=== PATIENT | male | born 1940 | race Caucasian/White ===

== ENCOUNTER → 2016-11-16 | Outpatient (CLI) | payer MEDICARE, OTHER ==
[~2016-11-16] MED LIST: AML5T PO; AMLO10TA2 PO; CEPH500C GT; CLCX200C; HYDR-3730 PO; HYDR1TAB PO; HYDR50TA3; KCL20TCR PO; LEVO500T80 PO; LISI20TA PO; POLY17PO6 PO; POTA10TA6 PO
--- NOTE | 2016-11-16 09:13 | Diagnostic Imaging Report ---
INDICATION: Hypertension. COMPARISON: None. DISCUSSION: Sonographic evaluation of the bilateral kidneys, aorta, and renal arteries was performed. Images were assessed for grayscale appearance, color and spectral Doppler blood flow. The kidneys appear normal in echotexture and size bilaterally without evidence of hydronephrosis or renal mass. No shadowing stone identified. The right kidney measures 10.9 cm. The left kidney measures 10.5 cm. The resistive indices are normal within the bilateral kidneys measuring 0.72 respectively. The proximal most left renal artery is obscured by bowel. Otherwise are normal flow velocities and waveforms present within the bilateral renal arteries with no sonographic evidence for renal artery stenosis at this time. IMPRESSION: 1. Normal sonographic appearance of the bilateral kidneys. 2. No sonographic evidence for renal artery stenosis at this time. Dictated by: Dictated on workstation # [id number]
== END ==
LOC: RAD 07:22
PROVIDERS: ATTEND Internal Medicine Cardiovascular Disease
DX: I10 Essential (primary) hypertension (principal); G89.29 Other chronic pain; Z87.891 Personal history of nicotine dependence
CPT/HCPCS: 93975

== ENCOUNTER → 2016-11-24 | Outpatient (CLI) | payer MEDICARE, OTHER ==
--- NOTE | 2016-11-25 07:46 | ECHOCARDIOGRAPHY REPORT ---
DATE OF SERVICE: 11/24/2016 REFERRING PHYSICIAN: Dr. Ramsey MEASUREMENT: LVID end diastolic 4.1, IVS thickness 1.3, LVPW thickness 1.3, left atrial diameter 3.3, ejection fraction 60%. FINDINGS: 1. Technical quality is good. 2. The left ventricle is normal in size with mild left ventricular hypertrophy noted diffusely. Systolic function appeared to be normal, estimated ejection fraction 60%, diastolic dysfunction is suggested by Doppler. 3. The left atrium is normal in size. No clot or thrombus were seen within the left atrium. 4. The right atrium and right ventricle are normal in size. No clot or thrombus were seen within the right side. 5. Mitral valve is normal in morphology with mild mitral regurgitation noted by color Doppler flow. No mitral valve prolapse. No mitral valve stenosis. 6. Aortic valve is calcified. There is no significant aortic valve stenosis or regurgitation was seen. 7. Tricuspid valve is normal in morphology with mild tricuspid regurgitation noted by color Doppler flow. Doppler across the tricuspid valve estimated pulmonary artery pressure of 15+ right atrial pressure. 8. Pulmonic valve is functioning normally. 9. No pericardial effusion. CONCLUSION: 1. Normal left ventricular size and systolic function, estimated ejection fraction 60%, mild left ventricular hypertrophy, diastolic dysfunction is suggested by Doppler. 2. Mild mitral and tricuspid regurgitation. 3. Estimated pulmonary artery pressure of 25 mmHg. Job ID: [id number] DocumentID: [id number] Dictated Date: 11/24/2016 15:04:12 Coating Machine Helper Date: 11/24/2016 18:54:23 Dictated By: TIERRA MARIN MD
== END ==
LOC: CARD 07:33
PROVIDERS: ATTEND Internal Medicine Cardiovascular Disease
DX: I10 Essential (primary) hypertension (principal); G89.29 Other chronic pain; Z87.891 Personal history of nicotine dependence
CPT/HCPCS: 93306

== ENCOUNTER → 2017-04-27 | Outpatient (CLI) | payer MEDICARE, OTHER ==
[~2017-04-27] VITALS: Ht 175.3 cm; Wt 86.2 kg
[~2017-04-27] MED LIST changes: +CATHETER FLUSH 10 ML SYR IV PRN; +REGADENOSON 0.4 MG/5 ML SYR (LEXISCAN) IV ONE
[2017-04-27 09:05] VITALS: BP 180/79
--- NOTE | 2017-04-28 11:14 | STRESS TEST ---
DATE OF SERVICE: 04/27/2017 LEXISCAN MYOVIEW STRESS TEST REPORT REFERRING PHYSICIAN: Dr. Ramesy. Baseline heart rate is 47. Baseline blood pressure is 180/79. Baseline EKG is sinus rhythm with no ischemic changes. In summary, the patient was injected with 10.45 mCi of technetium-99 Myoview and the resting images were obtained. Then, the patient received 0.4 mg of Lexiscan followed by 30.4 mCi of technetium-99 Myoview. Throughout the test, there were no EKG changes. The resting and stress images were reviewed and compared in the short axis, horizontal long axis, and vertical long axis views. Review of the images showed diaphragmatic attenuation. There is decreased uptake at the true apex, anteroapical and inferoapical segment of the left ventricle with mild reversibility. SSS is 5, SDS 4, TID value 1.06. On the gated images, the left ventricle appeared to be normal size with normal contractility. Calculated ejection fraction is 56%. CONCLUSION: 1. The patient tolerated the Lexiscan well. 2. Mild ischemia involving the true apex anteroapical and inferoapical segment. 3. Normal left ventricular size with normal contractility, calculated ejection fraction 56%. Job ID: [id number] DocumentID: [id number] Dictated Date: 04/27/2017 14:41:44 Grizzly Worker Date: 04/27/2017 19:13:48 Dictated By: TIERRA MARIN MD
== END ==
LOC: CARD 06:53
PROVIDERS: ATTEND Internal Medicine Cardiovascular Disease
DX: I10 Essential (primary) hypertension (principal); D47.2 Monoclonal gammopathy; R60.9 Edema, unspecified; G89.29 Other chronic pain; Z87.891 Personal history of nicotine dependence
CPT/HCPCS: 78452; 93017

== ENCOUNTER 2017-05-04 11:21 | Day surgery (SDC) | payer MEDICARE, OTHER ==
[~2017-05-04] VITALS: Ht 175.3 cm; Wt 86.2 kg
[2017-05-04] VITALS (11 sets, daily range): BP systolic 143–175; BP diastolic 67–102
[~2017-05-04 11:21] MED LIST changes: -CATHETER FLUSH 10 ML SYR IV PRN; -REGADENOSON 0.4 MG/5 ML SYR (LEXISCAN) IV ONE
[2017-05-04] MEDS ORDERED: HEParin 1000 UNIT/ML (10ML VIAL) FOR BOLUS ONE (11:28)
[2017-05-04] MEDS ORDERED: NS IV 1000 ML 3,000 ML ONE (11:28)
[2017-05-04 11:55] LABS: ALBUMIN 4.1 GM/DL (3.2-4.5); BILIRUBIN,DIRECT 0.3 MG/DL (0.0-0.3); BILIRUBIN,INDIRECT 0.5 MG/DL; BILIRUBIN,TOTAL 0.8 MG/DL (0.1-1.0); TOTAL PROTEIN 7.1 GM/DL (6.4-8.2)
[2017-05-04 12:05] LABS: MEAN PLATELET VOLUME 9.7 FL (7.4-10.4); RED BLOOD COUNT 4.79 10^6/uL (4.35-5.85); RED CELL DISTRIBUTION WIDTH 13.6 % (10.0-14.5); WHITE BLOOD COUNT 7.1 10^3/uL (4.3-11.0)
[2017-05-04] MEDS ORDERED: NS IV 1000 ML 1,000 ML IV SCH ×2 (12:15→14:21)
[2017-05-04 12:22] LABS: INR 0.9 (0.8-1.4); PROTHROMBIN TIME PATIENT 12.6 SEC (12.2-14.7)
--- NOTE | 2017-05-04 12:23 | Diagnostic Imaging Report ---
EXAMINATION: Portable upright radiograph of the chest. INDICATION: Abnormal stress test. FINDINGS: The lungs are clear. The heart size is at the upper limits of normal. No effusion or pneumothorax. The mediastinum and silvestre appear unremarkable. IMPRESSION: The cardiac size is at the upper limits of normal. Dictated by: Dictated on workstation # [id number]
[2017-05-04 12:32] LABS: ALANINE AMINOTRANSFERASE 17 U/L (0-55); ALBUMIN 4.2 GM/DL (3.2-4.5); ANION GAP 9 MMOL/L (5-14); ASPARTATE AMINO TRANSFERASE 20 U/L (5-34); BILIRUBIN,TOTAL 0.9 MG/DL (0.1-1.0); BLOOD UREA NITROGEN 12 MG/DL (7-18); BUN/CREATININE RATIO 16; CALCIUM 9.4 MG/DL (8.5-10.1); CARBON DIOXIDE 26 MMOL/L (21-32); CHLORIDE 104 MMOL/L (98-107); CHOLESTEROL 188 MG/DL (< 200); CREATININE SERUM 0.77 MG/DL (0.60-1.30); DIRECT LDL 125 MG/DL (1-129); GFR ESTIMATED > 60; GLUCOSE 114 MG/DL (70-105); POTASSIUM 3.6 MMOL/L (3.6-5.0); SODIUM 139 MMOL/L (135-145); TOTAL PROTEIN 7.2 GM/DL (6.4-8.2); TRIGLYCERIDES 94 MG/DL (<150); VLDL CHOLESTEROL 19 MG/DL (5-40)
[2017-05-04] MEDS ORDERED: FURO20TA4 PO (12:52)
[2017-05-04] MEDS ORDERED: LISI-552 PO (12:52)
[2017-05-04] MEDS ORDERED: NFNEB10T PO (12:52)
[2017-05-04] MEDS ORDERED: DOCU-143 PO (12:57)
[2017-05-04] MEDS ORDERED: CELE200C PO (12:57)
[2017-05-04] MEDS ORDERED: CETI10TA20 PO (12:57)
[2017-05-04] MEDS ORDERED: AMLO10TA2 PO (12:57)
[2017-05-04] MEDS ORDERED: CLON0.1T PO (12:57)
[2017-05-04] MEDS ORDERED: FURO40TA4 PO (12:57)
[2017-05-04] MEDS ORDERED: fentaNYL INJECTION 100 MCG/2 ML AMP ONE (13:24)
[2017-05-04] MEDS ORDERED: MIDAZOLAM 5 MG/5 ML (VERSED) VIAL ONE (13:24)
--- NOTE | 2017-05-04 14:21 | Cardiac Procedure Note-CS/ASA ---
Pre-Procedure Note Pre-Op Procedure Note H&P Reviewed The H&P was reviewed, patient examined and no changes noted. Date H&P Reviewed: May 04, 2017 Time H&P Reviewed: 13:00 Conscious Sedation Pre-Proced Time Reviewed: 13:00 ASA Class: 3 Airway Mallampati Classification: ([place] dee-ni' appropriate class) I. II. III, IV Lungs Heart ASA score ASA 1: a normal healthy patient ASA 2: a patient with a mild systemic disease (mid diabetes, controlled hypertension, obesity x ASA 3: a patient with a severe systemic disease that limits activity (angina , COPD, prior Myocardial infarction) ASA 4: a patient with an incapacitating disease that is a constant threat to life (CHF, renal failure) ASA 5: a moribund patient not expected to survive 24 hrs. (ruptured aneurysm) ASA 6: a declared brain patient whose organs are being harvested. For emergent operations, add the letter E after the classification Grade 3 Sedation Plan: Analgesia, Amnesia, Plan communicated to team members, Discussed options with patient/fam, Discussed risks with patient/fam Note The patient is an appropriate candidate to undergo the planned procedure, sedation, and anesthesia. The patient immediately re-assessed prior to indication. TIERRA MARIN MD May 04, 2017 14:21
--- NOTE | 2017-05-04 14:23 | Discharge Inst-Post CATH ---
Discharge Inst-CATH Post Cardiac Cath D/C Inst Follow Up/Plan Appointment with Dr Blas's office in 2-4 weeks CARDIAC CATH DISCHARGE INSTRUCTIONS *Hold Metformin for 48 hours post heart cath. ACTIVITY * Go Home directly and rest. * Limit activity of the leg (or wrist if it was used) for 7 days including aerobics, swimming, jogging, bicycling, etc. * Restrict stair-climbing for 7 days if possible, if not, climb up with your non -cath leg, then bring together on the same step. * Avoid lifting, pushing, pulling or excessive movement of the affected extremity for 7 days. * Customary sexual activity may be resumed after 2 days-use caution not to use a position that strains or causes pain to the affected extremity. * No driving for 24 hours. * NO SMOKING. * Avoid straining for bowel movements for 7 days. * Gentle walking on level ground is allowed. * Returning to work will depend on the type of procedure and the results. Your doctor will discuss this with you. CALL YOUR DOCTOR FOR ANY OF THE FOLLOWING: *If bleeding from the puncture site occurs- Apply gentle pressure to site with clean cloth and call your doctor or EMS. * If a knot or lump forms under the skin, increases in size, or causes pain. * If bruising appears to be worsening or moving further down your leg instead of disappearing. * Temperature above 101 F. CARE OF YOUR GROIN INCISION; * Bruising or purple discoloration of the skin near the puncture site is common. * You may shower only, no bathtub bathing for 5 days. Be careful to avoid slipping as your leg may feel stiff. * If a closure device was used on your femoral artery, please see the attached guide regarding care of the device and your leg. * REMOVE the dressing from your groin the next day after your procedure in the shower. CARE OF YOUR WRIST INCISION; * Bruising or purple discoloration of the skin near the puncture site is common. * You may shower. * DO NOT submerge wrist. * Remove dressing in 24 hours. TIERRA BLAS MD May 04, 2017 14:23
--- NOTE | 2017-05-04 14:26 | Cardiac Cath Report ---
Cardiac Cath Report Physician (s)/Brand Coordinator (s) Physician TIERRA MARIN MD Pre-Procedure Diagnosis Pre-Procedure Diagnosis: coronary artery disease Post-Procedure Note Procedure Start Date: May 04, 2017 Procedure Start Time: 14:23 Name of Procedure: heart catheterization Findings/Procedure Note PROCEDURE NOTE: After explaining the procedure to the patient, all pros and cons were explained, all questions were answered. The patient signed the consent and then she was placed on the cardiac catheterization laboratory. The patient was placed on the cardiac catheterization laboratory. Groin was prepped SL fashion local anesthesia was used. Sheath placed in the artery. Judie right and left catheter were used to access the coronary system. Pigtail was used to access the left ventricular cavity. Left ventriculogram At the end of the procedure the sheath was removed. Closure device was used FINDINGS: Hemodynamics LV 136/7 end-diastolic pressure of 7 Aorta 136/55 mean of 84 ANATOMY: Left Main his aneurysmal with no significant obstructive disease Left Anterior Descending is bifurcating proximally into a large diagonal artery and proper LAD. Both the same size with slow flow no significant obstructive disease Left Circumflex nondominant artery with slow flow obstructive disease Right Coronory Artery is a large dominant artery with diffuse ectasia and slow flow no significant obstructive disease LV Gram was not done, LVEDP is normal CONCLUSION: 1. 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 Large dominant right coronary artery with diffuse ectasia, slow flow nonobstructive disease 3. Normal left ventricular end-diastolic pressure DISCUSSION AND RECOMMENDATION: medical therapy is recommended no intervention is warranted Anesthesia Type: Conscious Sedation Estimated blood loss (mL): 10 ml Contrast Amount: 55 ml Total Radiation Dose: 599 mGy Post-Procedure Diagnosis Post-operative diagnosis: coronary artery disease Hypertension Hyperlipidemia TIERRA MARIN MD May 04, 2017 14:25
[2017-05-04] MEDS ORDERED: PATIENT MAY USE OWN MEDS, ALL PO SCH (14:30)
== END 2017-05-04 19:28 | disposition home or self-care (01) ==
LOC: CATH 11:21 → ICU 14:54 → CATH 19:28
PROVIDERS: ATTEND Internal Medicine Cardiovascular Disease
DX: I25.10 Atherosclerotic heart disease of native coronary artery without angina pectoris (principal); I10 Essential (primary) hypertension; E78.5 Hyperlipidemia, unspecified; I49.5 Sick sinus syndrome; I65.23 Occlusion and stenosis of bilateral carotid arteries; R60.0 Localized edema; M19.91 Primary osteoarthritis, unspecified site; Z79.899 Other long term (current) drug therapy
CPT/HCPCS: 36415; 71010; 80053; 80061; 80076; 82248; 85027; 85610; 85730; 87081; 93005; 93458

== ENCOUNTER → 2017-09-30 | Outpatient (CLI) | payer MEDICARE, OTHER ==
[~2017-09-30] MED LIST changes: +BARIUM SUSPENSION 2.1% (VANILLA SILQ) 450 ML PO ONE; +CELE200C PO; +CETI10TA20 PO; +CLON0.1T PO; +DOCU-143 PO; +FURO20TA4 PO; +FURO40TA4 PO; +IOHEXOL 350 MG/ML 100 ML (OMNIPAQUE 350) VIAL IV ONE; +LISI-552 PO; +NFNEB10T PO; +NS 250 ML (IVPB) BAG IV ONE
--- NOTE | 2017-09-30 09:32 | Diagnostic Imaging Report ---
PROCEDURE: CT chest with contrast, CT abdomen and pelvis with and without contrast. TECHNIQUE: Pre and post intravenous contrast axial imaging of the abdomen and pelvis and post contrast axial imaging of the chest were performed. INDICATION: History of melanoma COMPARISON: Abdomen and pelvis CT dated 10/17/2015. Chest CT dated 01/11/2008 FINDINGS: Chest CT: There are a few tiny nodules seen in the lungs which are unchanged from 2008 and are likely granuloma. No new or suspicious pulmonary nodules are seen. There is no consolidation. There is no pneumothorax or pleural fluid. There is minimal atelectasis or scarring at the left lung base. There is a new 5 mm low-density nodule in the left thyroid lobe. There are a few prominent mediastinal lymph nodes, however, they are unchanged from 2008 and likely benign. No suspicious adenopathy is seen. There are degenerative changes in the spine. Abdomen/pelvis CT: A cyst near the caudate lobe of the liver is unchanged. No new focal hepatic mass is seen. The portal vein enhances normally. The gallbladder appears unremarkable. There is no biliary dilatation. The pancreas, spleen and adrenal glands appear unremarkable. The kidneys appear unremarkable. No urinary tract calcifications or obstructive change is seen. The bladder appears unremarkable. The prostate is surgically absent. There is no evidence of appendicitis or focal inflammatory process. There is diverticulosis without evidence of diverticulitis. There is atherosclerosis and ectasia of the abdominal aorta. There is no free fluid, free air or adenopathy. There are postoperative and degenerative changes in the spine. IMPRESSION: 1. In the chest, there is no convincing evidence of metastatic disease. Tiny nodules and prominent mediastinal lymph nodes are unchanged from 2008 and likely related to granulomatous disease. 2. There is a new tiny low-density nodule in the left thyroid lobe likely benign but indeterminate. 3. In the abdomen and pelvis, no convincing evidence of metastatic disease 4. Stable findings include left hepatic cysts and diverticulosis without evidence of diverticulitis as well as atherosclerosis and ectasia of the abdominal aorta. Dictated by: Dictated on workstation # [id number]
== END ==
LOC: RAD 07:46
PROVIDERS: ATTEND Internal Medicine Hematology & Oncology
DX: K76.89 Other specified diseases of liver (principal); K57.90 Diverticulosis of intestine, part unspecified, without perforation or abscess without bleeding; I70.0 Atherosclerosis of aorta; I77.811 Abdominal aortic ectasia; Z85.820 Personal history of malignant melanoma of skin; Z90.79 Acquired absence of other genital organ(s); Z87.891 Personal history of nicotine dependence
CPT/HCPCS: 71260; 74178

== ENCOUNTER 2017-10-05 05:33 | Outpatient (CLI) | payer MEDICARE, OTHER ==
[~2017-10-05] VITALS: Ht 175.3 cm; Wt 86.2 kg
[~2017-10-05 05:33] MED LIST changes: -BARIUM SUSPENSION 2.1% (VANILLA SILQ) 450 ML PO ONE; -IOHEXOL 350 MG/ML 100 ML (OMNIPAQUE 350) VIAL IV ONE; -NS 250 ML (IVPB) BAG IV ONE
[2017-10-05] MEDS ORDERED: ASPI-586 PO (12:26)
[2017-10-05] MEDS ORDERED: FURO20TA4 PO (12:26)
[2017-10-05] MEDS ORDERED: FISH1CAP15 PO (12:26)
== END 2017-10-05 12:49 ==
LOC: PREOP 05:33
PROVIDERS: ATTEND Surgery
DX: Z01.818 Encounter for other preprocedural examination (principal); C43.62 Malignant melanoma of left upper limb, including shoulder

== ENCOUNTER → 2017-10-06 | Outpatient (CLI) | payer MEDICARE, OTHER ==
[~2017-10-06] MED LIST changes: +ACHD5005 PO; +ASPI-586 PO; +FISH1CAP15 PO
--- NOTE | 2017-10-06 10:27 | Diagnostic Imaging Report ---
PROCEDURE: US Thyroid. TECHNIQUE: Multiple Real-time grayscale images were obtained of the thyroid in various projections. INDICATION: Thyroid nodule seen on CT. FINDINGS: The right lobe of the thyroid measures 4.6 x 1.5 x 1.6 cm. The left lobe of the thyroid measures 3.5 x 1.5 x 1.4 cm. There is a slightly complex cyst in the left lobe measuring 0.7 x 0.6 x 0.7 cm. No other discrete solid or cystic mass is appreciated. IMPRESSION: Slightly complex cyst in the left lobe of the thyroid measuring up to 0.7 cm; otherwise, unremarkable thyroid ultrasound. Dictated by: Dictated on workstation # [id number]
== END ==
LOC: RAD 07:47
PROVIDERS: ATTEND Surgery
DX: E04.1 Nontoxic single thyroid nodule (principal)
CPT/HCPCS: 76536

== ENCOUNTER 2017-10-07 07:18 | Day surgery (SDC) | payer MEDICARE, OTHER ==
[~2017-10-07] VITALS: Ht 175.3 cm; Wt 86.2 kg
[~2017-10-07 07:18] MED LIST changes: -ACHD5005 PO
[2017-10-07] MEDS ORDERED: LACTATED RINGERS 1,000 ML IV PRN (07:27)
[2017-10-07] MEDS ORDERED: ceFAZolin 2 GM IV Premixed 50 ML IV ONE (07:30)
[2017-10-07 07:52] VITALS: BP 176/92
[2017-10-07] MEDS ORDERED: DEXAMETHASONE 10 MG/ML (DECADRON) 1 ML VIAL ONE (09:54)
[2017-10-07] MEDS ORDERED: LIDOCAINE PF 2% 5 ML (XYLOCAINE) VIAL ONE (09:54)
[2017-10-07] MEDS ORDERED: SEVOFLURANE (ULTANE) 15 ML INHAL SOLN ONE ×2 (09:54→13:30)
[2017-10-07] MEDS ORDERED: proPOfol 200 MG/20 ML (DIPRIVAN) VIAL IV ONE (09:54)
[2017-10-07] MEDS ORDERED: ONDANSETRON 4 MG/2 ML (SDV) Z0FRAN ONE (09:54)
[2017-10-07] MEDS ORDERED: fentaNYL INJECTION 100 MCG/2 ML AMP ONE (09:55)
[2017-10-07] MEDS ORDERED: BUP/EPI 0.5% 1:200,000 (SENSORCAINE) 30 ML VIAL ONE (10:11)
--- NOTE | 2017-10-07 10:19 | Progress Note-Pre Operative ---
Pre-Operative Progress Note H&P Reviewed The H&P was reviewed, patient examined and no changes noted. Date Seen by Provider: Oct 03, 2017 Time Seen by Provider: 16:25 Date H&P Reviewed: Oct 07, 2017 Time H&P Reviewed: 10:19 Pre-Operative Diagnosis: Melanoma of left forearm KIKI ROWE MD Oct 07, 2017 10:19 am
[2017-10-07] MEDS ORDERED: EPINEPHrine INJECTION 1 MG/ML AMP ONE (10:31)
[2017-10-07] MEDS ORDERED: INDIGO CARMINE 8 MG/ML 5 ML AMP ONE (10:59)
--- NOTE | 2017-10-07 11:03 | Diagnostic Imaging Report ---
Procedure: Lymphoscintigraphy. Indication: Melanoma of the left lung. Findings: This study was performed following administration of 1.1 mCi of 99 and technetium sulfur colloid in 4 divided doses about the biopsy site in the left forearm. There was uptake of the radiotracer by 2 lymph nodes in the left axilla. The skin over the lymph nodes was marked. Impression: There has been a successful lymphoscintigraphy procedure. Dictated by: Dictated on workstation # [id number]
[2017-10-07] MEDS ORDERED: ATROPINE INJ 0.4 MG/ML SDV ONE (11:24)
[2017-10-07] MEDS ORDERED: fentaNYL INJECTION 100 MCG/2 ML AMP IVP PRN (13:45)
[2017-10-07] MEDS ORDERED: ONDANSETRON 4 MG/2 ML (SDV) Z0FRAN IVP PRN (13:45)
--- NOTE | 2017-10-07 13:55 | Anesthesia-General Post-Op ---
General Patient Condition Mental Status/LOC: Same as Preop Cardiovascular: Satisfactory Nausea/Vomiting: Absent Respiratory: Satisfactory Pain: Controlled Complications: Absent Post Op Complications Complications None Follow Up Care/Instructions Patient Instructions None needed. Anesthesia/Patient Condition Patient Condition Patient is doing well, no complaints, stable vital signs, no apparent adverse anesthesia problems. No complications reported per nursing. CONNIE POWERS CRNA Oct 07, 2017 13:55
--- NOTE | 2017-10-07 14:00 | Operative Report ---
Operative Report Date of Procedure/Surgery Oct 07, 2017 Surgeon (s) KIKI ROWE MD Auto Repair Technician (s): n/a Post-Operative Diagnosis Malignant melanoma left forearm Large, darkly pigmented lymph nodes- left axilla Procedure Performed Wide excision of melanoma from the left forearm(6 x 6 cm) Split thickness skin grafting( 36 cm) Level II axillary dissection Description of Procedure Anesthesia Type: General Estimated blood loss (mL): Minimal Specimen(s) collected/removed level II axillary contents sent in 2 separate containers Melanoma from the left forearm with skin markings Description of the Procedure Indication for the procedure: Excision biopsy of a pigmented lesion, that developed ulceration, performed by his primary physician, Dr. Ramsey, was confirmed to be a deep melanoma, at least 5.1 mm in depth. Metastatic evaluation performed by his oncologist was negative. However, as would be described in the operative report, enlarged and darkly pigmented lymph nodes were found in the ipsilateral axilla. He was offered wide excision of the melanoma with split-thickness skin grafting , combined with sentinel lymph node biopsy. The possibility of requiring conventional axillary dissection was discussed. Informed consent was obtained after reviewing the operative details and complications of hematoma, cardiorespiratory dysfunction and failure of the graft. description of the procedure: Following his admission to the outpatient surgery area, he underwent lymphoscintigraphy using technetium labeled sulfur colloid. Activity was noticed in the ipsilateral axilla. He was then brought to the operating room and general anesthesia induced. Left thigh, left upper extremity and the left axilla were prepared and draped in the usual sterile manner. Ancef was administered intravenously as prophylaxis against wound infection. 5 mL of indigo carmine was injected intradermally into the area around the site of excision biopsy and the skin gently massaged for at least minutes. [place] lymph node biopsy/level II axillary dissection: Left axilla was prepared and draped in the usual sterile manner. Pre-emptive analgesia was established using 0.5 percent Marcaine with epinephrine. A 4 cm incision was made inferior to the axillary hairline, entering the axillary contents. Exploration with the [place] counter did not reveal any significant activity. Further dissection displayed multiple, darkly pigmented lymph nodes just inferior to the axillary vein. A large lymph node at least 4 cm in diameter, was excised separately and sent for histologic examination. Lymphatics were controlled using ligaclips. Further exploration revealed another cluster of enlarged and darkly pigmented nodes close to the chest wall. These were excised en bloc, being sent as a separate specimen. Technically, both specimens should be considered to constitute level II axillary contents. Lymphatics were controlled using ligaclips and hemostasis optimized using the Harmonic scalpel. A 15 [place] Pieter-Pérez drain was left in the axilla, being secured using 2-0 silk sutures. The area was irrigated with saline and the incision closed using 2-0 Vicryl for the subcutaneous tissue and 4-0 Vicryl for skin, in a subcuticular fashion. Wide excision of melanoma left forearm with split thickness skin grafting: A split thickness skin graft was obtained from the left thigh using the dermatome and meshed in a standard fashion. The primary lesion over the left forearm was excised 3 cm margin all around the scar resulting from the excision biopsy. The specimen was oriented with silk sutures and sent for histological examination. Hemostasis was optimized using ligaclips and minimal use of cautery. The skin graft was then placed over the site of excision and secured with kia. A nonadherent dressing was then applied. He tolerated the procedures well, was extubated in the operating room and taken to the recovery room in a stable condition. Findings of the Procedure See op report Allergies and Home Medications Allergies Coded Allergies: No Known Drug Allergies (Unverified , 10/05/17) Home Medications Amlodipine Besylate 10 Mg Tablet, 10 MG PO 1700, (Reported) Aspirin 81 Mg Tablet.dr, 81 MG PO DAILY, (Reported) Celecoxib 200 Mg Capsule, 200 MG PO DAILY, (Reported) Clonidine HCl 0.1 Mg Tablet, 0.1 MG PO BID, (Reported) Docusate Sodium 100 Mg Capsule, 200 MG PO DAILY, (Reported) TAKES 2 (100MG) CAPSULES Fish Oil/Dha/Epa 1 Each Capsule, 2 EACH PO BID, (Reported) Furosemide 20 Mg Tablet, 20 MG PO DAILY, (Reported) Lisinopril 20 Mg Tablet, 20 MG PO DAILY, (Reported) Nebivolol HCl 10 Mg Tab, 10 MG PO DAILY, (Reported) Polyethylene Glycol 3350 17 Gm Powd.pack, 17 GM PO DAILY, (Reported) Patient Home Medication List Home Medication List Reviewed: Yes KIKI ROWE MD Oct 07, 2017 2:00 pm
[2017-10-07] MEDS ORDERED: ACHD5005 PO (14:02)
--- NOTE | 2017-10-07 14:03 | Discharge Inst-Simple/Standard ---
Discharge Inst-Standard Discharge Medications New, Converted or Re-Newed RX: RX on Chart Patient Instructions/Follow Up Plan of Care/Instructions/FU: Left upper extremity to be left untouched until next Tuesday. Left hand to be kept elevated on pillows as much as possible. May reinforce the left thigh with ABD pads as required. Please educate on caring for CONSTANCE drain and have him document output on a daily basis.Follow-up with my nurse on Tuesday for dressing change Activity as Tolerated: Yes Discharge Diet: No Restrictions KIKI ROWE MD Oct 07, 2017 2:03 pm
[2017-10-07] MEDS: morphine INJ 10 MG/ML 1ML (SYR OR VIAL) IVP PRN ×2 (14:05→14:09)
[2017-10-07 14:35] VITALS: BP 136/84
[2017-10-07 15:05] VITALS: BP 136/76
[2017-10-07 15:37] VITALS: BP 136/76
== END 2017-10-07 15:37 | disposition home or self-care (01) ==
LOC: SDC 07:18
PROVIDERS: ATTEND Surgery
DX: C43.62 Malignant melanoma of left upper limb, including shoulder (principal); C77.3 Secondary and unspecified malignant neoplasm of axilla and upper limb lymph nodes; I10 Essential (primary) hypertension; Z79.82 Long term (current) use of aspirin; Z79.899 Other long term (current) drug therapy; Z87.891 Personal history of nicotine dependence
CPT/HCPCS: 78195; 87081

== ENCOUNTER → 2017-10-18 | Outpatient (CLI) | payer MEDICARE, OTHER ==
[~2017-10-18] MED LIST changes: +ACHD5005 PO
--- NOTE | 2017-10-18 13:06 | Diagnostic Imaging Report ---
INDICATION: Malignant melanoma of the left forearm. TECHNIQUE: The serum glucose level at the time of injection was 126 g/dL. The patient was administered 13.3 mCi of F18 FDG intravenously and whole body PET imaging was performed. In addition, a noncontrast CT was performed for attenuation correction and anatomic correlation. COMPARISON: No prior PET/CT studies are available for comparison. FINDINGS: There is symmetric uptake of activity within the brain. No abnormal hypermetabolism within the neck is identified. There are at least 3 hypermetabolic lymph nodes identified in the left axilla. The most inferior lymph node is just anterior to surgical clips in the left axilla with an SUV max of approximately 7. Just cephalad to this, there is a hypermetabolic lymph node located immediately posterior to a set of clips with an SUV max of approximately 6. Slightly more cephalad, there is a slightly hypermetabolic lymph node medial to surgical clips at the level of the clavicular heads with an SUV max of approximately 3. A very low level metabolic node is seen just lateral to this with an SUV max of approximately 2.6. In addition, there appears to be a hypermetabolic lymph node in the left supraclavicular location with an SUV max of approximately 4. No hypermetabolic mediastinal or hilar lymph nodes are seen. The pulmonary parenchyma is unremarkable. Imaging through the abdomen demonstrates physiologic activity within the liver and spleen as well as the genitourinary and GI tracts. There is an area of hypermetabolism noted in the inferior aspect of the right lobe of the liver medially. This is posterior to the gallbladder and demonstrates an SUV max of 5.2; however, no corresponding abnormality is identified at this location on CT. No abnormality on the recent postcontrast CT from 09/30/2017 is identified. There is also a slightly more focal region of uptake involving the right lobe of the liver near the cecum with an SUV max of 5.6. No definite corresponding abnormality is identified on CT and this is indeterminate. Normal bladder activity is seen. No hypermetabolic nodes in the abdomen or pelvis are identified. Imaging through the lower extremities does demonstrate a focus of hypermetabolism immediately posterior to the left knee at the intercondylar notch in the midline. This demonstrates SUV max of 3.5. IMPRESSION: 1. Findings are suggestive of a metastatic lymph node in the left supraclavicular and left axillary region. 2. No thoracic lymphadenopathy or pulmonary metastatic disease is seen. 3. Indeterminate area of hypermetabolism in the right lobe of the liver with no CT correlate. Consideration could be given to performance of an MRI of the abdomen for further characterization. 4. Focal area of hypermetabolism in the region of the cecum with no CT correlate. A colonic lesion cannot be entirely excluded and correlation with colonoscopy would be recommended. 5. Indeterminate focus of hypermetabolism posterior left knee, as described. MRI of the left knee with without intravenous contrast would be useful for further evaluation. Dictated by: Dictated on workstation # [id number]
== END ==
LOC: RAD 08:25
PROVIDERS: ATTEND Surgery
DX: C43.62 Malignant melanoma of left upper limb, including shoulder (principal)

== ENCOUNTER → 2017-10-28 | Outpatient (CLI) | payer MEDICARE, OTHER ==
[~2017-10-28] MED LIST changes: +GADOBUTROL 10 MMOL/10 ML (GADAVIST) VIAL IV ONE
--- NOTE | 2017-10-28 10:22 | Diagnostic Imaging Report ---
PROCEDURE: MR imaging abdomen with and without contrast. TECHNIQUE: Multiplanar, multisequence MR imaging of the abdomen was performed with and without contrast. INDICATION: Abnormal PET scan demonstrating an area of questionable hypermetabolism in the right lobe of the liver, medially just posterior to the gallbladder. The study is performed for further evaluation. FINDINGS: Correlation is made with PET CT from 10/18/2017. There is a small cyst in the right lobe of the liver adjacent to the IVC, measuring 14 mm. No enhancing liver lesion is seen. Specifically, no abnormality in the right lobe medially posterior to the gallbladder is identified to account for the PET CT abnormality. Gallbladder is unremarkable. The pancreas and spleen are unremarkable. No adrenal mass is seen. Kidneys are unremarkable. There is no ascites. There is spinal instrumentation within the lumbar spine. IMPRESSION: No evidence of solid hepatic mass at the area of concern noted on the PET scan. This most likely represented artifact. Patient does have a 14 mm simple cyst more superiorly in the right lobe of the liver. Remainder of the study is unremarkable. Dictated by: Dictated on workstation # [id number]
== END ==
LOC: RAD 07:15
PROVIDERS: ATTEND Internal Medicine Hematology & Oncology
DX: K76.89 Other specified diseases of liver (principal)
CPT/HCPCS: 74183

== ENCOUNTER → 2017-10-29 | Outpatient (CLI) | payer MEDICARE, OTHER ==
--- NOTE | 2017-10-31 14:05 | Diagnostic Imaging Report ---
TECHNIQUE: Multiplanar, multisequence pre and post contrast-enhanced MRI of the left lower extremity was accomplished. INDICATION: History of melanoma. Abnormal findings on recent PET scan within the knee. EXAMINATION: MRI of the left lower extremity with and without contrast, 10/29/2017. Correlation made to a PET/CT from 10/18/17. FINDINGS: Within the posterior aspect of the knee in the intercondylar notch, there is a focus of hypermetabolic activity on PET scan. Within this corresponding region on today's MRI, no measurable enhancing lesions are appreciated. The postcontrast images demonstrate no evidence for acute abnormalities. The extensor mechanism appears intact. The ACL and PCL are intact but contain degenerative signal. The MCL and the lateral collateral ligamentous complex appear unremarkable. There is diffuse irregularity and high signal throughout the posterior horn and anterior horn of the lateral meniscus which involve the lateral meniscal body as well. This is consistent with a diffuse degenerative-type tear. The lateral meniscus is overall somewhat prominent in appearance perhaps due to a discoid meniscus. The medial meniscus posteriorly demonstrates diffuse multidirectional irregularity and high signal consistent with a degenerative type of tear which extends into the body and portions of the anterior horn. A small amount of fluid within the joint space is noted. A tiny Bishop's cyst is also seen. The cartilage in the patellofemoral joint space is fairly well maintained with only mild fissuring overlying the lateral patellar facet. Cartilage in the medial joint compartment demonstrates diffuse irregularity. Marked loss overlying the tibial plateau is noted. Within the lateral joint compartment, there is overall moderate thinning of the cartilage. Along the posterior border of the lateral femoral condyle seen on image 18 of on the STIR sagittal sequence, there is a focal area of edema which extends into the subchondral bone with irregularity of the overlying cartilage. This is in the general location of the abnormality questioned on PET scan. However, the abnormality on PET scan may even correspond to the adjacent ACL. Correlate clinically for a recent injury to the ACL which may be causing hypermetabolic activity. There are small cystic changes along the anterior aspect of the knee along the posterior border of Hoffa's fat pad. These are nonspecific but could represent parameniscal cysts. IMPRESSION: 1. No definite mass seen at the site of concern on PET scan. Within the region, an irregular appearing ACL is noted, correlate clinically for a possible ACL injury. In the adjacent posterolateral femoral condyle, there is a focal cortical defect and subchondral edema which extends into the subchondral bone. This could also be the source of abnormal hypermetabolic activity and has the appearance of degenerative disease on this examination; however, dedicated CT imaging of the knee may better characterize this process. 2. Medial and lateral meniscal tears. Other incidental findings as discussed above. Dictated by: Dictated on workstation # [id number]
== END ==
LOC: RAD 07:31
PROVIDERS: ATTEND Internal Medicine Hematology & Oncology
DX: S83.282A Other tear of lateral meniscus, current injury, left knee, initial encounter (principal); S83.242A Other tear of medial meniscus, current injury, left knee, initial encounter; Z85.820 Personal history of malignant melanoma of skin
CPT/HCPCS: 73723

== ENCOUNTER → 2017-10-31 | Outpatient (CLI) | payer MEDICARE, OTHER ==
--- NOTE | 2017-10-31 08:51 | Diagnostic Imaging Report ---
PROCEDURE: MR imaging of the brain with and without contrast. TECHNIQUE: Multiplanar, multisequence MR imaging of the brain was performed with and without contrast. INDICATION: History of skin cancer and recent abnormal PET/CT study. COMPARISON: No prior MRI of the brain is available for comparison. FINDINGS: No diffusion restriction is identified to suggest acute ischemia. Normal expected flow-voids within the carotid siphons are seen. Ventricles and sulci are prominent consistent with the patient's age. Mild periventricular and subcortical white matter signal abnormalities are noted, likely on the basis of chronic microvascular ischemia and no sulcal effacement or mass effect is seen. No acute intra-axial or extra-axial hemorrhage is detected. Corpus callosum is unremarkable. The sella and parasellar structures are unremarkable. No abnormal enhancement is identified following contrast administration. IMPRESSION: Chronic and senescent changes. No acute intracranial process is seen. No findings to suggest intracranial metastatic disease are identified. Dictated by: Dictated on workstation # [id number]
== END ==
LOC: RAD 07:42
PROVIDERS: ATTEND Internal Medicine Hematology & Oncology
DX: Z85.820 Personal history of malignant melanoma of skin (principal)
CPT/HCPCS: 70553

== ENCOUNTER 2017-11-02 10:49 | Outpatient (RCR) | payer MEDICARE, OTHER ==
[2017-09-28 09:26] LABS: BASOPHILS % (AUTO) 0 % (0-10); EOSINOPHILS # (AUTO) 0.2 10^3/uL (0.0-0.3); EOSINOPHILS % (AUTO) 3 % (0-10); HEMATOCRIT 42 % (40-54); LYMPHOCYTES # (AUTO) 1.5 X 10^3 (1.0-4.0); LYMPHOCYTES % (AUTO) 27 % (12-44); MEAN CORPUSCULAR HEMOGLOBIN 29 PG (25-34); MEAN CORPUSCULAR HGB CONC 34 G/DL (32-36); MEAN CORPUSCULAR VOLUME 87 FL (80-99); MEAN PLATELET VOLUME 9.8 FL (7.4-10.4); MONOCYTES # (AUTO) 0.4 X 10^3 (0.0-1.0); MONOCYTES % (AUTO) 7 % (0-12); NEUTROPHILS # (AUTO) 3.4 X 10^3 (1.8-7.8); NEUTROPHILS % (AUTO) 62 % (42-75); PLATELET COUNT 260 10^3/uL (130-400); RED BLOOD COUNT 4.79 10^6/uL (4.35-5.85); RED CELL DISTRIBUTION WIDTH 13.6 % (10.0-14.5); WHITE BLOOD COUNT 5.5 10^3/uL (4.3-11.0)
[2017-09-28 09:41] LABS: ALANINE AMINOTRANSFERASE 26 U/L (0-55); ALBUMIN 4.2 GM/DL (3.2-4.5); ALKALINE PHOSPHATASE 76 U/L (40-136); BILIRUBIN,TOTAL 0.9 MG/DL (0.1-1.0); BUN/CREATININE RATIO 19; CALCIUM 9.4 MG/DL (8.5-10.1); CARBON DIOXIDE 32 MMOL/L (21-32); CHLORIDE 102 MMOL/L (98-107); CREATININE SERUM 0.78 MG/DL (0.60-1.30); GFR ESTIMATED > 60; GLUCOSE 126 MG/DL (70-105); POTASSIUM 3.4 MMOL/L (3.6-5.0); SODIUM 140 MMOL/L (135-145); TOTAL PROTEIN 7.3 GM/DL (6.4-8.2)
[2017-10-19 10:14] LABS: BASOPHILS % (AUTO) 1 % (0-10); EOSINOPHILS # (AUTO) 0.3 10^3/uL (0.0-0.3); EOSINOPHILS % (AUTO) 5 % (0-10); HEMATOCRIT 39 % (40-54); HEMOGLOBIN 13.1 G/DL (13.3-17.7); LYMPHOCYTES # (AUTO) 1.5 X 10^3 (1.0-4.0); LYMPHOCYTES % (AUTO) 26 % (12-44); MEAN CORPUSCULAR HEMOGLOBIN 29 PG (25-34); MEAN CORPUSCULAR HGB CONC 34 G/DL (32-36); MEAN CORPUSCULAR VOLUME 86 FL (80-99); MEAN PLATELET VOLUME 10.2 FL (7.4-10.4); MONOCYTES # (AUTO) 0.4 X 10^3 (0.0-1.0); MONOCYTES % (AUTO) 7 % (0-12); NEUTROPHILS # (AUTO) 3.6 X 10^3 (1.8-7.8); NEUTROPHILS % (AUTO) 62 % (42-75); PLATELET COUNT 255 10^3/uL (130-400); RED BLOOD COUNT 4.52 10^6/uL (4.35-5.85); RED CELL DISTRIBUTION WIDTH 13.9 % (10.0-14.5); WHITE BLOOD COUNT 5.8 10^3/uL (4.3-11.0)
[2017-10-19 10:34] LABS: ALANINE AMINOTRANSFERASE 16 U/L (0-55); ALBUMIN 4.1 GM/DL (3.2-4.5); ALKALINE PHOSPHATASE 72 U/L (40-136); BILIRUBIN,TOTAL 0.6 MG/DL (0.1-1.0); BUN/CREATININE RATIO 25; CALCIUM 9.4 MG/DL (8.5-10.1); CARBON DIOXIDE 27 MMOL/L (21-32); CHLORIDE 106 MMOL/L (98-107); CREATININE SERUM 0.83 MG/DL (0.60-1.30); GFR ESTIMATED > 60; GLUCOSE 132 MG/DL (70-105); POTASSIUM 3.7 MMOL/L (3.6-5.0); SODIUM 140 MMOL/L (135-145); TOTAL PROTEIN 7.1 GM/DL (6.4-8.2)
[~2017-11-02 10:49] MED LIST changes: -GADOBUTROL 10 MMOL/10 ML (GADAVIST) VIAL IV ONE
== END 2017-11-03 16:50 | disposition home or self-care (01) ==
LOC: ONC 10:49
PROVIDERS: ATTEND Internal Medicine Hematology & Oncology
DX: C43.62 Malignant melanoma of left upper limb, including shoulder (principal); D47.2 Monoclonal gammopathy; I25.10 Atherosclerotic heart disease of native coronary artery without angina pectoris; I10 Essential (primary) hypertension; I49.5 Sick sinus syndrome; M19.91 Primary osteoarthritis, unspecified site; Z79.899 Other long term (current) drug therapy; Z79.82 Long term (current) use of aspirin; Z87.891 Personal history of nicotine dependence
CPT/HCPCS: 36415; 80053; 83883; 84153; 84155; 84165; 85025; 99213; 99214

== ENCOUNTER 2017-11-09 05:39 | Outpatient (CLI) | payer MEDICARE, OTHER ==
[~2017-11-09] VITALS: Ht 175.3 cm; Wt 86.2 kg
[2017-11-11] MEDS ORDERED: ACHD5005 PO (10:05)
== END 2017-11-09 10:52 ==
LOC: PREOP 05:39
PROVIDERS: ATTEND Surgery
DX: Z01.818 Encounter for other preprocedural examination (principal)

== ENCOUNTER → 2017-11-09 | Outpatient (CLI) | payer MEDICARE, OTHER ==
[2017-11-09 09:11] LABS: ALANINE AMINOTRANSFERASE 17 U/L (0-55); ALBUMIN 4.1 GM/DL (3.2-4.5); ALKALINE PHOSPHATASE 76 U/L (40-136); BILIRUBIN,TOTAL 0.7 MG/DL (0.1-1.0); BUN/CREATININE RATIO 20; CALCIUM 9.2 MG/DL (8.5-10.1); CARBON DIOXIDE 28 MMOL/L (21-32); CHLORIDE 106 MMOL/L (98-107); CHOLESTEROL 177 MG/DL (< 200); CREATININE SERUM 0.74 MG/DL (0.60-1.30); GFR ESTIMATED > 60; GLUCOSE 118 MG/DL (70-105); HDL CHOLESTEROL 48 MG/DL (40-60); POTASSIUM 3.7 MMOL/L (3.6-5.0); SODIUM 141 MMOL/L (135-145); TOTAL PROTEIN 6.8 GM/DL (6.4-8.2); TRIGLYCERIDES 80 MG/DL (<150); VLDL CHOLESTEROL 16 MG/DL (5-40)
== END ==
LOC: LAB 08:06
PROVIDERS: ATTEND Physician Assistant
DX: E78.2 Mixed hyperlipidemia (principal); I10 Essential (primary) hypertension
CPT/HCPCS: 36415; 80053; 80061

== ENCOUNTER 2017-11-11 06:43 | Day surgery (SDC) | payer MEDICARE, OTHER ==
[~2017-11-11] VITALS: Ht 175.3 cm; Wt 86.2 kg
[2017-11-11] MEDS ORDERED: ceFAZolin 2 GM IV Premixed 50 ML IV ONE (07:00)
--- NOTE | 2017-11-11 07:00 | Progress Note-Pre Operative ---
Pre-Operative Progress Note H&P Reviewed The H&P was reviewed, patient examined and no changes noted. 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
[2017-11-11] MEDS: LACTATED RINGERS 1,000 ML IV PRN ×2 (07:15→08:26)
[2017-11-11] MEDS ORDERED: BUP/EPI 0.5% 1:200,000 (SENSORCAINE) 30 ML VIAL ONE ×2 (07:19→08:25)
[2017-11-11] MEDS ORDERED: HEParin (CENTRAL IV FLUSH) 500 UNIT/5 ML SYR ONE (07:19)
[2017-11-11] MEDS ORDERED: 0.9% SODIUM CHLORIDE PF INJ 20 ML VIAL ONE (07:19)
[2017-11-11] MEDS ORDERED: ceFAZolin 2 GM IV Premixed 50 ML ONE (07:26)
[2017-11-11] MEDS ORDERED: SEVOFLURANE (ULTANE) 15 ML INHAL SOLN ONE ×7 (07:32→10:05)
[2017-11-11] MEDS ORDERED: MIDAZOLAM 2 MG/2 ML (VERSED) VIAL ONE (07:32)
[2017-11-11] MEDS ORDERED: DEXAMETHASONE 10 MG/ML (DECADRON) 1 ML VIAL ONE (07:32)
[2017-11-11] MEDS ORDERED: LIDOCAINE PF 2% 5 ML (XYLOCAINE) VIAL ONE (07:32)
[2017-11-11] MEDS ORDERED: fentaNYL INJECTION 100 MCG/2 ML AMP ONE (07:32)
[2017-11-11] MEDS ORDERED: proPOfol 200 MG/20 ML (DIPRIVAN) VIAL IV ONE (07:32)
[2017-11-11] MEDS ORDERED: ONDANSETRON 4 MG/2 ML (SDV) Z0FRAN ONE (07:32)
[2017-11-11 08:04] VITALS: BP 165/83
[2017-11-11] MEDS ORDERED: GLYCOPYRROLATE 0.2 MG/ML (ROBINUL) 2 ML VIAL ONE (08:08)
--- NOTE | 2017-11-11 09:54 | Diagnostic Imaging Report ---
Fluoroscopy. Indication: Port placement Fluoroscopic assistance was provided for Dr. Rees during his port placement procedure. 30.4 seconds of fluoroscopy time was utilized. 2 spot films of the thorax were obtained. There is a port in place on the right where the tip of the catheter overlies the distal superior vena cava. Impression: Fluoroscopic assistance was provided for Dr. Rees. Dictated by: Dictated on workstation # [id number]
[2017-11-11] MEDS ORDERED: ACHD5005 PO (10:05)
--- NOTE | 2017-11-11 10:06 | Discharge Inst-Simple/Standard ---
Discharge Inst-Standard Discharge Medications New, Converted or Re-Newed RX: RX on Chart Patient Instructions/Follow Up Plan of Care/Instructions/FU: Please educate on J.P care. F/U next Activity as Tolerated: Yes Discharge Diet: No Restrictions KIKI ROWE MD November 11, 2017 10:06 am
[2017-11-11] MEDS ORDERED: morphine INJ 10 MG/ML 1ML (SYR OR VIAL) IVP PRN (10:30)
[2017-11-11] MEDS ORDERED: ONDANSETRON 4 MG/2 ML (SDV) Z0FRAN IVP PRN (10:30)
[2017-11-11] MEDS ORDERED: morphine INJ 4 MG/ML 1 ML (VIAL/SYRINGE) ONE (10:36)
[2017-11-11 11:20] VITALS: BP 150/76
[2017-11-11 11:50] VITALS: BP 156/79
--- NOTE | 2017-11-11 12:43 | Anesthesia-General Post-Op ---
General Patient Condition Mental Status/LOC: Same as Preop Cardiovascular: Satisfactory Nausea/Vomiting: Absent Respiratory: Satisfactory Pain: Controlled Complications: Absent Post Op Complications Complications None Follow Up Care/Instructions Patient Instructions None needed. Anesthesia/Patient Condition Patient Condition Currently the patient is in SDC and the patient is doing well at this time. In recovery, immediately after arrival, patient complained of chest pain on [address] Webber was notified and an EKG was obtained. After the EKG, when the patient was more awake, the patient states his pain was more in the left axilla instead of his chest. Denies SOB, chest pain currently, or other symptoms. VSS. No complications reported per nursing. STAN SANTOS CRNA November 11, 2017 12:43
[2017-11-11 12:50] VITALS: BP 149/76
[2017-11-11 13:15] VITALS: BP 149/76
--- NOTE | 2017-11-11 14:59 | Operative Report ---
Operative Report Date of Procedure/Surgery November 11, 2017 Surgeon (s) KIKI ROWE MD Regulatory Scientist (s): Freda Meadows (Med Student) Post-Operative Diagnosis Same Procedure Performed Fclnxh-i-Hxml placement Left axillary clearance Description of Procedure Anesthesia Type: General Estimated blood loss (mL): Minimal Specimen(s) collected/removed Level II left axillary contents Description of the Procedure Indication for the procedure: This gentleman underwent excision of a large melanoma involving his left upper extremity with skin grafting, combined with sentinel lymph node biopsy. Metastatic disease was found in the lymph nodes and subsequent PET scan is negative for other systemic disease. Therefore, after an adequate discussion with his oncologist, it is felt reasonable to complete axillary lymph node dissection on the ipsilateral side. To facilitate systemic therapy, placing an Uxgypr-s-Izez was also offered. Informed consent was obtained after reviewing the operative details and complications of bacteremia, malfunction of the catheter requiring replacement and wound infection. Description of the procedure: He was placed supine on the operating table and general anesthesia induced using a laryngeal mask airway. A gram of Ancef was administered intravenously as prophylaxis against wound infection. Sequential compression devices were placed around his legs, to minimize the risk of venous thrombosis. 1. Rgtmej-f-Ufyk placement: His neck and upper chest were prepared and draped in the usual sterile manner. Right internal jugular vein was localized using a 12 MHz ultrasound probe and a floppy guidewire introduced into the heart, and the fluoroscopy. A subcutaneous pocket was created over the infraclavicular fossa and the Daren catheter brought into the neck, in a retrograde fashion. It was then advanced into the heart, and the fluoroscopy, using the peel away sheath. The catheter was then pulled back to the superior vena cava under fluoroscopy and connected to the Gezeyi-d-Jpuc, and had been primed with heparinized saline. I was able to aspirate and flush the system without any difficulty. The port was then secured to the pectoralis tissue using 2-0 Prolene sutures. The incision was then closed using 3-0 Vicryl for the subcutaneous tissue and 4- 0 Vicryl for skin, in a subcuticular fashion. Pre-emptive analgesia was established using 0.5 percent Marcaine with epinephrine. 2. Left axillary lymph node clearance/dissection: A secondary incision was made along the previous scar and the axilla entered safely. Pectoralis muscle was retracted leading to the display of the axillary vein. By following its tributaries, the nerve to the latissimus dorsi muscle and the long thoracic nerve were identified and carefully protected. Axillary contents just deep to the axillary vein, constituting a level I dissection where removed and sent en bloc for histological examination. The apical lymph node was identified with a silk suture. Hemostasis was optimized using minimal use of cautery, ligated Harmonic Scalpel. The area was Irrigated with saline and a 15 Occitan Pieter-Pérez drain left in the cavity to promote postoperative drainage. It was secured using a silk suture. Incision was then closed using 3-0 Vicryl for the subcutaneous tissue and 4-0 Vicryl for skin, in a subcuticular fashion. Pre-emptive analgesia was established in a similar fashion. Findings of the Procedure See op report Allergies and Home Medications Allergies Coded Allergies: No Known Drug Allergies (Unverified , 11/09/17) Home Medications Amlodipine Besylate 10 Mg Tablet, 10 MG PO 1700, (Reported) Celecoxib 200 Mg Capsule, 200 MG PO DAILY, (Reported) Clonidine HCl 0.1 Mg Tablet, 0.1 MG PO BID, (Reported) Docusate Sodium 100 Mg Capsule, 200 MG PO DAILY, (Reported) TAKES 2 (100MG) CAPSULES Furosemide 20 Mg Tablet, 20 MG PO DAILY, (Reported) Hydrocodone Bit/Acetaminophen 1 Tab Tab, 1-2 TAB PO 4-6HR PRN for PAIN Prescribed by: KIKI ROWE on 11/11/17 1005 Lisinopril 20 Mg Tablet, 20 MG PO DAILY, (Reported) Nebivolol HCl 10 Mg Tab, 10 MG PO DAILY, (Reported) Polyethylene Glycol 3350 17 Gm Powd.pack, 17 GM PO DAILY, (Reported) Patient Home Medication List Home Medication List Reviewed: Yes KIKI ROWE MD November 11, 2017 2:59 pm
== END 2017-11-11 13:15 | disposition home or self-care (01) ==
LOC: CARD 06:43
PROVIDERS: ATTEND Surgery
DX: C43.62 Malignant melanoma of left upper limb, including shoulder (principal); C77.3 Secondary and unspecified malignant neoplasm of axilla and upper limb lymph nodes; I25.10 Atherosclerotic heart disease of native coronary artery without angina pectoris; I10 Essential (primary) hypertension; Z79.899 Other long term (current) drug therapy; Z79.82 Long term (current) use of aspirin; Z87.891 Personal history of nicotine dependence
CPT/HCPCS: 87081; 88307; 93005

== ENCOUNTER 2018-02-02 15:05 | Outpatient (RCR) | payer MEDICARE, OTHER ==
[2017-11-07 13:05] LABS: BASOPHILS % (AUTO) 0 % (0-10); EOSINOPHILS # (AUTO) 0.3 10^3/uL (0.0-0.3); EOSINOPHILS % (AUTO) 4 % (0-10); HEMATOCRIT 38 % (40-54); HEMOGLOBIN 12.9 G/DL (13.3-17.7); LYMPHOCYTES # (AUTO) 1.7 X 10^3 (1.0-4.0); LYMPHOCYTES % (AUTO) 25 % (12-44); MEAN CORPUSCULAR HEMOGLOBIN 30 PG (25-34); MEAN CORPUSCULAR HGB CONC 34 G/DL (32-36); MEAN CORPUSCULAR VOLUME 87 FL (80-99); MONOCYTES # (AUTO) 0.4 X 10^3 (0.0-1.0); MONOCYTES % (AUTO) 6 % (0-12); NEUTROPHILS # (AUTO) 4.4 X 10^3 (1.8-7.8); NEUTROPHILS % (AUTO) 65 % (42-75); PLATELET COUNT 242 10^3/uL (130-400); RED BLOOD COUNT 4.36 10^6/uL (4.35-5.85); RED CELL DISTRIBUTION WIDTH 13.4 % (10.0-14.5); WHITE BLOOD COUNT 6.9 10^3/uL (4.3-11.0)
[2017-11-07 13:29] LABS: ALANINE AMINOTRANSFERASE 15 U/L (0-55); ALBUMIN 4.1 GM/DL (3.2-4.5); ALKALINE PHOSPHATASE 77 U/L (40-136); BILIRUBIN,TOTAL 0.5 MG/DL (0.1-1.0); BUN/CREATININE RATIO 18; CALCIUM 9.1 MG/DL (8.5-10.1); CARBON DIOXIDE 27 MMOL/L (21-32); CHLORIDE 103 MMOL/L (98-107); CREATININE SERUM 0.76 MG/DL (0.60-1.30); GFR ESTIMATED > 60; GLUCOSE 116 MG/DL (70-105); MAGNESIUM 2.1 MG/DL (1.8-2.4); POTASSIUM 3.7 MMOL/L (3.6-5.0); SODIUM 138 MMOL/L (135-145); TOTAL PROTEIN 7.1 GM/DL (6.4-8.2)
[2017-11-23 14:42] LABS: BASOPHILS % (AUTO) 1 % (0-10); EOSINOPHILS # (AUTO) 0.3 10^3/uL (0.0-0.3); EOSINOPHILS % (AUTO) 5 % (0-10); HEMATOCRIT 36 % (40-54); HEMOGLOBIN 11.9 G/DL (13.3-17.7); LYMPHOCYTES # (AUTO) 1.6 X 10^3 (1.0-4.0); LYMPHOCYTES % (AUTO) 30 % (12-44); MEAN CORPUSCULAR HEMOGLOBIN 29 PG (25-34); MEAN CORPUSCULAR HGB CONC 33 G/DL (32-36); MEAN CORPUSCULAR VOLUME 86 FL (80-99); MEAN PLATELET VOLUME 9.3 FL (7.4-10.4); MONOCYTES # (AUTO) 0.3 X 10^3 (0.0-1.0); MONOCYTES % (AUTO) 6 % (0-12); NEUTROPHILS # (AUTO) 3.1 X 10^3 (1.8-7.8); NEUTROPHILS % (AUTO) 59 % (42-75); PLATELET COUNT 248 10^3/uL (130-400); RED BLOOD COUNT 4.12 10^6/uL (4.35-5.85); RED CELL DISTRIBUTION WIDTH 14.1 % (10.0-14.5); WHITE BLOOD COUNT 5.3 10^3/uL (4.3-11.0)
[2017-11-23 15:02] LABS: ALANINE AMINOTRANSFERASE 16 U/L (0-55); ALBUMIN 3.8 GM/DL (3.2-4.5); ALKALINE PHOSPHATASE 66 U/L (40-136); BILIRUBIN,TOTAL 0.5 MG/DL (0.1-1.0); BUN/CREATININE RATIO 21; CALCIUM 8.9 MG/DL (8.5-10.1); CARBON DIOXIDE 26 MMOL/L (21-32); CHLORIDE 106 MMOL/L (98-107); CREATININE SERUM 0.71 MG/DL (0.60-1.30); GFR ESTIMATED > 60; GLUCOSE 113 MG/DL (70-105); POTASSIUM 3.7 MMOL/L (3.6-5.0); SODIUM 140 MMOL/L (135-145); TOTAL PROTEIN 6.5 GM/DL (6.4-8.2)
[2017-12-08 14:44] LABS: BASOPHILS % (AUTO) 0 % (0-10); EOSINOPHILS # (AUTO) 0.1 10^3/uL (0.0-0.3); EOSINOPHILS % (AUTO) 2 % (0-10); HEMATOCRIT 38 % (40-54); HEMOGLOBIN 12.9 G/DL (13.3-17.7); LYMPHOCYTES # (AUTO) 1.3 X 10^3 (1.0-4.0); LYMPHOCYTES % (AUTO) 23 % (12-44); MEAN CORPUSCULAR HEMOGLOBIN 29 PG (25-34); MEAN CORPUSCULAR HGB CONC 34 G/DL (32-36); MEAN CORPUSCULAR VOLUME 85 FL (80-99); MEAN PLATELET VOLUME 9.9 FL (7.4-10.4); MONOCYTES # (AUTO) 0.4 X 10^3 (0.0-1.0); MONOCYTES % (AUTO) 7 % (0-12); NEUTROPHILS # (AUTO) 3.8 X 10^3 (1.8-7.8); NEUTROPHILS % (AUTO) 68 % (42-75); PLATELET COUNT 245 10^3/uL (130-400); RED BLOOD COUNT 4.41 10^6/uL (4.35-5.85); WHITE BLOOD COUNT 5.6 10^3/uL (4.3-11.0)
[2017-12-08 15:01] LABS: ALANINE AMINOTRANSFERASE 23 U/L (0-55); ALBUMIN 4.1 GM/DL (3.2-4.5); ALKALINE PHOSPHATASE 70 U/L (40-136); BILIRUBIN,TOTAL 0.6 MG/DL (0.1-1.0); BUN/CREATININE RATIO 19; CALCIUM 9.2 MG/DL (8.5-10.1); CARBON DIOXIDE 23 MMOL/L (21-32); CHLORIDE 106 MMOL/L (98-107); CREATININE SERUM 0.73 MG/DL (0.60-1.30); GFR ESTIMATED > 60; GLUCOSE 112 MG/DL (70-105); POTASSIUM 3.3 MMOL/L (3.6-5.0); SODIUM 140 MMOL/L (135-145); TOTAL PROTEIN 7.1 GM/DL (6.4-8.2)
[2017-12-22 13:28] LABS: BASOPHILS % (AUTO) 0 % (0-10); EOSINOPHILS # (AUTO) 0.2 10^3/uL (0.0-0.3); EOSINOPHILS % (AUTO) 4 % (0-10); HEMATOCRIT 35 % (40-54); HEMOGLOBIN 11.9 G/DL (13.3-17.7); LYMPHOCYTES # (AUTO) 1.6 X 10^3 (1.0-4.0); LYMPHOCYTES % (AUTO) 30 % (12-44); MEAN CORPUSCULAR HEMOGLOBIN 29 PG (25-34); MEAN CORPUSCULAR HGB CONC 34 G/DL (32-36); MEAN CORPUSCULAR VOLUME 87 FL (80-99); MEAN PLATELET VOLUME 9.8 FL (7.4-10.4); MONOCYTES # (AUTO) 0.4 X 10^3 (0.0-1.0); MONOCYTES % (AUTO) 8 % (0-12); NEUTROPHILS % (AUTO) 57 % (42-75); PLATELET COUNT 226 10^3/uL (130-400); RED BLOOD COUNT 4.09 10^6/uL (4.35-5.85); WHITE BLOOD COUNT 5.2 10^3/uL (4.3-11.0)
[2017-12-22 13:44] LABS: ALANINE AMINOTRANSFERASE 18 U/L (0-55); ALKALINE PHOSPHATASE 71 U/L (40-136); BILIRUBIN,TOTAL 0.4 MG/DL (0.1-1.0); BUN/CREATININE RATIO 19; CALCIUM 9.1 MG/DL (8.5-10.1); CARBON DIOXIDE 25 MMOL/L (21-32); CHLORIDE 106 MMOL/L (98-107); CREATININE SERUM 0.98 MG/DL (0.60-1.30); GFR ESTIMATED > 60; GLUCOSE 115 MG/DL (70-105); SODIUM 137 MMOL/L (135-145); TOTAL PROTEIN 6.8 GM/DL (6.4-8.2)
[2018-01-05 12:09] LABS: BASOPHILS % (AUTO) 0 % (0-10); EOSINOPHILS % (AUTO) 0 % (0-10); HEMATOCRIT 38 % (40-54); HEMOGLOBIN 12.6 G/DL (13.3-17.7); LYMPHOCYTES # (AUTO) 1.4 X 10^3 (1.0-4.0); LYMPHOCYTES % (AUTO) 25 % (12-44); MEAN CORPUSCULAR HEMOGLOBIN 29 PG (25-34); MEAN CORPUSCULAR HGB CONC 34 G/DL (32-36); MEAN CORPUSCULAR VOLUME 87 FL (80-99); MEAN PLATELET VOLUME 9.6 FL (7.4-10.4); MONOCYTES # (AUTO) 0.4 X 10^3 (0.0-1.0); MONOCYTES % (AUTO) 6 % (0-12); NEUTROPHILS # (AUTO) 3.9 X 10^3 (1.8-7.8); NEUTROPHILS % (AUTO) 68 % (42-75); PLATELET COUNT 265 10^3/uL (130-400); RED BLOOD COUNT 4.32 10^6/uL (4.35-5.85); RED CELL DISTRIBUTION WIDTH 14.1 % (10.0-14.5); WHITE BLOOD COUNT 5.8 10^3/uL (4.3-11.0)
[2018-01-05 12:25] LABS: BUN/CREATININE RATIO 23; CALCIUM 9.5 MG/DL (8.5-10.1); CARBON DIOXIDE 27 MMOL/L (21-32); CHLORIDE 106 MMOL/L (98-107); CREATININE SERUM 0.79 MG/DL (0.60-1.30); GFR ESTIMATED > 60; GLUCOSE 127 MG/DL (70-105); POTASSIUM 3.1 MMOL/L (3.6-5.0); SODIUM 141 MMOL/L (135-145)
[2018-01-19 14:08] LABS: BASOPHILS % (AUTO) 0 % (0-10); EOSINOPHILS % (AUTO) 1 % (0-10); HEMATOCRIT 38 % (40-54); HEMOGLOBIN 12.8 G/DL (13.3-17.7); LYMPHOCYTES # (AUTO) 1.4 X 10^3 (1.0-4.0); LYMPHOCYTES % (AUTO) 30 % (12-44); MEAN CORPUSCULAR HEMOGLOBIN 29 PG (25-34); MEAN CORPUSCULAR HGB CONC 34 G/DL (32-36); MEAN CORPUSCULAR VOLUME 87 FL (80-99); MEAN PLATELET VOLUME 9.8 FL (7.4-10.4); MONOCYTES # (AUTO) 0.3 X 10^3 (0.0-1.0); MONOCYTES % (AUTO) 7 % (0-12); NEUTROPHILS # (AUTO) 2.9 X 10^3 (1.8-7.8); NEUTROPHILS % (AUTO) 62 % (42-75); PLATELET COUNT 213 10^3/uL (130-400); RED BLOOD COUNT 4.37 10^6/uL (4.35-5.85); WHITE BLOOD COUNT 4.7 10^3/uL (4.3-11.0)
[2018-01-19 14:22] LABS: ALANINE AMINOTRANSFERASE 22 U/L (0-55); ALBUMIN 4.1 GM/DL (3.2-4.5); ALKALINE PHOSPHATASE 82 U/L (40-136); BILIRUBIN,TOTAL 0.6 MG/DL (0.1-1.0); BUN/CREATININE RATIO 23; CALCIUM 9.2 MG/DL (8.5-10.1); CARBON DIOXIDE 28 MMOL/L (21-32); CHLORIDE 105 MMOL/L (98-107); CREATININE SERUM 0.77 MG/DL (0.60-1.30); GFR ESTIMATED > 60; GLUCOSE 141 MG/DL (70-105); POTASSIUM 3.4 MMOL/L (3.6-5.0); SODIUM 140 MMOL/L (135-145); TOTAL PROTEIN 7.1 GM/DL (6.4-8.2)
[~2018-02-02] VITALS: Ht 175.3 cm; Wt 85.3 kg
[~2018-02-02 15:05] MED LIST changes: +NIVOLUMAB 200 MG, NIVOLUMAB 40 MG in NS (IVPB) CANCER CENTER 50 ML IV SCH; +NS IV 500 ML (CANCER CENTER) 500 ML IV SCH
[2018-02-02 15:19] LABS: BASOPHILS # (AUTO) 0.1 10^3/uL (0.0-0.1); BASOPHILS % (AUTO) 1 % (0-10); EOSINOPHILS # (AUTO) 0.4 10^3/uL (0.0-0.3); EOSINOPHILS % (AUTO) 7 % (0-10); HEMATOCRIT 38 % (40-54); HEMOGLOBIN 12.7 G/DL (13.3-17.7); LYMPHOCYTES % (AUTO) 34 % (12-44); MEAN CORPUSCULAR HEMOGLOBIN 29 PG (25-34); MEAN CORPUSCULAR HGB CONC 33 G/DL (32-36); MEAN CORPUSCULAR VOLUME 87 FL (80-99); MEAN PLATELET VOLUME 9.5 FL (7.4-10.4); MONOCYTES # (AUTO) 0.4 X 10^3 (0.0-1.0); MONOCYTES % (AUTO) 7 % (0-12); NEUTROPHILS # (AUTO) 2.9 X 10^3 (1.8-7.8); NEUTROPHILS % (AUTO) 51 % (42-75); PLATELET COUNT 237 10^3/uL (130-400); RED BLOOD COUNT 4.39 10^6/uL (4.35-5.85); RED CELL DISTRIBUTION WIDTH 14.2 % (10.0-14.5); WHITE BLOOD COUNT 5.7 10^3/uL (4.3-11.0)
[2018-02-02 15:44] LABS: BUN/CREATININE RATIO 23; CALCIUM 9.6 MG/DL (8.5-10.1); CARBON DIOXIDE 28 MMOL/L (21-32); CHLORIDE 103 MMOL/L (98-107); GFR ESTIMATED > 60; GLUCOSE 96 MG/DL (70-105); POTASSIUM 3.8 MMOL/L (3.6-5.0); SODIUM 140 MMOL/L (135-145)
== END 2018-02-05 | disposition home or self-care (01) ==
LOC: ONC 15:05
PROVIDERS: ATTEND Internal Medicine Hematology & Oncology
DX: Z51.11 Encounter for antineoplastic chemotherapy (principal); C43.62 Malignant melanoma of left upper limb, including shoulder; D47.2 Monoclonal gammopathy; I25.10 Atherosclerotic heart disease of native coronary artery without angina pectoris; I10 Essential (primary) hypertension; I49.5 Sick sinus syndrome; M19.91 Primary osteoarthritis, unspecified site; Z79.899 Other long term (current) drug therapy; Z79.82 Long term (current) use of aspirin; Z87.891 Personal history of nicotine dependence
CPT/HCPCS: 36415; 36591; 80048; 80053; 83735; 84443; 85025; 96413; 99213

== ENCOUNTER 2018-03-16 12:40 | Outpatient (RCR) | payer MEDICARE, OTHER ==
[2018-02-16 13:12] LABS: BASOPHILS % (AUTO) 1 % (0-10); EOSINOPHILS # (AUTO) 0.3 10^3/uL (0.0-0.3); EOSINOPHILS % (AUTO) 6 % (0-10); HEMATOCRIT 38 % (40-54); LYMPHOCYTES # (AUTO) 1.5 X 10^3 (1.0-4.0); LYMPHOCYTES % (AUTO) 28 % (12-44); MEAN CORPUSCULAR HEMOGLOBIN 29 PG (25-34); MEAN CORPUSCULAR HGB CONC 34 G/DL (32-36); MEAN CORPUSCULAR VOLUME 86 FL (80-99); MEAN PLATELET VOLUME 9.7 FL (7.4-10.4); MONOCYTES # (AUTO) 0.3 X 10^3 (0.0-1.0); MONOCYTES % (AUTO) 5 % (0-12); NEUTROPHILS # (AUTO) 3.2 X 10^3 (1.8-7.8); NEUTROPHILS % (AUTO) 61 % (42-75); PLATELET COUNT 220 10^3/uL (130-400); RED BLOOD COUNT 4.43 10^6/uL (4.35-5.85); RED CELL DISTRIBUTION WIDTH 13.6 % (10.0-14.5); WHITE BLOOD COUNT 5.4 10^3/uL (4.3-11.0)
[2018-02-16 13:44] LABS: ALANINE AMINOTRANSFERASE 25 U/L (0-55); ALBUMIN 4.2 GM/DL (3.2-4.5); ALKALINE PHOSPHATASE 66 U/L (40-136); BILIRUBIN,TOTAL 0.9 MG/DL (0.1-1.0); BUN/CREATININE RATIO 25; CALCIUM 9.4 MG/DL (8.5-10.1); CARBON DIOXIDE 28 MMOL/L (21-32); CHLORIDE 103 MMOL/L (98-107); CREATININE SERUM 0.77 MG/DL (0.60-1.30); GFR ESTIMATED > 60; GLUCOSE 120 MG/DL (70-105); POTASSIUM 3.4 MMOL/L (3.6-5.0); SODIUM 138 MMOL/L (135-145); TOTAL PROTEIN 7.1 GM/DL (6.4-8.2)
[2018-03-02 10:03] LABS: BASOPHILS % (AUTO) 0 % (0-10); EOSINOPHILS # (AUTO) 0.1 10^3/uL (0.0-0.3); EOSINOPHILS % (AUTO) 1 % (0-10); HEMATOCRIT 35 % (40-54); LYMPHOCYTES # (AUTO) 0.9 X 10^3 (1.0-4.0); LYMPHOCYTES % (AUTO) 9 % (12-44); MEAN CORPUSCULAR HEMOGLOBIN 30 PG (25-34); MEAN CORPUSCULAR HGB CONC 35 G/DL (32-36); MEAN CORPUSCULAR VOLUME 86 FL (80-99); MEAN PLATELET VOLUME 9.6 FL (7.4-10.4); MONOCYTES # (AUTO) 0.6 X 10^3 (0.0-1.0); MONOCYTES % (AUTO) 5 % (0-12); NEUTROPHILS # (AUTO) 8.5 X 10^3 (1.8-7.8); NEUTROPHILS % (AUTO) 84 % (42-75); PLATELET COUNT 178 10^3/uL (130-400); RED BLOOD COUNT 4.03 10^6/uL (4.35-5.85); RED CELL DISTRIBUTION WIDTH 13.7 % (10.0-14.5); WHITE BLOOD COUNT 10.1 10^3/uL (4.3-11.0)
[2018-03-02 10:22] LABS: BUN/CREATININE RATIO 23; CALCIUM 9.2 MG/DL (8.5-10.1); CARBON DIOXIDE 23 MMOL/L (21-32); CHLORIDE 104 MMOL/L (98-107); CREATININE SERUM 1.11 MG/DL (0.60-1.30); GFR ESTIMATED > 60; GLUCOSE 88 MG/DL (70-105); POTASSIUM 3.4 MMOL/L (3.6-5.0); SODIUM 136 MMOL/L (135-145)
[~2018-03-16] VITALS: Ht 175.3 cm; Wt 83.9 kg
[~2018-03-16 12:40] MED LIST changes: -AMLO10TA2 PO; +AMLO10TA6 PO
[2018-03-16 13:07] LABS: BASOPHILS % (AUTO) 0 % (0-10); EOSINOPHILS % (AUTO) 0 % (0-10); HEMATOCRIT 34 % (40-54); HEMOGLOBIN 11.3 G/DL (13.3-17.7); LYMPHOCYTES % (AUTO) 28 % (12-44); MEAN CORPUSCULAR HEMOGLOBIN 28 PG (25-34); MEAN CORPUSCULAR HGB CONC 33 G/DL (32-36); MEAN CORPUSCULAR VOLUME 86 FL (80-99); MEAN PLATELET VOLUME 9.3 FL (7.4-10.4); MONOCYTES # (AUTO) 0.4 X 10^3 (0.0-1.0); MONOCYTES % (AUTO) 12 % (0-12); NEUTROPHILS % (AUTO) 60 % (42-75); PLATELET COUNT 265 10^3/uL (130-400); RED BLOOD COUNT 3.97 10^6/uL (4.35-5.85); RED CELL DISTRIBUTION WIDTH 13.7 % (10.0-14.5); WHITE BLOOD COUNT 3.4 10^3/uL (4.3-11.0)
[2018-03-16 13:34] LABS: ALANINE AMINOTRANSFERASE 22 U/L (0-55); ALBUMIN 3.8 GM/DL (3.2-4.5); ALKALINE PHOSPHATASE 58 U/L (40-136); BILIRUBIN,TOTAL 0.7 MG/DL (0.1-1.0); BUN/CREATININE RATIO 19; CALCIUM 8.9 MG/DL (8.5-10.1); CARBON DIOXIDE 23 MMOL/L (21-32); CHLORIDE 103 MMOL/L (98-107); CREATININE SERUM 1.02 MG/DL (0.60-1.30); GFR ESTIMATED > 60; GLUCOSE 115 MG/DL (70-105); POTASSIUM 3.9 MMOL/L (3.6-5.0); SODIUM 135 MMOL/L (135-145); TOTAL PROTEIN 6.6 GM/DL (6.4-8.2)
[2018-03-16] MEDS ORDERED: NS IV 1000 ML (CANCER CTR) 1,000 ML ONE (13:34)
[2018-03-20] MEDS ORDERED: ONDA8TAB13 PO (10:38)
[2018-03-20] MEDS ORDERED: CETI-214 PO (10:38)
[2018-03-20] MEDS ORDERED: OMG1KC PO (10:38)
[2018-03-20] MEDS ORDERED: FURO40TA4 PO (10:38)
[2018-03-20] MEDS ORDERED: CELE-63 PO (10:39)
[2018-03-20] MEDS ORDERED: ASPI-983 PO (10:40)
[2018-03-20] MEDS ORDERED: FISH1CAP15 PO (10:49)
[2018-03-23] MEDS ORDERED: PRED5TAB PO (09:31)
[2018-04-04] MEDS ORDERED: NEBI5TAB8 PO (15:29)
[2018-04-04] MEDS ORDERED: FAMO20TA5 PO (15:29)
== END 2018-04-06 09:56 | disposition home or self-care (01) ==
LOC: ONC 12:40
PROVIDERS: ATTEND Internal Medicine Hematology & Oncology
DX: Z51.11 Encounter for antineoplastic chemotherapy (principal); C43.62 Malignant melanoma of left upper limb, including shoulder; D47.2 Monoclonal gammopathy; I25.10 Atherosclerotic heart disease of native coronary artery without angina pectoris; I10 Essential (primary) hypertension; I49.5 Sick sinus syndrome; M19.91 Primary osteoarthritis, unspecified site; Z79.899 Other long term (current) drug therapy; Z79.82 Long term (current) use of aspirin; Z87.891 Personal history of nicotine dependence
CPT/HCPCS: 36591; 80048; 80053; 84443; 85025; 96360; 96413

== ENCOUNTER 2018-03-18 19:14 | Inpatient (IN) | payer MEDICARE, OTHER ==
[~2018-03-18] VITALS: Ht 175.3 cm; Wt 85.3 kg
[~2018-03-18 19:14] MED LIST changes: -NIVOLUMAB 200 MG, NIVOLUMAB 40 MG in NS (IVPB) CANCER CENTER 50 ML IV SCH; -NS IV 500 ML (CANCER CENTER) 500 ML IV SCH
--- NOTE | 2018-03-18 21:09 | ED General ---
General Chief Complaint: Fever-Adult/Adol Stated Complaint: SHAKY,CONFUSED,LOW GRADE FEVER,B/P LOW Nursing Triage Note: NOT FEELING WELL SINCE TUESDAY. FELT BETTER TUESDAY, NOT FEELING WELL AGAIN TODAY. Nursing Sepsis Screen: No Definite Risk Source of Information: Patient, Family (Son and cfbwbkhv-ib-vfh) Exam Limitations: No Limitations History of Present Illness Date Seen by Provider: Mar 18, 2018 Time Seen by Provider: 20:57 Initial Comments Patient presents to ER by private conveyance with his son and fmrwfuwh-so-fqv chief complaint for the past couple days she's felt low is been treated since February 28 with Bactrim for kidney infection by his primary care doctor. He's had a fever today and felt chills yesterday. Fever MAXIMUM TEMPERATURE is 103 per family. He had Celebrex but no Tylenol or Motrin or aspirin. He is not having any nausea or abdominal pain and chest pain cough or shortness of breath. He has had some runny nose ears feeling full of fluid but no discharge. He's had a sore throat and sometimes some discomfort when he urinates. She had no one-sided weakness, facial symmetry or difficulty swallowing. No heart history. He says he been taking all his medications as prescribed. He does use Lasix for dependent edema. He does not note that he's had worsening edema lately. Denies orthopnea. Allergies and Home Medications Allergies Coded Allergies: No Known Drug Allergies (Unverified , 11/09/17) Home Medications Amlodipine Besylate 10 Mg Tablet, 10 MG PO 1700, (Reported) Celecoxib 200 Mg Capsule, 200 MG PO DAILY, (Reported) Clonidine HCl 0.1 Mg Tablet, 0.1 MG PO BID, (Reported) Docusate Sodium 100 Mg Capsule, 200 MG PO DAILY, (Reported) TAKES 2 (100MG) CAPSULES Furosemide 20 Mg Tablet, 20 MG PO DAILY, (Reported) Lisinopril 20 Mg Tablet, 20 MG PO DAILY, (Reported) Nebivolol HCl 10 Mg Tab, 10 MG PO DAILY, (Reported) Polyethylene Glycol 3350 17 Gm Powd.pack, 17 GM PO DAILY, (Reported) Patient Home Medication List Home Medication List Reviewed: Yes Review of Systems Review of Systems Constitutional: No chills EENTM: nose congestion, throat pain; No hearing loss, No ear pain, No eye pain , No hoarseness Respiratory: No cough, No phlegm, No short of breath, No wheezing Cardiovascular: No chest pain, No edema Gastrointestinal: No abdominal pain, No diarrhea, No dysphagia, No nausea Genitourinary: dysuria; No frequency, No hematuria, No hesitancy Musculoskeletal: No joint swelling, No muscle pain Skin: No dryness, No pruritus, No rash Past Ylcbpch-Bfryvn-Thgsxm Hx Patient Social History Alcohol Use: Denies Use Recreational Drug Use: No Smoking Status: Former Smoker Type Used: Cigarettes Former Smoker, Quit: May 04, 1977 Recent Foreign Travel: No Contact w/Someone Who Travel: No Recent Infectious Disease Expo: No Recent Hopitalizations: No Physical Abuse: No Sexual Abuse: No Immunizations Up To Date Tetanus Booster (TDap): Unknown Date of Pneumonia Vaccine: Apr 19, 2016 Date of Influenza Vaccine: Apr 20, 2017 Seasonal Allergies Seasonal Allergies: Yes Past Medical History Surgeries: Yes (inguinal hernia, LAMINECTOMY, rotor cuff, SKIN LESION OFF ELBOW) Prostatectomy Respiratory: No Cardiac: Yes Hypertension Neurological: No Reproductive Disorders: No Sexually Transmitted Disease: No HIV/AIDS: No Prostate Problems Gastrointestinal: Yes Chronic Constipation Musculoskeletal: Yes Degenerate Disk Disease, Arthritis Endocrine: No Cataract Loss of Vision: Denies Hearing Impairment: Denies Cancer: Yes Bladder, Prostate Did You Recieve Any Treatments: Yes What Type of Treatment Did You: Radiation, Surgical Intervention Psychosocial: No Integumentary: No Blood Disorders: No Adverse Reaction/Blood Tranf: No (N/A) Family Medical History No Pertinent Family Hx Physical Exam-Suspected Sepsis Physical Exam Vital Signs Vital Signs - First Documented 03/18/18 19:21 Temp 103.2 Pulse 68 Resp 16 B/P (MAP) 122/50 (74) Pulse Ox 95 Capillary Refill : Less Than 3 Seconds Blood Pressure Mean: 74 Height, Weight, BMI Height: 5'9.00" Weight: 188lbs. 0.0oz. 85.533032vp; 28.1 BMI Method:Stated General Appearance: No Apparent Distress, WD/WN Eyes: Bilateral Eye Normal Inspection, Bilateral Eye PERRL, Bilateral Eye EOMI HEENT: PERRL/EOMI, TMs Normal, Normal ENT Inspection, Pharynx Normal; No Moist Mucous Membranes (Dry) Neck: Full Range of Motion, Normal Inspection, Non Tender, Supple Respiratory: Chest Non Tender, Lungs Clear, Normal Breath Sounds, No Accessory Muscle Use, No Respiratory Distress Cardiovascular: Regular Rate, Rhythm, No JVD, Normal Peripheral Pulses, Other ( 1+ bilateral lower ankle edema) Gastrointestinal: Normal Bowel Sounds, Soft, Tenderness (Mild tenderness in the suprapubic region.) Extremity: Normal Capillary Refill, Non Tender, No Calf Tenderness, Pedal Edema (1+ bilateral ankle) Neurologic/Psychiatric: Alert, Oriented x3 Skin: normal color, warm/dry Focused Exam Lactate Level 03/18/18 21:20: Lactic Acid Level 1.67 Lactic Acid Level Laboratory Tests Test 03/18/18 21:20 Lactic Acid Level 1.67 MMOL/L (0.50-2.00) Progress/Results/Core Measures Suspected Sepsis Recent Fever Within 48 Hours: Yes Infection Criteria Present: Suspected New Infection New/Unexplained Altered Menta: No Sepsis Screen: No Definite Risk SIRS Temperature:103.2 Pulse: 68 Respiratory Rate: 16 Laboratory Tests 03/18/18 21:20: White Blood Count 5.5 Blood Pressure 122 /50 Mean: 74 03/18/18 21:20: Lactic Acid Level 1.67 Laboratory Tests 03/18/18 21:20: Creatinine 1.30, INR Comment 1.1, Platelet Count 272, Total Bilirubin 0.6 Results/Orders Lab Results Laboratory Tests Test 03/18/18 21:20 03/18/18 23:10 Range/Units White Blood Count 5.5 4.3-11.0 10^3/uL Red Blood Count 4.16 L 4.35-5.85 10^6/uL Hemoglobin 12.0 L 13.3-17.7 G/DL Hematocrit 35 L 40-54 % Mean Corpuscular Volume 85 80-99 FL Mean Corpuscular Hemoglobin 29 25-34 PG Mean Corpuscular Hemoglobin Concent 34 32-36 G/DL Red Cell Distribution Width 13.5 10.0-14.5 % Platelet Count 272 130-400 10^3/uL Mean Platelet Volume 9.4 7.4-10.4 FL Neutrophils (%) (Auto) 87 H 42-75 % Lymphocytes (%) (Auto) 9 L 12-44 % Monocytes (%) (Auto) 4 0-12 % Eosinophils (%) (Auto) 0 0-10 % Basophils (%) (Auto) 0 0-10 % Neutrophils # (Auto) 4.8 1.8-7.8 X 10^3 Lymphocytes # (Auto) 0.5 L 1.0-4.0 X 10^3 Monocytes # (Auto) 0.2 0.0-1.0 X 10^3 Eosinophils # (Auto) 0.0 0.0-0.3 10^3/uL Basophils # (Auto) 0.0 0.0-0.1 10^3/uL Prothrombin Time 14.3 12.2-14.7 SEC INR Comment 1.1 0.8-1.4 Activated Partial Thromboplast Time 27 24-35 SEC Sodium Level 135 135-145 MMOL/L Potassium Level 3.9 3.6-5.0 MMOL/L Chloride Level 100 98-107 MMOL/L Carbon Dioxide Level 23 21-32 MMOL/L Anion Gap 12 5-14 MMOL/L Blood Urea Nitrogen 21 H 7-18 MG/DL Creatinine 1.30 0.60-1.30 MG/DL Estimat Glomerular Filtration Rate 54 BUN/Creatinine Ratio 16 Glucose Level 175 H 70-105 MG/DL Lactic Acid Level 1.67 0.50-2.00 MMOL/L Calcium Level 9.2 8.5-10.1 MG/DL Corrected Calcium 9.0 8.5-10.1 MG/DL Total Bilirubin 0.6 0.1-1.0 MG/DL Aspartate Amino Transf (AST/SGOT) 24 5-34 U/L Alanine Aminotransferase (ALT/SGPT) 24 0-55 U/L Alkaline Phosphatase 68 40-136 U/L Total Protein 7.5 6.4-8.2 GM/DL Albumin 4.2 3.2-4.5 GM/DL Group A Streptococcus Screen NEGATIVE NEGATIVE Urine Color YELLOW Urine Clarity CLEAR Urine pH 5 5-9 Urine Specific [place] 1.020 1.016-1.022 Urine Protein 1+ H NEGATIVE Urine Glucose (UA) NEGATIVE NEGATIVE Urine Ketones NEGATIVE NEGATIVE Urine Nitrite NEGATIVE NEGATIVE Urine Bilirubin NEGATIVE NEGATIVE Urine Urobilinogen NORMAL NORMAL MG/DL Urine Leukocyte Esterase 1+ H NEGATIVE Urine RBC (Auto) 4+ H NEGATIVE Urine RBC 50-100 H /HPF Urine WBC 2-5 /HPF Urine Squamous Epithelial Cells 0-2 /HPF Urine Crystals NONE /LPF Urine Bacteria MODERATE H /HPF Urine Casts PRESENT /LPF Urine Hyaline Casts 2-5 H /LPF Urine Mucus NEGATIVE /LPF Urine Culture Indicated NO My Orders Orders - BLANCA,HARISH J Cbc With Automated Diff (03/18/18 21:01) Comprehensive Metabolic Panel (03/18/18 21:) Blood Culture (03/18/18 21:) Sputum Culture (03/18/18 21:) Urinalysis (03/18/18 21:) Urine Culture (03/18/18 21:) Protime With Inr (03/18/18 21:) Partial Thromboplastin Time (03/18/18 21:) Chest 1 View, Ap/Pa Only (03/18/18 21:) Acetaminophen Tablet (Tylenol Tablet) (03/18/18 21:15) Saline Lock/Iv-Start (03/18/18 21:) Saline Lock/Iv-Start (03/18/18 21:) Vital Signs Adult Sepsis Patie Q15M (03/18/18 21:) O2 (03/18/18 21:) Remove Rings In Anticipation O (03/18/18 21:) Lactic Acid Analyzer (03/18/18 21:) Ns Iv 1000 Ml (Sodium Chloride 0.9%) (03/18/18 21:01) Ceftriaxone For Iv Use (Rocephin For I (03/18/18 21:15) Rapid Strep A Screen (03/18/18 21:) Medications Given in ED Current Medications Medications Dose Ordered Sig/Cliff Route Start Time Stop Time Status Last Admin Dose Admin Acetaminophen 1,000 mg ONCE PRN PO 03/18/18 21:15 03/18/18 21:15 DC 03/18/18 21:11 1,000 MG Ceftriaxone Sodium 1000 mg/ Sodium Chloride 60 ml @ 100 mls/hr ONCE ONCE IV 03/18/18 21:15 03/18/18 21:50 DC 03/18/18 21:32 100 MLS/HR Vital Signs/I&O 03/18/18 03/18/18 19:21 21:11 Temp 103.2 99.6 Pulse 68 Resp 16 B/P (MAP) 122/50 (74) Pulse Ox 95 Capillary Refill : Less Than 3 Seconds Blood Pressure Mean: 74 Progress Note : Time: 21:08 Progress Note Septic workup and a 20 mL/kg bolus of 1700 cc would be achieved with 2 L. His blood pressure is borderline around 100 systolic 210 systolic with one reading that was 89 but I think that that was erroneous as it was not immediately repeatable. His mentation is slow but not sure he is at baseline however he is independent of cares at home. Diagnostic Imaging Diagonstic Imaging: Xray Plain Films/CT/US/NM/MRI: chest (1v) Comments NAME: [facility] REC#: [id number] PHYSICIAN: HARISH RIOS MD CC: SURYA ZAMARRIPA; HARISH RIOS Page 1 of 1 RADIOLOGY REPORT VIA [place], [place] CC: SURYA ZAMARRIPA; HARISH RIOS Page 1 of 1 RADIOLOGY REPORT NAME: [facility] REC#: [id number] PT STATUS: REG ER : 1940 PHYSICIAN: HARISH RIOS MD ADMIT DATE: 03/18/18/ER Signed Date of Exam: 03/18/18 CHEST 1 VIEW, AP/PA ONLY INDICATION: Fevers and chills. EXAMINATION: Single view of the chest was obtained. FINDINGS: There is perihilar infiltrate on the right. Given the history, suspicious for pneumonia. The left lung is clear. There is no effusion or pneumothorax. IMPRESSION: Mild right medial lung perihilar pulmonary opacity and given the history is suspicious for a focus of pneumonia. No other potential acute finding, otherwise negative. Dictated by: Dictated on workstation # [id number] Dict: [id number]/18/[id number] Trans: 03/18/182213 Interpreted by: SURYA ZAMARRIPA Electronically signed by: SURYA ZAMARRIPA 03/18/182213 Reviewed: Reviewed by Me Departure Communication (Admissions) Time/Spoke to Admitting Phy: 23:59 Discussed the case lab imaging findings with Dr. Medeiros and she says she would follow-up with the patient in the morning. Impression Primary Impression: Pneumonia Qualified Codes: J18.1 - Lobar pneumonia, unspecified organism Additional Impression: Hematuria Qualified Codes: R31.9 - Hematuria, unspecified Disposition: ADMITTED INPATIENT Condition: Stable Admissions Decision to Admit Reason: Admit from ER (General) Decision to Admit/Date: Mar 19, 2018 Time/Decision to Admit Time: 00:01 Departure-Patient Inst. Referrals: RADHA BERNAL MD (PCP/Family) Primary Care Physician Copy Copies To 1: RADHA BERNAL MD, TITUS J Mar 18, 2018 21:09
[2018-03-18] MEDS: NS IV 1000 ML 1,000 ML IV SCH ×2 (21:11→22:20)
[2018-03-18] MEDS ORDERED: cefTRIAXone FOR IV USE 1,000 MG in NS (IVPB) 50 ML IV ONE (21:15)
[2018-03-18] MEDS ORDERED: ACETAMINOPHEN 500 MG TAB (TYLENOL) PO PRN (21:15)
--- NOTE | 2018-03-18 21:36 | Diagnostic Imaging Report ---
INDICATION: Fevers and chills. EXAMINATION: Single view of the chest was obtained. FINDINGS: There is perihilar infiltrate on the right. Given the history, suspicious for pneumonia. The left lung is clear. There is no effusion or pneumothorax. IMPRESSION: Mild right medial lung perihilar pulmonary opacity and given the history is suspicious for a focus of pneumonia. No other potential acute finding, otherwise negative. Dictated by: Dictated on workstation # [id number]
[2018-03-18 21:38] LABS: BASOPHILS % (AUTO) 0 % (0-10); EOSINOPHILS % (AUTO) 0 % (0-10); HEMATOCRIT 35 % (40-54); LYMPHOCYTES # (AUTO) 0.5 X 10^3 (1.0-4.0); LYMPHOCYTES % (AUTO) 9 % (12-44); MEAN CORPUSCULAR HEMOGLOBIN 29 PG (25-34); MEAN CORPUSCULAR HGB CONC 34 G/DL (32-36); MEAN CORPUSCULAR VOLUME 85 FL (80-99); MEAN PLATELET VOLUME 9.4 FL (7.4-10.4); MONOCYTES # (AUTO) 0.2 X 10^3 (0.0-1.0); MONOCYTES % (AUTO) 4 % (0-12); NEUTROPHILS # (AUTO) 4.8 X 10^3 (1.8-7.8); NEUTROPHILS % (AUTO) 87 % (42-75); PLATELET COUNT 272 10^3/uL (130-400); RED BLOOD COUNT 4.16 10^6/uL (4.35-5.85); RED CELL DISTRIBUTION WIDTH 13.5 % (10.0-14.5); WHITE BLOOD COUNT 5.5 10^3/uL (4.3-11.0)
[2018-03-18 21:50] LABS: INR 1.1 (0.8-1.4); PROTHROMBIN TIME PATIENT 14.3 SEC (12.2-14.7)
[2018-03-18 21:58] LABS: ALBUMIN 4.2 GM/DL (3.2-4.5); BILIRUBIN,TOTAL 0.6 MG/DL (0.1-1.0); CALCIUM 9.2 MG/DL (8.5-10.1); CREATININE SERUM 1.3 MG/DL (0.60-1.30); TOTAL PROTEIN 7.5 GM/DL (6.4-8.2)
[2018-03-18 22:10] LABS: POTASSIUM 3.9 MMOL/L (3.6-5.0)
[2018-03-18 23:31] LABS: BILIRUBIN,URINE NEGATIVE (NEGATIVE); CLARITY,URINE CLEAR; COLOR,URINE YELLOW; GLUCOSE, URINE (UA) NEGATIVE (NEGATIVE); KETONES,URINE NEGATIVE (NEGATIVE); LEUKOCYTE ESTERASE ,URINE 1+ (NEGATIVE); NITRITE,URINE NEGATIVE (NEGATIVE); PH,URINE 5 (5-9); PROTEIN,URINE 1+ (NEGATIVE); UROBILINOGEN,URINE NORMAL (NORMAL)
[2018-03-18 23:43] LABS: BACTERIA,URINE MODERATE /HPF; RBC,URINE 50-100 /HPF; SQUAMOUS EPITHELIAL CELL,UR 0-2 /HPF
[2018-03-19] VITALS (7 sets, daily range): BP systolic 100–157; BP diastolic 49–68
--- OUTSIDE RECORDS SUMMARY | 2018-03-19 00:20 | XMS REPORT | Continuity of Care Document ---
Author Author [facility] Organization [facility] Address Unknown Phone Unavailable Allergies Active Description Code Type Severity Reaction Onset Reported/Identified Relationship to Patient Clinical Status Yes NKANo Known Allergies NKA Miscellaneous Allergy Mild N/A 03/12/2006 Yes No Known Drug Allergies [id number] Drug Allergy Unknown N/A 11/09/2017 Medications There is no data. 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, I 06/02/1649 AURE JONES MD, Ot 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 GAMMOPATHY 06/02/1649 AURE JONES MD Ot I10 ESSENTIAL (PRIMARY) HYPERTENSION 06/02/1649 AURE JONES MD Ot I25.10 ATHSCL HEART DISEASE OF [place] CORONARY 06/02/1649 AURE JONES MD Ot I49.5 SICK SINUS SYNDROME 06/02/1649 AURE JONES MD Ot M19.91 PRIMARY OSTEOARTHRITIS, UNSPECIFIED SITE 06/02/1649 AURE JONES MD Ot Z79.82 SENIOR LIVING (CURRENT) USE OF ASPIRIN 06/02/1649 AURE JONES MD Ot Z79.899 OTHER SENIOR LIVING (CURRENT) DRUG THERAPY 06/02/1649 AURE JONES MD Ot Z87.891 PERSONAL HISTORY OF NICOTINE DEPENDENCE 12/16/2009 Ot 276.8 12/16/2009 Ot 879.2 12/16/2009 Ot 883.0 12/16/2009 Ot E000.8 12/16/2009 Ot E030 12/16/2009 Ot E849.0 12/16/2009 Ot E919.3 12/16/2009 Ot V06.1 08/26/2010 Ot 564.00 UNSPEC CONSTIPATION 08/26/2010 Ot 787.99 OTHER GI SYSTEM SYMPTOMS 07/07/2011 Ot 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 10/18/2011 Ot 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 10/18/2011 Ot 401.9 HYPERTENSION NOS 10/18/2011 Ot 716.90 ARTHROPATHY NOS-UNSPEC 10/18/2011 Ot 722.90 DISC DIS NEC /NOS-UNSPEC 10/18/2011 Ot V58.69 OTH MED,LT, CURRENT USE 01/17/2012 Ot 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 01/17/2012 Ot 401.9 HYPERTENSION NOS 01/17/2012 Ot 716.90 ARTHROPATHY NOS-UNSPEC 01/17/2012 Ot 722.90 DISC DIS NEC /NOS-UNSPEC 01/17/2012 Ot V58.69 OTH MED,LT, CURRENT USE 04/18/2012 Ot 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 04/18/2012 Ot 401.9 HYPERTENSION NOS 04/18/2012 Ot 716.90 ARTHROPATHY NOS-UNSPEC 04/18/2012 Ot 722.90 DISC DIS NEC /NOS-UNSPEC 04/18/2012 Ot V58.69 OTH MED,LT, CURRENT USE 07/13/2012 Ot 401.9 HYPERTENSION NOS 07/13/2012 Ot 780.2 SYNCOPE AND COLLAPSE 07/13/2012 Ot V58.69 OTH MED,LT, CURRENT USE 04/10/2013 JOSUE JIMENEZ, KATELYNN Christopher Ot 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 04/10/2013 KATELYNN SALAS MD Ot 401.9 HYPERTENSION NOS 04/10/2013 KATELYNN SALAS MD Ot 716.90 ARTHROPATHY NOS-UNSPEC 04/10/2013 KATELYNN SALAS MD Ot 722.90 DISC DIS NEC/NOS-UNSPEC 04/10/2013 KATELYNN SALAS MD Ot V58.69 OTH MED,LT,CURRENT USE 09/30/2013 KATELYNN SALAS MD Ot 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 09/30/2013 KATELYNN SALAS MD Ot 401.9 HYPERTENSION NOS 09/30/2013 KATELYNN SALAS MD Ot 716.90 ARTHROPATHY NOS-UNSPEC 09/30/2013 KATELYNN SALAS MD Ot 722.90 DISC DIS NEC/NOS-UNSPEC 09/30/2013 KATELYNN SALAS MD Ot V58.69 OTH MED,LT,CURRENT USE 03/24/2014 KATELYNN SALAS MD Ot 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 03/24/2014 KATELYNN SALAS MD Ot 401.9 HYPERTENSION NOS 03/24/2014 KATELYNN SALAS MD Ot 716.90 ARTHROPATHY NOS-UNSPEC 03/24/2014 JOSUE JIMENEZ, KATELYNN Christopher Ot 722.90 DISC DIS NEC/NOS-UNSPEC 03/24/2014 JOSUE JIMENEZ, KATELYNN Christopher Ot V58.69 OT MED,LT,CURRENT USE 07/24/2014 JOSUE JIMENEZ, KATELYNN Christopher Ot 273.1 07/24/2014 JOSUE JIMENEZ, KATELYNN Christopher Ot 401.9 07/24/2014 JOSUE JIMENEZ, KATELYNN Christopher Ot 716.90 07/24/2014 JOSUE JIMENEZ, KATELYNN Christopher Ot 722.90 07/24/2014 JOSUE JIMENEZ, KATELYNN Christopher Ot V58.69 07/24/2014 JOSUE JIMENEZ, KATELYNN Christopher Ot 273.1 07/24/2014 JOSUE JIMENEZ, KATELYNN Christopher Ot 401.9 07/24/2014 JOSUE JIMENEZ, KATELYNN Christopher Ot 716.90 07/24/2014 JOSUE JIMENEZ, KATELYNN Christopher Ot 722.90 07/24/2014 JOSUE JIMENEZ, KATELYNN Christopher Ot V58.69 07/24/2014 JOSUE JIMENEZ, KATELYNN Christopher Ot 273.1 07/24/2014 JOSUE JIMENEZ, KATELYNN Christopher Ot 401.9 07/24/2014 JOSUE JIMENEZ, KATELYNN Christopher Ot 716.90 07/24/2014 JOSUE JIMENEZ, KATELYNN Christopher Ot 722.90 07/24/2014 JOSUE JIMENEZ, KATELYNN Christopher Ot V58.69 07/26/2014 JOSUE JIMENEZ, KATELYNN Christopher Ot 273.1 07/26/2014 JOSUE JIMENEZ, KATELYNN Christopher Ot 401.9 07/26/2014 JOSUE JIMENEZ, KATELYNN Christopher Ot 716.90 07/26/2014 JOSUE JIMENEZ, KATELYNN Christopher Ot 722.90 07/26/2014 JOSUE JIMENEZ, KATELYNN Christopher Ot V58.69 08/28/2014 JOSUE JIMENEZ, KATELYNN Christopher Ot 273.1 08/28/2014 JOSUE JIMENEZ, KATELYNN Christopher Ot 401.9 08/28/2014 JOSUE JIMENEZ, KATELYNN Christopher Ot 716.90 08/28/2014 JOSUE JIMENEZ, KATELYNN Christopher Ot 722.90 08/28/2014 JOSUE JIMENEZ, KATELYNN Christopher Ot V58.69 10/02/2014 JOSUE JIMENEZ, KATELYNN Christopher Ot 273.1 10/02/2014 JOSUE JIMENEZ, KATELYNN Christopher Ot 401.9 10/02/2014 JOSUE JIMENEZ, KATELYNN Christopher Ot 716.90 10/02/2014 JOSUE JIMENEZ, KATELYNN Christopher Ot 722.90 10/02/2014 JOSUE JIMENEZ, KATELYNN Christopher Ot V58.69 10/22/2014 JOSUE JIMENEZ, KATELYNN Christopher Ot 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 10/22/2014 JOSUE JIMENEZ, KATELYNN Christopher Ot 401.9 HYPERTENSION NOS 10/22/2014 JOSUE JIMENEZ, KATELYNN Christopher Ot 716.90 ARTHROPATHY NOS-UNSPEC 10/22/2014 JOSUE JIMENEZ, KATELYNN Christopher Ot 722.90 DISC DIS NEC/NOS-UNSPEC 10/22/2014 JOSUE JIMENEZ, KATELYNN Christopher Ot V58.69 OTH MED,LT,CURRENT USE 04/09/2015 Ot 721.2 04/09/2015 Ot 721.3 04/09/2015 Ot 401.1 04/09/2015 Ot 356.9 04/09/2015 Ot 401.9 04/09/2015 Ot 716.90 04/09/2015 Ot 721.2 04/09/2015 Ot 724.01 04/09/2015 Ot 790.99 04/09/2015 Ot V58.69 04/09/2015 Ot 268.9 04/09/2015 Ot 255.10 04/09/2015 Ot 721.3 04/09/2015 Ot V45.4 04/09/2015 Ot V58.78 04/09/2015 JOSUE JIMENEZ, KATELYNN Christopher Ot 273.1 04/09/2015 JOSUE JIMENEZ, KATELYNN Christopher Ot 401.9 04/09/2015 JOSUE JIMENEZ, KATELYNN Ashwin Ot 716.90 04/09/2015 JOSUE JIMENEZ, KATELYNN Christopher Ot 722.90 04/09/2015 JOSUE JIMENEZ, KATELYNN Christopher Ot V58.69 05/23/2015 JOSUE JIMENEZ, KATELYNN Ashwin Ot 273.1 05/23/2015 JOSUE JIMENEZ, KATELYNN Christopher Ot 401.9 05/23/2015 OJSUE JIMENEZ, KATELYNN Christopher Ot 716.90 05/23/2015 JOSUE JIMENEZ, KATELYNN Christopher Ot 722.90 05/23/2015 JOSUE JIMENEZ, KATELYNN Christopher Ot V58.69 06/11/2015 JOSUE JIMENEZ, KATELYNN Christopher Ot D47.2 06/11/2015 JOSUE JIMENEZ, KATELYNN Christopher Ot I10 06/11/2015 JOSUE JIMENEZ, KATELYNN Christopher Ot M12.9 06/11/2015 JOSUE JIMENEZ, KATELYNN Christopher Ot M51.9 06/11/2015 JOSUE JIMENEZ, KATELYNN Christopher Ot Z79.899 06/19/2015 JOSUE JIMENEZ, KATELYNN Christopher Ot D47.2 06/19/2015 JOSUE JIMENEZ, KATELYNN Christopher Ot I10 06/19/2015 JOSUE JIMENEZ, KATEYLNN Christopher Ot M12.9 06/19/2015 JOSUE JIMENEZ, KATELYNN Christopher Ot M51.9 06/19/2015 JOSUE JIMENEZ, KATELYNN hCristopher Ot Z79.899 07/08/2015 JOSUE JIMENEZ, KATELYNN Christopher Ot 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 GAMMOPATHY 07/08/2015 JOSUE JIMENEZ, KATELYNN Christopher Ot I10 ESSENTIAL (PRIMARY) HYPERTENSION 07/08/2015 JOSUE JIMENEZ, KATELYNN Christopher Ot M12.9 ARTHROPATHY, UNSPECIFIED 07/08/2015 JOSUE JIMENEZ, KATELYNN Christopher Ot M51.9 UNSP THORACIC, THORACOLUM AND LUMBOSACR 07/08/2015 JOSUE JIMENEZ, KATELYNN Christopher Ot 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 09/24/2015 JOSUE JIMENEZ, KATELYNN Christopher Ot D47.2 09/24/2015 JOSUE JIMENEZ, KATELYNN Christopher Ot I10 09/24/2015 JOSUE JIMENEZ, KATELYNN Christopher Ot M12.9 09/24/2015 JOSUE JIMENEZ, KATELYNN Christopher Ot M51.9 09/24/2015 JOSUE JIMENEZ, KATELYNN Christopher Ot Z79.899 09/25/2015 JOSUE JIMENEZ, KATELYNN Christopher Ot D47.2 09/25/2015 JOSUE JIMENEZ, KATELYNN Christopher Ot I10 09/25/2015 JOSUE JIMENEZ, KATELYNN Christopher Ot M12.9 09/25/2015 JOSUE JIMENEZ, KATELYNN Christopher Ot M51.9 09/25/2015 JOSUE JIMENEZ, KATELYNN Christopher Ot Z79.899 10/16/2015 Ot 721.2 10/16/2015 Ot 721.3 10/16/2015 Ot 401.1 10/16/2015 Ot 356.9 10/16/2015 Ot 401.9 10/16/2015 Ot 716.90 10/16/2015 Ot 721.2 10/16/2015 Ot 724.01 10/16/2015 Ot 790.99 10/16/2015 Ot V58.69 10/16/2015 Ot 268.9 10/16/2015 Ot 255.10 10/16/2015 Ot 721.3 10/16/2015 Ot V45.4 10/16/2015 Ot V58.78 10/16/2015 JOSUE JIMENEZ, KATELYNN Christopher Ot D47.2 10/16/2015 JOSUE JIMENEZ, KATELYNN Christopher Ot I10 10/16/2015 JOSUE JIMENEZ, KATELYNN Christopher Ot M12.9 10/16/2015 JOSUE JIMENEZ, KATELYNN Christopher Ot M51.9 10/16/2015 JOSUE JIMENEZ, KATELYNN Christopher Ot Z79.899 10/16/2015 JYOTHI NEWELL MD, Ot K40.90 UNIL INGUINAL HERNIA, W/O OBST OR GANGR, 10/17/2015 JYOTHI NEWELL MD, Ot K40.90 UNIL INGUINAL HERNIA, W/O OBST OR GANGR, 10/21/2015 JYOTHI NEWELL MD, Ot E87.6 HYPOKALEMIA 10/21/2015 JYOTHI NEWELL MD Ot G89.18 OTHER ACUTE POSTPROCEDURAL PAIN 10/21/2015 JYOTHI NEWELL MD Ot I10 ESSENTIAL (PRIMARY) HYPERTENSION 10/21/2015 JYOTHI NEWELL MD, Ot J18.9 PNEUMONIA, UNSPECIFIED ORGANISM 10/21/2015 JYOTHI NEWELL MD, Ot J95.89 OTH POSTPROC COMPLICATIONS AND DISORDERS 10/21/2015 JYOTHI NEWELL MD, Ot J98.11 ATELECTASIS 10/21/2015 JYOTHI NEWELL MD, Ot K56.69 OTHER INTESTINAL OBSTRUCTION 10/21/2015 JYOTHI NEWELL MD, Ot 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 10/21/2015 JYOTHI NEWELL MD, Ot N48.89 OTHER SPECIFIED DISORDERS OF PENIS 10/21/2015 JYOTHI NEWELL MD Ot N50.8 OTHER SPECIFIED DISORDERS OF MALE GENITA 10/21/2015 JYOTHI NEWELL MD Ot Z87.891 PERSONAL HISTORY OF NICOTINE DEPENDENCE 10/21/2015 JYOTHI NEWELL MD, Ot 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 ORGAN( 10/21/2015 Ot 721.2 THORACIC SPONDYLOSIS 10/21/2015 Ot 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 10/21/2015 Ot 401.1 BENIGN HYPERTENSION 10/21/2015 Ot 356.9 IDIO PERIPH NEURPTHY NOS 10/21/2015 Ot 401.9 HYPERTENSION NOS 10/21/2015 Ot 716.90 ARTHROPATHY NOS-UNSPEC 10/21/2015 Ot 721.2 THORACIC SPONDYLOSIS 10/21/2015 Ot 724.01 SPINAL STENOSIS-THORACIC 10/21/2015 Ot 790.99 BLOOD EXAM - OT NONSPECIFIC FINDINGS 10/21/2015 Ot V58.69 OTH MED,LT, CURRENT USE 10/21/2015 Ot 268.9 VITAMIN D DEFICIENCY NOS 10/21/2015 Ot 255.10 HYPERALDOSTERONISM, UNSPECIFIED 10/21/2015 Ot 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 10/21/2015 Ot V45.4 ARTHRODESIS STATUS 10/21/2015 Ot V58.78 AFTERCARE POST SURGERY MUSCULOSKELETAL S 10/21/2015 JOSUE JIMENEZ, KATELYNN Ashwin Ot 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 GAMMOPATHY 10/21/2015 KATELYNN SALAS MD Ot I10 ESSENTIAL (PRIMARY) HYPERTENSION 10/21/2015 KATELYNN SALAS MD Ot M12.9 ARTHROPATHY, UNSPECIFIED 10/21/2015 JOSUE JIMENEZ KATELYNN Ashwin Ot M51.9 UNSP THORACIC, THORACOLUM AND LUMBOSACR 10/21/2015 JOSUE JIMENEZ KATELYNN Ashwin Ot 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 10/22/2015 DANNA LAWS MD Ot E87.6 HYPOKALEMIA 10/22/2015 DANNA LAWS MD Ot I10 ESSENTIAL (PRIMARY) HYPERTENSION 10/22/2015 DANNA LAWS MD Ot J18.9 PNEUMONIA, UNSPECIFIED ORGANISM 10/22/2015 DANNA LAWS MD Ot 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 RADICULOPA 10/22/2015 DANNA LAWS MD Ot R33.9 RETENTION OF URINE, UNSPECIFIED 10/22/2015 DANNA LAWS MD Ot Z48.89 ENCOUNTER FOR OTHER SPECIFIED SURGICAL A 10/22/2015 DANNA LAWS MD Ot Z87.891 PERSONAL HISTORY OF NICOTINE DEPENDENCE 10/22/2015 DANNA LAWS MD Ot E87.6 HYPOKALEMIA 10/22/2015 DANNA LAWS MD Ot I10 ESSENTIAL (PRIMARY) HYPERTENSION 10/22/2015 DANNA LAWS MD Ot J18.9 PNEUMONIA, UNSPECIFIED ORGANISM 10/22/2015 DANNA LAWS MD Ot 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 RADICULOPA 10/22/2015 DANNA LAWS MD Ot R33.9 RETENTION OF URINE, UNSPECIFIED 10/22/2015 DANNA LAWS MD Ot Z48.89 ENCOUNTER FOR OTHER SPECIFIED SURGICAL A 10/22/2015 DANNA LAWS MD Ot Z87.891 PERSONAL HISTORY OF NICOTINE DEPENDENCE 10/23/2015 DANNA LAWS MD Ot E87.6 HYPOKALEMIA 10/23/2015 DANNA LAWS MD Ot I10 ESSENTIAL (PRIMARY) HYPERTENSION 10/23/2015 DANNA LAWS MD Ot J18.9 PNEUMONIA, UNSPECIFIED ORGANISM 10/23/2015 DANNA LAWS MD Ot 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 RADICULOPA 10/23/2015 DANNA LAWS MD Ot R33.9 RETENTION OF URINE, UNSPECIFIED 10/23/2015 DANNA LAWS MD Ot Z48.89 ENCOUNTER FOR OTHER SPECIFIED SURGICAL A 10/23/2015 DANNA LAWS MD Ot Z87.891 PERSONAL HISTORY OF NICOTINE DEPENDENCE 10/24/2015 KATELYNN SALAS MD Ot 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 GAMMOPATHY 10/24/2015 KATELYNN SALAS MD Ot I10 ESSENTIAL (PRIMARY) HYPERTENSION 10/24/2015 KATELYNN SALAS MD Ot M12.9 ARTHROPATHY, UNSPECIFIED 10/24/2015 KATELYNN SALAS MD Ot M51.9 UNSP THORACIC, THORACOLUM AND LUMBOSACR 10/24/2015 KATELYNN SALAS MD Ot Z79.899 OTHER SENIOR LIVING (CURRENT) DRUG THERAPY 10/25/2015 DANNA LAWS MD Ot E87.6 HYPOKALEMIA 10/25/2015 DANNA LAWS MD Ot I10 ESSENTIAL (PRIMARY) HYPERTENSION 10/25/2015 DANNA LAWS MD Ot J18.9 PNEUMONIA, UNSPECIFIED ORGANISM 10/25/2015 DANNA LAWS MD Ot 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 RADICULOPA 10/25/2015 DANNA LAWS MD Ot R33.9 RETENTION OF URINE, UNSPECIFIED 10/25/2015 DANNA LAWS MD Ot Z48.89 ENCOUNTER FOR OTHER SPECIFIED SURGICAL A 10/25/2015 DANNA LAWS MD Ot Z87.891 PERSONAL HISTORY OF NICOTINE DEPENDENCE 10/26/2015 DANNA LAWS MD Ot E87.6 HYPOKALEMIA 10/26/2015 DANNA LAWS MD Ot I10 ESSENTIAL (PRIMARY) HYPERTENSION 10/26/2015 DANNA LAWS MD Ot J18.9 PNEUMONIA, UNSPECIFIED ORGANISM 10/26/2015 DANNA LAWS MD Ot 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 RADICULOPA 10/26/2015 DANNA LAWS MD Ot R33.9 RETENTION OF URINE, UNSPECIFIED 10/26/2015 DANNA LAWS MD Ot Z48.89 ENCOUNTER FOR OTHER SPECIFIED SURGICAL A 10/26/2015 DANNA LAWS MD Ot Z87.891 PERSONAL HISTORY OF NICOTINE DEPENDENCE 10/26/2015 DANNA LAWS MD Ot E87.6 HYPOKALEMIA 10/26/2015 DANNA LAWS MD Ot I10 ESSENTIAL (PRIMARY) HYPERTENSION 10/26/2015 DANNA LAWS MD Ot J18.9 PNEUMONIA, UNSPECIFIED ORGANISM 10/26/2015 DANNA LAWS MD Ot 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 RADICULOPA 10/26/2015 DANNA LAWS MD Ot R33.9 RETENTION OF URINE, UNSPECIFIED 10/26/2015 DANNA LAWS MD Ot Z48.89 ENCOUNTER FOR OTHER SPECIFIED SURGICAL A 10/26/2015 DANNA LAWS MD Ot Z87.891 PERSONAL HISTORY OF NICOTINE DEPENDENCE 10/27/2015 DANNA LAWS MD Ot E87.6 HYPOKALEMIA 10/27/2015 DANNA LAWS MD E Ot I10 ESSENTIAL (PRIMARY) HYPERTENSION 10/27/2015 DANNA LAWS MD E Ot J18.9 PNEUMONIA, UNSPECIFIED ORGANISM 10/27/2015 DANNA LAWS MD Ot 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 RADICULOPA 10/27/2015 DANNA LAWS MD Ot R33.9 RETENTION OF URINE, UNSPECIFIED 10/27/2015 DANNA LAWS MD E Ot Z48.89 ENCOUNTER FOR OTHER SPECIFIED SURGICAL A 10/27/2015 DANNA LAWS MD Ot Z87.891 PERSONAL HISTORY OF NICOTINE DEPENDENCE 10/28/2015 DANNA LAWS MD Ot E87.6 HYPOKALEMIA 10/28/2015 DANNA LAWS MD E Ot I10 ESSENTIAL (PRIMARY) HYPERTENSION 10/28/2015 DANNA LAWS MD E Ot J18.9 PNEUMONIA, UNSPECIFIED ORGANISM 10/28/2015 DANNA LAWS MD E Ot 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 RADICULOPA 10/28/2015 DANNA LAWS MD E Ot R33.9 RETENTION OF URINE, UNSPECIFIED 10/28/2015 DANNA LAWS MD Ot Z48.89 ENCOUNTER FOR OTHER SPECIFIED SURGICAL A 10/28/2015 DANNA LAWS MD Ot Z87.891 PERSONAL HISTORY OF NICOTINE DEPENDENCE 10/28/2015 DANNA LAWS MD Ot E87.6 HYPOKALEMIA 10/28/2015 DANNA LAWS MD, Ot I10 ESSENTIAL (PRIMARY) HYPERTENSION 10/28/2015 DANNA LAWS MD Ot J18.9 PNEUMONIA, UNSPECIFIED ORGANISM 10/28/2015 DANNA LAWS MD Ot 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 RADICULOPA 10/28/2015 DANNA LAWS MD Ot N39.498 OTHER SPECIFIED URINARY INCONTINENCE 10/28/2015 DANNA LAWS MD Ot N50.8 OTHER SPECIFIED DISORDERS OF MALE GENITA 10/28/2015 DANNA LAWS MD Ot R33.9 RETENTION OF URINE, UNSPECIFIED 10/28/2015 DANNA LAWS MD Ot R60.0 LOCALIZED EDEMA 10/28/2015 DANNA LAWS MD Ot Z48.89 ENCOUNTER FOR OTHER SPECIFIED SURGICAL A 10/28/2015 DANNA LAWS MD, Ot Z87.891 PERSONAL HISTORY OF NICOTINE DEPENDENCE 11/05/2015 KATELYNN SALAS MD, Ot 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 GAMMOPATHY 11/05/2015 KATELYNN SALAS MD, Ot I10 ESSENTIAL (PRIMARY) HYPERTENSION 11/05/2015 KATELYNN SALAS MD Ot M12.9 ARTHROPATHY, UNSPECIFIED 11/05/2015 KATELYNN SAALS MD Ot M51.9 UNSP THORACIC, THORACOLUM AND LUMBOSACR 11/05/2015 KATELYNN SALAS MD Ot Z79.899 OTHER SENIOR LIVING (CURRENT) DRUG THERAPY 12/10/2015 FRANCISCO LUNA MD Ot N39.0 URINARY TRACT INFECTION, SITE NOT SPECIF 12/23/2015 KATELYNN SALAS MD, Ot 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 GAMMOPATHY 12/23/2015 KATELYNN SALAS MD, Ot I10 ESSENTIAL (PRIMARY) HYPERTENSION 12/23/2015 KATELYNN SALAS MD, Ot M12.9 ARTHROPATHY, UNSPECIFIED 12/23/2015 KATELYNN SALAS MD Ot M51.9 UNSP THORACIC, THORACOLUM AND LUMBOSACR 12/23/2015 KATELYNN SALAS MD Ot 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 03/24/2016 AURE JONES MD, Ot 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 GAMMOPATHY 03/24/2016 AURE JONES MD, Ot I10 ESSENTIAL (PRIMARY) HYPERTENSION 03/24/2016 AURE JONES MD Ot M12.9 ARTHROPATHY, UNSPECIFIED 03/24/2016 AURE JONES MD Ot M51.9 UNSP THORACIC, THORACOLUM AND LUMBOSACR 03/24/2016 AURE JONES MD, Ot 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 06/10/2016 Ot 356.9 IDIO PERIPH NEURPTHY NOS 06/10/2016 Ot 401.9 HYPERTENSION NOS 06/10/2016 Ot 716.90 ARTHROPATHY NOS-UNSPEC 06/10/2016 Ot 721.2 THORACIC SPONDYLOSIS 06/10/2016 Ot 724.01 SPINAL STENOSIS-THORACIC 06/10/2016 Ot 790.99 BLOOD EXAM - OT NONSPECIFIC FINDINGS 06/10/2016 Ot V58.69 OTH MED,LT, CURRENT USE 06/10/2016 Ot 268.9 VITAMIN D DEFICIENCY NOS 06/10/2016 Ot 255.10 HYPERALDOSTERONISM, UNSPECIFIED 06/10/2016 Ot 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 06/10/2016 Ot V45.4 ARTHRODESIS STATUS 06/10/2016 Ot V58.78 AFTERCARE POST SURGERY MUSCULOSKELETAL S 06/10/2016 JEREMY JIMENEZ, FRANCISCO Christopher Ot N39.0 URINARY TRACT INFECTION, SITE NOT SPECIF 06/10/2016 AURE JONES MD Ot 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 GAMMOPATHY 06/10/2016 AURE JONES MD Ot I10 ESSENTIAL (PRIMARY) HYPERTENSION 06/10/2016 AURE JONES MD, Ot M12.9 ARTHROPATHY, UNSPECIFIED 06/10/2016 AURE JONES MD Ot M51.9 UNSP THORACIC, THORACOLUM AND LUMBOSACR 06/10/2016 AURE JONES MD, Ot Z79.899 OTHER SENIOR LIVING (CURRENT) DRUG THERAPY 06/10/2016 TERRY HENRY MD Ot I10 ESSENTIAL (PRIMARY) HYPERTENSION 06/10/2016 TERRY HENRY MD Ot J06.9 ACUTE UPPER RESPIRATORY INFECTION, UNSPE 06/10/2016 TERRY HENRY MD Ot R07.89 OTHER CHEST PAIN 06/10/2016 TERRY HENRY MD Ot 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 06/11/2016 TERRY HENRY MD Ot I10 ESSENTIAL (PRIMARY) HYPERTENSION 06/11/2016 TERRY HENRY MD, Ot J06.9 ACUTE UPPER RESPIRATORY INFECTION, UNSPE 06/11/2016 TERRY HENRY MD Ot R07.89 OTHER CHEST PAIN 06/11/2016 TERRY HENRY MD Ot Z79.899 OTHER SENIOR LIVING (CURRENT) DRUG THERAPY 11/11/2016 TIERRA MARIN MD Ot I10 ESSENTIAL (PRIMARY) HYPERTENSION 11/15/2016 TIERRA MARIN MD, Ot I10 ESSENTIAL (PRIMARY) HYPERTENSION 11/16/2016 TIERRA MARIN MD, Ot I10 ESSENTIAL (PRIMARY) HYPERTENSION 11/16/2016 TIERRA MARIN MD, Ot I10 ESSENTIAL (PRIMARY) HYPERTENSION 11/16/2016 TIERRA MARIN MD, Ot I10 ESSENTIAL (PRIMARY) HYPERTENSION 11/16/2016 TIERRA MARIN MD, Ot I10 ESSENTIAL (PRIMARY) HYPERTENSION 11/22/2016 Ot 268.9 VITAMIN D DEFICIENCY NOS 11/22/2016 Ot 255.10 HYPERALDOSTERONISM, UNSPECIFIED 11/22/2016 Ot 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 11/22/2016 Ot V45.4 ARTHRODESIS STATUS 11/22/2016 Ot V58.78 AFTERCARE POST SURGERY MUSCULOSKELETAL S 11/22/2016 JEREMY JIMENEZ, FRANCISCO Christopher Ot N39.0 URINARY TRACT INFECTION, SITE NOT SPECIF 11/22/2016 AURE JONES MD Ot 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 GAMMOPATHY 11/22/2016 AURE JONES MD, Ot I10 ESSENTIAL (PRIMARY) HYPERTENSION 11/22/2016 AURE JONES MD Ot M12.9 ARTHROPATHY, UNSPECIFIED 11/22/2016 AURE JONES MD Ot M51.9 UNSP THORACIC, THORACOLUM AND LUMBOSACR 11/22/2016 AURE JONES MD Ot 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 11/22/2016 TIERRA MARIN MD Ot G89.29 OTHER CHRONIC PAIN 11/22/2016 TIERRA MARIN MD, Ot I10 ESSENTIAL (PRIMARY) HYPERTENSION 11/22/2016 TIERRA MARIN MD Ot Z87.891 PERSONAL HISTORY OF NICOTINE DEPENDENCE 12/03/2016 TIERRA MARIN MD Ot G89.29 OTHER CHRONIC PAIN 12/03/2016 TIERRA MARIN MD, Ot I10 ESSENTIAL (PRIMARY) HYPERTENSION 12/03/2016 TIERRA MARIN MD Ot Z87.891 PERSONAL HISTORY OF NICOTINE DEPENDENCE 12/03/2016 TIERRA MARIN MD Ot G89.29 OTHER CHRONIC PAIN 12/03/2016 TIERRA MARIN MD Ot I10 ESSENTIAL (PRIMARY) HYPERTENSION 12/03/2016 TIERRA MARIN MD Ot Z87.891 PERSONAL HISTORY OF NICOTINE DEPENDENCE 12/13/2016 TIERRA MARIN MD Ot G89.29 OTHER CHRONIC PAIN 12/13/2016 TIERRA MARIN MD Ot I10 ESSENTIAL (PRIMARY) HYPERTENSION 12/13/2016 TIERRA MARIN MD Ot Z87.891 PERSONAL HISTORY OF NICOTINE DEPENDENCE 12/15/2016 TIERRA MARIN MD Ot G89.29 OTHER CHRONIC PAIN 12/15/2016 TIERRA MARIN MD Ot I10 ESSENTIAL (PRIMARY) HYPERTENSION 12/15/2016 TIERRA MARIN MD Ot Z87.891 PERSONAL HISTORY OF NICOTINE DEPENDENCE 12/15/2016 TIERRA MARIN MD Ot G89.29 OTHER CHRONIC PAIN 12/15/2016 TIERRA MARIN MD Ot I10 ESSENTIAL (PRIMARY) HYPERTENSION 12/15/2016 TIERRA MARIN MD Ot Z87.891 PERSONAL HISTORY OF NICOTINE DEPENDENCE 12/22/2016 TIERRA MARIN MD Ot G89.29 OTHER CHRONIC PAIN 12/22/2016 TIERRA MARIN MD Ot I10 ESSENTIAL (PRIMARY) HYPERTENSION 12/22/2016 TIERRA MARIN MD Ot Z87.891 PERSONAL HISTORY OF NICOTINE DEPENDENCE 04/26/2017 Ot 255.10 HYPERALDOSTERONISM, UNSPECIFIED 04/26/2017 Ot 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 04/26/2017 Ot V45.4 ARTHRODESIS STATUS 04/26/2017 Ot V58.78 AFTERCARE POST SURGERY MUSCULOSKELETAL S 04/26/2017 FRANCISCO LUNA MD Ot N39.0 URINARY TRACT INFECTION, SITE NOT SPECIF 04/26/2017 AURE JONES MD Ot 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 GAMMOPATHY 04/26/2017 AURE JONES MD Ot I10 ESSENTIAL (PRIMARY) HYPERTENSION 04/26/2017 AURE JONES MD Ot M12.9 ARTHROPATHY, UNSPECIFIED 04/26/2017 AURE JONES MD Ot M51.9 UNSP THORACIC, THORACOLUM AND LUMBOSACR 04/26/2017 AURE JONES MD Ot Z79.899 OTHER SENIOR LIVING (CURRENT) DRUG THERAPY 04/26/2017 TIERRA MARIN MD Ot G89.29 OTHER CHRONIC PAIN 04/26/2017 TIERRA MARIN MD Ot I10 ESSENTIAL (PRIMARY) HYPERTENSION 04/26/2017 TIERRA MARIN MD Ot Z87.891 PERSONAL HISTORY OF NICOTINE DEPENDENCE 04/26/2017 TIERRA MARIN MD Ot G89.29 OTHER CHRONIC PAIN 04/26/2017 TIERRA MARIN MD Ot I10 ESSENTIAL (PRIMARY) HYPERTENSION 04/26/2017 TIERRA MARIN MD Ot Z87.891 PERSONAL HISTORY OF NICOTINE DEPENDENCE 05/02/2017 Ot 268.9 VITAMIN D DEFICIENCY NOS 05/04/2017 TIERRA MARIN MD Ot E78.5 HYPERLIPIDEMIA, UNSPECIFIED 05/04/2017 TIERRA MARIN MD Ot I10 ESSENTIAL (PRIMARY) HYPERTENSION 05/04/2017 TIERRA MARIN MD Ot I25.10 ATHSCL HEART DISEASE OF [place] CORONARY 05/04/2017 TIERRA MARIN MD Ot I49.5 SICK SINUS SYNDROME 05/04/2017 TIERRA MARIN MD Ot 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[place] 05/04/2017 TIERRA MARIN MD Ot M19.91 PRIMARY OSTEOARTHRITIS, UNSPECIFIED SITE 05/04/2017 TIERRA MARIN MD Ot R60.0 LOCALIZED EDEMA 05/04/2017 TIERRA MARIN MD Ot 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 05/18/2017 TIERRA MARIN MD Ot 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 GAMMOPATHY 05/18/2017 TIERRA MARIN MD Ot G89.29 OTHER CHRONIC PAIN 05/18/2017 TIERRA MARIN MD Ot I10 ESSENTIAL (PRIMARY) HYPERTENSION 05/18/2017 TIERRA MARIN MD Ot R60.9 EDEMA, UNSPECIFIED 05/18/2017 TIERRA MARIN MD Ot Z87.891 PERSONAL HISTORY OF NICOTINE DEPENDENCE 05/25/2017 TIERRA MARIN MD Ot 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 GAMMOPATHY 05/25/2017 TIERRA MARIN MD Ot G89.29 OTHER CHRONIC PAIN 05/25/2017 TIERRA MARIN MD Ot I10 ESSENTIAL (PRIMARY) HYPERTENSION 05/25/2017 TANIA JIMENEZ, TIERRA Pina Ot R60.9 EDEMA, UNSPECIFIED 05/25/2017 TANIA JIMENEZ, TIERRA Pina Ot Z87.891 PERSONAL HISTORY OF NICOTINE DEPENDENCE 09/22/2017 AURE JONES MD Ot 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 GAMMOPATHY 09/22/2017 AURE JONES MD Ot I10 ESSENTIAL (PRIMARY) HYPERTENSION 09/22/2017 AURE JONES MD Ot M12.9 ARTHROPATHY, UNSPECIFIED 09/22/2017 AURE JONES MD Ot M51.9 UNSP THORACIC, THORACOLUM AND LUMBOSACR 09/22/2017 AURE JONES MD Ot 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 09/28/2017 AURE JONES MD Ot 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, I 09/28/2017 AURE JONES MD Ot 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 GAMMOPATHY 09/28/2017 AURE JONES MD Ot I10 ESSENTIAL (PRIMARY) HYPERTENSION 09/28/2017 AURE JONES MD Ot I25.10 ATHSCL HEART DISEASE OF [place] CORONARY 09/28/2017 AURE JONES MD Ot I49.5 SICK SINUS SYNDROME 09/28/2017 AURE JONES MD Ot M19.91 PRIMARY OSTEOARTHRITIS, UNSPECIFIED SITE 09/28/2017 AURE JONES MD Ot Z79.82 SENIOR LIVING (CURRENT) USE OF ASPIRIN 09/28/2017 AURE JONES MD Ot Z79.899 OTHER SENIOR LIVING (CURRENT) DRUG THERAPY 09/28/2017 AURE JONES MD Ot Z87.891 PERSONAL HISTORY OF NICOTINE DEPENDENCE 09/30/2017 JEREMY JIMENEZ, FRANCISCO Christopher Ot N39.0 URINARY TRACT INFECTION, SITE NOT SPECIF 09/30/2017 AURE JONES MD Ot 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, I 09/30/2017 AURE JONES MD Ot 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 GAMMOPATHY 09/30/2017 AURE JONES MD Ot I10 ESSENTIAL (PRIMARY) HYPERTENSION 09/30/2017 AURE JONES MD Ot I25.10 ATHSCL HEART DISEASE OF [place] CORONARY 09/30/2017 AURE JONES MD Ot I49.5 SICK SINUS SYNDROME 09/30/2017 AURE JONES MD Ot M19.91 PRIMARY OSTEOARTHRITIS, UNSPECIFIED SITE 09/30/2017 AURE JONES MD Ot 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 09/30/2017 AURE JONES MD Ot 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 09/30/2017 AURE JONES MD Ot Z87.891 PERSONAL HISTORY OF NICOTINE DEPENDENCE 09/30/2017 TIERRA MARIN MD Ot G89.29 OTHER CHRONIC PAIN 09/30/2017 TIERRA MARIN MD Ot I10 ESSENTIAL (PRIMARY) HYPERTENSION 09/30/2017 TIERRA MARIN MD Ot Z87.891 PERSONAL HISTORY OF NICOTINE DEPENDENCE 09/30/2017 TIERRA MARIN MD Ot G89.29 OTHER CHRONIC PAIN 09/30/2017 TIERRA MARIN MD J Ot I10 ESSENTIAL (PRIMARY) HYPERTENSION 09/30/2017 TIERRA MARIN MD Ot Z87.891 PERSONAL HISTORY OF NICOTINE DEPENDENCE 09/30/2017 TIERRA MARIN MD Ot 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 GAMMOPATHY 09/30/2017 TIERRA MARIN MD Ot G89.29 OTHER CHRONIC PAIN 09/30/2017 TIERRA MARIN MD Ot I10 ESSENTIAL (PRIMARY) HYPERTENSION 09/30/2017 TIERRA MARIN MD Ot R60.9 EDEMA, UNSPECIFIED 09/30/2017 TIERRA MARIN MD Ot Z87.891 PERSONAL HISTORY OF NICOTINE DEPENDENCE 10/05/2017 KIKI ROWE MD Ot 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, I 10/05/2017 KIKI ROWE MD Ot Z01.818 ENCOUNTER FOR OTHER PREPROCEDURAL EXAMIN 10/07/2017 KIKI ROWE MD Ot E04.1 NONTOXIC SINGLE THYROID NODULE 10/07/2017 KIKI ROWE MD Ot E04.1 NONTOXIC SINGLE THYROID NODULE 10/07/2017 KIKI ROWE MD Ot 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, I 10/07/2017 KIKI ROWE MD Ot Z01.818 ENCOUNTER FOR OTHER PREPROCEDURAL EXAMIN 10/07/2017 IKKI ROWE MD Ot 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, I 10/07/2017 KIKI ROWE MD Ot 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 10/07/2017 KIKI ROWE MD Ot I10 ESSENTIAL (PRIMARY) HYPERTENSION 10/07/2017 KIKI ROWE MD Ot Z79.82 SENIOR LIVING (CURRENT) USE OF ASPIRIN 10/07/2017 KIKI ROWE MD Ot 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 10/07/2017 KIKI ROWE MD Ot Z87.891 PERSONAL HISTORY OF NICOTINE DEPENDENCE 10/11/2017 KIKI ROWE MD Ot 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, I 10/11/2017 KIKI ROWE MD Ot 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 10/11/2017 KIKI ORWE MD Ot I10 ESSENTIAL (PRIMARY) HYPERTENSION 10/11/2017 KIKI ROWE MD Ot Z79.82 SENIOR LIVING (CURRENT) USE OF ASPIRIN 10/11/2017 KIKI ROWE MD Ot 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 10/11/2017 KIKI ROWE MD Ot Z87.891 PERSONAL HISTORY OF NICOTINE DEPENDENCE 10/11/2017 KIKI ROWE MD Ot 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, I 10/11/2017 KIKI ROWE MD Ot 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 10/11/2017 KIKI ROWE MD Ot I10 ESSENTIAL (PRIMARY) HYPERTENSION 10/11/2017 KIKI ROWE MD Ot 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 10/11/2017 KIKI ROWE MD Ot Z79.899 OTHER SENIOR LIVING (CURRENT) DRUG THERAPY 10/11/2017 KIKI ROWE MD Ot Z87.891 PERSONAL HISTORY OF NICOTINE DEPENDENCE 10/12/2017 KIKI ROWE MD Ot 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, I 10/12/2017 KIKI ROWE MD Ot 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 10/12/2017 KIKI ROWE MD Ot I10 ESSENTIAL (PRIMARY) HYPERTENSION 10/12/2017 KIKI ROWE MD Ot Z79.82 SENIOR LIVING (CURRENT) USE OF ASPIRIN 10/12/2017 KIKI ROWE MD Ot 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 10/12/2017 JAE JIMENEZ, KIKI An Ot Z87.891 PERSONAL HISTORY OF NICOTINE DEPENDENCE 10/12/2017 JEREMY JIMENEZ, FRANCISCO Christopher Ot N39.0 URINARY TRACT INFECTION, SITE NOT SPECIF 10/12/2017 AURE JONES MD Ot 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, I 10/12/2017 AURE JONES MD Ot 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 GAMMOPATHY 10/12/2017 AURE JONES MD Ot I10 ESSENTIAL (PRIMARY) HYPERTENSION 10/12/2017 AURE JONES MD Ot I25.10 ATHSCL HEART DISEASE OF [place] CORONARY 10/12/2017 AURE JONES MD Ot I49.5 SICK SINUS SYNDROME 10/12/2017 AURE JONES MD Ot M19.91 PRIMARY OSTEOARTHRITIS, UNSPECIFIED SITE 10/12/2017 AURE JONES MD Ot 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 10/12/2017 AURE JONES MD Ot 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 10/12/2017 AURE JONES MD, Ot Z87.891 PERSONAL HISTORY OF NICOTINE DEPENDENCE 10/12/2017 TIERRA MARIN MD Ot G89.29 OTHER CHRONIC PAIN 10/12/2017 TIERRA MARIN MD Ot I10 ESSENTIAL (PRIMARY) HYPERTENSION 10/12/2017 TIERRA MARIN MD Ot Z87.891 PERSONAL HISTORY OF NICOTINE DEPENDENCE 10/12/2017 TIERRA MARIN MD Ot G89.29 OTHER CHRONIC PAIN 10/12/2017 TIERRA MARIN MD Ot I10 ESSENTIAL (PRIMARY) HYPERTENSION 10/12/2017 TIERRA MARIN MD Ot Z87.891 PERSONAL HISTORY OF NICOTINE DEPENDENCE 10/12/2017 TIERRA MARIN MD Ot 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 GAMMOPATHY 10/12/2017 TIERRA MARIN MD Ot G89.29 OTHER CHRONIC PAIN 10/12/2017 TIERRA MARIN MD Ot I10 ESSENTIAL (PRIMARY) HYPERTENSION 10/12/2017 TIERRA MARIN MD Ot R60.9 EDEMA, UNSPECIFIED 10/12/2017 TIERRA MARIN MD Ot Z87.891 PERSONAL HISTORY OF NICOTINE DEPENDENCE 10/12/2017 AURE JONES MD Ot I70.0 ATHEROSCLEROSIS OF [place] 10/12/2017 AURE JONES MD Ot I77.811 ABDOMINAL [place] ECTASIA 10/12/2017 AURE JONES MD, Ot K57.90 DVRTCLOS OF INTEST, PART UNSP, W/O PERF 10/12/2017 AURE JONES MD Ot K76.89 OTHER SPECIFIED DISEASES OF LIVER 10/12/2017 AURE JONES MD, Ot Z85.820 PERSONAL HISTORY OF MALIGNANT MELANOMA O 10/12/2017 AURE JONES MD, Ot Z87.891 PERSONAL HISTORY OF NICOTINE DEPENDENCE 10/12/2017 AURE JONES MD, Ot 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 ORGAN( 10/12/2017 JAE JIMENEZ, KIKI An Ot E04.1 NONTOXIC SINGLE THYROID NODULE 10/13/2017 KIKI ROWE MD Ot 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, I 10/13/2017 KIKI ROWE MD Ot 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 10/13/2017 KIKI ROWE MD Ot I10 ESSENTIAL (PRIMARY) HYPERTENSION 10/13/2017 KIKI ROWE MD Ot 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 10/13/2017 KIKI ROWE MD Ot 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 10/13/2017 KIKI ROWE MD Ot Z87.891 PERSONAL HISTORY OF NICOTINE DEPENDENCE 10/16/2017 KIKI ROWE MD Ot 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, I 10/16/2017 KIKI ROWE MD Ot 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 10/16/2017 KIKI ROWE MD Ot I10 ESSENTIAL (PRIMARY) HYPERTENSION 10/16/2017 KIKI ROWE MD Ot Z79.82 SENIOR LIVING (CURRENT) USE OF ASPIRIN 10/16/2017 KIKI ROWE MD Ot Z79.899 OTHER SENIOR LIVING (CURRENT) DRUG THERAPY 10/16/2017 KIKI ROWE MD Ot Z87.891 PERSONAL HISTORY OF NICOTINE DEPENDENCE 10/19/2017 KIKI ROWE MD Ot 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, I 10/19/2017 KIKI ROWE MD Ot 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 ORGAN( 10/24/2017 KIKI ROWE MD, Ot 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, I 10/24/2017 KIKI ROWE MD, Ot I25.10 ATHSCL HEART DISEASE OF [place] CORONARY 10/24/2017 KIIK ROWE MD, Ot K57.30 DVRTCLOS OF LG INT W/O PERFORATION OR AB 10/24/2017 KIKI ROWE MD Ot 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 10/24/2017 KIKI ROWE MD Ot 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 10/24/2017 KIKI ROWE MD Ot Z87.891 PERSONAL HISTORY OF NICOTINE DEPENDENCE 10/25/2017 KIKI ROWE MD Ot Z01.818 ENCOUNTER FOR OTHER PREPROCEDURAL EXAMIN 10/25/2017 KIKI ROWE MD Ot Z12.11 ENCOUNTER FOR SCREENING FOR MALIGNANT NE 10/25/2017 KIKI ROWE MD Ot Z85.820 PERSONAL HISTORY OF MALIGNANT MELANOMA O 10/26/2017 KIKI ROWE MD, Ot 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, I 10/26/2017 KIKI ROWE MD Ot I25.10 ATHSCL HEART DISEASE OF [place] CORONARY 10/26/2017 KIKI ROWE MD Ot K57.30 DVRTCLOS OF LG INT W/O PERFORATION OR AB 10/26/2017 KIKI ROWE MD Ot 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 10/26/2017 KIKI ROWE MD Ot Z79.899 OTHER SENIOR LIVING (CURRENT) DRUG THERAPY 10/26/2017 KIKI ROWE MD Ot Z87.891 PERSONAL HISTORY OF NICOTINE DEPENDENCE 10/26/2017 KIKI ROWE MD Ot 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, I 10/26/2017 KIKI ROWE MD Ot I25.10 ATHSCL HEART DISEASE OF [place] CORONARY 10/26/2017 KIKI ROWE MD Ot K57.30 DVRTCLOS OF LG INT W/O PERFORATION OR AB 10/26/2017 KIKI ROWE MD, Ot 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 10/26/2017 KIKI ROWE MD Ot Z79.899 OTHER SENIOR LIVING (CURRENT) DRUG THERAPY 10/26/2017 KIKI ROWE MD Ot Z87.891 PERSONAL HISTORY OF NICOTINE DEPENDENCE 10/26/2017 AURE JONES MD, Ot 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, I 10/26/2017 AURE JONES MD Ot 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 GAMMOPATHY 10/26/2017 AURE JONES MD Ot I10 ESSENTIAL (PRIMARY) HYPERTENSION 10/26/2017 AURE JONES MD Ot I25.10 ATHSCL HEART DISEASE OF [place] CORONARY 10/26/2017 AURE JONES MD Ot I49.5 SICK SINUS SYNDROME 10/26/2017 AURE JONES MD Ot M19.91 PRIMARY OSTEOARTHRITIS, UNSPECIFIED SITE 10/26/2017 AURE JONES MD Ot Z79.82 SENIOR LIVING (CURRENT) USE OF ASPIRIN 10/26/2017 AURE JONES MD Ot 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 10/26/2017 AURE JONES MD Ot Z87.891 PERSONAL HISTORY OF NICOTINE DEPENDENCE 10/27/2017 KIKI ROWE MD Ot E04.1 NONTOXIC SINGLE THYROID NODULE 10/30/2017 KIKI ROWE MD, Ot 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, I 10/30/2017 KIKI ROWE MD Ot I25.10 ATHSCL HEART DISEASE OF [place] CORONARY 10/30/2017 KIKI ROWE MD Ot K57.30 DVRTCLOS OF LG INT W/O PERFORATION OR AB 10/30/2017 KIKI ROWE MD Ot 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 10/30/2017 KIKI ROWE MD, Ot Z79.899 OTHER SENIOR LIVING (CURRENT) DRUG THERAPY 10/30/2017 KIKI ROWE MD, Ot Z87.891 PERSONAL HISTORY OF NICOTINE DEPENDENCE 10/31/2017 AURE JONES MD Ot K76.89 OTHER SPECIFIED DISEASES OF LIVER 10/31/2017 AURE JONES MD Ot K76.89 OTHER SPECIFIED DISEASES OF LIVER 11/01/2017 AURE JONES MD Ot M23.8X2 OTHER INTERNAL DERANGEMENTS OF LEFT KNEE 11/01/2017 AURE JONES MD Ot S83.242A OTH TEAR OF MEDIAL MENISCUS, CURRENT INJ 11/01/2017 AURE JONES MD Ot S83.282A OTH TEAR OF LAT MENSC, CURRENT INJURY, L 11/01/2017 AURE JONES MD Ot Z85.820 PERSONAL HISTORY OF MALIGNANT MELANOMA O 11/01/2017 AURE JONES MD Ot M23.8X2 OTHER INTERNAL DERANGEMENTS OF LEFT KNEE 11/01/2017 AURE JONES MD Ot S83.242A OTH TEAR OF MEDIAL MENISCUS, CURRENT INJ 11/01/2017 AURE JONES MD Ot S83.282A OTH TEAR OF LAT MENSC, CURRENT INJURY, L 11/01/2017 AURE JONES MD Ot Z85.820 PERSONAL HISTORY OF MALIGNANT MELANOMA O 11/01/2017 AURE JONES MD Ot Z85.820 PERSONAL HISTORY OF MALIGNANT MELANOMA O 11/02/2017 KIKI ROWE MD Ot E04.1 NONTOXIC SINGLE THYROID NODULE 11/02/2017 AURE JONES MD Ot M23.8X2 OTHER INTERNAL DERANGEMENTS OF LEFT KNEE 11/02/2017 AURE JONES MD Ot S83.242A OTH TEAR OF MEDIAL MENISCUS, CURRENT INJ 11/02/2017 AURE JONES MD Ot S83.282A OTH TEAR OF LAT MENSC, CURRENT INJURY, L 11/02/2017 AURE JONES MD Ot Z85.820 PERSONAL HISTORY OF MALIGNANT MELANOMA O 11/03/2017 AURE JONES MD Ot 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, I 11/03/2017 AURE JONES MD Ot 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 GAMMOPATHY 11/03/2017 AURE JONES MD Ot I10 ESSENTIAL (PRIMARY) HYPERTENSION 11/03/2017 AURE JONES MD Ot I25.10 ATHSCL HEART DISEASE OF [place] CORONARY 11/03/2017 AURE JONES MD Ot I49.5 SICK SINUS SYNDROME 11/03/2017 AURE JONES MD Ot M19.91 PRIMARY OSTEOARTHRITIS, UNSPECIFIED SITE 11/03/2017 AURE JONES MD Ot 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 11/03/2017 AURE JONES MD Ot 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 11/03/2017 AURE JONES MD Ot Z87.891 PERSONAL HISTORY OF NICOTINE DEPENDENCE 11/03/2017 AURE JONES MD Ot 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, I 11/03/2017 AURE JONES MD Ot 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 GAMMOPATHY 11/03/2017 AURE JONES MD Ot I10 ESSENTIAL (PRIMARY) HYPERTENSION 11/03/2017 AURE JONES MD Ot I25.10 ATHSCL HEART DISEASE OF [place] CORONARY 11/03/2017 AURE JONES MD Ot I49.5 SICK SINUS SYNDROME 11/03/2017 AURE JONES MD Ot M19.91 PRIMARY OSTEOARTHRITIS, UNSPECIFIED SITE 11/03/2017 AURE JONES MD Ot Z79.82 SENIOR LIVING (CURRENT) USE OF ASPIRIN 11/03/2017 AURE JONES MD Ot 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 11/03/2017 AURE JONES MD Ot Z87.891 PERSONAL HISTORY OF NICOTINE DEPENDENCE 11/04/2017 AURE JONES MD Ot 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, I 11/04/2017 AURE JONES MD Ot 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 GAMMOPATHY 11/04/2017 AURE JONES MD Ot I10 ESSENTIAL (PRIMARY) HYPERTENSION 11/04/2017 AURE JONES MD Ot I25.10 ATHSCL HEART DISEASE OF [place] CORONARY 11/04/2017 AURE JONES MD Ot I49.5 SICK SINUS SYNDROME 11/04/2017 AURE JONES MD Ot M19.91 PRIMARY OSTEOARTHRITIS, UNSPECIFIED SITE 11/04/2017 AURE JONES MD Ot 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 11/04/2017 AURE JONSE MD Ot Z79.899 OTHER SENIOR LIVING (CURRENT) DRUG THERAPY 11/04/2017 AURE JONES MD Ot Z87.891 PERSONAL HISTORY OF NICOTINE DEPENDENCE 11/06/2017 AURE JONES MD Ot Z85.820 PERSONAL HISTORY OF MALIGNANT MELANOMA O 11/08/2017 AURE JONES MD, Ot 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, I 11/08/2017 AURE JONES MD Ot 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 GAMMOPATHY 11/08/2017 AURE JONES MD Ot I10 ESSENTIAL (PRIMARY) HYPERTENSION 11/08/2017 AURE JONES MD Ot I25.10 ATHSCL HEART DISEASE OF [place] CORONARY 11/08/2017 AURE JONES MD Ot I49.5 SICK SINUS SYNDROME 11/08/2017 AURE JONES MD Ot M19.91 PRIMARY OSTEOARTHRITIS, UNSPECIFIED SITE 11/08/2017 AURE JONES MD Ot Z79.82 SENIOR LIVING (CURRENT) USE OF ASPIRIN 11/08/2017 AURE JONES MD, Ot 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 11/08/2017 AURE JONES MD, Ot Z87.891 PERSONAL HISTORY OF NICOTINE DEPENDENCE 11/08/2017 KIKI ROWE MD, Ot 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, I 11/09/2017 SKYLA RUTH Ot E78.2 MIXED HYPERLIPIDEMIA 11/10/2017 KIKI ROWE MD, Ot Z01.818 ENCOUNTER FOR OTHER PREPROCEDURAL EXAMIN 11/10/2017 SKYLA RUTH Ot E78.2 MIXED HYPERLIPIDEMIA 11/10/2017 SKYLA RUTH Ot I10 ESSENTIAL (PRIMARY) HYPERTENSION 11/11/2017 KIKI ROWE MD, Ot 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, I 11/11/2017 KIKI ROWE MD Ot 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 11/11/2017 KIKI ROWE MD, Ot I10 ESSENTIAL (PRIMARY) HYPERTENSION 11/11/2017 KIKI ROWE MD Ot I25.10 ATHSCL HEART DISEASE OF [place] CORONARY 11/11/2017 KIKI ROWE MD Ot Z79.82 SENIOR LIVING (CURRENT) USE OF ASPIRIN 11/11/2017 KIKI ROWE MD, Ot Z79.899 OTHER SENIOR LIVING (CURRENT) DRUG THERAPY 11/11/2017 KIKI ROWE MD Ot Z87.891 PERSONAL HISTORY OF NICOTINE DEPENDENCE 11/15/2017 KIKI ROWE MD, Ot 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, I 11/15/2017 KIKI ROWE MD, Ot 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 11/15/2017 KIKI ROWE MD Ot I10 ESSENTIAL (PRIMARY) HYPERTENSION 11/15/2017 KIKI ROWE MD, Ot I25.10 ATHSCL HEART DISEASE OF [place] CORONARY 11/15/2017 KIKI ROWE MD Ot 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 11/15/2017 KIKI ROWE MD, Ot Z79.899 OTHER SENIOR LIVING (CURRENT) DRUG THERAPY 11/15/2017 KIKI ROWE MD, Ot Z87.891 PERSONAL HISTORY OF NICOTINE DEPENDENCE 11/17/2017 AURE JONES MD Ot S83.242A OTH TEAR OF MEDIAL MENISCUS, CURRENT INJ 11/17/2017 AURE JONES MD Ot S83.282A OTH TEAR OF LAT MENSC, CURRENT INJURY, L 11/17/2017 AURE JONES MD Ot Z85.820 PERSONAL HISTORY OF MALIGNANT MELANOMA O 11/17/2017 KIKI ROWE MD, Ot 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, I 11/17/2017 AURE JONES MD Ot K76.89 OTHER SPECIFIED DISEASES OF LIVER 11/17/2017 AURE JONES MD Ot S83.242A OTH TEAR OF MEDIAL MENISCUS, CURRENT INJ 11/17/2017 AURE JONES MD Ot S83.282A OTH TEAR OF LAT MENSC, CURRENT INJURY, L 11/17/2017 AURE JONES MD Ot Z85.820 PERSONAL HISTORY OF MALIGNANT MELANOMA O 11/22/2017 KIKI ROWE MD, Ot 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, I 11/22/2017 KIKI ROWE MD, Ot 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 11/22/2017 KIKI ROWE MD Ot I10 ESSENTIAL (PRIMARY) HYPERTENSION 11/22/2017 KIKI ROWE MD Ot I25.10 ATHSCL HEART DISEASE OF [place] CORONARY 11/22/2017 KIKI ROWE MD Ot 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 11/22/2017 KIKI ROWE MD Ot 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 11/22/2017 KIKI ROWE MD Ot Z87.891 PERSONAL HISTORY OF NICOTINE DEPENDENCE 11/22/2017 AURE JONES MD Ot Z85.820 PERSONAL HISTORY OF MALIGNANT MELANOMA O 11/23/2017 AURE JONES MD Ot K76.89 OTHER SPECIFIED DISEASES OF LIVER 11/23/2017 AURE JONES MD Ot 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, I 11/23/2017 AURE JONES MD Ot 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 GAMMOPATHY 11/23/2017 AURE JONES MD Ot I10 ESSENTIAL (PRIMARY) HYPERTENSION 11/23/2017 AURE JONES MD Ot I25.10 ATHSCL HEART DISEASE OF [place] CORONARY 11/23/2017 AURE JONES MD Ot I49.5 SICK SINUS SYNDROME 11/23/2017 AURE JONES MD Ot M19.91 PRIMARY OSTEOARTHRITIS, UNSPECIFIED SITE 11/23/2017 AURE JOENS MD Ot Z79.82 SENIOR LIVING (CURRENT) USE OF ASPIRIN 11/23/2017 AURE JONES MD Ot 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 11/23/2017 AURE JONES MD Ot Z87.891 PERSONAL HISTORY OF NICOTINE DEPENDENCE 11/30/2017 SKYLA RUTH Ot E78.2 MIXED HYPERLIPIDEMIA 11/30/2017 SKYLA RUTH Ot I10 ESSENTIAL (PRIMARY) HYPERTENSION 12/01/2017 AURE JONES MD Ot Z85.820 PERSONAL HISTORY OF MALIGNANT MELANOMA O 12/01/2017 AURE JONES MD Ot S83.242A OTH TEAR OF MEDIAL MENISCUS, CURRENT INJ 12/01/2017 AURE JONES MD Ot S83.282A OTH TEAR OF LAT MENSC, CURRENT INJURY, L 12/01/2017 AURE JONES MD Ot Z85.820 PERSONAL HISTORY OF MALIGNANT MELANOMA O 12/12/2017 AURE JONES MD Ot 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, I 12/12/2017 AURE JONES MD Ot 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 GAMMOPATHY 12/12/2017 AURE JONES MD Ot I10 ESSENTIAL (PRIMARY) HYPERTENSION 12/12/2017 AURE JONES MD Ot I25.10 ATHSCL HEART DISEASE OF [place] CORONARY 12/12/2017 AURE JONES MD Ot I49.5 SICK SINUS SYNDROME 12/12/2017 AURE JONES MD, Ot M19.91 PRIMARY OSTEOARTHRITIS, UNSPECIFIED SITE 12/12/2017 AURE JONES MD Ot Z79.82 SENIOR LIVING (CURRENT) USE OF ASPIRIN 12/12/2017 AURE JONES MD Ot 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 12/12/2017 AURE JONES MD Ot Z87.891 PERSONAL HISTORY OF NICOTINE DEPENDENCE 12/21/2017 JAE JIMENEZ, KIKI An Ot 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, I 12/21/2017 KIKI ROWE MD Ot 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 12/21/2017 KIKI ROWE MD Ot I10 ESSENTIAL (PRIMARY) HYPERTENSION 12/21/2017 KIKI ROWE MD Ot I25.10 ATHSCL HEART DISEASE OF [place] CORONARY 12/21/2017 KIKI ROWE MD Ot 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 12/21/2017 KIKI ROWE MD Ot Z79.899 OTHER SENIOR LIVING (CURRENT) DRUG THERAPY 12/21/2017 KIKI ROWE MD Ot Z87.891 PERSONAL HISTORY OF NICOTINE DEPENDENCE 12/23/2017 AURE JONES MD, Ot 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, I 12/23/2017 AURE JONES MD Ot 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 GAMMOPATHY 12/23/2017 AURE JONES MD Ot I10 ESSENTIAL (PRIMARY) HYPERTENSION 12/23/2017 AURE JONES MD Ot I25.10 ATHSCL HEART DISEASE OF [place] CORONARY 12/23/2017 AURE JONES MD Ot I49.5 SICK SINUS SYNDROME 12/23/2017 AURE JONES MD, Ot M19.91 PRIMARY OSTEOARTHRITIS, UNSPECIFIED SITE 12/23/2017 AURE JONES MD Ot 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 12/23/2017 ARUE JONES MD Ot 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 12/23/2017 AURE JONES MD Ot Z87.891 PERSONAL HISTORY OF NICOTINE DEPENDENCE 01/05/2018 AURE JONES MD Ot 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, I 01/05/2018 AURE JONES MD Ot 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 GAMMOPATHY 01/05/2018 AURE JONES MD Ot I10 ESSENTIAL (PRIMARY) HYPERTENSION 01/05/2018 AURE JONES MD Ot I25.10 ATHSCL HEART DISEASE OF [place] CORONARY 01/05/2018 AURE JONES MD Ot I49.5 SICK SINUS SYNDROME 01/05/2018 AURE JONES MD Ot M19.91 PRIMARY OSTEOARTHRITIS, UNSPECIFIED SITE 01/05/2018 AURE JOENS MD Ot 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 01/05/2018 AURE JONES MD Ot 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 01/05/2018 AURE JONES MD Ot Z87.891 PERSONAL HISTORY OF NICOTINE DEPENDENCE 01/05/2018 AURE JONES MD Ot 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, I 01/05/2018 AURE JONES MD Ot 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 GAMMOPATHY 01/05/2018 AURE JONES MD Ot I10 ESSENTIAL (PRIMARY) HYPERTENSION 01/05/2018 AURE JONES MD Ot I25.10 ATHSCL HEART DISEASE OF [place] CORONARY 01/05/2018 AURE JONES MD Ot I49.5 SICK SINUS SYNDROME 01/05/2018 AURE JONES MD Ot M19.91 PRIMARY OSTEOARTHRITIS, UNSPECIFIED SITE 01/05/2018 AURE JONES MD Ot Z79.82 SENIOR LIVING (CURRENT) USE OF ASPIRIN 01/05/2018 AURE JONES MD Ot Z79.899 OTHER SENIOR LIVING (CURRENT) DRUG THERAPY 01/05/2018 AURE JONES MD Ot Z87.891 PERSONAL HISTORY OF NICOTINE DEPENDENCE 01/19/2018 AURE JONES MD Ot 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, I 01/19/2018 AURE JONES MD Ot 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 GAMMOPATHY 01/19/2018 AURE JONES MD Ot I10 ESSENTIAL (PRIMARY) HYPERTENSION 01/19/2018 AURE JONES MD Ot I25.10 ATHSCL HEART DISEASE OF [place] CORONARY 01/19/2018 AURE JONES MD Ot I49.5 SICK SINUS SYNDROME 01/19/2018 AURE JONES MD Ot M19.91 PRIMARY OSTEOARTHRITIS, UNSPECIFIED SITE 01/19/2018 AURE JONES MD Ot Z79.82 SENIOR LIVING (CURRENT) USE OF ASPIRIN 01/19/2018 AURE JONES MD Ot 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 01/19/2018 AURE JONES MD Ot Z87.891 PERSONAL HISTORY OF NICOTINE DEPENDENCE 02/17/2018 AURE JONES MD Ot 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, I 02/17/2018 AURE JONES MD Ot 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 GAMMOPATHY 02/17/2018 AURE JONES MD Ot I10 ESSENTIAL (PRIMARY) HYPERTENSION 02/17/2018 AURE JONES MD Ot I25.10 ATHSCL HEART DISEASE OF [place] CORONARY 02/17/2018 AURE JONES MD Ot I49.5 SICK SINUS SYNDROME 02/17/2018 AURE JONES MD Ot M19.91 PRIMARY OSTEOARTHRITIS, UNSPECIFIED SITE 02/17/2018 AURE JONES MD Ot 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 02/17/2018 AURE JONES MD Ot Z79.899 OTHER SENIOR LIVING (CURRENT) DRUG THERAPY 02/17/2018 AURE JONES MD Ot Z87.891 PERSONAL HISTORY OF NICOTINE DEPENDENCE 03/02/2018 AURE JONES MD Ot 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, I 03/02/2018 AURE JONES MD Ot 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 GAMMOPATHY 03/02/2018 AURE JONES MD Ot I10 ESSENTIAL (PRIMARY) HYPERTENSION 03/02/2018 AURE JONES MD Ot I25.10 ATHSCL HEART DISEASE OF [place] CORONARY 03/02/2018 AURE JONES MD Ot I49.5 SICK SINUS SYNDROME 03/02/2018 AURE JONES MD Ot M19.91 PRIMARY OSTEOARTHRITIS, UNSPECIFIED SITE 03/02/2018 AURE JONES MD Ot Z51.11 ENCOUNTER FOR ANTINEOPLASTIC CHEMOTHERAP 03/02/2018 AURE JONES MD Ot 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 Results Test Result Range Complete blood count (CBC) with automated white blood cell (WBC) differential - 06/10/16 06:07 Blood leukocytes automated count (number/volume) 6.4 10*3/uL 4.3-11.0 Blood erythrocytes automated count (number/volume) 4.53 10*6/uL 4.35-5.85 Venous blood hemoglobin measurement (mass/volume) 13.0 g/dL 13.3-17.7 Blood hematocrit (volume fraction) 39 % 40-54 Automated erythrocyte mean corpuscular volume 86 [foz_us] 80-99 Automated erythrocyte mean corpuscular hemoglobin (mass per erythrocyte) 29 pg 25-34 Automated erythrocyte mean corpuscular hemoglobin concentration measurement ( mass/volume) 34 g/dL 32-36 Automated erythrocyte distribution width ratio 14.8 % 10.0-14.5 Automated blood platelet count (count/volume) 243 10*3/uL 130-400 Automated blood platelet mean volume measurement 10.5 [foz_us] 7.4-10.4 Automated blood neutrophils/100 leukocytes 53 % 42-75 Automated blood lymphocytes/100 leukocytes 32 % 12-44 Blood monocytes/100 leukocytes 7 % 0-12 Automated blood eosinophils/100 leukocytes 7 % 0-10 Automated blood basophils/100 leukocytes 1 % 0-10 Blood neutrophils automated count (number/volume) 3.4 10*3 1.8-7.8 Blood lymphocytes automated count (number/volume) 2.1 10*3 1.0-4.0 Blood monocytes automated count (number/volume) 0.4 10*3 0.0-1.0 Automated eosinophil count 0.5 10*3/uL 0.0-0.3 Automated blood basophil count (count/volume) 0.0 10*3/uL 0.0-0.1 PT panel in platelet poor plasma by coagulation assay - 06/10/16 06:07 Prothrombin time (PT) in platelet poor plasma by coagulation assay 13.3 s 12.2-14.7 INR in platelet poor plasma or blood by coagulation assay 1.0 0.8-1.4 Activated partial thromboplastin time (aPTT) in platelet poor plasma bycoagulation assay - 06/10/16 06:07 Activated partial thromboplastin time (aPTT) in platelet poor plasma bycoagulation assay 28 s 24-35 Fibrin D-dimer FEU measurement in platelet poor plasma (mass/volume) - 12/08/ 16 06:07 Fibrin D-dimer FEU measurement in platelet poor plasma (mass/volume) 0.43 ug/mL 0.00-0.49 Comprehensive metabolic panel - 06/10/16 06:07 Serum or plasma sodium measurement (moles/volume) 141 mmol/L 135-145 Serum or plasma potassium measurement (moles/volume) 4.3 mmol/L 3.6-5.0 Serum or plasma chloride measurement (moles/volume) 109 mmol/L 98-107 Carbon dioxide 22 mmol/L 21-32 Serum or plasma anion gap determination (moles/volume) 10 mmol/L 5-14 Serum or plasma urea nitrogen measurement (mass/volume) 27 mg/dL 7-18 Serum or plasma creatinine measurement (mass/volume) 0.78 mg/dL 0.60-1.30 Serum or plasma urea nitrogen/creatinine mass ratio 35 NRG Serum or plasma creatinine measurement with calculation of estimated glomerular filtration rate > NRG Serum or plasma glucose measurement (mass/volume) 109 mg/dL 70-105 Serum or plasma calcium measurement (mass/volume) 9.4 mg/dL 8.5-10.1 Serum or plasma total bilirubin measurement (mass/volume) 0.6 mg/dL 0.1-1.0 Serum or plasma alkaline phosphatase measurement (enzymatic activity/volume) 67 U/L 40-136 Serum or plasma aspartate aminotransferase measurement (enzymatic activity/ volume) 17 U/L 5-34 Serum or plasma alanine aminotransferase measurement (enzymatic activity/volume ) 18 U/L 0-55 Serum or plasma protein measurement (mass/volume) 6.8 g/dL 6.4-8.2 Serum or plasma albumin measurement (mass/volume) 3.9 g/dL 3.2-4.5 Serum or plasma troponin i.cardiac measurement (mass/volume) - 06/10/16 06:07 Serum or plasma troponin i.cardiac measurement (mass/volume) < ng/ mL <0.30 Serum or plasma C reactive protein measurement (mass/volume) - 06/10/16 06:07 Serum or plasma C reactive protein measurement (mass/volume) 0.02 mg /dL 0.00-0.50 Influenza virus A and B antigen detection - 06/10/16 06:28 FLU RESULT NEGATIVE FOR INFLUENZA A AND B ANTIGENS BY IA NRG Complete urinalysis with reflex to culture - 06/10/16 07:07 Urine color determination YELLOW NRG Urine clarity determination CLEAR NRG Urine pH measurement by test strip 6.5 5-9 Specific gravity of urine by test strip 1.015 1.016- 1.022 Urine protein assay by test strip, semi-quantitative NEGATIVE NEGATIVE Urine glucose detection by automated test strip NEGATIVE NEGATIVE Erythrocytes detection in urine sediment by light microscopy NEGATIVE NEGATIVE Urine ketones detection by automated test strip NEGATIVE NEGATIVE Urine nitrite detection by test strip NEGATIVE NEGATIVE Urine total bilirubin detection by test strip NEGATIVE NEGATIVE Urine urobilinogen measurement by automated test strip (mass/volume) NORMAL NORMAL Urine leukocyte esterase detection by dipstick NEGATIVE NEGATIVE Automated urine sediment erythrocyte count by microscopy (number/high power field) NONE NRG Automated urine sediment leukocyte count by microscopy (number/high power field ) [HPF] NRG Bacteria detection in urine sediment by light microscopy TRACE NRG Squamous epithelial cells detection in urine sediment by light microscopy 2-5 NRG Crystals detection in urine sediment by light microscopy NONE NRG Casts detection in urine sediment by light microscopy NONE NRG Mucus detection in urine sediment by light microscopy NEGATIVE NRG Complete urinalysis with reflex to culture NO NRG Liver function panel (serum or plasma alk phos, alb, total and direct bili, total protein, ALT, AST) - 05/04/17 11:24 Serum or plasma total bilirubin measurement (mass/volume) 0.8 mg/dL 0.1-1.0 Serum or plasma alkaline phosphatase measurement (enzymatic activity/volume) 76 U/L 40-136 Serum or plasma aspartate aminotransferase measurement (enzymatic activity/ volume) 21 U/L 5-34 Serum or plasma alanine aminotransferase measurement (enzymatic activity/volume ) 16 U/L 0-55 Serum or plasma protein measurement (mass/volume) 7.1 g/dL 6.4-8.2 Serum or plasma albumin measurement (mass/volume) 4.1 g/dL 3.2-4.5 Bilirubin direct 0.3 mg/dL 0.0-0.3 Serum or plasma indirect bilirubin measurement (mass/volume) 0.5 mg/ dL [facility] Lipid 1996 panel - 05/04/17 11:24 Serum or plasma triglyceride measurement (mass/volume) 92 mg/dL <150 Serum or plasma cholesterol measurement (mass/volume) 186 mg/dL < 200 Serum or plasma cholesterol in HDL measurement (mass/volume) 51 mg/ dL 40-60 Cholesterol in LDL [mass/volume] in serum or plasma by direct assay 123 mg/dL 1-129 Serum or plasma cholesterol in VLDL measurement (mass/volume) 18 mg/ dL 5-40 Automated blood complete blood count (hemogram) panel - 05/04/17 12:00 Blood leukocytes automated count (number/volume) 7.1 10*3/uL 4.3-11.0 Blood erythrocytes automated count (number/volume) 4.79 10*6/uL 4.35-5.85 Venous blood hemoglobin measurement (mass/volume) 13.8 g/dL 13.3-17.7 Blood hematocrit (volume fraction) 41 % 40-54 Automated erythrocyte mean corpuscular volume 85 [foz_us] 80-99 Automated erythrocyte mean corpuscular hemoglobin (mass per erythrocyte) 29 pg 25-34 Automated erythrocyte mean corpuscular hemoglobin concentration measurement ( mass/volume) 34 g/dL 32-36 Automated erythrocyte distribution width ratio 13.6 % 10.0-14.5 Automated blood platelet count (count/volume) 269 10*3/uL 130-400 Automated blood platelet mean volume measurement 9.7 [foz_us] 7.4-10.4 PT panel in platelet poor plasma by coagulation assay - 05/04/17 12:00 Prothrombin time (PT) in platelet poor plasma by coagulation assay 12.6 s 12.2-14.7 INR in platelet poor plasma or blood by coagulation assay 0.9 0.8-1.4 Activated partial thromboplastin time (aPTT) in platelet poor plasma bycoagulation assay - 05/04/17 12:00 Activated partial thromboplastin time (aPTT) in platelet poor plasma bycoagulation assay 27 s 24-35 Comprehensive metabolic panel - 05/04/17 12:00 Serum or plasma sodium measurement (moles/volume) 139 mmol/L 135-145 Serum or plasma potassium measurement (moles/volume) 3.6 mmol/L 3.6-5.0 Serum or plasma chloride measurement (moles/volume) 104 mmol/L 98-107 Carbon dioxide 26 mmol/L 21-32 Serum or plasma anion gap determination (moles/volume) 9 mmol/L 5-14 Serum or plasma urea nitrogen measurement (mass/volume) 12 mg/dL 7-18 Serum or plasma creatinine measurement (mass/volume) 0.77 mg/dL 0.60-1.30 Serum or plasma urea nitrogen/creatinine mass ratio 16 NRG Serum or plasma creatinine measurement with calculation of estimated glomerular filtration rate > NRG Serum or plasma glucose measurement (mass/volume) 114 mg/dL 70-105 Serum or plasma calcium measurement (mass/volume) 9.4 mg/dL 8.5-10.1 Serum or plasma total bilirubin measurement (mass/volume) 0.9 mg/dL 0.1-1.0 Serum or plasma alkaline phosphatase measurement (enzymatic activity/volume) 76 U/L 40-136 Serum or plasma aspartate aminotransferase measurement (enzymatic activity/ volume) 20 U/L 5-34 Serum or plasma alanine aminotransferase measurement (enzymatic activity/volume ) 17 U/L 0-55 Serum or plasma protein measurement (mass/volume) 7.2 g/dL 6.4-8.2 Serum or plasma albumin measurement (mass/volume) 4.2 g/dL 3.2-4.5 Lipid 1996 panel - 05/04/17 12:00 Serum or plasma triglyceride measurement (mass/volume) 94 mg/dL <150 Serum or plasma cholesterol measurement (mass/volume) 188 mg/dL < 200 Serum or plasma cholesterol in HDL measurement (mass/volume) 55 mg/ dL 40-60 Cholesterol in LDL [mass/volume] in serum or plasma by direct assay 125 mg/dL 1-129 Serum or plasma cholesterol in VLDL measurement (mass/volume) 19 mg/ dL 5-40 Methicillin resistant Staphylococcus aureus (MRSA) screening culture - 12:00 Methicillin resistant Staphylococcus aureus (MRSA) screening culture NEG NR Methicillin resistant Staphylococcus aureus (MRSA) screening culture - 07:34 Methicillin resistant Staphylococcus aureus (MRSA) screening culture NEG NRG Methicillin resistant Staphylococcus aureus (MRSA) screening culture - 07:05 Methicillin resistant Staphylococcus aureus (MRSA) screening culture NEG NRG Complete blood count (CBC) with automated white blood cell (WBC) differential - 03/18/18 21:20 Blood leukocytes automated count (number/volume) 5.5 10*3/uL 4.3-11.0 Blood erythrocytes automated count (number/volume) 4.16 10*6/uL 4.35-5.85 Venous blood hemoglobin measurement (mass/volume) 12.0 g/dL 13.3-17.7 Blood hematocrit (volume fraction) 35 % 40-54 Automated erythrocyte mean corpuscular volume 85 [foz_us] 80-99 Automated erythrocyte mean corpuscular hemoglobin (mass per erythrocyte) 29 pg 25-34 Automated erythrocyte mean corpuscular hemoglobin concentration measurement ( mass/volume) 34 g/dL 32-36 Automated erythrocyte distribution width ratio 13.5 % 10.0-14.5 Automated blood platelet count (count/volume) 272 10*3/uL 130-400 Automated blood platelet mean volume measurement 9.4 [foz_us] 7.4-10.4 Automated blood neutrophils/100 leukocytes 87 % 42-75 Automated blood lymphocytes/100 leukocytes 9 % 12-44 Blood monocytes/100 leukocytes 4 % 0-12 Automated blood eosinophils/100 leukocytes 0 % 0-10 Automated blood basophils/100 leukocytes 0 % 0-10 Blood neutrophils automated count (number/volume) 4.8 10*3 1.8-7.8 Blood lymphocytes automated count (number/volume) 0.5 10*3 1.0-4.0 Blood monocytes automated count (number/volume) 0.2 10*3 0.0-1.0 Automated eosinophil count 0.0 10*3/uL 0.0-0.3 Automated blood basophil count (count/volume) 0.0 10*3/uL 0.0-0.1 Blood lactic acid measurement (moles/volume) - 03/18/18 21:20 Blood lactic acid measurement (moles/volume) 1.67 mmol/L 0.50-2.00 Streptococcus pyogenes antigen detection - 03/18/18 21:20 Streptococcus pyogenes antigen detection NEGATIVE NEGATIVE PT panel in platelet poor plasma by coagulation assay - 03/18/18 21:20 Prothrombin time (PT) in platelet poor plasma by coagulation assay 14.3 s 12.2-14.7 INR in platelet poor plasma or blood by coagulation assay 1.1 0.8-1.4 Activated partial thromboplastin time (aPTT) in platelet poor plasma bycoagulation assay - 03/18/18 21:20 Activated partial thromboplastin time (aPTT) in platelet poor plasma bycoagulation assay 27 s 24-35 Comprehensive metabolic panel - 03/18/18 21:20 Serum or plasma sodium measurement (moles/volume) 135 mmol/L 135-145 Serum or plasma potassium measurement (moles/volume) 3.9 mmol/L 3.6-5.0 Serum or plasma chloride measurement (moles/volume) 100 mmol/L 98-107 Carbon dioxide 23 mmol/L 21-32 Serum or plasma anion gap determination (moles/volume) 12 mmol/L 5-14 Serum or plasma urea nitrogen measurement (mass/volume) 21 mg/dL 7-18 Serum or plasma creatinine measurement (mass/volume) 1.30 mg/dL 0.60-1.30 Serum or plasma urea nitrogen/creatinine mass ratio 16 NRG Serum or plasma creatinine measurement with calculation of estimated glomerular filtration rate 54 NRG Serum or plasma glucose measurement (mass/volume) 175 mg/dL 70-105 Serum or plasma calcium measurement (mass/volume) 9.2 mg/dL 8.5-10.1 Serum or plasma total bilirubin measurement (mass/volume) 0.6 mg/dL 0.1-1.0 Serum or plasma alkaline phosphatase measurement (enzymatic activity/volume) 68 U/L 40-136 Serum or plasma aspartate aminotransferase measurement (enzymatic activity/ volume) 24 U/L 5-34 Serum or plasma alanine aminotransferase measurement (enzymatic activity/volume ) 24 U/L 0-55 Serum or plasma protein measurement (mass/volume) 7.5 g/dL 6.4-8.2 Serum or plasma albumin measurement (mass/volume) 4.2 g/dL 3.2-4.5 CALCIUM CORRECTED 9.0 mg/dL 8.5-10.1 Complete urinalysis with reflex to culture - 03/18/18 23:10 Urine color determination YELLOW NRG Urine clarity determination CLEAR NRG Urine pH measurement by test strip 5 5-9 Specific gravity of urine by test strip 1.020 1.016- 1.022 Urine protein assay by test strip, semi-quantitative 1+ NEGATIVE Urine glucose detection by automated test strip NEGATIVE NEGATIVE Erythrocytes detection in urine sediment by light microscopy 4+ NEGATIVE Urine ketones detection by automated test strip NEGATIVE NEGATIVE Urine nitrite detection by test strip NEGATIVE NEGATIVE Urine total bilirubin detection by test strip NEGATIVE NEGATIVE Urine urobilinogen measurement by automated test strip (mass/volume) NORMAL NORMAL Urine leukocyte esterase detection by dipstick 1+ NEGATIVE Automated urine sediment erythrocyte count by microscopy (number/high power field) [HPF] NRG Automated urine sediment leukocyte count by microscopy (number/high power field ) [HPF] NRG Bacteria detection in urine sediment by light microscopy MODERATE NRG Squamous epithelial cells detection in urine sediment by light microscopy 0-2 NRG Crystals detection in urine sediment by light microscopy NONE NRG Casts detection in urine sediment by light microscopy PRESENT NRG Mucus detection in urine sediment by light microscopy NEGATIVE NRG Complete urinalysis with reflex to culture NO NRG Hyaline casts detection in urine sediment by light microscopy 2-5 NRG Encounters ACCT No. Visit Date/Time Discharge Status Pt. Type Provider Facility Loc./Unit Complaint [id number] 01/19/2018 13:49:00 01/19/2018 23:59:59 CLS Outpatient AURE JONES MD [facility] ONC [id number] 11/11/2017 06:43:00 11/11/2017 13:15:00 DIS Outpatient KIKI ROWE MD [facility] CARD MELANOMA [id number] 11/09/2017 08:06:00 11/09/2017 23:59:59 CLS Outpatient SKYLA RUTH [facility] LAB I10 E78.2 [id number] 11/09/2017 05:39:00 11/09/2017 10:52:00 DIS Outpatient KIKI ROWE MD [facility] PREOP MELANOMA [id number] 11/02/2017 10:49:00 11/03/2017 16:50:00 DIS Outpatient AURE JONES MD [facility] ONC [id number] 10/31/2017 07:42:00 10/31/2017 23:59:59 CLS Outpatient AURE JONES MD [facility] RAD R93.2 ABN PET SCAN OF LIVER [id number] 10/29/2017 07:31:00 10/29/2017 23:59:59 CLS Outpatient AURE JONES MD [facility] RAD R93.2 ABN PET SCAN OF LIVER [id number] 10/28/2017 07:15:00 10/28/2017 23:59:59 CLS Outpatient AURE JONES MD [facility] RAD R93.2 ABN PET SCAN OF LIVER [id number] 10/24/2017 11:07:00 10/24/2017 16:57:00 DIS Outpatient KIKI ROWE MD [facility] ENDO PERSONAL HX MELANOMA /ABNORMAL PET SCAN/SCREENING [id number] 10/21/2017 09:45:00 10/21/2017 09:57:00 DIS Outpatient KIKI ROWE MD [facility] PREOP COLONOSCOPY [id number] 10/19/2017 11:50:00 10/19/2017 23:59:59 CLS Preadmit AURE JONES MD [facility] RAD R29.91 ABN LEG FINDING [id number] 10/18/2017 08:25:00 10/18/2017 23:59:59 CLS Outpatient KIKI ROWE MD [facility] RAD MELANOMA LT FOREARM METASTATIC LYMPH NODULES [id number] 10/07/2017 07:18:00 10/07/2017 15:37:00 DIS Outpatient KIKI ROWE MD [facility] SDC MELANOMA LEFT FOREARM [id number] 10/06/2017 07:47:00 10/06/2017 23:59:59 CLS Outpatient KIKI ROWE MD [facility] RAD NODED NODULE LT THYROID [id number] 10/05/2017 05:33:00 10/05/2017 12:49:00 DIS Outpatient KIKI ROWE MD [facility] PREOP MELANOMA LEFT FOREARM [id number] 09/30/2017 07:46:00 09/30/2017 23:59:59 CLS Outpatient AURE JONES MD [facility] RAD MELANOMA [id number] 05/04/2017 11:21:00 05/04/2017 19:28:00 DIS Outpatient TIERRA MARIN MD [facility] CATH ABN STRESS TEST, HTN [id number] 04/27/2017 06:53:00 04/27/2017 23:59:59 CLS Outpatient TIERRA MARIN MD [facility] CARD HYPERTENSIVE DISORDER I10 [id number] 11/24/2016 07:33:00 11/24/2016 23:59:59 CLS Outpatient TIERRA MARNI MD [facility] CARD I10 HYPERTENSIVE DISORDER [id number] 11/16/2016 07:22:00 11/16/2016 23:59:59 CLS Outpatient TIERRA MARIN MD [facility] RAD I10 HYPERTENSIVE DISORDER [id number] 06/10/2016 06:01:00 06/10/2016 08:55:00 DIS Emergency TERRY HENRY MD [facility] ER CP [id number] 10/01/2015 10:45:00 12/23/2015 00:01:00 DIS Outpatient KATELYNN SALAS MD [facility] ONC [id number] 11/10/2015 10:12:00 11/10/2015 23:59:59 CLS Outpatient FRANCISCO LUNA MD [facility] HH POSSIBLE UTI [id number] 10/21/2015 13:20:00 10/28/2015 12:38:00 DIS Inpatient DANNA LAWS MD [facility] IRF IRF [id number] 10/17/2015 22:34:00 10/21/2015 13:28:00 DIS Inpatient JYOTHI NEWELL MD [facility] 4TH RLL PNEUMONIA [id number] 10/16/2015 08:08:00 10/16/2015 14:30:00 DIS Outpatient JYOTHI NEWELL MD [facility] SDC RIGHT INGUINAL HERNIA [id number] 04/16/2015 10:38:00 07/08/2015 00:01:00 DIS Outpatient KATELYNN SALAS MD [facility] ONC [id number] 10/16/2014 10:44:00 10/22/2014 00:01:00 DIS Outpatient KATELYNN SALAS MD [facility] ONC [id number] 01/07/2014 12:54:00 03/24/2014 00:01:00 DIS Outpatient KATELYNN SALAS MD [facility] ONC [id number] 07/09/2013 13:25:00 09/30/2013 00:01:00 DIS Outpatient KATELYNN SALAS MD [facility] ONC [id number] 01/22/2013 13:57:00 04/10/2013 00:01:00 DIS Outpatient KATELYNN SLAAS MD [facility] ONC [id number] 02/13/2013 16:16:00 02/13/2013 23:59:59 CLS Outpatient [id number] 03/19/2018 00:10:00 ACT Inpatient ARON JIMENEZ, MARCI An [facility] 4TH PNEUMONIA,HEMATURIA [id number] 03/16/2018 12:40:00 ACT Outpatient AURE JONES MD [facility] ONC [id number] 07/13/2012 11:35:00 Document Registration [id number] 03/14/2012 09:09:00 Document Registration [id number] 01/19/2012 09:59:00 Document Registration [id number] 01/12/2012 09:51:00 Document Registration [id number] 07/20/2011 13:00:00 Document Registration [id number] 07/20/2011 10:39:00 Document Registration [id number] 04/20/2011 12:55:00 Document Registration [id number] 04/06/2011 14:07:00 Document Registration [id number] 12/08/2010 12:28:00 Document Registration [id number] 12/07/2010 12:41:00 Document Registration [id number] 08/26/2010 08:33:00 Document Registration [id number] 12/16/2009 17:38:00 Document Registration [id number] 04/09/2015 10:56:12 ACT Document Registration
[2018-03-19] MEDS ORDERED: KETOROLAC 30 MG/ML VIAL IVP ONE (01:00)
[2018-03-19] MEDS ORDERED: ONDANSETRON 4 MG/2 ML (SDV) Z0FRAN IV PRN (01:45)
[2018-03-19] MEDS ORDERED: AZITHROMYCIN 500 MG/NS 250 ML IVPB IV ONE ×2 (01:45)
[2018-03-19] MEDS: 1/2 NS W/KCL 20 MEQ/L 1,000 ML IV SCH ×3 (02:08→21:33)
[2018-03-19] MEDS ORDERED: RT-ALBUTEROL/IPRATROPIUM 3 ML (DUONEB) VIAL INH PRN (03:00)
[2018-03-19 05:32] LABS: BASOPHILS % (AUTO) 0 % (0-10); EOSINOPHILS % (AUTO) 0 % (0-10); HEMATOCRIT 34 % (40-54); HEMOGLOBIN 11.6 G/DL (13.3-17.7); LYMPHOCYTES # (AUTO) 0.3 X 10^3 (1.0-4.0); LYMPHOCYTES % (AUTO) 4 % (12-44); MEAN CORPUSCULAR HEMOGLOBIN 29 PG (25-34); MEAN CORPUSCULAR HGB CONC 34 G/DL (32-36); MEAN CORPUSCULAR VOLUME 85 FL (80-99); MEAN PLATELET VOLUME 9.7 FL (7.4-10.4); MONOCYTES # (AUTO) 0.2 X 10^3 (0.0-1.0); MONOCYTES % (AUTO) 3 % (0-12); NEUTROPHILS # (AUTO) 6.5 X 10^3 (1.8-7.8); NEUTROPHILS % (AUTO) 94 % (42-75); PLATELET COUNT 206 10^3/uL (130-400); RED BLOOD COUNT 3.95 10^6/uL (4.35-5.85); RED CELL DISTRIBUTION WIDTH 13.2 % (10.0-14.5)
[2018-03-19 05:52] LABS: CALCIUM 8.4 MG/DL (8.5-10.1); CREATININE SERUM 1.19 MG/DL (0.60-1.30); POTASSIUM 3.4 MMOL/L (3.6-5.0)
[2018-03-19 06:48] LABS: BAND NEUTROPHILS 3 %; LYMPHOCYTES % (MANUAL) 2 %; MONOCYTES % (MANUAL) 2 %; NEUTROPHILS % (MANUAL) 93 %
[2018-03-19] MEDS: RT-ALBUTEROL/IPRATROPIUM 3 ML (DUONEB) VIAL INH SCH ×5 (07:22→22:15)
[2018-03-19] MEDS: ACETAMINOPHEN 500 MG TAB (TYLENOL) PO PRN ×2 (08:10→15:59)
--- NOTE | 2018-03-19 10:22 | Diagnostic Imaging Report ---
Indication: Cough. Comparison: 03/18/2018. Findings: Right perihilar opacities have improved. No pleural effusion or pneumothorax. Normal heart size. Tortuous aorta. Stable right IJ Port-A-Cath. Impression: Improvement in right perihilar hazy opacities. Dictated by: Dictated on workstation # [id number]
--- NOTE | 2018-03-19 11:29 | History & Physical-Hospitalist ---
History of Present Illness HPI/Chief Complaint This is a 77-year-old white male known to me. He evidently has been having increased confusion not feeling well and difficulty voiding for the last week or so. He had seen Dr. Bernal and been started on sulfa but then there is the possibility that he is feeling better so he had discontinued. He is been found to have some blood in his urine but his mental status has continued to deteriorate overnight where he is difficult to arouse this morning. He remains febrile but without an elevated white count. He does have a history of malignant melanoma and has been undergoing immunotherapy by Dr. King. In addition he has a history of squamous cell carcinomas of the skin. I'm unable to arouse him except to stimuli but he won't answer questions and follows quickly to sleep. He has been a very active man and spends a lot of time outside so tickborne illnesses versus encephalitis from mosquito factors is also a possibility Source: family Exam Limitations: clinical condition Date Seen 03/19/18 Time Seen by Provider: 10:30 Attending Physician Love Medeiros MD PCP Radha Bernal MD Referring Physician Date of Admission Mar 19, 2018 at 00:10 Home Medications & Allergies Home Medications Reviewed patient Home Medication Reconciliation performed by pharmacy medication reconciliations chemical laboratory technician and/or nursing. Patients Allergies have been reviewed. Allergies Allergies Coded Allergies No Known Drug Allergies (Unverified11/09/17) Past [id number]-[id number]-[id number] Hx Past Med/Social Hx: Reviewed Nursing Past Med/Soc Hx Patient Social History Marrital Status: Employed/Student: retired Alcohol Use: Denies Use Recreational Drug Use: No Smoking Status: Former Smoker Former Smoker, Quit: May 04, 1977 Type Used: Cigarettes Physical Abuse Screen: No Sexual Abuse: No Recent Foreign Travel: No Contact w/other who traveled: No Recent Hopitalizations: No Recent Infectious Disease Expo: No Immunizations Up To Date Tetanus Booster (TDap): Unknown Date of Pneumonia Vaccine: Apr 19, 2016 Date of Influenza Vaccine: Apr 20, 2017 Seasonal Allergies Seasonal Allergies: Yes Past Medical History Surgeries: Prostatectomy Cardiac: Hypertension Reproductive: No Sexually Transmitted Disease: No HIV/AIDS: No Genitourinary: Prostate Problems Gastrointestinal: Chronic Constipation Musculoskeletal: Degenerate Disk Disease, Arthritis HEENT: Cataract Loss of Vision: Denies Hearing Impairment: Denies Cancer: Bladder, Prostate Did You Recieve Any Treatments: Yes What Type of Treatment Did You: Radiation, Surgical Intervention History of Blood Disorders: No Adverse Reaction to Blood Nguyen: No (N/A) Family History No Pertinent Family Hx Review of Systems ROS-Unable to Obtain: Patient unresponsive Constitutional: no symptoms reported Genitourinary: hematuria Physical Exam Physical Exam Vital Signs Vital Signs - First Documented 03/18/18 03/19/18 03/19/18 19:21 01:00 07:24 Temp 103.2 Pulse 68 Resp 16 B/P (MAP) 122/50 (74) Pulse Ox 95 O2 Delivery Room Air O2 Flow Rate 2.00 Capillary Refill : Less Than 3 Seconds Height, Weight, BMI Height: 5'9.00" Weight: 188lbs. 0.0oz. 85.707568vh; 27.8 BMI Method:Stated General Appearance: Chronically ill HEENT: Other (Dry oral mucosa) Neck: Limited Range of Motion Respiratory: Chest Non Tender, Lungs Clear, Normal Breath Sounds, No Accessory Muscle Use, No Respiratory Distress Cardiovascular: Regular Rate, Rhythm, No Gallop, Normal Peripheral Pulses Gastrointestinal: Normal Bowel Sounds, No Organomegaly, No Pulsatile Mass, Non Tender, Soft Extremity: Normal Range of Motion, Non Tender, No Calf Tenderness Neurologic/Psychiatric: Other (Hypersomnolent arousable only to noxious stimuli ) Skin: Warm/Dry, Erythema Results Results/Procedures Labs Laboratory Tests 03/18/18 21:20 03/19/18 05:20 Patient resulted labs reviewed. Imaging: Reviewed Imaging Report Assessment/Plan Admission Diagnosis Fever with a change in mental status and a history of malignant melanoma, white count is normal we'll obtain a CT head. In addition we'll add vancomycin to Rocephin and Zithromax. Chest x-ray showed possible infiltrate we'll check an ABG Mental status change possibly related to sepsis Recent history of malignant melanoma-on immunotherapy Hematuria History cancer the prostate remote Admission Status: Inpatient Order (span 2 midnights) Reason for Inpatient Admission: Patient with multiple comorbidities and critically ill. Clinical Quality Measures DVT/VTE Risk/Contraindication: Risk Factor Score Per Nursin RFS Level Per Nursing on Admit: 2=Moderate Copy Copies To 1: RADHA BERNAL MD, KATHLEEN M MD Mar 19, 2018 11:29
[2018-03-19] MEDS ORDERED: VANCOMYCIN INJECTION 1,750 MG in NS IV 500 ML 500 ML IV NR (11:30)
[2018-03-19] MEDS ORDERED: NS 250 ML (IVPB) BAG IV ONE (12:30)
[2018-03-19] MEDS ORDERED: CATHETER FLUSH 10 ML SYR IV PRN (12:30)
[2018-03-19] MEDS ORDERED: IOHEXOL 350 MG/ML 100 ML (OMNIPAQUE 350) VIAL IV ONE (12:30)
[2018-03-19] MEDS ORDERED: RECEIVED CONTRAST (Hold Metformin) IV SCH (12:45)
[2018-03-19] MEDS: KETOROLAC 15 MG/ML VIAL IV PRN ×2 (12:54→21:32)
[2018-03-19 13:02] LABS: ABG BASE EXCESS -3.6 MMOL/L (-2.5-2.5); ABG OXYGEN SATURATION 96 % (94-100); ABG PCO2 38 MMHG (35-45); ABG PH 7.36 (7.37-7.43); ABG PO2 87 MMHG (79-93); ABG TCO2 21.7 MMOL/L (21.0-31.0)
[2018-03-19 13:03] LABS: ALLENS TEST YES-POS; INSPIRED O2 2L; PATIENT TEMP 101.1; VENTILATOR NO
[2018-03-19] MEDS: cefTRIAXone 1 GM/NS 50 ML IVPB IV SCH ×2 (21:33)
[2018-03-20] VITALS: BP 118/57
[2018-03-20] MEDS: RT-ALBUTEROL/IPRATROPIUM 3 ML (DUONEB) VIAL INH SCH ×6 (02:40→23:01)
[2018-03-20] MEDS: ACETAMINOPHEN 500 MG TAB (TYLENOL) PO PRN ×2 (03:45→12:33)
[2018-03-20 04:10] VITALS: BP 127/63
[2018-03-20 06:43] LABS: BASOPHILS % (AUTO) 0 % (0-10); EOSINOPHILS % (AUTO) 0 % (0-10); HEMATOCRIT 29 % (40-54); HEMOGLOBIN 9.8 G/DL (13.3-17.7); LYMPHOCYTES # (AUTO) 0.5 X 10^3 (1.0-4.0); LYMPHOCYTES % (AUTO) 14 % (12-44); MEAN CORPUSCULAR HEMOGLOBIN 29 PG (25-34); MEAN CORPUSCULAR HGB CONC 34 G/DL (32-36); MEAN CORPUSCULAR VOLUME 85 FL (80-99); MEAN PLATELET VOLUME 9.9 FL (7.4-10.4); MONOCYTES # (AUTO) 0.2 X 10^3 (0.0-1.0); MONOCYTES % (AUTO) 5 % (0-12); NEUTROPHILS # (AUTO) 2.7 X 10^3 (1.8-7.8); NEUTROPHILS % (AUTO) 81 % (42-75); PLATELET COUNT 175 10^3/uL (130-400); RED BLOOD COUNT 3.38 10^6/uL (4.35-5.85); RED CELL DISTRIBUTION WIDTH 13.7 % (10.0-14.5); WHITE BLOOD COUNT 3.3 10^3/uL (4.3-11.0)
[2018-03-20 07:00] LABS: ALANINE AMINOTRANSFERASE 118 U/L (0-55); ALBUMIN 2.8 GM/DL (3.2-4.5); ALKALINE PHOSPHATASE 56 U/L (40-136); BILIRUBIN,TOTAL 0.4 MG/DL (0.1-1.0); BUN/CREATININE RATIO 21; CARBON DIOXIDE 20 MMOL/L (21-32); CHLORIDE 110 MMOL/L (98-107); CREATININE SERUM 0.91 MG/DL (0.60-1.30); GFR ESTIMATED > 60; GLUCOSE 103 MG/DL (70-105); POTASSIUM 3.5 MMOL/L (3.6-5.0); SODIUM 136 MMOL/L (135-145); TOTAL PROTEIN 4.9 GM/DL (6.4-8.2)
[2018-03-20 08:00] VITALS: BP 168/78
[2018-03-20] MEDS: 1/2 NS W/KCL 20 MEQ/L 1,000 ML IV SCH ×2 (08:07→17:59)
[2018-03-20] MEDS: AZITHROMYCIN 250 MG TAB (ZITHROMAX) PO SCH (08:08)
[2018-03-20] MEDS: KETOROLAC 15 MG/ML VIAL IV PRN (08:14)
[2018-03-20] MEDS ORDERED: FURO40TA4 PO (10:38)
[2018-03-20] MEDS ORDERED: CETI-214 PO (10:38)
[2018-03-20] MEDS ORDERED: OMG1KC PO (10:38)
[2018-03-20] MEDS ORDERED: ONDA8TAB13 PO (10:38)
[2018-03-20] MEDS ORDERED: CELE-63 PO (10:39)
[2018-03-20] MEDS ORDERED: ASPI-983 PO (10:40)
[2018-03-20] MEDS ORDERED: FISH1CAP15 PO (10:49)
[2018-03-20] MEDS ORDERED: VANCOMYCIN 1250 MG/NS 250 ML IVPB IV SCH ×2 (11:30)
[2018-03-20 12:00] VITALS: BP 138/65
--- NOTE | 2018-03-20 12:35 | Progress Note-Hospitalist ---
Subjective HPI/CC On Admission Date Seen by Provider: Mar 20, 2018 Time Seen by Provider: 12:30 This is a 77-year-old white male known to me. He evidently has been having increased confusion not feeling well and difficulty voiding for the last week or so. He had seen Dr. Ramsey and been started on sulfa but then there is the possibility that he is feeling better so he had discontinued. He is been found to have some blood in his urine but his mental status has continued to deteriorate overnight where he is difficult to arouse this morning. He remains febrile but without an elevated white count. He does have a history of malignant melanoma and has been undergoing immunotherapy by Dr. King. In addition he has a history of squamous cell carcinomas of the skin. I'm unable to arouse him except to stimuli but he won't answer questions and follows quickly to sleep. He has been a very active man and spends a lot of time outside so tickborne illnesses versus encephalitis from mosquito factors is also a possibility Subjective/Events-last exam Pt reports feeling much better today. Confusion improved. He is having some chills now though and would like a warm blanket. Focused Exam Lactate Level 03/18/18 21:20: Lactic Acid Level 1.67 Objective Exam Vital Signs Vital Signs Date Time Temp Pulse Resp B/P (MAP) Pulse Ox O2 Delivery O2 Flow Rate FiO2 03/21/18 10:44 98 Room Air 03/21/18 04:00 99.2 63 16 173/77 (109) 03/20/18 02:40 2.00 03/19/18 02:46 21 Capillary Refill : Less Than 3 Seconds General Appearance: No Apparent Distress, WD/WN Respiratory: Lungs Clear, No Respiratory Distress Cardiovascular: Regular Rate, Rhythm, No Murmur Gastrointestinal: Normal Bowel Sounds, Soft Neurologic/Psychiatric: Alert, Oriented x3 Results/Procedures Lab Laboratory Tests 03/21/18 06:27 Patient resulted labs reviewed. Imaging: Reviewed Imaging Report Assessment/Plan Assessment and Plan Assess & Plan/Chief Complaint Pneumonia Diagnosis/Problems Diagnosis/Problems (1) Pneumonia Status: Acute Assessment & Plan: Continue on current antibiotics Cultures show no growth Qualifiers: Pneumonia type: due to unspecified organism Laterality: right Lung location: middle lobe of lung Qualified Codes: J18.1 - Lobar pneumonia, unspecified organism (2) MELANOMA Assessment & Plan: Follows with Dr King Mildly leukopenic Will consult heme/onc Discussed with Dr Seymour (3) Hypertension Status: Acute Assessment & Plan: Somewhat labile Trend Qualifiers: Hypertension type: essential hypertension Qualified Codes: I10 - Essential (primary) hypertension (4) Leukopenia Status: Acute Assessment & Plan: Mild, trend Qualifiers: Leukopenia type: unspecified Qualified Codes: D72.819 - Decreased white blood cell count, unspecified Clinical Quality Measures DVT/VTE Risk/Contraindication: Risk Factor Score Per Nursin RFS Level Per Nursing on Admit: 2=Moderate MATEO ANDERSON MD Mar 20, 2018 12:35 pm
--- NOTE | 2018-03-20 13:05 | Diagnostic Imaging Report ---
PROCEDURE: CT head with and without contrast. TECHNIQUE: Multiple contiguous axial images were obtained through the brain before and after the administration of intravenous contrast. INDICATION: Altered mental status. COMPARISON: 01/11/2008. FINDINGS: No parenchymal hemorrhage, midline shift, or mass effect. Barrios-white matter differentiation is adequately preserved, without evidence of acute infarct. Unchanged scattered periventricular and subcortical white matter hypodensities are compatible with chronic microangiopathic ischemic change. Mild prominence of the ventricles and sulci is consistent with age-related cortical cerebral and cerebellar parenchymal volume loss. No enhancing lesion is demonstrated on postcontrast images. No calvarial lesion or fracture. The visualized orbits, globes, and paranasal sinuses are normal. The extracranial soft tissues are unremarkable. IMPRESSION: No acute intracranial pathology. Chronic changes consisting of age-related volume loss and nonspecific white matter changes most commonly related to microangiopathic small vessel ischemic change. No significant change from prior. Dictated by: Dictated on workstation # [id number]
--- NOTE | 2018-03-20 14:18 | Physical Therapy Evaluation ---
PT Evaluation-General Medical Diagnosis Admission Date Mar 19, 2018 at 00:10 Medical Diagnosis: pneumonia; hematuria Onset Date: Mar 19, 2018 Therapy Diagnosis Therapy Diagnosis: weakness; abn gait Height/Weight Height (Feet): 5 Height (Inches): 9.00 Weight (Pounds): 188 Weight (Ounces): 0.0 Precautions Precautions/Isolations: Fall Prevention, Standard Precautions Weight Bear Status Right Lower Extremity: Right Weight Bearing/Tolerated Left Lower Extremity: Left Weight Bearing/Tolerated Referral Physician: Kassidy Medical History Pertinent Medical History: Arthritis, Back Injury, HTN Additional Medical History skin CA Current History Admitted with increasing confusion and hematuria Reviewed History: Yes Social History Home: Single Level Current Living Status: Alone Prior/Core FIM Prior Level of Function Functional [place] Measure 0=Not Assessed/NA 4=Minimal Assistance 1=Total Assistance 5=Supervision or Setup 2=Maximal Assistance 6=Modified [place] 3=Moderate Assistance 7=Complete [place] Bed Mobility: 6 Transfers (B,C,W/C) (FIM): 6 Gait: 6 PT Evaluation-Current Subjective Pt reports he feels weak. Agreeable to get up with this therapist. Pain Numeric Pain Scale: 0-No Pain Location: No Pain Reported Objective Patient Orientation: Person, Confused (slight), Place Problem Solving: Fair Attachments: IV ROM/Strength ROM Lower Extremities WFL Strength Lower Extremities groslly 4-/5 throughout Integumentary/Posture Integumentary refer to nursing note.s Bowel Incontinence: No Bladder Incontinence: No Posture rounded shoulders and forward flexed at hips in standing. Neuromuscular (Tone, Coordination, Reflexes) functional Sensory Vision: Wears Glasses Hearing: Functional Hand Dominance: Right Sensation Right Lower Extremit: Intact Sensation Left Lower Extremity: Intact Transfers Functional [place] Measure 0=Not Assessed/NA 4=Minimal Assistance 1=Total Assistance 5=Supervision or Setup 2=Maximal Assistance 6=Modified [place] 3=Moderate Assistance 7=Complete [place] Pt able to stand up with min assist and heavy cues for sequencing, hand placement and task segmentation. Pt required cues for scooting forward in chair and then to push up from the chair. Gait Mode of Locomotion: Walk Anticipated Mode of Locomotion: Walk Gait (FIM): 2 Distance (FIM): 1=up to 49 ft Distance: 30 ft Gait Level of Assist: 4 (CGA with skilled cues for posture and step length) Gait Assistive Device: FWW Comments/Gait Description forward flexed at hips, short step length and limited foot clearance. Balance Sitting Static: Good Sitting Dynamic: Good Standing Static: Fair Standing Dynamic: Fair Treatment Pt ambulated with FWW with CGA and cues for safety and posture as well as gait pattern. Assessment/Needs Pt presents with gross functional weakness and impaired functional mobility. He will beneift from skilled PT intervention to work on mobiolity, strength and safety to allow him to return home as before. 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 Goals Mcc Goals PT Mcc Goals Time Frame: Mar 27, 2018 Transfers (B,C,W/C) (FIM): 6 Gait (FIM): 6 Gait distance (FIM): 3=150 ft Gait Assistive Device: FWW PT Plan Problem List Problem List: Activity Tolerance, Functional Strength, Safety, Balance, Gait, Transfer, Bed Mobility Treatment/Plan Treatment Plan: Continue Plan of Care Treatment Plan: Bed Mobility, Education, Functional Activity Abdulkadir, Functional Strength, Gait, Safety, Therapeutic Exercise, Transfers Treatment Duration: Mar 27, 2018 Frequency: 6 times per week Estimated Hrs Per Day: .25 hour per day Patient and/or Family Agrees t: Yes Safety Risks/Education Patient Education: Transfer Techniques, Safety Issues Teaching Recipient: Patient Teaching Methods: Demonstration, Discussion Response to Teaching: Reinforcement Needed Time/GCodes Time In: 1400 Time Out: 1420 Total Billed Treatment Time: 20 Total Billed Treatment visit EVM 20 KRUPA ACKERMAN PT Mar 20, 2018 14:18
--- NOTE | 2018-03-20 14:28 | Oncology Consultation ---
Visit Information Visit Information Date of Admission Mar 19, 2018 at 00:10 Attending Physician Love Medeiros MD Admitting Physician Damian Ramsey MD Chief Complaint fever, pneumonia and malignant melanoma, low WBC Interval History Mr. Burgess is a 77 year old white man with diagnosis of [id number] of the left arm, stage IIID, BRAF negative malignant melanoma under the care of Dr King. Dr King hold off his Opdivo treatment 2 weeks ago due to lethargic and low BP. Pt was brought to ER over the weekend because of increasing lethargy and difficulty to arouse. He was found to have pneumonia and hematuria at ER and admitted for IV antibiotics, Rocephin, Vanco and Zithromax. He spike fever 104 last night. Blood culture obtained. He is better now. He is more awake and able to communicate with me without any problem. His only complaint now is the right low abdominal aching sometimes. He thinks he pulled his muscle in that area and he also had hernia repair at that area in the past. He dose not think he needs to take any pain medication for this. PMH: 1. Invasive melanoma left forearm, [id number], stage IIID, BRAF negative. The three sites of hypermetabolism on PET scan, including liver, left knee and cecum , were negative for metastatic disease on MRI and colonoscopy. MRI brain was also negative for metastatic disease. Completion axillary dissection was positive for 7/12 lymph nodes. Started adjuvant immunotherapy with nivolumab on 11/23/17. Completed 8 cycles. Since patient is feeling poorly, we will defer cycle 9 to two weeks from now. 2. MGUS. SPEP on 10/19/17 shows decreased paraproteins, and free light chains continue to be negative. I consulted the patient on: 03/20/18 14:27 Time Seen by Provider: 14:45 Review of Systems Constitutional: weakness Respiratory: cough Cardiovascular: no symptoms reported Gastrointestinal: no symptoms reported Genitourinary: dysuria Psychiatric/Neurological: See HPI Health Status Allergies Coded Allergies: No Known Drug Allergies (Unverified , 11/09/17) Home Medications Amlodipine Besylate (Amlodipine Besylate) 10 Mg Tablet, 10 MG PO DAILY, ( Reported) Aspirin (Aspirin EC) 81 Mg Tablet., 81 MG PO DAILY, (Reported) Celecoxib (Celecoxib) 200 Mg Capsule, 200 MG PO DAILY, (Reported) Cetirizine HCl (Allergy Relief) 10 Mg Tablet, 10 MG PO DAILY, (Reported) Docusate Sodium (Colace) 100 Mg Capsule, 200 MG PO DAILY, (Reported) TAKES 2 (100MG) CAPSULES Fish Oil/Dha/Epa (Fish Oil 1,200 mg Fish Oil) 1 Each Capsule, 2,400 MG PO DAILY, (Reported) Furosemide (Furosemide) 40 Mg Tablet, 40 MG PO DAILY, (Reported) Lisinopril (Lisinopril) 20 Mg Tablet, 20 MG PO HS, (Reported) Nebivolol HCl (Bystolic) 10 Mg Tab, 10 MG PO DAILY, (Reported) Ondansetron (Ondansetron Odt) 8 Mg Tab.rapdis, 8 MG PO BID PRN for NAUSEA/ VOMITING-1ST LINE, (Reported) Polyethylene Glycol 3350 (Miralax) 17 Gm Powd.pack, 17 GM PO DAILY, (Reported) RNB-Vzopot-Uuzcyi Hx Patient Social History Marrital Status: Employed/Student: retired Alcohol Use: Denies Use Recreational Drug Use: No Smoking Status: Former Smoker Former smoker/When Quit: Oct 20, 1966 Type Used: Cigarettes Recent Foreign Travel: No Contact w/other who traveled: No Recent Infectious Disease Expo: No Recent Hopitalizations: No Physical Abuse Screen: No Sexual Abuse: No Immunizations Up To Date Tetanus Booster (TDap): Unknown Date of Pneumonia Vaccine: Apr 19, 2016 Date of Influenza Vaccine: Apr 20, 2017 Family Medical History Significant Family History: No Pertinent Family Hx Physical Exam Vital Signs Vital Signs - First Documented 03/18/18 03/19/18 03/19/18 19:21 01:00 07:24 Temp 103.2 Pulse 68 Resp 16 B/P (MAP) 122/50 (74) Pulse Ox 95 O2 Delivery Room Air O2 Flow Rate 2.00 Capillary Refill : Less Than 3 Seconds Height, Weight, BMI Height: 5'9.00" Weight: 188lbs. 0.0oz. 85.111364an; 27.8 BMI Method:Stated General Appearance: No Apparent Distress, WD/WN HEENT: PERRL/EOMI Neck: Non Tender, Supple Respiratory: Chest Non Tender, Lungs Clear, No Accessory Muscle Use, No Respiratory Distress Cardiovascular: Regular Rate, Rhythm, No Edema, No JVD Gastrointestinal: Non Tender, Soft, Distended Extremity: Non Tender, No Calf Tenderness, No Pedal Edema, Other (scars over left upper ext. ) Neurologic/Psychiatric: Alert, Oriented x3, Normal Mood/Affect Data Review Labs Laboratory Tests 03/21/18 06:27 Laboratory Tests 03/18/18 21:20: Red Blood Count 4.16L, Hemoglobin 12.0L, Hematocrit 35L, Neutrophils (%) (Auto) 87H, Lymphocytes (%) (Auto) 9L, Lymphocytes # (Auto) 0.5L, Blood Urea Nitrogen 21H, Glucose Level 175H 03/18/18 23:10: Urine Protein 1+H, Urine Leukocyte Esterase 1+H, Urine RBC (Auto) 4+H, Urine RBC 50-100H, Urine Bacteria MODERATEH, Urine Hyaline Casts 2-5H 03/19/18 00:10: 03/19/18 05:20: Red Blood Count 3.95L, Hemoglobin 11.6L, Hematocrit 34L, Neutrophils (%) (Auto) 94H, Lymphocytes (%) (Auto) 4L, Lymphocytes # (Auto) 0.3L, Blood Urea Nitrogen 21H, Glucose Level 119H, Potassium Level 3.4L, Carbon Dioxide Level 20L, Calcium Level 8.4L 03/19/18 12:50: Arterial Blood pH 7.36L, Arterial Blood HCO3 21L, Arterial Blood Base Excess - 3.6L 03/20/18 06:15: White Blood Count 3.3L, Red Blood Count 3.38L, Hemoglobin 9.8L, Hematocrit 29L, Neutrophils (%) (Auto) 81H, Lymphocytes # (Auto) 0.5L, Potassium Level 3.5L, Chloride Level 110H, Carbon Dioxide Level 20L, Blood Urea Nitrogen 19H, Calcium Level 8.0L, Aspartate Amino Transf (AST/SGOT) 155H, Alanine Aminotransferase ( ALT/SGPT) 118H, B-Type Natriuretic Peptide 174.4H, Total Protein 4.9L, Albumin 2.8L 03/21/18 06:27: White Blood Count 2.9L, Red Blood Count 3.32L, Hemoglobin 9.8L, Hematocrit 28L, Lymphocytes # (Auto) 0.6L, Chloride Level 110H, Calcium Level 8.3L, Aspartate Amino Transf (AST/SGOT) 134H, Alanine Aminotransferase (ALT/SGPT) 111H, Total Protein 5.6L, Albumin 3.0L, Glucose Level 108H 03/21/18 10:50: Vancomycin Level Trough 5.0L Impression & Plan Impression & Plan IMP: 1. Pneumonia per Xray from ER. on triple antibiotics, clinical improving 2. Mental status change, also improved 3. Leukopenia, WBC 3.5 however ANC still 2.3 in good range. 4. Fever 104 last night. Better today 5. h/o Invasive melanoma left forearm, [id number], stage IIID, BRAF negative. MRI brain was Negative for metastatic disease. Completion axillary dissection was positive for 7/12 lymph nodes. Started adjuvant immunotherapy with nivolumab on 11/23/17. Completed 8 cycles as of 02/16/18. Last dose 03/16/18 was hold off. 6. h/o MGUS. SPEP on 10/19/17 shows decreased paraproteins, and free light chains continue to be negative. Rec: 1. Agree with your current antibiotics and IVF 2. I would not add any neutrophil stimulating factor for now since his ANC is over 2 and clinical improving as of this afternoon. 3. Hold off Opdivo treatment. 4. CBC daily for next 2 days. Will f/u with you. AJ CUBA MD Mar 20, 2018 14:28
[2018-03-20] MEDS: POLYETHYLENE GLYCOL 17 GM (MIRALAX) PACK PO SCH ×2 (15:12→20:38)
[2018-03-20 15:40] VITALS: BP 133/64
[2018-03-20 19:47] VITALS: BP 157/70
[2018-03-20] MEDS: cefTRIAXone 1 GM/NS 50 ML IVPB IV SCH ×2 (20:38)
[2018-03-21] VITALS (7 sets, daily range): BP systolic 150–182; BP diastolic 64–100
[2018-03-21] MEDS: IBUPROFEN 600 MG (MOTRIN) TAB PO PRN (00:10)
[2018-03-21] MEDS: 1/2 NS W/KCL 20 MEQ/L 1,000 ML IV SCH ×2 (00:10→12:42)
[2018-03-21] MEDS: ACETAMINOPHEN 500 MG TAB (TYLENOL) PO PRN (02:13)
[2018-03-21] MEDS: RT-ALBUTEROL/IPRATROPIUM 3 ML (DUONEB) VIAL INH SCH ×5 (02:31→21:34)
[2018-03-21 06:42] LABS: BASOPHILS % (AUTO) 0 % (0-10); EOSINOPHILS % (AUTO) 0 % (0-10); HEMATOCRIT 28 % (40-54); HEMOGLOBIN 9.8 G/DL (13.3-17.7); LYMPHOCYTES # (AUTO) 0.6 X 10^3 (1.0-4.0); LYMPHOCYTES % (AUTO) 22 % (12-44); MEAN CORPUSCULAR HEMOGLOBIN 30 PG (25-34); MEAN CORPUSCULAR HGB CONC 35 G/DL (32-36); MEAN CORPUSCULAR VOLUME 84 FL (80-99); MEAN PLATELET VOLUME 10.1 FL (7.4-10.4); MONOCYTES # (AUTO) 0.2 X 10^3 (0.0-1.0); MONOCYTES % (AUTO) 5 % (0-12); NEUTROPHILS # (AUTO) 2.1 X 10^3 (1.8-7.8); NEUTROPHILS % (AUTO) 73 % (42-75); PLATELET COUNT 181 10^3/uL (130-400); RED BLOOD COUNT 3.32 10^6/uL (4.35-5.85); RED CELL DISTRIBUTION WIDTH 13.6 % (10.0-14.5); WHITE BLOOD COUNT 2.9 10^3/uL (4.3-11.0)
[2018-03-21 07:03] LABS: ALANINE AMINOTRANSFERASE 111 U/L (0-55); ALKALINE PHOSPHATASE 62 U/L (40-136); BILIRUBIN,TOTAL 0.5 MG/DL (0.1-1.0); BUN/CREATININE RATIO 16; CALCIUM 8.3 MG/DL (8.5-10.1); CARBON DIOXIDE 22 MMOL/L (21-32); CHLORIDE 110 MMOL/L (98-107); CREATININE SERUM 0.74 MG/DL (0.60-1.30); GFR ESTIMATED > 60; GLUCOSE 108 MG/DL (70-105); POTASSIUM 4.1 MMOL/L (3.6-5.0); SODIUM 138 MMOL/L (135-145); TOTAL PROTEIN 5.6 GM/DL (6.4-8.2)
--- NOTE | 2018-03-21 09:49 | Physical Therapy Daily Note ---
PT Daily Note-Current Subjective pt in bed pre tx, agrees to PT, no pain to report Appearance pt in bed post tx, w/ phone, call light, tray, all needs met Mental Status Patient Orientation: Normal For Age Attachments: IV Transfers Functional [place] Measure 0=Not Assessed/NA 4=Minimal Assistance 1=Total Assistance 5=Supervision or Setup 2=Maximal Assistance 6=Modified [place] 3=Moderate Assistance 7=Complete IndependenceIRFPAI Quality Coding Scale 6 Independent with activity with or without an assistive device 5 Patient requires set up or clean up by helper. Patient completes activity by themselves 4 Supervision or touching assist (CGA). [place] provide cues , steadying assist 3 The helper provides less than half the effort to complete the activity 2 The helper provides more than half the effort to complete the activity 1 Dependent. The helper does all the effort to complete an activity 7 Patient refused to complete or attempt activity 9 The patient did not perform the activity before the current illness or injury 88 Not attempted due to Medical conditions or safety concerns Transfers (B, C, W/C) (FIM): 3 Scootin Supine to/from Sit: 3 Sit to/from Stand: 4 supine<->sit modA, pt needs assistance getting both legs into/out of bed and sitting up, sit<->stand Josiah w/ cues to push from bed Weight Bearing Right Lower Extremity: Right Weight Bearing/Tolerated Left Lower Extremity: Left Weight Bearing/Tolerated Gait Training Gait (FIM): 1 Distance (FIM): 1=up to 49 ft Distance: 15' Gait Level of Assist: 4 Gait Persons Needed: 1 Gait Assistive Device: FWW pt ambulates w/ FWW and CGA, gait is very slow with steps only a few inches in length, but no LOB, pt states his R leg is hard to move Treatments bed mobility, transfers, ambulation Assessment Current Status: Fair Progress impaired transfers and mobility, patient was very fatigued after ambulation 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 Goals [facility] Goals PT [facility] Goals Time Frame: Mar 27, 2018 Transfers (B,C,W/C) (FIM): 6 Gait (FIM): 6 Gait distance (FIM): 3=150 ft Gait Assistive Device: FWW PT Plan Problem List Problem List: Activity Tolerance, Functional Strength, Safety, Balance, Gait, Transfer, Bed Mobility Treatment/Plan Treatment Plan: Continue Plan of Care Treatment Plan: Bed Mobility, Education, Functional Activity Abdulkadir, Functional Strength, Gait, Safety, Therapeutic Exercise, Transfers Treatment Duration: Mar 27, 2018 Frequency: 6 times per week Estimated Hrs Per Day: .25 hour per day Patient and/or Family Agrees t: Yes Safety Risks/Education Patient Education: Gait Training, Transfer Techniques, Reviewed Precautions, Correct Positioning, Safety Issues Teaching Recipient: Patient Teaching Methods: Demonstration, Discussion Response to Teaching: Reinforcement Needed Time/GCodes Time In: 914 Time Out: 929 Total Billed Treatment Time: 15 Total Billed Treatment 1 visit GT 15' GREGORIA TREVIÑO PT Mar 21, 2018 09:49
[2018-03-21] MEDS: amLODIPine 10 MG (NORVASC) TAB PO SCH (10:13)
[2018-03-21] MEDS: AZITHROMYCIN 250 MG TAB (ZITHROMAX) PO SCH (10:14)
[2018-03-21] MEDS: POLYETHYLENE GLYCOL 17 GM (MIRALAX) PACK PO SCH ×2 (10:19→20:45)
[2018-03-21] MEDS ORDERED: TROUGH ORDER-PHARMACY XX NR (10:30)
[2018-03-21] MEDS: VANCOMYCIN 1250 MG/NS 250 ML IVPB IV SCH ×4 (12:42→22:02)
--- NOTE | 2018-03-21 13:28 | Progress Note-Hospitalist ---
Subjective HPI/CC On Admission Date Seen by Provider: Mar 21, 2018 Time Seen by Provider: 09:45 This is a 77-year-old white male known to me. He evidently has been having increased confusion not feeling well and difficulty voiding for the last week or so. He had seen Dr. Ramsey and been started on sulfa but then there is the possibility that he is feeling better so he had discontinued. He is been found to have some blood in his urine but his mental status has continued to deteriorate overnight where he is difficult to arouse this morning. He remains febrile but without an elevated white count. He does have a history of malignant melanoma and has been undergoing immunotherapy by Dr. King. In addition he has a history of squamous cell carcinomas of the skin. I'm unable to arouse him except to stimuli but he won't answer questions and follows quickly to sleep. He has been a very active man and spends a lot of time outside so tickborne illnesses versus encephalitis from mosquito factors is also a possibility Subjective/Events-last exam Pt reports feeling better today but having some leg weakness on his right leg. Focused Exam Lactate Level 03/18/18 21:20: Lactic Acid Level 1.67 Objective Exam Vital Signs Vital Signs Date Time Temp Pulse Resp B/P (MAP) Pulse Ox O2 Delivery O2 Flow Rate FiO2 03/21/18 10:44 98 Room Air 03/21/18 04:00 99.2 63 16 173/77 (109) 03/20/18 02:40 2.00 03/19/18 02:46 21 Capillary Refill : Less Than 3 Seconds General Appearance: No Apparent Distress, WD/WN Respiratory: Lungs Clear, No Respiratory Distress Cardiovascular: Regular Rate, Rhythm, No Murmur Gastrointestinal: Normal Bowel Sounds, Non Tender, Soft Neurologic/Psychiatric: Alert, Oriented x3; No Sensory Deficit; Other (left upper leg weakness with flexion compared to right but dorsiflexion and plantar flexion intact, sensation intact) Results/Procedures Lab Laboratory Tests 03/21/18 06:27 Patient resulted labs reviewed. Imaging: Reviewed Imaging Report Assessment/Plan Assessment and Plan Assess & Plan/Chief Complaint Pneumonia Diagnosis/Problems Diagnosis/Problems (1) Pneumonia Status: Acute Assessment & Plan: Continue on current antibiotics Cultures show no growth Fever recurred last night Qualifiers: Pneumonia type: due to unspecified organism Laterality: right Lung location: middle lobe of lung Qualified Codes: J18.1 - Lobar pneumonia, unspecified organism (2) Right leg weakness Status: Acute Assessment & Plan: Reviewed previous images last MRI [address] Called Ortho 4 states they had no furhter imaging Attempted to call Dr Winkler who pt believed to be his surgeon but he has not seen patient since 2011 Will get MRI lumbar spine to evaluate (3) MELANOMA Assessment & Plan: Follows with Dr King Will consult heme/onc, appreciate recs (4) Hypertension Status: Acute Assessment & Plan: Trending upwards, will resume home BP meds Qualifiers: Hypertension type: essential hypertension Qualified Codes: I10 - Essential (primary) hypertension (5) Leukopenia Status: Acute Assessment & Plan: Remains leukopenic but not neutropenic Trended down somewhat today Qualifiers: Leukopenia type: unspecified Qualified Codes: D72.819 - Decreased white blood cell count, unspecified Clinical Quality Measures DVT/VTE Risk/Contraindication: Risk Factor Score Per Nursin RFS Level Per Nursing on Admit: 2=Moderate MATEO ANDERSON MD Mar 21, 2018 1:28 pm
--- NOTE | 2018-03-21 14:04 | Oncology Progress Note ---
Subjective Time Seen by a Provider: 14:00 Subjective/Events-last exam Pt was complaining right leg weakness this morning. 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 "Right lower abdomen aching is there". It has been for over a month. He has no diarrhea, no constipation. Data Review Labs Laboratory Tests 03/21/18 06:27 Laboratory Tests 03/18/18 21:20: Red Blood Count 4.16L, Hemoglobin 12.0L, Hematocrit 35L, Neutrophils (%) (Auto) 87H, Lymphocytes (%) (Auto) 9L, Lymphocytes # (Auto) 0.5L, Blood Urea Nitrogen 21H, Glucose Level 175H 03/18/18 23:10: Urine Protein 1+H, Urine Leukocyte Esterase 1+H, Urine RBC (Auto) 4+H, Urine RBC 50-100H, Urine Bacteria MODERATEH, Urine Hyaline Casts 2-5H 03/19/18 00:10: 03/19/18 05:20: Red Blood Count 3.95L, Hemoglobin 11.6L, Hematocrit 34L, Neutrophils (%) (Auto) 94H, Lymphocytes (%) (Auto) 4L, Lymphocytes # (Auto) 0.3L, Blood Urea Nitrogen 21H, Glucose Level 119H, Potassium Level 3.4L, Carbon Dioxide Level 20L, Calcium Level 8.4L 03/19/18 12:50: Arterial Blood pH 7.36L, Arterial Blood HCO3 21L, Arterial Blood Base Excess - 3.6L 03/20/18 06:15: White Blood Count 3.3L, Red Blood Count 3.38L, Hemoglobin 9.8L, Hematocrit 29L, Neutrophils (%) (Auto) 81H, Lymphocytes # (Auto) 0.5L, Potassium Level 3.5L, Chloride Level 110H, Carbon Dioxide Level 20L, Blood Urea Nitrogen 19H, Calcium Level 8.0L, Aspartate Amino Transf (AST/SGOT) 155H, Alanine Aminotransferase ( ALT/SGPT) 118H, B-Type Natriuretic Peptide 174.4H, Total Protein 4.9L, Albumin 2.8L 03/21/18 06:27: White Blood Count 2.9L, Red Blood Count 3.32L, Hemoglobin 9.8L, Hematocrit 28L, Lymphocytes # (Auto) 0.6L, Chloride Level 110H, Calcium Level 8.3L, Aspartate Amino Transf (AST/SGOT) 134H, Alanine Aminotransferase (ALT/SGPT) 111H, Total Protein 5.6L, Albumin 3.0L, Glucose Level 108H 03/21/18 10:50: Vancomycin Level Trough 5.0L Laboratory Tests 03/21/18 06:27 Physical Exam Vital Signs Vital Signs - First Documented 03/18/18 03/19/18 03/19/18 19:21 01:00 07:24 Temp 103.2 Pulse 68 Resp 16 B/P (MAP) 122/50 (74) Pulse Ox 95 O2 Delivery Room Air O2 Flow Rate 2.00 Capillary Refill : Less Than 3 Seconds Height, Weight, BMI Height: 5'9.00" Weight: 188lbs. 0.0oz. 85.447243xq; 27.8 BMI Method:Stated General Appearance: Obese, Other (having mild chills) HEENT: PERRL/EOMI Neck: Non Tender, Supple Respiratory: Lungs Clear, No Accessory Muscle Use, No Respiratory Distress Cardiovascular: Regular Rate, Rhythm, No Edema, No JVD Gastrointestinal: Non Tender, Soft, Distended Neurologic/Psychiatric: Alert, Oriented x3 Focused Exam Lactate Level 03/18/18 21:20: Lactic Acid Level 1.67 Impression & Plan Impression & Plan IMP: 1. Pneumonia per Xray from ER. on triple antibiotics, CXR showed improving. All the cultures are negative so far. 2. Mental status change, was improved. But complaining right leg weakness today. 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 3. Leukopenia and anemia. WBC lower from 3.5 to 2.9. However ANC still 2.1 in good range. ? related to infection vs autoimmune reaction 4. Fever 104 and still 103 today. Having chills. ?related to vasculitis in addition to pneumonia. 5. 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 MRI brain was Negative for metastatic disease. Completion axillary dissection was positive for 7/12 lymph nodes. Started adjuvant immunotherapy with nivolumab on 11/23/17. Completed 8 cycles as of 02/16/18. Last dose 03/16/18 was hold off. 6. h/o MGUS. SPEP on 10/19/17 shows decreased paraproteins, and free light chains continue to be negative. Rec: 1. Agree to continue the current antibiotics and IVF 2. I would not add any neutrophil stimulating factor for now since his ANC is over 2 and clinical improving as of this afternoon. 3. Hold off Opdivo treatment. 4. 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 4. CBC and CMP daily. Will f/u with you. Clinical Quality Measures DVT/VTE Risk/Contraindication: Risk Factor Score Per Nursin RFS Level Per Nursing on Admit: 2=Moderate AJ CUBA MD Mar 21, 2018 14:04
[2018-03-21] MEDS ORDERED: GADOBUTROL 10 MMOL/10 ML (GADAVIST) VIAL IV ONE (15:30)
[2018-03-21] MEDS: predniSONE 20 MG TAB PO SCH (16:07)
--- NOTE | 2018-03-21 17:32 | Diagnostic Imaging Report ---
PROCEDURE: MRI lumbar spine with and without contrast. TECHNIQUE: Multiplanar, multisequence MRI of the lumbar spine was performed with and without contrast. INDICATION: Right leg weakness. FINDINGS: There are artifacts generated by multilevel posterior fusion with bipedicular screws and vertical stabilization rods at the L2 through L5 levels with interbody fusion. The marrow itself shows no obvious marrow replacement or abnormal enhancement. There are no findings suggestive of lumbar involvement by metastatic disease. No paravertebral mass, hemorrhage, or fluid collection. There is no evidence for marrow edema. Conus appears unremarkable. There is lower thoracic and upper lumbar spondylosis with disc bulge, endplate sclerosis, and osteophytes with ligamentum thickening and facet arthrosis. The findings result in at least moderate canal stenoses at T11-T12, T12-L1, and L1-L2. At the levels of posterior fusion and laminectomy, no high-grade canal stenosis; however, at L4-L5, there is mild canal and mild degrees of biforaminal narrowing. At the L5-S1 level, disc bulge results in moderate biforaminal stenosis. IMPRESSION: 1. Lower thoracic and upper lumbar moderate canal stenoses owing to spondylosis and facet arthrosis. 2. Multilevel decompressive laminectomy with posterior and interbody fusions without fluid collection. 3. [id number] foraminal stenoses at L4-L5 and L5-S1. 4. No findings of metastatic disease. No abnormal enhancement and no marrow edema. Dictated by: Dictated on workstation # [id number]
[2018-03-21] MEDS: lisINopril 20 MG (PRINIVIL) TABLET PO SCH (19:31)
[2018-03-21] MEDS: cefTRIAXone 1 GM/NS 50 ML IVPB IV SCH ×2 (20:45)
[2018-03-22 00:35] VITALS: BP 157/75
[2018-03-22] MEDS: ACETAMINOPHEN 500 MG TAB (TYLENOL) PO PRN (01:30)
[2018-03-22] MEDS: RT-ALBUTEROL/IPRATROPIUM 3 ML (DUONEB) VIAL INH SCH ×4 (02:54→19:44)
[2018-03-22] MEDS: 1/2 NS W/KCL 20 MEQ/L 1,000 ML IV SCH (03:58)
[2018-03-22 04:10] VITALS: BP 149/77
[2018-03-22 05:46] LABS: BASOPHILS % (AUTO) 0 % (0-10); EOSINOPHILS % (AUTO) 0 % (0-10); HEMATOCRIT 29 % (40-54); LYMPHOCYTES # (AUTO) 0.5 X 10^3 (1.0-4.0); LYMPHOCYTES % (AUTO) 19 % (12-44); MEAN CORPUSCULAR HEMOGLOBIN 29 PG (25-34); MEAN CORPUSCULAR HGB CONC 34 G/DL (32-36); MEAN CORPUSCULAR VOLUME 83 FL (80-99); MEAN PLATELET VOLUME 9.7 FL (7.4-10.4); MONOCYTES # (AUTO) 0.2 X 10^3 (0.0-1.0); MONOCYTES % (AUTO) 7 % (0-12); NEUTROPHILS % (AUTO) 74 % (42-75); PLATELET COUNT 244 10^3/uL (130-400); RED CELL DISTRIBUTION WIDTH 13.7 % (10.0-14.5); WHITE BLOOD COUNT 2.7 10^3/uL (4.3-11.0)
[2018-03-22] MEDS: predniSONE 20 MG TAB PO SCH (06:02)
[2018-03-22 06:14] LABS: ALANINE AMINOTRANSFERASE 102 U/L (0-55); ALBUMIN 3.2 GM/DL (3.2-4.5); ALKALINE PHOSPHATASE 63 U/L (40-136); BILIRUBIN,TOTAL 0.4 MG/DL (0.1-1.0); BUN/CREATININE RATIO 12; CALCIUM 8.8 MG/DL (8.5-10.1); CARBON DIOXIDE 21 MMOL/L (21-32); CHLORIDE 106 MMOL/L (98-107); CREATININE SERUM 0.67 MG/DL (0.60-1.30); GFR ESTIMATED > 60; GLUCOSE 145 MG/DL (70-105); SODIUM 136 MMOL/L (135-145); TOTAL PROTEIN 6.1 GM/DL (6.4-8.2)
[2018-03-22 08:00] VITALS: BP 176/70
[2018-03-22] MEDS ORDERED: NON-FORMULARY MEDICATION 1 EA EA (Amlodipine Besylate 10 MG) PO SCH (09:00)
[2018-03-22] MEDS: POLYETHYLENE GLYCOL 17 GM (MIRALAX) PACK PO SCH ×2 (09:11→21:28)
[2018-03-22] MEDS: AZITHROMYCIN 250 MG TAB (ZITHROMAX) PO SCH (09:11)
[2018-03-22] MEDS: amLODIPine 10 MG (NORVASC) TAB PO SCH (09:11)
[2018-03-22] MEDS: IBUPROFEN 600 MG (MOTRIN) TAB PO PRN (09:22)
[2018-03-22] MEDS ORDERED: TROUGH ORDER-PHARMACY XX NR (10:00)
--- NOTE | 2018-03-22 10:40 | Progress Note-Hospitalist ---
Subjective HPI/CC On Admission Date Seen by Provider: Mar 22, 2018 Time Seen by Provider: 10:35 This is a 77-year-old white male known to me. He evidently has been having increased confusion not feeling well and difficulty voiding for the last week or so. He had seen Dr. Ramsey and been started on sulfa but then there is the possibility that he is feeling better so he had discontinued. He is been found to have some blood in his urine but his mental status has continued to deteriorate overnight where he is difficult to arouse this morning. He remains febrile but without an elevated white count. He does have a history of malignant melanoma and has been undergoing immunotherapy by Dr. King. In addition he has a history of squamous cell carcinomas of the skin. I'm unable to arouse him except to stimuli but he won't answer questions and follows quickly to sleep. He has been a very active man and spends a lot of time outside so tickborne illnesses versus encephalitis from mosquito factors is also a possibility Subjective/Events-last exam Pt is reports feeling better. Hip pain was worse this morning but improved with pain medication. Pt and family expressed concerns about returning home. Objective Exam Vital Signs Vital Signs Date Time Temp Pulse Resp B/P (MAP) Pulse Ox O2 Delivery O2 Flow Rate FiO2 03/22/18 07:39 96 21 03/22/18 07:09 Room Air 03/22/18 04:10 98.3 68 18 149/77 (101) 03/20/18 02:40 2.00 Capillary Refill : Less Than 3 Seconds General Appearance: No Apparent Distress, WD/WN Respiratory: Lungs Clear, No Respiratory Distress Cardiovascular: Regular Rate, Rhythm, No Murmur Gastrointestinal: Normal Bowel Sounds, Soft Results/Procedures Lab Laboratory Tests 03/22/18 05:35 Patient resulted labs reviewed. 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 by Dr Arriaza Started on Prednisone yesterday- continue (3) Right leg weakness Status: Acute Assessment & Plan: Reviewed previous images last MRI [address] Called Ortho 4 states they had no further imaging Attempted to call Dr Winkler who pt believed to be his surgeon but he has not seen patient since 2010 MRI shows canal stenoses and foraminal stenosis No metastatic disease or abscess (4) MELANOMA Assessment & Plan: Follows with Dr King Will consult heme/onc, appreciate recs (5) Hypertension Status: Acute Assessment & Plan: Trending upwards, will resume home BP meds Qualifiers: Hypertension type: essential hypertension Qualified Codes: I10 - Essential (primary) hypertension (6) Leukopenia Status: Acute Assessment & Plan: Remains leukopenic but not neutropenic Trended down somewhat today Qualifiers: Leukopenia type: unspecified Qualified Codes: D72.819 - Decreased white blood cell count, unspecified Clinical Quality Measures DVT/VTE Risk/Contraindication: Risk Factor Score Per Nursin RFS Level Per Nursing on Admit: 2=Moderate MATEO ANDERSON MD Mar 22, 2018 10:40 am
[2018-03-22] MEDS: VANCOMYCIN 1250 MG/NS 250 ML IVPB IV SCH ×2 (11:09)
--- NOTE | 2018-03-22 14:30 | Oncology Progress Note ---
Subjective Date Seen by a Provider: Mar 22, 2018 Time Seen by a Provider: 14:00 Subjective/Events-last exam Pt is feeling better. Up to the chair and walking. Fever down, Tmax 100.2 over last 24 hrs. All cultures remained negative so far. CXR improved. Data Review Labs Laboratory Tests 03/22/18 05:35 Laboratory Tests 03/20/18 06:15: White Blood Count 3.3L, Red Blood Count 3.38L, Hemoglobin 9.8L, Hematocrit 29L, Neutrophils (%) (Auto) 81H, Lymphocytes # (Auto) 0.5L, Potassium Level 3.5L, Chloride Level 110H, Carbon Dioxide Level 20L, Blood Urea Nitrogen 19H, Calcium Level 8.0L, Aspartate Amino Transf (AST/SGOT) 155H, Alanine Aminotransferase ( ALT/SGPT) 118H, B-Type Natriuretic Peptide 174.4H, Total Protein 4.9L, Albumin 2.8L 03/21/18 06:27: White Blood Count 2.9L, Red Blood Count 3.32L, Hemoglobin 9.8L, Hematocrit 28L, Lymphocytes # (Auto) 0.6L, Chloride Level 110H, Calcium Level 8.3L, Aspartate Amino Transf (AST/SGOT) 134H, Alanine Aminotransferase (ALT/SGPT) 111H, Total Protein 5.6L, Albumin 3.0L, Glucose Level 108H 03/21/18 10:50: Vancomycin Level Trough 5.0L 03/22/18 05:35: White Blood Count 2.7L, Red Blood Count 3.50L, Hemoglobin 10.0L, Hematocrit 29L , Lymphocytes # (Auto) 0.5L, Aspartate Amino Transf (AST/SGOT) 105H, Alanine Aminotransferase (ALT/SGPT) 102H, Total Protein 6.1L, Glucose Level 145H 03/22/18 09:55: Vancomycin Level Trough 9.7L Physical Exam Vital Signs Vital Signs - First Documented 03/18/18 03/19/18 03/19/18 19:21 01:00 07:24 Temp 103.2 Pulse 68 Resp 16 B/P (MAP) 122/50 (74) Pulse Ox 95 O2 Delivery Room Air O2 Flow Rate 2.00 Capillary Refill : Less Than 3 Seconds Height, Weight, BMI Height: 5'9.00" Weight: 188lbs. 0.0oz. 85.050016hz; 27.8 BMI Method:Stated General Appearance: No Apparent Distress HEENT: PERRL/EOMI Neck: Non Tender, Supple Respiratory: Normal Breath Sounds, No Accessory Muscle Use, No Respiratory Distress Cardiovascular: Regular Rate, Rhythm, No JVD Gastrointestinal: Non Tender, Soft Neurologic/Psychiatric: Alert, Oriented x3 Focused Exam Respiratory: Lungs Clear, Normal Breath Sounds, No Accessory Muscle Use, No Respiratory Distress Cardiovascular: Regular Rate, Rhythm, No JVD Impression & Plan Impression & Plan IMP: 1. Pneumonia per Xray from ER. on triple antibiotics, CXR showed improving. All the cultures are negative so far. 2. Mental status change, was improved. But complaining right leg weakness today. 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 3. Leukopenia and anemia. WBC lower to 2.7 . However ANC still 2.0 in good range. ? related to infection vs autoimmune reaction. Hb is better today at 10. Watch for now. 4. Fever 104 and still 103 today. Having chills. ?related to vasculitis in addition to pneumonia. Empirical Prednisone 50mg daily started 02/18/2018. 5. h/o Invasive melanoma left forearm, [id number], stage IIID, BRAF negative. MRI brain was Negative for metastatic disease. Completion axillary dissection was positive for 7/12 lymph nodes. Started adjuvant immunotherapy with nivolumab on 11/23/17. Completed 8 cycles as of 02/16/18. Last dose 03/16/18 was hold off due to poor performance and lethargy. 6. h/o MGUS. SPEP on 10/19/17 shows decreased paraproteins, and free light chains continue to be negative. Rec: 1. Stay on Prednisone 50mg daily for total of 5 days for possible automimmune vasculitis from the immunotherapy Opdivo (nivolumab), reduce to 25mg oral daily until seeing Dr King next week. Please call cancer center for f/u with Dr King in a week. 2. I would not add any neutrophil stimulating factor for now since his ANC is over 2 and clinical improving. 3. Hold off Opdivo treatment. 4. Dr Yi to decide the antibiotics course. 5. From hem/onc point of view, Pt can be discharged to rehab/nursing facility or home. Dr Yi to make the final call. Thank you very much for the consultation. Clinical Quality Measures DVT/VTE Risk/Contraindication: Risk Factor Score Per Nursin RFS Level Per Nursing on Admit: 2=Moderate AJ CUBA MD Mar 22, 2018 14:30
--- NOTE | 2018-03-22 14:38 | Physical Therapy Daily Note ---
PT Daily Note-Current Subjective Pt laying Supine in bed upon arrival. Pt agrees to PT for ambulation. Mental Status Patient Orientation: Person, Place, Situation Transfers Functional [place] Measure 0=Not Assessed/NA 4=Minimal Assistance 1=Total Assistance 5=Supervision or Setup 2=Maximal Assistance 6=Modified [place] 3=Moderate Assistance 7=Complete IndependenceIRFPAI Quality Coding Scale 6 Independent with activity with or without an assistive device 5 Patient requires set up or clean up by helper. Patient completes activity by themselves 4 Supervision or touching assist (CGA). [place] provide cues , steadying assist 3 The helper provides less than half the effort to complete the activity 2 The helper provides more than half the effort to complete the activity 1 Dependent. The helper does all the effort to complete an activity 7 Patient refused to complete or attempt activity 9 The patient did not perform the activity before the current illness or injury 88 Not attempted due to Medical conditions or safety concerns Scootin Rollin Supine to/from Sit: 2 Sit to/from Stand: 2 Pt feels that he is not capable to completing tasks as well as he is actually able to. Weight Bearing Right Lower Extremity: Right Weight Bearing/Tolerated Left Lower Extremity: Left Weight Bearing/Tolerated Gait Training Distance (FIM): 4=675-98 ft Distance: 50' Gait Level of Assist: 3 Gait Persons Needed: 1 Gait Assistive Device: FWW Pt needs VC and is not always realistic about expectations. Treatments Pt transfers from supine in bed to EOB to Standing using FWW at Mod A. Pt ambulates short distance in hallway then returns to room to rest in recliner. ICE CREAM DIPPER changes bedding while PRINTING EQUIPMENT MECHANIC APPRENTICE changes pt's gown since soaked with urine. Pt has all needs met at end of tx. Assessment Current Status: Fair Progress Pt fatigues quickly and is incontinent. PT Halfway Goals Halfway Goals PT Information Engineer Goals Time Frame: Mar 27, 2018 Transfers (B,C,W/C) (FIM): 6 Gait (FIM): 6 Gait distance (FIM): 3=150 ft Gait Assistive Device: FWW PT Plan Problem List Problem List: Activity Tolerance, Functional Strength, Safety, Balance, Gait, Transfer, Bed Mobility Treatment/Plan Treatment Plan: Continue Plan of Care Treatment Plan: Bed Mobility, Education, Functional Activity Abdulkadir, Functional Strength, Gait, Safety, Therapeutic Exercise, Transfers Treatment Duration: Mar 27, 2018 Frequency: 6 times per week Estimated Hrs Per Day: .25 hour per day Patient and/or Family Agrees t: Yes Safety Risks/Education Patient Education: Gait Training, Transfer Techniques, Correct Positioning, Safety Issues Teaching Recipient: Patient Teaching Methods: Discussion Response to Teaching: Verbalize Understanding Time/GCodes Time In: 1340 Time Out: 1400 Total Billed Treatment Time: 20 Total Billed Treatment 1, FA (20m) G Codes Necessary: RITA Barker PTA Mar 22, 2018 14:38
[2018-03-22 16:27] VITALS: BP 144/70
[2018-03-22] MEDS ORDERED: VANCOMYCIN INJECTION 1,000 MG in NS (IVPB) 250 ML IV SCH (19:00)
[2018-03-22 20:47] VITALS: BP 138/63
[2018-03-22] MEDS: cefTRIAXone 1 GM/NS 50 ML IVPB IV SCH ×2 (21:28)
[2018-03-22] MEDS: lisINopril 20 MG (PRINIVIL) TABLET PO SCH (21:28)
[2018-03-22 23:43] VITALS: BP 152/70
[2018-03-23 05:20] LABS: BASOPHILS % (AUTO) 1 % (0-10); EOSINOPHILS % (AUTO) 0 % (0-10); HEMATOCRIT 27 % (40-54); HEMOGLOBIN 9.4 G/DL (13.3-17.7); LYMPHOCYTES # (AUTO) 1.2 X 10^3 (1.0-4.0); LYMPHOCYTES % (AUTO) 30 % (12-44); MEAN CORPUSCULAR HEMOGLOBIN 30 PG (25-34); MEAN CORPUSCULAR HGB CONC 36 G/DL (32-36); MEAN CORPUSCULAR VOLUME 84 FL (80-99); MEAN PLATELET VOLUME 9.8 FL (7.4-10.4); MONOCYTES # (AUTO) 0.3 X 10^3 (0.0-1.0); MONOCYTES % (AUTO) 9 % (0-12); NEUTROPHILS # (AUTO) 2.4 X 10^3 (1.8-7.8); NEUTROPHILS % (AUTO) 61 % (42-75); PLATELET COUNT 256 10^3/uL (130-400); RED BLOOD COUNT 3.17 10^6/uL (4.35-5.85); RED CELL DISTRIBUTION WIDTH 13.6 % (10.0-14.5)
[2018-03-23] MEDS: IBUPROFEN 600 MG (MOTRIN) TAB PO PRN (05:24)
[2018-03-23 05:41] LABS: BUN/CREATININE RATIO 18; CARBON DIOXIDE 24 MMOL/L (21-32); CHLORIDE 106 MMOL/L (98-107); CREATININE SERUM 0.68 MG/DL (0.60-1.30); GFR ESTIMATED > 60; GLUCOSE 109 MG/DL (70-105); POTASSIUM 3.6 MMOL/L (3.6-5.0); SODIUM 138 MMOL/L (135-145)
[2018-03-23] MEDS: predniSONE 20 MG TAB PO SCH (06:20)
[2018-03-23] MEDS: amLODIPine 10 MG (NORVASC) TAB PO SCH (08:31)
[2018-03-23] MEDS: AZITHROMYCIN 250 MG TAB (ZITHROMAX) PO SCH (08:31)
[2018-03-23] MEDS: POLYETHYLENE GLYCOL 17 GM (MIRALAX) PACK PO SCH (08:31)
--- NOTE | 2018-03-23 08:51 | Discharge Summary-Hospitalist ---
Diagnosis/Chief Complaint Date of Admission Mar 19, 2018 at 00:10 Date of Discharge Admission Diagnosis Fever with a change in mental status and a history of malignant melanoma, white count is normal we'll obtain a CT head. In addition we'll add vancomycin to Rocephin and Zithromax. 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 by Dr Arriaza Started on Prednisone yesterday- continue (3) Right leg weakness Status: Acute Assessment & Plan: Reviewed previous images last MRI [address] Called Ortho 4 states they had no further imaging Attempted to call Dr Winkler who pt believed to be his surgeon but he has not seen patient since 2010 MRI shows canal stenoses and foraminal stenosis No metastatic disease or abscess (4) MELANOMA Assessment & Plan: Follows with Dr King Will consult heme/onc, appreciate recs (5) Hypertension Status: Acute Assessment & Plan: Trending upwards, will resume home BP meds (6) Leukopenia Status: Acute Assessment & Plan: Remains leukopenic but not neutropenic Trended down somewhat today Discharge Summary Procedures/Consulations Dr Seymour- Oncology Discharge Physical Exam Allergies: Coded Allergies: No Known Drug Allergies (Unverified , 11/09/17) Vitals & I&Os Vital Signs Date Time Temp Pulse Resp B/P (MAP) Pulse Ox O2 Delivery O2 Flow Rate FiO2 03/23/18 10:36 60 20 185/84 95 Room Air 2.00 03/23/18 10:32 97.8 03/22/18 07:39 21 General Appearance: No Apparent Distress, WD/WN Cardiovascular: Regular Rate, Rhythm, No Murmur Hospital Course Pt was admitted for fever and pneumonia but despite antibiotics reamined febrile and developed leukopenia. 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 He become more debilitated thorughout his stay and was evaluated by IRU and accepted for inpatient rehab admission. Labs (last 24 hrs) Microbiology 03/18/18 Blood Culture - Preliminary, Resulted No growth 03/20/18 MRSA Screen - Final, Complete MRSA not isolated 03/18/18 Urine Culture - Final, Complete NO GROWTH Patient resulted labs reviewed. Pending Labs Imaging: Reviewed Imaging Report Discussion & Recommendations Discharge Planning: >30 minutes discharge planning Discharge Home Medications: Active Scripts Active Reported Fish Oil 1,200 mg Fish Oil (Fish Oil/Dha/Epa) 1 Each Capsule 2,400 Mg PO DAILY Aspirin EC (Aspirin) 81 Mg Tablet.dr 81 Mg PO DAILY Celecoxib 200 Mg Capsule 200 Mg PO DAILY Allergy Relief (Cetirizine HCl) 10 Mg Tablet 10 Mg PO DAILY Furosemide 40 Mg Tablet 40 Mg PO DAILY Ondansetron Odt (Ondansetron) 8 Mg Tab.rapdis 8 Mg PO BID PRN Colace (Docusate Sodium) 100 Mg Capsule 200 Mg PO DAILY TAKES 2 (100MG) CAPSULES Amlodipine Besylate 10 Mg Tablet 10 Mg PO DAILY Bystolic (Nebivolol HCl) 10 Mg Tab 10 Mg PO DAILY Lisinopril 20 Mg Tablet 20 Mg PO HS Miralax (Polyethylene Glycol 3350) 17 Gm Powd.pack 17 Gm PO DAILY Instructions to patient/family Please see electronic discharge instructions given to patient. Clinical Quality Measures DVT/VTE Risk/Contraindication: Risk Factor Score Per Nursin RFS Level Per Nursing on Admit: 2=Moderate Problem Qualifiers (1) Pneumonia: Pneumonia type: due to unspecified organism Laterality: right Lung location : middle lobe of lung Qualified Codes: J18.1 - Lobar pneumonia, unspecified organism (2) Hypertension: Hypertension type: essential hypertension Qualified Codes: I10 - Essential ( primary) hypertension (3) Leukopenia: Leukopenia type: unspecified Qualified Codes: D72.819 - Decreased white blood cell count, unspecified MATEO ANDERSON MD Mar 23, 2018 08:51
[2018-03-23] MEDS ORDERED: PRED5TAB PO (09:31)
[2018-03-23] MEDS ORDERED: TROUGH ORDER-PHARMACY XX NR (10:00)
[2018-03-23 10:32] VITALS: BP 185/84
[2018-03-23 10:36] VITALS: BP 185/84
== END 2018-03-23 10:38 | DRG 871 ==
LOC: EDUNIT# 19:14 → ER 19:17 → 4TH 03-19 00:10
PROVIDERS: ADMIT Internal Medicine; ATTEND Internal Medicine
DX: A41.9 Sepsis, unspecified organism (principal); J18.9 Pneumonia, unspecified organism; R31.9 Hematuria, unspecified; C43.62 Malignant melanoma of left upper limb, including shoulder; C77.3 Secondary and unspecified malignant neoplasm of axilla and upper limb lymph nodes; D72.819 Decreased white blood cell count, unspecified; D64.9 Anemia, unspecified; R29.898 Other symptoms and signs involving the musculoskeletal system; L95.9 Vasculitis limited to the skin, unspecified; T45.1X5A Adverse effect of antineoplastic and immunosuppressive drugs, initial encounter; I10 Essential (primary) hypertension; M19.91 Primary osteoarthritis, unspecified site; J30.2 Other seasonal allergic rhinitis; K59.09 Other constipation; R60.9 Edema, unspecified; Z85.46 Personal history of malignant neoplasm of prostate; Z85.51 Personal history of malignant neoplasm of bladder; Z79.899 Other long term (current) drug therapy; Z85.828 Personal history of other malignant neoplasm of skin; Z87.891 Personal history of nicotine dependence; Z92.3 Personal history of irradiation; Z90.79 Acquired absence of other genital organ(s)
CPT/HCPCS: 36415; 36600; 70470; 71045; 71046; 72158; 80048; 80053; 80202; 81000; 82805; 83605; 83880; 85007; 85025; 85027; 85610; 85730; 86666; 86668; 86757; 87040; 87081; 87088; 87430; 94640; 94760; 96361; 96365; 96375

== ENCOUNTER 2018-03-23 10:15 | Inpatient (IN) | payer MEDICARE, OTHER ==
[~2018-03-23] VITALS: Ht 175.3 cm; Wt 80.9 kg
[2018-03-23 10:15] VITALS: BP 168/79
[~2018-03-23 10:15] MED LIST changes: +ASPI-983 PO; +CELE-63 PO; +CETI-214 PO; +OMG1KC PO; +ONDA8TAB13 PO; +PRED5TAB PO
--- NOTE | 2018-03-23 10:56 | Physical Therapy Evaluation ---
PT Evaluation-General Medical Diagnosis Admission Date Mar 23, 2018 at 10:15 Medical Diagnosis: pneumonia Onset Date: Mar 19, 2018 Therapy Diagnosis Therapy Diagnosis: impaired strength, balance, and mobility, and endurance Height/Weight Height (Feet): 5 Height (Inches): 9.00 Weight (Pounds): 188 Weight (Ounces): 0.0 Weight Bear Status Right Lower Extremity: Right Full Weight Bearing Left Lower Extremity: Left Full Weight Bearing Referral Physician: Simon Reason for Referral: Evaluation/Treatment Medical History Pertinent Medical History: Arthritis, Back Injury, HTN Additional Medical History skin CA Current History patient came to the hospital initially with confusion and hematuria Reviewed History: Yes Social History Home: Single Level Current Living Status: Alone Entry Into Home: Level Entry Prior/Core FIM Prior Level of Function Functional [place] Measure 0=Not Assessed/NA 4=Minimal Assistance 1=Total Assistance 5=Supervision or Setup 2=Maximal Assistance 6=Modified [place] 3=Moderate Assistance 7=Complete [place] Bed Mobility: 7 Transfers (B,C,W/C) (FIM): 7 Gait: 6 Pt used SPC for ambulation PT Evaluation-Current Subjective pt in chair pre tx, agrees to PT, no pain to report, but states he feels sore in his knees and hips Pt/Family Goals to be independent at home Objective Patient Orientation: Person, Place, Time ROM/Strength ROM Lower Extremities Unable to assess due to pain and unwillingness of patient to participate. Strenght Lower Extremities RLE (hip flexion 2/5, knee ext. 2/5, knee flexion 3/5, plantarflexion 4/5, dorsiflexion 3/5) LLE (hip flexion 2/5, knee ext. 3+/5, knee flexion 4/5, plantarflexion 4/5, dorsiflexion 4/5) Neuromuscular (Tone, Coordination, Reflexes) NT Sensory Vision: Wears Glasses Hearing: Functional Sensation Right Lower Extremit: Intact Sensation Left Lower Extremity: Intact Transfers Functional [place] Measure 0=Not Assessed/NA 4=Minimal Assistance 1=Total Assistance 5=Supervision or Setup 2=Maximal Assistance 6=Modified [place] 3=Moderate Assistance 7=Complete IndependenceIRFPAI Quality Coding Scale 6 Independent with activity with or without an assistive device 5 Patient requires set up or clean up by helper. Patient completes activity by themselves 4 Supervision or touching assist (CGA). [place] provide cues , steadying assist 3 The helper provides less than half the effort to complete the activity 2 The helper provides more than half the effort to complete the activity 1 Dependent. The helper does all the effort to complete an activity 7 Patient refused to complete or attempt activity 9 The patient did not perform the activity before the current illness or injury 88 Not attempted due to Medical conditions or safety concerns Transfers (B, C, W/C) (FIM): 3 Scootin Rollin Roll Left to Right (QC): 2 Supine to/from Sit: 3 Sit to/from Stand: 4 bed t/f WC(FIM only if WC use): 4 Sit to Lying (QC): 2 Lying to Sitting/Side of Bed(Q: 2 Sit to Stand (QC): 3 Chair/Qcn-ha-Vqoiy Xfer(QC): 4 Car Transfer (QC): 2 supine<->sit modA w/ assistance getting both legs into/out of bed and sitting up , sit<->stand Josiah, chair<->bed SBA, car transfer modA w/ assistance getting both legs into/out of car Gait Does the Patient Walk?: Yes Mode of Locomotion: Walk Anticipated Mode of Locomotion: Walk Gait (FIM): 2 Distance (FIM): 0=991-63 ft Walk 10 feet (QC): 4 Walk 50 ft with 2 Turns(QC): 4 Walk 150 ft (QC): 88 Walking 10ft/uneven surface-QC: 4 Distance: 80'x3 Gait Level of Assist: 4 Gait Persons Needed: 1 Gait Assistive Device: FWW Comments/Gait Description Pt ambulates w/ FWW and CGA, gait is slow w/ flexed posture, but no LOB Stairs Stairs (FIM): 0 #of Steps: 0 1 Step (curb) (QC): 88 4 Steps (QC): 88 12 Steps (QC): 88 If not tested on admit;explain NT due to safety, inadequate hip flexion strength to clear step Balance Sitting Static: Normal Sitting Dynamic: Normal Standing Static: Fair Standing Dynamic: Fair Picking up an Object (QC): 88 Treatment seated exercises - LAQs, AP x20 supine exercises - hip flexion, HS x10 Assessment/Needs Impaired mobility, balance, and strength. Pt ambulates only short distances w/o needing rest and gait is very slow. Pt very weak in both LEs, but more pronounced in RLE. Pt educated on protocol for inpatient rehab facility and states he is unsure about being able to handle 3 hours of therapy each day. Rehab Potential: Fair PT Short Term Goals Short Term Goals Time Frame: Mar 30, 2018 Transfers (B,C,W/C) (FIM): 4 Gait (FIM): 3 Distance (FIM): 3=150 ft Gait Distance Comment: 150' Gait Level of Assist: 4 Gait Assistive Device: FWW PT Scallop Dredger Goals Care Home Goals PT Care Home Goals Time Frame: Apr 06, 2018 Transfers (B,C,W/C) (FIM): 5 Sit to Lying (QC): 6 Lying-Sitting on Side/Bed(QC): 6 Sit to Stand (QC): 4 Rollin Roll Left to Right (QC): 6 Chair/Wrq-ts-Qtfac Xfer(QC): 4 Car Transfer (QC): 4 Does the Patient Walk: Yes Gait (FIM): 5 Distance: 250' Walk 10 feet (QC): 4 Walk 10ft-Uneven Surface(QC): 4 Walk 50ft with 2 Turns (QC): 4 Walk 150 ft (QC): 4 Gait Level of Assist: 5 Gait Assistive Device: FWW Stairs (FIM): 2 # of Steps: 4 1 Step (curb) (QC): 4 4 Steps (QC): 4 Stairs Level Of Assist: 4 PT Plan Problem List Problem List: Activity Tolerance, Functional Strength, Safety, Balance, Gait, Transfer, Bed Mobility, ROM Treatment/Plan Treatment Plan: Continue Plan of Care Treatment Plan: Bed Mobility, Concurrent Therapy, Education, Functional Activity Abdulkadir, Functional Strength, Group Therapy, Gait, Safety, Therapeutic Exercise, Transfers Treatment Duration: Apr 13, 2018 Frequency: At least 5 of 7 days/Wk (IRF) Estimated Hrs Per Day: 1.5 hours per day Patient and/or Family Agrees t: Yes Safety Risks/Education Patient Education: Gait Training, Transfer Techniques, Correct Positioning, Safety Issues Teaching Recipient: Patient Teaching Methods: Demonstration, Discussion Response to Teaching: Reinforcement Needed Discharge Recommendations Plan Pt will perform bed mobility, transfer training, balance training, gait training , functional strengthening/AROM, endurance training, and education to be independent at home. Therapy D/C Recommendations: Home w/ Family Support Time/GCodes Time In: 1000 Time Out: 1100 Total Billed Treatment Time: 60 Total Billed Treatment 1 visit EVM 30' EX 15' GT 15' GREGORIA TREVIÑO PT Mar 23, 2018 10:56
[2018-03-23] MEDS ORDERED: ACETAMINOPHEN 500 MG TAB (TYLENOL) PO PRN (13:30)
--- NOTE | 2018-03-23 13:31 | Occupational Therapy Eval ---
OT Evaluation-General/PLF Medical Diagnosis Admission Date Mar 23, 2018 at 10:15 Medical Diagnosis: pneumonia Onset Date: Mar 18, 2018 Therapy Diagnosis Therapy Diagnosis: decr self care, weakness, decr act rowena, decr funct mobility Height/Weight Height (Feet): 5 Height (Inches): 9.00 Weight (Pounds): 188 Weight (Ounces): 0.0 Precautions Precautions/Isolations: Standard Precautions Referral Physician: Simon Referral Reason: Evaluation/Treatment Medical History Pertinent Medical History: Arthritis, Back Injury, HTN Additional Medical History Prostatectomy. neck and back surgeries. Bilateral rotator cuff surgeries. Chronic constipation. DJD. Bladder and prostate cancer. Melanoma L forearm, with current immunotherapy. Current History Admitted through ED with being shaky, confused, not feeling well. Hematuria. LE weakness Reviewed History: Yes Social History Home: Single Level Current Living Status: Alone Entry Into Home: Level Entry ADL-Prior Level of Function ADL PLOF Comments Pt reported that he has been able to manage all of his basic self care needs until admission. He does laundry, cleaning, a little cooking and has several acres that he mows with riding mower. 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 "Arms" on toilet. Uses watch repairer, sock aid, long shoe horn, long handled sponge OT Current Status Subjective Pt seen in room, up in bed, agreeable to OT. Pain reported /10. Appearance Alert, cooperative. A little confused about how much help he needs ("It takes two to get me off the toilet" Mental Status/Objective Patient Orientation: Person, Confused, Place, Time Attachments: Other-See Comments (Port, covered by Opsite by nursing) Current Glasses/Contacts: Yes Hearing Aids: No Dentures/Partials: No Hand Dominance: Right Upper Extremity ROM Grossly WFL bilat (shoulders limited to approx 80-90 degrees flex/abd) Upper Extremity Strength Grossly 4/5 bilat ADL-Treatment ADL-Current Pt needed mod assist to get from supine to sit EOB (help to move legs) and min assist sit to stand, bed elevated, head of bed raised up. Walked with CGA, FWW to bathroom, cues for hand placement to sit on BSC over toilet, CGA. Managed clothing and hygiene with SBA, FWW. Pt undressed for shower using shoe horn, watch repairer. Pt washed and dried all parts except back with setup, supervision, shower bench, grab bars, hand held shower. Donned shirt with setup but needed help to lift and place feet into pants. Able to stand min assist and to pull pants up over hips, SBA, FWW. Walked with CGA, FWW to recliner. Pt completed shaving and combing hair while seated and put shoes on. All ADLs took longer than usual. Pt left up in recliner, all needs met. Functional [place] Measure 0=Not Assessed/NA 4=Minimal Assistance 1=Total Assistance 5=Supervision or Setup 2=Maximal Assistance 6=Modified [place] 3=Moderate Assistance 7=Complete IndependenceIRFPAI Quality Coding Scale 6 Independent with activity with or without an assistive device 5 Patient requires set up or clean up by helper. Patient completes activity by themselves 4 Supervision or touching assist (CGA). [place] provide cues , steadying assist 3 The helper provides less than half the effort to complete the activity 2 The helper provides more than half the effort to complete the activity 1 Dependent. The helper does all the effort to complete an activity 7 Patient refused to complete or attempt activity 9 The patient did not perform the activity before the current illness or injury 88 Not attempted due to Medical conditions or safety concerns Grooming (FIM): 5 (Setup to comb hair but mod I to shave with electric razor) Bathing (FIM): 5 (Setup, supervision. Washed and dried all parts, using shower bench, grab bars, hand held shower) Shower/Bathe Self (QC): 4 (supervision) Upper Body Dressing (FIM): 5 (setup) Upper Body Dressing (QC): 5 Lower Body Dressing (FIM): 3 (Help to draft roller picker and place both feet into pants legs. He was able to pull pants up to thighs. Min assist sit to stand, then SBA with FWW to pull pants up over hips. Got socks off with shoe horn and put shoes on and tied them with setup) Lower Body Dressing (QC): 3 (Help to place both feet into pants, min assist to stand) On/Off Footwear (QC): 5 (sock aid, shoe horn) Toileting (FIM): 4 (CGA for clothing management and cues for hand placement. Managed hygiene with setup. Needs a shield on toilet) Toileting Hygiene (QC): 4 Transfers (B, C, W/C) (FIM): 3 (Help getting both feet out of bed) Toilet/Commode Transfer (FIM): 4 (CGA with BSC over toilet, FWW, grab bar) Toilet Transfer (QC): 4 Shower Transfer (FIM): 4 (CGA getting in and out of shower stall, min assist getting off shower bench) Education OT Patient Education: Modified ADL techniques, Purpose of tx/functional activities, Rehab process, Safety issues, Transfer techniques, Use of adapted equipment Teaching Recipient: Patient Teaching Methods: Demonstration, Discussion Response to Teaching: Verbalize Understanding, Return Demonstration, Reinforcement Needed OT Short Term Goals Short Term Goals Time Frame: Mar 30, 2018 Lower Body Dressing(FIM): 4 Toilet/Commode Transfer(FIM): 5 Shower Transfer(FIM): 5 Additional Short Term Goals: 1-Demonstrate ADL Tasks, 2-Verbalize Understanding , 3-ImproveStrength/Abdulkadir 1=Demonstrate adherence to instructed precautions during ADL tasks. 2=Patient will verbalize/demonstrate understanding of assistive devices/ modifications for ADL. 3=Patient will improve strength/tolerance for activity to enable patient to perform ADL's. OT Management Advisor Goals Management Advisor Goals Time Frame: Apr 14, 2018 Eating (FIM): 7 Eating (QC): 6 Groomin Oral Hygiene (QC): 6 Bathing(FIM): 6 Shower/Bathe Self (QC): 6 Upper Body Dressing(FIM): 6 Upper Body Dressing (QC): 6 Lower Body Dressing(FIM): 6 Lower Body Dressing (QC): 6 On/Off Footwear (QC): 6 Toileting(FIM): 6 Toileting Hygiene (QC): 6 Toilet/Commode Transfer(FIM): 6 Toilet/Commode Transfer (QC): 6 Shower Transfer(FIM): 6 Additional Goals: 1-Demonstrate ADL Tasks, 2-Verbalize Understanding, 3- ImproveStrength/Abdulkadir 1=Demonstrate adherence to instructed precautions during ADL tasks. 2=Patient will verbalize/demonstrate understanding of assistive devices/ modifications for ADL. 3=Patient will improve strength/tolerance for activity to enable patient to perform ADL's. OT Education/Plan Problem List/Assessment Assessment: Decreased Activ Tolerance, Decreased UE Strength, Dependent Transfers, Impaired Bed Mobility, Impaired Self-Care Skills Pt would benefit from skilled OT to increase his independence in basic self care to allow him to safely return home Discharge Recommendations Plan/Recommendations: Continue POC Treatment Plan/Plan of Care Treatment,Training & Education: Yes Patient would benefit from OT for education, treatment and training to promote independence in ADL's, mobility, safety and/or upper extremity function for ADL' s. Plan of Care: ADL Retraining, Functional Mobility, Group Exercise/Act as Ind ( education, exercise, memory, activity tolerance, functional activities, socialization) Treatment Duration: Apr 14, 2018 Frequency: At least 5 of 7 days/Wk (IRF) Estimated Hrs Per Day: 1.5 hours per day Agreement: Yes Rehab Potential: Fair Time/GCodes Start Time: 11:00 Stop Time: 12:40 Total Time Billed (hr/min): 100 Billed Treatment Time visit, 15 minutes evaluation moderate intensity, 85 minutes ADL KWAN CASILLAS OT Mar 23, 2018 13:31
--- NOTE | 2018-03-23 13:57 | Physical Therapy Daily Note ---
PT Daily Note-Current Subjective pt in recliner pre tx, agrees to PT, no pain to report Appearance pt in recliner post tx, w/ phone, call light, tray, all needs met Mental Status Patient Orientation: Normal For Age Transfers Functional [place] Measure 0=Not Assessed/NA 4=Minimal Assistance 1=Total Assistance 5=Supervision or Setup 2=Maximal Assistance 6=Modified [place] 3=Moderate Assistance 7=Complete IndependenceIRFPAI Quality Coding Scale 6 Independent with activity with or without an assistive device 5 Patient requires set up or clean up by helper. Patient completes activity by themselves 4 Supervision or touching assist (CGA). [place] provide cues , steadying assist 3 The helper provides less than half the effort to complete the activity 2 The helper provides more than half the effort to complete the activity 1 Dependent. The helper does all the effort to complete an activity 7 Patient refused to complete or attempt activity 9 The patient did not perform the activity before the current illness or injury 88 Not attempted due to Medical conditions or safety concerns Transfers (B, C, W/C) (FIM): 4 Sit to/from Stand: 4 sit<->stand Josiah, pt does well pushing off chair, but needs assistance getting all the way up Weight Bearing Right Lower Extremity: Right Full Weight Bearing Left Lower Extremity: Left Full Weight Bearing Gait Training Does the Patient Walk?: Yes Gait (FIM): 2 Distance: 60'x2 Gait Level of Assist: 5 Gait Persons Needed: 1 Gait Assistive Device: FWW pt ambulates to/from gym w/ FWW and SBA, steady gait, pt begins slow w/ shuffled steps but gradually increases speed and stride length Exercises NuStep Minutes: 15 NuStep Workload: 2 Treatments gait training, endurance training Assessment Current Status: Fair Progress improved endurance and mobility PT Short Term Goals Short Term Goals Time Frame: Mar 30, 2018 Transfers (B,C,W/C) (FIM): 4 Gait (FIM): 3 Distance (FIM): 3=150 ft Gait Distance Comment: 150' Gait Level of Assist: 4 Gait Assistive Device: FWW PT Cash Room Clerk Goals [facility] Goals PT [facility] Goals Time Frame: Apr 06, 2018 Transfers (B,C,W/C) (FIM): 5 Sit to Lying (QC): 6 Lying-Sitting on Side/Bed(QC): 6 Sit to Stand (QC): 4 Rollin Roll Left to Right (QC): 6 Chair/Sdz-ln-Qgnsi Xfer(QC): 4 Car Transfer (QC): 4 Does the Patient Walk: Yes Gait (FIM): 5 Distance: 250' Walk 10 feet (QC): 4 Walk 10ft-Uneven Surface(QC): 4 Walk 50ft with 2 Turns (QC): 4 Walk 150 ft (QC): 4 Gait Level of Assist: 5 Gait Assistive Device: FWW Stairs (FIM): 2 # of Steps: 4 1 Step (curb) (QC): 4 4 Steps (QC): 4 Stairs Level Of Assist: 4 PT Plan Problem List Problem List: Activity Tolerance, Functional Strength, Safety, Balance, Gait, Transfer, Bed Mobility Treatment/Plan Treatment Plan: Continue Plan of Care Treatment Plan: Bed Mobility, Concurrent Therapy, Education, Functional Activity Abdulkadir, Functional Strength, Group Therapy, Gait, Safety, Therapeutic Exercise, Transfers Treatment Duration: Apr 13, 2018 Frequency: At least 5 of 7 days/Wk (IRF) Estimated Hrs Per Day: 1.5 hours per day Patient and/or Family Agrees t: Yes Safety Risks/Education Patient Education: Gait Training, Transfer Techniques, Correct Positioning, Safety Issues Teaching Recipient: Patient Teaching Methods: Demonstration, Discussion Response to Teaching: Reinforcement Needed Time/GCodes Time In: 1330 Time Out: 1400 Total Billed Treatment Time: 30 Total Billed Treatment 1 visit GT 15' EX 15' KRUPA ACKERMAN PT Mar 23, 2018 13:57
--- NOTE | 2018-03-23 14:20 | HISTORY AND PHYSICAL ---
DATE OF SERVICE: 03/23/2018 ADMISSION HISTORY AND PHYSICAL CHIEF COMPLAINT: Difficulty with walking. HISTORY OF PRESENT ILLNESS: The patient is a 77-year-old male with past medical history significant for lumbar spine and cervical spine surgery, who developed confusion, felt to be due to the pneumonia and was admitted to [facility] on 03/19/2018 for further evaluation and treatment. The patient had a course of antibiotics. The patient developed leukopenia. This was felt to be due to possible autoimmune vasculitis from Opdivo provided by cancer center. The patient was started on steroids for this. The patient had right leg weakness, felt to be due to this as well, but his spine surgeon for the lumbar spine had not seen him since 2010. MRI was done, showed canal stenosis, foraminal stenosis, no metastatic disease or abscess. Currently, he had been independent prior to all this and not using significant pain medication. He lives alone in a single level house in [place]. 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 Currently, he is mod assist for transfers and min assist for gait with a front wheel walker. He is on a steroid taper, is utilizing ibuprofen for pain control. Reports no to little pain while at rest, lying in bed, but increased with activity. He has had prior cervical spine surgery with Dr. Anna at [facility] and lumbar spine surgery with Dr. Winkler in 2010.He i setup for grooming and bathing as well as Upper body dressing He is Mod assist for lower body drssing. PAST MEDICAL HISTORY: DJD of the spine and hypertension. PAST SURGICAL HISTORY: As per above. History of cancer of the prostate, remote. ALLERGIES: No known medication allergies. FAMILY HISTORY: Noncontributory. SOCIAL HISTORY: He is a and lives alone, but has family nearby. PCP, Dr. Ramsey. REVIEW OF SYSTEMS: A 10-point review of systems is significant for back pain and right leg weakness. MEDICATIONS: 1. Prednisone 25 mg p.o. daily. 2. Amlodipine 10 mg p.o. daily. 3. ASA 81 mg p.o. daily. 4. Celebrex 200 mg p.o. daily. 5. Zyrtec 10 mg p.o. daily. 6. Colace 200 mg p.o. daily. 7. Fish oil 2400 mg p.o. daily. 8. Furosemide 40 mg p.o. daily. 9. Lisinopril 20 mg p.o. at bedtime. 10. Bystolic 10 mg p.o. daily. 11. Zofran 8 mg p.o. b.i.d. p.r.n. nausea and vomiting. 12. MiraLax 17 grams p.o. daily. PHYSICAL EXAMINATION: GENERAL: Significant for a pleasant obese male appearing his stated age, alert and oriented, lying in bed in no acute distress. VITAL SIGNS: He is afebrile, pulse is 65, respirations 18, blood pressure 168/79, O2 sat 97% on room air. HEENT: Vision, speech, hearing grossly intact. No oral lesion is noted. NECK: Supple without mass. HEART: Regular rhythm. CHEST: Clear. ABDOMEN: Soft, nontender. Bowel sounds present. EXTREMITIES: Trace edema of both ankles, no calf tenderness. MUSCULOSKELETAL: The patient has functional active range of motion in all 4 limbs. NEUROLOGIC: Cognition is grossly intact. Sensation is grossly intact to touch. Strength: Hip flexion bilaterally 2/5, knee extension right 2/5 and on the left 3+/5, knee flexion on the right 3/5, knee flexion on the left 4/5, plantar flexion 4/5 bilaterally, dorsiflexion 3/5 on the right and 4/5 on the left. The patient has 4/5 strength in both upper limbs. IMPRESSION: 1. 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 Currently, on steroids taper with bilateral lower limb weakness, right more than left. 2. Pneumonia, treated. 3. Melanoma. Follow up with Dr. King, medical oncology. 4. Hypertension, medications resumed. 5. Leukopenia, trend. 6. Degenerative joint disease of the spine, status post cervical spine surgery and lumbar spine surgery with MRI revealing lumbar canal stenosis and foraminal stenosis. PLAN: The patient will have a comprehensive program of inpatient rehabilitation with goal of maximizing level of functional independence prior to discharge home with home health care. The patient will have PT and OT 90 minutes per day each discipline, 5 days a week for 14 days with the above goals in mind. Please see post-admission physician evaluation, which is a saparate document for details of plan of care. Speech therapy to do cognitive assessment and treat as indicated. Rehabilitation nursing to assist with bowel, bladder, skin care, medication administration and pain management. Shipyard Painter Apprentice to assist with discharge planning and community reentry. Follow up with hospitalist service as well as medical oncology and ortho spine as per their schedule. SCDs for DVT prophylaxis. Follow up labs as per hospitalist service and medical oncology.Pain management. ESTIMATED LENGTH OF STAY: 14 days. PROGNOSIS: Rehab prognosis appears good for goal of discharging home with home health care, modified independent to supervision for ADLs, mobility skills. DIET: Heart healthy. CODE STATUS: Full code. Job ID: [id number] DocumentID: [id number] Dictated Date: 03/23/2018 13:52:55 Deckhand Maintenance Date: 03/23/2018 14:19:34 Dictated By: DANNA LAWS MD MTDD
[2018-03-23 15:25] VITALS: BP 151/75
[2018-03-23] MEDS: OMEGA 3 (FISH OIL) 1000 MG CAP PO SCH (16:44)
--- NOTE | 2018-03-23 19:12 | PM&R Post Admission Assessment ---
Post Admission Physician Asses Date seen by provider: Mar 23, 2018 Time seen by provider: 13:00 Admisison Dx: (1) Right leg weakness Status: Acute The preadmission screen agrees with the post admission assessment that the patient is a good candidate for inpatient rehabilitation. The patient will have a comprehensive program of inpatient rehabilitation with a goal of maximizing level of functional independence prior to discharge home with [facility]. The patient will have PT/OT ninety minutes per day, each discipline , five days a week for 14 days for gait, strengthening, conditioning, balance, ADLs, any patient/family/caregiver training as necessary. Speech therapy to do cognitive assessment and treat as indicated. Rehabilitation nursing to assist with bowel, bladder, skin, wound care, medication administration, pain management. Metal Building Assembler to assist with discharge planning, community reentry. SCD's for DVT prophylaxis. He appears to be well motivated to participate in three hours of therapy a day. He should be able to tolerate three hours of therapy a day from a medical standpoint. He should benefit from the three hours of therapy a day. He has a reasonable discharge plan, reasonable discharge rehabilitation goals and a supportive family. He has various comorbidities that need to be closely monitored with medications and treatments adjusted on a daily basis as needed. These include: Vascxulitis with RT Lower limb weakness>left as a consequence of treatment for [facility] HTN Pneumonia treated Chronic Back pain s/p Lumbar spine surgery and C spine surgery remote OA Barriers to discharge for this patient who had been independent prior to this are for him to be modified independent to supervision for ADLs and mobility skills prior to discharge home with [facility], so as to lessen the burden of the caregivers. Risks for this patient include: 1. Fall 2. Fracture 3. DVT 4. Pulmonary embolism 5. Poorly controlled vASCULITIS 6. Skin breakdown 7. Contractures 8. Poorly controlled pain 9. Urinary retention 10. UTI 11. Recurrent pneumonia 12. Aspiration 13. Poorly controlled HTN 14. sTEROID INDUCED hYPERGLYCEMIA Estimated Length of Stay: 14 days Prognosis: Rehab prognosis appears good for goal of discharge home with [facility] modified independent to supervision for ADLs and mobility skills. c CODE 16 eTIOLOGIC dx pNEUMONIA/vASCULITIS Date Identified: Mar 23, 2018 Time Identified: 15:00 Action Plan to Resolve CSMI: sTEROID TAPER FOR VASCULITIS pAIN MANAGEMENT General: Alert, Oriented X3, Cooperative, No Acute Distress HEENT: Atraumatic, PERRLA, EOMI, Mucous Memb Moist/[place] Neck: Supple, No JVD Lungs: Clear to Auscultation Heart: Regular Rate Abdomen: Normal Bowel Sounds, Soft, No Tenderness Extremities: Other (TRACE EDEMA) Neuro: Other (wEAKNESS bles rt^ LEFT) DANNA LAWS MD Mar 23, 2018 19:12
[2018-03-23] MEDS: POLYETHYLENE GLYCOL 17 GM (MIRALAX) PACK PO SCH (20:08)
[2018-03-23] MEDS: FAMOTIDINE 20 MG (PEPCID) TABLET PO SCH (20:08)
[2018-03-23] MEDS: lisINopril 20 MG (PRINIVIL) TABLET PO SCH (20:08)
[2018-03-24] MEDS: OMEGA 3 (FISH OIL) 1000 MG CAP PO SCH ×2 (06:27→17:22)
[2018-03-24] MEDS: predniSONE 10 MG TAB PO SCH (06:27)
[2018-03-24 06:40] VITALS: BP 167/80
[2018-03-24] MEDS ORDERED: FLU QUADRIvalent (5+ YOA) 2018-2019 (AFLURIA) 0.5 ML IM ONE (07:15)
[2018-03-24] MEDS: LORATADINE (CLARITIN) 10 MG TAB PO SCH (07:43)
[2018-03-24] MEDS: NEBIVOLOL 5 MG TAB (BYSTOLIC) PO SCH (07:43)
[2018-03-24] MEDS: CELECOXIB 100 MG (CeleBREX) CAP PO SCH (07:43)
[2018-03-24] MEDS: FAMOTIDINE 20 MG (PEPCID) TABLET PO SCH ×2 (07:43→20:21)
[2018-03-24] MEDS: amLODIPine 10 MG (NORVASC) TAB PO SCH (07:43)
[2018-03-24] MEDS: ASPIRIN E.C. 81 MG (ECOTRIN) TAB PO SCH (07:43)
--- NOTE | 2018-03-24 07:48 | PM & R (SOAP) Progress Note ---
Subjective This was a face to face visit with the patient. Date Seen by Provider: Mar 24, 2018 Time Seen by Provider: 07:25 Subjective/Events-last exam Patient was seen in his room this AM Patient adjusting well to unit Patient MIn assist for transfers Review of Systems Neurological: Weakness Objective Physician Exam Last Set of Vital Signs Vital Signs Date Time Temp Pulse Resp B/P (MAP) Pulse Ox O2 Delivery O2 Flow Rate FiO2 03/24/18 06:40 99.0 63 18 167/80 (109) 97 Room Air Capillary Refill : I&O Intake and Output 03/24/18 00:00 Intake Total 750 ml Balance 750 ml Intake Oral 750 ml # Voids 3 # Bowel Movements 1 Daily Weight Change Unsure General: Alert, Oriented X3, Cooperative, No Acute Distress HEENT: Atraumatic, PERRLA, EOMI, Mucous Memb Moist/[place] Neck: Supple, No JVD Lungs: Clear to Auscultation Heart: Regular Rate Abdomen: Normal Bowel Sounds, Soft, No Tenderness Extremities: Other (TRACE EDEMA) Neuro: Other (wEAKNESS bles rt^ LEFT) Assessment/Plan Assessment and Plan 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
--- NOTE | 2018-03-24 09:17 | Occupational Ther Daily Note ---
OT Current Status-Daily Note Subjective Pt alert, lying in bed. Pt states that he needs to get up and get going. No c/o pain. Mental Status/Objective Patient Orientation: Person, Confused, Place, Time, Situation Functional [place] Measure 0=Not Assessed/NA 4=Minimal Assistance 1=Total Assistance 5=Supervision or Setup 2=Maximal Assistance 6=Modified [place] 3=Moderate Assistance 7=Complete [place] Attachments: Other-See Comments (PICC) ADL-Treatment Functional [place] Measure 0=Not Assessed/NA 4=Minimal Assistance 1=Total Assistance 5=Supervision or Setup 2=Maximal Assistance 6=Modified [place] 3=Moderate Assistance 7=Complete IndependenceIRFPAI Quality Coding Scale 6 Independent with activity with or without an assistive device 5 Patient requires set up or clean up by helper. Patient completes activity by themselves 4 Supervision or touching assist (CGA). [place] provide cues , steadying assist 3 The helper provides less than half the effort to complete the activity 2 The helper provides more than half the effort to complete the activity 1 Dependent. The helper does all the effort to complete an activity 7 Patient refused to complete or attempt activity 9 The patient did not perform the activity before the current illness or injury 88 Not attempted due to Medical conditions or safety concerns Eating (FIM): 7 (Per nrsg. Pt is independent with eating.) Eating (QC): 6 Grooming (FIM): 5 (Pt completes in standing in front of sink, SBA with chair if needed. ) Oral Hygiene (QC): 4 Bathing (FIM): 5 (SBA, pt completes using shower bench, hand held shower, and grabbars for stability.) Bathing Location: L Arm, R Arm, L Upper Leg, R Upper Leg, L Lower Leg ( including foot), R Lower Leg (including foot), Chest, Abdomen, Buttocks, Perineal Area Shower/Bathe Self (QC): 4 Upper Body (FIM): 5 (Set up, pt completes in sitting position. ) Upper Body Dressing (QC): 5 Lower Body Dressing (FIM): 3 (Mod A with lifting legs to get into pants and shoes, CGA in standing to hike pants over hips using FWW for stability. ) Lower Body Dressing (QC): 3 On/Off Footwear (QC): 3 (Mod A with lifting feet to get into shoes, pt uses AE to complete.) Toileting (FIM): 5 (Pt completes in sitting position using BSC and grabbars for stability, SBA.) Toileting Hygiene (QC): 4 Transfers (B, C, W/C) (FIM): 3 (Mod A, EOB raised pt able to go from supine to EOB needing verbal cue to move legs over to edge. CGA on sit to stand using EOB and FWW for stability.) Toilet/Commode Transfer (FIM): 4 (CGA, pt uses grabbars, BSC and FWW for stability.) Toilet Transfer (QC): 4 Shower Transfer(FIM): 4 (CGA, pt uses shower bench, FWW, and grabbars for stability.) Pt takes increased time to complete ADLs. After therapy, PT took over session. OT Short Term Goals Short Term Goals Time Frame: Mar 30, 2018 Lower Body Dressing(FIM): 4 Toilet/Commode Transfer(FIM): 5 Shower Transfer(FIM): 5 Additional Short Term Goals: 1-Demonstrate ADL Tasks, 2-Verbalize Understanding , 3-ImproveStrength/Abdulkadir 1=Demonstrate adherence to instructed precautions during ADL tasks. 2=Patient will verbalize/demonstrate understanding of assistive devices/ modifications for ADL. 3=Patient will improve strength/tolerance for activity to enable patient to perform ADL's. OT Jail Goals Jail Goals Time Frame: Apr 14, 2018 Eating (FIM): 7 Eating (QC): 6 Groomin Oral Hygiene (QC): 6 Bathing(FIM): 6 Shower/Bathe Self (QC): 6 Upper Body Dressing(FIM): 6 Upper Body Dressing (QC): 6 Lower Body Dressing(FIM): 6 Lower Body Dressing (QC): 6 On/Off Footwear (QC): 6 Toileting(FIM): 6 Toileting Hygiene (QC): 6 Toilet/Commode Transfer(FIM): 6 Toilet/Commode Transfer (QC): 6 Shower Transfer(FIM): 6 Additional Goals: 1-Demonstrate ADL Tasks, 2-Verbalize Understanding, 3- ImproveStrength/Abdulkadir 1=Demonstrate adherence to instructed precautions during ADL tasks. 2=Patient will verbalize/demonstrate understanding of assistive devices/ modifications for ADL. 3=Patient will improve strength/tolerance for activity to enable patient to perform ADL's. OT Education/Plan Problem List/Assessment Pt would benefit from skilled OT to increase his independence in basic self care to allow him to safely return home Discharge Recommendations Plan/Recommendations: Continue POC Treatment Plan/Plan of Care Patient would benefit from OT for education, treatment and training to promote independence in ADL's, mobility, safety and/or upper extremity function for ADL' s. Plan of Care: ADL Retraining, Functional Mobility, Group Exercise/Act as Ind ( education, exercise, memory, activity tolerance, functional activities, socialization) Treatment Duration: Apr 14, 2018 Frequency: At least 5 of 7 days/Wk (IRF) Estimated Hrs Per Day: 1.5 hours per day Agreement: Yes Rehab Potential: Fair Time/GCodes Start Time: 08:00 Stop Time: 09:00 Total Time Billed (hr/min): 60 Billed Treatment Time 1 visit- ADL 4 (60 min) KRUPA WEI Mar 24, 2018 09:17
[2018-03-24] MEDS: POLYETHYLENE GLYCOL 17 GM (MIRALAX) PACK PO SCH ×2 (09:57→19:37)
--- NOTE | 2018-03-24 09:57 | Physical Therapy Daily Note ---
PT Daily Note-Current Subjective pt in chair pre tx, agrees to PT, no pain to report, but sore in his legs from yesterday Appearance pt in recliner post tx, w/ phone, call light, tray, all needs met Mental Status Patient Orientation: Person, Place, Time Transfers Functional [place] Measure 0=Not Assessed/NA 4=Minimal Assistance 1=Total Assistance 5=Supervision or Setup 2=Maximal Assistance 6=Modified [place] 3=Moderate Assistance 7=Complete IndependenceIRFPAI Quality Coding Scale 6 Independent with activity with or without an assistive device 5 Patient requires set up or clean up by helper. Patient completes activity by themselves 4 Supervision or touching assist (CGA). [place] provide cues , steadying assist 3 The helper provides less than half the effort to complete the activity 2 The helper provides more than half the effort to complete the activity 1 Dependent. The helper does all the effort to complete an activity 7 Patient refused to complete or attempt activity 9 The patient did not perform the activity before the current illness or injury 88 Not attempted due to Medical conditions or safety concerns Transfers (B, C, W/C) (FIM): 5 Sit to/from Stand: 5 sit<->stand SBA, pt pushes from chair and elevates slowly but is able to stand w /o LOB Weight Bearing Right Lower Extremity: Right Full Weight Bearing Left Lower Extremity: Left Full Weight Bearing Gait Training Does the Patient Walk?: Yes Gait (FIM): 5 Distance: 150'x3, 250', 60' Gait Level of Assist: 5 Gait Persons Needed: 1 Gait Assistive Device: FWW pt ambulates around rehab unit w/ FWW and SBA, pt needs cues to stand up straight and not lean so heavily on walker, gait is slow w/ shuffled steps but no LOB Exercises Standin way Ex=Flex, Abd, Ext Standing Reps: 30 Treatments gait training, functional strengthening Assessment Current Status: Fair Progress increased gait distance and shorter rest breaks needed during exercises PT Short Term Goals Short Term Goals Time Frame: Mar 30, 2018 Gait (FIM): 3 Distance (FIM): 3=150 ft Gait Distance Comment: 150' Gait Level of Assist: 4 Gait Assistive Device: FWW PT [facility] Goals Dural Mechanic Goals PT Dural Mechanic Goals Time Frame: Apr 06, 2018 Transfers (B,C,W/C) (FIM): 5 Sit to Lying (QC): 6 Lying-Sitting on Side/Bed(QC): 6 Sit to Stand (QC): 4 Rollin Roll Left to Right (QC): 6 Chair/Wan-du-Ucavh Xfer(QC): 4 Car Transfer (QC): 4 Does the Patient Walk: Yes Gait (FIM): 5 Distance: 250' Walk 10 feet (QC): 4 Walk 10ft-Uneven Surface(QC): 4 Walk 50ft with 2 Turns (QC): 4 Walk 150 ft (QC): 4 Gait Level of Assist: 5 Gait Assistive Device: FWW Stairs (FIM): 2 # of Steps: 4 1 Step (curb) (QC): 4 4 Steps (QC): 4 Stairs Level Of Assist: 4 PT Plan Problem List Problem List: Activity Tolerance, Functional Strength, Safety, Balance, Gait, Transfer, Bed Mobility Treatment/Plan Treatment Plan: Continue Plan of Care Treatment Plan: Bed Mobility, Concurrent Therapy, Education, Functional Activity Abdulkadir, Functional Strength, Group Therapy, Gait, Safety, Therapeutic Exercise, Transfers Treatment Duration: Apr 13, 2018 Frequency: At least 5 of 7 days/Wk (IRF) Estimated Hrs Per Day: 1.5 hours per day Patient and/or Family Agrees t: Yes Safety Risks/Education Patient Education: Gait Training, Transfer Techniques, Correct Positioning, Safety Issues Teaching Recipient: Patient Teaching Methods: Demonstration, Discussion Response to Teaching: Reinforcement Needed Time/GCodes Time In: 0900 Time Out: 1000 Total Billed Treatment Time: 60 Total Billed Treatment 1 visit GT 40' EX 20' GREGORIA TREVIÑO PT Mar 24, 2018 09:57
--- NOTE | 2018-03-24 11:40 | Occupational Ther Daily Note ---
OT Current Status-Daily Note Subjective Pt alert, sitting in recliner. No c/o pain. Pt agrees to therapy. Mental Status/Objective Patient Orientation: Person, Confused, Place, Time, Situation Functional [place] Measure 0=Not Assessed/NA 4=Minimal Assistance 1=Total Assistance 5=Supervision or Setup 2=Maximal Assistance 6=Modified [place] 3=Moderate Assistance 7=Complete [place] ADL-Treatment Functional [place] Measure 0=Not Assessed/NA 4=Minimal Assistance 1=Total Assistance 5=Supervision or Setup 2=Maximal Assistance 6=Modified [place] 3=Moderate Assistance 7=Complete IndependenceIRFPAI Quality Coding Scale 6 Independent with activity with or without an assistive device 5 Patient requires set up or clean up by helper. Patient completes activity by themselves 4 Supervision or touching assist (CGA). [place] provide cues , steadying assist 3 The helper provides less than half the effort to complete the activity 2 The helper provides more than half the effort to complete the activity 1 Dependent. The helper does all the effort to complete an activity 7 Patient refused to complete or attempt activity 9 The patient did not perform the activity before the current illness or injury 88 Not attempted due to Medical conditions or safety concerns Eating (FIM): 7 (Pt does not have dentures. Pt able to manipulate packaging and uses normal utensils. ) Eating (QC): 6 Pt demonstrates good fine motor skills and strength to complete daily tasks. Pt has own routine and has difficulty taking instruction when modifications of daily tasks are needed for safety. Pt takes increased time to complete eating tasks. After therapy, pt sitting in recliner with call light/ phone within reach. All needs met in room. OT Short Term Goals Short Term Goals Time Frame: Mar 30, 2018 Lower Body Dressing(FIM): 4 Toilet/Commode Transfer(FIM): 5 Shower Transfer(FIM): 5 Additional Short Term Goals: 1-Demonstrate ADL Tasks, 2-Verbalize Understanding , 3-ImproveStrength/Abdulkadir 1=Demonstrate adherence to instructed precautions during ADL tasks. 2=Patient will verbalize/demonstrate understanding of assistive devices/ modifications for ADL. 3=Patient will improve strength/tolerance for activity to enable patient to perform ADL's. OT Skilled Nursing Goals Fingerprint Clerk Goals Time Frame: Apr 14, 2018 Eating (FIM): 7 Eating (QC): 6 Groomin Oral Hygiene (QC): 6 Bathing(FIM): 6 Shower/Bathe Self (QC): 6 Upper Body Dressing(FIM): 6 Upper Body Dressing (QC): 6 Lower Body Dressing(FIM): 6 Lower Body Dressing (QC): 6 On/Off Footwear (QC): 6 Toileting(FIM): 6 Toileting Hygiene (QC): 6 Toilet/Commode Transfer(FIM): 6 Toilet/Commode Transfer (QC): 6 Shower Transfer(FIM): 6 Additional Goals: 1-Demonstrate ADL Tasks, 2-Verbalize Understanding, 3- ImproveStrength/Abdulkadir 1=Demonstrate adherence to instructed precautions during ADL tasks. 2=Patient will verbalize/demonstrate understanding of assistive devices/ modifications for ADL. 3=Patient will improve strength/tolerance for activity to enable patient to perform ADL's. OT Education/Plan Problem List/Assessment Pt would benefit from skilled OT to increase his independence in basic self care to allow him to safely return home Discharge Recommendations Plan/Recommendations: Continue POC Treatment Plan/Plan of Care Patient would benefit from OT for education, treatment and training to promote independence in ADL's, mobility, safety and/or upper extremity function for ADL' s. Plan of Care: ADL Retraining, Functional Mobility, Group Exercise/Act as Ind ( education, exercise, memory, activity tolerance, functional activities, socialization) Treatment Duration: Apr 14, 2018 Frequency: At least 5 of 7 days/Wk (IRF) Estimated Hrs Per Day: 1.5 hours per day Agreement: Yes Rehab Potential: Fair Time/GCodes Start Time: 11:30 Stop Time: 11:50 (20) Total Time Billed (hr/min): 20 Billed Treatment Time 1 visit- ADL 1 (20 min) KRUPA WEI Mar 24, 2018 11:40
--- NOTE | 2018-03-24 11:57 | Oncology Progress Note ---
Subjective Date Seen by a Provider: Mar 24, 2018 Time Seen by a Provider: 11:57 Subjective/Events-last exam Pt was transferred to rehab yesterday. Doing well so far. Goal is to go home sometimes next week. On Prednisone taper at 25mg daily. Physical Exam Vital Signs Vital Signs - First Documented 03/23/18 10:15 Temp 98.6 Pulse 65 Resp 18 B/P (MAP) 168/79 (108) Pulse Ox 97 O2 Delivery Room Air Capillary Refill : Height, Weight, BMI Height: 5'9.00" Weight: 176lbs. 0.0oz. 79.024109mc; 26.0 BMI Method:Stated General Appearance: No Apparent Distress HEENT: PERRL/EOMI Neck: Non Tender, Supple Respiratory: Lungs Clear, No Accessory Muscle Use, No Respiratory Distress Cardiovascular: No JVD Neurologic/Psychiatric: Alert, Oriented x3 Impression & Plan Impression & Plan IMP: 1. Pneumonia, recovering. 2. Mental status change, ? 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 Significantly improved since the Prednisone 50mg daily now on ski patrol director at 25mg daily. 3. Leukopenia and anemia. Will check CBC again next Tuesday. 4. Fever, ?related to vasculitis in addition to pneumonia. Resolved. 5. 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 MRI brain was Negative for metastatic disease. Completion axillary dissection was positive for 7/12 lymph nodes. Started adjuvant immunotherapy with nivolumab on 11/23/17. Completed 8 cycles as of 02/16/18. Last dose 03/16/18 was hold off due to poor performance and lethargy. 6. h/o MGUS. SPEP on 10/19/17 shows decreased paraproteins, and free light chains continue to be negative. Rec: 1. Stay on Prednisone 25mg daily for now. 2. Repeat CBC next Tuesday. 3. Hold off Opdivo treatment. 4. Dr. King will be on vacation next week. Dr Cuba will cover for him. If discharge before 03/31/18, see Dr Cuba at cancer center on 03/31/18Tuesday 10am. I gave pt the appointment card today. I will monitor his CBC next and decide the prednisone taper schedule. Clinical Quality Measures DVT/VTE Risk/Contraindication: Risk Factor Score Per Nursin RFS Level Per Nursing on Admit: 3=High AJ CUBA MD Mar 24, 2018 11:57
--- NOTE | 2018-03-24 14:08 | ST Cognitive Linguistic Eval ---
Speech Evaluation-General Medical Diagnosis pneumonia Onset Date: Mar 18, 2018 Therapy Diagnosis Therapy Diagnosis: Cognition Precautions Precautions/Isolations: Fall Prevention Referral Referring Physician: Reason for Referral: Evaluation/Treatment Medical History Pertinent Medical History: Arthritis, Back Injury, HTN Reviewed History: Yes Social History Current Living Status: Alone Speech PLF-Current Status Prior Level of Function Independent Subjective Pt up in chair. Alert and cooperative. Pain Numeric Pain Scale: 0-No Pain Language Eval: Auditory Comprehends Simple Yes/No Ques: Functional Follows 1-Step Commands: Functional Follows Complex Directions: Functional Follows General Conversations: Functional Language Eval: Verbal Language Completes Spontaneous Greeting: Functional Produces Auto, Serial Info: Functional Word Finding: Functional Requests Basic Needs: Functional States Basic Personal Info: Functional Expresses Complex Ideas: Functional Language Evaluation: Reading NT Objective Cognitive Domain Attention: WNL Memory: Moderate Problem Solving: Mild Objective Results [facility] Cognitive/Communication Screen was administered to assess cognitive- linguistic functioning. Results are as follows: Memory - 3 word recall was 3/3 for immediate; 0/3 for delay and 0/3 for remote delay. Problem Solving - Simple 4/4 correct; Abstract was 2/2 correct and Comparisons was 3/4 correct. Speech/language WNL Oral Motor/Speech Production WNL Impression Moderate memory deficits. Speech/language WNL Communication/Social Cognition Comprehension: 7 Expression: 7 Social Interaction: 7 Problem Solvin Memory: 3 Speech Patient Assess Expression of Ideas/Wants: Expression (4) Understanding Verbal Content: Understands (4) Brief Interview-Mental Status: Yes Repetition of Three Words: Three (3) Temporal Orientation: Year: Correct (3) Temporal Orientation: Month: Accurate within 5 days(2) Temporal Orientation: Day: Correct (1) Recall : Wear to say "Sock": No, could not recall (0) Recall : Color: No, could not recall (0) Recall : Bed: No, could not recall (0) Speech Short Term Goals Short Term Goals Short Term Goals Pt will complete various verbal/auditory memory activities with at least 75% and min assist. Time Frame-ST week Comprehension: 7 Expression: 7 Social Interaction: 5 Problem Solvin Memory: 4 Speech Credit Front Office Developer Goals Credit Front Office Developer Goals Pt will demonstrate functional memory skills for maximum independence in the home setting. Time Frame: 2 weeks Comprehension: 7 Expression: 7 Social Interaction: 7 Problem Solvin Memory: 5 Speech-Plan Patient/Family Goals Patient/Family Goals: to return home Treatment Plan Speech Therapy Treatment Plan: Modify Plan, See Comments (Skilled ST indicate to address memory deficits) Pt agreed to having ST to address memory deficits. Frequency: 5 times per week Estimated Hrs Per Day: .5 hour per day Rehab Potential: Fair Pt/Family Agrees to Plan: Yes Safety Risks/Education Teaching Recipient: Patient Teaching Methods: Discussion Response to Teaching: Verbalize Understanding Time Speech Therapy Time In: 10:15 Speech Therapy Time Out: 10:45 Total Billed Time: 30 Billed Treatment Time 1, SPSNDCOMP MATEO Goode Mar 24, 2018 14:08
--- NOTE | 2018-03-24 14:38 | Physical Therapy Daily Note ---
PT Daily Note-Current Subjective pt in recliner pre tx, agrees to PT, no pain to report, pt toileted prior to starting PT Appearance pt in recliner post, tx w/ phone, call light, tray, all needs met Mental Status Patient Orientation: Person, Place, Time Transfers Functional [place] Measure 0=Not Assessed/NA 4=Minimal Assistance 1=Total Assistance 5=Supervision or Setup 2=Maximal Assistance 6=Modified [place] 3=Moderate Assistance 7=Complete IndependenceIRFPAI Quality Coding Scale 6 Independent with activity with or without an assistive device 5 Patient requires set up or clean up by helper. Patient completes activity by themselves 4 Supervision or touching assist (CGA). [place] provide cues , steadying assist 3 The helper provides less than half the effort to complete the activity 2 The helper provides more than half the effort to complete the activity 1 Dependent. The helper does all the effort to complete an activity 7 Patient refused to complete or attempt activity 9 The patient did not perform the activity before the current illness or injury 88 Not attempted due to Medical conditions or safety concerns Transfers (B, C, W/C) (FIM): 5 Sit to/from Stand: 5 sit<->stand SBA Weight Bearing Right Lower Extremity: Right Full Weight Bearing Left Lower Extremity: Left Full Weight Bearing Gait Training Does the Patient Walk?: Yes Gait (FIM): 5 Distance: 150',60' Gait Level of Assist: 5 Gait Persons Needed: 1 Gait Assistive Device: FWW pt ambulates to/from gym w/ FWW ans SBA, gait is slow w/ shuffled steps, but no LOB Exercises NuStep Minutes: 15 NuStep Workload: 3 Treatments gait training, endurance training Assessment Current Status: Fair Progress improving endurance and mobility PT Short Term Goals Short Term Goals Time Frame: Mar 30, 2018 Gait (FIM): 3 Distance (FIM): 3=150 ft Gait Distance Comment: 150' Gait Level of Assist: 4 Gait Assistive Device: FWW PT Addiction Professional Goals Prison Goals PT Addiction Professional Goals Time Frame: Apr 06, 2018 Transfers (B,C,W/C) (FIM): 5 Sit to Lying (QC): 6 Lying-Sitting on Side/Bed(QC): 6 Sit to Stand (QC): 4 Rollin Roll Left to Right (QC): 6 Chair/Cxs-le-Lebcg Xfer(QC): 4 Car Transfer (QC): 4 Does the Patient Walk: Yes Gait (FIM): 5 Distance: 250' Walk 10 feet (QC): 4 Walk 10ft-Uneven Surface(QC): 4 Walk 50ft with 2 Turns (QC): 4 Walk 150 ft (QC): 4 Gait Level of Assist: 5 Gait Assistive Device: FWW Stairs (FIM): 2 # of Steps: 4 1 Step (curb) (QC): 4 4 Steps (QC): 4 Stairs Level Of Assist: 4 PT Plan Problem List Problem List: Activity Tolerance, Functional Strength, Safety, Balance, Gait, Transfer, Bed Mobility Treatment/Plan Treatment Plan: Continue Plan of Care Treatment Plan: Bed Mobility, Concurrent Therapy, Education, Functional Activity Abdulkadir, Functional Strength, Group Therapy, Gait, Safety, Therapeutic Exercise, Transfers Treatment Duration: Apr 13, 2018 Frequency: At least 5 of 7 days/Wk (IRF) Estimated Hrs Per Day: 1.5 hours per day Patient and/or Family Agrees t: Yes Safety Risks/Education Patient Education: Gait Training, Transfer Techniques, Correct Positioning, Safety Issues Teaching Recipient: Patient Teaching Methods: Demonstration, Discussion Response to Teaching: Reinforcement Needed Time/GCodes Time In: 1300 Time Out: 1330 Total Billed Treatment Time: 30 Total Billed Treatment 1 visit GT 15' EX15' GREGORIA TREVIÑO PT Mar 24, 2018 14:38
[2018-03-24 17:32] VITALS: BP 145/68
[2018-03-24] MEDS: lisINopril 20 MG (PRINIVIL) TABLET PO SCH (20:22)
[2018-03-25] MEDS: predniSONE 10 MG TAB PO SCH (06:31)
[2018-03-25] MEDS: OMEGA 3 (FISH OIL) 1000 MG CAP PO SCH ×2 (06:31→16:39)
[2018-03-25 06:35] VITALS: BP 166/77
[2018-03-25] MEDS: CELECOXIB 100 MG (CeleBREX) CAP PO SCH (08:16)
[2018-03-25] MEDS: amLODIPine 10 MG (NORVASC) TAB PO SCH (08:16)
[2018-03-25] MEDS: NEBIVOLOL 5 MG TAB (BYSTOLIC) PO SCH (08:16)
[2018-03-25] MEDS: FAMOTIDINE 20 MG (PEPCID) TABLET PO SCH ×2 (08:16→19:48)
[2018-03-25] MEDS: ASPIRIN E.C. 81 MG (ECOTRIN) TAB PO SCH (08:16)
[2018-03-25] MEDS: LORATADINE (CLARITIN) 10 MG TAB PO SCH (08:16)
[2018-03-25] MEDS: POLYETHYLENE GLYCOL 17 GM (MIRALAX) PACK PO SCH ×2 (08:19→19:35)
--- NOTE | 2018-03-25 09:50 | Physical Therapy Daily Note ---
PT Daily Note-Current Subjective Pt. c/o the bed is uncomfortable, the chair is too hard to come up from (he has 2 lift recline chairs at home) and the walker is too short. PT addressed all these c/o. ( see below) Pain Location: No Pain Reported Mental Status Patient Orientation: Normal For Age Transfers Functional [place] Measure 0=Not Assessed/NA 4=Minimal Assistance 1=Total Assistance 5=Supervision or Setup 2=Maximal Assistance 6=Modified [place] 3=Moderate Assistance 7=Complete IndependenceIRFPAI Quality Coding Scale 6 Independent with activity with or without an assistive device 5 Patient requires set up or clean up by helper. Patient completes activity by themselves 4 Supervision or touching assist (CGA). [place] provide cues , steadying assist 3 The helper provides less than half the effort to complete the activity 2 The helper provides more than half the effort to complete the activity 1 Dependent. The helper does all the effort to complete an activity 7 Patient refused to complete or attempt activity 9 The patient did not perform the activity before the current illness or injury 88 Not attempted due to Medical conditions or safety concerns Transfers (B, C, W/C) (FIM): 3 (needed min t mod assist from standard arm chair in gym and at tables, SBa with lift recline chair or pillows in standard chair) Scootin Sit to/from Stand: 3 standard recliner removed from room and lift recline chair put in room, pt. trained in its use and stated it was more accomodating as his leg strength has been diminished for quite some time secondary to nuerological/ spinal issues etc Weight Bearing Right Lower Extremity: Right Full Weight Bearing Left Lower Extremity: Left Full Weight Bearing Gait Training Does the Patient Walk?: Yes Gait (FIM): 5 Distance (FIM): 3=150 ft (200x2,150) Gait Level of Assist: 5 Gait Persons Needed: 1 Gait Assistive Device: FWW low, flexed at trunk, appears to compensate for quad weakness with trunk and hip flexion, head down at times, pt. requested taller FWW, then requested tennis balls on the walker, all done, pt. still not sure he prefers the taller FWW but kept it. Exercises Seated Therapy Exercises: Ankle pumps, Sit to stand, Long arc quads, Hip flexion, Hip abd/add Seated Reps: 20 NuStep Minutes: 10 NuStep Workload: 1 Treatments seated leg presses on nustep x 12 Assessment Current Status: Good Progress pt. loves to talk and tell his story many times, must be interrupted to keep him on task PT Short Term Goals Short Term Goals Time Frame: Mar 30, 2018 Gait (FIM): 3 Distance (FIM): 3=150 ft Gait Distance Comment: 150' Gait Level of Assist: 4 Gait Assistive Device: FWW PT Care Home Goals Care Home Goals PT Judge Goals Time Frame: Apr 06, 2018 Transfers (B,C,W/C) (FIM): 5 Sit to Lying (QC): 6 Lying-Sitting on Side/Bed(QC): 6 Sit to Stand (QC): 4 Rollin Roll Left to Right (QC): 6 Chair/Vyc-ea-Ddnpg Xfer(QC): 4 Car Transfer (QC): 4 Does the Patient Walk: Yes Gait (FIM): 5 Distance: 250' Walk 10 feet (QC): 4 Walk 10ft-Uneven Surface(QC): 4 Walk 50ft with 2 Turns (QC): 4 Walk 150 ft (QC): 4 Gait Level of Assist: 5 Gait Assistive Device: FWW Stairs (FIM): 2 # of Steps: 4 1 Step (curb) (QC): 4 4 Steps (QC): 4 Stairs Level Of Assist: 4 PT Plan Treatment/Plan Treatment Plan: Continue Plan of Care Treatment Plan: Bed Mobility, Concurrent Therapy, Education, Functional Activity Abdulkadir, Functional Strength, Group Therapy, Gait, Safety, Therapeutic Exercise, Transfers Treatment Duration: Apr 13, 2018 Frequency: At least 5 of 7 days/Wk (IRF) Estimated Hrs Per Day: 1.5 hours per day Patient and/or Family Agrees t: Yes Safety Risks/Education Patient Education: Gait Training, Transfer Techniques, Correct Positioning, Disease Process, Safety Issues Teaching Recipient: Patient Teaching Methods: Demonstration, Discussion Response to Teaching: Verbalize Understanding, Return Demonstration, Reinforcement Needed Time/GCodes Time In: 845 Time Out: 930 Total Billed Treatment Time: 45 Total Billed Treatment 1,GT15m,FA10m,EX20m G Codes Necessary: NEIL Do SOLE ROUNDER Mar 25, 2018 09:49
[2018-03-25 17:35] VITALS: BP 155/66
[2018-03-25] MEDS: lisINopril 20 MG (PRINIVIL) TABLET PO SCH (19:48)
[2018-03-26 06:09] VITALS: BP 115/66
[2018-03-26] MEDS: predniSONE 10 MG TAB PO SCH (06:09)
[2018-03-26] MEDS: OMEGA 3 (FISH OIL) 1000 MG CAP PO SCH ×2 (06:09→16:16)
[2018-03-26 08:11] VITALS: BP 165/69
[2018-03-26] MEDS: NEBIVOLOL 5 MG TAB (BYSTOLIC) PO SCH (08:13)
[2018-03-26] MEDS: FAMOTIDINE 20 MG (PEPCID) TABLET PO SCH ×2 (08:13→20:23)
[2018-03-26] MEDS: LORATADINE (CLARITIN) 10 MG TAB PO SCH (08:13)
[2018-03-26] MEDS: CELECOXIB 100 MG (CeleBREX) CAP PO SCH (08:13)
[2018-03-26] MEDS: ASPIRIN E.C. 81 MG (ECOTRIN) TAB PO SCH (08:13)
[2018-03-26] MEDS: POLYETHYLENE GLYCOL 17 GM (MIRALAX) PACK PO SCH ×2 (08:14→20:24)
[2018-03-26] MEDS: amLODIPine 10 MG (NORVASC) TAB PO SCH (08:14)
[2018-03-26 16:17] VITALS: BP 144/67
--- NOTE | 2018-03-26 18:40 | PM & R (SOAP) Progress Note ---
Subjective This was a face to face visit with the patient. Date Seen by Provider: Mar 26, 2018 Time Seen by Provider: 17:40 Subjective/Events-last exam Patient was seen in his room this evening Patient mod assist for transfers Date Identified: Mar 26, 2018 Time Identified: 18:00 Medication Intervention: Prednisone taper discussed case with medonc tuesday03-24-18 Objective Physician Exam Last Set of Vital Signs Vital Signs Date Time Temp Pulse Resp B/P (MAP) Pulse Ox O2 Delivery O2 Flow Rate FiO2 03/26/18 16:17 99.4 53 18 144/67 (92) 98 Room Air Capillary Refill : I&O Intake and Output 03/26/18 00:00 Intake Total 1420 ml Balance 1420 ml Intake Oral 1420 ml # Voids 6 # Bowel Movements 1 General: Alert, Oriented X3, Cooperative, No Acute Distress HEENT: Atraumatic, PERRLA, EOMI, Mucous Memb Moist/[place]: Supple, No JVD Lungs: Clear to Auscultation Heart: Regular Rate Abdomen: Normal Bowel Sounds, Soft, No Tenderness Extremities: Other (TRACE EDEMA) Neuro: Other (wEAKNESS bles rt^ LEFT) Assessment/Plan Assessment and Plan 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
[2018-03-26] MEDS: lisINopril 20 MG (PRINIVIL) TABLET PO SCH (20:23)
[2018-03-27 05:13] VITALS: BP 166/73
[2018-03-27] MEDS: OMEGA 3 (FISH OIL) 1000 MG CAP PO SCH ×2 (06:44→16:43)
[2018-03-27] MEDS: predniSONE 10 MG TAB PO SCH (06:44)
--- NOTE | 2018-03-27 08:00 | Occupational Ther Daily Note ---
OT Current Status-Daily Note Subjective Pt alert, lying in bed. Pt stated "he needed to get going and take a shower". No c/o pain. Mental Status/Objective Patient Orientation: Person, Confused, Place, Time, Situation Functional [place] Measure 0=Not Assessed/NA 4=Minimal Assistance 1=Total Assistance 5=Supervision or Setup 2=Maximal Assistance 6=Modified [place] 3=Moderate Assistance 7=Complete [place] ADL-Treatment Functional [place] Measure 0=Not Assessed/NA 4=Minimal Assistance 1=Total Assistance 5=Supervision or Setup 2=Maximal Assistance 6=Modified [place] 3=Moderate Assistance 7=Complete IndependenceIRFPAI Quality Coding Scale 6 Independent with activity with or without an assistive device 5 Patient requires set up or clean up by helper. Patient completes activity by themselves 4 Supervision or touching assist (CGA). [place] provide cues , steadying assist 3 The helper provides less than half the effort to complete the activity 2 The helper provides more than half the effort to complete the activity 1 Dependent. The helper does all the effort to complete an activity 7 Patient refused to complete or attempt activity 9 The patient did not perform the activity before the current illness or injury 88 Not attempted due to Medical conditions or safety concerns Eating (FIM): 7 (Pt able to manipulate packaging and uses normal utensils.) Eating (QC): 6 Grooming (FIM): 6 (In sitting position in front of sink, pt able to complete. ) Oral Hygiene (QC): 6 Bathing (FIM): 5 (SBA, Pt completes using shower bench and hand held shower. Pt would not take off socks during shower due to pt worrying about slipping in shower. Other modifications to prevent slipping was offered so that pt could wash feet effectively. Pt refused to attempt any recommendations.) Bathing Location: L Arm, R Arm, L Upper Leg, R Upper Leg, L Lower Leg ( including foot), R Lower Leg (including foot), Chest, Abdomen, Buttocks, Perineal Area Shower/Bathe Self (QC): 4 Upper Body (FIM): 5 (Set up. Pt completes in sitting position.) Upper Body Dressing (QC): 5 Lower Body Dressing (FIM): 3 (Mod A with lifting legs to get into pants and shoes, CGA in standing to hike pants over hips using FWW for stability.) Lower Body Dressing (QC): 3 On/Off Footwear (QC): 3 (Mod A with lifting feet to get into shoes, pt uses AE to complete.) Transfers (B, C, W/C) (FIM): 4 (Mod A, EOB raised pt able to go from supine to EOB needing verbal cue and assistance to move legs over to edge. CGA on sit to stand using EOB and FWW for stability) Shower Transfer(FIM): 4 (CGA, pt uses FWW, grabbars and shower bench for stability. ) Pt takes increased amount of time on ADLs. Pt has his own routine and does not do well with trying other techniques. After therapy, pt sitting in recliner finishing up breakfast with call light/phone within reach. All needs met in room. OT Short Term Goals Short Term Goals Time Frame: Mar 30, 2018 Lower Body Dressing(FIM): 4 Toilet/Commode Transfer(FIM): 5 Shower Transfer(FIM): 5 Comprehension(FIM): 7 Expression(FIM): 7 Social Interaction(FIM): 5 Problem Solving(FIM): 5 Memory(FIM): 4 Additional Short Term Goals: 1-Demonstrate ADL Tasks, 2-Verbalize Understanding , 3-ImproveStrength/Abdulkadir 1=Demonstrate adherence to instructed precautions during ADL tasks. 2=Patient will verbalize/demonstrate understanding of assistive devices/ modifications for ADL. 3=Patient will improve strength/tolerance for activity to enable patient to perform ADL's. OT Basket Braider Goals Basket Braider Goals Time Frame: Apr 14, 2018 Eating (FIM): 7 Eating (QC): 6 Groomin Oral Hygiene (QC): 6 Bathing(FIM): 6 Shower/Bathe Self (QC): 6 Upper Body Dressing(FIM): 6 Upper Body Dressing (QC): 6 Lower Body Dressing(FIM): 6 Lower Body Dressing (QC): 6 On/Off Footwear (QC): 6 Toileting(FIM): 6 Toileting Hygiene (QC): 6 Toilet/Commode Transfer(FIM): 6 Toilet/Commode Transfer (QC): 6 Shower Transfer(FIM): 6 Comprehension(FIM): 7 Expression (FIM): 7 Social Interaction(FIM): 7 Problem Solving(FIM): 5 Memory(FIM): 5 Additional Goals: 1-Demonstrate ADL Tasks, 2-Verbalize Understanding, 3- ImproveStrength/Abdulkadir 1=Demonstrate adherence to instructed precautions during ADL tasks. 2=Patient will verbalize/demonstrate understanding of assistive devices/ modifications for ADL. 3=Patient will improve strength/tolerance for activity to enable patient to perform ADL's. OT Education/Plan Problem List/Assessment Pt would benefit from skilled OT to increase his independence in basic self care to allow him to safely return home Discharge Recommendations Plan/Recommendations: Continue POC Treatment Plan/Plan of Care Patient would benefit from OT for education, treatment and training to promote independence in ADL's, mobility, safety and/or upper extremity function for ADL' s. Plan of Care: ADL Retraining, Functional Mobility, Group Exercise/Act as Ind ( education, exercise, memory, activity tolerance, functional activities, socialization) Treatment Duration: Apr 14, 2018 Frequency: At least 5 of 7 days/Wk (IRF) Estimated Hrs Per Day: 1.5 hours per day Agreement: Yes Rehab Potential: Fair Time/GCodes Start Time: 07:00 Stop Time: 08:15 Total Time Billed (hr/min): 75 Billed Treatment Time 1 visit- ADL 5 (75 min) KRUPA WEI Mar 27, 2018 08:00
[2018-03-27 08:45] VITALS: BP 128/55
[2018-03-27] MEDS: LORATADINE (CLARITIN) 10 MG TAB PO SCH (08:50)
[2018-03-27] MEDS: FAMOTIDINE 20 MG (PEPCID) TABLET PO SCH ×2 (08:50→20:39)
[2018-03-27] MEDS: CELECOXIB 100 MG (CeleBREX) CAP PO SCH (08:50)
[2018-03-27] MEDS: ASPIRIN E.C. 81 MG (ECOTRIN) TAB PO SCH (08:51)
[2018-03-27] MEDS: NEBIVOLOL 5 MG TAB (BYSTOLIC) PO SCH (08:51)
[2018-03-27] MEDS: amLODIPine 10 MG (NORVASC) TAB PO SCH (08:51)
[2018-03-27] MEDS: POLYETHYLENE GLYCOL 17 GM (MIRALAX) PACK PO SCH ×2 (08:58→20:39)
--- NOTE | 2018-03-27 10:58 | Physical Therapy Daily Note ---
PT Daily Note-Current Subjective pt in recliner pre tx, agrees to PT, no pain to report, pt toileted pre tx Appearance pt in recliner post tx, w/ phone, call light, tray, all needs met Mental Status Patient Orientation: Person, Confused, Place Transfers Functional [place] Measure 0=Not Assessed/NA 4=Minimal Assistance 1=Total Assistance 5=Supervision or Setup 2=Maximal Assistance 6=Modified [place] 3=Moderate Assistance 7=Complete IndependenceIRFPAI Quality Coding Scale 6 Independent with activity with or without an assistive device 5 Patient requires set up or clean up by helper. Patient completes activity by themselves 4 Supervision or touching assist (CGA). [place] provide cues , steadying assist 3 The helper provides less than half the effort to complete the activity 2 The helper provides more than half the effort to complete the activity 1 Dependent. The helper does all the effort to complete an activity 7 Patient refused to complete or attempt activity 9 The patient did not perform the activity before the current illness or injury 88 Not attempted due to Medical conditions or safety concerns Transfers (B, C, W/C) (FIM): 4 Supine to/from Sit: 3 Sit to/from Stand: 4 sit<->stand CGA, [place] w/ from lower surfaces, supine<->sit modA w/ assistance needed for both legs into/out of bed, and sitting up Weight Bearing Right Lower Extremity: Right Full Weight Bearing Left Lower Extremity: Left Full Weight Bearing Gait Training Does the Patient Walk?: Yes Gait (FIM): 5 Distance (FIM): 3=150 ft Distance: 200', 100' Gait Level of Assist: 5 Gait Persons Needed: 1 Gait Assistive Device: FWW pt ambulates to/from gym w/ SBA using FWW, gait is slow w/ shuffled steps, pt demonstrates flexed posture and needs cues for standing up straight Exercises Supine Ex: Knee to chest (AAROM), Short Arc Quads (RLE AAROM) Supine Reps: 30 NuStep Minutes: 15 NuStep Workload: 5 Treatments gait training, endurance training, functional strengthening Assessment Current Status: Fair Progress improved gait distance and activity tolerance PT Short Term Goals Short Term Goals Time Frame: Mar 30, 2018 Gait (FIM): 3 Distance (FIM): 3=150 ft Gait Distance Comment: 150' Gait Level of Assist: 4 Gait Assistive Device: FWW PT Usp Goals Sack Department Supervisor Goals PT Sack Department Supervisor Goals Time Frame: Apr 06, 2018 Transfers (B,C,W/C) (FIM): 5 Sit to Lying (QC): 6 Lying-Sitting on Side/Bed(QC): 6 Sit to Stand (QC): 4 Rollin Roll Left to Right (QC): 6 Chair/Sku-fo-Qsjpc Xfer(QC): 4 Car Transfer (QC): 4 Does the Patient Walk: Yes Gait (FIM): 5 Distance: 250' Walk 10 feet (QC): 4 Walk 10ft-Uneven Surface(QC): 4 Walk 50ft with 2 Turns (QC): 4 Walk 150 ft (QC): 4 Gait Level of Assist: 5 Gait Assistive Device: FWW Stairs (FIM): 2 # of Steps: 4 1 Step (curb) (QC): 4 4 Steps (QC): 4 Stairs Level Of Assist: 4 PT Plan Problem List Problem List: Activity Tolerance, Functional Strength, Safety, Balance, Gait, Transfer, Bed Mobility Treatment/Plan Treatment Plan: Continue Plan of Care Treatment Plan: Bed Mobility, Concurrent Therapy, Education, Functional Activity Abdulkadir, Functional Strength, Group Therapy, Gait, Safety, Therapeutic Exercise, Transfers Treatment Duration: Apr 13, 2018 Frequency: At least 5 of 7 days/Wk (IRF) Estimated Hrs Per Day: 1.5 hours per day Patient and/or Family Agrees t: Yes Safety Risks/Education Patient Education: Gait Training, Transfer Techniques, Correct Positioning, Safety Issues Teaching Recipient: Patient Teaching Methods: Demonstration, Discussion Response to Teaching: Reinforcement Needed Time/GCodes Time In: 0900 Time Out: 1000 Total Billed Treatment Time: 60 Total Billed Treatment 1 visit GT 15' EX 35' FA 10' GREGORIA TREVIÑO PT Mar 27, 2018 10:58
--- NOTE | 2018-03-27 13:12 | Speech Therapy Daily Note ---
Speech Daily Progress Note Subjective Date Seen by Provider: Mar 27, 2018 Time Seen by Provider: 10:00 Pt up in chair. Pain Numeric Pain Scale: 0-No Pain Objective Memory - Picture recall after 20 minutes. Pt verbalized out loud what he saw in the picture to facilitate recall. Pt was approximately 60% accurate/ Word List Retention - pt was read 4 word and then asked a question using one of the four words. The pt was 50% accurate. The pt does not put forth much effort on these activities. Assessment Assessment Current Status: Fair Progress Treatment Plan Continue Plan of Care Communication Comprehension: 7 Expression: 7 Social Cognition Social Interaction: 7 Problem Solvin Memory: 3 Speech Short Term Goals Short Term Goals Short Term Goals Pt will complete various verbal/auditory memory activities with at least 75% and min assist. Time Frame-ST week Comprehension: 7 Expression: 7 Social Interaction: 5 Problem Solvin Memory: 4 Speech Electrician [employer] Goals [employer]ian [employer] Goals Pt will demonstrate functional memory skills for maximum independence in the home setting. Time Frame: 2 weeks Comprehension: 7 Expression: 7 Social Interaction: 7 Problem Solvin Memory: 5 Speech-Plan Patient/Family Goals Patient/Family Goals: to return home Treatment Plan Speech Therapy Treatment Plan: Continue Plan of Care Pt appears to be not interested in ST. Frequency: 5 times per week Estimated Hrs Per Day: .5 hour per day Rehab Potential: Fair Pt/Family Agrees to Plan: Yes Safety Risks/Education Teaching Recipient: Patient Teaching Methods: Discussion Response to Teaching: Verbalize Understanding Time Speech Therapy Time In: 09:00 Speech Therapy Time Out: 09:30 Total Billed Time: 30 Billed Treatment Time 1, MATEO Sweeney Mar 27, 2018 13:11
--- NOTE | 2018-03-27 15:10 | Physical Therapy Daily Note ---
PT Daily Note-Current Subjective pt in recliner pre tx, agrees to PT, no pain to report Appearance pt in recliner post tx, w/ phone, call light, tray, all needs met Mental Status Patient Orientation: Normal For Age Transfers Functional [place] Measure 0=Not Assessed/NA 4=Minimal Assistance 1=Total Assistance 5=Supervision or Setup 2=Maximal Assistance 6=Modified [place] 3=Moderate Assistance 7=Complete IndependenceIRFPAI Quality Coding Scale 6 Independent with activity with or without an assistive device 5 Patient requires set up or clean up by helper. Patient completes activity by themselves 4 Supervision or touching assist (CGA). [place] provide cues , steadying assist 3 The helper provides less than half the effort to complete the activity 2 The helper provides more than half the effort to complete the activity 1 Dependent. The helper does all the effort to complete an activity 7 Patient refused to complete or attempt activity 9 The patient did not perform the activity before the current illness or injury 88 Not attempted due to Medical conditions or safety concerns Transfers (B, C, W/C) (FIM): 4 Sit to/from Stand: 4 Josiah sit->stand from recliner and park bench outside Weight Bearing Right Lower Extremity: Right Full Weight Bearing Left Lower Extremity: Left Full Weight Bearing Gait Training Does the Patient Walk?: Yes Gait (FIM): 5 Distance: 400'x2 Gait Level of Assist: 5 Gait Persons Needed: 1 Gait Assistive Device: FWW pt ambulates to/from courtyard outside of hospital w/ SBA using FWW. Gait is slow w/ shuffled steps to start, but gradually increases speed and stride length Treatments gait training Assessment Current Status: Fair Progress increased gait distance and endurance PT Short Term Goals Short Term Goals Time Frame: Mar 30, 2018 Gait (FIM): 3 Distance (FIM): 3=150 ft Gait Distance Comment: 150' Gait Level of Assist: 4 Gait Assistive Device: FWW PT Prison Goals Manager Client Support Goals PT Prison Goals Time Frame: Apr 06, 2018 Transfers (B,C,W/C) (FIM): 5 Sit to Lying (QC): 6 Lying-Sitting on Side/Bed(QC): 6 Sit to Stand (QC): 4 Rollin Roll Left to Right (QC): 6 Chair/Rvi-bd-Iebef Xfer(QC): 4 Car Transfer (QC): 4 Does the Patient Walk: Yes Gait (FIM): 5 Distance: 250' Walk 10 feet (QC): 4 Walk 10ft-Uneven Surface(QC): 4 Walk 50ft with 2 Turns (QC): 4 Walk 150 ft (QC): 4 Gait Level of Assist: 5 Gait Assistive Device: FWW Stairs (FIM): 2 # of Steps: 4 1 Step (curb) (QC): 4 4 Steps (QC): 4 Stairs Level Of Assist: 4 PT Plan Problem List Problem List: Activity Tolerance, Functional Strength, Safety, Balance, Gait, Transfer, Bed Mobility Treatment/Plan Treatment Plan: Continue Plan of Care Treatment Plan: Bed Mobility, Concurrent Therapy, Education, Functional Activity Abdulkadir, Functional Strength, Group Therapy, Gait, Safety, Therapeutic Exercise, Transfers Treatment Duration: Apr 13, 2018 Frequency: At least 5 of 7 days/Wk (IRF) Estimated Hrs Per Day: 1.5 hours per day Patient and/or Family Agrees t: Yes Safety Risks/Education Patient Education: Gait Training, Transfer Techniques, Correct Positioning, Safety Issues Teaching Recipient: Patient Teaching Methods: Demonstration, Discussion Response to Teaching: Reinforcement Needed Time/GCodes Time In: 1400 Time Out: 1430 Total Billed Treatment Time: 30 Total Billed Treatment 1 visit GT x 2 30' ANATOLIY LERNER PT Mar 27, 2018 15:10
[2018-03-27 15:54] LABS: BASOPHILS % (AUTO) 0 % (0-10); EOSINOPHILS % (AUTO) 0 % (0-10); HEMATOCRIT 30 % (40-54); HEMOGLOBIN 10.2 G/DL (13.3-17.7); LYMPHOCYTES # (AUTO) 0.9 X 10^3 (1.0-4.0); LYMPHOCYTES % (AUTO) 14 % (12-44); MEAN CORPUSCULAR HEMOGLOBIN 30 PG (25-34); MEAN CORPUSCULAR HGB CONC 34 G/DL (32-36); MEAN CORPUSCULAR VOLUME 86 FL (80-99); MEAN PLATELET VOLUME 9.6 FL (7.4-10.4); MONOCYTES # (AUTO) 0.4 X 10^3 (0.0-1.0); MONOCYTES % (AUTO) 6 % (0-12); NEUTROPHILS # (AUTO) 5.5 X 10^3 (1.8-7.8); NEUTROPHILS % (AUTO) 81 % (42-75); PLATELET COUNT 380 10^3/uL (130-400); RED BLOOD COUNT 3.46 10^6/uL (4.35-5.85); RED CELL DISTRIBUTION WIDTH 14.2 % (10.0-14.5); WHITE BLOOD COUNT 6.8 10^3/uL (4.3-11.0)
[2018-03-27 16:00] VITALS: BP 113/53
--- NOTE | 2018-03-27 16:05 | Oncology Progress Note ---
Subjective Date Seen by a Provider: Mar 27, 2018 Time Seen by a Provider: 16:02 Subjective/Events-last exam Follow up blood work results. Repeat CBC today. Data Review Labs Laboratory Tests 03/27/18 15:25 Laboratory Tests 03/27/18 15:25: Red Blood Count 3.46L, Hemoglobin 10.2L, Hematocrit 30L, Neutrophils (%) (Auto) 81H, Lymphocytes # (Auto) 0.9L Laboratory Tests 03/27/18 15:25 Physical Exam Vital Signs Vital Signs - First Documented 03/23/18 10:15 Temp 98.6 Pulse 65 Resp 18 B/P (MAP) 168/79 (108) Pulse Ox 97 O2 Delivery Room Air Capillary Refill : Height, Weight, BMI Height: 5'9.00" Weight: 179lbs. 1.6oz. 81.162624sz; 26.0 BMI Method:Stated General Appearance: No Apparent Distress Impression & Plan Impression & Plan IMP: 1. Pneumonia, recovering. 2. Mental status change, ? 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 Significantly improved since the Prednisone 50mg daily now on shaker screen operator at 25mg daily. 3. Leukopenia and anemia. Will check CBC again next Tuesday. 4. Fever, ?related to vasculitis in addition to pneumonia. Resolved. 5. 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 MRI brain was Negative for metastatic disease. Completion axillary dissection was positive for 7/12 lymph nodes. Started adjuvant immunotherapy with nivolumab on 11/23/17. Completed 8 cycles as of 02/16/18. Last dose 03/16/18 was hold off due to poor performance and lethargy. 6. h/o MGUS. SPEP on 10/19/17 shows decreased paraproteins, and free light chains continue to be negative. Rec: 1. Stay on Prednisone 25mg daily for 3 more days. Then taper more. 2. Repeat CBC next Tuesday. 3. Hold off Opdivo treatment. 4. Dr. King will be on vacation this week. Dr Cuba will cover for him. If discharge before 03/31/18, see Dr Cuba at cancer center on 03/31/18Tuesday 10am. I gave pt the appointment card today. Clinical Quality Measures DVT/VTE Risk/Contraindication: Risk Factor Score Per Nursin RFS Level Per Nursing on Admit: 3=High AJ CUBA MD Mar 27, 2018 16:05
[2018-03-27] MEDS: lisINopril 20 MG (PRINIVIL) TABLET PO SCH (20:39)
--- NOTE | 2018-03-27 21:07 | PM & R (SOAP) Progress Note ---
Subjective This was a face to face visit with the patient. Date Seen by Provider: Mar 27, 2018 Time Seen by Provider: 20:40 Subjective/Events-last exam Patient was seen in his room this evening Patient Mod assist for transfers Unable to active knee ext on rt against gravity.CBC noted Date Identified: Mar 27, 2018 Time Identified: 20:40 Medication Intervention: steroid taper Review of Systems Neurological: Weakness Objective Physician Exam Last Set of Vital Signs Vital Signs Date Time Temp Pulse Resp B/P (MAP) Pulse Ox O2 Delivery O2 Flow Rate FiO2 03/27/18 16:00 98.6 49 16 113/53 (73) 03/27/18 08:45 98 Room Air Capillary Refill : I&O Intake and Output 03/27/18 00:00 Intake Total 950 ml Balance 950 ml Intake Oral 950 ml # Voids 5 # Bowel Movements 1 General: Alert, Oriented X3, Cooperative, No Acute Distress HEENT: Atraumatic, PERRLA, EOMI, Mucous Memb Moist/[place] Neck: Supple, No JVD Lungs: Clear to Auscultation Heart: Regular Rate Abdomen: Normal Bowel Sounds, Soft, No Tenderness Extremities: Other (TRACE EDEMA) Neuro: Other (wEAKNESS bles rt^ LEFT) Results Lab Data Laboratory Tests 03/27/18 15:25: White Blood Count 6.8, Red Blood Count 3.46L, Hemoglobin 10.2L, Hematocrit 30L, Mean Corpuscular Volume 86, Mean Corpuscular Hemoglobin 30, Mean Corpuscular Hemoglobin Concent 34, Red Cell Distribution Width 14.2, Platelet Count 380, Mean Platelet Volume 9.6, Neutrophils (%) (Auto) 81H, Lymphocytes (%) (Auto) 14 , Monocytes (%) (Auto) 6, Eosinophils (%) (Auto) 0, Basophils (%) (Auto) 0, Neutrophils # (Auto) 5.5, Lymphocytes # (Auto) 0.9L, Monocytes # (Auto) 0.4, Eosinophils # (Auto) 0.0, Basophils # (Auto) 0.0 Assessment/Plan Assessment and Plan 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
--- NOTE | 2018-03-27 21:13 | Individualized Plan of Care ---
Individualized Plan of Care Rehab Nursing IPOC Order Admission Date Mar 23, 2018 at 10:15 Current Orders Orders Famotidine Tablet (Pepcid Tablet) (03/23/18 21:00) Admission Arrival Bed Request (03/23/18 10:15) Heart Healthy (03/23/18 Lunch) Patient Visit (03/23/18 ) Pt Eval Moderate Complexity (03/23/18 ) Gait Training, Ea 15 Min (03/23/18 ) Exercise Therap, Ea 15 Min (03/23/18 ) Admission Order(Inpt,Obs,Sdc) (03/23/18 13:27) Vital Signs: Routine (Order) 08,16,00 (03/23/18 13:27) Sequential Compression Device 08,20 (03/23/18 13:27) Fumigator And Sterilizer-Inpt Rehab Con (03/23/18 13:27) Rehab Nursing Orders-Ipoc (03/23/18 13:27) Turn And Reposition Q2HR (03/23/18 13:27) Intake & Output 06,14,22 (03/23/18 13:27) Weekly Weight (Lbs) WEEK (03/23/18 13:27) Code/Resuscitation (03/23/18 13:27) Code/Resuscitation (03/23/18 13:30) Acetaminophen Tablet (Tylenol Tablet) (03/23/18 13:30) Ibuprofen Tablet (Motrin Tablet) (03/23/18 13:30) Polyethylene Glycol Powder Pkt (Miralax (03/23/18 21:00) Amlodipine Tablet (Norvasc Tablet) (03/24/18 09:00) Lisinopril Tablet (Zestril Tablet) (03/23/18 21:00) Nebivolol Tablet (Bystolic Tablet) (03/24/18 09:00) Aspirin Enteric Coated Tablet (Ecotrin T (03/24/18 09:00) Loratadine Tablet (Claritin Tablet) (03/24/18 09:00) Celecoxib Capsule (Celebrex Capsule) (03/24/18 09:00) [place] 3 Capsule (Fish Oil Capsule) (03/23/18 17:00) Consult Physician (03/23/18 13:41) Physical Therapy Rehab Orders (03/23/18 13:58) Occupational Therapy Rehab Ord (03/23/18 13:58) Speech Therapy Rehab Orders (03/23/18 13:58) Prednisone Tablet (Deltasone Tablet) (03/24/18 07:00) Patient Visit (03/23/18 ) Gait Training, Ea 15 Min (03/23/18 ) Exercise Therap, Ea 15 Min (03/23/18 ) Ambulate 08,12,20 (03/23/18 23:01) Sequential Compression Device 08,20 (03/23/18 23:01) Dvt/Vte Risk - Notifiy Physici 08 (03/23/18 23:01) Automatic Tray (03/24/18 06:38) Influenza Quad (5+Yoa) 2018- (Afluria (03/24/18 07:15) Cbc With Automated Diff (03/27/18 07:58) Patient Visit (03/24/18 ) Gait Training, Ea 15 Min (03/24/18 ) Exercise Therap, Ea 15 Min (03/24/18 ) Patient Visit (03/24/18 ) Speech Sound Lang Comp (03/24/18 ) Patient Visit (03/24/18 ) Exercise Therap, Ea 15 Min (03/24/18 ) Gait Training, Ea 15 Min (03/24/18 ) Patient Visit (03/25/18 ) Gait Training, Ea 15 Min (03/25/18 ) Exercise Therap, Ea 15 Min (03/25/18 ) Functional Activities, Ea 15 (03/25/18 ) Patient Visit (03/27/18 ) Exercise Therap, Ea 15 Min (03/27/18 ) Functional Activities, Ea 15 (03/27/18 ) Gait Training, Ea 15 Min (03/27/18 ) Patient Visit (03/27/18 ) Treat. Speech/Lang/Voice (03/27/18 ) Patient Visit (03/27/18 ) Gait Training, Ea 15 Min (03/27/18 ) Rehab Nursing Orders: Ongoing Assess. of Cognitive Status, Ongoing Assess. of Function Status, Disease Management & Educaiton, DVT Prophylaxis, Fall Prevention, Fluid/Electrolyte/Nutrition Mgmt, Infection Prevention, Medication Management & Education, Management of Risks & Complications, Management of Skin Intergrity, Nutrition Management, Pain Management, Patient/Family Support PT IPOC Problem List: Activity Tolerance, Functional Strength, Safety, Balance, Gait, Transfer, Bed Mobility Treatment Plan: Continue Plan of Care Bed Mobility, Concurrent Therapy, Education, Functional Activity Abdulkadir, Functional Strength, Group Therapy, Gait, Safety, Therapeutic Exercise, Transfers Treatment Duration: Apr 13, 2018 Frequency: At least 5 of 7 days/Wk (IRF) Estimated Hrs Per Day: 1.5 hours per day OT IPOC Problems: Decreased Activ Tolerance, Decreased UE Strength, Dependent Transfers , Impaired Bed Mobility, Impaired Self-Care Skills OT Treatment, Training and Edu: Yes OT Problems Pt would benefit from skilled OT to increase his independence in basic self care to allow him to safely return home Plan of Care: ADL Retraining, Functional Mobility, Group Exercise/Act as Ind ( education, exercise, memory, activity tolerance, functional activities, socialization) Treatment Duration: Apr 14, 2018 Frequency: At least 5 of 7 days/Wk (IRF) Estimated Hrs Per Day: 1.[address] IPOC Speech Therapy Treatment Plan: Continue Plan of Care Treatment Duration: Mar 31, 2018 Frequency: 5 times per week Estimated Hrs Per Day: .5 hour per day Fumigator And Sterilizer/Case Mgmt Fumigator And Sterilizer/Case Managemen: Discharge Planning, Patient/Family Counseling Dietitian/Cash Application Clerk Dietitian/Cash Application Clerk to monitor nutritional status and make changes and/or recommendations as needed and work with speech pathology on dietary upgrades as the occur. Physician IPOC Medical Issues being managed closely and that require the 24 hour availability of a physician:Steroid taper Autoimmune vasculitis with Lower Limb Weakness RT > left HTN Anemia DJD spine IGC code 16 Etiologic DX Pneumonia Medical Issues: DVT Prophylaxis, Falls Precautions, Fluid/Electrolyte/ Nutrition Balance, Infection Protection, Pain Management, Other (List) (as per above) Brief Synthesis of Preadmission Screen, Post-Admission Evaluation, and Therapy Evaluations: 77 yo male who had been Independent who developed Pneumonia resulting in general debil Alos developed weakness in BLES fffffelt to be due to autoimmune response to med used for tratment of melanoma now on steroid taper Being followed by [facility] Medical Prognosis: Good Anticipated Length of Stay: 10-12-18 Modified Independent for adls and mobility skills Anticipated d/c Destination: Home with [facility] DANNA LAWS MD Mar 27, 2018 21:13
[2018-03-28] MEDS: OMEGA 3 (FISH OIL) 1000 MG CAP PO SCH ×2 (06:03→16:18)
[2018-03-28] MEDS: predniSONE 10 MG TAB PO SCH (06:03)
[2018-03-28 06:21] VITALS: BP 168/74
[2018-03-28] MEDS: ASPIRIN E.C. 81 MG (ECOTRIN) TAB PO SCH (07:29)
[2018-03-28] MEDS: CELECOXIB 100 MG (CeleBREX) CAP PO SCH (07:29)
[2018-03-28] MEDS: FAMOTIDINE 20 MG (PEPCID) TABLET PO SCH ×2 (07:29→20:00)
[2018-03-28] MEDS: amLODIPine 10 MG (NORVASC) TAB PO SCH (07:29)
[2018-03-28] MEDS: LORATADINE (CLARITIN) 10 MG TAB PO SCH (07:29)
[2018-03-28] MEDS: POLYETHYLENE GLYCOL 17 GM (MIRALAX) PACK PO SCH ×2 (07:30→20:00)
[2018-03-28 07:31] VITALS: BP 131/70
[2018-03-28] MEDS: NEBIVOLOL 5 MG TAB (BYSTOLIC) PO SCH (09:12)
--- NOTE | 2018-03-28 09:32 | Occupational Ther Daily Note ---
OT Current Status-Daily Note Subjective Pt alert, sitting in recliner. No c/o pain. Pt agrees to therapy. Mental Status/Objective Patient Orientation: Person, Confused, Place, Time, Situation Functional [place] Measure 0=Not Assessed/NA 4=Minimal Assistance 1=Total Assistance 5=Supervision or Setup 2=Maximal Assistance 6=Modified [place] 3=Moderate Assistance 7=Complete [place] ADL-Treatment Functional [place] Measure 0=Not Assessed/NA 4=Minimal Assistance 1=Total Assistance 5=Supervision or Setup 2=Maximal Assistance 6=Modified [place] 3=Moderate Assistance 7=Complete IndependenceIRFPAI Quality Coding Scale 6 Independent with activity with or without an assistive device 5 Patient requires set up or clean up by helper. Patient completes activity by themselves 4 Supervision or touching assist (CGA). [place] provide cues , steadying assist 3 The helper provides less than half the effort to complete the activity 2 The helper provides more than half the effort to complete the activity 1 Dependent. The helper does all the effort to complete an activity 7 Patient refused to complete or attempt activity 9 The patient did not perform the activity before the current illness or injury 88 Not attempted due to Medical conditions or safety concerns Grooming (FIM): 6 (Mod I, pt completes in sitting position in front of sink. ) Oral Hygiene (QC): 6 Bathing (FIM): 5 (Supervision, pt completes using shower bench, hand held shower, and grabbars for stability. Pt would not take off socks during shower due to pt worrying about slipping in shower. Other modifications to prevent slipping was offered so that pt could wash feet effectively. Pt refused to attempt any recommendations ) Bathing Location: L Arm, R Arm, L Upper Leg, R Upper Leg, L Lower Leg ( including foot), R Lower Leg (including foot), Chest, Abdomen, Buttocks, Perineal Area Shower/Bathe Self (QC): 4 Upper Body (FIM): 5 (Set up. Pt completes in sitting position. ) Upper Body Dressing (QC): 5 Lower Body Dressing (FIM): 5 (Set up. Pt completes in sitting, using FWW for stability while standing to hike pants over hips. Pt uses AE to don/doff socks and shoes, SBA. ) Lower Body Dressing (QC): 4 On/Off Footwear (QC): 4 Transfers (B, C, W/C) (FIM): 5 (SBA, pt able to complete using FWW for stability on sit to stand. ) Shower Transfer(FIM): 5 (SBA, pt able to complete using shower bench, grabbars and FWW for stability. ) Other Treatment Pt ambulated to therapy gym using FWW for stability with SBA. Pt completed arm bike 10 min/15 friend resistance needing no rest breaks increasing activity tolerance and UE strength needed for daily functional activity. Pt ambulated back to room using FWW with SBA. Pt takes increased amount of time to complete ADLs and has his own routine that he does not like to change. After therapy, pt sitting in recliner with call light/phone within reach. All needs met in room. OT Short Term Goals Short Term Goals Time Frame: Mar 30, 2018 Lower Body Dressing(FIM): 4 Toilet/Commode Transfer(FIM): 5 Shower Transfer(FIM): 5 Comprehension(FIM): 7 Expression(FIM): 7 Social Interaction(FIM): 5 Problem Solving(FIM): 5 Memory(FIM): 4 Additional Short Term Goals: 1-Demonstrate ADL Tasks, 2-Verbalize Understanding , 3-ImproveStrength/Abdulkadir 1=Demonstrate adherence to instructed precautions during ADL tasks. 2=Patient will verbalize/demonstrate understanding of assistive devices/ modifications for ADL. 3=Patient will improve strength/tolerance for activity to enable patient to perform ADL's. OT Bicycle Repairer Goals Bicycle Repairer Goals Time Frame: Apr 14, 2018 Eating (FIM): 7 Eating (QC): 6 Groomin Oral Hygiene (QC): 6 Bathing(FIM): 6 Shower/Bathe Self (QC): 6 Upper Body Dressing(FIM): 6 Upper Body Dressing (QC): 6 Lower Body Dressing(FIM): 6 Lower Body Dressing (QC): 6 On/Off Footwear (QC): 6 Toileting(FIM): 6 Toileting Hygiene (QC): 6 Toilet/Commode Transfer(FIM): 6 Toilet/Commode Transfer (QC): 6 Shower Transfer(FIM): 6 Comprehension(FIM): 7 Expression (FIM): 7 Social Interaction(FIM): 7 Problem Solving(FIM): 5 Memory(FIM): 5 Additional Goals: 1-Demonstrate ADL Tasks, 2-Verbalize Understanding, 3- ImproveStrength/Abdulkadir 1=Demonstrate adherence to instructed precautions during ADL tasks. 2=Patient will verbalize/demonstrate understanding of assistive devices/ modifications for ADL. 3=Patient will improve strength/tolerance for activity to enable patient to perform ADL's. OT Education/Plan Problem List/Assessment Pt would benefit from skilled OT to increase his independence in basic self care to allow him to safely return home Discharge Recommendations Plan/Recommendations: Continue POC Treatment Plan/Plan of Care Patient would benefit from OT for education, treatment and training to promote independence in ADL's, mobility, safety and/or upper extremity function for ADL' s. Plan of Care: ADL Retraining, Functional Mobility, Group Exercise/Act as Ind ( education, exercise, memory, activity tolerance, functional activities, socialization) Treatment Duration: Apr 14, 2018 Frequency: At least 5 of 7 days/Wk (IRF) Estimated Hrs Per Day: 1.5 hours per day Agreement: Yes Rehab Potential: Fair Time/GCodes Start Time: 08:00 Stop Time: 09:30 Total Time Billed (hr/min): 90 Billed Treatment Time 1 visit- ADL 5 (70 min) EX (20 min) KRUPA WEI Mar 28, 2018 09:32
--- NOTE | 2018-03-28 11:00 | Physical Therapy Daily Note ---
PT Daily Note-Current Subjective pt in recliner pre tx, agrees to PT, reports pain 4/10 in right lower back Appearance pt in recliner post tx w/ phone, call light, tray, all needs met Mental Status Patient Orientation: Normal For Age Transfers Functional [place] Measure 0=Not Assessed/NA 4=Minimal Assistance 1=Total Assistance 5=Supervision or Setup 2=Maximal Assistance 6=Modified [place] 3=Moderate Assistance 7=Complete IndependenceIRFPAI Quality Coding Scale 6 Independent with activity with or without an assistive device 5 Patient requires set up or clean up by helper. Patient completes activity by themselves 4 Supervision or touching assist (CGA). [place] provide cues , steadying assist 3 The helper provides less than half the effort to complete the activity 2 The helper provides more than half the effort to complete the activity 1 Dependent. The helper does all the effort to complete an activity 7 Patient refused to complete or attempt activity 9 The patient did not perform the activity before the current illness or injury 88 Not attempted due to Medical conditions or safety concerns Transfers (B, C, W/C) (FIM): 3 Supine to/from Sit: 3 Sit to/from Stand: 5 sit<->stand SBA, supine<->sit modA w/ getting legs into/out of bed and sitting up Weight Bearing Right Lower Extremity: Right Full Weight Bearing Left Lower Extremity: Left Full Weight Bearing Gait Training Does the Patient Walk?: Yes Gait (FIM): 5 Distance: 400',150' Gait Level of Assist: 5 Gait Persons Needed: 1 Gait Assistive Device: FWW pt ambulates to/from gym w/ SBA using FWW, gait is slow w/ short steps but gradually increases in speed and stride length Exercises Supine Ex: Knee to chest (AAROM), Short Arc Quads (AAROM RLE) Supine Reps: 20 Standing: Sit to Stand Standing Reps: 20 NuStep Minutes: 15 NuStep Workload: 4 Treatments gait training, endurance training, functional strengthening Assessment Current Status: Fair Progress improved gait distance and endurance, decreased assistance needed for SAQs and knee to chest on RLE PT Short Term Goals Short Term Goals Time Frame: Mar 30, 2018 Gait (FIM): 3 Distance (FIM): 3=150 ft Gait Distance Comment: 150' Gait Level of Assist: 4 Gait Assistive Device: FWW PT Molded Parts Inspector Goals Molded Parts Inspector Goals PT Jail Goals Time Frame: Apr 06, 2018 Transfers (B,C,W/C) (FIM): 5 Sit to Lying (QC): 6 Lying-Sitting on Side/Bed(QC): 6 Sit to Stand (QC): 4 Rollin Roll Left to Right (QC): 6 Chair/Tea-dd-Odwbo Xfer(QC): 4 Car Transfer (QC): 4 Does the Patient Walk: Yes Gait (FIM): 5 Distance: 250' Walk 10 feet (QC): 4 Walk 10ft-Uneven Surface(QC): 4 Walk 50ft with 2 Turns (QC): 4 Walk 150 ft (QC): 4 Gait Level of Assist: 5 Gait Assistive Device: FWW Stairs (FIM): 2 # of Steps: 4 1 Step (curb) (QC): 4 4 Steps (QC): 4 Stairs Level Of Assist: 4 PT Plan Problem List Problem List: Activity Tolerance, Functional Strength, Safety, Balance, Gait, Transfer, Bed Mobility Treatment/Plan Treatment Plan: Continue Plan of Care Treatment Plan: Bed Mobility, Concurrent Therapy, Education, Functional Activity Abdulkadir, Functional Strength, Group Therapy, Gait, Safety, Therapeutic Exercise, Transfers Treatment Duration: Apr 13, 2018 Frequency: At least 5 of 7 days/Wk (IRF) Estimated Hrs Per Day: 1.5 hours per day Patient and/or Family Agrees t: Yes Safety Risks/Education Patient Education: Gait Training, Transfer Techniques, Correct Positioning, Safety Issues Teaching Recipient: Patient Teaching Methods: Demonstration, Discussion Response to Teaching: Reinforcement Needed Time/GCodes Time In: 1000 Time Out: 1100 Total Billed Treatment Time: 60 Total Billed Treatment 1 visit GT 15' EX 45' GREGORIA TREVIÑO PT Mar 28, 2018 11:00
--- NOTE | 2018-03-28 12:09 | PM & R (SOAP) Progress Note ---
Subjective This was a face to face visit with the patient. Date Seen by Provider: Mar 28, 2018 Time Seen by Provider: 11:35 Subjective/Events-last exam Patient was seen in his room this AM Patient mod assist for transfers RN notes that Patient bradycardic Hospitalist unavailable current meds reviewed will ask cardiology to see See orders Date Identified: Mar 28, 2018 Time Identified: 11:40 Medication Intervention: Requisition Approver to reviewe and adjuste cardiac meds as needed re bradycardia Review of Systems Neurological: Weakness Objective Physician Exam Last Set of Vital Signs Vital Signs Date Time Temp Pulse Resp B/P (MAP) Pulse Ox O2 Delivery O2 Flow Rate FiO2 03/28/18 08:48 Room Air 03/28/18 07:31 51 131/70 (90) 95 03/28/18 06:21 99.4 18 Capillary Refill : I&O Intake and Output 03/28/18 00:00 Intake Total 1350 ml Balance 1350 ml Intake Oral 1350 ml # Voids 6 # Bowel Movements 1 General: Alert, Oriented X3, Cooperative, No Acute Distress HEENT: Atraumatic, PERRLA, EOMI, Mucous Memb Moist/[place] Neck: Supple, No JVD Lungs: Clear to Auscultation Heart: Regular Rate Abdomen: Normal Bowel Sounds, Soft, No Tenderness Extremities: Other (TRACE EDEMA) Neuro: Other (wEAKNESS bles rt^ LEFT) Results Lab Data Laboratory Tests 03/27/18 15:25: White Blood Count 6.8, Red Blood Count 3.46L, Hemoglobin 10.2L, Hematocrit 30L, Mean Corpuscular Volume 86, Mean Corpuscular Hemoglobin 30, Mean Corpuscular Hemoglobin Concent 34, Red Cell Distribution Width 14.2, Platelet Count 380, Mean Platelet Volume 9.6, Neutrophils (%) (Auto) 81H, Lymphocytes (%) (Auto) 14 , Monocytes (%) (Auto) 6, Eosinophils (%) (Auto) 0, Basophils (%) (Auto) 0, Neutrophils # (Auto) 5.5, Lymphocytes # (Auto) 0.9L, Monocytes # (Auto) 0.4, Eosinophils # (Auto) 0.0, Basophils # (Auto) 0.0 Assessment/Plan Assessment and Plan 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
--- NOTE | 2018-03-28 15:50 | Speech Therapy Daily Note ---
Speech Daily Progress Note Subjective Date Seen by Provider: Mar 28, 2018 Time Seen by Provider: 09:30 Pt up in chair. Pain Numeric Pain Scale: 0-No Pain Objective Memory - Picture recall after 20 minutes was 90% accurate with min assist. Had pt to verbalize out loud what he saw to help facilitate recall later. Which picture is missing from a choice of 3. Pt was 100% accurate with mod assist. Assessment Assessment Current Status: Fair Progress Treatment Plan Continue Plan of Care Communication Comprehension: 7 Expression: 7 Social Cognition Social Interaction: 7 Problem Solvin Memory: 3 Speech Short Term Goals Short Term Goals Short Term Goals Pt will complete various verbal/auditory memory activities with at least 75% and min assist. Time Frame-ST week Comprehension: 7 Expression: 7 Social Interaction: 5 Problem Solvin Memory: 4 Speech Senior Db2 Systems Programmer Goals Senior Db2 Systems Programmer Goals Pt will demonstrate functional memory skills for maximum independence in the home setting. Time Frame: 2 weeks Comprehension: 7 Expression: 7 Social Interaction: 7 Problem Solvin Memory: 5 Speech-Plan Patient/Family Goals Patient/Family Goals: to return home Treatment Plan Speech Therapy Treatment Plan: Continue Plan of Care Pt puts forth minimal effort in therapy and tends to "give up" easily when he can't respond immediately. Usually states, "I dunno". MOLD REPAIR TECHNICIAN encourages pt to think about first before stating I dunno but then responds again with same response. Treatment Duration: Mar 31, 2018 Frequency: 5 times per week Estimated Hrs Per Day: .5 hour per day Rehab Potential: Fair Pt/Family Agrees to Plan: Yes Safety Risks/Education Teaching Recipient: Patient Teaching Methods: Discussion Response to Teaching: Verbalize Understanding Time Speech Therapy Time In: 09:30 Speech Therapy Time Out: 10:00 Total Billed Time: 30 Billed Treatment Time 1, MATEO Sweeney Mar 28, 2018 15:50
[2018-03-28 17:09] VITALS: BP 133/54
--- NOTE | 2018-03-28 18:11 | Consultation-Cardiology ---
HPI-Cardiology Cardiology Consultation Date of Consultation 03/28/18 Date of Admission Time Seen by Provider: 15:00 Indication: Bradycardia, hypertension HPI 77-year-old gentleman with history of coronary artery disease, hypertension, spinal stenosis. Admitted for generalized weakness, has history of lumbar spine cervical surgery, had confusion felt that it was secondary to pneumonia, patient was treated and then he was noted to have leukopenia. 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 He was started on steroid. Patient had right leg weakness felt that it was due to his spine surgery that was done in 2010. MRI was done which showed spinal stenosis, foraminal stenosis no metastatic disease or abscess. Patient was receiving physical therapy. He was noted to be bradycardic and hypotensive, he denied any chest pain, no shortness of breath. No palpitation. Home Medications & Allergies Allergies: Coded Allergies: No Known Drug Allergies (Unverified , 11/09/17) Home Medication List Reviewed: Yes GYP-Xvplcu-Tndrdy Hx Patient Social History Alcohol Use: Denies Use Recreational Drug Use: No Former smoker/When Quit: Oct 20, 1966 Type Used: Cigarettes Recent Foreign Travel: No Recent Infectious Disease Expo: No Recent Hopitalizations: Yes ([facility]) Physical Abuse Screen: No Sexual Abuse: No Immunizations Up To Date Tetanus Booster (TDap): Unknown Date of Pneumonia Vaccine: Apr 19, 2016 Date of Influenza Vaccine: Mar 24, 2018 Past Medical History Past medical history as described below Family Medical History Significant Family History: No Pertinent Family Hx Family Medical Hx Noncontributory to his current condition Review of Systems Constitutional: see HPI, malaise, weakness EENTM: see HPI, no symptoms reported Respiratory: see HPI; No cough, No dyspnea on exertion, No hemoptysis, No orthopnea, No phlegm, No short of breath, No stridor, No wheezing, No other Cardiovascular: see HPI; No chest pain, No edema, No Hx of Intervention, No palpitations, No syncope, No vascular heart diseas, No other Gastrointestinal: no symptoms reported, see HPI Genitourinary: no symptoms reported, see HPI Musculoskeletal: see HPI, joint pain, muscle pain, muscle weakness Skin: see HPI Psychiatric/Neurological: No Symptoms Reported, See HPI Reviewed Test Results Reviewed Test Results Lab No labs Physical Exam Vital Signs Vital Signs - First Documented 03/23/18 10:15 Temp 98.6 Pulse 65 Resp 18 B/P (MAP) 168/79 (108) Pulse Ox 97 O2 Delivery Room Air Capillary Refill : Height, Weight, BMI Height: 5'9.00" Weight: 179lbs. 1.6oz. 81.557117ue; 26.0 BMI Method:Stated General Appearance: No Apparent Distress, WD/WN Eyes: Bilateral Eye Normal Inspection, Bilateral Eye PERRL, Bilateral Eye EOMI HEENT: PERRL/EOMI, TMs Normal, Normal ENT Inspection, Pharynx Normal Neck: Full Range of Motion, Normal Inspection, Non Tender, Supple, Carotid Bruit Respiratory: Chest Non Tender, Lungs Clear, Normal Breath Sounds, No Accessory Muscle Use, No Respiratory Distress Cardiovascular: No Edema, No Gallop, No JVD, No Murmur, Normal Peripheral Pulses, Bradycardia Gastrointestinal: Normal Bowel Sounds, No Organomegaly, No Pulsatile Mass, Non Tender, Soft Back: Normal Inspection, No CVA Tenderness, No Vertebral Tenderness Extremity: Normal Capillary Refill, Normal Inspection, Normal Range of Motion, Non Tender, No Calf Tenderness, No Pedal Edema Neurologic/Psychiatric: Alert, Oriented x3, No Motor/Sensory Deficits, Normal Mood/Affect Skin: Normal Color, Warm/Dry Lymphatic: No Adenopathy A/P-Cardiology Admission Diagnosis Spinal stenosis Generalized weakness Labile hypertension Coronary artery disease Sinus node dysfunction Assessment/Plan Generalized weakness and loss of energy. Receiving physical therapy, managed by Dr. Quintero Bradycardia secondary to medication, has history of underlying sinus node dysfunction that was worsening with medication, his baseline heart rate is between 40 and 50. Patient has been asymptomatic with this heart rate as an outpatient. 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 Medical therapy was recommended. Continue to monitor Resistant hypertension, receiving multiple medication, blood pressure is better controlled at this time. Continue to monitor Renal ultrasound was done in November 2016 showing normal bilateral kidneys with no significance disease in the renal arteries, continue to monitor Peripheral edema, continue to monitor at this time Melanoma stage III D, status post excision from the left arm and left axillary dissection, receiving chemotherapy, no radiation, followed by Dr. King Lipid profile was done in November 2017 showing total cholesterol 177, HDL 48, LDL 115, triglyceride 80, continue to monitor. Osteoarthritis, maintained on Celebrex which could be affecting negatively the blood pressure Extensive surgical history, in November 2015 underwent repair of bowel due to complication of hernia surgery and removal of infected mesh surgery. History of laminectomy, neck surgery for spinal stenosis, radical prostatectomy , carpal tunnel surgery. Mild bilateral carotid stenosis, ultrasound was done in December 2016, carotid bruit is worse on the left side at this time, I will reevaluate carotid ultrasound Clinical Quality Measures DVT/VTE Risk/Contraindication: Risk Factor Score Per Nursin RFS Level Per Nursing on Admit: 3=High TIERRA AMRIN MD Mar 28, 2018 18:11
[2018-03-28] MEDS: lisINopril 20 MG (PRINIVIL) TABLET PO SCH (20:00)
[2018-03-28] MEDS: IBUPROFEN 600 MG (MOTRIN) TAB PO PRN (22:27)
[2018-03-29 05:39] VITALS: BP 171/76
[2018-03-29] MEDS: OMEGA 3 (FISH OIL) 1000 MG CAP PO SCH ×2 (06:06→16:58)
[2018-03-29] MEDS: predniSONE 10 MG TAB PO SCH (06:07)
--- NOTE | 2018-03-29 07:33 | PM & R (SOAP) Progress Note ---
Subjective This was a face to face visit with the patient. Date Seen by Provider: Mar 29, 2018 Time Seen by Provider: 07:15 Subjective/Events-last exam Patient was seen in his room this AM Patient Mod assist for TransfersPulse 61 and SBP elevated Hospitalist to review meds Review of Systems Neurological: Weakness Objective Physician Exam Last Set of Vital Signs Vital Signs Date Time Temp Pulse Resp B/P (MAP) Pulse Ox O2 Delivery O2 Flow Rate FiO2 03/29/18 05:39 98.6 61 18 171/76 (107) 97 Room Air Capillary Refill : I&O Intake and Output 03/29/18 00:00 Intake Total 900 ml Balance 900 ml Intake Oral 900 ml # Voids 5 General: Alert, Oriented X3, Cooperative, No Acute Distress HEENT: Atraumatic, PERRLA, EOMI, Mucous Memb Moist/[place] Neck: Supple, No JVD Lungs: Clear to Auscultation Heart: Regular Rate Abdomen: Normal Bowel Sounds, Soft, No Tenderness Extremities: Other (TRACE EDEMA) Neuro: Other (wEAKNESS bles rt^ LEFT) Results Lab Data Laboratory Tests 03/27/18 15:25: White Blood Count 6.8, Red Blood Count 3.46L, Hemoglobin 10.2L, Hematocrit 30L, Mean Corpuscular Volume 86, Mean Corpuscular Hemoglobin 30, Mean Corpuscular Hemoglobin Concent 34, Red Cell Distribution Width 14.2, Platelet Count 380, Mean Platelet Volume 9.6, Neutrophils (%) (Auto) 81H, Lymphocytes (%) (Auto) 14 , Monocytes (%) (Auto) 6, Eosinophils (%) (Auto) 0, Basophils (%) (Auto) 0, Neutrophils # (Auto) 5.5, Lymphocytes # (Auto) 0.9L, Monocytes # (Auto) 0.4, Eosinophils # (Auto) 0.0, Basophils # (Auto) 0.0 Assessment/Plan Assessment and Plan 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
--- NOTE | 2018-03-29 08:13 | Occupational Ther Daily Note ---
OT Current Status-Daily Note Subjective Pt alert, lying in bed. No c/o pain. Pt agrees to therapy. Mental Status/Objective Patient Orientation: Person, Confused, Place, Time, Situation Functional [place] Measure 0=Not Assessed/NA 4=Minimal Assistance 1=Total Assistance 5=Supervision or Setup 2=Maximal Assistance 6=Modified [place] 3=Moderate Assistance 7=Complete [place] Attachments: IV ADL-Treatment Functional [place] Measure 0=Not Assessed/NA 4=Minimal Assistance 1=Total Assistance 5=Supervision or Setup 2=Maximal Assistance 6=Modified [place] 3=Moderate Assistance 7=Complete IndependenceIRFPAI Quality Coding Scale 6 Independent with activity with or without an assistive device 5 Patient requires set up or clean up by helper. Patient completes activity by themselves 4 Supervision or touching assist (CGA). [place] provide cues , steadying assist 3 The helper provides less than half the effort to complete the activity 2 The helper provides more than half the effort to complete the activity 1 Dependent. The helper does all the effort to complete an activity 7 Patient refused to complete or attempt activity 9 The patient did not perform the activity before the current illness or injury 88 Not attempted due to Medical conditions or safety concerns Eating (FIM): 7 (Pt able to manipulate packaging and uses normal utensils. ) Eating (QC): 6 Grooming (FIM): 6 (Mod I, pt completes in sitting in front of sink. ) Bathing (FIM): 5 (SBA, pt compeltes using shower bench, hand held shower, and grabbars. ) Bathing Location: L Arm, R Arm, L Upper Leg, R Upper Leg, L Lower Leg ( including foot), R Lower Leg (including foot), Chest, Abdomen, Buttocks, Perineal Area Shower/Bathe Self (QC): 4 Upper Body (FIM): 5 (Set up, pt completes in sitting position. ) Upper Body Dressing (QC): 5 Lower Body Dressing (FIM): 5 (Set up, pt completes in sitting position using AE to reach LE. In standing to hike pants over hips, pt uses FWW for stability. Pt able to don/doff socks using AE. Pt dons shoes using AE. ) Lower Body Dressing (QC): 4 On/Off Footwear (QC): 5 Toileting (FIM): 5 (SBA, pt urinated in standing position using grabbars and FWW for stability.) Toileting Hygiene (QC): 4 Transfers (B, C, W/C) (FIM): 4 (CGA, HOB raised pt able to go from supine to EOB with minimal assistance. Pt needed increased encouragement to get legs to EOB. Pt uses FWW for stability in sit to stand. ) Shower Transfer(FIM): 5 (SBA, pt uses grabbars, shower bench and FWW for stability. ) Pt takes increased time to complete ADLs. Pt insisted on standing when using the restroom (urinating), ERNESTINE/s student suggested to sit, pt refused stating that "he didn't want to." Pt has difficulty with not missing the toilet and often urinates on the floor. After therapy, pt sitting in recliner eating breakfast. Call light/phone within reach. All needs met in room. OT Short Term Goals Short Term Goals Time Frame: Mar 30, 2018 Lower Body Dressing(FIM): 4 Toilet/Commode Transfer(FIM): 5 Shower Transfer(FIM): 5 Comprehension(FIM): 7 Expression(FIM): 7 Social Interaction(FIM): 5 Problem Solving(FIM): 5 Memory(FIM): 4 Additional Short Term Goals: 1-Demonstrate ADL Tasks, 2-Verbalize Understanding , 3-ImproveStrength/[place] 1=Demonstrate adherence to instructed precautions during ADL tasks. 2=Patient will verbalize/demonstrate understanding of assistive devices/ modifications for ADL. 3=Patient will improve strength/tolerance for activity to enable patient to perform ADL's. OT Longterm Goals Longterm Goals Time Frame: Apr 14, 2018 Eating (FIM): 7 Eating (QC): 6 Groomin Oral Hygiene (QC): 6 Bathing(FIM): 6 Shower/Bathe Self (QC): 6 Upper Body Dressing(FIM): 6 Upper Body Dressing (QC): 6 Lower Body Dressing(FIM): 6 Lower Body Dressing (QC): 6 On/Off Footwear (QC): 6 Toileting(FIM): 6 Toileting Hygiene (QC): 6 Toilet/Commode Transfer(FIM): 6 Toilet/Commode Transfer (QC): 6 Shower Transfer(FIM): 6 Comprehension(FIM): 7 Expression (FIM): 7 Social Interaction(FIM): 7 Problem Solving(FIM): 5 Memory(FIM): 5 Additional Goals: 1-Demonstrate ADL Tasks, 2-Verbalize Understanding, 3- ImproveStrength/Abdulkadir 1=Demonstrate adherence to instructed precautions during ADL tasks. 2=Patient will verbalize/demonstrate understanding of assistive devices/ modifications for ADL. 3=Patient will improve strength/tolerance for activity to enable patient to perform ADL's. OT Education/Plan Problem List/Assessment Pt would benefit from skilled OT to increase his independence in basic self care to allow him to safely return home Discharge Recommendations Plan/Recommendations: Continue POC Treatment Plan/Plan of Care Patient would benefit from OT for education, treatment and training to promote independence in ADL's, mobility, safety and/or upper extremity function for ADL' s. Plan of Care: ADL Retraining, Functional Mobility, Group Exercise/Act as Ind ( education, exercise, memory, activity tolerance, functional activities, socialization) Treatment Duration: Apr 14, 2018 Frequency: At least 5 of 7 days/Wk (IRF) Estimated Hrs Per Day: 1.5 hours per day Agreement: Yes Rehab Potential: Fair Time/GCodes Start Time: 07:00 Stop Time: 08:15 Total Time Billed (hr/min): 75 Billed Treatment Time 1 visit- ADL 5 (75 min) KRUPA WEI Mar 29, 2018 08:13
[2018-03-29 08:20] VITALS: BP 107/66
[2018-03-29] MEDS: ASPIRIN E.C. 81 MG (ECOTRIN) TAB PO SCH (08:25)
[2018-03-29] MEDS: CELECOXIB 100 MG (CeleBREX) CAP PO SCH (08:25)
[2018-03-29] MEDS: LORATADINE (CLARITIN) 10 MG TAB PO SCH (08:25)
[2018-03-29] MEDS: amLODIPine 10 MG (NORVASC) TAB PO SCH (08:25)
[2018-03-29] MEDS: NEBIVOLOL 5 MG TAB (BYSTOLIC) PO SCH (08:26)
[2018-03-29] MEDS: FAMOTIDINE 20 MG (PEPCID) TABLET PO SCH ×2 (08:26→20:12)
[2018-03-29] MEDS: POLYETHYLENE GLYCOL 17 GM (MIRALAX) PACK PO SCH ×2 (08:27→20:13)
--- NOTE | 2018-03-29 09:24 | Cardiology Progress Note ---
Subjective Date Seen by Provider: Mar 29, 2018 Time Seen by Provider: 09:19 Subjective/Events-last exam Patient is sitting in a chair, comfortably, still having generalized weakness. No chest pain. No shortness of breath. Review of Systems General: No Chills, No Night Sweats; Fatigue, Malaise; No Appetite, No Other HEENT: No Head Aches, No Visual Changes, No Eye Pain, No Ear Pain, No Dysphasia , No Sinus Congestion, No Post Nasal Drip, No Sore Throat, No Other Pulmonary: Dyspnea; No Cough, No Pleuritic Chest Pain, No Other Cardiovascular: No: Palpitations, Orthopnea, Paroxysmal Noc. Dyspnea, Edema, Lt Headedness, Other Objective-Cardiology Exam Last Set of Vital Signs Vital Signs 03/29/18 03/29/18 05:39 09:00 Temp 98.6 Pulse 61 Resp 18 B/P (MAP) 171/76 (107) Pulse Ox 97 O2 Delivery Room Air Capillary Refill : I&O Intake and Output 03/29/18 00:00 Intake Total 900 ml Balance 900 ml Intake Oral 900 ml # Voids 5 General: Alert, Oriented X3, Cooperative, No Acute Distress HEENT: Atraumatic, PERRLA, EOMI, Mucous Memb Moist/[place] Neck: Supple, No JVD Lungs: Clear to Auscultation Heart: Normal S1, Normal S2, Other (Bradycardia) Abdomen: Normal Bowel Sounds, Soft, No Tenderness Extremities: No Clubbing, No Cyanosis, Other (TRACE EDEMA) Skin: No Rashes Neuro: Normal Speech, Other (wEAKNESS bles rt^ LEFT) Psych/Mental Status: Mental Status NL A/P-Cardiology Admission Diagnosis Spinal stenosis Generalized weakness Labile hypertension Coronary artery disease Sinus node dysfunction Assessment/Plan Generalized weakness and loss of energy. Receiving physical therapy, managed by Dr. 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 Followed by Dr. Lion Cruz, received antibiotic, management by primary care physician Bradycardia secondary to medication, has history of underlying sinus node dysfunction that was worsening with medication, his baseline heart rate is between 40 and 50. Patient has been asymptomatic with this heart rate as an outpatient. Continue to monitor at this time. 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 Medical therapy was recommended. Continue to monitor Resistant hypertension, receiving multiple medication, labile blood pressure, more difficult to control at this time secondary to steroids, still receiving prednisone at 25 mg daily at a tapering dose for his vasculitis. Continue on current medication monitor blood pressure Renal ultrasound was done in November 2016 showing normal bilateral kidneys with no significance disease in the renal arteries, continue to monitor Peripheral edema, continue to monitor at this time Melanoma stage III D, status post excision from the left arm and left axillary dissection, received immunotherapy, no radiation, followed by Dr. King Lipid profile was done in November 2017 showing total cholesterol 177, HDL 48, LDL 115, triglyceride 80, continue to monitor. Osteoarthritis, maintained on Celebrex which could be affecting negatively the blood pressure Extensive surgical history, in November 2015 underwent repair of bowel due to complication of hernia surgery and removal of infected mesh surgery. History of laminectomy, neck surgery for spinal stenosis, radical prostatectomy , carpal tunnel surgery. Mild bilateral carotid stenosis, ultrasound was done in December 2016, carotid bruit is worse on the left side at this time, I will reevaluate carotid ultrasound Clinical Quality Measures DVT/VTE Risk/Contraindication: Risk Factor Score Per Nursin RFS Level Per Nursing on Admit: 3=High TIERRA MARIN MD Mar 29, 2018 09:24
--- NOTE | 2018-03-29 11:00 | Physical Therapy Daily Note ---
PT Daily Note-Current Subjective pt in recliner pre tx, agrees to PT, no pain to report Appearance pt in recliner post tx w/ phone, call light, tray, all needs met Mental Status Patient Orientation: Person, Place, Situation Transfers Functional [place] Measure 0=Not Assessed/NA 4=Minimal Assistance 1=Total Assistance 5=Supervision or Setup 2=Maximal Assistance 6=Modified [place] 3=Moderate Assistance 7=Complete IndependenceIRFPAI Quality Coding Scale 6 Independent with activity with or without an assistive device 5 Patient requires set up or clean up by helper. Patient completes activity by themselves 4 Supervision or touching assist (CGA). [place] provide cues , steadying assist 3 The helper provides less than half the effort to complete the activity 2 The helper provides more than half the effort to complete the activity 1 Dependent. The helper does all the effort to complete an activity 7 Patient refused to complete or attempt activity 9 The patient did not perform the activity before the current illness or injury 88 Not attempted due to Medical conditions or safety concerns Transfers (B, C, W/C) (FIM): 3 Supine to/from Sit: 3 Sit to/from Stand: 5 sit<->stand SBA, supine<->sit mod A getting both legs into/out of bed and sitting up Weight Bearing Right Lower Extremity: Right Full Weight Bearing Left Lower Extremity: Left Full Weight Bearing Gait Training Does the Patient Walk?: Yes Gait (FIM): 5 Distance: 400', 80' Gait Level of Assist: 5 Gait Persons Needed: 1 Gait Assistive Device: FWW pt ambulates around rehab unit and to/from gym suing FWW w/ SBA, gait is slow w / shuffled steps but gradually increases in speed and stride length, no LOB Exercises Supine Ex: Bridging (20), Knee to chest (w/ tunisian ball x40) Standing: Mini squats (airex pad in chair x5), Step-ups (airex pad x20) // bar lunges x10 Treatments functional strengthening, gait training Assessment Current Status: Fair Progress improved gait distance and increased hip flexion strength to step up onto airex pad, pt demonstrates knee hyperextension on contralateral LE during step ups due to quad weakness PT Short Term Goals Short Term Goals Time Frame: Mar 30, 2018 Gait (FIM): 3 Distance (FIM): 3=150 ft Gait Distance Comment: 150' Gait Level of Assist: 4 Gait Assistive Device: FWW PT Opinion Polls Survey Worker Goals Opinion Polls Survey Worker Goals PT Opinion Polls Survey Worker Goals Time Frame: Apr 06, 2018 Transfers (B,C,W/C) (FIM): 5 Sit to Lying (QC): 6 Lying-Sitting on Side/Bed(QC): 6 Sit to Stand (QC): 4 Rollin Roll Left to Right (QC): 6 Chair/Fyo-lt-Qlhvs Xfer(QC): 4 Car Transfer (QC): 4 Does the Patient Walk: Yes Gait (FIM): 5 Distance: 250' Walk 10 feet (QC): 4 Walk 10ft-Uneven Surface(QC): 4 Walk 50ft with 2 Turns (QC): 4 Walk 150 ft (QC): 4 Gait Level of Assist: 5 Gait Assistive Device: FWW Stairs (FIM): 2 # of Steps: 4 1 Step (curb) (QC): 4 4 Steps (QC): 4 Stairs Level Of Assist: 4 PT Plan Problem List Problem List: Activity Tolerance, Functional Strength, Safety, Balance, Gait, Transfer, Bed Mobility, ROM Treatment/Plan Treatment Plan: Continue Plan of Care Treatment Plan: Bed Mobility, Concurrent Therapy, Education, Functional Activity Abdulkadir, Functional Strength, Group Therapy, Gait, Safety, Therapeutic Exercise, Transfers Treatment Duration: Apr 13, 2018 Frequency: At least 5 of 7 days/Wk (IRF) Estimated Hrs Per Day: 1.5 hours per day Patient and/or Family Agrees t: Yes Safety Risks/Education Patient Education: Gait Training, Transfer Techniques, Correct Positioning, Safety Issues Teaching Recipient: Patient Teaching Methods: Demonstration, Discussion Response to Teaching: Reinforcement Needed Time/GCodes Time In: 1000 Time Out: 1100 Total Billed Treatment Time: 60 Total Billed Treatment 1 visit GT 15' FA 15' EX 30' GREGORIA TREVIÑO PT Mar 29, 2018 11:00
--- NOTE | 2018-03-29 12:17 | Physical Therapy Daily Note ---
PT Daily Note-Current Subjective Pt. agrees to Rx, states he is still puzzled as to why this all happened. " Why was I out for 45 mins to and hour"? Pain Numeric Pain Scale: 0-No Pain Mental Status Patient Orientation: Normal For Age Transfers Functional [place] Measure 0=Not Assessed/NA 4=Minimal Assistance 1=Total Assistance 5=Supervision or Setup 2=Maximal Assistance 6=Modified [place] 3=Moderate Assistance 7=Complete IndependenceIRFPAI Quality Coding Scale 6 Independent with activity with or without an assistive device 5 Patient requires set up or clean up by helper. Patient completes activity by themselves 4 Supervision or touching assist (CGA). [place] provide cues , steadying assist 3 The helper provides less than half the effort to complete the activity 2 The helper provides more than half the effort to complete the activity 1 Dependent. The helper does all the effort to complete an activity 7 Patient refused to complete or attempt activity 9 The patient did not perform the activity before the current illness or injury 88 Not attempted due to Medical conditions or safety concerns sit to stand required much effort of pt without elevating lift recline chair, Weight Bearing Right Lower Extremity: Right Full Weight Bearing Left Lower Extremity: Left Full Weight Bearing Gait Training Gait Assistive Device: FWW 250x2 SBA, gait more stable than last observed by this [facility]ESS ASS[facility] Exercises Seated Therapy Exercises: Ankle pumps, Sit to stand, Long arc quads, Hip flexion Seated Reps: 12 NuStep Minutes: 15 NuStep Workload: 4 Treatments up in chair after Rx with chiang at hand, needs met Assessment Current Status: Good Progress PT Short Term Goals Short Term Goals Time Frame: Mar 30, 2018 Gait (FIM): 3 Distance (FIM): 3=150 ft Gait Distance Comment: 150' Gait Level of Assist: 4 Gait Assistive Device: FWW PT Alf Goals Alf Goals PT Language Pathologist Goals Time Frame: Apr 06, 2018 Transfers (B,C,W/C) (FIM): 5 Sit to Lying (QC): 6 Lying-Sitting on Side/Bed(QC): 6 Sit to Stand (QC): 4 Rollin Roll Left to Right (QC): 6 Chair/Vhf-ds-Ljeel Xfer(QC): 4 Car Transfer (QC): 4 Does the Patient Walk: Yes Gait (FIM): 5 Distance: 250' Walk 10 feet (QC): 4 Walk 10ft-Uneven Surface(QC): 4 Walk 50ft with 2 Turns (QC): 4 Walk 150 ft (QC): 4 Gait Level of Assist: 5 Gait Assistive Device: FWW Stairs (FIM): 2 # of Steps: 4 1 Step (curb) (QC): 4 4 Steps (QC): 4 Stairs Level Of Assist: 4 PT Plan Treatment/Plan Treatment Plan: Continue Plan of Care Treatment Plan: Bed Mobility, Concurrent Therapy, Education, Functional Activity Abdulkadir, Functional Strength, Group Therapy, Gait, Safety, Therapeutic Exercise, Transfers Treatment Duration: Apr 13, 2018 Frequency: At least 5 of 7 days/Wk (IRF) Estimated Hrs Per Day: 1.5 hours per day Patient and/or Family Agrees t: Yes Safety Risks/Education Patient Education: Gait Training, Transfer Techniques, Correct Positioning, Safety Issues Teaching Recipient: Patient Teaching Methods: Demonstration, Discussion Response to Teaching: Verbalize Understanding, Return Demonstration, Reinforcement Needed Time/GCodes Time In: 1135 Time Out: 1205 Total Billed Treatment Time: 30 Total Billed Treatment 1,GT15m,EX15m G Codes Necessary: NEIL Do ACCESS ASSOC Mar 29, 2018 12:17
--- NOTE | 2018-03-29 15:03 | Speech Therapy Daily Note ---
Speech Daily Progress Note Subjective Date Seen by Provider: Mar 29, 2018 Time Seen by Provider: 09:30 Pt up in chair. Pain Numeric Pain Scale: 0-No Pain Objective Memory - Picture recall after 20 minutes, using the strategy of verbalizing out loud what is in the picture. Pt was 100% accurate. Matching card game, pt did not keep selecting the same cards over and over. He was able to match 6 cards out of 16. Assessment Assessment Current Status: Fair Progress Treatment Plan Continue Plan of Care Communication Comprehension: 7 Expression: 7 Social Cognition Social Interaction: 7 Problem Solvin Memory: 3 Speech Short Term Goals Short Term Goals Short Term Goals Pt will complete various verbal/auditory memory activities with at least 75% and min assist. Time Frame-ST week Comprehension: 7 Expression: 7 Social Interaction: 5 Problem Solvin Memory: 4 Speech Product Support Specialist Goals Product Support Specialist Goals Pt will demonstrate functional memory skills for maximum independence in the home setting. Time Frame: 2 weeks Comprehension: 7 Expression: 7 Social Interaction: 7 Problem Solvin Memory: 5 Speech-Plan Patient/Family Goals Patient/Family Goals: to return home Treatment Plan Speech Therapy Treatment Plan: Continue Plan of Care pt cooperative but still doesn't put in much effort. Treatment Duration: Mar 31, 2018 Frequency: 5 times per week Estimated Hrs Per Day: .5 hour per day Rehab Potential: Fair Pt/Family Agrees to Plan: Yes Safety Risks/Education Teaching Recipient: Patient Teaching Methods: Discussion Response to Teaching: Verbalize Understanding Time Speech Therapy Time In: 09:30 Speech Therapy Time Out: 10:00 Total Billed Time: 30 Billed Treatment Time 1, MATEO BATISTA Mar 29, 2018 15:03
[2018-03-29 18:00] VITALS: BP 152/82
[2018-03-29] MEDS: lisINopril 20 MG (PRINIVIL) TABLET PO SCH (20:12)
[2018-03-29] MEDS: IBUPROFEN 600 MG (MOTRIN) TAB PO PRN (22:02)
[2018-03-30 05:05] VITALS: BP 177/80
[2018-03-30] MEDS: predniSONE 10 MG TAB PO SCH (06:09)
[2018-03-30] MEDS: OMEGA 3 (FISH OIL) 1000 MG CAP PO SCH ×2 (06:09→16:20)
[2018-03-30 08:00] VITALS: BP 161/74
[2018-03-30] MEDS: LORATADINE (CLARITIN) 10 MG TAB PO SCH (08:01)
[2018-03-30] MEDS: NEBIVOLOL 5 MG TAB (BYSTOLIC) PO SCH (08:01)
[2018-03-30] MEDS: CELECOXIB 100 MG (CeleBREX) CAP PO SCH (08:01)
[2018-03-30] MEDS: FAMOTIDINE 20 MG (PEPCID) TABLET PO SCH ×2 (08:02→21:09)
[2018-03-30] MEDS: amLODIPine 10 MG (NORVASC) TAB PO SCH (08:02)
[2018-03-30] MEDS: ASPIRIN E.C. 81 MG (ECOTRIN) TAB PO SCH (08:02)
[2018-03-30] MEDS: POLYETHYLENE GLYCOL 17 GM (MIRALAX) PACK PO SCH ×2 (08:02→21:10)
--- NOTE | 2018-03-30 08:15 | Oncology Progress Note ---
Subjective Date Seen by a Provider: Mar 30, 2018 Time Seen by a Provider: 08:30 Subjective/Events-last exam Doing well. Plan to discharge home next Tue. Prednisone at 25mg daily and will be tapered down further more. Data Review Labs Laboratory Tests 03/27/18 15:25: Red Blood Count 3.46L, Hemoglobin 10.2L, Hematocrit 30L, Neutrophils (%) (Auto) 81H, Lymphocytes # (Auto) 0.9L Physical Exam Vital Signs Vital Signs - First Documented 03/24/18 06:40 Temp 99.0 Pulse 63 Resp 18 B/P (MAP) 167/80 (109) Pulse Ox 97 O2 Delivery Room Air Capillary Refill : Height, Weight, BMI Height: 5'9.00" Weight: 179lbs. 1.6oz. 81.685167cp; 26.0 BMI Method:Stated General Appearance: No Apparent Distress Impression & Plan Impression & Plan IMP: 1. Pneumonia, recovering. 2. Mental status change, ? 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 Significantly improved since the Prednisone 50mg daily now on taper at 25mg daily. 3. Leukopenia and anemia. Will check CBC again next Tuesday. 4. Fever, ?related to vasculitis in addition to pneumonia. Resolved. 5. h/o Invasive melanoma left forearm, [id number], stage IIID, BRAF negative. MRI brain was Negative for metastatic disease. Completion axillary dissection was positive for 7/12 lymph nodes. Started adjuvant immunotherapy with nivolumab on 11/23/17. Completed 8 cycles as of 02/16/18. Last dose 03/16/18 was hold off due to poor performance and lethargy. 6. h/o MGUS. SPEP on 10/19/17 shows decreased paraproteins, and free light chains continue to be negative. Rec: 1. Reduce Prednisone 25mg daily to 10mg daily for 3 days, then off. 2. Repeat CBC next Tuesday. 3. Hold off Opdivo treatment. 4. Agree to discharge home next week. 5. See Dr Seymour next at cancer center at 10:15, Apr 03, 2018 to see if he is ready to go back on his treatment. Clinical Quality Measures DVT/VTE Risk/Contraindication: Risk Factor Score Per Nursin RFS Level Per Nursing on Admit: 3=High BEREKET,CAMERON-MOHINI MD Mar 30, 2018 08:15
--- NOTE | 2018-03-30 08:18 | Cardiology Progress Note ---
Subjective Date Seen by Provider: Mar 30, 2018 Time Seen by Provider: 08:10 Subjective/Events-last exam Patient is sitting up in chair, no new complaints. Denies any dizziness or lightheadedness. Objective-Cardiology Exam Last Set of Vital Signs Vital Signs 03/30/18 03/30/18 03/30/18 05:05 08:00 09:00 Temp 97.8 Pulse 53 Resp 18 B/P (MAP) 161/74 (103) Pulse Ox 96 O2 Delivery Room Air Capillary Refill : I&O Intake and Output 03/30/18 00:00 Intake Total 1100 ml Output Total 350 ml Balance 750 ml Intake Oral 1100 ml Output Urine Total 350 ml # Voids 3 # Bowel Movements 1 General: Alert, Oriented X3, Cooperative, No Acute Distress HEENT: Atraumatic, PERRLA, EOMI, Mucous Memb Moist/[place] Neck: Supple, No JVD Lungs: Clear to Auscultation Heart: Normal S1, Normal S2, Other (Bradycardia) Abdomen: Normal Bowel Sounds, Soft, No Tenderness Extremities: No Clubbing, No Cyanosis, Other (TRACE EDEMA) Skin: No Rashes Neuro: Normal Speech, Other (wEAKNESS bles rt^ LEFT) Psych/Mental Status: Mental Status NL A/P-Cardiology Admission Diagnosis Spinal stenosis Generalized weakness Labile hypertension Coronary artery disease Sinus node dysfunction Assessment/Plan Generalized weakness and loss of energy. Receiving physical therapy, managed by Dr. 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 Improving. Followed by Dr. Seymour Pneumonia, received antibiotic, management by primary care physician Bradycardia secondary to medication, has history of underlying sinus node dysfunction that was worsening with medication, his baseline heart rate is between 40 and 50. Patient has been asymptomatic with this heart rate as an outpatient. Continue to monitor at this time. 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 Medical therapy was recommended. Continue to monitor Resistant hypertension, receiving multiple medication, labile blood pressure, more difficult to control at this time secondary to steroids, still receiving prednisone at 25 mg daily at a tapering dose for his vasculitis. No changes to blood pressure medications recommended at this time, continue to monitor. Renal ultrasound was done in November 2016 showing normal bilateral kidneys with no significance disease in the renal arteries, continue to monitor Peripheral edema, continue to monitor at this time Melanoma stage III D, status post excision from the left arm and left axillary dissection, received immunotherapy, no radiation, followed by Dr. King Lipid profile was done in November 2017 showing total cholesterol 177, HDL 48, LDL 115, triglyceride 80, continue to monitor. Osteoarthritis, maintained on Celebrex which could be affecting negatively the blood pressure Extensive surgical history, in November 2015 underwent repair of bowel due to complication of hernia surgery and removal of infected mesh surgery. History of laminectomy, neck surgery for spinal stenosis, radical prostatectomy , carpal tunnel surgery. Mild bilateral carotid stenosis, ultrasound was done in December 2017, continue to monitor. Clinical Quality Measures DVT/VTE Risk/Contraindication: Risk Factor Score Per Nursin RFS Level Per Nursing on Admit: 3=High Supervisory-Addendum Brief Supervisory Addendum Participated in pt care: history, MDM, physical Personally performed: exam, history, MDM Care discussed with: NEETU Results interpretation: agree with documentation Notes: Patient was seen and evaluated with Skyla, reevaluated this evening. Feeling better, still having pedal edema. Blood pressure is better controlled. I will continue current medication and continue to monitor, monitor blood pressure and lipids SKYLA HOLLIS Mar 30, 2018 8:18 am TIERRA MARIN MD Mar 30, 2018 3:50 pm
--- NOTE | 2018-03-30 09:31 | Occupational Ther Daily Note ---
OT Current Status-Daily Note Subjective Pt alert, sitting in recliner. No c/o pain. Pt agrees to therapy. Mental Status/Objective Patient Orientation: Person, Confused, Place, Time, Situation Functional [place] Measure 0=Not Assessed/NA 4=Minimal Assistance 1=Total Assistance 5=Supervision or Setup 2=Maximal Assistance 6=Modified [place] 3=Moderate Assistance 7=Complete [place] Attachments: IV ADL-Treatment Functional [place] Measure 0=Not Assessed/NA 4=Minimal Assistance 1=Total Assistance 5=Supervision or Setup 2=Maximal Assistance 6=Modified [place] 3=Moderate Assistance 7=Complete IndependenceIRFPAI Quality Coding Scale 6 Independent with activity with or without an assistive device 5 Patient requires set up or clean up by helper. Patient completes activity by themselves 4 Supervision or touching assist (CGA). [place] provide cues , steadying assist 3 The helper provides less than half the effort to complete the activity 2 The helper provides more than half the effort to complete the activity 1 Dependent. The helper does all the effort to complete an activity 7 Patient refused to complete or attempt activity 9 The patient did not perform the activity before the current illness or injury 88 Not attempted due to Medical conditions or safety concerns Grooming (FIM): 6 (Mod I, pt completes in sitting position in front of sink. ) Oral Hygiene (QC): 6 Bathing (FIM): 6 (Mod I, pt completes using hand held shower, tub bench, and grabbars for stability.) Bathing Location: L Arm, R Arm, L Upper Leg, R Upper Leg, L Lower Leg ( including foot), R Lower Leg (including foot), Chest, Abdomen, Buttocks, Perineal Area Shower/Bathe Self (QC): 6 Upper Body (FIM): 5 (Set up. Pt completes in sitting position. ) Upper Body Dressing (QC): 5 Lower Body Dressing (FIM): 5 (Set up, pt completes insitting position using AE to reach LE. Pt uses FWW while standing to hike pants over hips. Pt able to don/ doff socks and shoes using AE. ) Lower Body Dressing (QC): 4 On/Off Footwear (QC): 5 Toileting (FIM): 5 (Supervision, pt completes cleansing in sitting using grabbars and FWW for stability. Pt uses FWW for stability while standing to hike pants over hips. ) Toileting Hygiene (QC): 4 Transfers (B, C, W/C) (FIM): 5 (Supervision, pt uses FWW for stability.) Toilet/Commode Transfer (FIM): 5 (Supervision, pt completes using grabbars and FWW for stability. ) Toilet Transfer (QC): 4 Tub Transfer(FIM): 5 (Supervision. Pt completes using tub bench, FWW and grabbars for stability. Pt used gait belt to wrap around leg to lift leg over the side of tub. ) Pt takes increased amount of time to complete ADLs. Pt has his own routine and does not like to change it. After therapy, pt sitting in recliner with call light/phone within reach. All needs met in room. OT Short Term Goals Short Term Goals Time Frame: Mar 30, 2018 Lower Body Dressing(FIM): 4 Toilet/Commode Transfer(FIM): 5 Shower Transfer(FIM): 5 Comprehension(FIM): 7 Expression(FIM): 7 Social Interaction(FIM): 5 Problem Solving(FIM): 5 Memory(FIM): 4 Additional Short Term Goals: 1-Demonstrate ADL Tasks, 2-Verbalize Understanding , 3-ImproveStrength/Abdulkadir 1=Demonstrate adherence to instructed precautions during ADL tasks. 2=Patient will verbalize/demonstrate understanding of assistive devices/ modifications for ADL. 3=Patient will improve strength/tolerance for activity to enable patient to perform ADL's. OT Refractory Repairer Goals Longterm Goals Time Frame: Apr 14, 2018 Eating (FIM): 7 Eating (QC): 6 Groomin Oral Hygiene (QC): 6 Bathing(FIM): 6 Shower/Bathe Self (QC): 6 Upper Body Dressing(FIM): 6 Upper Body Dressing (QC): 6 Lower Body Dressing(FIM): 6 Lower Body Dressing (QC): 6 On/Off Footwear (QC): 6 Toileting(FIM): 6 Toileting Hygiene (QC): 6 Toilet/Commode Transfer(FIM): 6 Toilet/Commode Transfer (QC): 6 Shower Transfer(FIM): 6 Comprehension(FIM): 7 Expression (FIM): 7 Social Interaction(FIM): 7 Problem Solving(FIM): 5 Memory(FIM): 5 Additional Goals: 1-Demonstrate ADL Tasks, 2-Verbalize Understanding, 3- ImproveStrength/Abdulkadir 1=Demonstrate adherence to instructed precautions during ADL tasks. 2=Patient will verbalize/demonstrate understanding of assistive devices/ modifications for ADL. 3=Patient will improve strength/tolerance for activity to enable patient to perform ADL's. OT Education/Plan Problem List/Assessment Pt would benefit from skilled OT to increase his independence in basic self care to allow him to safely return home Discharge Recommendations Plan/Recommendations: Continue POC Treatment Plan/Plan of Care Patient would benefit from OT for education, treatment and training to promote independence in ADL's, mobility, safety and/or upper extremity function for ADL' s. Plan of Care: ADL Retraining, Functional Mobility, Group Exercise/Act as Ind ( education, exercise, memory, activity tolerance, functional activities, socialization) Treatment Duration: Apr 14, 2018 Frequency: At least 5 of 7 days/Wk (IRF) Estimated Hrs Per Day: 1.5 hours per day Agreement: Yes Rehab Potential: Fair Time/GCodes Start Time: 08:00 Stop Time: 09:30 Total Time Billed (hr/min): 90 Billed Treatment Time 1 visit- ADL 6 (90 min) KRUPA WEI Mar 30, 2018 09:31
--- NOTE | 2018-03-30 10:54 | Physical Therapy Daily Note ---
PT Daily Note-Current Subjective Patient in recliner pre tx, agrees to PT, no complaints of pain at rest. Appearance Patient in recliner post tx with nurse call, phone, tray, all needs met. Mental Status Patient Orientation: Person, Place, Situation Transfers Functional [place] Measure 0=Not Assessed/NA 4=Minimal Assistance 1=Total Assistance 5=Supervision or Setup 2=Maximal Assistance 6=Modified [place] 3=Moderate Assistance 7=Complete IndependenceIRFPAI Quality Coding Scale 6 Independent with activity with or without an assistive device 5 Patient requires set up or clean up by helper. Patient completes activity by themselves 4 Supervision or touching assist (CGA). [place] provide cues , steadying assist 3 The helper provides less than half the effort to complete the activity 2 The helper provides more than half the effort to complete the activity 1 Dependent. The helper does all the effort to complete an activity 7 Patient refused to complete or attempt activity 9 The patient did not perform the activity before the current illness or injury 88 Not attempted due to Medical conditions or safety concerns Transfers (B, C, W/C) (FIM): 5 Sit to/from Stand: 5 Bed to/from Chair: 5 Appropriate use of hands and safety. Weight Bearing Right Lower Extremity: Right Full Weight Bearing Left Lower Extremity: Left Full Weight Bearing Gait Training Gait (FIM): 5 Distance: 250'x2 Gait Level of Assist: 5 Gait Persons Needed: 1 Gait Assistive Device: FWW Patient ambulates slowly but steady. Exercises Standing: Hamstring curls, Heel/toe raises, 3 way Ex=Flex, Abd, Ext, Marching, Mini squats Standing Reps: 15 LAQ alternating for 5 min, patient is not able to fully extend his knees especially on the right side. Treatments transfers, ambulation, functional strengthening Assessment Current Status: Fair Progress Patient fatigues quickly, needs frequent rest breaks, very weak quads PT Short Term Goals Short Term Goals Time Frame: Mar 30, 2018 Gait (FIM): 3 Distance (FIM): 3=150 ft Gait Distance Comment: 150' Gait Level of Assist: 4 Gait Assistive Device: FWW PT Shelter Goals Travel Rn Goals PT Shelter Goals Time Frame: Apr 06, 2018 Transfers (B,C,W/C) (FIM): 5 Sit to Lying (QC): 6 Lying-Sitting on Side/Bed(QC): 6 Sit to Stand (QC): 4 Rollin Roll Left to Right (QC): 6 Chair/Mpd-dm-Qzbno Xfer(QC): 4 Car Transfer (QC): 4 Does the Patient Walk: Yes Gait (FIM): 5 Distance: 250' Walk 10 feet (QC): 4 Walk 10ft-Uneven Surface(QC): 4 Walk 50ft with 2 Turns (QC): 4 Walk 150 ft (QC): 4 Gait Level of Assist: 5 Gait Assistive Device: FWW Stairs (FIM): 2 # of Steps: 4 1 Step (curb) (QC): 4 4 Steps (QC): 4 Stairs Level Of Assist: 4 PT Plan Problem List Problem List: Activity Tolerance, Functional Strength, Safety, Balance, Gait, Transfer, Bed Mobility Treatment/Plan Treatment Plan: Continue Plan of Care Treatment Plan: Bed Mobility, Concurrent Therapy, Education, Functional Activity Abdulkadir, Functional Strength, Group Therapy, Gait, Safety, Therapeutic Exercise, Transfers Treatment Duration: Apr 13, 2018 Frequency: At least 5 of 7 days/Wk (IRF) Estimated Hrs Per Day: 1.5 hours per day Patient and/or Family Agrees t: Yes Safety Risks/Education Patient Education: Gait Training, Transfer Techniques, Correct Positioning, Safety Issues Teaching Recipient: Patient Teaching Methods: Demonstration, Discussion Response to Teaching: Reinforcement Needed Time/GCodes Time In: 0900 Time Out: 1000 Total Billed Treatment Time: 60 Total Billed Treatment 1 visit GT 20' EX 40' GREGORIA TREVIÑO PT Mar 30, 2018 10:54
--- NOTE | 2018-03-30 13:28 | Physical Therapy Daily Note ---
PT Daily Note-Current Subjective pt in recliner pre tx, agrees to PT, no pain to report, Appearance pt in recliner post tx, w/ phone, call light, tray, all needs met Mental Status Patient Orientation: Person, Place, Situation Transfers Functional [place] Measure 0=Not Assessed/NA 4=Minimal Assistance 1=Total Assistance 5=Supervision or Setup 2=Maximal Assistance 6=Modified [place] 3=Moderate Assistance 7=Complete IndependenceIRFPAI Quality Coding Scale 6 Independent with activity with or without an assistive device 5 Patient requires set up or clean up by helper. Patient completes activity by themselves 4 Supervision or touching assist (CGA). [place] provide cues , steadying assist 3 The helper provides less than half the effort to complete the activity 2 The helper provides more than half the effort to complete the activity 1 Dependent. The helper does all the effort to complete an activity 7 Patient refused to complete or attempt activity 9 The patient did not perform the activity before the current illness or injury 88 Not attempted due to Medical conditions or safety concerns Transfers (B, C, W/C) (FIM): 5 Sit to/from Stand: 5 sit<->stand SBA Weight Bearing Right Lower Extremity: Right Full Weight Bearing Left Lower Extremity: Left Full Weight Bearing Gait Training Does the Patient Walk?: Yes Gait (FIM): 5 Distance: 450' Gait Level of Assist: 5 Gait Persons Needed: 1 Gait Assistive Device: FWW pt ambulates 450' around rehab unit and through obstacles including 10' over uneven surface, 1 step x2, and around cones on the floor Treatments gait training Assessment Current Status: Fair Progress improved gait distance and ability to climb steps PT Short Term Goals Short Term Goals Time Frame: Mar 30, 2018 Gait (FIM): 3 Distance (FIM): 3=150 ft Gait Distance Comment: 150' Gait Level of Assist: 4 Gait Assistive Device: FWW PT Chcf Goals Chcf Goals PT Chcf Goals Time Frame: Apr 06, 2018 Transfers (B,C,W/C) (FIM): 5 Sit to Lying (QC): 6 Lying-Sitting on Side/Bed(QC): 6 Sit to Stand (QC): 4 Rollin Roll Left to Right (QC): 6 Chair/Vxs-zx-Plvzd Xfer(QC): 4 Car Transfer (QC): 4 Does the Patient Walk: Yes Gait (FIM): 5 Distance: 250' Walk 10 feet (QC): 4 Walk 10ft-Uneven Surface(QC): 4 Walk 50ft with 2 Turns (QC): 4 Walk 150 ft (QC): 4 Gait Level of Assist: 5 Gait Assistive Device: FWW Stairs (FIM): 2 # of Steps: 4 1 Step (curb) (QC): 4 4 Steps (QC): 4 Stairs Level Of Assist: 4 PT Plan Problem List Problem List: Activity Tolerance, Functional Strength, Safety, Balance, Gait, Transfer, Bed Mobility Treatment/Plan Treatment Plan: Continue Plan of Care Treatment Plan: Bed Mobility, Concurrent Therapy, Education, Functional Activity Abdulkadir, Functional Strength, Group Therapy, Gait, Safety, Therapeutic Exercise, Transfers Treatment Duration: Apr 13, 2018 Frequency: At least 5 of 7 days/Wk (IRF) Estimated Hrs Per Day: 1.5 hours per day Patient and/or Family Agrees t: Yes Safety Risks/Education Patient Education: Gait Training, Transfer Techniques, Correct Positioning, Safety Issues Teaching Recipient: Patient Teaching Methods: Demonstration, Discussion Response to Teaching: Reinforcement Needed Time/GCodes Time In: 1300 Time Out: 1315 Total Billed Treatment Time: 15 Total Billed Treatment 1 visit GT 15' KRUPA ACKERMAN PT Mar 30, 2018 13:28
[2018-03-30 15:54] VITALS: BP 137/70
--- NOTE | 2018-03-30 15:58 | Speech Therapy Daily Note ---
Speech Daily Progress Note Subjective Date Seen by Provider: Mar 30, 2018 Time Seen by Provider: 09:30 Pt up in chair. Cooperative. Pain Numeric Pain Scale: 0-No Pain Objective Memory - Picture recall after 20 minutes was 90% accurate. Still using same strategy to facilitate recall. Reordering 4 words to form sentences. Pt was 75% accurate. Assessment Assessment Current Status: Fair Progress Treatment Plan Continue Plan of Care Communication Comprehension: 7 Expression: 7 Social Cognition Social Interaction: 7 Problem Solvin Memory: 3 Speech Short Term Goals Short Term Goals Short Term Goals Pt will complete various verbal/auditory memory activities with at least 75% and min assist. Time Frame-ST week Comprehension: 7 Expression: 7 Social Interaction: 5 Problem Solvin Memory: 4 Speech Detention Goals [employer] Principal Goals Pt will demonstrate functional memory skills for maximum independence in the home setting. Time Frame: 2 weeks Comprehension: 7 Expression: 7 Social Interaction: 7 Problem Solvin Memory: 5 Speech-Plan Patient/Family Goals Patient/Family Goals: to return home Treatment Plan Speech Therapy Treatment Plan: Continue Plan of Care Pt is participatory but still demonstrates lack of motivation. Treatment Duration: Mar 31, 2018 Frequency: 5 times per week Estimated Hrs Per Day: .5 hour per day Rehab Potential: Fair Barriers to Learning: decreased motivation Pt/Family Agrees to Plan: Yes Safety Risks/Education Teaching Recipient: Patient Teaching Methods: Discussion Response to Teaching: Verbalize Understanding Time Speech Therapy Time In: 09:30 Speech Therapy Time Out: 10:00 Total Billed Time: 30 Billed Treatment Time 1, MATEO Sweeney Mar 30, 2018 15:58
--- NOTE | 2018-03-30 19:30 | PM & R (SOAP) Progress Note ---
Subjective This was a face to face visit with the patient. Date Seen by Provider: Mar 30, 2018 Time Seen by Provider: 18:55 Subjective/Events-last exam Patient was seen in his room this evening Patient SBA for transfers Strength BLES improving Mood much improved Patient moved to apartment Date Identified: Mar 30, 2018 Time Identified: 18:45 Medication Intervention: Continues with steroid taper Objective Physician Exam Last Set of Vital Signs Vital Signs Date Time Temp Pulse Resp B/P (MAP) Pulse Ox O2 Delivery O2 Flow Rate FiO2 03/30/18 17:05 Room Air 03/30/18 15:54 98.1 56 16 137/70 (92) 97 Capillary Refill : I&O Intake and Output 03/30/18 00:00 Intake Total 1100 ml Output Total 350 ml Balance 750 ml Intake Oral 1100 ml Output Urine Total 350 ml # Voids 3 # Bowel Movements 1 General: Alert, Oriented X3, Cooperative, No Acute Distress HEENT: Atraumatic, PERRLA, EOMI, Mucous Memb Moist/[place] Neck: Supple, No JVD Lungs: Clear to Auscultation Heart: Normal S1, Normal S2, Other (Bradycardia) Abdomen: Normal Bowel Sounds, Soft, No Tenderness Extremities: No Clubbing, No Cyanosis, Other (TRACE EDEMA) Skin: No Rashes Neuro: Normal Speech, Other (wEAKNESS bles rt^ LEFT) Psych/Mental Status: Mental Status NL Assessment/Plan Assessment and Plan 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
[2018-03-30] MEDS: lisINopril 20 MG (PRINIVIL) TABLET PO SCH (21:09)
[2018-03-31 05:00] VITALS: BP 151/74
[2018-03-31] MEDS: predniSONE 10 MG TAB PO SCH (06:10)
[2018-03-31] MEDS: OMEGA 3 (FISH OIL) 1000 MG CAP PO SCH ×2 (06:10→16:43)
[2018-03-31 08:00] VITALS: BP 150/64
[2018-03-31] MEDS: POLYETHYLENE GLYCOL 17 GM (MIRALAX) PACK PO SCH ×2 (08:47→20:05)
[2018-03-31] MEDS: CELECOXIB 100 MG (CeleBREX) CAP PO SCH (08:48)
[2018-03-31] MEDS: NEBIVOLOL 5 MG TAB (BYSTOLIC) PO SCH (08:48)
[2018-03-31] MEDS: FAMOTIDINE 20 MG (PEPCID) TABLET PO SCH ×2 (08:48→20:04)
[2018-03-31] MEDS: ASPIRIN E.C. 81 MG (ECOTRIN) TAB PO SCH (08:48)
[2018-03-31] MEDS: LORATADINE (CLARITIN) 10 MG TAB PO SCH (08:49)
[2018-03-31] MEDS: amLODIPine 10 MG (NORVASC) TAB PO SCH (08:49)
--- NOTE | 2018-03-31 11:14 | Occupational Ther Daily Note ---
OT Current Status-Daily Note Subjective Pt alert, sitting in recliner. No c/o pain. Pt agrees to therapy. Mental Status/Objective Patient Orientation: Person, Place, Time, Situation Functional [place] Measure 0=Not Assessed/NA 4=Minimal Assistance 1=Total Assistance 5=Supervision or Setup 2=Maximal Assistance 6=Modified [place] 3=Moderate Assistance 7=Complete [place] Attachments: IV ADL-Treatment Functional [place] Measure 0=Not Assessed/NA 4=Minimal Assistance 1=Total Assistance 5=Supervision or Setup 2=Maximal Assistance 6=Modified [place] 3=Moderate Assistance 7=Complete IndependenceIRFPAI Quality Coding Scale 6 Independent with activity with or without an assistive device 5 Patient requires set up or clean up by helper. Patient completes activity by themselves 4 Supervision or touching assist (CGA). [place] provide cues , steadying assist 3 The helper provides less than half the effort to complete the activity 2 The helper provides more than half the effort to complete the activity 1 Dependent. The helper does all the effort to complete an activity 7 Patient refused to complete or attempt activity 9 The patient did not perform the activity before the current illness or injury 88 Not attempted due to Medical conditions or safety concerns Grooming (FIM): 5 (Supervision. Pt completes in associate product integrity engineer front of sink using counter for stability. ) Oral Hygiene (QC): 4 Bathing (FIM): 6 (Mod I. Pt completes using hand held shower, tub bench, and grabbards for stability. ) Bathing Location: L Arm, R Arm, L Upper Leg, R Upper Leg, L Lower Leg ( including foot), R Lower Leg (including foot), Chest, Abdomen, Buttocks, Perineal Area Shower/Bathe Self (QC): 4 Upper Body (FIM): 5 (Set up. Pt completes in sitting position. ) Upper Body Dressing (QC): 5 Lower Body Dressing (FIM): 5 (Set up. Pt completes in sitting position using AE to reach LE. Pt able to don/doff LE dressing using AE. Pt don/doff socks and shoes using AE. SBA in standing to hike pants over hips using FWW for stability. ) Lower Body Dressing (QC): 4 On/Off Footwear (QC): 5 Toileting (FIM): 5 (SBA, in standing position in front of toilet, pt urinated using grabbars for stability while standing. Pt uses grabbars for stability while standing to manipulate clothing. ) Toileting Hygiene (QC): 4 Transfers (B, C, W/C) (FIM): 5 (SBA, pt uses FWW for stability. ) Tub Transfer(FIM): 5 (Supervision. Pt completes using tub bench, FWW and grabbars for stability. Pt used gait belt to wrap around leg to lift leg over the side of tub. ) Pt takes increased amount of time to complete ADLs. Pt has his own routine and does not like to change. After therapy, pt sitting in recliner with call light/ phone within reach. All needs met in room. OT Short Term Goals Short Term Goals Time Frame: Mar 30, 2018 Lower Body Dressing(FIM): 4 Toilet/Commode Transfer(FIM): 5 Shower Transfer(FIM): 5 Comprehension(FIM): 7 Expression(FIM): 7 Social Interaction(FIM): 5 Problem Solving(FIM): 5 Memory(FIM): 4 Additional Short Term Goals: 1-Demonstrate ADL Tasks, 2-Verbalize Understanding , 3-ImproveStrength/Abdulkadir 1=Demonstrate adherence to instructed precautions during ADL tasks. 2=Patient will verbalize/demonstrate understanding of assistive devices/ modifications for ADL. 3=Patient will improve strength/tolerance for activity to enable patient to perform ADL's. OT Mcfp Goals Mcfp Goals Time Frame: Apr 14, 2018 Eating (FIM): 7 Eating (QC): 6 Groomin Oral Hygiene (QC): 6 Bathing(FIM): 6 Shower/Bathe Self (QC): 6 Upper Body Dressing(FIM): 6 Upper Body Dressing (QC): 6 Lower Body Dressing(FIM): 6 Lower Body Dressing (QC): 6 On/Off Footwear (QC): 6 Toileting(FIM): 6 Toileting Hygiene (QC): 6 Toilet/Commode Transfer(FIM): 6 Toilet/Commode Transfer (QC): 6 Shower Transfer(FIM): 6 Comprehension(FIM): 7 Expression (FIM): 7 Social Interaction(FIM): 7 Problem Solving(FIM): 5 Memory(FIM): 5 Additional Goals: 1-Demonstrate ADL Tasks, 2-Verbalize Understanding, 3- ImproveStrength/Abdulkadir 1=Demonstrate adherence to instructed precautions during ADL tasks. 2=Patient will verbalize/demonstrate understanding of assistive devices/ modifications for ADL. 3=Patient will improve strength/tolerance for activity to enable patient to perform ADL's. OT Education/Plan Problem List/Assessment Pt would benefit from skilled OT to increase his independence in basic self care to allow him to safely return home Discharge Recommendations Plan/Recommendations: Continue POC Treatment Plan/Plan of Care Patient would benefit from OT for education, treatment and training to promote independence in ADL's, mobility, safety and/or upper extremity function for ADL' s. Plan of Care: ADL Retraining, Functional Mobility, Group Exercise/Act as Ind ( education, exercise, memory, activity tolerance, functional activities, socialization) Treatment Duration: Apr 14, 2018 Frequency: At least 5 of 7 days/Wk (IRF) Estimated Hrs Per Day: 1.5 hours per day Agreement: Yes Rehab Potential: Fair Time/GCodes Start Time: 08:00 Stop Time: 09:00 Total Time Billed (hr/min): 60 Billed Treatment Time 1 visit- ADL 4 (60 min) PARK CARRASCO OT Mar 31, 2018 11:14
--- NOTE | 2018-03-31 11:59 | Physical Therapy Daily Note ---
PT Daily Note-Current Subjective pt in recliner pre tx, agrees to PT, no pain to report Appearance pt in bed post tx, w/ phone, call light, tray, all needs met Mental Status Patient Orientation: Person, Place, Time Transfers Functional [place] Measure 0=Not Assessed/NA 4=Minimal Assistance 1=Total Assistance 5=Supervision or Setup 2=Maximal Assistance 6=Modified [place] 3=Moderate Assistance 7=Complete IndependenceIRFPAI Quality Coding Scale 6 Independent with activity with or without an assistive device 5 Patient requires set up or clean up by helper. Patient completes activity by themselves 4 Supervision or touching assist (CGA). [place] provide cues , steadying assist 3 The helper provides less than half the effort to complete the activity 2 The helper provides more than half the effort to complete the activity 1 Dependent. The helper does all the effort to complete an activity 7 Patient refused to complete or attempt activity 9 The patient did not perform the activity before the current illness or injury 88 Not attempted due to Medical conditions or safety concerns Transfers (B, C, W/C) (FIM): 5 Supine to/from Sit: 5 SBA sit<->stand Weight Bearing Right Lower Extremity: Right Full Weight Bearing Left Lower Extremity: Left Full Weight Bearing Gait Training Does the Patient Walk?: Yes Gait (FIM): 6 Distance: 300', 150', 40'x2 Gait Level of Assist: 6 Gait Persons Needed: 1 Gait Assistive Device: FWW pt ambulates to/from gym w/ FWW mod I, improved gait speed and stride length Stair Training Stair Training: Handrails/: 2 handrails Stairs (FIM): 5 #of Steps: 12 1 Step (curb) (QC): 5 4 Steps (QC): 5 12 Steps (QC): 5 Stairs: Pattern: Step to Level of Assist: 5 pt ascends/descends 12 stairs w/ SBA using 2 handrails w/ step-to pattern Exercises obstacle course: side-stepping, step onto airex pad, picking up object, up/over 1 step, step over object, x2 laps FWW SBA NuStep Minutes: 20 NuStep Workload: 6 Treatments gait training, stair training, endurance training, functional activity Assessment Current Status: Fair Progress improved gait speed and stride length, increased ability to use stairs PT Short Term Goals Short Term Goals Time Frame: Mar 30, 2018 Gait (FIM): 3 Distance (FIM): 3=150 ft Gait Distance Comment: 150' Gait Level of Assist: 4 Gait Assistive Device: FWW PT Shelter Goals Shelter Goals PT Shelter Goals Time Frame: Apr 06, 2018 Transfers (B,C,W/C) (FIM): 5 Sit to Lying (QC): 6 Lying-Sitting on Side/Bed(QC): 6 Sit to Stand (QC): 4 Rollin Roll Left to Right (QC): 6 Chair/Ysk-xp-Hcqce Xfer(QC): 4 Car Transfer (QC): 4 Does the Patient Walk: Yes Gait (FIM): 5 Distance: 250' Walk 10 feet (QC): 4 Walk 10ft-Uneven Surface(QC): 4 Walk 50ft with 2 Turns (QC): 4 Walk 150 ft (QC): 4 Gait Level of Assist: 5 Gait Assistive Device: FWW Stairs (FIM): 2 # of Steps: 4 1 Step (curb) (QC): 4 4 Steps (QC): 4 Stairs Level Of Assist: 4 PT Plan Problem List Problem List: Activity Tolerance, Functional Strength, Safety, Balance, Gait, Transfer, Bed Mobility Treatment/Plan Treatment Plan: Continue Plan of Care Treatment Plan: Bed Mobility, Concurrent Therapy, Education, Functional Activity Abdulkadir, Functional Strength, Group Therapy, Gait, Safety, Therapeutic Exercise, Transfers Treatment Duration: Apr 13, 2018 Frequency: At least 5 of 7 days/Wk (IRF) Estimated Hrs Per Day: 1.5 hours per day Patient and/or Family Agrees t: Yes Safety Risks/Education Patient Education: Gait Training, Transfer Techniques, Steps, Correct Positioning, Safety Issues Teaching Recipient: Patient Teaching Methods: Demonstration, Discussion Response to Teaching: Reinforcement Needed Time/GCodes Time In: 1100 Time Out: 1200 Total Billed Treatment Time: 60 Total Billed Treatment 1 visit GT 15' EX 20' FA 25' GREGORIA TREVIÑO PT Mar 31, 2018 11:59
--- NOTE | 2018-03-31 12:50 | PM & R (SOAP) Progress Note ---
Subjective This was a face to face visit with the patient. Date Seen by Provider: Mar 31, 2018 Time Seen by Provider: 07:30 Subjective/Events-last exam Patient was seen in his room this AM Patient SBA for transfers Blood pressure and Pulse stable but SBP slightly elevated and Pulse slightly bradycardia DR Blas has assessed Objective Physician Exam Last Set of Vital Signs Vital Signs Date Time Temp Pulse Resp B/P (MAP) Pulse Ox O2 Delivery O2 Flow Rate FiO2 03/31/18 08:00 98.2 56 17 150/64 (92) 97 Room Air Capillary Refill : I&O Intake and Output 03/31/18 00:00 Intake Total 1380 ml Output Total 1075 ml Balance 305 ml Intake Oral 1380 ml Output Urine Total 1075 ml # Voids 2 # Bowel Movements 2 General: Alert, Oriented X3, Cooperative, No Acute Distress HEENT: Atraumatic, PERRLA, EOMI, Mucous Memb Moist/[place] Neck: Supple, No JVD Lungs: Clear to Auscultation Heart: Normal S1, Normal S2, Other (Bradycardia) Abdomen: Normal Bowel Sounds, Soft, No Tenderness Extremities: No Clubbing, No Cyanosis, Other (TRACE EDEMA) Skin: No Rashes Neuro: Normal Speech, Other (wEAKNESS bles rt^ LEFT) Psych/Mental Status: Mental Status NL Assessment/Plan Assessment and Plan 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
--- NOTE | 2018-03-31 13:27 | Cardiology Progress Note ---
Subjective Date Seen by Provider: Mar 31, 2018 Time Seen by Provider: 13:24 Subjective/Events-last exam Patient is laying down in bed, denied any chest pain, no shortness of breath. No palpitation Review of Systems General: No Chills, No Night Sweats, No Fatigue, No Malaise, No Appetite, No Other HEENT: No Head Aches, No Visual Changes, No Eye Pain, No Ear Pain, No Dysphasia , No Sinus Congestion, No Post Nasal Drip, No Sore Throat, No Other Pulmonary: No Dyspnea, No Cough, No Pleuritic Chest Pain, No Other Cardiovascular: No: Chest Pain, Palpitations, Orthopnea, Paroxysmal Noc. Dyspnea, Edema, Lt Headedness, Other Objective-Cardiology Exam Last Set of Vital Signs Vital Signs 03/31/18 08:00 Temp 98.2 Pulse 56 Resp 17 B/P (MAP) 150/64 (92) Pulse Ox 97 O2 Delivery Room Air Capillary Refill : I&O Intake and Output 03/31/18 00:00 Intake Total 1380 ml Output Total 1075 ml Balance 305 ml Intake Oral 1380 ml Output Urine Total 1075 ml # Voids 2 # Bowel Movements 2 General: Alert, Oriented X3, Cooperative, No Acute Distress HEENT: Atraumatic, PERRLA, EOMI, Mucous Memb Moist/[place] Neck: Supple, No JVD Lungs: Clear to Auscultation Heart: Normal S1, Normal S2, Other (Bradycardia) Abdomen: Normal Bowel Sounds, Soft, No Tenderness Extremities: No Clubbing, No Cyanosis, Other (TRACE EDEMA) Skin: No Rashes Neuro: Normal Speech, Other (wEAKNESS bles rt^ LEFT) Psych/Mental Status: Mental Status NL A/P-Cardiology Admission Diagnosis Spinal stenosis Generalized weakness Labile hypertension Coronary artery disease Sinus node dysfunction Assessment/Plan Generalized weakness and loss of energy. Receiving physical therapy, managed by Dr. 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 Improving. Followed by Dr. Lion Cruz, received antibiotic, management by primary care physician Bradycardia secondary to medication, has history of underlying sinus node dysfunction that was worsening with medication, his baseline heart rate is between 40 and 50. Patient has been asymptomatic with this heart rate as an outpatient. Continue to monitor at this time. 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 Medical therapy was recommended. Continue to monitor Resistant hypertension, receiving multiple medication, labile blood pressure, difficult to achieve adequate control while on prednisone. Continue to monitor at this time. Renal ultrasound was done in November 2016 showing normal bilateral kidneys with no significance disease in the renal arteries, continue to monitor Peripheral edema, continue to monitor at this time Melanoma stage III D, status post excision from the left arm and left axillary dissection, received immunotherapy, no radiation, followed by Dr. King Lipid profile was done in November 2017 showing total cholesterol 177, HDL 48, LDL 115, triglyceride 80, continue to monitor. Osteoarthritis, maintained on Celebrex which could be affecting negatively the blood pressure Extensive surgical history, in November 2015 underwent repair of bowel due to complication of hernia surgery and removal of infected mesh surgery. History of laminectomy, neck surgery for spinal stenosis, radical prostatectomy , carpal tunnel surgery. Mild bilateral carotid stenosis, ultrasound was done in December 2017, continue to monitor. Clinical Quality Measures DVT/VTE Risk/Contraindication: Risk Factor Score Per Nursin RFS Level Per Nursing on Admit: 3=High TIERRA MARIN MD Mar 31, 2018 1:27 pm
--- NOTE | 2018-03-31 14:42 | Therapy Group Daily Note ---
Therapy Daily Group Note Patient Education Topic Home Safety, Fall Prevention Exercises LE Seated Exercise, UE Exercise Other/Notes Pt was an active participant in OT/PT group. He introduced himself and shared his favorite thing about . He contributed to education/discussion on falls and fall prevention and identified ways to make his environment safer. He also led the group in a seated UE or LE exercise. He walked back to his room with SBA, FWW and was left up in recliner, all needs met. Start Time: 13:00 Stop Time: 14:15 Total Billed Treatment Time: 75 Total Billed Treatment visit, 75 minutes group KWAN CASILLAS OT Mar 31, 2018 14:42
--- NOTE | 2018-03-31 14:58 | Speech Therapy Daily Note ---
Speech Daily Progress Note Subjective Date Seen by Provider: Mar 31, 2018 Time Seen by Provider: 10:30 Pt in chair watching TV. Pain Numeric Pain Scale: 0-No Pain Objective Memory - Picture recall after 20 minutes was 85% accurate. Pt provided 4 words and he was to arrange the words into sentences. Pt was 75% accurate. Assessment Assessment Current Status: Fair Progress Treatment Plan Continue Plan of Care Communication Comprehension: 7 Expression: 7 Social Cognition Social Interaction: 7 Problem Solvin Memory: 3 Speech Short Term Goals Short Term Goals Short Term Goals Pt will complete various verbal/auditory memory activities with at least 75% and min assist. Time Frame-ST week Comprehension: 7 Expression: 7 Social Interaction: 5 Problem Solvin Memory: 4 Speech Half-Way Goals Half-Way Goals Pt will demonstrate functional memory skills for maximum independence in the home setting. Time Frame: 2 weeks Comprehension: 7 Expression: 7 Social Interaction: 7 Problem Solvin Memory: 5 Speech-Plan Patient/Family Goals Patient/Family Goals: to return home Treatment Plan Speech Therapy Treatment Plan: Continue Plan of Care Pt continues to be not very motivated in tx. Treatment Duration: Mar 31, 2018 Frequency: 5 times per week Estimated Hrs Per Day: .5 hour per day Rehab Potential: Fair Pt/Family Agrees to Plan: Yes Safety Risks/Education Teaching Recipient: Patient Teaching Methods: Discussion Response to Teaching: Verbalize Understanding Time Speech Therapy Time In: 10:30 Speech Therapy Time Out: 11:00 Total Billed Time: 30 Billed Treatment Time 1, MATEO BATISTA Mar 31, 2018 14:58
[2018-03-31 17:49] VITALS: BP 127/63
[2018-03-31] MEDS: lisINopril 20 MG (PRINIVIL) TABLET PO SCH (20:04)
[2018-04-01 05:27] VITALS: BP 164/68
[2018-04-01] MEDS: OMEGA 3 (FISH OIL) 1000 MG CAP PO SCH ×2 (06:10→16:48)
[2018-04-01] MEDS: predniSONE 10 MG TAB PO SCH (06:10)
--- NOTE | 2018-04-01 07:27 | PM & R (SOAP) Progress Note ---
Subjective This was a face to face visit with the patient. Date Seen by Provider: Apr 01, 2018 Time Seen by Provider: 07:00 Subjective/Events-last exam Patient was seen in his room this AM Patient SBA for transfers Date Identified: Apr 01, 2018 Time Identified: 07:00 Medication Intervention: Steroid taper Objective Physician Exam Last Set of Vital Signs Vital Signs Date Time Temp Pulse Resp B/P (MAP) Pulse Ox O2 Delivery O2 Flow Rate FiO2 04/01/18 05:27 99.4 56 18 164/68 (100) 96 Room Air Capillary Refill : I&O Intake and Output 04/01/18 00:00 Intake Total 1550 ml Output Total 300 ml Balance 1250 ml Intake Oral 1550 ml Output Urine Total 300 ml # Voids 5 General: Alert, Oriented X3, Cooperative, No Acute Distress HEENT: Atraumatic, PERRLA, EOMI, Mucous Memb Moist/[place] Neck: Supple, No JVD Lungs: Clear to Auscultation Heart: Normal S1, Normal S2, Other (Bradycardia) Abdomen: Normal Bowel Sounds, Soft, No Tenderness Extremities: No Clubbing, No Cyanosis, Other (TRACE EDEMA) Skin: No Rashes Neuro: Normal Speech, Other (wEAKNESS bles rt^ LEFT) Psych/Mental Status: Mental Status NL Assessment/Plan Assessment and Plan Autoimmnune vasculitis secondary to treatment of melanoma improving Steroid taper LE weakness improving Pneuminia treated HTN with bradycardia stable Cardiology has seen Anemia DJD spine s/p lumbar and C spine surgery remote Plan Continue PT/OT/Steroid taper Probable discharge next week will f/u with SW next week F/U with DR Lion Dunn (1) Right leg weakness Status: Acute Co-Morbidities that are continuing to impact the rehab process: (include details ) DANNA LAWS MD Apr 01, 2018 07:27
[2018-04-01] MEDS: ASPIRIN E.C. 81 MG (ECOTRIN) TAB PO SCH (09:01)
[2018-04-01] MEDS: amLODIPine 10 MG (NORVASC) TAB PO SCH (09:01)
[2018-04-01] MEDS: LORATADINE (CLARITIN) 10 MG TAB PO SCH (09:01)
[2018-04-01] MEDS: FAMOTIDINE 20 MG (PEPCID) TABLET PO SCH ×2 (09:01→20:44)
[2018-04-01] MEDS: POLYETHYLENE GLYCOL 17 GM (MIRALAX) PACK PO SCH ×2 (09:01→19:32)
[2018-04-01] MEDS: CELECOXIB 100 MG (CeleBREX) CAP PO SCH (09:02)
[2018-04-01] MEDS: NEBIVOLOL 5 MG TAB (BYSTOLIC) PO SCH (09:02)
--- NOTE | 2018-04-01 10:51 | Physical Therapy Daily Note ---
PT Daily Note-Current Subjective Pt. agrees to Rx. Wants to make sure his med Alert works properly when he gets home. Pain Numeric Pain Scale: 0-No Pain Mental Status Patient Orientation: Person, Place, Time, Situation Transfers Functional [place] Measure 0=Not Assessed/NA 4=Minimal Assistance 1=Total Assistance 5=Supervision or Setup 2=Maximal Assistance 6=Modified [place] 3=Moderate Assistance 7=Complete IndependenceIRFPAI Quality Coding Scale 6 Independent with activity with or without an assistive device 5 Patient requires set up or clean up by helper. Patient completes activity by themselves 4 Supervision or touching assist (CGA). [place] provide cues , steadying assist 3 The helper provides less than half the effort to complete the activity 2 The helper provides more than half the effort to complete the activity 1 Dependent. The helper does all the effort to complete an activity 7 Patient refused to complete or attempt activity 9 The patient did not perform the activity before the current illness or injury 88 Not attempted due to Medical conditions or safety concerns Transfers (B, C, W/C) (FIM): 6 Scootin Rollin Supine to/from Sit: 6 Sit to/from Stand: 6 Weight Bearing Right Lower Extremity: Right Full Weight Bearing Left Lower Extremity: Left Full Weight Bearing Gait Training Does the Patient Walk?: Yes Gait (FIM): 5 Distance (FIM): 3=150 ft (400x2,150) Gait Level of Assist: 5 Gait Persons Needed: 1 Gait Assistive Device: FWW Exercises Seated Therapy Exercises: Ankle pumps, Sit to stand, Long arc quads, Hip flexion, Hip abd/add Seated Reps: 12 NuStep Minutes: 12 NuStep Workload: 5 Treatments presses on Nustep x 12 Assessment Current Status: Good Progress PT Short Term Goals Short Term Goals Time Frame: Mar 30, 2018 Gait (FIM): 3 Distance (FIM): 3=150 ft Gait Distance Comment: 150' Gait Level of Assist: 4 Gait Assistive Device: FWW PT Area Coordinator Goals Area Coordinator Goals PT Halfway Goals Time Frame: Apr 06, 2018 Transfers (B,C,W/C) (FIM): 5 Sit to Lying (QC): 6 Lying-Sitting on Side/Bed(QC): 6 Sit to Stand (QC): 4 Rollin Roll Left to Right (QC): 6 Chair/[id number] Xfer(QC): 4 Car Transfer (QC): 4 Does the Patient Walk: Yes Gait (FIM): 5 Distance: 250' Walk 10 feet (QC): 4 Walk 10ft-Uneven Surface(QC): 4 Walk 50ft with 2 Turns (QC): 4 Walk 150 ft (QC): 4 Gait Level of Assist: 5 Gait Assistive Device: FWW Stairs (FIM): 2 # of Steps: 4 1 Step (curb) (QC): 4 4 Steps (QC): 4 Stairs Level Of Assist: 4 PT Plan Treatment/Plan Treatment Plan: Continue Plan of Care Treatment Plan: Bed Mobility, Concurrent Therapy, Education, Functional Activity Abdulkadir, Functional Strength, Group Therapy, Gait, Safety, Therapeutic Exercise, Transfers Treatment Duration: Apr 13, 2018 Frequency: At least 5 of 7 days/Wk (IRF) Estimated Hrs Per Day: 1.5 hours per day Patient and/or Family Agrees t: Yes Safety Risks/Education Patient Education: Gait Training, Transfer Techniques, Correct Positioning, Disease Process, Safety Issues Teaching Recipient: Patient Teaching Methods: Demonstration, Discussion Response to Teaching: Verbalize Understanding, Return Demonstration, Reinforcement Needed Time/GCodes Time In: 1015 Time Out: 1040 Total Billed Treatment Time: 25 Total Billed Treatment 1,EX13m,GT12m G Codes Necessary: NEIL Do SENIOR PLANNING ANALYST Apr 01, 2018 10:50
--- NOTE | 2018-04-01 11:19 | Cardiology Progress Note ---
Subjective Date Seen by Provider: Apr 01, 2018 Time Seen by Provider: 11:18 Subjective/Events-last exam Patient is in a chair, feeling better, no new complaint Review of Systems General: No Chills, No Night Sweats, No Fatigue, No Malaise, No Appetite, No Other HEENT: No Head Aches, No Visual Changes, No Eye Pain, No Ear Pain, No Dysphasia , No Sinus Congestion, No Post Nasal Drip, No Sore Throat, No Other Pulmonary: No Dyspnea, No Cough, No Pleuritic Chest Pain, No Other Cardiovascular: No: Chest Pain, Palpitations, Orthopnea, Paroxysmal Noc. Dyspnea, Edema, Lt Headedness, Other Objective-Cardiology Exam Last Set of Vital Signs Vital Signs 04/01/18 05:27 Temp 99.4 Pulse 56 Resp 18 B/P (MAP) 164/68 (100) Pulse Ox 96 O2 Delivery Room Air Capillary Refill : I&O Intake and Output 04/01/18 00:00 Intake Total 1550 ml Output Total 300 ml Balance 1250 ml Intake Oral 1550 ml Output Urine Total 300 ml # Voids 5 General: Alert, Oriented X3, Cooperative, No Acute Distress HEENT: Atraumatic, PERRLA, EOMI, Mucous Memb Moist/[place] Neck: Supple, No JVD Lungs: Clear to Auscultation Heart: Normal S1, Normal S2, Other (Bradycardia) Abdomen: Normal Bowel Sounds, Soft, No Tenderness Extremities: No Clubbing, No Cyanosis, Other (TRACE EDEMA) Skin: No Rashes Neuro: Normal Speech, Other (wEAKNESS bles rt^ LEFT) Psych/Mental Status: Mental Status NL A/P-Cardiology Admission Diagnosis Spinal stenosis Generalized weakness Labile hypertension Coronary artery disease Sinus node dysfunction Assessment/Plan Generalized weakness and loss of energy. Receiving physical therapy, managed by Dr. 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 Improving. Followed by Dr. Lion Cruz, received antibiotic, management by primary care physician Bradycardia secondary to medication, has history of underlying sinus node dysfunction that was worsening with medication, his baseline heart rate is between 40 and 50. Patient has been asymptomatic with this heart rate as an outpatient. Continue to monitor at this time. 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 Medical therapy was recommended. Continue to monitor Resistant hypertension, receiving multiple medication, labile blood pressure, difficult to achieve adequate control while on prednisone. Continue to monitor at this time. Renal ultrasound was done in November 2016 showing normal bilateral kidneys with no significance disease in the renal arteries, continue to monitor Peripheral edema, continue to monitor at this time Melanoma stage III D, status post excision from the left arm and left axillary dissection, received immunotherapy, no radiation, followed by Dr. King Lipid profile was done in November 2017 showing total cholesterol 177, HDL 48, LDL 115, triglyceride 80, continue to monitor. Osteoarthritis, maintained on Celebrex which could be affecting negatively the blood pressure Extensive surgical history, in November 2015 underwent repair of bowel due to complication of hernia surgery and removal of infected mesh surgery. History of laminectomy, neck surgery for spinal stenosis, radical prostatectomy , carpal tunnel surgery. Mild bilateral carotid stenosis, ultrasound was done in December 2017, continue to monitor. Clinical Quality Measures DVT/VTE Risk/Contraindication: Risk Factor Score Per Nursin RFS Level Per Nursing on Admit: 3=High TIERRA MARIN MD Apr 01, 2018 11:19
[2018-04-01 17:01] VITALS: BP 116/64
[2018-04-01] MEDS: lisINopril 20 MG (PRINIVIL) TABLET PO SCH (20:44)
[2018-04-02] MEDS: OMEGA 3 (FISH OIL) 1000 MG CAP PO SCH ×2 (06:15→17:19)
[2018-04-02] MEDS: predniSONE 10 MG TAB PO SCH (06:15)
[2018-04-02 06:17] VITALS: BP 146/67
[2018-04-02] MEDS: FAMOTIDINE 20 MG (PEPCID) TABLET PO SCH ×2 (08:34→20:24)
[2018-04-02] MEDS: ASPIRIN E.C. 81 MG (ECOTRIN) TAB PO SCH (08:34)
[2018-04-02] MEDS: POLYETHYLENE GLYCOL 17 GM (MIRALAX) PACK PO SCH ×2 (08:34→19:31)
[2018-04-02] MEDS: LORATADINE (CLARITIN) 10 MG TAB PO SCH (08:35)
[2018-04-02] MEDS: CELECOXIB 100 MG (CeleBREX) CAP PO SCH (08:35)
--- NOTE | 2018-04-02 08:36 | Cardiology Progress Note ---
Subjective Date Seen by Provider: Apr 02, 2018 Time Seen by Provider: 08:35 Subjective/Events-last exam Patient is in a chair, no new complaint Review of Systems General: No Chills, No Night Sweats, No Fatigue, No Malaise, No Appetite, No Other HEENT: No Head Aches, No Visual Changes, No Eye Pain, No Ear Pain, No Dysphasia , No Sinus Congestion, No Post Nasal Drip, No Sore Throat, No Other Pulmonary: No Dyspnea, No Cough, No Pleuritic Chest Pain, No Other Cardiovascular: No: Chest Pain, Palpitations, Orthopnea, Paroxysmal Noc. Dyspnea, Edema, Lt Headedness, Other Objective-Cardiology Exam Last Set of Vital Signs Vital Signs 04/02/18 06:17 Temp 98.9 Pulse 51 Resp 16 B/P (MAP) 146/67 (93) Pulse Ox 97 O2 Delivery Room Air Capillary Refill : I&O Intake and Output 04/02/18 00:00 Intake Total 1550 ml Balance 1550 ml Intake Oral 1550 ml # Voids 8 # Bowel Movements 2 General: Alert, Oriented X3, Cooperative, No Acute Distress HEENT: Atraumatic, PERRLA, EOMI, Mucous Memb Moist/[place] Neck: Supple, No JVD Lungs: Clear to Auscultation Heart: Normal S1, Normal S2, Other (Bradycardia) Abdomen: Normal Bowel Sounds, Soft, No Tenderness Extremities: No Clubbing, No Cyanosis, Other (TRACE EDEMA) Skin: No Rashes Neuro: Normal Speech, Other (wEAKNESS bles rt^ LEFT) Psych/Mental Status: Mental Status NL A/P-Cardiology Admission Diagnosis Spinal stenosis Generalized weakness Labile hypertension Coronary artery disease Sinus node dysfunction Assessment/Plan Generalized weakness and loss of energy. Receiving physical therapy, managed by Dr. 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 Improving. Followed by Dr. Lion Cruz, received antibiotic, management by primary care physician Bradycardia secondary to medication, has history of underlying sinus node dysfunction that was worsening with medication, his baseline heart rate is between 40 and 50. Patient has been asymptomatic with this heart rate as an outpatient. Continue to monitor at this time. 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 Medical therapy was recommended. Continue to monitor Resistant hypertension, receiving multiple medication, labile blood pressure, difficult to achieve adequate control while on prednisone. I am holding bystolic 10 mg today due to bradycardia Renal ultrasound was done in November 2016 showing normal bilateral kidneys with no significance disease in the renal arteries, continue to monitor Peripheral edema, continue to monitor at this time Melanoma stage III D, status post excision from the left arm and left axillary dissection, received immunotherapy, no radiation, followed by Dr. King Lipid profile was done in November 2017 showing total cholesterol 177, HDL 48, LDL 115, triglyceride 80, continue to monitor. Osteoarthritis, maintained on Celebrex which could be affecting negatively the blood pressure Extensive surgical history, in November 2015 underwent repair of bowel due to complication of hernia surgery and removal of infected mesh surgery. History of laminectomy, neck surgery for spinal stenosis, radical prostatectomy , carpal tunnel surgery. Mild bilateral carotid stenosis, ultrasound was done in December 2017, continue to monitor. Clinical Quality Measures DVT/VTE Risk/Contraindication: Risk Factor Score Per Nursin RFS Level Per Nursing on Admit: 3=High TIERRA MARIN MD Apr 02, 2018 08:36
[2018-04-02] MEDS: amLODIPine 10 MG (NORVASC) TAB PO SCH (08:46)
[2018-04-02 15:57] VITALS: BP 104/61
[2018-04-02] MEDS: lisINopril 20 MG (PRINIVIL) TABLET PO SCH (20:24)
[2018-04-03 05:38] VITALS: BP 150/69
[2018-04-03] MEDS: OMEGA 3 (FISH OIL) 1000 MG CAP PO SCH ×2 (05:39→16:14)
[2018-04-03] MEDS: POLYETHYLENE GLYCOL 17 GM (MIRALAX) PACK PO SCH ×2 (07:28→21:12)
--- NOTE | 2018-04-03 07:37 | Occupational Ther Daily Note ---
OT Current Status-Daily Note Subjective Pt sleeping,lying in bed. Awoke to name. N c/o pain. Pt agrees to therapy. Mental Status/Objective Patient Orientation: Person, Place, Time, Situation Functional [place] Measure 0=Not Assessed/NA 4=Minimal Assistance 1=Total Assistance 5=Supervision or Setup 2=Maximal Assistance 6=Modified [place] 3=Moderate Assistance 7=Complete [place] Attachments: IV ADL-Treatment Functional [place] Measure 0=Not Assessed/NA 4=Minimal Assistance 1=Total Assistance 5=Supervision or Setup 2=Maximal Assistance 6=Modified [place] 3=Moderate Assistance 7=Complete IndependenceIRFPAI Quality Coding Scale 6 Independent with activity with or without an assistive device 5 Patient requires set up or clean up by helper. Patient completes activity by themselves 4 Supervision or touching assist (CGA). [place] provide cues , steadying assist 3 The helper provides less than half the effort to complete the activity 2 The helper provides more than half the effort to complete the activity 1 Dependent. The helper does all the effort to complete an activity 7 Patient refused to complete or attempt activity 9 The patient did not perform the activity before the current illness or injury 88 Not attempted due to Medical conditions or safety concerns Eating (FIM): 7 (Pt able to manipulate packaging and uses normal utensils. ) Eating (QC): 6 Grooming (FIM): 6 (Pt completes in standing using counter for stability in front of sink. Concern for safety. ) Oral Hygiene (QC): 6 Bathing (FIM): 6 (Pt completes using hand held shower, tub bench and grabbars for stability. Concern for safety. ) Bathing Location: L Arm, R Arm, L Upper Leg, R Upper Leg, L Lower Leg ( including foot), R Lower Leg (including foot), Chest, Abdomen, Buttocks, Perineal Area Shower/Bathe Self (QC): 6 Upper Body (FIM): 5 (Set up. Pt completes by self in sitting position. ) Upper Body Dressing (QC): 5 Lower Body Dressing (FIM): 5 (Set up. Pt completes in sitting position using AE to reach LE and FWW for stability in standing to hike pants over hips. Pt able to don shoes using AE. Concern for safety. ) Lower Body Dressing (QC): 5 On/Off Footwear (QC): 5 Toileting (FIM): 6 (Pt completes in standing position using front of toilet and grabbars for stability while urinating and manipulating clothing. Concern for safety.) Toileting Hygiene (QC): 6 Transfers (B, C, W/C) (FIM): 6 (Pt went from lying supine to EOB using side of bed for stability. Pt uses EOB and FWW for stability in sit to stand. Concern for safety. ) Tub Transfer(FIM): 6 (Pt uses tub bench and grabbars for stability, using gait belt to bring legs over edge of tub. Concern for safety. ) Pt takes increased time to complete ADLs. After therapy, pt sitting in recliner with call light/ phone within reach. All needs met in room. OT Short Term Goals Short Term Goals Time Frame: Mar 30, 2018 Lower Body Dressing(FIM): 4 Toilet/Commode Transfer(FIM): 5 Shower Transfer(FIM): 5 Comprehension(FIM): 7 Expression(FIM): 7 Social Interaction(FIM): 5 Problem Solving(FIM): 5 Memory(FIM): 4 Additional Short Term Goals: 1-Demonstrate ADL Tasks, 2-Verbalize Understanding , 3-ImproveStrength/Abdulkadir 1=Demonstrate adherence to instructed precautions during ADL tasks. 2=Patient will verbalize/demonstrate understanding of assistive devices/ modifications for ADL. 3=Patient will improve strength/tolerance for activity to enable patient to perform ADL's. OT Long-Term Goals Commercial Loan Specialist Goals Time Frame: Apr 14, 2018 Eating (FIM): 7 Eating (QC): 6 Groomin Oral Hygiene (QC): 6 Bathing(FIM): 6 Shower/Bathe Self (QC): 6 Upper Body Dressing(FIM): 6 Upper Body Dressing (QC): 6 Lower Body Dressing(FIM): 6 Lower Body Dressing (QC): 6 On/Off Footwear (QC): 6 Toileting(FIM): 6 Toileting Hygiene (QC): 6 Toilet/Commode Transfer(FIM): 6 Toilet/Commode Transfer (QC): 6 Shower Transfer(FIM): 6 Comprehension(FIM): 7 Expression (FIM): 7 Social Interaction(FIM): 7 Problem Solving(FIM): 5 Memory(FIM): 5 Additional Goals: 1-Demonstrate ADL Tasks, 2-Verbalize Understanding, 3- ImproveStrength/Abdulkadir 1=Demonstrate adherence to instructed precautions during ADL tasks. 2=Patient will verbalize/demonstrate understanding of assistive devices/ modifications for ADL. 3=Patient will improve strength/tolerance for activity to enable patient to perform ADL's. OT Education/Plan Problem List/Assessment Pt would benefit from skilled OT to increase his independence in basic self care to allow him to safely return home Discharge Recommendations Plan/Recommendations: Continue POC Treatment Plan/Plan of Care Patient would benefit from OT for education, treatment and training to promote independence in ADL's, mobility, safety and/or upper extremity function for ADL' s. Plan of Care: ADL Retraining, Functional Mobility, Group Exercise/Act as Ind ( education, exercise, memory, activity tolerance, functional activities, socialization) Treatment Duration: Apr 14, 2018 Frequency: At least 5 of 7 days/Wk (IRF) Estimated Hrs Per Day: 1.5 hours per day Agreement: Yes Rehab Potential: Fair Time/GCodes Start Time: 06:45 Stop Time: 08:00 Total Time Billed (hr/min): 75 Billed Treatment Time 1 visit- ADL 5 (75 min) KRUPA WEI Apr 03, 2018 07:37
--- NOTE | 2018-04-03 08:55 | Cardiology Progress Note ---
Subjective Date Seen by Provider: Apr 03, 2018 Time Seen by Provider: 08:40 Subjective/Events-last exam Patient is sitting up in chair, denies any dizziness or lightheadedness. No complaints at this time. Objective-Cardiology Exam Last Set of Vital Signs Vital Signs 04/03/18 05:38 Temp 99.2 Pulse 51 Resp 16 B/P (MAP) 150/69 (96) Pulse Ox 94 O2 Delivery Room Air Capillary Refill : I&O Intake and Output 04/03/18 00:00 Intake Total 1730 ml Output Total 1300 ml Balance 430 ml Intake Oral 1730 ml Output Urine Total 1300 ml # Voids 5 General: Alert, Oriented X3, Cooperative, No Acute Distress HEENT: Atraumatic, PERRLA, EOMI, Mucous Memb Moist/[place] Neck: Supple, No JVD Lungs: Clear to Auscultation Heart: Normal S1, Normal S2, Other (Bradycardia) Abdomen: Normal Bowel Sounds, Soft, No Tenderness Extremities: No Clubbing, No Cyanosis, Other (TRACE EDEMA) Skin: No Rashes Neuro: Normal Speech, Cranial Nerves 3-12 NL Psych/Mental Status: Mental Status NL, Mood NL A/P-Cardiology Admission Diagnosis Spinal stenosis Generalized weakness Labile hypertension Coronary artery disease Sinus node dysfunction Assessment/Plan Generalized weakness and loss of energy. Receiving physical therapy, managed by Dr. 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 Improving. Followed by Dr. Seymour Pneumonia, received antibiotic, management by primary care physician Bradycardia secondary to medication, has history of underlying sinus node dysfunction that was worsening with medication, his baseline heart rate is between 40 and 50. Patient has been asymptomatic with this heart rate as an outpatient. Continue to monitor at this time. 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 Medical therapy was recommended. Continue to monitor Resistant hypertension, receiving multiple medication, labile blood pressure, difficult to achieve adequate control while on prednisone. I will restart Bystolic at 5mg daily, continue to monitor. Renal ultrasound was done in November 2016 showing normal bilateral kidneys with no significance disease in the renal arteries, continue to monitor Peripheral edema, continue to monitor at this time Melanoma stage III D, status post excision from the left arm and left axillary dissection, received immunotherapy, no radiation, followed by Dr. King Lipid profile was done in November 2017 showing total cholesterol 177, HDL 48, LDL 115, triglyceride 80, continue to monitor. Osteoarthritis, maintained on Celebrex which could be affecting negatively the blood pressure Extensive surgical history, in November 2015 underwent repair of bowel due to complication of hernia surgery and removal of infected mesh surgery. History of laminectomy, neck surgery for spinal stenosis, radical prostatectomy , carpal tunnel surgery. Mild bilateral carotid stenosis, ultrasound was done in December 2017, continue to monitor. Clinical Quality Measures DVT/VTE Risk/Contraindication: Risk Factor Score Per Nursin RFS Level Per Nursing on Admit: 3=High SKYLA HOLLIS Apr 03, 2018 08:55
[2018-04-03] MEDS: amLODIPine 10 MG (NORVASC) TAB PO SCH (09:04)
[2018-04-03] MEDS: ASPIRIN E.C. 81 MG (ECOTRIN) TAB PO SCH (09:04)
[2018-04-03] MEDS: FAMOTIDINE 20 MG (PEPCID) TABLET PO SCH ×2 (09:04→20:43)
[2018-04-03] MEDS: CELECOXIB 100 MG (CeleBREX) CAP PO SCH (09:04)
[2018-04-03] MEDS: LORATADINE (CLARITIN) 10 MG TAB PO SCH (09:04)
--- NOTE | 2018-04-03 09:14 | Cardiology Progress Note ---
Subjective Date Seen by Provider: Apr 03, 2018 Time Seen by Provider: 09:10 Subjective/Events-last exam Patient is feeling well. Denied any chest pain or shortness of breath. Denied any palpitation, syncope or near syncopal episodes Review of Systems General: No Chills, No Night Sweats; Fatigue; No Malaise, No Appetite, No Other HEENT: No Head Aches, No Visual Changes, No Eye Pain, No Ear Pain, No Dysphasia , No Sinus Congestion, No Post Nasal Drip, No Sore Throat, No Other Pulmonary: No Dyspnea, No Cough, No Pleuritic Chest Pain, No Other Cardiovascular: No: Chest Pain, Palpitations, Orthopnea, Paroxysmal Noc. Dyspnea, Edema, Lt Headedness, Other Objective-Cardiology Exam Last Set of Vital Signs Vital Signs 04/03/18 05:38 Temp 99.2 Pulse 51 Resp 16 B/P (MAP) 150/69 (96) Pulse Ox 94 O2 Delivery Room Air Capillary Refill : I&O Intake and Output 04/03/18 00:00 Intake Total 1730 ml Output Total 1300 ml Balance 430 ml Intake Oral 1730 ml Output Urine Total 1300 ml # Voids 5 General: Alert, Oriented X3, Cooperative, No Acute Distress HEENT: Atraumatic, PERRLA, EOMI, Mucous Memb Moist/[place] Neck: Supple, No JVD Lungs: Clear to Auscultation Heart: Normal S1, Normal S2, Other (Bradycardia) Abdomen: Normal Bowel Sounds, Soft, No Tenderness Extremities: No Clubbing, No Cyanosis, Other (TRACE EDEMA) Skin: No Rashes Neuro: Normal Speech, Cranial Nerves 3-12 NL Psych/Mental Status: Mental Status NL, Mood NL A/P-Cardiology Admission Diagnosis Spinal stenosis Generalized weakness Labile hypertension Coronary artery disease Sinus node dysfunction Assessment/Plan Generalized weakness and loss of energy. Receiving physical therapy, managed by Dr. 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 Improving. Followed by Dr. Lion Cruz, received antibiotic, management by primary care physician Bradycardia secondary to medication, has history of underlying sinus node dysfunction that was worsening with medication, his baseline heart rate is between 40 and 50. Patient has been asymptomatic with this heart rate as an outpatient. Continue to monitor at this time. 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 Medical therapy was recommended. Continue to monitor Resistant hypertension, receiving multiple medication, labile blood pressure, difficult to achieve adequate control while on prednisone. I will restart Bystolic at 5mg daily, continue to monitor. Renal ultrasound was done in November 2016 showing normal bilateral kidneys with no significance disease in the renal arteries, continue to monitor Peripheral edema, continue to monitor at this time Melanoma stage III D, status post excision from the left arm and left axillary dissection, received immunotherapy, no radiation, followed by Dr. King Lipid profile was done in November 2017 showing total cholesterol 177, HDL 48, LDL 115, triglyceride 80, continue to monitor. Osteoarthritis, maintained on Celebrex which could be affecting negatively the blood pressure Extensive surgical history, in November 2015 underwent repair of bowel due to complication of hernia surgery and removal of infected mesh surgery. History of laminectomy, neck surgery for spinal stenosis, radical prostatectomy , carpal tunnel surgery. Mild bilateral carotid stenosis, ultrasound was done in December 2017, continue to monitor. Clinical Quality Measures DVT/VTE Risk/Contraindication: Risk Factor Score Per Nursin RFS Level Per Nursing on Admit: 3=High TIERRA MARIN MD Apr 03, 2018 09:14
[2018-04-03 09:18] LABS: BASOPHILS # (AUTO) 0.1 10^3/uL (0.0-0.1); BASOPHILS % (AUTO) 1 % (0-10); EOSINOPHILS % (AUTO) 0 % (0-10); HEMATOCRIT 34 % (40-54); HEMOGLOBIN 10.8 G/DL (13.3-17.7); LYMPHOCYTES # (AUTO) 2.1 X 10^3 (1.0-4.0); LYMPHOCYTES % (AUTO) 29 % (12-44); MEAN CORPUSCULAR HEMOGLOBIN 28 PG (25-34); MEAN CORPUSCULAR HGB CONC 32 G/DL (32-36); MEAN CORPUSCULAR VOLUME 88 FL (80-99); MEAN PLATELET VOLUME 9.4 FL (7.4-10.4); MONOCYTES # (AUTO) 0.5 X 10^3 (0.0-1.0); MONOCYTES % (AUTO) 7 % (0-12); NEUTROPHILS # (AUTO) 4.5 X 10^3 (1.8-7.8); NEUTROPHILS % (AUTO) 63 % (42-75); PLATELET COUNT 322 10^3/uL (130-400); RED BLOOD COUNT 3.81 10^6/uL (4.35-5.85); RED CELL DISTRIBUTION WIDTH 15.4 % (10.0-14.5); WHITE BLOOD COUNT 7.2 10^3/uL (4.3-11.0)
[2018-04-03] MEDS: NEBIVOLOL 5 MG TAB (BYSTOLIC) PO SCH (10:23)
--- NOTE | 2018-04-03 11:20 | Speech Therapy Daily Note ---
Speech Daily Progress Note Subjective Date Seen by Provider: Apr 03, 2018 Time Seen by Provider: 10:00 Pt up in chair. Pain Numeric Pain Scale: 0-No Pain Objective Memory - Picture recall 20 minutes later was 90%. Same method used in verbalizing what he sees in the picture to help facilitate recall. Ordering words in sequential order was 75% accurate. Communication Comprehension: 7 Expression: 7 Social Cognition Social Interaction: 7 Problem Solvin Memory: 3 Speech Short Term Goals Short Term Goals Short Term Goals Pt will complete various verbal/auditory memory activities with at least 75% and min assist. Time Frame-ST week Comprehension: 7 Expression: 7 Social Interaction: 5 Problem Solvin Memory: 4 Speech Skilled Nursing Goals Skilled Nursing Goals Pt will demonstrate functional memory skills for maximum independence in the home setting. Time Frame: 2 weeks Comprehension: 7 Expression: 7 Social Interaction: 7 Problem Solvin Memory: 5 Speech-Plan Patient/Family Goals Patient/Family Goals: to return home Treatment Plan Speech Therapy Treatment Plan: Continue Plan of Care pt participates with minimal effort. Treatment Duration: Mar 31, 2018 Frequency: 5 times per week Estimated Hrs Per Day: .5 hour per day Rehab Potential: Fair Pt/Family Agrees to Plan: Yes Safety Risks/Education Teaching Recipient: Patient Teaching Methods: Discussion Response to Teaching: Verbalize Understanding Time Speech Therapy Time In: 10:00 Speech Therapy Time Out: 10:30 Total Billed Time: 30 Billed Treatment Time 1, MATEO Sweeney Apr 03, 2018 11:20
--- NOTE | 2018-04-03 11:55 | Physical Therapy Daily Note ---
PT Daily Note-Current Subjective pt in recliner pre tx, agrees to PT, no pain to report Appearance pt in recliner post tx w/ phone, call light, tray, all needs met Mental Status Patient Orientation: Person, Place, Time Transfers Functional [place] Measure 0=Not Assessed/NA 4=Minimal Assistance 1=Total Assistance 5=Supervision or Setup 2=Maximal Assistance 6=Modified [place] 3=Moderate Assistance 7=Complete IndependenceIRFPAI Quality Coding Scale 6 Independent with activity with or without an assistive device 5 Patient requires set up or clean up by helper. Patient completes activity by themselves 4 Supervision or touching assist (CGA). [place] provide cues , steadying assist 3 The helper provides less than half the effort to complete the activity 2 The helper provides more than half the effort to complete the activity 1 Dependent. The helper does all the effort to complete an activity 7 Patient refused to complete or attempt activity 9 The patient did not perform the activity before the current illness or injury 88 Not attempted due to Medical conditions or safety concerns Transfers (B, C, W/C) (FIM): 6 Scootin Rollin Supine to/from Sit: 6 Sit to/from Stand: 6 mod I for transfers, pt has difficulty getting trail leg into bed, but is able to do so by rolling over to other side Weight Bearing Right Lower Extremity: Right Full Weight Bearing Left Lower Extremity: Left Full Weight Bearing Gait Training Does the Patient Walk?: Yes Gait (FIM): 6 Distance: 350',150' Gait Level of Assist: 6 Gait Assistive Device: FWW pt ambulates to/from gym using FWW w/ SBA, shuffled steps but gradually increases stride length and speed Stair Training Stair Training: Handrails/: 2 handrails Stairs (FIM): 5 #of Steps: 12 Stairs: Pattern: Step to Level of Assist: 5 pt ascends/descends 2x12 steps using 2 handrails w/ step-to pattern, SBA Exercises Seated Therapy Exercises: Sit to stand Seated Reps: 10 supine<->sit x1 to assess bed mobility Tinetti Balance Assessment NuStep Minutes: 15 NuStep Workload: 5 Treatments gait training, functional strengthening, stair training, endurance training Assessment Current Status: Fair Progress improving balance, number of stairs, and endurance PT Short Term Goals Short Term Goals Time Frame: Mar 30, 2018 Gait (FIM): 3 Distance (FIM): 3=150 ft Gait Distance Comment: 150' Gait Level of Assist: 4 Gait Assistive Device: FWW PT Penitentiary Goals Penitentiary Goals PT Information Scientist Goals Time Frame: Apr 06, 2018 Transfers (B,C,W/C) (FIM): 5 Sit to Lying (QC): 6 Lying-Sitting on Side/Bed(QC): 6 Sit to Stand (QC): 4 Rollin Roll Left to Right (QC): 6 Chair/Uey-ss-Cyynh Xfer(QC): 4 Car Transfer (QC): 4 Does the Patient Walk: Yes Gait (FIM): 5 Distance: 250' Walk 10 feet (QC): 4 Walk 10ft-Uneven Surface(QC): 4 Walk 50ft with 2 Turns (QC): 4 Walk 150 ft (QC): 4 Gait Level of Assist: 5 Gait Assistive Device: FWW Stairs (FIM): 2 # of Steps: 4 1 Step (curb) (QC): 4 4 Steps (QC): 4 Stairs Level Of Assist: 4 PT Plan Problem List Problem List: Activity Tolerance, Functional Strength, Safety, Balance, Gait, Transfer, Bed Mobility Treatment/Plan Treatment Plan: Continue Plan of Care Treatment Plan: Bed Mobility, Concurrent Therapy, Education, Functional Activity Abdulkadir, Functional Strength, Group Therapy, Gait, Safety, Therapeutic Exercise, Transfers Treatment Duration: Apr 13, 2018 Frequency: At least 5 of 7 days/Wk (IRF) Estimated Hrs Per Day: 1.5 hours per day Patient and/or Family Agrees t: Yes Safety Risks/Education Patient Education: Gait Training, Transfer Techniques, Steps, Correct Positioning, Safety Issues Teaching Recipient: Patient Teaching Methods: Demonstration, Discussion Response to Teaching: Reinforcement Needed Time/GCodes Time In: 1100 Time Out: 1200 Total Billed Treatment Time: 60 Total Billed Treatment 1 visit GT 15' EX 30' FA 15' GREGORIA TREVIÑO PT Apr 03, 2018 11:55
--- NOTE | 2018-04-03 15:30 | Physical Therapy Daily Note ---
PT Daily Note-Current Subjective pt in recliner pre tx, agrees to PT, no pain to report Appearance pt in recliner post tx, w/ phone, call light, tray, all needs met Mental Status Patient Orientation: Normal For Age Transfers Functional [place] Measure 0=Not Assessed/NA 4=Minimal Assistance 1=Total Assistance 5=Supervision or Setup 2=Maximal Assistance 6=Modified [place] 3=Moderate Assistance 7=Complete IndependenceIRFPAI Quality Coding Scale 6 Independent with activity with or without an assistive device 5 Patient requires set up or clean up by helper. Patient completes activity by themselves 4 Supervision or touching assist (CGA). [place] provide cues , steadying assist 3 The helper provides less than half the effort to complete the activity 2 The helper provides more than half the effort to complete the activity 1 Dependent. The helper does all the effort to complete an activity 7 Patient refused to complete or attempt activity 9 The patient did not perform the activity before the current illness or injury 88 Not attempted due to Medical conditions or safety concerns Transfers (B, C, W/C) (FIM): 6 Sit to/from Stand: 6 mod I for all transfers Weight Bearing Right Lower Extremity: Right Full Weight Bearing Left Lower Extremity: Left Full Weight Bearing Gait Training Does the Patient Walk?: Yes Gait (FIM): 5 Distance: 450'x2, 10'x3 Gait Level of Assist: 5 Gait Persons Needed: 1 Gait Assistive Device: FWW pt ambulates to/from courtyard outside w/ FWW, SBA, steady, no LOB pt ambulates 10' over uneven mulch outside x3 w/o use of AD, CGA, steady, no LOB Exercises Standing: Sit to Stand Standing Reps: 6 Assessment Current Status: Fair Progress increased gait distance and improved balance over community surfaces PT Short Term Goals Short Term Goals Time Frame: Mar 30, 2018 Gait (FIM): 3 Distance (FIM): 3=150 ft Gait Distance Comment: 150' Gait Level of Assist: 4 Gait Assistive Device: FWW PT [facility]ci Goals Fci Goals PT Fci Goals Time Frame: Apr 06, 2018 Transfers (B,C,W/C) (FIM): 5 Sit to Lying (QC): 6 Lying-Sitting on Side/Bed(QC): 6 Sit to Stand (QC): 4 Rollin Roll Left to Right (QC): 6 Chair/Iyy-ai-Cyycm Xfer(QC): 4 Car Transfer (QC): 4 Does the Patient Walk: Yes Gait (FIM): 5 Distance: 250' Walk 10 feet (QC): 4 Walk 10ft-Uneven Surface(QC): 4 Walk 50ft with 2 Turns (QC): 4 Walk 150 ft (QC): 4 Gait Level of Assist: 5 Gait Assistive Device: FWW Stairs (FIM): 2 # of Steps: 4 1 Step (curb) (QC): 4 4 Steps (QC): 4 Stairs Level Of Assist: 4 PT Plan Problem List Problem List: Activity Tolerance, Functional Strength, Safety, Balance, Gait, Transfer, Bed Mobility Treatment/Plan Treatment Plan: Continue Plan of Care Treatment Plan: Bed Mobility, Concurrent Therapy, Education, Functional Activity Abdulkadir, Functional Strength, Group Therapy, Gait, Safety, Therapeutic Exercise, Transfers Treatment Duration: Apr 13, 2018 Frequency: At least 5 of 7 days/Wk (IRF) Estimated Hrs Per Day: 1.5 hours per day Patient and/or Family Agrees t: Yes Safety Risks/Education Patient Education: Gait Training, Transfer Techniques, Correct Positioning, Safety Issues Teaching Recipient: Patient Teaching Methods: Demonstration, Discussion Response to Teaching: Reinforcement Needed Time/GCodes Time In: 1330 Time Out: 1400 Total Billed Treatment Time: 30 Total Billed Treatment 1 visit GT 30' KRUPA ACKERMAN PT Apr 03, 2018 15:30
[2018-04-03 17:33] VITALS: BP 106/59
--- NOTE | 2018-04-03 18:48 | PM & R (SOAP) Progress Note ---
Subjective This was a face to face visit with the patient. Date Seen by Provider: Apr 03, 2018 Time Seen by Provider: 18:15 Subjective/Events-last exam Patient was seen in his room this evening Patient Modified Independent for transfers Appreciate Cardiology note and orders Objective Physician Exam Last Set of Vital Signs Vital Signs Date Time Temp Pulse Resp B/P (MAP) Pulse Ox O2 Delivery O2 Flow Rate FiO2 04/03/18 17:33 98.6 44 18 106/59 (75) 97 Room Air Capillary Refill : I&O Intake and Output 04/03/18 00:00 Intake Total 1730 ml Output Total 1300 ml Balance 430 ml Intake Oral 1730 ml Output Urine Total 1300 ml # Voids 5 General: Alert, Oriented X3, Cooperative, No Acute Distress HEENT: Atraumatic, PERRLA, EOMI, Mucous Memb Moist/[place] Neck: Supple, No JVD Lungs: Clear to Auscultation Heart: Normal S1, Normal S2, Other (Bradycardia) Abdomen: Normal Bowel Sounds, Soft, No Tenderness Extremities: No Clubbing, No Cyanosis, Other (TRACE EDEMA) Skin: No Rashes Neuro: Normal Speech, Cranial Nerves 3-12 NL Psych/Mental Status: Mental Status NL, Mood NL Results Lab Data Laboratory Tests 04/03/18 09:10: White Blood Count 7.2, Red Blood Count 3.81L, Hemoglobin 10.8L, Hematocrit 34L, Mean Corpuscular Volume 88, Mean Corpuscular Hemoglobin 28, Mean Corpuscular Hemoglobin Concent 32, Red Cell Distribution Width 15.4H, Platelet Count 322, Mean Platelet Volume 9.4, Neutrophils (%) (Auto) 63, Lymphocytes (%) (Auto) 29, Monocytes (%) (Auto) 7, Eosinophils (%) (Auto) 0, Basophils (%) (Auto) 1, Neutrophils # (Auto) 4.5, Lymphocytes # (Auto) 2.1, Monocytes # (Auto) 0.5, Eosinophils # (Auto) 0.0, Basophils # (Auto) 0.1 Assessment/Plan Assessment and Plan 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
[2018-04-03] MEDS: lisINopril 20 MG (PRINIVIL) TABLET PO SCH (20:43)
[2018-04-04] MEDS: OMEGA 3 (FISH OIL) 1000 MG CAP PO SCH ×2 (06:10→17:03)
[2018-04-04 06:26] VITALS: BP 142/74
--- NOTE | 2018-04-04 07:51 | PM & R (SOAP) Progress Note ---
Subjective This was a face to face visit with the patient. Date Seen by Provider: Apr 04, 2018 Time Seen by Provider: 07:20 Subjective/Events-last exam Patient was seen in his room this AM Patient Modified Independent for transfers All set for discharge tomorrow Objective Physician Exam Last Set of Vital Signs Vital Signs Date Time Temp Pulse Resp B/P (MAP) Pulse Ox O2 Delivery O2 Flow Rate FiO2 04/04/18 06:26 99.7 61 18 142/74 (96) 97 Room Air Capillary Refill : I&O Intake and Output 04/04/18 00:00 Intake Total 1780 ml Output Total 850 ml Balance 930 ml Intake Oral 1780 ml Output Urine Total 850 ml # Voids 2 # Bowel Movements 1 General: Alert, Oriented X3, Cooperative, No Acute Distress HEENT: Atraumatic, PERRLA, EOMI, Mucous Memb Moist/[place] Neck: Supple, No JVD Lungs: Clear to Auscultation Heart: Normal S1, Normal S2, Other (Bradycardia) Abdomen: Normal Bowel Sounds, Soft, No Tenderness Extremities: No Clubbing, No Cyanosis, Other (TRACE EDEMA) Skin: No Rashes Neuro: Normal Speech, Cranial Nerves 3-12 NL Psych/Mental Status: Mental Status NL, Mood NL Results Lab Data Laboratory Tests 04/03/18 09:10: White Blood Count 7.2, Red Blood Count 3.81L, Hemoglobin 10.8L, Hematocrit 34L, Mean Corpuscular Volume 88, Mean Corpuscular Hemoglobin 28, Mean Corpuscular Hemoglobin Concent 32, Red Cell Distribution Width 15.4H, Platelet Count 322, Mean Platelet Volume 9.4, Neutrophils (%) (Auto) 63, Lymphocytes (%) (Auto) 29, Monocytes (%) (Auto) 7, Eosinophils (%) (Auto) 0, Basophils (%) (Auto) 1, Neutrophils # (Auto) 4.5, Lymphocytes # (Auto) 2.1, Monocytes # (Auto) 0.5, Eosinophils # (Auto) 0.0, Basophils # (Auto) 0.1 Assessment/Plan Assessment and Plan 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
[2018-04-04] MEDS: ASPIRIN E.C. 81 MG (ECOTRIN) TAB PO SCH (08:19)
[2018-04-04] MEDS: CELECOXIB 100 MG (CeleBREX) CAP PO SCH (08:19)
[2018-04-04] MEDS: NEBIVOLOL 5 MG TAB (BYSTOLIC) PO SCH ×2 (08:20→08:45)
[2018-04-04] MEDS: POLYETHYLENE GLYCOL 17 GM (MIRALAX) PACK PO SCH ×2 (08:20→20:42)
[2018-04-04] MEDS: LORATADINE (CLARITIN) 10 MG TAB PO SCH (08:20)
[2018-04-04] MEDS: FAMOTIDINE 20 MG (PEPCID) TABLET PO SCH ×2 (08:20→20:41)
[2018-04-04] MEDS: amLODIPine 10 MG (NORVASC) TAB PO SCH (08:20)
--- NOTE | 2018-04-04 08:40 | Occupational Ther Daily Note ---
OT Current Status-Daily Note Subjective Pt alert, sitting in recliner. No c/o pain. Pt agrees to therapy. Mental Status/Objective Patient Orientation: Person, Place, Time, Situation Functional [place] Measure 0=Not Assessed/NA 4=Minimal Assistance 1=Total Assistance 5=Supervision or Setup 2=Maximal Assistance 6=Modified [place] 3=Moderate Assistance 7=Complete [place] Attachments: IV ADL-Treatment Functional [place] Measure 0=Not Assessed/NA 4=Minimal Assistance 1=Total Assistance 5=Supervision or Setup 2=Maximal Assistance 6=Modified [place] 3=Moderate Assistance 7=Complete IndependenceIRFPAI Quality Coding Scale 6 Independent with activity with or without an assistive device 5 Patient requires set up or clean up by helper. Patient completes activity by themselves 4 Supervision or touching assist (CGA). [place] provide cues , steadying assist 3 The helper provides less than half the effort to complete the activity 2 The helper provides more than half the effort to complete the activity 1 Dependent. The helper does all the effort to complete an activity 7 Patient refused to complete or attempt activity 9 The patient did not perform the activity before the current illness or injury 88 Not attempted due to Medical conditions or safety concerns Grooming (FIM): 6 (Mod I, pt completes in standing in front of sink using FWW and counter for stability.) Oral Hygiene (QC): 6 Bathing (FIM): 6 (Mod I, pt completes using tub bench, hand held shower and grabbars for stability.) Bathing Location: L Arm, R Arm, L Upper Leg, R Upper Leg, L Lower Leg ( including foot), R Lower Leg (including foot), Chest, Abdomen, Buttocks, Perineal Area Upper Body (FIM): 6 (Pt transports and retrieves clothing using FWW for stability. Pt don/doff UE dressing in sitting position.) Upper Body Dressing (QC): 6 Lower Body Dressing (FIM): 6 (Pt retrieved and transports clothing using FWW for stability. Pt completes in sitting using AE to reach LE. Pt don/doffs socks and shoes using AE.) Lower Body Dressing (QC): 6 On/Off Footwear (QC): 6 Toileting (FIM): 7 (Pt completes in standing, pushing FWW to side and using back of toilet for stability.) Toileting Hygiene (QC): 6 Transfers (B, C, W/C) (FIM): 6 (Pt uses FWW for stability in sit to stand. ) Tub Transfer(FIM): 6 (Pt uses FWW, tub bench and grabbars for stability. Pt uses gait belt to wrap around legs and bring them over tub. ) Pt takes increased amount of time to complete ADLs. After therapy. Pt sitting in recliner with call light/phone within reach. All needs met in room. OT Short Term Goals Short Term Goals Time Frame: Mar 30, 2018 Lower Body Dressing(FIM): 4 Toilet/Commode Transfer(FIM): 5 Shower Transfer(FIM): 5 Comprehension(FIM): 7 Expression(FIM): 7 Social Interaction(FIM): 5 Problem Solving(FIM): 5 Memory(FIM): 4 Additional Short Term Goals: 1-Demonstrate ADL Tasks, 2-Verbalize Understanding , 3-ImproveStrength/Abdulkadir 1=Demonstrate adherence to instructed precautions during ADL tasks. 2=Patient will verbalize/demonstrate understanding of assistive devices/ modifications for ADL. 3=Patient will improve strength/tolerance for activity to enable patient to perform ADL's. OT [employer] Administrator Goals Long-Term Goals Time Frame: Apr 14, 2018 Eating (FIM): 7 (met) Eating (QC): 6 (met) Groomin (met) Oral Hygiene (QC): 6 (met) Bathing(FIM): 6 (met) Shower/Bathe Self (QC): 6 (met) Upper Body Dressing(FIM): 6 (met) Upper Body Dressing (QC): 6 (met) Lower Body Dressing(FIM): 6 (met) Lower Body Dressing (QC): 6 (met) On/Off Footwear (QC): 6 (met) Toileting(FIM): 6 (met) Toileting Hygiene (QC): 6 (met) Toilet/Commode Transfer(FIM): 6 (met) Toilet/Commode Transfer (QC): 6 (met) Shower Transfer(FIM): 6 (met) Comprehension(FIM): 7 (met) Expression (FIM): 7 Social Interaction(FIM): 7 Problem Solving(FIM): 5 Memory(FIM): 5 Additional Goals: 1-Demonstrate ADL Tasks, 2-Verbalize Understanding, 3- ImproveStrength/Abdulkadir 1=Demonstrate adherence to instructed precautions during ADL tasks. 2=Patient will verbalize/demonstrate understanding of assistive devices/ modifications for ADL. 3=Patient will improve strength/tolerance for activity to enable patient to perform ADL's. OT Education/Plan Problem List/Assessment Pt would benefit from skilled OT to increase his independence in basic self care to allow him to safely return home Discharge Recommendations Plan/Recommendations: Continue POC Treatment Plan/Plan of Care Patient would benefit from OT for education, treatment and training to promote independence in ADL's, mobility, safety and/or upper extremity function for ADL' s. Plan of Care: ADL Retraining, Functional Mobility, Group Exercise/Act as Ind ( education, exercise, memory, activity tolerance, functional activities, socialization) Treatment Duration: Apr 14, 2018 Frequency: At least 5 of 7 days/Wk (IRF) Estimated Hrs Per Day: 1.5 hours per day Agreement: Yes Rehab Potential: Fair Time/GCodes Start Time: 08:00 Stop Time: 09:00 Total Time Billed (hr/min): 60 Billed Treatment Time 1 visit- ADL 4 (60 min) KRUPA WEI Apr 04, 2018 08:40
--- NOTE | 2018-04-04 09:56 | Physical Therapy Daily Note ---
PT Daily Note-Current Subjective pt in recliner pre tx, agrees to PT, no pain to report Appearance pt in recliner post tx w/ phone, call light, tray, all needs met Mental Status Patient Orientation: Person, Place, Time Transfers Functional [place] Measure 0=Not Assessed/NA 4=Minimal Assistance 1=Total Assistance 5=Supervision or Setup 2=Maximal Assistance 6=Modified [place] 3=Moderate Assistance 7=Complete IndependenceIRFPAI Quality Coding Scale 6 Independent with activity with or without an assistive device 5 Patient requires set up or clean up by helper. Patient completes activity by themselves 4 Supervision or touching assist (CGA). [place] provide cues , steadying assist 3 The helper provides less than half the effort to complete the activity 2 The helper provides more than half the effort to complete the activity 1 Dependent. The helper does all the effort to complete an activity 7 Patient refused to complete or attempt activity 9 The patient did not perform the activity before the current illness or injury 88 Not attempted due to Medical conditions or safety concerns Transfers (B, C, W/C) (FIM): 6 Scootin Rollin Roll Left to Right (QC): 6 Supine to/from Sit: 7 Sit to/from Stand: 7 Sit to Lying (QC): 6 Sit to Stand (QC): 6 Chair/Ggq-[place] Xfer(QC): 6 Bed to/from Chair: 6 Car Transfer (QC): 6 independent or mod I w/ all transfers Weight Bearing Right Lower Extremity: Right Full Weight Bearing Left Lower Extremity: Left Full Weight Bearing Gait Training Does the Patient Walk?: Yes Gait (FIM): 6 Distance: 250',150'x2 Walk 10 feet (QC): 6 Walk 50 ft with 2 Turns(QC): 6 Walk 150 ft (QC): 6 Walking 10ft/uneven surface-QC: 6 Gait Level of Assist: 6 Gait Assistive Device: FWW pt ambulates to/from gym w/ FWW, mod I, gait is slow w/ short steps at first but gradually increases in speed and stride length Stair Training Stair Training: Handrails/: 2 handrails Stairs (FIM): 6 #of Steps: 12 1 Step (curb) (QC): 6 4 Steps (QC): 6 12 Steps (QC): 6 Stairs: Pattern: Step to Level of Assist: 6 pt ascends/descends 12 stairs mod I using 2 handrails w/ step-to pattern Balance Picking up an Object (QC): 6 (uses FWW for balance) Exercises Supine Ex: Knee to chest (w/ mongolian ball) Supine Reps: 10 Seated Therapy Exercises: Sit to stand, Long arc quads (5') Seated Reps: 10 NuStep Minutes: 15 NuStep Workload: 7 Treatments gait training, functional strengthening, stair training, endurance training Assessment Current Status: Fair Progress improved balance and endurance, increased independence w/ mobility PT Short Term Goals Short Term Goals Time Frame: Mar 30, 2018 Gait (FIM): 3 Distance (FIM): 3=150 ft Gait Distance Comment: 150' Gait Level of Assist: 4 Gait Assistive Device: FWW PT Geosciences Professor Goals Geosciences Professor Goals PT Geosciences Professor Goals Time Frame: Apr 06, 2018 Transfers (B,C,W/C) (FIM): 5 (met) Sit to Lying (QC): 6 (met) Lying-Sitting on Side/Bed(QC): 6 (met) Sit to Stand (QC): 4 (met) Rollin (met) Roll Left to Right (QC): 6 (met) Chair/Bud-fl-Wormr Xfer(QC): 4 (met) Car Transfer (QC): 4 (met) Does the Patient Walk: Yes Gait (FIM): 5 (met) Distance: 250' Walk 10 feet (QC): 4 (met) Walk 10ft-Uneven Surface(QC): 4 (met) Walk 50ft with 2 Turns (QC): 4 (met) Walk 150 ft (QC): 4 (met) Gait Level of Assist: 5 (met) Gait Assistive Device: FWW Stairs (FIM): 2 (met) # of Steps: 4 (met) 1 Step (curb) (QC): 4 (metmet) 4 Steps (QC): 4 (met) Stairs Level Of Assist: 4 (met) PT Plan Problem List Problem List: Activity Tolerance, Functional Strength, Safety, Balance, Gait, Transfer, Bed Mobility Treatment/Plan Treatment Plan: Continue Plan of Care Treatment Plan: Bed Mobility, Concurrent Therapy, Education, Functional Activity Abdulkadir, Functional Strength, Group Therapy, Gait, Safety, Therapeutic Exercise, Transfers Treatment Duration: Apr 13, 2018 Frequency: At least 5 of 7 days/Wk (IRF) Estimated Hrs Per Day: 1.5 hours per day Patient and/or Family Agrees t: Yes Safety Risks/Education Patient Education: Gait Training, Transfer Techniques, Steps, Correct Positioning, Safety Issues Teaching Recipient: Patient Teaching Methods: Demonstration, Discussion Response to Teaching: Verbalize Understanding, Return Demonstration Time/GCodes Time In: 0900 Time Out: 1000 Total Billed Treatment Time: 60 Total Billed Treatment 1 visit GT 15 FA 15' EX 30' GREGORIA TREVIÑO PT Apr 04, 2018 09:56
--- NOTE | 2018-04-04 10:03 | Cardiology Progress Note ---
Subjective Date Seen by Provider: Apr 04, 2018 Time Seen by Provider: 08:15 Subjective/Events-last exam Patient is up in chair, no new complaints, denies any chest pain, dizziness, or lightheadedness. Objective-Cardiology Exam Last Set of Vital Signs Vital Signs 04/04/18 06:26 Temp 99.7 Pulse 61 Resp 18 B/P (MAP) 142/74 (96) Pulse Ox 97 O2 Delivery Room Air Capillary Refill : I&O Intake and Output 04/04/18 00:00 Intake Total 1780 ml Output Total 850 ml Balance 930 ml Intake Oral 1780 ml Output Urine Total 850 ml # Voids 2 # Bowel Movements 1 General: Alert, Oriented X3, Cooperative, No Acute Distress HEENT: Atraumatic, PERRLA, EOMI, Mucous Memb Moist/[place] Neck: Supple, No JVD Lungs: Clear to Auscultation Heart: Normal S1, Normal S2, Other (Bradycardia) Abdomen: Normal Bowel Sounds, Soft, No Tenderness Extremities: No Clubbing, No Cyanosis, Other (TRACE EDEMA) Skin: No Rashes Neuro: Normal Speech, Cranial Nerves 3-12 NL Psych/Mental Status: Mental Status NL, Mood NL A/P-Cardiology Admission Diagnosis Spinal stenosis Generalized weakness Labile hypertension Coronary artery disease Sinus node dysfunction Assessment/Plan Generalized weakness and loss of energy. Receiving physical therapy, managed by Dr. 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 Improving. Followed by Dr. Seymour Pneumonia, received antibiotic, management by primary care physician Bradycardia secondary to medication, has history of underlying sinus node dysfunction that was worsening with medication, his baseline heart rate is between 40 and 50. Patient has been asymptomatic with this heart rate as an outpatient. Continue to monitor at this time. 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 Medical therapy was recommended. Continue to monitor Resistant hypertension, receiving multiple medication, labile blood pressure, difficult to achieve adequate control while on prednisone. Continue current medications and continue to monitor. Renal ultrasound was done in November 2016 showing normal bilateral kidneys with no significance disease in the renal arteries, continue to monitor Peripheral edema, continue to monitor at this time Melanoma stage III D, status post excision from the left arm and left axillary dissection, received immunotherapy, no radiation, followed by Dr. King Lipid profile was done in November 2017 showing total cholesterol 177, HDL 48, LDL 115, triglyceride 80, continue to monitor. Osteoarthritis, maintained on Celebrex which could be affecting negatively the blood pressure Extensive surgical history, in November 2015 underwent repair of bowel due to complication of hernia surgery and removal of infected mesh surgery. History of laminectomy, neck surgery for spinal stenosis, radical prostatectomy , carpal tunnel surgery. Mild bilateral carotid stenosis, ultrasound was done in December 2017, continue to monitor. Clinical Quality Measures DVT/VTE Risk/Contraindication: Risk Factor Score Per Nursin RFS Level Per Nursing on Admit: 3=High SKYLA HOLLIS Apr 04, 2018 10:03
--- NOTE | 2018-04-04 11:01 | Occupational Ther Daily Note ---
OT Current Status-Daily Note Subjective Pt alert, sitting in recliner. No c/o pain. Pt agrees to therapy. Mental Status/Objective Patient Orientation: Person, Place, Time, Situation Functional [place] Measure 0=Not Assessed/NA 4=Minimal Assistance 1=Total Assistance 5=Supervision or Setup 2=Maximal Assistance 6=Modified [place] 3=Moderate Assistance 7=Complete [place] Attachments: IV ADL-Treatment Functional [place] Measure 0=Not Assessed/NA 4=Minimal Assistance 1=Total Assistance 5=Supervision or Setup 2=Maximal Assistance 6=Modified [place] 3=Moderate Assistance 7=Complete IndependenceIRFPAI Quality Coding Scale 6 Independent with activity with or without an assistive device 5 Patient requires set up or clean up by helper. Patient completes activity by themselves 4 Supervision or touching assist (CGA). [place] provide cues , steadying assist 3 The helper provides less than half the effort to complete the activity 2 The helper provides more than half the effort to complete the activity 1 Dependent. The helper does all the effort to complete an activity 7 Patient refused to complete or attempt activity 9 The patient did not perform the activity before the current illness or injury 88 Not attempted due to Medical conditions or safety concerns Transfers (B, C, W/C) (FIM): 6 (Mod I, pt completes using FWW for stability. ) Other Treatment Pt ambulated to therapy gym using FWW for stability. Pt completed 3 step nuts and bolts task bilaterally with 1# wt attached increasing UE strength and fine motor skills needed for daily functional activity. Pt ambulated back to room using FWW for stability. Pt takes increased amount of time to complete task. After therapy, sitting in recliner with call light/phone within reach. All needs met in room. OT Short Term Goals Short Term Goals Time Frame: Mar 30, 2018 Lower Body Dressing(FIM): 4 Toilet/Commode Transfer(FIM): 5 Shower Transfer(FIM): 5 Comprehension(FIM): 7 Expression(FIM): 7 Social Interaction(FIM): 5 Problem Solving(FIM): 5 Memory(FIM): 4 Additional Short Term Goals: 1-Demonstrate ADL Tasks, 2-Verbalize Understanding , 3-ImproveStrength/Abdulkadir 1=Demonstrate adherence to instructed precautions during ADL tasks. 2=Patient will verbalize/demonstrate understanding of assistive devices/ modifications for ADL. 3=Patient will improve strength/tolerance for activity to enable patient to perform ADL's. OT Jail Goals Jail Goals Time Frame: Apr 14, 2018 Eating (FIM): 7 Eating (QC): 6 Groomin Oral Hygiene (QC): 6 Bathing(FIM): 6 Shower/Bathe Self (QC): 6 Upper Body Dressing(FIM): 6 Upper Body Dressing (QC): 6 Lower Body Dressing(FIM): 6 Lower Body Dressing (QC): 6 On/Off Footwear (QC): 6 Toileting(FIM): 6 Toileting Hygiene (QC): 6 Toilet/Commode Transfer(FIM): 6 Toilet/Commode Transfer (QC): 6 Shower Transfer(FIM): 6 Comprehension(FIM): 7 Expression (FIM): 7 Social Interaction(FIM): 7 Problem Solving(FIM): 5 Memory(FIM): 5 Additional Goals: 1-Demonstrate ADL Tasks, 2-Verbalize Understanding, 3- ImproveStrength/Abdulkadir 1=Demonstrate adherence to instructed precautions during ADL tasks. 2=Patient will verbalize/demonstrate understanding of assistive devices/ modifications for ADL. 3=Patient will improve strength/tolerance for activity to enable patient to perform ADL's. OT Education/Plan Problem List/Assessment Pt would benefit from skilled OT to increase his independence in basic self care to allow him to safely return home Discharge Recommendations Plan/Recommendations: Continue POC Treatment Plan/Plan of Care Patient would benefit from OT for education, treatment and training to promote independence in ADL's, mobility, safety and/or upper extremity function for ADL' s. Plan of Care: ADL Retraining, Functional Mobility, Group Exercise/Act as Ind ( education, exercise, memory, activity tolerance, functional activities, socialization) Treatment Duration: Apr 14, 2018 Frequency: At least 5 of 7 days/Wk (IRF) Estimated Hrs Per Day: 1.5 hours per day Agreement: Yes Rehab Potential: Fair Time/GCodes Start Time: 10:30 Stop Time: 11:00 Total Time Billed (hr/min): 30 Billed Treatment Time 1 visit- ADL 2 (30 min) KRUPA WEI Apr 04, 2018 11:01
--- NOTE | 2018-04-04 13:14 | Speech Therapy Daily Note ---
Speech Daily Progress Note Subjective Date Seen by Provider: Apr 04, 2018 Time Seen by Provider: 10:00 Pt in chair. Pleasant and cooperative. Pain Numeric Pain Scale: 0-No Pain Objective Memory- Picture recall after 20 mi accurate with no assist. Taught pt new activity with initial instruction. Performed the activity again and the pt required min assist to be able to complete. Assessment Assessment Current Status: Fair Progress Treatment Plan Discontinue ST, Goals Met Communication Comprehension: 7 Expression: 7 Social Cognition Social Interaction: 7 Problem Solvin Memory: 5 Speech Short Term Goals Short Term Goals Short Term Goals Pt will complete various verbal/auditory memory activities with at least 75% and min assist. Time Frame-ST week Comprehension: 7 Expression: 7 Social Interaction: 5 Problem Solvin Memory: 4 Speech Geophysics Professor Goals Geophysics Professor Goals Pt will demonstrate functional memory skills for maximum independence in the home setting. Time Frame: 2 weeks Comprehension: 7 (met) Expression: 7 Social Interaction: 7 Problem Solvin Memory: 5 Speech-Plan Patient/Family Goals Patient/Family Goals: to return home. Treatment Plan Speech Therapy Treatment Plan: Discontinue ST, Goals Met Pt to be dc'd from skilled ST due to goals being met. Pt to be discharged to home on 04/05/2018. Treatment Duration: Mar 31, 2018 Frequency: Modified Program (IRF) (0) Estimated Hrs Per Day: Other (0) Rehab Potential: Fair Pt/Family Agrees to Plan: Yes Safety Risks/Education Teaching Recipient: Patient Teaching Methods: Discussion Response to Teaching: Verbalize Understanding Time Speech Therapy Time In: 10:00 Speech Therapy Time Out: 10:30 Total Billed Time: 30 Billed Treatment Time 1, SLMATEO Craig Apr 04, 2018 13:14
--- NOTE | 2018-04-04 14:06 | Physical Therapy Daily Note ---
PT Daily Note-Current Subjective pt in recliner pre tx, agrees to PT, no pain to report Appearance pt in recliner post tx w/ phone, call light, tray, all needs met Mental Status Patient Orientation: Person, Place, Time Transfers Functional [place] Measure 0=Not Assessed/NA 4=Minimal Assistance 1=Total Assistance 5=Supervision or Setup 2=Maximal Assistance 6=Modified [place] 3=Moderate Assistance 7=Complete IndependenceIRFPAI Quality Coding Scale 6 Independent with activity with or without an assistive device 5 Patient requires set up or clean up by helper. Patient completes activity by themselves 4 Supervision or touching assist (CGA). [place] provide cues , steadying assist 3 The helper provides less than half the effort to complete the activity 2 The helper provides more than half the effort to complete the activity 1 Dependent. The helper does all the effort to complete an activity 7 Patient refused to complete or attempt activity 9 The patient did not perform the activity before the current illness or injury 88 Not attempted due to Medical conditions or safety concerns Transfers (B, C, W/C) (FIM): 7 Sit to/from Stand: 7 independent sit<->stand Weight Bearing Right Lower Extremity: Right Full Weight Bearing Left Lower Extremity: Left Full Weight Bearing Gait Training Does the Patient Walk?: Yes Gait (FIM): 6 Distance: 300'x2, 200' Gait Level of Assist: 6 Gait Assistive Device: FWW pt ambulates to/from front door of hospital outside using FWW, mod I GT over community surfaces including uneven sidewalk, 4 stairs, 20' incline, using FWW, SBA Treatments gait training Assessment Current Status: Fair Progress improved ambulation over community surfaces PT Short Term Goals Short Term Goals Time Frame: Mar 30, 2018 Gait (FIM): 3 Distance (FIM): 3=150 ft Gait Distance Comment: 150' Gait Level of Assist: 4 Gait Assistive Device: FWW PT Longterm Goals Longterm Goals PT Longterm Goals Time Frame: Apr 06, 2018 Transfers (B,C,W/C) (FIM): 5 (met) Sit to Lying (QC): 6 (met) Lying-Sitting on Side/Bed(QC): 6 (met) Sit to Stand (QC): 4 (met) Rollin (met) Roll Left to Right (QC): 6 (met) Chair/Kky-km-Uxyof Xfer(QC): 4 (met) Car Transfer (QC): 4 (met) Does the Patient Walk: Yes Gait (FIM): 5 (met) Distance: 250' Walk 10 feet (QC): 4 (met) Walk 10ft-Uneven Surface(QC): 4 (met) Walk 50ft with 2 Turns (QC): 4 (met) Walk 150 ft (QC): 4 (met) Gait Level of Assist: 5 (met) Gait Assistive Device: FWW Stairs (FIM): 2 (met) # of Steps: 4 (met) 1 Step (curb) (QC): 4 (metmet) 4 Steps (QC): 4 (met) Stairs Level Of Assist: 4 (met) PT Plan Problem List Problem List: Activity Tolerance, Functional Strength, Safety, Balance, Gait, Transfer, Bed Mobility Treatment/Plan Treatment Plan: Continue Plan of Care Treatment Plan: Bed Mobility, Concurrent Therapy, Education, Functional Activity Abdulkadir, Functional Strength, Group Therapy, Gait, Safety, Therapeutic Exercise, Transfers Treatment Duration: Apr 13, 2018 Frequency: At least 5 of 7 days/Wk (IRF) Estimated Hrs Per Day: 1.5 hours per day Patient and/or Family Agrees t: Yes Safety Risks/Education Patient Education: Gait Training, Transfer Techniques, Steps, Correct Positioning, Safety Issues Teaching Recipient: Patient Teaching Methods: Demonstration, Discussion Response to Teaching: Reinforcement Needed Time/GCodes Time In: 1300 Time Out: 1330 Total Billed Treatment Time: 30 Total Billed Treatment 1 visit GT 30' ANATOLIY LERNER PT Apr 04, 2018 14:06
--- NOTE | 2018-04-04 14:53 | Cardiology Progress Note ---
Subjective Date Seen by Provider: Apr 04, 2018 Time Seen by Provider: 14:52 Subjective/Events-last exam Patient is sitting in a chair, feeling better no new complaint. Denied any chest pain or shortness of Review of Systems General: No Chills, No Night Sweats, No Fatigue, No Malaise, No Appetite, No Other HEENT: No Head Aches, No Visual Changes, No Eye Pain, No Ear Pain, No Dysphasia , No Sinus Congestion, No Post Nasal Drip, No Sore Throat, No Other Pulmonary: No Dyspnea, No Cough, No Pleuritic Chest Pain, No Other Cardiovascular: No: Chest Pain, Palpitations, Orthopnea, Paroxysmal Noc. Dyspnea, Edema, Lt Headedness, Other Objective-Cardiology Exam Last Set of Vital Signs Vital Signs 04/04/18 04/04/18 06:26 09:00 Temp 99.7 Pulse 61 Resp 18 B/P (MAP) 142/74 (96) Pulse Ox 97 O2 Delivery Room Air Capillary Refill : I&O Intake and Output 04/04/18 00:00 Intake Total 1780 ml Output Total 850 ml Balance 930 ml Intake Oral 1780 ml Output Urine Total 850 ml # Voids 2 # Bowel Movements 1 General: Alert, Oriented X3, Cooperative, No Acute Distress HEENT: Atraumatic, PERRLA, EOMI, Mucous Memb Moist/[place] Neck: Supple, No JVD Lungs: Clear to Auscultation Heart: Normal S1, Normal S2, Other (Bradycardia) Abdomen: Normal Bowel Sounds, Soft, No Tenderness Extremities: No Clubbing, No Cyanosis, Other (TRACE EDEMA) Skin: No Rashes Neuro: Normal Speech, Cranial Nerves 3-12 NL Psych/Mental Status: Mental Status NL, Mood NL A/P-Cardiology Admission Diagnosis Spinal stenosis Generalized weakness Labile hypertension Coronary artery disease Sinus node dysfunction Assessment/Plan Generalized weakness and loss of energy. Receiving physical therapy, managed by Dr. 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 Improving. Followed by Dr. Seymour Pneumonia, received antibiotic, management by primary care physician Bradycardia secondary to medication, has history of underlying sinus node dysfunction that was worsening with medication, his baseline heart rate is between 40 and 50. Patient has been asymptomatic with this heart rate as an outpatient. Continue to monitor at this time. 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 Medical therapy was recommended. Continue to monitor Resistant hypertension, receiving multiple medication, labile blood pressure, difficult to achieve adequate control while on prednisone. Continue current medications and continue to monitor. Renal ultrasound was done in November 2016 showing normal bilateral kidneys with no significance disease in the renal arteries, continue to monitor Peripheral edema, continue to monitor at this time Melanoma stage III D, status post excision from the left arm and left axillary dissection, received immunotherapy, no radiation, followed by Dr. King Lipid profile was done in November 2017 showing total cholesterol 177, HDL 48, LDL 115, triglyceride 80, continue to monitor. Osteoarthritis, maintained on Celebrex which could be affecting negatively the blood pressure Extensive surgical history, in November 2015 underwent repair of bowel due to complication of hernia surgery and removal of infected mesh surgery. History of laminectomy, neck surgery for spinal stenosis, radical prostatectomy , carpal tunnel surgery. Mild bilateral carotid stenosis, ultrasound was done in December 2017, continue to monitor. Clinical Quality Measures DVT/VTE Risk/Contraindication: Risk Factor Score Per Nursin RFS Level Per Nursing on Admit: 3=High TIERRA MARIN MD Apr 04, 2018 14:52
[2018-04-04] MEDS ORDERED: NEBI5TAB8 PO (15:29)
[2018-04-04] MEDS ORDERED: FAMO20TA5 PO (15:29)
[2018-04-04 18:00] VITALS: BP 118/84
[2018-04-04] MEDS: lisINopril 20 MG (PRINIVIL) TABLET PO SCH (20:41)
[2018-04-05 06:00] VITALS: BP 137/66
[2018-04-05] MEDS: OMEGA 3 (FISH OIL) 1000 MG CAP PO SCH (06:20)
--- NOTE | 2018-04-05 08:00 | PM & R (SOAP) Progress Note ---
Subjective This was a face to face visit with the patient. Date Seen by Provider: Apr 05, 2018 Time Seen by Provider: 07:35 Subjective/Events-last exam Patient was seen in his room this AM All set for discharge today Appreciate Cardiology note. Date Identified: Apr 05, 2018 Time Identified: 07:30 Medication Intervention: Discharge meds reviewed Objective Physician Exam Last Set of Vital Signs Vital Signs Date Time Temp Pulse Resp B/P (MAP) Pulse Ox O2 Delivery O2 Flow Rate FiO2 04/05/18 06:00 99.7 59 16 137/66 (89) 96 Room Air Capillary Refill : I&O Intake and Output 04/04/18 23:59 Intake Total 1010 ml Output Total 1575 ml Balance -565 ml Intake Oral 1010 ml Output Urine Total 1575 ml # Voids 2 # Bowel Movements 1 General: Alert, Oriented X3, Cooperative, No Acute Distress HEENT: Atraumatic, PERRLA, EOMI, Mucous Memb Moist/[place] Neck: Supple, No JVD Lungs: Clear to Auscultation Heart: Normal S1, Normal S2, Other (Bradycardia) Abdomen: Normal Bowel Sounds, Soft, No Tenderness Extremities: No Clubbing, No Cyanosis, Other (TRACE EDEMA) Skin: No Rashes Neuro: Normal Speech, Cranial Nerves 3-12 NL Psych/Mental Status: Mental Status NL, Mood NL Results Lab Data Laboratory Tests 04/03/18 09:10: White Blood Count 7.2, Red Blood Count 3.81L, Hemoglobin 10.8L, Hematocrit 34L, Mean Corpuscular Volume 88, Mean Corpuscular Hemoglobin 28, Mean Corpuscular Hemoglobin Concent 32, Red Cell Distribution Width 15.4H, Platelet Count 322, Mean Platelet Volume 9.4, Neutrophils (%) (Auto) 63, Lymphocytes (%) (Auto) 29, Monocytes (%) (Auto) 7, Eosinophils (%) (Auto) 0, Basophils (%) (Auto) 1, Neutrophils # (Auto) 4.5, Lymphocytes # (Auto) 2.1, Monocytes # (Auto) 0.5, Eosinophils # (Auto) 0.0, Basophils # (Auto) 0.1 Assessment/Plan Assessment and Plan Home today with HHC and Family See orders F/U with PCP and DR CUBA-Strength both LES much improved (1) Right leg weakness Status: Acute Co-Morbidities that are continuing to impact the rehab process: (include details ) DANNA LAWS MD Apr 05, 2018 08:00
--- NOTE | 2018-04-05 08:25 | Cardiology Progress Note ---
Subjective Date Seen by Provider: Apr 05, 2018 Time Seen by Provider: 08:21 Subjective/Events-last exam Patient sitting up in chair, denies any chest pain or increased dyspnea. Currently on 1L 02 via CO. Reports he is being discharged later today. Review of Systems General: No Night Sweats; Fatigue, Malaise HEENT: No Visual Changes, No Dysphasia, No Sore Throat Pulmonary: Dyspnea; No Cough, No Pleuritic Chest Pain Cardiovascular: No: Chest Pain, Palpitations, Paroxysmal Noc. Dyspnea, Edema Gastrointestinal: No: Nausea, Vomiting, Abdominal Pain, Constipation Genitourinary: No Dysuria, No Frequency Musculoskeletal: No: neck pain, back pain Neurological: No: Weakness, Numbness, Change in speech, Confusion Objective-Cardiology Exam Last Set of Vital Signs Vital Signs 04/05/18 06:00 Temp 99.7 Pulse 59 Resp 16 B/P (MAP) 137/66 (89) Pulse Ox 96 O2 Delivery Room Air Capillary Refill : I&O Intake and Output 04/05/18 00:00 Intake Total 1010 ml Output Total 1575 ml Balance -565 ml Intake Oral 1010 ml Output Urine Total 1575 ml # Voids 2 # Bowel Movements 1 General: Alert, Oriented X3, Cooperative, No Acute Distress HEENT: Atraumatic, PERRLA, EOMI, Mucous Memb Moist/[place] Neck: Supple, No JVD Lungs: Clear to Auscultation Heart: Normal S1, Normal S2, Other (Bradycardia) Abdomen: Normal Bowel Sounds, Soft, No Tenderness Extremities: No Clubbing, No Cyanosis, Other (TRACE EDEMA) Skin: No Rashes Neuro: Normal Speech, Cranial Nerves 3-12 NL Psych/Mental Status: Mental Status NL, Mood NL A/P-Cardiology Admission Diagnosis Spinal stenosis Generalized weakness Labile hypertension Coronary artery disease Sinus node dysfunction Assessment/Plan Generalized weakness and loss of energy. Receiving physical therapy, managed by Dr. 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 Improving. Followed by Dr. Lion Cruz, received antibiotic, management by primary care physician Bradycardia secondary to medication, has history of underlying sinus node dysfunction that was worsening with medication, his baseline heart rate is between 40 and 50. Patient has been asymptomatic with this heart rate as an outpatient. Continue to monitor at this time. 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 Medical therapy was recommended. Continue to monitor Resistant hypertension, receiving multiple medication, labile blood pressure, difficult to achieve adequate control while on prednisone. Continue current medications and continue to monitor. Renal ultrasound was done in November 2016 showing normal bilateral kidneys with no significance disease in the renal arteries, continue to monitor Peripheral edema, continue to monitor at this time Melanoma stage III D, status post excision from the left arm and left axillary dissection, received immunotherapy, no radiation, followed by Dr. King Lipid profile was done in November 2017 showing total cholesterol 177, HDL 48, LDL 115, triglyceride 80, continue to monitor. Osteoarthritis, maintained on Celebrex which could be affecting negatively the blood pressure Extensive surgical history, in November 2015 underwent repair of bowel due to complication of hernia surgery and removal of infected mesh surgery. History of laminectomy, neck surgery for spinal stenosis, radical prostatectomy , carpal tunnel surgery. Mild bilateral carotid stenosis, ultrasound was done in December 2017, continue to monitor. Ok for discharge from cardiology standpoint. Follow up in 2-[address] Blas 's office. Clinical Quality Measures DVT/VTE Risk/Contraindication: Risk Factor Score Per Nursin RFS Level Per Nursing on Admit: 3=High SKYLA HOLLIS Apr 05, 2018 08:25
--- NOTE | 2018-04-05 08:38 | Therapy Team Discharge Summary ---
Therapy Discharge Summary Discharge Recommendations Date of Discharge Therapy D/C Recommendations: Home w/ Family Support Occupational Therapy Decreased Activ Tolerance, Decreased UE Strength, Dependent Transfers, Impaired Bed Mobility, Impaired Self-Care Skills Speech-Language Pathology Pt was admitted with a dx of pneumonia. Initial assessment indicated short- term memory deficits. It was felt by this therapist that most of it was due to pt's lack of motivation to do his best. Pt participated in treatment but did not put forth much effort. He completed various auditory/visual memory activities with around 80-90% accuracy using various strategies suggested by POLLS OR SURVEYS INTERVIEWER. Pt to be discharged to home today and is dc'd from skilled services. PT Sales Representative [employer] Goals Shelter Goals PT Sales Representative [employer] Goals Time Frame: Apr 06, 2018 Transfers (B,C,W/C) (FIM): 5 (met) Roll Left to Right (QC): 6 (met) Sit to Lying (QC): 6 (met) Lying-Sitting on Side/Bed(QC): 6 (met) Sit to Stand (QC): 4 (met) Chair/Fot-qj-Bmmpy Xfer(QC): 4 (met) Car Transfer (QC): 4 (met) Does the Patient Walk: Yes Gait (FIM): 5 (met) Distance: 250' Walk 10 feet (QC): 4 (met) Walk 10ft-Uneven Surface(QC): 4 (met) Walk 50ft with 2 Turns (QC): 4 (met) Walk 150 ft (QC): 4 (met) Gait Level of Assist: 5 (met) Gait Assistive Device: FWW Stairs (FIM): 2 (met) # of Steps: 4 (met) 1 Step (curb) (QC): 4 (metmet) 4 Steps (QC): 4 (met) Stairs Level Of Assist: 4 (met) OT Sales Representative [employer] Goals Shelter Goals Time Frame: Apr 14, 2018 Eating (FIM): 7 (met) Eating (QC): 6 (met) Oral Hygiene (QC): 6 (met) Grooming(FIM): 6 (met) Bathing(FIM): 6 (met) Shower/Bathe Self (QC): 6 (met) Upper Body Dressing(FIM): 6 (met) Upper Body Dressing (QC): 6 (met) Lower Body Dressing(FIM): 6 (met) Lower Body Dressing (QC): 6 (met) On/Off Footwear (QC): 6 (met) Toileting(FIM): 6 (met) Toileting Hygiene (QC): 6 (met) Toilet/Commode Transfer(FIM): 6 (met) Toilet/Commode Transfer (QC): 6 (met) Shower Transfer(FIM): 6 (met) Comprehension(FIM): 7 (met) Expression (FIM): 7 Social Interaction(FIM): 7 Problem Solving(FIM): 5 Memory(FIM): 5 Additional Goals: 1-Demonstrate ADL Tasks, 2-Verbalize Understanding, 3- ImproveStrength/Abdulkadir 1=Demonstrate adherence to instructed precautions during ADL tasks. 2=Patient will verbalize/demonstrate understanding of assistive devices/ modifications for ADL. 3=Patient will improve strength/tolerance for activity to enable patient to perform ADL's. Speech Sales Representative [employer] Goals Sales Representative [employer] Goals Pt will demonstrate functional memory skills for maximum independence in the home setting. Met 04/05/2018 Time Frame: 2 weeks Comprehension: 7 (met) Expression: 7 Social Interaction: 7 Problem Solvin Memory: 5 MATEO JAEGER Apr 05, 2018 08:38
[2018-04-05] MEDS: FAMOTIDINE 20 MG (PEPCID) TABLET PO SCH (09:06)
[2018-04-05] MEDS: CELECOXIB 100 MG (CeleBREX) CAP PO SCH (09:06)
[2018-04-05] MEDS: POLYETHYLENE GLYCOL 17 GM (MIRALAX) PACK PO SCH (09:07)
[2018-04-05] MEDS: LORATADINE (CLARITIN) 10 MG TAB PO SCH (09:07)
[2018-04-05] MEDS: ASPIRIN E.C. 81 MG (ECOTRIN) TAB PO SCH (09:07)
[2018-04-05 09:09] VITALS: BP 127/63
[2018-04-05] MEDS: amLODIPine 10 MG (NORVASC) TAB PO SCH (09:11)
[2018-04-05] MEDS: NEBIVOLOL 5 MG TAB (BYSTOLIC) PO SCH (09:11)
--- NOTE | 2018-04-05 09:50 | Therapy Team Discharge Summary ---
Therapy Discharge Summary Discharge Recommendations Date of Discharge Therapy D/C Recommendations: Home w/ Family Support Physical Therapy Pt admitted to inpatient rehab facility on 03/23/18 for pneumonia. Upon admission , pt transferred supine<->sit modA w/ assistance getting both legs into/out of bed and sitting up, sit<->stand Josiah, chair<->bed SBA, car transfer modA w/ assistance getting both legs into/out of car. Pt was able to ambulate 80' w/ FWW and CGA (including 10' over uneven surface and 50' w/ 2 turns of 90 degrees) . Pt was unable to perform 1 step due to inadequate hip flexion strength. At this time, pt is mod I w/ bed mobility and transfers (including car transfer). Pt is able to walk 400' mod I w/ FWW (including 10' over uneven surface and 50' w/ 2 turns of 90 degrees), and ascend/descend 12 stairs mod I using 2 handrails w/ step-to pattern. 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 Occupational Therapy Decreased Activ Tolerance, Decreased UE Strength, Dependent Transfers, Impaired Bed Mobility, Impaired Self-Care Skills PT Intermediate Goals Intermediate Goals PT Intermediate Goals Time Frame: Apr 06, 2018 Transfers (B,C,W/C) (FIM): 5 (met) Roll Left to Right (QC): 6 (met) Sit to Lying (QC): 6 (met) Lying-Sitting on Side/Bed(QC): 6 (met) Sit to Stand (QC): 4 (met) Chair/Wox-du-Alwzp Xfer(QC): 4 (met) Car Transfer (QC): 4 (met) Does the Patient Walk: Yes Gait (FIM): 5 (met) Distance: 250' Walk 10 feet (QC): 4 (met) Walk 10ft-Uneven Surface(QC): 4 (met) Walk 50ft with 2 Turns (QC): 4 (met) Walk 150 ft (QC): 4 (met) Gait Level of Assist: 5 (met) Gait Assistive Device: FWW Stairs (FIM): 2 (met) # of Steps: 4 (met) 1 Step (curb) (QC): 4 (metmet) 4 Steps (QC): 4 (met) Stairs Level Of Assist: 4 (met) OT Testing Analyst Goals Testing Analyst Goals Time Frame: Apr 14, 2018 Eating (FIM): 7 (met) Eating (QC): 6 (met) Oral Hygiene (QC): 6 (met) Grooming(FIM): 6 (met) Bathing(FIM): 6 (met) Shower/Bathe Self (QC): 6 (met) Upper Body Dressing(FIM): 6 (met) Upper Body Dressing (QC): 6 (met) Lower Body Dressing(FIM): 6 (met) Lower Body Dressing (QC): 6 (met) On/Off Footwear (QC): 6 (met) Toileting(FIM): 6 (met) Toileting Hygiene (QC): 6 (met) Toilet/Commode Transfer(FIM): 6 (met) Toilet/Commode Transfer (QC): 6 (met) Shower Transfer(FIM): 6 (met) Comprehension(FIM): 7 (met) Expression (FIM): 7 Social Interaction(FIM): 7 Problem Solving(FIM): 5 Memory(FIM): 5 Additional Goals: 1-Demonstrate ADL Tasks, 2-Verbalize Understanding, 3- ImproveStrength/Abdulkadir 1=Demonstrate adherence to instructed precautions during ADL tasks. 2=Patient will verbalize/demonstrate understanding of assistive devices/ modifications for ADL. 3=Patient will improve strength/tolerance for activity to enable patient to perform ADL's. Speech Intermediate Goals Testing Analyst Goals Pt will demonstrate functional memory skills for maximum independence in the home setting. Met 04/05/2018 Time Frame: 2 weeks Comprehension: 7 (met) Expression: 7 Social Interaction: 7 Problem Solvin Memory: 5 GREGORIA TREVIÑO PT Apr 05, 2018 09:50
--- NOTE | 2018-04-05 11:52 | Therapy Team Discharge Summary ---
Therapy Discharge Summary Discharge Recommendations Date of Discharge Therapy D/C Recommendations: Home w/ Family Support Occupational Therapy Pt was seen for skilled OT to increase his independence in basic ADLs to allow him to safely return home after admission for pneumonia. On admission he was independent with eating, needed setup for upper body dressing, needed SBA for grooming, bathing, CGA for toileting/toilet transfers and shower transfers and mod assist lower body dressing. By discharge he was independent with eating and mod I for all other ADLs. No continued therapy needed. Equipment used included pick up man, sock aid, long shoe horn, long handled sponge, arms on toilet, grab bars, shower chair,hand held shower, FWW. See tx plan for goals met. Decreased Activ Tolerance, Decreased UE Strength, Dependent Transfers, Impaired Bed Mobility, Impaired Self-Care Skills PT Care Home Goals Care Home Goals PT Care Home Goals Time Frame: Apr 06, 2018 Transfers (B,C,W/C) (FIM): 5 (met) Roll Left to Right (QC): 6 (met) Sit to Lying (QC): 6 (met) Lying-Sitting on Side/Bed(QC): 6 (met) Sit to Stand (QC): 4 (met) Chair/Ziy-di-Rhvya Xfer(QC): 4 (met) Car Transfer (QC): 4 (met) Does the Patient Walk: Yes Gait (FIM): 5 (met) Distance: 250' Walk 10 feet (QC): 4 (met) Walk 10ft-Uneven Surface(QC): 4 (met) Walk 50ft with 2 Turns (QC): 4 (met) Walk 150 ft (QC): 4 (met) Gait Level of Assist: 5 (met) Gait Assistive Device: FWW Stairs (FIM): 2 (met) # of Steps: 4 (met) 1 Step (curb) (QC): 4 (metmet) 4 Steps (QC): 4 (met) Stairs Level Of Assist: 4 (met) OT Car Carder Goals Care Home Goals Time Frame: Apr 14, 2018 Eating (FIM): 7 (met) Eating (QC): 6 (met) Oral Hygiene (QC): 6 (met) Grooming(FIM): 6 (met) Bathing(FIM): 6 (met) Shower/Bathe Self (QC): 6 (met) Upper Body Dressing(FIM): 6 (met) Upper Body Dressing (QC): 6 (met) Lower Body Dressing(FIM): 6 (met) Lower Body Dressing (QC): 6 (met) On/Off Footwear (QC): 6 (met) Toileting(FIM): 6 (met) Toileting Hygiene (QC): 6 (met) Toilet/Commode Transfer(FIM): 6 (met) Toilet/Commode Transfer (QC): 6 (met) Shower Transfer(FIM): 6 (met) Comprehension(FIM): 7 (met) Expression (FIM): 7 Social Interaction(FIM): 7 Problem Solving(FIM): 5 Memory(FIM): 5 Additional Goals: 1-Demonstrate ADL Tasks, 2-Verbalize Understanding, 3- ImproveStrength/Abdulkadir 1=Demonstrate adherence to instructed precautions during ADL tasks. 2=Patient will verbalize/demonstrate understanding of assistive devices/ modifications for ADL. 3=Patient will improve strength/tolerance for activity to enable patient to perform ADL's. Speech Car Carder Goals Care Home Goals Pt will demonstrate functional memory skills for maximum independence in the home setting. Met 04/05/2018 Time Frame: 2 weeks Comprehension: 7 (met) Expression: 7 Social Interaction: 7 Problem Solvin Memory: 5 KWAN CASILLAS OT Apr 05, 2018 11:52
[2018-04-05 13:47] VITALS: BP 127/63
== END 2018-04-05 11:15 | disposition home health service (06) | DRG 546 ==
PROVIDERS: ADMIT Physical Medicine & Rehabilitation; ATTEND Physical Medicine & Rehabilitation
DX: M35.9 Systemic involvement of connective tissue, unspecified (principal); I77.6 Arteritis, unspecified; C49.12 Malignant neoplasm of connective and soft tissue of left upper limb, including shoulder; M47.896 Other spondylosis, lumbar region; I10 Essential (primary) hypertension; D64.9 Anemia, unspecified; I25.10 Atherosclerotic heart disease of native coronary artery without angina pectoris; I65.23 Occlusion and stenosis of bilateral carotid arteries; I49.5 Sick sinus syndrome; T45.1X5A Adverse effect of antineoplastic and immunosuppressive drugs, initial encounter; Z23 Encounter for immunization
CPT/HCPCS: 36415; 85025; 90686

== ENCOUNTER → 2018-04-25 | Outpatient (CLI) | payer MEDICARE, OTHER ==
[~2018-04-25] MED LIST changes: +FAMO20TA5 PO; +NEBI5TAB8 PO
--- NOTE | 2018-04-25 13:17 | Diagnostic Imaging Report ---
CLINICAL INDICATION: Patient with no chest complaints. Followup pneumonia. EXAM: Chest x-ray, PA and lateral views. COMPARISON: Chest x-ray dated 03/19/2018. FINDINGS: There is interval improved aeration of both lungs with residual of the right perihilar infiltrate. Lungs are now clear. There is no pleural effusion or pneumothorax. Pulmonary vasculature and cardiac silhouette are within normal limits. Severely hypertrophic spurs are again seen throughout the thoracic spine. Partially visualized posterior fusion hardware is seen. Surgical clips are again seen in the left axillary region. Baxtlm-O-Mhff overlying the right chest with tip in the distal superior vena cava. Anterior and posterior cervical fusion hardware is partially visualized. IMPRESSION: Interval improved aeration of the right perihilar region with currently no radiographic evidence of acute cardiopulmonary process. Dictated by: Dictated on workstation # [id number]
== END ==
LOC: RAD 09:21
PROVIDERS: ATTEND Internal Medicine Hematology & Oncology
DX: J18.9 Pneumonia, unspecified organism (principal); Z95.828 Presence of other vascular implants and grafts; Z98.1 Arthrodesis status
CPT/HCPCS: 71046

== ENCOUNTER → 2018-05-18 | Outpatient (CLI) | payer MEDICARE, OTHER ==
--- NOTE | 2018-05-18 15:59 | Diagnostic Imaging Report ---
PROCEDURE: US Abdomen, limited. TECHNIQUE: Multiple real-time grayscale images were obtained over the abdomen in various projections. INDICATION: Pain in the right groin. FINDINGS: Sonographic interrogation of the right groin was performed. There are lymph nodes in the right groin, the largest approximately 1.7 cm. No other abnormality is seen. No focal hernia is identified. No fluid collection is seen. IMPRESSION: Unremarkable right groin ultrasound. Dictated by: Dictated on workstation # [id number]
== END ==
LOC: RAD 14:26
PROVIDERS: ATTEND Nurse Practitioner
DX: R10.31 Right lower quadrant pain (principal); Z98.890 Other specified postprocedural states
CPT/HCPCS: 76705

== ENCOUNTER 2018-05-19 14:13 | Emergency (ER) | payer MEDICARE, OTHER ==
[~2018-05-19] VITALS: Ht 175.3 cm; Wt 84.4 kg
--- OUTSIDE RECORDS SUMMARY | 2018-05-19 14:22 | XMS REPORT | Continuity of Care Document ---
Author Author [facility] Organization [facility] Address Unknown Phone Unavailable Allergies Active Description Code Type Severity Reaction Onset Reported/Identified Relationship to Patient Clinical Status Yes NKANo Known Allergies NKA Miscellaneous Allergy Mild N/A 03/12/2006 Yes No Known Drug Allergies [id number] Drug Allergy Unknown N/A 11/09/2017 Medications There is no data. Problems Date Dx Coded Attending Type Code Diagnosis Diagnosed By AURE JONES MD, Ot 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, I AURE JONES MD, Ot 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 GAMMOPATHY AURE JONES MD, Ot I10 ESSENTIAL (PRIMARY) HYPERTENSION AURE JONES MD, Ot I25.10 ATHSCL HEART DISEASE OF [place] CORONARY AURE JONES MD, Ot I49.5 SICK SINUS SYNDROME AURE JONES MD Ot M19.91 PRIMARY OSTEOARTHRITIS, UNSPECIFIED SITE AURE JONES MD Ot Z51.11 ENCOUNTER FOR ANTINEOPLASTIC CHEMOTHERAP AURE JONES MD Ot Z79.82 [facility] (CURRENT) USE OF ASPIRIN AURE JONES MD Ot Z79.899 OTHER [facility] (CURRENT) DRUG THERAPY AURE JONES MD Ot Z87.891 PERSONAL HISTORY OF NICOTINE DEPENDENCE 06/02/1649 AURE JONES MD, Ot 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, I 06/02/1649 AURE JONES MD, Ot 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 GAMMOPATHY 06/02/1649 AURE JONES MD Ot I10 ESSENTIAL (PRIMARY) HYPERTENSION 06/02/1649 AURE JONES MD Ot I25.10 ATHSCL HEART DISEASE OF [place] CORONARY 06/02/1649 AURE JONES MD Ot I49.5 SICK SINUS SYNDROME 06/02/1649 AURE JONES MD, Ot M19.91 PRIMARY OSTEOARTHRITIS, UNSPECIFIED SITE 06/02/1649 AURE JONES MD Ot Z79.82 [facility] (CURRENT) USE OF ASPIRIN 06/02/1649 AURE JONES MD Ot Z79.899 OTHER [facility] (CURRENT) DRUG THERAPY 06/02/1649 AURE JONES MD [...] Ot V58.69 OTH MED,LT, CURRENT USE 04/10/2013 KATELYNN SALAS MD Ot 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 04/10/2013 KATELYNN SALAS MD Ot 401.9 HYPERTENSION NOS 04/10/2013 JOSUE JIMENEZ, KATELYNN Christopher Ot 716.90 ARTHROPATHY NOS-UNSPEC 04/10/2013 JOSUE JIMENEZ, KATELYNN Christopher Ot 722.90 DISC DIS NEC/NOS-UNSPEC 04/10/2013 JOSUE JIMENEZ, KATELYNN Christopher Ot V58.69 OTH MED,LT,CURRENT USE 09/30/2013 JOSUE JIMENEZ, KATELYNN Christopher Ot 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 09/30/2013 JOSUE JIMENEZ, KATELYNN Christopher Ot 401.9 HYPERTENSION NOS 09/30/2013 JOSUE JIMENEZ, KATELYNN Christopher Ot 716.90 ARTHROPATHY NOS-UNSPEC 09/30/2013 JOSUE JIMENEZ, KATELYNN Christopher Ot 722.90 DISC DIS NEC/NOS-UNSPEC 09/30/2013 JOSUE JIMENEZ, KATELYNN Christopher Ot V58.69 OTH MED,LT,CURRENT USE 03/24/2014 JOSUE JIMENEZ, KATELYNN Christopher Ot 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 03/24/2014 JOSUE JIMENEZ, KATELYNN Christopher Ot 401.9 HYPERTENSION NOS 03/24/2014 JOSUE JIMENEZ, KATELYNN Christopher Ot 716.90 ARTHROPATHY NOS-UNSPEC 03/24/2014 JOSUE JIMENEZ, KATELYNN Christopher Ot 722.90 DISC DIS NEC/NOS-UNSPEC 03/24/2014 JOSUE JIMENEZ, KATELYNN Christopher Ot V58.69 OTH MED,LT,CURRENT USE 07/24/2014 JOSUE JIMENEZ, KATELYNN Christopher [...] Christopher Ot 273.1 07/26/2014 JOSUE JIMENEZ, KATELYNN Ashwin Ot 401.9 07/26/2014 JOSUE JIMENEZ, KATELYNN Ashwin Ot 716.90 07/26/2014 JOSUE JIMENEZ, KATELYNN Ashwin Ot 722.90 07/26/2014 JOSUE JIMENEZ, KATELYNN Ashwin Ot V58.69 08/28/2014 JOSUE JIMENEZ, KATELYNN Ashwin Ot 273.1 08/28/2014 JOSUE JIMENEZ, KATELYNN Ashwin Ot 401.9 08/28/2014 JOSUE JIMENEZ, KATELYNN Ashwin Ot 716.90 08/28/2014 JOSUE JIMENEZ, KATELYNN Ashwin Ot 722.90 08/28/2014 JOSUE JIMENEZ, KATELYNN Ashwin Ot V58.69 10/02/2014 JOSUE JIMENEZ, KATELYNN Ashwin Ot 273.1 10/02/2014 JOSUE JIMENEZ, KATELYNN Ashwin Ot 401.9 10/02/2014 JOSUE JIMENEZ, KATELYNN Ashwin Ot 716.90 10/02/2014 JOSUE JIMENEZ, KATELYNN Ashwin Ot 722.90 10/02/2014 JOSUE JIMENEZ, KATELYNN Ashwin Ot V58.69 10/22/2014 JOSUE JIMENEZ, KATELYNN Christopher Ot 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 10/22/2014 JOSUE JIMENEZ, KATELYNN Christopher Ot 401.9 HYPERTENSION NOS 10/22/2014 JOSUE JIMENEZ, KATELYNN Ashwin Ot 716.90 ARTHROPATHY NOS-UNSPEC 10/22/2014 JOSUE JIMENEZ, KATELYNN Ashwin Ot 722.90 DISC DIS NEC/NOS-UNSPEC 10/22/2014 JOSUE JIMENEZ, KATELYNN Ashwin Ot V58.69 OTH MED,LT,CURRENT USE 04/09/2015 Ot [...] JIMENEZ, KATELYNN Christopher Ot 401.9 04/09/2015 JOSUE IJMENEZ, KATELYNN Ashwin Ot 716.90 04/09/2015 JOSUE JIMENEZ, KATELYNN Christopher Ot 722.90 04/09/2015 JOSUE JIMENEZ, KATELYNN Christopher Ot V58.69 05/23/2015 JOSUE JIMENEZ, KATELYNN Christopher Ot 273.1 05/23/2015 JOSUE JIMENEZ, KATELYNN Christopher Ot 401.9 05/23/2015 JOSUE JIMENEZ, KATELYNN Christopher Ot 716.90 05/23/2015 JOSUE [...] KATELYNN Christopher Ot I10 06/19/2015 JOSUE JIMENEZ, KATELYNN Christopher Ot M12.9 06/19/2015 JOSUE JIMENEZ, KATELYNN Christopher Ot M51.9 06/19/2015 JOSUE JIMENEZ, KATELYNN Christopher Ot Z79.899 07/08/2015 JOSUE JIMENEZ, KATELYNN Christopher Ot 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 GAMMOPATHY 07/08/2015 JOSUE JIMENEZ, KATELYNN Christopher Ot I10 ESSENTIAL (PRIMARY) HYPERTENSION 07/08/2015 JOSUE JIMENEZ, KATELYNN Christopher Ot M12.9 ARTHROPATHY, UNSPECIFIED 07/08/2015 JOSUE JIMENEZ, KATELYNN Christopher Ot M51.9 UNSP THORACIC, THORACOLUM AND LUMBOSACR 07/08/2015 JOSUE JIMENEZ, KATELYNN Christopher Ot Z79.899 OTHER [facility] (CURRENT) DRUG THERAPY 09/24/2015 JOSUE JIMENEZ, KATELYNN [...] KATELYNN Christopher Ot Z79.899 10/16/2015 JYOTHI NEWELL MD Ot K40.90 UNIL INGUINAL HERNIA, W/O OBST OR GANGR, 10/17/2015 JYOTHI NEWELL MD Ot K40.90 UNIL INGUINAL HERNIA, W/O OBST OR GANGR, 10/21/2015 JYOTHI NEWELL MD Ot E87.6 HYPOKALEMIA 10/21/2015 JYOTHI NEWELL MD Ot G89.18 OTHER ACUTE POSTPROCEDURAL PAIN 10/21/2015 JYOTHI NEWELL MD Ot I10 ESSENTIAL (PRIMARY) HYPERTENSION 10/21/2015 JYOTHI NEWELL MD Ot J18.9 PNEUMONIA, UNSPECIFIED ORGANISM 10/21/2015 JYOTHI NEWELL MD Ot J95.89 OTH POSTPROC COMPLICATIONS AND DISORDERS 10/21/2015 JYOTHI NEWELL MD, Ot J98.11 ATELECTASIS 10/21/2015 JYOTHI NEWELL MD, Ot K56.69 OTHER INTESTINAL OBSTRUCTION 10/21/2015 JYOTHI NEWELL MD Ot 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 10/21/2015 JYOTHI NEWELL MD, Ot N48.89 OTHER SPECIFIED DISORDERS OF PENIS 10/21/2015 KIDO MD, TAKAAKI Ot N50.8 OTHER SPECIFIED DISORDERS OF MALE GENITA 10/21/2015 REECE JIMENEZ, JYOTHI Ot Z87.891 PERSONAL HISTORY OF NICOTINE DEPENDENCE 10/21/2015 REECE JIMENEZ, JYOTHI Ot 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 [...] SURGERY MUSCULOSKELETAL S 10/21/2015 JOSUE JIMENEZ, KATELYNN Christopher Ot 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 GAMMOPATHY 10/21/2015 JOSUE JIMENEZ, KATELYNN Christopher Ot I10 ESSENTIAL (PRIMARY) HYPERTENSION 10/21/2015 KATELYNN SALAS MD Ot M12.9 ARTHROPATHY, UNSPECIFIED 10/21/2015 KATELYNN SALAS MD Ot M51.9 UNSP THORACIC, THORACOLUM AND LUMBOSACR 10/21/2015 JOSUE JIMENEZ, KATELYNN Christopher Ot Z79.899 OTHER WET PRESS TENDER (CURRENT) DRUG THERAPY 10/22/2015 DANAN LAWS MD Ot E87.6 HYPOKALEMIA 10/22/2015 DANNA [...] MYELOPATHY OR RADICULOPA 10/23/2015 DANNA LAWS MD E Ot R33.9 RETENTION OF URINE, UNSPECIFIED 10/23/2015 DANNA LAWS MD E Ot Z48.89 ENCOUNTER FOR OTHER SPECIFIED SURGICAL A 10/23/2015 DANNA LAWS MD E Ot Z87.891 PERSONAL HISTORY OF NICOTINE DEPENDENCE 10/24/2015 KATELYNN SALAS MD Ot 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 GAMMOPATHY 10/24/2015 KATELYNN SALAS MD Ot I10 ESSENTIAL (PRIMARY) HYPERTENSION 10/24/2015 KATELYNN SALAS MD Ot M12.9 ARTHROPATHY, UNSPECIFIED 10/24/2015 KATELYNN SALAS MD Ot M51.9 UNSP THORACIC, THORACOLUM AND LUMBOSACR 10/24/2015 KATELYNN SALAS MD Ot Z79.899 OTHER WET PRESS TENDER (CURRENT) DRUG THERAPY 10/25/2015 DANNA LAWS MD Ot E87.6 HYPOKALEMIA 10/25/2015 DANNA LAWS MD Ot I10 ESSENTIAL (PRIMARY) HYPERTENSION 10/25/2015 DANNA LAWS MD Ot J18.9 PNEUMONIA, UNSPECIFIED ORGANISM 10/25/2015 DANNA LAWS MD E Ot 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 RADICULOPA 10/25/2015 DANNA LASW MD E Ot R33.9 RETENTION OF URINE, UNSPECIFIED 10/25/2015 DANNA LAWS MD E Ot Z48.89 ENCOUNTER FOR OTHER SPECIFIED SURGICAL A 10/25/2015 DANNA LAWS MD Ot Z87.891 PERSONAL HISTORY OF NICOTINE DEPENDENCE 10/26/2015 DANNA LAWS MD Ot E87.6 HYPOKALEMIA 10/26/2015 DANNA LAWS MD E Ot I10 ESSENTIAL (PRIMARY) HYPERTENSION 10/26/2015 DANNA LAWS MD Ot J18.9 PNEUMONIA, UNSPECIFIED ORGANISM 10/26/2015 DANNA LAWS MD Ot 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 RADICULOPA 10/26/2015 DANNA LAWS MD E Ot R33.9 RETENTION OF URINE, UNSPECIFIED 10/26/2015 DANNA LAWS MD E Ot Z48.89 ENCOUNTER FOR OTHER SPECIFIED SURGICAL A 10/26/2015 DANNA LAWS MD E Ot Z87.891 PERSONAL HISTORY OF NICOTINE DEPENDENCE 10/26/2015 DANNA LAWS MD Ot E87.6 HYPOKALEMIA 10/26/2015 DANNA LAWS MD E Ot I10 ESSENTIAL (PRIMARY) HYPERTENSION 10/26/2015 DANNA LAWS MD E Ot J18.9 PNEUMONIA, UNSPECIFIED ORGANISM 10/26/2015 DANNA LAWS MD Ot 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 RADICULOPA 10/26/2015 DANNA LAWS MD Ot R33.9 RETENTION OF URINE, UNSPECIFIED 10/26/2015 DANNA LAWS MD E Ot Z48.89 ENCOUNTER FOR OTHER SPECIFIED SURGICAL A 10/26/2015 DANNA LAWS MD E Ot Z87.891 PERSONAL HISTORY OF NICOTINE DEPENDENCE 10/27/2015 DANNA LAWS MD E Ot E87.6 HYPOKALEMIA 10/27/2015 DANNA LAWS MD E Ot I10 ESSENTIAL (PRIMARY) HYPERTENSION 10/27/2015 DANNA LAWS MD E Ot J18.9 PNEUMONIA, UNSPECIFIED ORGANISM 10/27/2015 DANNA LAWS MD E Ot 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 RADICULOPA 10/27/2015 DANNA LAWS MD Ot R33.9 RETENTION OF URINE, UNSPECIFIED 10/27/2015 DANNA LAWS MD Ot Z48.89 ENCOUNTER FOR OTHER SPECIFIED SURGICAL A 10/27/2015 DANNA LAWS MD Ot Z87.891 PERSONAL HISTORY OF NICOTINE DEPENDENCE 10/28/2015 DANNA LAWS MD Ot E87.6 HYPOKALEMIA 10/28/2015 DANNA LAWS MD Ot I10 ESSENTIAL (PRIMARY) HYPERTENSION 10/28/2015 DANNA LAWS MD Ot J18.9 PNEUMONIA, UNSPECIFIED ORGANISM 10/28/2015 DANNA LAWS MD Ot 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 RADICULOPA 10/28/2015 DANNA LAWS MD Ot R33.9 RETENTION OF URINE, UNSPECIFIED 10/28/2015 DANNA LAWS MD Ot Z48.89 ENCOUNTER FOR OTHER SPECIFIED SURGICAL A 10/28/2015 DANNA LAWS MD Ot Z87.891 PERSONAL HISTORY OF NICOTINE DEPENDENCE 10/28/2015 DANNA LAWS MD Ot E87.6 HYPOKALEMIA 10/28/2015 DANNA LAWS MD Ot I10 ESSENTIAL (PRIMARY) HYPERTENSION 10/28/2015 DANNA [...] HISTORY OF NICOTINE DEPENDENCE 11/05/2015 KATELYNN SALAS MD Ot 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 GAMMOPATHY 11/05/2015 KATELYNN SALAS MD Ot I10 ESSENTIAL (PRIMARY) HYPERTENSION 11/05/2015 KATELYNN SALAS MD Ot M12.9 ARTHROPATHY, UNSPECIFIED 11/05/2015 KATELYNN SALAS MD Ot M51.9 UNSP THORACIC, THORACOLUM AND LUMBOSACR 11/05/2015 JOSUE JIMENEZ KATELYNN Ashwin Ot Z79.899 OTHER WET PRESS TENDER (CURRENT) DRUG THERAPY 12/10/2015 FRANCISCO LUNA MD Ot N39.0 URINARY TRACT INFECTION, SITE NOT SPECIF 12/23/2015 KATELYNN SALAS MD Ot 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 GAMMOPATHY 12/23/2015 KATELYNN SALAS MD Ot I10 ESSENTIAL (PRIMARY) HYPERTENSION 12/23/2015 KATELYNN SALAS MD Ot M12.9 ARTHROPATHY, UNSPECIFIED 12/23/2015 KATELYNN SALAS MD Ot M51.9 UNSP THORACIC, THORACOLUM AND LUMBOSACR 12/23/2015 KATELYNN SALAS MD Ot Z79.899 OTHER [facility] (CURRENT) DRUG THERAPY 03/24/2016 AURE JONES MD, Ot 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 GAMMOPATHY 03/24/2016 AURE JONES MD Ot I10 ESSENTIAL (PRIMARY) HYPERTENSION 03/24/2016 AURE JONES MD Ot M12.9 ARTHROPATHY, UNSPECIFIED 03/24/2016 AURE JONES MD Ot M51.9 UNSP THORACIC, THORACOLUM AND LUMBOSACR 03/24/2016 AURE JONES MD Ot Z79.899 OTHER [facility] (CURRENT) DRUG THERAPY 06/10/2016 Ot 356.9 IDIO [...] V58.78 AFTERCARE POST SURGERY MUSCULOSKELETAL S 06/10/2016 FRANCISCO LUNA MD Ot N39.0 URINARY TRACT INFECTION, SITE NOT SPECIF 06/10/2016 KAREN MD, LOONEY Ot 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 GAMMOPATHY 06/10/2016 AURE JONES MD Ot I10 ESSENTIAL (PRIMARY) HYPERTENSION 06/10/2016 AURE JONES MD Ot M12.9 ARTHROPATHY, UNSPECIFIED 06/10/2016 AURE JONES MD Ot M51.9 UNSP THORACIC, THORACOLUM AND LUMBOSACR 06/10/2016 AURE JONES MD Ot Z79.899 OTHER [facility] (CURRENT) DRUG THERAPY 06/10/2016 TERRY HENRY MD, Ot I10 ESSENTIAL (PRIMARY) HYPERTENSION 06/10/2016 TERRY HENRY MD Ot J06.9 ACUTE UPPER RESPIRATORY INFECTION, UNSPE 06/10/2016 TERRY HENRY MD Ot R07.89 OTHER CHEST PAIN 06/10/2016 TERRY HENRY MD, Ot Z79.899 OTHER [facility] (CURRENT) DRUG THERAPY 06/11/2016 TERRY HENRY MD, Ot I10 ESSENTIAL (PRIMARY) HYPERTENSION 06/11/2016 TERRY HENRY MD Ot J06.9 ACUTE UPPER RESPIRATORY INFECTION, UNSPE 06/11/2016 TERRY HENRY MD Ot R07.89 OTHER CHEST PAIN 06/11/2016 TERRY HENRY MD, Ot Z79.899 OTHER [facility] (CURRENT) DRUG THERAPY 11/11/2016 TIERRA MARIN MD Ot I10 ESSENTIAL (PRIMARY) HYPERTENSION 11/15/2016 TIERRA MARIN MD Ot I10 ESSENTIAL (PRIMARY) HYPERTENSION 11/16/2016 TIERRA MARIN MD Ot I10 ESSENTIAL (PRIMARY) HYPERTENSION 11/16/2016 TIERRA MARIN MD Ot I10 ESSENTIAL (PRIMARY) HYPERTENSION 11/16/2016 TIERRA MARIN MD Ot I10 ESSENTIAL (PRIMARY) HYPERTENSION 11/16/2016 TIERRA MARIN MD Ot I10 ESSENTIAL (PRIMARY) HYPERTENSION 11/22/2016 Ot 268.9 VITAMIN D DEFICIENCY NOS 11/22/2016 Ot 255.10 HYPERALDOSTERONISM, UNSPECIFIED 11/22/2016 Ot 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 11/22/2016 Ot V45.4 ARTHRODESIS STATUS 11/22/2016 Ot V58.78 AFTERCARE POST SURGERY MUSCULOSKELETAL S 11/22/2016 JEREMY JIMENEZ, FRANCISCO Christopher Ot N39.0 URINARY TRACT INFECTION, SITE NOT SPECIF 11/22/2016 AURE JONES MD Ot 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 GAMMOPATHY 11/22/2016 AURE JONES MD Ot I10 ESSENTIAL (PRIMARY) HYPERTENSION 11/22/2016 AURE JONES MD Ot M12.9 ARTHROPATHY, UNSPECIFIED 11/22/2016 AURE JONES MD Ot M51.9 UNSP THORACIC, THORACOLUM AND LUMBOSACR 11/22/2016 AURE JONES MD Ot Z79.899 OTHER WET PRESS TENDER (CURRENT) DRUG THERAPY 11/22/2016 TIERRA MARIN MD Ot G89.29 OTHER CHRONIC PAIN 11/22/2016 TIERRA MARIN MD Ot I10 ESSENTIAL (PRIMARY) HYPERTENSION 11/22/2016 TIERRA [...] Ot 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 GAMMOPATHY 04/26/2017 AURE JONES MD, Ot I10 ESSENTIAL (PRIMARY) HYPERTENSION 04/26/2017 AURE JONES MD Ot M12.9 ARTHROPATHY, UNSPECIFIED 04/26/2017 AURE JONES MD Ot M51.9 UNSP THORACIC, THORACOLUM AND LUMBOSACR 04/26/2017 AURE JONES MD Ot Z79.899 OTHER [facility] (CURRENT) DRUG THERAPY 04/26/2017 TIERRA MARIN MD Ot G89.29 OTHER CHRONIC PAIN 04/26/2017 TIERRA MARIN MD Ot I10 ESSENTIAL (PRIMARY) HYPERTENSION 04/26/2017 TIERRA MARIN MD Ot Z87.891 PERSONAL HISTORY OF NICOTINE DEPENDENCE 04/26/2017 TIERRA MARIN MD Ot G89.29 OTHER CHRONIC PAIN 04/26/2017 TIERRA MARIN MD, Ot I10 ESSENTIAL (PRIMARY) HYPERTENSION 04/26/2017 TIERRA MARIN MD Ot Z87.891 PERSONAL HISTORY OF NICOTINE DEPENDENCE 05/02/2017 Ot 268.9 VITAMIN D DEFICIENCY NOS 05/04/2017 TIERRA MARIN MD Ot E78.5 HYPERLIPIDEMIA, UNSPECIFIED 05/04/2017 TIERRA MARIN MD, Ot I10 ESSENTIAL (PRIMARY) HYPERTENSION 05/04/2017 TIERRA MARIN MD Ot I25.10 ATHSCL HEART DISEASE OF [place] CORONARY 05/04/2017 TIERRA MARIN MD Ot I49.5 SICK SINUS SYNDROME 05/04/2017 TIERRA MARIN MD Ot 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[place] 05/04/2017 TIERRA MARIN MD Ot M19.91 PRIMARY OSTEOARTHRITIS, UNSPECIFIED SITE 05/04/2017 TIERRA MARIN MD Ot R60.0 LOCALIZED EDEMA 05/04/2017 TIERRA MARIN MD Ot Z79.899 OTHER [facility] (CURRENT) DRUG THERAPY 05/18/2017 TIERRA MARIN MD [...] MD Ot I10 ESSENTIAL (PRIMARY) HYPERTENSION 05/25/2017 TIERRA MARIN MD Ot R60.9 EDEMA, UNSPECIFIED 05/25/2017 TIERRA MARIN MD Ot Z87.891 PERSONAL HISTORY OF NICOTINE DEPENDENCE 09/22/2017 AURE JONES MD, Ot 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 GAMMOPATHY 09/22/2017 AURE JONES MD, Ot I10 ESSENTIAL (PRIMARY) HYPERTENSION 09/22/2017 AURE JONES MD, Ot M12.9 ARTHROPATHY, UNSPECIFIED 09/22/2017 AURE JONES MD Ot M51.9 UNSP THORACIC, THORACOLUM AND LUMBOSACR 09/22/2017 AURE JONES MD Ot Z79.899 OTHER [facility] (CURRENT) DRUG THERAPY 09/28/2017 AURE JONES MD Ot 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, I 09/28/2017 AURE JONES MD, Ot 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 GAMMOPATHY 09/28/2017 AURE JONES MD Ot I10 ESSENTIAL (PRIMARY) HYPERTENSION 09/28/2017 AURE JONES MD Ot I25.10 ATHSCL HEART DISEASE OF [place] CORONARY 09/28/2017 AURE JONES MD Ot I49.5 SICK SINUS SYNDROME 09/28/2017 AURE JONES MD Ot M19.91 PRIMARY OSTEOARTHRITIS, UNSPECIFIED SITE 09/28/2017 AURE JONES MD Ot Z79.82 [facility] (CURRENT) USE OF ASPIRIN 09/28/2017 AURE JONES MD Ot Z79.899 OTHER WET PRESS TENDER (CURRENT) DRUG THERAPY 09/28/2017 AURE JONES MD [...] MD Ot I25.10 ATHSCL HEART DISEASE OF [place] CORONARY 09/30/2017 AURE JONES MD Ot I49.5 SICK SINUS SYNDROME 09/30/2017 AURE JONES MD Ot M19.91 PRIMARY OSTEOARTHRITIS, UNSPECIFIED SITE 09/30/2017 AURE JONES MD Ot Z79.82 WET PRESS TENDER (CURRENT) USE OF ASPIRIN 09/30/2017 AURE JONES MD Ot Z79.899 OTHER WET PRESS TENDER (CURRENT) DRUG THERAPY 09/30/2017 AURE JONES MD [...] FOR OTHER PREPROCEDURAL EXAMIN 10/07/2017 KIKI ROWE MD, Ot 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, I 10/07/2017 KIKI ROWE MD Ot 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 10/07/2017 KIKI ROWE MD Ot I10 ESSENTIAL (PRIMARY) HYPERTENSION 10/07/2017 KIKI ROWE MD Ot Z79.82 WET PRESS TENDER (CURRENT) USE OF ASPIRIN 10/07/2017 KIKI ROWE MD Ot Z79.899 OTHER [facility] (CURRENT) DRUG THERAPY 10/07/2017 KIKI ROWE MD Ot Z87.891 PERSONAL HISTORY OF NICOTINE DEPENDENCE 10/11/2017 KIKI ROWE MD Ot 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, I 10/11/2017 KIKI ROWE MD Ot 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 10/11/2017 KIKI ROWE MD Ot I10 ESSENTIAL (PRIMARY) HYPERTENSION 10/11/2017 KIKI ROWE MD Ot Z79.82 [facility] (CURRENT) USE OF ASPIRIN 10/11/2017 KIKI ROWE MD Ot Z79.899 OTHER [facility] (CURRENT) DRUG THERAPY 10/11/2017 KIKI ROWE MD Ot Z87.891 PERSONAL HISTORY OF NICOTINE DEPENDENCE 10/11/2017 KIKI ROWE MD Ot 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, I 10/11/2017 KIKI ROWE MD Ot 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 10/11/2017 KIKI ROWE MD Ot I10 ESSENTIAL (PRIMARY) HYPERTENSION 10/11/2017 KIKI ROWE MD Ot Z79.82 [facility] (CURRENT) USE OF ASPIRIN 10/11/2017 KIKI ROWE MD Ot Z79.899 OTHER WET PRESS TENDER (CURRENT) DRUG THERAPY 10/11/2017 KIKI ROWE MD Ot Z87.891 PERSONAL HISTORY OF NICOTINE DEPENDENCE 10/12/2017 KIKI ROWE MD, Ot 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, I 10/12/2017 KIKI ROWE MD, Ot 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 10/12/2017 KIKI ROWE MD, Ot I10 ESSENTIAL (PRIMARY) HYPERTENSION 10/12/2017 KIKI ROWE MD, Ot Z79.82 WET PRESS TENDER (CURRENT) USE OF ASPIRIN 10/12/2017 KIKI ROWE MD, Ot Z79.899 OTHER WET PRESS TENDER (CURRENT) DRUG THERAPY 10/12/2017 KIKI ROWE MD, Ot Z87.891 PERSONAL HISTORY OF NICOTINE DEPENDENCE 10/12/2017 JEREMY JIMENEZ, FRANCISCO Christopher Ot N39.0 URINARY TRACT INFECTION, SITE NOT SPECIF 10/12/2017 AURE JONES MD, Ot 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, I 10/12/2017 AURE JONES MD Ot 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 GAMMOPATHY 10/12/2017 AURE JONES MD Ot I10 ESSENTIAL (PRIMARY) HYPERTENSION 10/12/2017 AURE JONES MD Ot I25.10 ATHSCL HEART DISEASE OF [place] CORONARY 10/12/2017 AURE JONES MD Ot I49.5 SICK SINUS SYNDROME 10/12/2017 AURE JONES MD Ot M19.91 PRIMARY OSTEOARTHRITIS, UNSPECIFIED SITE 10/12/2017 AURE JONES MD Ot Z79.82 WET PRESS TENDER (CURRENT) USE OF ASPIRIN 10/12/2017 AURE JONES MD Ot Z79.899 OTHER [facility] (CURRENT) DRUG THERAPY 10/12/2017 AURE JONES MD Ot Z87.891 PERSONAL HISTORY [...] Ot R60.9 EDEMA, UNSPECIFIED 10/12/2017 TIERRA MARIN MD, Ot Z87.891 PERSONAL HISTORY OF NICOTINE DEPENDENCE 10/12/2017 AURE JONES MD Ot I70.0 ATHEROSCLEROSIS OF AORTA 10/12/2017 AURE JONES MD Ot I77.811 ABDOMINAL AORTIC ECTASIA 10/12/2017 AURE JONES MD Ot K57.90 DVRTCLOS OF INTEST, PART UNSP, W/O PERF 10/12/2017 AURE JONES MD Ot K76.89 OTHER SPECIFIED DISEASES OF LIVER 10/12/2017 AURE JONES MD Ot Z85.820 PERSONAL HISTORY OF MALIGNANT MELANOMA O 10/12/2017 AURE JONES MD, Ot Z87.891 PERSONAL HISTORY OF NICOTINE DEPENDENCE 10/12/2017 AURE JONES MD Ot 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 ORGAN( 10/12/2017 KIKI ROWE MD, Ot E04.1 NONTOXIC SINGLE THYROID NODULE 10/13/2017 KIKI ROWE MD, Ot 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, I 10/13/2017 KIKI ROWE MD, Ot 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 10/13/2017 KIKI ROWE MD, Ot I10 ESSENTIAL (PRIMARY) HYPERTENSION 10/13/2017 KIKI ROWE MD, Ot Z79.82 WET PRESS TENDER (CURRENT) USE OF ASPIRIN 10/13/2017 KIKI ROWE MD, Ot Z79.899 OTHER [facility] (CURRENT) DRUG THERAPY 10/13/2017 KIKI ROWE MD, Ot Z87.891 PERSONAL HISTORY OF NICOTINE DEPENDENCE 10/16/2017 KIKI ROWE MD, Ot 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, I 10/16/2017 KIKI ROWE MD Ot 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 10/16/2017 KIKI ROWE MD Ot I10 ESSENTIAL (PRIMARY) HYPERTENSION 10/16/2017 KIKI ROWE MD Ot Z79.82 WET PRESS TENDER (CURRENT) USE OF ASPIRIN 10/16/2017 KIKI ROWE MD Ot Z79.899 OTHER [facility] (CURRENT) DRUG THERAPY 10/16/2017 KIKI ROWE MD, Ot Z87.891 PERSONAL HISTORY OF NICOTINE DEPENDENCE 10/19/2017 KIKI ROWE MD, Ot 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, I 10/19/2017 KIKI ROWE MD Ot 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 10/19/2017 KIKI ROWE MD, Ot 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, I 10/19/2017 KIKI ROWE MD Ot 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 10/21/2017 KIKI ROWE MD Ot Z01.818 ENCOUNTER FOR OTHER PREPROCEDURAL EXAMIN 10/21/2017 KIKI ROWE MD Ot Z12.11 ENCOUNTER FOR SCREENING FOR MALIGNANT NE 10/21/2017 KIKI ROWE MD Ot Z85.820 PERSONAL HISTORY OF MALIGNANT MELANOMA O 10/21/2017 AURE JONES MD Ot I70.0 ATHEROSCLEROSIS OF AORTA 10/21/2017 AURE JONES MD Ot I77.811 ABDOMINAL AORTIC ECTASIA 10/21/2017 AURE JONES MD, Ot K57.90 DVRTCLOS OF INTEST, PART UNSP, W/O PERF 10/21/2017 AURE JONES MD Ot K76.89 OTHER SPECIFIED DISEASES OF LIVER 10/21/2017 AURE JONES MD Ot Z85.820 PERSONAL HISTORY OF MALIGNANT MELANOMA O 10/21/2017 AURE JONES MD, Ot Z87.891 PERSONAL HISTORY OF NICOTINE DEPENDENCE 10/21/2017 AURE JONES MD Ot 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 ORGAN( 10/24/2017 ROWE MD, KIKI M Ot 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, I 10/24/2017 KIKI ROWE MD Ot I25.10 ATHSCL HEART DISEASE OF [place] CORONARY 10/24/2017 KIKI ROWE MD Ot K57.30 DVRTCLOS OF LG INT W/O PERFORATION OR AB 10/24/2017 KIKI ROWE MD Ot Z79.82 WET PRESS TENDER (CURRENT) USE OF ASPIRIN 10/24/2017 KIKI ROWE MD Ot Z79.899 OTHER [facility] (CURRENT) DRUG THERAPY 10/24/2017 KIKI ROWE MD [...] MD Ot I25.10 ATHSCL HEART DISEASE OF [place] CORONARY 10/26/2017 KIKI ROWE MD Ot K57.30 DVRTCLOS OF LG INT W/O PERFORATION OR AB 10/26/2017 KIKI ROWE MD Ot Z79.82 WET PRESS TENDER (CURRENT) USE OF ASPIRIN 10/26/2017 KIKI ROWE MD Ot Z79.899 OTHER WET PRESS TENDER (CURRENT) DRUG THERAPY 10/26/2017 KIKI ROWE MD Ot Z87.891 PERSONAL HISTORY OF NICOTINE DEPENDENCE 10/26/2017 KIKI ROWE MD Ot 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, I 10/26/2017 KIKI ROWE MD Ot I25.10 ATHSCL HEART DISEASE OF [place] CORONARY 10/26/2017 KIKI ROWE MD Ot K57.30 DVRTCLOS OF LG INT W/O PERFORATION OR AB 10/26/2017 KIKI ROWE MD Ot Z79.82 [facility] (CURRENT) USE OF ASPIRIN 10/26/2017 KIKI ROWE MD Ot Z79.899 OTHER WET PRESS TENDER (CURRENT) DRUG THERAPY 10/26/2017 KIKI ROWE MD, Ot Z87.891 PERSONAL HISTORY OF NICOTINE DEPENDENCE 10/26/2017 AURE JONES MD, Ot 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, I 10/26/2017 AURE JONES MD Ot 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 GAMMOPATHY 10/26/2017 AURE JONES MD Ot I10 ESSENTIAL (PRIMARY) HYPERTENSION 10/26/2017 AURE JONES MD Ot I25.10 ATHSCL HEART DISEASE OF [place] CORONARY 10/26/2017 AURE JONES MD Ot I49.5 SICK SINUS SYNDROME 10/26/2017 AURE JONES MD, Ot M19.91 PRIMARY OSTEOARTHRITIS, UNSPECIFIED SITE 10/26/2017 AURE JONES MD, Ot Z79.82 FCI (CURRENT) USE OF ASPIRIN 10/26/2017 AURE JONES MD, Ot Z79.899 OTHER [facility] (CURRENT) DRUG THERAPY 10/26/2017 AURE JONES MD, Ot Z87.891 PERSONAL HISTORY OF NICOTINE DEPENDENCE 10/27/2017 KIKI ROWE MD, Ot E04.1 NONTOXIC SINGLE THYROID NODULE 10/30/2017 KIKI ROWE MD, Ot 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, I 10/30/2017 KIKI ROWE MD, Ot I25.10 ATHSCL HEART DISEASE OF [place] CORONARY 10/30/2017 KIKI ROWE MD, Ot K57.30 DVRTCLOS OF LG INT W/O PERFORATION OR AB 10/30/2017 KIKI ROWE MD, Ot Z79.82 [facility] (CURRENT) USE OF ASPIRIN 10/30/2017 KIKI ROWE MD, Ot Z79.899 OTHER WET PRESS TENDER (CURRENT) DRUG THERAPY 10/30/2017 KIKI ROWE MD, Ot Z87.891 PERSONAL HISTORY OF NICOTINE DEPENDENCE 10/31/2017 AURE JONES MD Ot K76.89 OTHER SPECIFIED DISEASES OF LIVER 10/31/2017 AURE JONES MD, Ot K76.89 OTHER SPECIFIED DISEASES OF LIVER 11/01/2017 AURE JONES MD Ot M23.8X2 OTHER INTERNAL DERANGEMENTS OF LEFT KNEE 11/01/2017 AURE JONES MD Ot S83.242A OTH TEAR OF MEDIAL MENISCUS, CURRENT INJ 11/01/2017 AURE JONES MD, Ot S83.282A OTH TEAR OF LAT MENSC, [...] PERSONAL HISTORY OF MALIGNANT MELANOMA O 11/02/2017 JAE JIMENEZ, KIKI An Ot E04.1 NONTOXIC SINGLE THYROID NODULE 11/02/2017 [...] MD Ot I25.10 ATHSCL HEART DISEASE OF [place] CORONARY 11/03/2017 AURE JONES MD Ot I49.5 SICK SINUS SYNDROME 11/03/2017 AURE JONES MD Ot M19.91 PRIMARY OSTEOARTHRITIS, UNSPECIFIED SITE 11/03/2017 AURE JONES MD Ot Z79.82 WET PRESS TENDER (CURRENT) USE OF ASPIRIN 11/03/2017 AURE JONES MD Ot Z79.899 OTHER [facility] (CURRENT) DRUG THERAPY 11/03/2017 AURE JONES MD Ot Z87.891 PERSONAL HISTORY OF NICOTINE DEPENDENCE 11/03/2017 AURE JONES MD Ot 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, I 11/03/2017 AURE JONES MD Ot 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 GAMMOPATHY 11/03/2017 AURE JONES MD Ot I10 ESSENTIAL (PRIMARY) HYPERTENSION 11/03/2017 AURE JONES MD Ot I25.10 ATHSCL HEART DISEASE OF [place] CORONARY 11/03/2017 AURE JONES MD Ot I49.5 SICK SINUS SYNDROME 11/03/2017 AURE JONES MD Ot M19.91 PRIMARY OSTEOARTHRITIS, UNSPECIFIED SITE 11/03/2017 AURE JONES MD Ot Z79.82 [facility] (CURRENT) USE OF ASPIRIN 11/03/2017 AURE JONES MD Ot Z79.899 OTHER WET PRESS TENDER (CURRENT) DRUG THERAPY 11/03/2017 AURE JONES MD Ot Z87.891 PERSONAL HISTORY OF NICOTINE DEPENDENCE 11/04/2017 AURE JONES MD Ot 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, I 11/04/2017 AURE JONES MD Ot 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 GAMMOPATHY 11/04/2017 AURE JONES MD Ot I10 ESSENTIAL (PRIMARY) HYPERTENSION 11/04/2017 AURE JONES MD Ot I25.10 ATHSCL HEART DISEASE OF [place] CORONARY 11/04/2017 AURE JONES MD Ot I49.5 SICK SINUS SYNDROME 11/04/2017 AURE JOENS MD Ot M19.91 PRIMARY OSTEOARTHRITIS, UNSPECIFIED SITE 11/04/2017 AURE JONES MD Ot Z79.82 WET PRESS TENDER (CURRENT) USE OF ASPIRIN 11/04/2017 AURE JONES MD Ot Z79.899 OTHER WET PRESS TENDER (CURRENT) DRUG THERAPY 11/04/2017 AURE JONES MD Ot Z87.891 PERSONAL HISTORY OF NICOTINE DEPENDENCE 11/06/2017 AURE JONES MD Ot Z85.820 PERSONAL HISTORY OF MALIGNANT MELANOMA O 11/08/2017 AURE JONES MD Ot 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, I 11/08/2017 AURE JONES MD Ot 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 GAMMOPATHY 11/08/2017 AURE JONES MD Ot I10 ESSENTIAL (PRIMARY) HYPERTENSION 11/08/2017 AURE JONES MD Ot I25.10 ATHSCL HEART DISEASE OF [place] CORONARY 11/08/2017 AURE JONES MD Ot I49.5 SICK SINUS SYNDROME 11/08/2017 AURE JONES MD Ot M19.91 PRIMARY OSTEOARTHRITIS, UNSPECIFIED SITE 11/08/2017 AURE JONES MD Ot Z79.82 [facility] (CURRENT) USE OF ASPIRIN 11/08/2017 AURE JONES MD Ot Z79.899 OTHER WET PRESS TENDER (CURRENT) DRUG THERAPY 11/08/2017 AURE JONES MD Ot Z87.891 PERSONAL HISTORY OF NICOTINE DEPENDENCE 11/08/2017 JAE JIMENEZ, KIKI An Ot 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, I 11/09/2017 BUNNY DE ANDA, SKYLA Christopher Ot E78.2 MIXED HYPERLIPIDEMIA 11/09/2017 KIKI ROWE MD Ot Z01.818 ENCOUNTER FOR OTHER PREPROCEDURAL EXAMIN 11/10/2017 KIKI ROWE MD Ot Z01.818 ENCOUNTER FOR OTHER PREPROCEDURAL EXAMIN 11/10/2017 SKYLA RUTH Ot E78.2 MIXED HYPERLIPIDEMIA 11/10/2017 SKYLA RUTH K Ot I10 ESSENTIAL (PRIMARY) HYPERTENSION 11/11/2017 KIKI ROWE MD Ot 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, I 11/11/2017 KIKI ROWE MD Ot 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 11/11/2017 KIKI ROWE MD Ot I10 ESSENTIAL (PRIMARY) HYPERTENSION 11/11/2017 KIKI ROWE MD Ot I25.10 ATHSCL HEART DISEASE OF [place] CORONARY 11/11/2017 KIKI ROWE MD Ot Z79.82 [facility] (CURRENT) USE OF ASPIRIN 11/11/2017 KIKI ROWE MD Ot Z79.899 OTHER [facility] (CURRENT) DRUG THERAPY 11/11/2017 KIKI ROWE MD Ot Z87.891 PERSONAL HISTORY OF NICOTINE DEPENDENCE 11/15/2017 KIKI ROWE MD Ot 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, I 11/15/2017 KIKI ROWE MD Ot 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 11/15/2017 KIKI ROWE MD Ot I10 ESSENTIAL (PRIMARY) HYPERTENSION 11/15/2017 KIKI ROWE MD Ot I25.10 ATHSCL HEART DISEASE OF [place] CORONARY 11/15/2017 KIKI ROWE MD Ot Z79.82 [facility] (CURRENT) USE OF ASPIRIN 11/15/2017 KIKI ORWE MD Ot Z79.899 OTHER WET PRESS TENDER (CURRENT) DRUG THERAPY 11/15/2017 KIKI ROWE MD Ot Z87.891 PERSONAL HISTORY [...] SPECIFIED DISEASES OF LIVER 11/17/2017 AURE JONES MD, Ot S83.242A OTH TEAR OF MEDIAL MENISCUS, CURRENT INJ 11/17/2017 AURE JONES MD, Ot S83.282A OTH TEAR OF LAT MENSC, CURRENT INJURY, L 11/17/2017 AURE JONES MD Ot Z85.820 PERSONAL HISTORY OF MALIGNANT MELANOMA O 11/22/2017 KIKI ROWE MD, Ot 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, I 11/22/2017 KIKI ROWE MD Ot 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 11/22/2017 KIKI ROWE MD Ot I10 ESSENTIAL (PRIMARY) HYPERTENSION 11/22/2017 KIKI ROWE MD Ot I25.10 ATHSCL HEART DISEASE OF [place] CORONARY 11/22/2017 KIKI ROWE MD Ot Z79.82 WET PRESS TENDER (CURRENT) USE OF ASPIRIN 11/22/2017 KIKI ROWE MD Ot Z79.899 OTHER WET PRESS TENDER (CURRENT) DRUG THERAPY 11/22/2017 KIKI ROWE MD, Ot Z87.891 PERSONAL HISTORY [...] MD Ot I25.10 ATHSCL HEART DISEASE OF [place] CORONARY 11/23/2017 AURE JONES MD Ot I49.5 SICK SINUS SYNDROME 11/23/2017 AURE JONES MD Ot M19.91 PRIMARY OSTEOARTHRITIS, UNSPECIFIED SITE 11/23/2017 AURE JONES MD Ot Z79.82 [facility] (CURRENT) USE OF ASPIRIN 11/23/2017 AURE JONES MD Ot Z79.899 OTHER WET PRESS TENDER (CURRENT) DRUG THERAPY 11/23/2017 AURE JONES MD [...] MD Ot I25.10 ATHSCL HEART DISEASE OF [place] CORONARY 12/12/2017 AURE JONES MD Ot I49.5 SICK SINUS SYNDROME 12/12/2017 AURE JONES MD Ot M19.91 PRIMARY OSTEOARTHRITIS, UNSPECIFIED SITE 12/12/2017 AURE JONES MD Ot Z79.82 [facility] (CURRENT) USE OF ASPIRIN 12/12/2017 AURE JONES MD Ot Z79.899 OTHER [facility] (CURRENT) DRUG THERAPY 12/12/2017 AURE JONES MD Ot Z87.891 PERSONAL HISTORY OF NICOTINE DEPENDENCE 12/21/2017 KIKI ROWE MD Ot 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, I 12/21/2017 KIKI ROWE MD Ot 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 12/21/2017 KIKI ROWE MD Ot I10 ESSENTIAL (PRIMARY) HYPERTENSION 12/21/2017 KIKI ROWE MD Ot I25.10 ATHSCL HEART DISEASE OF [place] CORONARY 12/21/2017 KIKI ROWE MD Ot Z79.82 WET PRESS TENDER (CURRENT) USE OF ASPIRIN 12/21/2017 KIKI ROWE MD Ot Z79.899 OTHER [facility] (CURRENT) DRUG THERAPY 12/21/2017 KIKI ROWE MD Ot Z87.891 PERSONAL HISTORY OF NICOTINE DEPENDENCE 12/23/2017 AURE JONES MD Ot 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, I 12/23/2017 AURE JONES MD Ot 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 GAMMOPATHY 12/23/2017 AURE JONES MD Ot I10 ESSENTIAL (PRIMARY) HYPERTENSION 12/23/2017 AURE JONES MD Ot I25.10 ATHSCL HEART DISEASE OF [place] CORONARY 12/23/2017 AURE JONES MD Ot I49.5 SICK SINUS SYNDROME 12/23/2017 AURE JONES MD Ot M19.91 PRIMARY OSTEOARTHRITIS, UNSPECIFIED SITE 12/23/2017 UARE JONES MD Ot Z79.82 WET PRESS TENDER (CURRENT) USE OF ASPIRIN 12/23/2017 AURE JONES MD Ot Z79.899 OTHER [facility] (CURRENT) DRUG THERAPY 12/23/2017 AURE JONES MD Ot Z87.891 PERSONAL HISTORY OF NICOTINE DEPENDENCE 01/05/2018 AURE JONES MD Ot 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, I 01/05/2018 AURE JONES MD Ot 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 GAMMOPATHY 01/05/2018 AURE JONES MD Ot I10 ESSENTIAL (PRIMARY) HYPERTENSION 01/05/2018 AURE JONES MD Ot I25.10 ATHSCL HEART DISEASE OF [place] CORONARY 01/05/2018 AURE JONES MD Ot I49.5 SICK SINUS SYNDROME 01/05/2018 AURE JONES MD Ot M19.91 PRIMARY OSTEOARTHRITIS, UNSPECIFIED SITE 01/05/2018 AURE JONES MD Ot Z79.82 WET PRESS TENDER (CURRENT) USE OF ASPIRIN 01/05/2018 AURE JONES MD Ot Z79.899 OTHER WET PRESS TENDER (CURRENT) DRUG THERAPY 01/05/2018 AURE JONES MD Ot Z87.891 PERSONAL HISTORY OF NICOTINE DEPENDENCE 01/05/2018 AURE JONES MD Ot 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, I 01/05/2018 AURE JONES MD Ot 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 GAMMOPATHY 01/05/2018 AURE JONES MD Ot I10 ESSENTIAL (PRIMARY) HYPERTENSION 01/05/2018 AURE JONES MD Ot I25.10 ATHSCL HEART DISEASE OF [place] CORONARY 01/05/2018 AURE JONES MD Ot I49.5 SICK SINUS SYNDROME 01/05/2018 AURE JONES MD Ot M19.91 PRIMARY OSTEOARTHRITIS, UNSPECIFIED SITE 01/05/2018 AURE JONES MD Ot Z79.82 WET PRESS TENDER (CURRENT) USE OF ASPIRIN 01/05/2018 AURE JONES MD Ot Z79.899 OTHER [facility] (CURRENT) DRUG THERAPY 01/05/2018 AURE JONES MD Ot Z87.891 PERSONAL HISTORY OF NICOTINE DEPENDENCE 01/19/2018 AURE JONES MD Ot 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, I 01/19/2018 AURE JONES MD Ot 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 GAMMOPATHY 01/19/2018 AURE JONES MD Ot I10 ESSENTIAL (PRIMARY) HYPERTENSION 01/19/2018 AURE JONES MD Ot I25.10 ATHSCL HEART DISEASE OF [place] CORONARY 01/19/2018 AURE JONES MD Ot I49.5 SICK SINUS SYNDROME 01/19/2018 AURE JONES MD Ot M19.91 PRIMARY OSTEOARTHRITIS, UNSPECIFIED SITE 01/19/2018 AURE JONES MD Ot Z79.82 [facility] (CURRENT) USE OF ASPIRIN 01/19/2018 AURE JONES MD Ot Z79.899 OTHER [facility] (CURRENT) DRUG THERAPY 01/19/2018 AURE JONES MD Ot Z87.891 PERSONAL HISTORY OF NICOTINE DEPENDENCE 02/05/2018 AURE JONES MD Ot 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, I 02/05/2018 AURE JONES MD Ot 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 GAMMOPATHY 02/05/2018 AURE JONES MD Ot I10 ESSENTIAL (PRIMARY) HYPERTENSION 02/05/2018 JACE JONES MDNER Ot I25.10 ATHSCL HEART DISEASE OF [place] CORONARY 02/05/2018 AURE JONES MD Ot I49.5 SICK SINUS SYNDROME 02/05/2018 AURE JONES MD Ot M19.91 PRIMARY OSTEOARTHRITIS, UNSPECIFIED SITE 02/05/2018 AURE JONES MD Ot Z51.11 ENCOUNTER FOR ANTINEOPLASTIC CHEMOTHERAP 02/05/2018 AURE JONES MD Ot Z79.82 WET PRESS TENDER (CURRENT) USE OF ASPIRIN 02/05/2018 AURE JONES MD Ot Z79.899 OTHER WET PRESS TENDER (CURRENT) DRUG THERAPY 02/05/2018 AURE JONES MD Ot Z87.891 PERSONAL HISTORY OF NICOTINE DEPENDENCE 02/17/2018 AURE JONES MD Ot 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, I 02/17/2018 AURE JONES MD Ot 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 GAMMOPATHY 02/17/2018 AURE JONES MD Ot I10 ESSENTIAL (PRIMARY) HYPERTENSION 02/17/2018 AURE JONES MD Ot I25.10 ATHSCL HEART DISEASE OF [place] CORONARY 02/17/2018 AURE JONES MD Ot I49.5 SICK SINUS SYNDROME 02/17/2018 AURE JONES MD Ot M19.91 PRIMARY OSTEOARTHRITIS, UNSPECIFIED SITE 02/17/2018 AURE JONES MD Ot Z79.82 WET PRESS TENDER (CURRENT) USE OF ASPIRIN 02/17/2018 AURE JONES MD Ot Z79.899 OTHER WET PRESS TENDER (CURRENT) DRUG THERAPY 02/17/2018 AURE JONES MD Ot Z87.891 PERSONAL HISTORY OF NICOTINE DEPENDENCE 03/02/2018 AURE JONES MD Ot 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, I 03/02/2018 AURE JONES MD Ot 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 GAMMOPATHY 03/02/2018 AURE JONES MD Ot I10 ESSENTIAL (PRIMARY) HYPERTENSION 03/02/2018 AURE JONES MD Ot I25.10 ATHSCL HEART DISEASE OF [place] CORONARY 03/02/2018 AURE JONES MD Ot I49.5 SICK SINUS SYNDROME 03/02/2018 AURE JONES MD Ot M19.91 PRIMARY OSTEOARTHRITIS, UNSPECIFIED SITE 03/02/2018 AURE JONES MD Ot Z51.11 ENCOUNTER FOR ANTINEOPLASTIC CHEMOTHERAP 03/02/2018 AURE JONES MD Ot Z79.82 [facility] (CURRENT) USE OF ASPIRIN 03/02/2018 AURE JONES MD Ot Z79.899 OTHER WET PRESS TENDER (CURRENT) DRUG THERAPY 03/02/2018 AURE JONES MD Ot Z87.891 PERSONAL HISTORY OF NICOTINE DEPENDENCE 03/20/2018 MARCI SHARP MD Ot A41.9 SEPSIS, UNSPECIFIED ORGANISM 03/20/2018 MARCI SHARP MD Ot 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 MELANOMA OF SKIN, UNSPECIFIED 03/20/2018 MARCI SHARP MD Ot I10 ESSENTIAL (PRIMARY) HYPERTENSION 03/20/2018 MARCI SHARP MD Ot J18.9 PNEUMONIA, UNSPECIFIED ORGANISM 03/20/2018 MARCI SHARP MD Ot J30.2 OTHER SEASONAL ALLERGIC RHINITIS 03/20/2018 MARCI SHARP MD Ot K59.09 OTHER CONSTIPATION 03/20/2018 MARCI SHARP MD Ot M19.91 PRIMARY OSTEOARTHRITIS, UNSPECIFIED SITE 03/20/2018 MARCI SHARP MD Ot R31.9 HEMATURIA, UNSPECIFIED 03/20/2018 MARCI SHARP MD Ot R60.9 EDEMA, UNSPECIFIED 03/20/2018 MARCI SHARP MD Ot Z79.899 OTHER [facility] (CURRENT) DRUG THERAPY 03/20/2018 MARCI SHARP MD Ot Z85.46 PERSONAL HISTORY OF MALIGNANT NEOPLASM O 03/20/2018 MARCI SHARP MD Ot Z85.51 PERSONAL HISTORY OF MALIGNANT NEOPLASM O 03/20/2018 MARCI SHARP MD Ot Z85.828 PERSONAL HISTORY OF OTHER MALIGNANT NEOP 03/20/2018 MARCI SHARP MD Ot Z87.891 PERSONAL HISTORY OF NICOTINE DEPENDENCE 03/20/2018 MARCI SHARP MD Ot 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 ORGAN( 03/20/2018 MARCI SHARP MD Ot Z92.3 PERSONAL HISTORY OF IRRADIATION 03/23/2018 MARCI SHARP MD Ot A41.9 SEPSIS, UNSPECIFIED ORGANISM 03/23/2018 MARCI SHARP MD Ot 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 MELANOMA OF SKIN, UNSPECIFIED 03/23/2018 MARCI SHARP MD Ot I10 ESSENTIAL (PRIMARY) HYPERTENSION 03/23/2018 MARCI SHARP MD Ot J18.9 PNEUMONIA, UNSPECIFIED ORGANISM 03/23/2018 MARCI SHARP MD Ot J30.2 OTHER SEASONAL ALLERGIC RHINITIS 03/23/2018 MARCI SHAPR MD Ot K59.09 OTHER CONSTIPATION 03/23/2018 MARCI SHARP MD Ot M19.91 PRIMARY OSTEOARTHRITIS, UNSPECIFIED SITE 03/23/2018 MARCI SHARP MD Ot R31.9 HEMATURIA, UNSPECIFIED 03/23/2018 MARCI SHARP MD Ot R60.9 EDEMA, UNSPECIFIED 03/23/2018 MARCI SHARP MD Ot Z79.899 OTHER WET PRESS TENDER (CURRENT) DRUG THERAPY 03/23/2018 MARCI SHARP MD Ot Z85.46 PERSONAL HISTORY OF MALIGNANT NEOPLASM O 03/23/2018 MARCI SHARP MD Ot Z85.51 PERSONAL HISTORY OF MALIGNANT NEOPLASM O 03/23/2018 MARCI SHARP MD Ot Z85.828 PERSONAL HISTORY OF OTHER MALIGNANT NEOP 03/23/2018 MARCI SHARP MD Ot Z87.891 PERSONAL HISTORY OF NICOTINE DEPENDENCE 03/23/2018 MARCI SHARP MD Ot 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 ORGAN( 03/23/2018 MARCI SHARP MD Ot Z92.3 PERSONAL HISTORY OF IRRADIATION 03/23/2018 MARCI SHARP MD Ot A41.9 SEPSIS, UNSPECIFIED ORGANISM 03/23/2018 MARCI SHARP MD Ot 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, I 03/23/2018 MARCI SHARP MD Ot 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 MELANOMA OF SKIN, UNSPECIFIED 03/23/2018 MARCI SHARP MD Ot 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 03/23/2018 MARCI SHARP MD Ot D64.9 ANEMIA, UNSPECIFIED 03/23/2018 MARCI SHARP MD Ot D72.819 DECREASED WHITE BLOOD CELL COUNT, UNSPEC 03/23/2018 MARCI SHARP MD Ot I10 ESSENTIAL (PRIMARY) HYPERTENSION 03/23/2018 MARCI SHARP MD Ot J18.9 PNEUMONIA, UNSPECIFIED ORGANISM 03/23/2018 MARCI SHARP MD Ot J30.2 OTHER SEASONAL ALLERGIC RHINITIS 03/23/2018 MARCI SHARP MD Ot K59.09 OTHER CONSTIPATION 03/23/2018 MARCI SHARP MD Ot L95.9 VASCULITIS LIMITED TO THE SKIN, UNSPECIF 03/23/2018 MARCI SHARP MD Ot M19.91 PRIMARY OSTEOARTHRITIS, UNSPECIFIED SITE 03/23/2018 MARCI SHARP MD Ot R29.898 OTH SYMPTOMS AND SIGNS INVOLVING THE MUS 03/23/2018 MARCI SHARP MD Ot R31.9 HEMATURIA, UNSPECIFIED 03/23/2018 MARCI SHARP MD, Ot R60.9 EDEMA, UNSPECIFIED 03/23/2018 MARCI SHARP MD Ot T45.1X5A ADVERSE EFFECT OF ANTINEOPLASTIC AND IMM 03/23/2018 MARCI SHARP MD, Ot Z79.899 OTHER WET PRESS TENDER (CURRENT) DRUG THERAPY 03/23/2018 MARCI SHARP MD Ot Z85.46 PERSONAL HISTORY OF MALIGNANT NEOPLASM O 03/23/2018 MARCI SHARP MD Ot Z85.51 PERSONAL HISTORY OF MALIGNANT NEOPLASM O 03/23/2018 MARCI SHARP MD Ot Z85.828 PERSONAL HISTORY OF OTHER MALIGNANT NEOP 03/23/2018 MARCI SHARP MD Ot Z87.891 PERSONAL HISTORY OF NICOTINE DEPENDENCE 03/23/2018 MARCI SHARP MD Ot 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 ORGAN( 03/23/2018 MARCI SHARP MD Ot Z92.3 PERSONAL HISTORY OF IRRADIATION 03/28/2018 AURE JONES MD Ot 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, I 03/28/2018 AURE JONES MD Ot 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 GAMMOPATHY 03/28/2018 AURE JONES MD Ot I10 ESSENTIAL (PRIMARY) HYPERTENSION 03/28/2018 AURE JONES MD Ot I25.10 ATHSCL HEART DISEASE OF [place] CORONARY 03/28/2018 AURE JONES MD Ot I49.5 SICK SINUS SYNDROME 03/28/2018 AURE JONES MD Ot M19.91 PRIMARY OSTEOARTHRITIS, UNSPECIFIED SITE 03/28/2018 AURE JONES MD Ot Z51.11 ENCOUNTER FOR ANTINEOPLASTIC CHEMOTHERAP 03/28/2018 AURE JONES MD Ot Z79.82 WET PRESS TENDER (CURRENT) USE OF ASPIRIN 03/28/2018 AURE JONES MD Ot Z79.899 OTHER [facility] (CURRENT) DRUG THERAPY 03/28/2018 AURE JONES MD Ot Z87.891 PERSONAL HISTORY OF NICOTINE DEPENDENCE 04/05/2018 DANNA LAWS MD Ot 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 04/05/2018 DANNA LAWS MD Ot D64.9 ANEMIA, UNSPECIFIED 04/05/2018 DANNA LAWS MD Ot I10 ESSENTIAL (PRIMARY) HYPERTENSION 04/05/2018 DANNA LAWS MD Ot I25.10 ATHSCL HEART DISEASE OF [place] CORONARY 04/05/2018 DANNA LAWS MD Ot I49.5 SICK SINUS SYNDROME 04/05/2018 DANNA LAWS MD Ot 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[place] 04/05/2018 DNANA LAWS MD Ot I77.6 ARTERITIS, UNSPECIFIED 04/05/2018 DANNA LAWS MD Ot 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 04/05/2018 DANNA LAWS MD Ot M47.896 OTHER SPONDYLOSIS, LUMBAR REGION 04/05/2018 DANNA LAWS MD Ot T45.1X5A ADVERSE EFFECT OF ANTINEOPLASTIC AND IMM 04/05/2018 DANNA LAWS MD Ot Z23 ENCOUNTER FOR IMMUNIZATION 04/06/2018 AURE JONES MD Ot 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, I 04/06/2018 AURE JONES MD Ot 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 GAMMOPATHY 04/06/2018 AURE JONES MD Ot I10 ESSENTIAL (PRIMARY) HYPERTENSION 04/06/2018 AURE JONES MD, Ot I25.10 ATHSCL HEART DISEASE OF [place] CORONARY 04/06/2018 AURE JONES MD Ot I49.5 SICK SINUS SYNDROME 04/06/2018 AURE JONES MD Ot M19.91 PRIMARY OSTEOARTHRITIS, UNSPECIFIED SITE 04/06/2018 AURE JONES MD Ot Z51.11 ENCOUNTER FOR ANTINEOPLASTIC CHEMOTHERAP 04/06/2018 AURE JONES MD Ot Z79.82 [facility] (CURRENT) USE OF ASPIRIN 04/06/2018 AURE JONES MD Ot Z79.899 OTHER WET PRESS TENDER (CURRENT) DRUG THERAPY 04/06/2018 AURE JONES MD, Ot Z87.891 PERSONAL HISTORY OF NICOTINE DEPENDENCE 04/27/2018 AJ CUBA MD Ot J18.9 PNEUMONIA, UNSPECIFIED ORGANISM 04/27/2018 AJ CUBA MD Ot Z95.828 PRESENCE OF OTHER VASCULAR IMPLANTS AND 04/27/2018 AJ CUBA MD Ot Z98.1 ARTHRODESIS STATUS 05/18/2018 AJ CUBA MD, Ot J18.9 PNEUMONIA, UNSPECIFIED ORGANISM 05/18/2018 AJ CUBA MD Ot Z95.828 PRESENCE OF OTHER VASCULAR IMPLANTS AND 05/18/2018 AJ CUBA MD Ot Z98.1 ARTHRODESIS STATUS 05/19/2018 LASHONDA LUTHER APRN Ot R10.31 RIGHT LOWER QUADRANT PAIN 05/19/2018 LASHONDA LUTHER APRN Ot Z98.890 OTHER SPECIFIED POSTPROCEDURAL STATES 05/19/2018 JEREMY JIMENEZ, FRANCISCO Christopher Ot N39.0 URINARY TRACT INFECTION, SITE NOT SPECIF 05/19/2018 TIERRA MARIN MD Ot G89.29 OTHER CHRONIC PAIN 05/19/2018 TIERRA MARIN MD Ot I10 ESSENTIAL (PRIMARY) HYPERTENSION 05/19/2018 TIERRA MARIN MD Ot Z87.891 PERSONAL HISTORY OF NICOTINE DEPENDENCE 05/19/2018 TIERRA MARIN MD Ot G89.29 OTHER CHRONIC PAIN 05/19/2018 TIERRA MARIN MD Ot I10 ESSENTIAL (PRIMARY) HYPERTENSION 05/19/2018 TIERRA MARIN MD Ot Z87.891 PERSONAL HISTORY OF NICOTINE DEPENDENCE 05/19/2018 TIERRA MARIN MD Ot 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 GAMMOPATHY 05/19/2018 TIERRA MARIN MD Ot G89.29 OTHER CHRONIC PAIN 05/19/2018 TIERRA MARIN MD Ot I10 ESSENTIAL (PRIMARY) HYPERTENSION 05/19/2018 TIERRA MARIN MD Ot R60.9 EDEMA, UNSPECIFIED 05/19/2018 TIERRA MARIN MD Ot Z87.891 PERSONAL HISTORY OF NICOTINE DEPENDENCE 05/19/2018 AURE JONES MD Ot I70.0 ATHEROSCLEROSIS OF AORTA 05/19/2018 AURE JONES MD Ot I77.811 ABDOMINAL AORTIC ECTASIA 05/19/2018 AURE JONES MD, Ot K57.90 DVRTCLOS OF INTEST, PART UNSP, W/O PERF 05/19/2018 AURE JONES MD Ot K76.89 OTHER SPECIFIED DISEASES OF LIVER 05/19/2018 AURE JONES MD, Ot Z85.820 PERSONAL HISTORY OF MALIGNANT MELANOMA O 05/19/2018 AURE JONES MD Ot Z87.891 PERSONAL HISTORY OF NICOTINE DEPENDENCE 05/19/2018 AURE JONES MD Ot 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 ORGAN( 05/19/2018 JAE JIMENEZ, KIKI An Ot E04.1 NONTOXIC SINGLE THYROID NODULE 05/19/2018 JAE JIMENEZ, KIKI An Ot 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, I 05/19/2018 AURE JONES MD Ot Z85.820 PERSONAL HISTORY OF MALIGNANT MELANOMA O 05/19/2018 AURE JONES MD Ot K76.89 OTHER SPECIFIED DISEASES OF LIVER 05/19/2018 AURE JONES MD Ot S83.242A OTH TEAR OF MEDIAL MENISCUS, CURRENT INJ 05/19/2018 AURE JONES MD, Ot S83.282A OTH TEAR OF LAT MENSC, CURRENT INJURY, L 05/19/2018 AURE JONES MD, Ot Z85.820 PERSONAL HISTORY OF MALIGNANT MELANOMA O 05/19/2018 SKYLA RUTH Ot E78.2 MIXED HYPERLIPIDEMIA 05/19/2018 SKYLA RUTH Ot I10 ESSENTIAL (PRIMARY) HYPERTENSION 05/19/2018 AJ CUBA MD, Ot 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, I 05/19/2018 AJ CUBA MD, Ot 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 GAMMOPATHY 05/19/2018 AJ CUBA MD Ot I10 ESSENTIAL (PRIMARY) HYPERTENSION 05/19/2018 AJ CUBA MD, Ot I25.10 ATHSCL HEART DISEASE OF [place] CORONARY 05/19/2018 AJ CUBA MD Ot I49.5 SICK SINUS SYNDROME 05/19/2018 AJ CUBA MD, Ot M19.91 PRIMARY OSTEOARTHRITIS, UNSPECIFIED SITE 05/19/2018 AJ CUBA MD, Ot Z79.82 [facility] (CURRENT) USE OF ASPIRIN 05/19/2018 AJ CUBA MD, Ot Z79.899 OTHER WET [employer]ESS [employer]ER (CURRENT) DRUG THERAPY 05/19/2018 AJ CUBA MD, Ot Z87.891 PERSONAL HISTORY OF NICOTINE DEPENDENCE 05/19/2018 AJ CUBA MD, Ot J18.9 PNEUMONIA, UNSPECIFIED ORGANISM 05/19/2018 AJ CUBA MD Ot Z95.828 PRESENCE OF OTHER VASCULAR IMPLANTS AND 05/19/2018 AJ CUBA MD Ot Z98.1 ARTHRODESIS STATUS 05/19/2018 LASHONDA LUTHER APRN Ot R10.31 RIGHT LOWER QUADRANT PAIN 05/19/2018 LASHONDA LUTHER APRN Ot Z98.890 OTHER SPECIFIED POSTPROCEDURAL STATES Procedures There is no data. Results Test [...] measurement in platelet poor plasma (mass/volume) - 06:07 Fibrin D-dimer FEU measurement in platelet [...] indirect bilirubin measurement (mass/volume) 0.5 mg/ dL NR Lipid 1996 panel - 05/04/17 11:24 Serum [...] g/dL 3.2-4.5 CALCIUM CORRECTED 9.0 mg/dL 8.5-10.1 Bacterial blood culture - 03/18/18 21:20 Bacterial blood culture NG NRG Bacterial throat culture - 03/18/18 21:20 Bacterial throat culture NBS NRG Bacterial blood culture - 03/18/18 21:30 Bacterial blood culture NG NRG Complete urinalysis with reflex to culture [...] urine sediment by light microscopy 2-5 NRG Bacterial urine culture - 03/18/18 23:10 Bacterial urine culture NG NRG Complete blood count (CBC) with automated white blood cell (WBC) differential - 03/19/18 05:20 Blood leukocytes automated count (number/volume) 7.0 10*3/uL 4.3-11.0 Blood erythrocytes automated count (number/volume) 3.95 10*6/uL 4.35-5.85 Venous blood hemoglobin measurement (mass/volume) 11.6 g/dL 13.3-17.7 Blood hematocrit (volume fraction) 34 % 40-54 Automated erythrocyte mean corpuscular volume 85 [foz_us] 80-99 Automated erythrocyte mean corpuscular hemoglobin (mass per erythrocyte) 29 pg 25-34 Automated erythrocyte mean corpuscular hemoglobin concentration measurement ( mass/volume) 34 g/dL 32-36 Automated erythrocyte distribution width ratio 13.2 % 10.0-14.5 Automated blood platelet count (count/volume) 206 10*3/uL 130-400 Automated blood platelet mean volume measurement 9.7 [foz_us] 7.4-10.4 Automated blood neutrophils/100 leukocytes 94 % 42-75 Automated blood lymphocytes/100 leukocytes 4 % 12-44 Blood monocytes/100 leukocytes 3 % 0-12 Automated blood eosinophils/100 leukocytes 0 % 0-10 Automated blood basophils/100 leukocytes 0 % 0-10 Blood neutrophils automated count (number/volume) 6.5 10*3 1.8-7.8 Blood lymphocytes automated count (number/volume) 0.3 10*3 1.0-4.0 Blood monocytes automated count (number/volume) 0.2 10*3 0.0-1.0 Automated eosinophil count 0.0 10*3/uL 0.0-0.3 Automated blood basophil count (count/volume) 0.0 10*3/uL 0.0-0.1 Whole blood basic metabolic panel - 03/19/18 05:20 Serum or plasma sodium measurement (moles/volume) 136 mmol/L 135-145 Serum or plasma potassium measurement (moles/volume) 3.4 mmol/L 3.6-5.0 Serum or plasma chloride measurement (moles/volume) 106 mmol/L 98-107 Carbon dioxide 20 mmol/L 21-32 Serum or plasma anion gap determination (moles/volume) 10 mmol/L 5-14 Serum or plasma urea nitrogen measurement (mass/volume) 21 mg/dL 7-18 Serum or plasma creatinine measurement (mass/volume) 1.19 mg/dL 0.60-1.30 Serum or plasma urea nitrogen/creatinine mass ratio 18 NRG Serum or plasma creatinine measurement with calculation of estimated glomerular filtration rate 59 NRG Serum or plasma glucose measurement (mass/volume) 119 mg/dL 70-105 Serum or plasma calcium measurement (mass/volume) 8.4 mg/dL 8.5-10.1 Blood manual differential performed detection - 03/19/18 05:20 Blood monocytes/100 leukocytes 2 % NRG Manual blood segmented neutrophils/100 leukocytes 93 % NRG Blood band neutrophils/100 leukocytes 3 % NRG Manual blood lymphocytes/100 leukocytes 2 % NRG TICK PANEL WITHOUT LYME - 03/19/18 05:20 Serum Ehrlichia chaffeensis IgG antibody detection <1:16 <1:16 Serum Ehrlichia chaffeensis IgM antibody detection <1:10 <1:10 Serum Rickettsia rickettsii IgG antibody assay (units/volume) < <1:16 [employer] spotted fever panel < <1:10 Francisella tularensis antibody assay <1:20 NRG Arterial blood gas measurement - 03/19/18 12:50 Blood pCO2 38 mm[Hg] 35-45 Blood pO2 87 mm[Hg] 79-93 Arterial blood bicarbonate measurement (moles/volume) 21 mmol/L 23-27 Arterial blood base excess by calculation -3.6 mmol/L - 2.5-2.5 Arterial blood oxygen saturation measurement 96 % 94-100 * Inhaled oxygen flow rate 2L NRG Arterial blood pH measurement with patient temperature correction 7.36 7.37-7.43 Arterial blood carbon dioxide, total measurement (moles/volume) 21.7 mmol/L 21.0-31.0 Body site RT RAD NRG Assessment of wrist artery patency prior to arterial puncture YES- POS NRG Setting of ventilation mode NO NRG Measurement of body temperature 101.1 NRG Complete blood count (CBC) with automated white blood cell (WBC) differential - 03/20/18 06:15 Blood leukocytes automated count (number/volume) 3.3 10*3/uL 4.3-11.0 Blood erythrocytes automated count (number/volume) 3.38 10*6/uL 4.35-5.85 Venous blood hemoglobin measurement (mass/volume) 9.8 g/dL 13.3-17.7 Blood hematocrit (volume fraction) 29 % 40-54 Automated erythrocyte mean corpuscular volume 85 [foz_us] 80-99 Automated erythrocyte mean corpuscular hemoglobin (mass per erythrocyte) 29 pg 25-34 Automated erythrocyte mean corpuscular hemoglobin concentration measurement ( mass/volume) 34 g/dL 32-36 Automated erythrocyte distribution width ratio 13.7 % 10.0-14.5 Automated blood platelet count (count/volume) 175 10*3/uL 130-400 Automated blood platelet mean volume measurement 9.9 [foz_us] 7.4-10.4 Automated blood neutrophils/100 leukocytes 81 % 42-75 Automated blood lymphocytes/100 leukocytes 14 % 12-44 Blood monocytes/100 leukocytes 5 % 0-12 Automated blood eosinophils/100 leukocytes 0 % 0-10 Automated blood basophils/100 leukocytes 0 % 0-10 Blood neutrophils automated count (number/volume) 2.7 10*3 1.8-7.8 Blood lymphocytes automated count (number/volume) 0.5 10*3 1.0-4.0 Blood monocytes automated count (number/volume) 0.2 10*3 0.0-1.0 Automated eosinophil count 0.0 10*3/uL 0.0-0.3 Automated blood basophil count (count/volume) 0.0 10*3/uL 0.0-0.1 Comprehensive metabolic panel - 03/20/18 06:15 Serum or plasma sodium measurement (moles/volume) 136 mmol/L 135-145 Serum or plasma potassium measurement (moles/volume) 3.5 mmol/L 3.6-5.0 Serum or plasma chloride measurement (moles/volume) 110 mmol/L 98-107 Carbon dioxide 20 mmol/L 21-32 Serum or plasma anion gap determination (moles/volume) 6 mmol/L 5-14 Serum or plasma urea nitrogen measurement (mass/volume) 19 mg/dL 7-18 Serum or plasma creatinine measurement (mass/volume) 0.91 mg/dL 0.60-1.30 Serum or plasma urea nitrogen/creatinine mass ratio 21 NRG Serum or plasma creatinine measurement with calculation of estimated glomerular filtration rate > NRG Serum or plasma glucose measurement (mass/volume) 103 mg/dL 70-105 Serum or plasma calcium measurement (mass/volume) 8.0 mg/dL 8.5-10.1 Serum or plasma total bilirubin measurement (mass/volume) 0.4 mg/dL 0.1-1.0 Serum or plasma alkaline phosphatase measurement (enzymatic activity/volume) 56 U/L 40-136 Serum or plasma aspartate aminotransferase measurement (enzymatic activity/ volume) 155 U/L 5-34 Serum or plasma alanine aminotransferase measurement (enzymatic activity/volume ) 118 U/L 0-55 Serum or plasma protein measurement (mass/volume) 4.9 g/dL 6.4-8.2 Serum or plasma albumin measurement (mass/volume) 2.8 g/dL 3.2-4.5 CALCIUM CORRECTED 9.0 mg/dL 8.5-10.1 Serum or plasma lithium measurement (moles/volume) - 03/20/18 06:15 BNP level 174.4 pg/mL <100.0 Methicillin resistant Staphylococcus aureus (MRSA) screening culture - 08:45 Methicillin resistant Staphylococcus aureus (MRSA) screening culture NEG NRG Complete blood count (CBC) with automated white blood cell (WBC) differential - 03/21/18 06:27 Blood leukocytes automated count (number/volume) 2.9 10*3/uL 4.3-11.0 Blood erythrocytes automated count (number/volume) 3.32 10*6/uL 4.35-5.85 Venous blood hemoglobin measurement (mass/volume) 9.8 g/dL 13.3-17.7 Blood hematocrit (volume fraction) 28 % 40-54 Automated erythrocyte mean corpuscular volume 84 [foz_us] 80-99 Automated erythrocyte mean corpuscular hemoglobin (mass per erythrocyte) 30 pg 25-34 Automated erythrocyte mean corpuscular hemoglobin concentration measurement ( mass/volume) 35 g/dL 32-36 Automated erythrocyte distribution width ratio 13.6 % 10.0-14.5 Automated blood platelet count (count/volume) 181 10*3/uL 130-400 Automated blood platelet mean volume measurement 10.1 [foz_us] 7.4-10.4 Automated blood neutrophils/100 leukocytes 73 % 42-75 Automated blood lymphocytes/100 leukocytes 22 % 12-44 Blood monocytes/100 leukocytes 5 % 0-12 Automated blood eosinophils/100 leukocytes 0 % 0-10 Automated blood basophils/100 leukocytes 0 % 0-10 Blood neutrophils automated count (number/volume) 2.1 10*3 1.8-7.8 Blood lymphocytes automated count (number/volume) 0.6 10*3 1.0-4.0 Blood monocytes automated count (number/volume) 0.2 10*3 0.0-1.0 Automated eosinophil count 0.0 10*3/uL 0.0-0.3 Automated blood basophil count (count/volume) 0.0 10*3/uL 0.0-0.1 Comprehensive metabolic panel - 03/21/18 06:27 Serum or plasma sodium measurement (moles/volume) 138 mmol/L 135-145 Serum or plasma potassium measurement (moles/volume) 4.1 mmol/L 3.6-5.0 Serum or plasma chloride measurement (moles/volume) 110 mmol/L 98-107 Carbon dioxide 22 mmol/L 21-32 Serum or plasma anion gap determination (moles/volume) 6 mmol/L 5-14 Serum or plasma urea nitrogen measurement (mass/volume) 12 mg/dL 7-18 Serum or plasma creatinine measurement (mass/volume) 0.74 mg/dL 0.60-1.30 Serum or plasma urea nitrogen/creatinine mass ratio 16 NRG Serum or plasma creatinine measurement with calculation of estimated glomerular filtration rate > NRG Serum or plasma glucose measurement (mass/volume) 108 mg/dL 70-105 Serum or plasma calcium measurement (mass/volume) 8.3 mg/dL 8.5-10.1 Serum or plasma total bilirubin measurement (mass/volume) 0.5 mg/dL 0.1-1.0 Serum or plasma alkaline phosphatase measurement (enzymatic activity/volume) 62 U/L 40-136 Serum or plasma aspartate aminotransferase measurement (enzymatic activity/ volume) 134 U/L 5-34 Serum or plasma alanine aminotransferase measurement (enzymatic activity/volume ) 111 U/L 0-55 Serum or plasma protein measurement (mass/volume) 5.6 g/dL 6.4-8.2 Serum or plasma albumin measurement (mass/volume) 3.0 g/dL 3.2-4.5 CALCIUM CORRECTED 9.1 mg/dL 8.5-10.1 Vancomycin trough - 03/21/18 10:50 Vancomycin trough 5.0 ug/mL 10.0-20.0 Complete blood count (CBC) with automated white blood cell (WBC) differential - 03/22/18 05:35 Blood leukocytes automated count (number/volume) 2.7 10*3/uL 4.3-11.0 Blood erythrocytes automated count (number/volume) 3.50 10*6/uL 4.35-5.85 Venous blood hemoglobin measurement (mass/volume) 10.0 g/dL 13.3-17.7 Blood hematocrit (volume fraction) 29 % 40-54 Automated erythrocyte mean corpuscular volume 83 [foz_us] 80-99 Automated erythrocyte mean corpuscular hemoglobin (mass per erythrocyte) 29 pg 25-34 Automated erythrocyte mean corpuscular hemoglobin concentration measurement ( mass/volume) 34 g/dL 32-36 Automated erythrocyte distribution width ratio 13.7 % 10.0-14.5 Automated blood platelet count (count/volume) 244 10*3/uL 130-400 Automated blood platelet mean volume measurement 9.7 [foz_us] 7.4-10.4 Automated blood neutrophils/100 leukocytes 74 % 42-75 Automated blood lymphocytes/100 leukocytes 19 % 12-44 Blood monocytes/100 leukocytes 7 % 0-12 Automated blood eosinophils/100 leukocytes 0 % 0-10 Automated blood basophils/100 leukocytes 0 % 0-10 Blood neutrophils automated count (number/volume) 2.0 10*3 1.8-7.8 Blood lymphocytes automated count (number/volume) 0.5 10*3 1.0-4.0 Blood monocytes automated count (number/volume) 0.2 10*3 0.0-1.0 Automated eosinophil count 0.0 10*3/uL 0.0-0.3 Automated blood basophil count (count/volume) 0.0 10*3/uL 0.0-0.1 Comprehensive metabolic panel - 03/22/18 05:35 Serum or plasma sodium measurement (moles/volume) 136 mmol/L 135-145 Serum or plasma potassium measurement (moles/volume) 4.0 mmol/L 3.6-5.0 Serum or plasma chloride measurement (moles/volume) 106 mmol/L 98-107 Carbon dioxide 21 mmol/L 21-32 Serum or plasma anion gap determination (moles/volume) 9 mmol/L 5-14 Serum or plasma urea nitrogen measurement (mass/volume) 8 mg/dL 7-18 Serum or plasma creatinine measurement (mass/volume) 0.67 mg/dL 0.60-1.30 Serum or plasma urea nitrogen/creatinine mass ratio 12 NRG Serum or plasma creatinine measurement with calculation of estimated glomerular filtration rate > NRG Serum or plasma glucose measurement (mass/volume) 145 mg/dL 70-105 Serum or plasma calcium measurement (mass/volume) 8.8 mg/dL 8.5-10.1 Serum or plasma total bilirubin measurement (mass/volume) 0.4 mg/dL 0.1-1.0 Serum or plasma alkaline phosphatase measurement (enzymatic activity/volume) 63 U/L 40-136 Serum or plasma aspartate aminotransferase measurement (enzymatic activity/ volume) 105 U/L 5-34 Serum or plasma alanine aminotransferase measurement (enzymatic activity/volume ) 102 U/L 0-55 Serum or plasma protein measurement (mass/volume) 6.1 g/dL 6.4-8.2 Serum or plasma albumin measurement (mass/volume) 3.2 g/dL 3.2-4.5 CALCIUM CORRECTED 9.4 mg/dL 8.5-10.1 Vancomycin trough - 03/22/18 09:55 Vancomycin trough 9.7 ug/mL 10.0-20.0 Complete blood count (CBC) with automated white blood cell (WBC) differential - 03/23/18 04:40 Blood leukocytes automated count (number/volume) 4.0 10*3/uL 4.3-11.0 Blood erythrocytes automated count (number/volume) 3.17 10*6/uL 4.35-5.85 Venous blood hemoglobin measurement (mass/volume) 9.4 g/dL 13.3-17.7 Blood hematocrit (volume fraction) 27 % 40-54 Automated erythrocyte mean corpuscular volume 84 [foz_us] 80-99 Automated erythrocyte mean corpuscular hemoglobin (mass per erythrocyte) 30 pg 25-34 Automated erythrocyte mean corpuscular hemoglobin concentration measurement ( mass/volume) 36 g/dL 32-36 Automated erythrocyte distribution width ratio 13.6 % 10.0-14.5 Automated blood platelet count (count/volume) 256 10*3/uL 130-400 Automated blood platelet mean volume measurement 9.8 [foz_us] 7.4-10.4 Automated blood neutrophils/100 leukocytes 61 % 42-75 Automated blood lymphocytes/100 leukocytes 30 % 12-44 Blood monocytes/100 leukocytes 9 % 0-12 Automated blood eosinophils/100 leukocytes 0 % 0-10 Automated blood basophils/100 leukocytes 1 % 0-10 Blood neutrophils automated count (number/volume) 2.4 10*3 1.8-7.8 Blood lymphocytes automated count (number/volume) 1.2 10*3 1.0-4.0 Blood monocytes automated count (number/volume) 0.3 10*3 0.0-1.0 Automated eosinophil count 0.0 10*3/uL 0.0-0.3 Automated blood basophil count (count/volume) 0.0 10*3/uL 0.0-0.1 Whole blood basic metabolic panel - 03/23/18 04:40 Serum or plasma sodium measurement (moles/volume) 138 mmol/L 135-145 Serum or plasma potassium measurement (moles/volume) 3.6 mmol/L 3.6-5.0 Serum or plasma chloride measurement (moles/volume) 106 mmol/L 98-107 Carbon dioxide 24 mmol/L 21-32 Serum or plasma anion gap determination (moles/volume) 8 mmol/L 5-14 Serum or plasma urea nitrogen measurement (mass/volume) 12 mg/dL 7-18 Serum or plasma creatinine measurement (mass/volume) 0.68 mg/dL 0.60-1.30 Serum or plasma urea nitrogen/creatinine mass ratio 18 NRG Serum or plasma creatinine measurement with calculation of estimated glomerular filtration rate > NRG Serum or plasma glucose measurement (mass/volume) 109 mg/dL 70-105 Serum or plasma calcium measurement (mass/volume) 9.0 mg/dL 8.5-10.1 Complete blood count (CBC) with automated white blood cell (WBC) differential - 03/27/18 15:25 Blood leukocytes automated count (number/volume) 6.8 10*3/uL 4.3-11.0 Blood erythrocytes automated count (number/volume) 3.46 10*6/uL 4.35-5.85 Venous blood hemoglobin measurement (mass/volume) 10.2 g/dL 13.3-17.7 Blood hematocrit (volume fraction) 30 % 40-54 Automated erythrocyte mean corpuscular volume 86 [foz_us] 80-99 Automated erythrocyte mean corpuscular hemoglobin (mass per erythrocyte) 30 pg 25-34 Automated erythrocyte mean corpuscular hemoglobin concentration measurement ( mass/volume) 34 g/dL 32-36 Automated erythrocyte distribution width ratio 14.2 % 10.0-14.5 Automated blood platelet count (count/volume) 380 10*3/uL 130-400 Automated blood platelet mean volume measurement 9.6 [foz_us] 7.4-10.4 Automated blood neutrophils/100 leukocytes 81 % 42-75 Automated blood lymphocytes/100 leukocytes 14 % 12-44 Blood monocytes/100 leukocytes 6 % 0-12 Automated blood eosinophils/100 leukocytes 0 % 0-10 Automated blood basophils/100 leukocytes 0 % 0-10 Blood neutrophils automated count (number/volume) 5.5 10*3 1.8-7.8 Blood lymphocytes automated count (number/volume) 0.9 10*3 1.0-4.0 Blood monocytes automated count (number/volume) 0.4 10*3 0.0-1.0 Automated eosinophil count 0.0 10*3/uL 0.0-0.3 Automated blood basophil count (count/volume) 0.0 10*3/uL 0.0-0.1 Complete blood count (CBC) with automated white blood cell (WBC) differential - 04/03/18 09:10 Blood leukocytes automated count (number/volume) 7.2 10*3/uL 4.3-11.0 Blood erythrocytes automated count (number/volume) 3.81 10*6/uL 4.35-5.85 Venous blood hemoglobin measurement (mass/volume) 10.8 g/dL 13.3-17.7 Blood hematocrit (volume fraction) 34 % 40-54 Automated erythrocyte mean corpuscular volume 88 [foz_us] 80-99 Automated erythrocyte mean corpuscular hemoglobin (mass per erythrocyte) 28 pg 25-34 Automated erythrocyte mean corpuscular hemoglobin concentration measurement ( mass/volume) 32 g/dL 32-36 Automated erythrocyte distribution width ratio 15.4 % 10.0-14.5 Automated blood platelet count (count/volume) 322 10*3/uL 130-400 Automated blood platelet mean volume measurement 9.4 [foz_us] 7.4-10.4 Automated blood neutrophils/100 leukocytes 63 % 42-75 Automated blood lymphocytes/100 leukocytes 29 % 12-44 Blood monocytes/100 leukocytes 7 % 0-12 Automated blood eosinophils/100 leukocytes 0 % 0-10 Automated blood basophils/100 leukocytes 1 % 0-10 Blood neutrophils automated count (number/volume) 4.5 10*3 1.8-7.8 Blood lymphocytes automated count (number/volume) 2.1 10*3 1.0-4.0 Blood monocytes automated count (number/volume) 0.5 10*3 0.0-1.0 Automated eosinophil count 0.0 10*3/uL 0.0-0.3 Automated blood basophil count (count/volume) 0.1 10*3/uL 0.0-0.1 Encounters ACCT No. Visit Date/Time Discharge Status Pt. Type Provider Facility Loc./Unit Complaint [id number] 05/15/2018 09:57:00 05/15/2018 23:59:59 CLS Outpatient AJ CUBA MD [facility] ONC [id number] 04/25/2018 09:21:00 04/25/2018 23:59:59 CLS Outpatient AJ CUBA MD [facility] RAD HISTORY OF PNEUMONIA [id number] 03/16/2018 12:40:00 04/06/2018 09:56:00 DIS Outpatient AURE JONES MD [facility] ONC [id number] 03/23/2018 10:15:00 04/05/2018 11:15:00 DIS Inpatient DANNA LAWS MD [facility] IRF DEBILITY, STENOSIS, RLE WEAKNESS [id number] 03/19/2018 00:10:00 03/23/2018 10:38:00 DIS Inpatient MARCI SHARP MD [facility] 4TH PNEUMONIA,HEMATURIA [id number] 01/19/2018 13:49:00 01/19/2018 23:59:59 CLS Outpatient AURE JONES MD [facility] ONC [id number] 11/11/2017 06:43:00 11/11/2017 13:15:00 DIS Outpatient KIKI ROWE MD [facility] CARD MELANOMA [id number] 11/09/2017 08:06:00 11/09/2017 23:59:59 CLS Outpatient SKYLA RUTH [facility] LAB I10 E78.2 [id number] 11/09/2017 05:39:00 11/09/2017 10:52:00 DIS Outpatient KIKI ROWE MD [facility] PREOP MELANOMA [id number] 11/02/2017 10:49:00 11/03/2017 16:50:00 DIS Outpatient AURE JONES MD [facility] ONC [id number] 10/31/2017 07:42:00 10/31/2017 23:59:59 CLS Outpatient AURE JNOES MD [facility] RAD R93.2 ABN PET SCAN OF LIVER [id number] 10/29/2017 07:31:00 10/29/2017 23:59:59 CLS Outpatient AURE JONES MD [facility] RAD R93.2 ABN PET SCAN OF LIVER [id number] 10/28/2017 07:15:00 10/28/2017 23:59:59 CLS Outpatient AURE JONES MD [facility] RAD R93.2 ABN PET SCAN OF LIVER [id number] 10/24/2017 11:07:00 10/24/2017 16:57:00 DIS Outpatient KIKI ROWE MD [facility] ENDO PERSONAL HX MELANOMA /ABNORMAL PET SCAN/SCREENING [id number] 10/21/2017 09:45:00 10/21/2017 09:57:00 DIS Outpatient KIKI ROWE MD [facility] PREOP COLONOSCOPY [id number] 10/19/2017 11:50:00 10/19/2017 23:59:59 CLS Preadmit AURE JONES MD [facility] RAD R29.91 ABN LEG FINDING [id number] 10/18/2017 08:25:00 10/18/2017 23:59:59 CLS Outpatient KIKI ROWE MD [facility] RAD MELANOMA LT FOREARM METASTATIC LYMPH NODULES [id number] 10/07/2017 07:18:00 10/07/2017 15:37:00 DIS Outpatient KIKI ROWE MD [facility] SDC MELANOMA LEFT FOREARM [id number] 10/06/2017 07:47:00 10/06/2017 23:59:59 CLS Outpatient KIKI ROWE MD [facility] RAD NODED NODULE LT THYROID [id number] 10/05/2017 05:33:00 10/05/2017 12:49:00 DIS Outpatient KIKI ROWE MD [facility] PREOP MELANOMA LEFT FOREARM [id number] 09/30/2017 07:46:00 09/30/2017 23:59:59 CLS Outpatient AURE JONES MD [facility] RAD MELANOMA [id number] 05/04/2017 11:21:00 05/04/2017 19:28:00 DIS Outpatient TIERRA MARIN MD [facility] CATH ABN STRESS TEST, HTN [id number] 04/27/2017 06:53:00 04/27/2017 23:59:59 CLS Outpatient TIERRA MARIN MD [facility] CARD HYPERTENSIVE DISORDER I10 [id number] 11/24/2016 07:33:00 11/24/2016 23:59:59 CLS Outpatient TIERRA MARIN MD [facility] CARD I10 HYPERTENSIVE DISORDER [id number] 11/16/2016 07:22:00 11/16/2016 23:59:59 CLS Outpatient TIERRA MARIN MD [facility] RAD I10 HYPERTENSIVE DISORDER [id number] 06/10/2016 06:01:00 06/10/2016 08:55:00 DIS Emergency TERRY HENRY MD [facility] ER CP [id number] 10/01/2015 10:45:00 12/23/2015 00:01:00 DIS Outpatient KATELYNN SALAS MD [facility] ONC [id number] 11/10/2015 10:12:00 11/10/2015 23:59:59 CLS Outpatient FRANCISCO LUNA MD [facility] HH POSSIBLE UTI [id number] 10/21/2015 13:20:00 10/28/2015 12:38:00 DIS Inpatient DANNA LAWS MD [facility] IRF IRF [id number] 10/17/2015 22:34:00 10/21/2015 13:28:00 DIS Inpatient JYOTHI NEWELL MD [facility] 4TH RLL PNEUMONIA [id number] 10/16/2015 08:08:00 10/16/2015 14:30:00 DIS Outpatient JYOTHI NEWELL MD [facility] SDC RIGHT INGUINAL HERNIA [id number] 04/16/2015 10:38:00 07/08/2015 00:01:00 DIS Outpatient KATELYNN SALAS MD [facility] ONC [id number] 10/16/2014 10:44:00 10/22/2014 00:01:00 DIS Outpatient KATELYNN SALAS MD [facility] ONC [id number] 01/07/2014 12:54:00 03/24/2014 00:01:00 DIS Outpatient KATELYNN SALAS MD [facility] ONC [id number] 07/09/2013 13:25:00 09/30/2013 00:01:00 DIS Outpatient KATELYNN SALAS MD [facility] ONC [id number] 01/22/2013 13:57:00 04/10/2013 00:01:00 DIS Outpatient KATELYNN SALAS MD [facility] ONC [id number] 02/13/2013 16:16:00 02/13/2013 23:59:59 CLS Outpatient [id number] 05/22/2018 09:45:00 PEN Preadmit XUN MD, AJ [facility] RAD MARÍA MELANOMA LVL 4 [id number] 05/19/2018 14:13:00 ACT Emergency ELAINE JIMENEZ, TERRY Weinstein [facility] ER WEAK [id number] 05/18/2018 14:26:00 ACT Outpatient LASHONDA LUTHER APRN [facility] RAD PAIN R LOWER ABD TO GROIN, PREVIOUS HERNIA SURGERY [id number] 05/10/2018 09:51:00 Document Registration [id number] 07/13/2012 11:35:00 Document Registration [id number] 03/14/2012 09:09:00 Document Registration [id number] 01/19/2012 09:59:00 Document Registration [id number] 01/12/2012 09:51:00 Document Registration [id number] 07/20/2011 13:00:00 Document Registration [id number] 07/20/2011 10:39:00 Document Registration [id number] 04/20/2011 12:55:00 Document Registration [id number] 04/06/2011 14:07:00 Document Registration [id number] 12/08/2010 12:28:00 Document Registration [id number] 12/07/2010 12:41:00 Document Registration [id number] 08/26/2010 08:33:00 Document Registration [id number] 12/16/2009 17:38:00 Document Registration [id number] 04/09/2015 10:56:12 ACT Document Registration
--- NOTE | 2018-05-19 15:45 | ED General ---
General Chief Complaint: General Problems/Pain Stated Complaint: WEAK Nursing Triage Note: PATIENT BROUGHT TO ER VIA [facility] FROM HOME WITH COMPLAINT OF UNABLE TO AMBULATE. PATIENT IS AWAKE AND ALERT X 4, STATING HE HAS BEEN HAVING DIFFICULTY WITH AMBULATING X 2 WEEKS. HE STATES HE HAS BEEN GETTING CHEMO TREATMENTS FOR MELANOMA WITH LAST CHEMO BEING 9 WEEKS AGO. HE WAS RECENTLY HOSPITALIZED FOR WEAKNESS. HE STATES THE WEAKNESS HAS PROGRESSIVELY GOTTEN WORSE AND TODAY WAS UNABLE TO STAND. HE HAS A CT SCAN SCHEDULED FOR TUESDAY OF ABDOMEN AND AN ECHO SCHEDULED IN JUNE. HE IS ALSO COMPLAINING OF BILATERAL LOWER LEG SWELLING AND STATES THAT HE HAS BEEN SEEING HIS PCP FOR THIS BUT DOES NOT KNOW WHAT IS CAUSING THE SWELLING. Nursing Sepsis Screen: No Definite Risk Source of Information: Patient, Family Exam Limitations: No Limitations History of Present Illness Date Seen by Provider: May 19, 2018 Time Seen by Provider: 16:00 Initial Comments To ER with general weakness. This has been progressive for the past few weeks, most significant over the past one week. Today he was unable to get up from the breakfast table because he was so weak. He lives at home by himself. He denies any pain shortness of breath or dyspnea on exertion. Timing/Duration: Getting Worse Severity: Moderate Allergies and Home Medications Allergies Coded Allergies: No Known Drug Allergies (Unverified , 11/09/17) Home Medications Amlodipine Besylate 10 Mg Tablet, 10 MG PO DAILY, (Reported) Aspirin 81 Mg Tablet.dr, 81 MG PO DAILY, (Reported) Celecoxib 200 Mg Capsule, 200 MG PO DAILY, (Reported) Cetirizine HCl 10 Mg Tablet, 10 MG PO DAILY, (Reported) Docusate Sodium 100 Mg Capsule, 200 MG PO DAILY, (Reported) TAKES 2 (100MG) CAPSULES Famotidine 20 Mg Tablet, 20 MG PO BID Prescribed by: DANNA LAWS on 04/04/18 1529 Fish Oil/Dha/Epa 1 Each Capsule, 2,400 MG PO DAILY, (Reported) Lisinopril 20 Mg Tablet, 20 MG PO HS, (Reported) Nebivolol HCl 5 Mg Tablet, 5 MG PO DAILY Prescribed by: DANNA LAWS on 04/04/18 1529 Polyethylene Glycol 3350 17 Gm Powd.pack, 17 GM PO DAILY, (Reported) Patient Home Medication List Home Medication List Reviewed: Yes Review of Systems Review of Systems Constitutional: see HPI, weakness EENTM: see HPI Respiratory: no symptoms reported Cardiovascular: no symptoms reported Genitourinary: see HPI Musculoskeletal: no symptoms reported Skin: no symptoms reported Psychiatric/Neurological: No Symptoms Reported Hematologic/Lymphatic: No Symptoms Reported Immunological/Allergic: no symptoms reported Past Gpkytud-Kaiwcd-Tlmcpl Hx Patient Social History Alcohol Use: Denies Use Recreational Drug Use: No Smoking Status: Former Smoker Type Used: Cigarettes Former Smoker, Quit: May 04, 1977 2nd Hand Smoke Exposure: No Recent Foreign Travel: No Contact w/Someone Who Travel: No Recent Infectious Disease Expo: No Recent Hopitalizations: Yes (4TH MEDICAL) Physical Abuse: No Sexual Abuse: No Mistreated: No Fear: No Immunizations Up To Date Tetanus Booster (TDap): Unknown Date of Pneumonia Vaccine: Apr 19, 2016 Date of Influenza Vaccine: Mar 24, 2018 Seasonal Allergies Seasonal Allergies: Yes Past Medical History Surgeries: Yes (inguinal hernia, LAMINECTOMY, rotor cuff, SKIN LESION OFF ELBOW) Prostatectomy Respiratory: No Cardiac: Yes Hypertension Neurological: No Reproductive Disorders: No Sexually Transmitted Disease: No HIV/AIDS: No Genitourinary: Yes Prostate Problems Gastrointestinal: Yes Chronic Constipation Musculoskeletal: Yes Degenerate Disk Disease, Arthritis Endocrine: No HEENT: Yes Cataract Loss of Vision: Denies Hearing Impairment: Denies Cancer: Yes Bladder, Prostate, Melanoma Did You Recieve Any Treatments: Yes What Type of Treatment Did You: Chemotherapy, Radiation, Surgical Intervention Psychosocial: No Integumentary: No Blood Disorders: No Adverse Reaction/Blood Tranf: No (N/A) Family Medical History No Pertinent Family Hx Physical Exam Vital Signs Vital Signs - First Documented 05/19/18 14:24 Temp 99.0 Pulse 64 Resp 16 B/P (MAP) 132/65 (87) Pulse Ox 97 O2 Delivery Room Air Capillary Refill : Less Than 3 Seconds Height, Weight, BMI Height: 5'9.00" Weight: 186lbs. 6.0oz. 84.415342hm; 26.0 BMI Method:Stated General Appearance: No Apparent Distress, WD/WN Eyes: Bilateral Eye Normal Inspection, Bilateral Eye PERRL, Bilateral Eye EOMI Neck: Full Range of Motion, Normal Inspection Respiratory: Normal Breath Sounds, No Accessory Muscle Use, No Respiratory Distress Cardiovascular: Regular Rate, Rhythm, Normal Peripheral Pulses Gastrointestinal: Normal Bowel Sounds, Non Tender, Soft Extremity: Normal Capillary Refill, Normal Inspection, Pedal Edema (3+ pitting to BLE) Neurologic/Psychiatric: Alert, Oriented x3 Skin: Normal Color, Warm/Dry Progress/Results/Core Measures Suspected Sepsis Recent Fever Within 48 Hours: No Infection Criteria Present: None New/Unexplained Altered Menta: No Sepsis Screen: No Definite Risk SIRS Temperature:99.0 Pulse: 64 Respiratory Rate: 16 Laboratory Tests 05/19/18 15:40: White Blood Count 5.6 Blood Pressure 132 /65 Mean: 87 Laboratory Tests 05/19/18 15:40: Creatinine 0.62, Platelet Count 278, Total Bilirubin 0.8 Results/Orders Lab Results Laboratory Tests Test 05/19/18 15:40 05/19/18 16:30 Range/Units White Blood Count 5.6 4.3-11.0 10^3/uL Red Blood Count 3.59 L 4.35-5.85 10^6/uL Hemoglobin 10.2 L 13.3-17.7 G/DL Hematocrit 31 L 40-54 % Mean Corpuscular Volume 86 80-99 FL Mean Corpuscular Hemoglobin 28 25-34 PG Mean Corpuscular Hemoglobin Concent 33 32-36 G/DL Red Cell Distribution Width 13.9 10.0-14.5 % Platelet Count 278 130-400 10^3/uL Mean Platelet Volume 9.5 7.4-10.4 FL Neutrophils (%) (Auto) 42 42-75 % Lymphocytes (%) (Auto) 29 12-44 % Monocytes (%) (Auto) 8 0-12 % Eosinophils (%) (Auto) 20 H 0-10 % Basophils (%) (Auto) 1 0-10 % Neutrophils # (Auto) 2.4 1.8-7.8 X 10^3 Lymphocytes # (Auto) 1.6 1.0-4.0 X 10^3 Monocytes # (Auto) 0.5 0.0-1.0 X 10^3 Eosinophils # (Auto) 1.1 H 0.0-0.3 10^3/uL Basophils # (Auto) 0.1 0.0-0.1 10^3/uL Neutrophils % (Manual) 46 % Lymphocytes % (Manual) 33 % Monocytes % (Manual) 3 % Eosinophils % (Manual) 18 % Basophils % (Manual) 0 % Band Neutrophils 0 % Blood Morphology Comment NORMAL Sodium Level 137 135-145 MMOL/L Potassium Level 3.4 L 3.6-5.0 MMOL/L Chloride Level 104 98-107 MMOL/L Carbon Dioxide Level 25 21-32 MMOL/L Anion Gap 8 5-14 MMOL/L Blood Urea Nitrogen 13 7-18 MG/DL Creatinine 0.62 0.60-1.30 MG/DL Estimat Glomerular Filtration Rate > 60 BUN/Creatinine Ratio 21 Glucose Level 81 70-105 MG/DL Calcium Level 9.3 8.5-10.1 MG/DL Corrected Calcium 9.8 8.5-10.1 MG/DL Total Bilirubin 0.8 0.1-1.0 MG/DL Aspartate Amino Transf (AST/SGOT) 28 5-34 U/L Alanine Aminotransferase (ALT/SGPT) 16 0-55 U/L Alkaline Phosphatase 51 40-136 U/L Troponin I < 0.30 <0.30 NG/ML B-Type Natriuretic Peptide 149.5 H <100.0 PG/ML Total Protein 6.1 L 6.4-8.2 GM/DL Albumin 3.4 3.2-4.5 GM/DL Urine Color YELLOW Urine Clarity CLEAR Urine pH 5 5-9 Urine Specific [place] 1.020 1.016-1.022 Urine Protein NEGATIVE NEGATIVE Urine Glucose (UA) NEGATIVE NEGATIVE Urine Ketones 1+ H NEGATIVE Urine Nitrite NEGATIVE NEGATIVE Urine Bilirubin NEGATIVE NEGATIVE Urine Urobilinogen NORMAL NORMAL MG/DL Urine Leukocyte Esterase NEGATIVE NEGATIVE Urine RBC (Auto) NEGATIVE NEGATIVE Urine RBC NONE /HPF Urine WBC 0-2 /HPF Urine Crystals NONE /LPF Urine Bacteria NEGATIVE /HPF Urine Casts NONE /LPF Urine Mucus SMALL H /LPF Urine Culture Indicated NO My Orders Orders - REJI CHONG APRN Cbc With Automated Diff (05/19/18 15:20) Comprehensive Metabolic Panel (05/19/18 15:20) Ua Culture If Indicated (05/19/18 15:20) BNP (05/19/18 15:20) Troponin I (05/19/18 15:20) Chest 1 View, Ap/Pa Only (05/19/18 15:20) Ekg Tracing (05/19/18 15:20) Iv Heplock-Insert (Order) (05/19/18 15:20) Manual Differential (05/19/18 15:40) Ct Abdomen/Pelvis W (05/19/18 17:00) Iohexol Injection (Omnipaque 350 Mg/Ml 1 (05/19/18 17:15) Contrast Received (Contrast Received) (05/19/18 17:15) Sodium Chloride Flush (Catheter Flush Sy (05/19/18 17:15) Ns (Ivpb) (Sodium Chloride 0.9%) (05/19/18 17:15) Medications Given in ED Current Medications Medications Dose Ordered Sig/Cliff Route Start Time Stop Time Status Last Admin Dose Admin Iohexol 100 ml ONCE ONCE IV 05/19/18 17:15 05/19/18 17:16 DC 05/19/18 17:30 100 ML Sodium Chloride 10 ml NEEDED PRN IV 05/19/18 17:15 05/19/18 17:31 10 ML Sodium Chloride 250 ml ONCE ONCE IV 05/19/18 17:15 05/19/18 17:16 DC 05/19/18 17:31 80 ML Vital Signs/I&O 05/19/18 14:24 Temp 99.0 Pulse 64 Resp 16 B/P (MAP) 132/65 (87) Pulse Ox 97 O2 Delivery Room Air Capillary Refill : Less Than 3 Seconds Blood Pressure Mean: 87 Diagnostic Imaging Diagonstic Imaging: Xray Plain Films/CT/US/NM/MRI: chest Comments NAME: SELINA CRANES [facility] REC#: [id number] PT STATUS: REG ER : 1940 PHYSICIAN: REJI CHONG APRN ADMIT DATE: 05/19/18/ER Signed Date of Exam:05/19/18 CHEST 1 VIEW, AP/PA ONLY Indication: New onset weakness Portable chest 4:26 PM Right IJ Port-A-Cath tip projects over the SVC. Heart size and pulmonary vascular normal. Lungs are clear. There is no effusion or pneumothorax. Impression: No acute abnormalities in the chest Dictated by: Dictated on workstation # [id number] Dict: 05/19/18 1634 Trans: 05/19/18 1635 TB [id number] Interpreted by: TERRY HICKEY MD Electronically signed by: TERRY HICKEY MD 05/19/18 1635 Departure Communication (Admissions) I spoke with Dr. Doan who agrees that we do not have any admission criteria unfortunately. We will discharge the patient to home, his son and daughter-in- law are present. Impression Primary Impression: General weakness Disposition: 01 HOME, SELF-CARE Condition: Stable Departure-Patient Inst. Decision time for Depature: 18:16 Referrals: RADHA BERNAL MD (PCP/Family) Primary Care Physician Patient Instructions: Generalized Weakness Add. Discharge Instructions: 1. REturn to ER for any concerns 2. Call Dr Bernal on Tuesday for an appointment to be seen and discuss options. All discharge instructions reviewed with patient and/or family. Voiced understanding. Copy Copies To 1: RADHA BERNAL MD; AJ CUBA MD, PETER J APRN May 19, 2018 15:45
[2018-05-19 15:53] LABS: BASOPHILS # (AUTO) 0.1 10^3/uL (0.0-0.1); BASOPHILS % (AUTO) 1 % (0-10); EOSINOPHILS # (AUTO) 1.1 10^3/uL (0.0-0.3); EOSINOPHILS % (AUTO) 20 % (0-10); HEMATOCRIT 31 % (40-54); HEMOGLOBIN 10.2 G/DL (13.3-17.7); LYMPHOCYTES # (AUTO) 1.6 X 10^3 (1.0-4.0); LYMPHOCYTES % (AUTO) 29 % (12-44); MEAN CORPUSCULAR HEMOGLOBIN 28 PG (25-34); MEAN CORPUSCULAR HGB CONC 33 G/DL (32-36); MEAN CORPUSCULAR VOLUME 86 FL (80-99); MEAN PLATELET VOLUME 9.5 FL (7.4-10.4); MONOCYTES # (AUTO) 0.5 X 10^3 (0.0-1.0); MONOCYTES % (AUTO) 8 % (0-12); NEUTROPHILS # (AUTO) 2.4 X 10^3 (1.8-7.8); NEUTROPHILS % (AUTO) 42 % (42-75); PLATELET COUNT 278 10^3/uL (130-400); RED BLOOD COUNT 3.59 10^6/uL (4.35-5.85); RED CELL DISTRIBUTION WIDTH 13.9 % (10.0-14.5); WHITE BLOOD COUNT 5.6 10^3/uL (4.3-11.0)
[2018-05-19 16:16] LABS: ALANINE AMINOTRANSFERASE 16 U/L (0-55); ALBUMIN 3.4 GM/DL (3.2-4.5); ALKALINE PHOSPHATASE 51 U/L (40-136); BILIRUBIN,TOTAL 0.8 MG/DL (0.1-1.0); BUN/CREATININE RATIO 21; CALCIUM 9.3 MG/DL (8.5-10.1); CARBON DIOXIDE 25 MMOL/L (21-32); CHLORIDE 104 MMOL/L (98-107); CREATININE SERUM 0.62 MG/DL (0.60-1.30); GFR ESTIMATED > 60; GLUCOSE 81 MG/DL (70-105); POTASSIUM 3.4 MMOL/L (3.6-5.0); SODIUM 137 MMOL/L (135-145); TOTAL PROTEIN 6.1 GM/DL (6.4-8.2)
[2018-05-19 16:23] LABS: BAND NEUTROPHILS 0 %; BASOPHILS % (MANUAL) 0 %; EOSINOPHILS % (MANUAL) 18 %; LYMPHOCYTES % (MANUAL) 33 %; MONOCYTES % (MANUAL) 3 %; NEUTROPHILS % (MANUAL) 46 %; RBC MORPH NORMAL
--- NOTE | 2018-05-19 16:37 | Diagnostic Imaging Report ---
Indication: New onset weakness Portable chest 4:26 PM Right IJ Port-A-Cath tip projects over the SVC. Heart size and pulmonary vascular normal. Lungs are clear. There is no effusion or pneumothorax. Impression: No acute abnormalities in the chest Dictated by: Dictated on workstation # [id number]
[2018-05-19 16:42] LABS: BILIRUBIN,URINE NEGATIVE (NEGATIVE); CLARITY,URINE CLEAR; COLOR,URINE YELLOW; GLUCOSE, URINE (UA) NEGATIVE (NEGATIVE); KETONES,URINE 1+ (NEGATIVE); LEUKOCYTE ESTERASE ,URINE NEGATIVE (NEGATIVE); NITRITE,URINE NEGATIVE (NEGATIVE); PH,URINE 5 (5-9); PROTEIN,URINE NEGATIVE (NEGATIVE); UROBILINOGEN,URINE NORMAL (NORMAL)
[2018-05-19 17:09] LABS: BACTERIA,URINE NEGATIVE /HPF; WBC,URINE 0-2 /HPF
[2018-05-19] MEDS ORDERED: RECEIVED CONTRAST (Hold Metformin) IV SCH (17:15)
[2018-05-19] MEDS ORDERED: CATHETER FLUSH 10 ML SYR IV PRN (17:15)
[2018-05-19] MEDS ORDERED: IOHEXOL 350 MG/ML 100 ML (OMNIPAQUE 350) VIAL IV ONE (17:15)
[2018-05-19] MEDS ORDERED: NS 250 ML (IVPB) BAG IV ONE (17:15)
--- NOTE | 2018-05-19 17:55 | Diagnostic Imaging Report ---
PROCEDURE: CT abdomen and pelvis with contrast. TECHNIQUE: Multiple contiguous axial images were obtained through the abdomen and pelvis after administration of intravenous contrast. INDICATION: Increased weakness for two weeks with bilateral leg swelling. History of malignant melanoma, on chemotherapy. COMPARISON: 09/30/2017. FINDINGS: There are minimal bilateral pleural effusions with associated atelectasis. Calcified granuloma is seen at the left lung base. The heart is normal in size. There is no pericardial effusion. A small hiatal hernia is present. There is a stable small hepatic cyst measuring 1.5 cm in greatest dimension in the medial right liver. The spleen appears normal. The pancreas is normal. The adrenal glands appear normal. The kidneys are normal. There is no hydronephrosis. There is calcific atherosclerosis in the aorta without aneurysm or significant stenosis seen. No retroperitoneal adenopathy is seen. No significant mesenteric adenopathy is seen. The bowel loops are nondistended without evidence of obstruction. There are postoperative changes seen at the cecum. No significant free fluid or free air is seen. No fluid collections are identified. There is diverticulosis of the sigmoid colon without diverticulitis seen. Multiple surgical clips are noted in the pelvis. The urinary bladder is moderately distended. There is posterior fusion of the lumbar spine with multilevel degenerative changes present. No hardware complication is seen. IMPRESSION: 1. Minimal bilateral pleural effusions. 2. No lymphadenopathy or evidence of metastatic disease. 3. Moderate distention of the urinary bladder. Dictated by: Dictated on workstation # [id number]
[2018-05-19] MEDS ORDERED: HEParin (CENTRAL IV FLUSH) 500 UNIT/5 ML SYR ONE (18:36)
[2018-05-19 18:47] VITALS: BP 137/90
== END 2018-05-19 18:55 | disposition home or self-care (01) ==
LOC: EDUNIT# 14:13 → ER 14:13
DX: R53.1 Weakness (principal); I10 Essential (primary) hypertension; Z85.46 Personal history of malignant neoplasm of prostate; Z85.820 Personal history of malignant melanoma of skin; Z92.21 Personal history of antineoplastic chemotherapy; Z85.51 Personal history of malignant neoplasm of bladder; Z79.82 Long term (current) use of aspirin; Z87.891 Personal history of nicotine dependence; Z87.19 Personal history of other diseases of the digestive system; Z98.890 Other specified postprocedural states; Z98.1 Arthrodesis status; Z90.79 Acquired absence of other genital organ(s)
CPT/HCPCS: 36415; 71045; 74177; 80053; 81000; 83880; 84484; 85007; 85027

== ENCOUNTER → 2018-05-22 | Outpatient (CLI) | payer MEDICARE, OTHER ==
[~2018-05-22] MED LIST changes: +IOHEXOL 350 MG/ML 100 ML (OMNIPAQUE 350) VIAL IV ONE; +NS 250 ML (IVPB) BAG IV ONE; +RECEIVED CONTRAST (Hold Metformin) IV SCH
--- NOTE | 2018-05-22 18:15 | Diagnostic Imaging Report ---
PROCEDURE: CT chest with contrast only. TECHNIQUE: Multiple contiguous axial images were obtained through the chest after administration of intravenous contrast. INDICATION: Melanoma. FINDINGS: The PET/CT exam performed on 10/18/2017 suggested a metastatic lymph node in the left supraclavicular and left axillary regions. The lymph node in the left supraclavicular region seen on the previous study is not clearly visualized on this exam. The left axillary adenopathy has also resolved. However, the nodes in the right axilla do seem somewhat more prominent than on the prior exam. The largest node in this area now measures 0.9 x 1.6 cm. Furthermore, there is now a 1.1 x 2.2 cm aorticopulmonary window node. This was not present on the prior exam. The pretracheal nodes on the right seen previously are also slightly larger on this exam. There is no hilar adenopathy identified. However, there is now an 8.4 mm parenchymal opacity in the left upper lobe. There is also a similar appearing 9.0 mm parenchymal density along the periphery of the right lower lobe. Neither of these findings were present on the prior exam and consequently worrisome for neoplastic disease. There is no other parenchymal lung mass identified, but there is now a vague 1.9 x 2.3 cm opacity in the left upper lobe and a similar appearing but smaller 1.0 x 1.5 cm density in the right upper lobe. These abnormal parenchymal densities could be secondary to pneumonia/atelectasis. It would be less likely that they are neoplastic in nature. There is no other acute abnormality identified. The small bilateral pleural effusions seen on the recent CT abdomen/pelvis exam of 05/19/2018 are again evident. The heart is stable in size. The aorta is not abnormally dilated. There is no sign of a dissection. There is no defect within the pulmonary arteries to indicate a pulmonary embolus. The thyroid gland where visualized is unremarkable. There is no obvious breast mass. The sections through the upper abdomen fail to show any sign of an acute abnormality. There is severe degenerative disc and bony disease throughout the thoracic spine. IMPRESSION: 1. The appearance of the chest has worsened since the prior study as small poorly defined parenchymal opacities have developed in the left upper lobe and in the periphery of the right lung base. There has also been slight increase in the mediastinal adenopathy and the right axillary adenopathy. These findings are worrisome for neoplasm. If further study is desired, then repeat PET/CT exam would be recommended. 2. The vague areas of increased density in each upper lobe are of uncertain etiology. These could be secondary to pneumonia/atelectasis or even to neoplasm. These could also be further evaluated by PET/CT. 3. There is no acute cardiopulmonary abnormality noted otherwise. There are persistent small bilateral pleural effusions. Dictated by: Dictated on workstation # [id number]
== END ==
LOC: RAD 09:27
PROVIDERS: ATTEND Internal Medicine Hematology & Oncology
DX: C43.9 Malignant melanoma of skin, unspecified (principal); J90 Pleural effusion, not elsewhere classified
CPT/HCPCS: 71260

== ENCOUNTER 2018-06-01 09:45 | Inpatient (IN) | payer MEDICARE, OTHER ==
[~2018-06-01] VITALS: Ht 180.3 cm; Wt 76.7 kg
[2018-06-01 09:40] VITALS: BP 108/63
[~2018-06-01 09:45] MED LIST changes: -IOHEXOL 350 MG/ML 100 ML (OMNIPAQUE 350) VIAL IV ONE; -NS 250 ML (IVPB) BAG IV ONE; -RECEIVED CONTRAST (Hold Metformin) IV SCH
[2018-06-01 10:23] VITALS: BP 108/63
--- NOTE | 2018-06-01 10:58 | Physical Therapy Evaluation ---
PT Evaluation-General Medical Diagnosis Admission Date Jun 01, 2018 at 09:45 Medical Diagnosis: general debility Onset Date: Jun 01, 2018 Therapy Diagnosis Therapy Diagnosis: impaired mobility, strength, endurance Height/Weight Height (Feet): 5 Height (Inches): 11.00 Weight (Pounds): 175 Weight (Ounces): 0.0 Precautions Precautions/Isolations: Fall Prevention, Standard Precautions Referral Physician: Simon Reason for Referral: Evaluation/Treatment Medical History Pertinent Medical History: Arthritis, Back Injury, HTN Social History Home: Single Level Current Living Status: Alone Entry Into Home: Level Entry Prior/Core FIM Prior Level of Function Functional [place] Measure 0=Not Assessed/NA 4=Minimal Assistance 1=Total Assistance 5=Supervision or Setup 2=Maximal Assistance 6=Modified [place] 3=Moderate Assistance 7=Complete [place] IRFPAI Quality Coding Scale 6 Independent with activity with or without an assistive device 5 Patient requires set up or clean up by helper. Patient completes activity by themselves 4 Supervision or touching assist (CGA). [place] provide cues , steadying assist 3 The helper provides less than half the effort to complete the activity 2 The helper provides more than half the effort to complete the activity 1 Dependent. The helper does all the effort to complete an activity 7 Patient refused to complete or attempt activity 9 The patient did not perform the activity before the current illness or injury 88 Not attempted due to Medical conditions or safety concerns Functional Abilities and Goals 3. Independent: Patient completed the activities by him/herself, with or without an assistive device, with no assistance from a helper. 2. Needed Some Help: Patient needed partial assistance from another person to complete activities. 1. Dependent: A helper completed the activities for the patient. 8. Unknown: 9. Not Applicable: Bed Mobility: 6 Transfers (B,C,W/C) (FIM): 6 Gait: 6 Indoor Mobility (Ambulation): Independent Stairs: Not [place]lical[place] Prior Devices Use: Walker Prior Device Use: rolling walker, cane, lift chair PT Evaluation-Current Subjective Patient in recliner pre tx, agrees to PT, no complaints of pain. Pt/Family Goals "to get his whole body stronger, not only his legs" Objective Patient Orientation: Person, Place, Situation ROM/Strength ROM Lower Extremities WNL Strenght Lower Extremities right lower extremity (hip flexion 2/5, knee flexion 2/5, knee extension 2/5, dorsiflexion 3/5), left lower extremity (hip flexion 2/5, knee flexion 3/5, knee extension 3/5, dorsiflexion 3+/5) Integumentary/Posture Integumentary bilateral lower extremity swelling Neuromuscular (Tone, Coordination, Reflexes) NT Sensory Vision: Wears Glasses Hearing: Functional Sensation Right Lower Extremit: Impaired Sensation Left Lower Extremity: Impaired Sensation Lower Extremities Patient has impaired light touch sensation from the knees down. Transfers Functional [place] Measure 0=Not Assessed/NA 4=Minimal Assistance 1=Total Assistance 5=Supervision or Setup 2=Maximal Assistance 6=Modified [place] 3=Moderate Assistance 7=Complete [place] IRFPAI Quality Coding Scale 6 Independent with activity with or without an assistive device 5 Patient requires set up or clean up by helper. Patient completes activity by themselves 4 Supervision or touching assist (CGA). [place] provide cues , steadying assist 3 The helper provides less than half the effort to complete the activity 2 The helper provides more than half the effort to complete the activity 1 Dependent. The helper does all the effort to complete an activity 7 Patient refused to complete or attempt activity 9 The patient did not perform the activity before the current illness or injury 88 Not attempted due to Medical conditions or safety concerns Transfers (B, C, W/C) (FIM): 3 Scootin Rollin Roll Left to Right (QC): 3 Supine to/from Sit: 3 Sit to/from Stand: 4 Sit to Lying (QC): 2 Lying to Sitting/Side of Bed(Q: 2 Sit to Stand (QC): 3 Chair/[id number]-qr-Xchdq Xfer(QC): 4 Car Transfer (QC): 2 Patient needs min assist for rolling, mod assist for supine <-> sit due to needing help with both legs, min assist for sit to stand, CGA for transfers, mod assist for car transfer. Cues for positioning and safety. Gait Does the Patient Walk?: Yes Mode of Locomotion: Walk Anticipated Mode of Locomotion: Walk Gait (FIM): 2 Walk 10 feet (QC): 4 Walk 50 ft with 2 Turns(QC): 4 Walking 10ft/uneven surface-QC: 4 Distance: 100', 50'x2 Gait Level of Assist: 4 Gait Persons Needed: 1 Gait Assistive Device: FWW Comments/Gait Description Patient can ambulate 100' with a rolling walker with CGA (including 50' with at least 2 turns of 90 degrees and 10' over an uneven surface). Patient ambulates slowly but steady, no LOB or knee buckling. Wheelchair Training Does the Pt Use a Wheelchair?: No Stairs If not tested on admit;explain Going up and down 1 step was attempted but as soon as patient saw the step he refused, he says he cannot step up on a step that is more than one to two inches tall. Balance Sitting Static: Normal Sitting Dynamic: Normal Standing Static: Good Standing Dynamic: Good Treatment supine exercises x20 (AP, QS, GS, HS, SLR) Assessment/Needs Patient has impaired mobility, strength, endurance. He has significant weakness in his legs. He is at risk for a fall. Rehab Potential: Fair PT Short Term Goals Short Term Goals Time Frame: Jun 08, 2018 Transfers (B,C,W/C) (FIM): 4 Gait (FIM): 4 Gait Distance Comment: 150' Gait Level of Assist: 4 Gait Assistive Device: FWW PT Fpc Goals Professor Of Literacy Goals PT Fpc Goals Time Frame: Jun 22, 2018 Transfers (B,C,W/C) (FIM): 5 Sit to Lying (QC): 4 Lying-Sitting on Side/Bed(QC): 4 Sit to Stand (QC): 4 Rollin Roll Left to Right (QC): 4 Chair/[id number]-Tsfmq Xfer(QC): 4 Car Transfer (QC): 4 Gait (FIM): 5 Distance: 200' Walk 10 feet (QC): 4 Walk 10ft-Uneven Surface(QC): 4 Walk 50ft with 2 Turns (QC): 4 Walk 150 ft (QC): 4 Gait Level of Assist: 5 Gait Assistive Device: FWW Stairs (FIM): 1 # of Steps: 1 1 Step (curb) (QC): 4 Stairs Level Of Assist: 4 PT Plan Problem List Problem List: Activity Tolerance, Functional Strength, Safety, Balance, Gait, Transfer, Bed Mobility Treatment/Plan Treatment Plan: Continue Plan of Care Treatment Plan: Bed Mobility, Education, Functional Activity Abdulkadir, Functional Strength, Group Therapy, Gait, Safety, Therapeutic Exercise, Transfers Treatment Duration: Jun 22, 2018 Frequency: At least 5 of 7 days/Wk (IRF) Estimated Hrs Per Day: 1.5 hours per day Patient and/or Family Agrees t: Yes Safety Risks/Education Patient Education: Gait Training, Transfer Techniques, Correct Positioning, Safety Issues Teaching Recipient: Patient Teaching Methods: Demonstration, Discussion Response to Teaching: Reinforcement Needed Discharge Recommendations Plan Patient will perform bed mobility and transfer training, balance and endurance training, functional strengthening, stair training, gait training, and education , to improve functional mobility and independence at home. Therapy D/C Recommendations: Home w/ Family Support, Fdc (TCU/NH) Time/GCodes Time In: 1000 Time Out: 1100 Total Billed Treatment 1 visit EVM 30' GT 15' EX 15' GREGORIA TREVIÑO PT Jun 01, 2018 10:58
--- NOTE | 2018-06-01 12:56 | Occupational Therapy Eval ---
OT Evaluation-General/PLF Medical Diagnosis Admission Date Jun 01, 2018 at 09:45 Medical Diagnosis: general debility Onset Date: Jun 01, 2018 Therapy Diagnosis Therapy Diagnosis: decr selfcare, decr funct mob, decr act rowena, weakness Height/Weight Height (Feet): 5 Height (Inches): 11.00 Weight (Pounds): 175 Weight (Ounces): 0.0 Precautions Precautions/Isolations: Fall Prevention, Standard Precautions Referral Physician: Simon Referral Reason: Evaluation/Treatment Medical History Pertinent Medical History: Arthritis, Back Injury, HTN Additional Medical History Prostatectomy, neck and back surgeries, bilateral rotator cuff surgeries. Chronic constipation. DJD. Bladder and prostate cancer. Melanoma L forearm, with current immunotherapy Current History Admitted from home with decreased ability to care for himself. Pt denied falls. He anticipates chemo to resume within a month. Social History Home: Single Level Current Living Status: Alone Entry Into Home: Level Entry ADL-Prior Level of Function Functional [place] Measure 0=Not Assessed/NA 4=Minimal Assistance 1=Total Assistance 5=Supervision or Setup 2=Maximal Assistance 6=Modified [place] 3=Moderate Assistance 7=Complete [place] IRFPAI Quality Coding Scale 6 Independent with activity with or without an assistive device 5 Patient requires set up or clean up by helper. Patient completes activity by themselves 4 Supervision or touching assist (CGA). [place] provide cues , steadying assist 3 The helper provides less than half the effort to complete the activity 2 The helper provides more than half the effort to complete the activity 1 Dependent. The helper does all the effort to complete an activity 7 Patient refused to complete or attempt activity 9 The patient did not perform the activity before the current illness or injury 88 Not attempted due to Medical conditions or safety concerns Functional Abilities and Goals 3. Independent: Patient completed the activities by him/herself, with or without an assistive device, with no assistance from a helper. 2. Needed Some Help: Patient needed partial assistance from another person to complete activities. 1. Dependent: A helper completed the activities for the patient. 8. Unknown: 9. Not Applicable: ADL PLOF Comments He reported that he has as much trouble taking care of himself as he had when he was admitted to [facility] in March. Prior to his decline, he was able to take care of all of his basic self care needs. He does laundry, cleaning, a little cooking and has several acres he mows with riding mower. He also manages his meds and bills without help. 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 When he left [facility], he completed all ADLs at mod indep to independent level. Self Care: Independent Functional Cognition: Independent DME/Equipment: Grab Bars, Shower, Shower Hose Emergency Technician, Tall Toilet, Tub/Shower DME/Equipment Comments sliding doors on tub. Arms on toilet. Uses bulk sausage casing tier off, sock aid, long shoe horn, long handled sponge OT Current Status Subjective Pt seen in room, up in recliner, agreeable to OT. Pain reported 0/10 Appearance Alert, cooperative. Mental Status/Objective Patient Orientation: Person (unable to state year he was born), Place, Time, Situation Attachments: Other-See Comments (port) Current Glasses/Contacts: Yes Hearing Aids: No Dentures/Partials: No Hand Dominance: Right Upper Extremity ROM Grossly WFL bilat (shoulders limite to approx 80 degrees flex/abd. R middle and ring finger flexion contractures Upper Extremity Sensation Pt denies problems Upper Extremity Strength Grossly 4/5 bilat ADL-Treatment ADL-Current He needed min assist to get up from recliner and walked CGA, FWW to bathroom. Transferred on/off BSC over toilet with min assist. Managed clothing CGA except needed to sit to unbutton pants. Cues to keep closer to walker. Eating (FIM): 7 (Opened packages, cut up food, fed himself. Able to get a drink. No dentures) Eating (QC): 6 Transfers (B, C, W/C) (FIM): 4 (min assist sit to stand from recliner.) Toilet/Commode Transfer (FIM): 4 (Min assist on/off BSC over toilet, FWW) Toilet Transfer (QC): 3 Other Treatments Pt walked with CGA, FWW to gym. Completed 10 minutes bilat UE ex with arm bike set at 15W resistance, with a couple of brief recovery breaks. Walked back to room CGA, FWW and left up in recliner, all needs met, with warm blanket. Pt stated that he is always cold after the chemo. Education OT Patient Education: Modified ADL techniques, Purpose of tx/functional activities, Rehab process, Transfer techniques, Use of adapted equipment Teaching Recipient: Patient Teaching Methods: Demonstration, Discussion Response to Teaching: Verbalize Understanding, Return Demonstration, Reinforcement Needed OT Short Term Goals Short Term Goals Time Frame: Jun 08, 2018 Toilet/Commode Transfer(FIM): 5 (SBA) Additional Short Term Goals: 1-Demonstrate ADL Tasks, 2-Verbalize Understanding , 3-ImproveStrength/Abdulkadir 1=Demonstrate adherence to instructed precautions during ADL tasks. 2=Patient will verbalize/demonstrate understanding of assistive devices/ modifications for ADL. 3=Patient will improve strength/tolerance for activity to enable patient to perform ADL's. OT Snf Goals Snf Goals Time Frame: Jun 22, 2018 Eating (FIM): 7 Eating (QC): 6 Groomin Oral Hygiene (QC): 6 Bathing(FIM): 6 Shower/Bathe Self (QC): 6 Upper Body Dressing(FIM): 6 Upper Body Dressing (QC): 6 Lower Body Dressing(FIM): 6 Lower Body Dressing (QC): 6 On/Off Footwear (QC): 6 Toileting(FIM): 6 Toileting Hygiene (QC): 6 Toilet/Commode Transfer(FIM): 6 Toilet/Commode Transfer (QC): 6 Shower Transfer(FIM): 6 Additional Goals: 1-Demonstrate ADL Tasks, 2-Verbalize Understanding, 3- ImproveStrength/Abdulkadir 1=Demonstrate adherence to instructed precautions during ADL tasks. 2=Patient will verbalize/demonstrate understanding of assistive devices/ modifications for ADL. 3=Patient will improve strength/tolerance for activity to enable patient to perform ADL's. OT Education/Plan Problem List/Assessment Assessment: Decreased Activ Tolerance, Decreased UE Strength, Dependent Transfers, Impaired Bed Mobility, Impaired Self-Care Skills Pt would benefit from skilled OT to increase his independence in basic self care to allow him to safely return home Discharge Recommendations Plan/Recommendations: Continue POC Therapy D/C Recommendations: Home w/ Family Support, Occupational Therapy Home Care Treatment Plan/Plan of Care Treatment,Training & Education: Yes Patient would benefit from OT for education, treatment and training to promote independence in ADL's, mobility, safety and/or upper extremity function for ADL' s. Plan of Care: ADL Retraining, Functional Mobility, Group Exercise/Act as Ind ( education, exercise, socialization, functional activities, activiity toleance), UE Funct Exercise/Act, UE Neuromus Re-Ed/Coord, OTHER (energy conservation education/practce) Treatment Duration: Jun 22, 2018 Frequency: At least 5 of 7 days/Wk (IRF) Estimated Hrs Per Day: 1.5 hours per day Agreement: Yes Rehab Potential: Fair Time/GCodes Start Time: 11:00 Stop Time: 12:02 Total Time Billed (hr/min): 62 Billed Treatment Time visit, 20 minutes evaluation moderate intensity, 15 minutes ADL, 27 minutes exercise KWAN CASILLAS OT Jun 01, 2018 12:56
--- NOTE | 2018-06-01 13:35 | Occupational Ther Daily Note ---
OT Current Status-Daily Note Subjective Pt alert, finishing lunch in room. Pt agrees to therapy. No c/o pain at this time. Mental Status/Objective Patient Orientation: Person, Place, Time, Situation Functional [place] Measure 0=Not Assessed/NA 4=Minimal Assistance 1=Total Assistance 5=Supervision or Setup 2=Maximal Assistance 6=Modified [place] 3=Moderate Assistance 7=Complete [place] ADL-Treatment Functional [place] Measure 0=Not Assessed/NA 4=Minimal Assistance 1=Total Assistance 5=Supervision or Setup 2=Maximal Assistance 6=Modified [place] 3=Moderate Assistance 7=Complete [place] IRFPAI Quality Coding Scale 6 Independent with activity with or without an assistive device 5 Patient requires set up or clean up by helper. Patient completes activity by themselves 4 Supervision or touching assist (CGA). [place] provide cues , steadying assist 3 The helper provides less than half the effort to complete the activity 2 The helper provides more than half the effort to complete the activity 1 Dependent. The helper does all the effort to complete an activity 7 Patient refused to complete or attempt activity 9 The patient did not perform the activity before the current illness or injury 88 Not attempted due to Medical conditions or safety concerns Other Treatment Pt requires min A for sit to stand. Needs raised surfaces for transfers. Pt ambulated to therapy gym with SBA using FWW. Pt declined UE gross motor exercises. Fine motor exercises completed to increase dexterity, AROM and coordination for daily functional tasks. Resistive clothes pins completed 1x with each hand. Nut/bolt activity completed for bilateral hand coordination for ADLs. Pt takes increased time to complete tasks due to recovery breaks taken and slow methodical movements. PT took over care of pt in therapy gym. All needs met. OT Short Term Goals Short Term Goals Time Frame: Jun 08, 2018 Toilet/Commode Transfer(FIM): 5 (SBA) Additional Short Term Goals: 1-Demonstrate ADL Tasks, 2-Verbalize Understanding , 3-ImproveStrength/Abdulkadir 1=Demonstrate adherence to instructed precautions during ADL tasks. 2=Patient will verbalize/demonstrate understanding of assistive devices/ modifications for ADL. 3=Patient will improve strength/tolerance for activity to enable patient to perform ADL's. OT Sand Digger Goals Sand Digger Goals Time Frame: Jun 22, 2018 Eating (FIM): 7 Eating (QC): 6 Groomin Oral Hygiene (QC): 6 Bathing(FIM): 6 Shower/Bathe Self (QC): 6 Upper Body Dressing(FIM): 6 Upper Body Dressing (QC): 6 Lower Body Dressing(FIM): 6 Lower Body Dressing (QC): 6 On/Off Footwear (QC): 6 Toileting(FIM): 6 Toileting Hygiene (QC): 6 Toilet/Commode Transfer(FIM): 6 Toilet/Commode Transfer (QC): 6 Shower Transfer(FIM): 6 Comprehension(FIM): 6 Expression (FIM): 7 Social Interaction(FIM): 7 Problem Solving(FIM): 7 Memory(FIM): 7 Additional Goals: 1-Demonstrate ADL Tasks, 2-Verbalize Understanding, 3- ImproveStrength/Abdulkadir 1=Demonstrate adherence to instructed precautions during ADL tasks. 2=Patient will verbalize/demonstrate understanding of assistive devices/ modifications for ADL. 3=Patient will improve strength/tolerance for activity to enable patient to perform ADL's. OT Education/Plan Problem List/Assessment Pt would benefit from skilled OT to increase his independence in basic self care to allow him to safely return home Discharge Recommendations Plan/Recommendations: Continue POC Treatment Plan/Plan of Care Patient would benefit from OT for education, treatment and training to promote independence in ADL's, mobility, safety and/or upper extremity function for ADL' s. Plan of Care: ADL Retraining, Functional Mobility, Group Exercise/Act as Ind ( education, exercise, socialization, functional activities, activiity toleance), UE Funct Exercise/Act, UE Neuromus Re-Ed/Coord, OTHER (energy conservation education/practce) Treatment Duration: Jun 22, 2018 Frequency: At least 5 of 7 days/Wk (IRF) Estimated Hrs Per Day: 1.5 hours per day Agreement: Yes Rehab Potential: Fair Time/GCodes Start Time: 12:50 Stop Time: 13:20 Total Time Billed (hr/min): 30 Billed Treatment Time 1 visit-EX 2 (30 min) KRUPA WEI Jun 01, 2018 13:35
--- NOTE | 2018-06-01 13:51 | Physical Therapy Daily Note ---
PT Daily Note-Current Subjective Agreeable to PT. Likes to ride the Nu Step. Transfers Functional [place] Measure 0=Not Assessed/NA 4=Minimal Assistance 1=Total Assistance 5=Supervision or Setup 2=Maximal Assistance 6=Modified [place] 3=Moderate Assistance 7=Complete [place] IRFPAI Quality Coding Scale 6 Independent with activity with or without an assistive device 5 Patient requires set up or clean up by helper. Patient completes activity by themselves 4 Supervision or touching assist (CGA). [place] provide cues , steadying assist 3 The helper provides less than half the effort to complete the activity 2 The helper provides more than half the effort to complete the activity 1 Dependent. The helper does all the effort to complete an activity 7 Patient refused to complete or attempt activity 9 The patient did not perform the activity before the current illness or injury 88 Not attempted due to Medical conditions or safety concerns Transfers (B, C, W/C) (FIM): 4 Sit to/from Stand: 4 (skilled cues for hand placement and sequencing. ) Sit to stand several times throughout treatment. Pt requires min assist from standard surface heights. Gait Training Does the Patient Walk?: Yes Gait (FIM): 4 Distance (FIM): 3=150 ft Distance: 50 ft x 2; 150 ft x 1 Gait Assistive Device: FWW slow gait, forward flexed at hips and head down. Treatments Functional transfers, NuStep and gait Assessment Pt progressing. Tires easily. Cooperative. PT Short Term Goals Short Term Goals Time Frame: Jun 08, 2018 Gait (FIM): 4 Gait Distance Comment: 150' Gait Level of Assist: 4 Gait Assistive Device: FWW PT Custodial Goals Custodial Goals PT Superintendent [employer] Goals Time Frame: Jun 22, 2018 Transfers (B,C,W/C) (FIM): 5 Sit to Lying (QC): 4 Lying-Sitting on Side/Bed(QC): 4 Sit to Stand (QC): 4 Rollin Roll Left to Right (QC): 4 Chair/Fpj-yd-Wglns Xfer(QC): 4 Car Transfer (QC): 4 Gait (FIM): 5 Distance: 200' Walk 10 feet (QC): 4 Walk 10ft-Uneven Surface(QC): 4 Walk 50ft with 2 Turns (QC): 4 Walk 150 ft (QC): 4 Gait Level of Assist: 5 Gait Assistive Device: FWW Stairs (FIM): 1 # of Steps: 1 1 Step (curb) (QC): 4 Stairs Level Of Assist: 4 PT Plan Problem List Problem List: Activity Tolerance, Functional Strength, Safety, Balance, Gait, Transfer, Bed Mobility Treatment/Plan Treatment Plan: Continue Plan of Care Treatment Plan: Bed Mobility, Education, Functional Activity Abdulkadir, Functional Strength, Group Therapy, Gait, Safety, Therapeutic Exercise, Transfers Treatment Duration: Jun 22, 2018 Frequency: At least 5 of 7 days/Wk (IRF) Estimated Hrs Per Day: 1.5 hours per day Patient and/or Family Agrees t: Yes Safety Risks/Education Patient Education: Transfer Techniques, Safety Issues Teaching Recipient: Patient Teaching Methods: Demonstration, Discussion Response to Teaching: Reinforcement Needed Time/GCodes Time In: 1320 Time Out: 1350 Total Billed Treatment Time: 30 Total Billed Treatment visit EX 20 GT 10 KRUPA ACKERMAN PT Jun 01, 2018 13:51
--- NOTE | 2018-06-01 14:25 | ST Cognitive Linguistic Eval ---
Speech Evaluation-General Medical Diagnosis general debility Onset Date: Jun 01, 2018 Therapy Diagnosis Therapy Diagnosis: Cognitive-communication Precautions Precautions/Isolations: Fall Prevention, Standard Precautions Medical History Pertinent Medical History: Arthritis, Back Injury, HTN Reviewed History: Yes Social History Current Living Status: Alone Speech PLF-Current Status Prior Level of Function Patient lived alone prior to hospitalization. He was independent with his daily tasks. Subjective Patient pleasant and cooperative. Language Eval: Auditory Comprehends Simple Yes/No Ques: Functional Indent/Objects [place]: Functional Ident/Pics in [place]: Functional Follows 1-Step Commands: Functional Follows Complex Directions: Functional Follows General Conversations: Functional Language Eval: Verbal Language Completes Spontaneous Greeting: Functional Produces Auto, Serial Info: Functional Imitates Simple Words/Phrases: Functional Word Finding: Mild Requests Basic Needs: Functional States Basic Personal Info: Functional Expresses Complex Ideas: Functional Cognitive Patient Orientation Patient is oriented to self, place and time. Objective Cognitive Domain Attention: WNL Memory: Mild Problem Solving: Functional Executive Functions: WN Objective Formal/Standardized Tests [facility] Cognitive/communication Results Memory: 3:3, Delayed 2:3 with verbal cues Orientation: 3:3 Organization/sequencin:4 Problem solvin:4 Comparisons: 3:4 Auditory comprehension: 9/10 Oral Motor/Speech Production Within Functional Limits Impression Patient has very mild memory difficulties. Problem solving for daily needs is within functional limits. At this time patient is not recommended for skilled ST services. Communication/Social Cognition Comprehension: 7 Expression: 7 Social Interaction: 7 Problem Solvin Memory: 6 Speech Patient Assess Expression of Ideas/Wants: Expression (4) Understanding Verbal Content: Usually Understands (3) Brief Interview-Mental Status: Yes Repetition of Three Words: Three (3) Temporal Orientation: Year: Correct (3) Temporal Orientation: Month: Accurate within 5 days(2) Temporal Orientation: Day: Correct (1) Recall : Wear to say "Sock": Yes,after cueing (1) Recall : Color: Yes, after cueing (1) Recall : Bed: Yes,after cueing (1) Memory/Recall Ability: Current season, Location of own room, That he or she is in a hsp/hsp unit Speech Short Term Goals Short Term Goals Short Term Goals Patient will follow procedures while in rehab for safety at 90% with minimal cues. Speech Dehydrogenation Operator Head Goals Dehydrogenation Operator Head Goals Patient will be able to return home safely following his rehab. Comprehension: 6 Expression: 7 Social Interaction: 7 Problem Solvin Memory: 7 Speech-Plan Patient/Family Goals Patient/Family Goals: Patient plans to return home following rehab. Treatment Plan Speech Therapy Treatment Plan: Continue Plan of Care Patient is not recommended for skilled services at this time. Treatment Duration: Jun 01, 2018 Frequency: 1 time per week Estimated Hrs Per Day: .25 hour per day Rehab Potential: Good Barriers to Learning: Slight memory deficit Pt/Family Agrees to Plan: Yes Safety Risks/Education Teaching Recipient: Patient Teaching Methods: Discussion Response to Teaching: Verbalize Understanding Education Topics Provided: Safety with following procedures for meeting his needs/wants while in the rehab unit. Time Speech Therapy Time In: 14:00 Speech Therapy Time Out: 14:15 Total Billed Time: 15 Billed Treatment Time 1, CANDACE Julio Jun 01, 2018 14:25
--- NOTE | 2018-06-01 15:13 | PM&R Post Admission Assessment ---
Post Admission Physician Asses Date seen by provider: Jun 01, 2018 Time seen by provider: 14:00 The preadmission screen agrees with the post admission assessment that the patient is a good candidate for inpatient rehabilitation. The patient will have a comprehensive program of inpatient rehabilitation with a goal of maximizing level of functional independence prior to discharge home with spouse. The patient will have PT/OT ninety minutes per day, each discipline, five days a week for gait, strengthening, conditioning, balance, ADLs, any patient/family/caregiver training as necessary. Speech therapy to do cognitive assessment and treat as indicated. Rehabilitation nursing to assist with bowel, bladder, skin, medication administration, pain management. Search And Rescue Officer to assist with discharge planning, community reentry. SCD's for DVT prophylaxis. He appears to be well motivated to participate in three hours of therapy a day. He should be able to tolerate three hours of therapy a day from a medical standpoint. He should benefit from the three hours of therapy a day. He has a reasonable discharge plan, reasonable discharge rehabilitation goals and a supportive family. He has various comorbidities that need to be closely monitored with medications and treatments adjusted on a daily basis as needed. These include: Bladder and Prostate CA s/p chemo melanoma s/p immunotherapy HTN Peripheral edema Barriers to discharge for this patient who had been Modified independent to supervision prior to this are for him to be modified independent to supervision for ADLs and mobility skills prior to discharge home with spouse, so as to lessen the burden of the caregivers. Risks for this patient include: 1. Fall 2. Fracture 3. DVT 4. Pulmonary embolism 5. recurrent CA 6. Skin breakdown 7. Contractures 8. Poorly controlled pain 9. Urinary retention 10. UTI 11. Respiratory infection 12. Aspiration 13. poorly controlled HTN 14.Worsening peripheral edema Estimated Length of Stay: 14 days Prognosis: Rehab prognosis appears good for goal of discharge home with spouse modified at PLOF or better for ADLs and mobility skills. [facility] code 16 Etiologic DX Weakness Date Identified: Jun 01, 2018 Time Identified: 11:00 Action Plan to Resolve CSMI: Home meds reviewed and ordered General: Alert, Oriented X3, Cooperative, No Acute Distress HEENT: Atraumatic, PERRLA, EOMI, Mucous Memb Moist/Post Neck: Supple, No JVD Lungs: Clear to Auscultation Heart: Regular Rate Abdomen: Normal Bowel Sounds, Soft, No Tenderness, Other (Plus edema) Neuro: Other (Sensation diminished from knees down to light touch Strength 2/5 at hips left knee flex and ext 3/5 Rt knee flex and ext 2/5) Psych/Mental Status: Mental Status NL DANNA LAWS MD Jun 01, 2018 15:13
[2018-06-01] MEDS ORDERED: FURO40TA4 PO (15:40)
[2018-06-01] MEDS ORDERED: NEBI5TAB8 PO (15:40)
[2018-06-01] MEDS ORDERED: LEVO75TA6 PO (15:40)
[2018-06-01] MEDS ORDERED: POTA10CA43 PO (15:40)
--- NOTE | 2018-06-01 16:03 | HISTORY AND PHYSICAL ---
DATE OF SERVICE: 06/01/2018 CHIEF COMPLAINT: Difficulty with walking. HISTORY OF PRESENT ILLNESS: The patient is a 78-year-old male, known to me from prior admission to the IRU, who presented to ED on 05/19/2018, due to weakness at home, associated with falls. The patient was found to have peripheral edema. Case was discussed with PCP. Medications were adjusted. The patient was sent home, but had ongoing weakness and falls and his PCP referred him directly to inpatient rehabilitation unit. He has been getting chemotherapy treatments for melanoma at the cancer center for melanoma with last chemo being approximately nine weeks ago. He had been modified independent to standby assist for much of his activities at home. He uses a rolling walker. A chest x-ray on 05/19/2018, showed no acute abnormalities. A CT of the abdomen and pelvis showed minimal bilateral pleural effusions, no lymphadenopathy. No evidence of metastatic disease, moderate distention of the urinary bladder. CT of the chest on 05/22/2018, showed some poorly defined parenchymal opacities in the left upper lobe and the periphery of the right lung base. There were persistent small bilateral pleural effusions. Currently, the patient is mod assist for transfers, min assist for gait with walker. The patient is modified independent for eating, mod assist for toilet transfers. He fatigues easily. PAST MEDICAL HISTORY: Arthritis; hypertension; prostate cancer; bladder cancer; melanoma of left forearm, on immunotherapy through cancer center at [facility]; chronic constipation and DJD. PAST SURGICAL HISTORY: Prostatectomy, neck and back surgeries. ALLERGIES: No known medication allergies. FAMILY HISTORY: Noncontributory. SOCIAL HISTORY: Former smoker of cigarettes, quit in 1976, lives with spouse in [place]. PCP, Dr. Ramsey. REVIEW OF SYSTEMS: A 10-point review of systems is significant for weakness, shortness of breath, and fatigue. MEDICATIONS: Bystolic 5 mg p.o. daily, furosemide 40 mg p.o. daily, ASA 81 mg p.o. daily, Colace 100 mg p.o. daily, amlodipine 10 mg p.o. daily, lisinopril 20 mg p.o. daily, Celebrex 200 mg p.o. daily, KCl 10 mEq p.o. daily, Synthroid 75 mcg p.o. daily, and fish oil 1000 mg p.o. b.i.d. PHYSICAL EXAMINATION: GENERAL: Significant for a pleasant male, alert and oriented appropriate, sitting in chair in no acute distress. VITAL SIGNS: He is afebrile, pulse 62, respirations 18, blood pressure 108/63, and O2 sat 93% on room air. HEENT: Vision, speech, hearing is functional. No oral lesion is noted. NECK: Supple without mass. HEART: Regular rhythm. CHEST: Clear. ABDOMEN: Soft, nontender. Bowel sounds present. EXTREMITIES: He has swelling in both legs. No calf tenderness. MUSCULOSKELETAL: The patient has functional active range of motion in all 4 limbs. NEUROLOGIC: Sensation is impaired in both legs with impaired light touch sensation from the knees down. Cognition appears grossly intact. Upper limb strength is 4/5. He does have limited flexion, abduction at both shoulders at 80 degrees and right middle and ring finger flexion contractures noted. Strength of hip flex bilateral 2/5, knee flexion on the left 3/5 on the right 2/5, knee extension on the left 3/5 and on the right 2/5, dorsiflexion on the right 3/5 and on the left 3+/5. IMPRESSION: 1. General debilitation as a result of multiple chronic illnesses including cancer, receiving immunotherapy. 2. Peripheral neuropathy associated with peripheral edema. 3. Hypertension, controlled with medication. 4. Coronary artery disease. 5. Lumbar spondylosis. 6. Sick sinus syndrome. PLAN: The patient will have a comprehensive program of inpatient rehabilitation with a goal of maximizing level of functional independence prior to discharge home with spouse. The patient will have PT, OT 90 minutes per day each discipline 5 days a week for 2 weeks with the above goals in mind. Please see post-admission physician evaluation, which is separate document for details of plan of care. Speech Therapy to do cognitive assessment and treat as indicated. Rehabilitation nursing assist with bowel, bladder, skin care, medication administration, pain management and Supervisor Remelt with discharge planning, community reentry. Consult hospitalist service in lieu of Dr. Ramsey for medical management required, follow up with the cancer center as per their schedule. ESTIMATED LENGTH OF STAY: Two weeks. PROGNOSIS: Rehab prognosis appears good for goal of discharging home with spouse, modified independent to supervision for ADLs and mobility skills. DIET: Regular. CODE STATUS: Full code. Job ID: [id number] DocumentID: [id number] Dictated Date: 06/01/2018 15:05:38 Sealing Machine Operator Date: 06/01/2018 16:02:37 Dictated By: DANNA LAWS MD MTDD
[2018-06-01] MEDS: OMEGA 3 (FISH OIL) 1000 MG CAP PO SCH (17:32)
[2018-06-01 18:11] VITALS: BP 110/66
[2018-06-02 05:03] VITALS: BP 129/61
[2018-06-02] MEDS ORDERED: LEVOTHYROXINE 75 MCG (LEVOTHROID) TABLET PO SCH (06:30)
[2018-06-02] MEDS: OMEGA 3 (FISH OIL) 1000 MG CAP PO SCH ×2 (06:32→16:49)
[2018-06-02] MEDS: KCL 10 MEQ TAB (MICRO K) PO SCH (06:32)
[2018-06-02 08:17] VITALS: BP 116/57
[2018-06-02] MEDS: CELECOXIB 100 MG (CeleBREX) CAP PO SCH (08:18)
[2018-06-02] MEDS: lisINopril 40 MG (PRINIVIL) TABLET PO SCH (08:18)
[2018-06-02] MEDS: NEBIVOLOL 5 MG TAB (BYSTOLIC) PO SCH (08:18)
[2018-06-02] MEDS: DOCUSATE SODIUM 100 MG (COLACE) CAP PO SCH (08:18)
[2018-06-02] MEDS: FUROSEMIDE 40 MG (LASIX) TAB PO SCH (08:19)
[2018-06-02] MEDS: ASPIRIN E.C. 81 MG (ECOTRIN) TAB PO SCH (08:19)
[2018-06-02] MEDS: amLODIPine 10 MG (NORVASC) TAB PO SCH (08:19)
--- NOTE | 2018-06-02 09:15 | PM & R (SOAP) Progress Note ---
Subjective This was a face to face visit with the patient. Date Seen by Provider: Jun 02, 2018 Time Seen by Provider: 07:55 Subjective/Events-last exam Patient was seen in his room this AM Patient Min assist for transfers PT/OT and ST notes reviewed.Adjusting well to unit Review of Systems Neurological: Weakness Objective Physician Exam Last Set of Vital Signs Vital Signs Date Time Temp Pulse Resp B/P (MAP) Pulse Ox O2 Delivery O2 Flow Rate FiO2 06/02/18 08:31 98 Room Air 06/02/18 08:17 56 116/57 (76) 06/02/18 05:03 99.4 20 Capillary Refill : I&O Intake and Output 06/02/18 00:00 Intake Total 950 ml Balance 950 ml Intake Oral 950 ml # Voids 2 Daily Weight Change Unsure General: Alert, Oriented X3, Cooperative, No Acute Distress HEENT: Atraumatic, PERRLA, EOMI, Mucous Memb Moist/[place] Neck: Supple, No JVD Lungs: Clear to Auscultation Heart: Regular Rate Abdomen: Normal Bowel Sounds, Soft, No Tenderness, Other (Plus edema) Neuro: Other (Sensation diminished from knees down to light touch Strength 2/5 at hips left knee flex and ext 3/5 Rt knee flex and ext 2/5) Psych/Mental Status: Mental Status NL Assessment/Plan Assessment and Plan general debil as a result of multiple chronic illnesses including CA receiving immunotherapy Peripheral neuropathy associated with peripheral edema HTN controlled with meds CAD Lumbar spondylosis SSS Plan Continue PT/OT/ST ST has noted mild cognitive deficits F/U with Hospitalist serviced and [facility] prn Team Conference next week 12--18 Co-Morbidities that are continuing to impact the rehab process: (include details ) DANNA LAWS MD Jun 02, 2018 09:15
--- NOTE | 2018-06-02 09:58 | Physical Therapy Daily Note ---
PT Daily Note-Current Subjective Patient in bathroom pre tx, with nurse, no complaints of pain. Patient needs dressed. Appearance Patient in recliner post tx with nurse call, phone, tray, all needs met. Mental Status Patient Orientation: Person, Place, Situation Transfers Therapy Code Descriptions/Definitions Functional [place] Measure: 0=Not Assessed/NA 4=Minimal Assistance 1=Total Assistance 5=Supervision or Setup 2=Maximal Assistance 6=Modified [place] 3=Moderate Assistance 7=Complete [place] Therapy Quality Codes: 6 Independent with activity with or without an assistive device 5 Patient requires set up or clean up by helper. Patient completes activity by themselves 4 Supervision or touching assist (CGA). [place] provide cues , steadying assist 3 The helper provides less than half the effort to complete the activity 2 The helper provides more than half the effort to complete the activity 1 Dependent. The helper does all the effort to complete an activity 7 Patient refused to complete or attempt activity 9 The patient did not perform the activity before the current illness or injury 88 Not attempted due to Medical conditions or safety concerns Transfers (B, C, W/C) (FIM): 4 Sit to/from Stand: 4 Bed to/from Chair: 4 Min assist to stand from low surface, CGA for transfers, occasional cues for safety and hand placement. Gait Training Gait (FIM): 2 Distance: 120'x2 Gait Level of Assist: 4 Gait Persons Needed: 1 Gait Assistive Device: FWW CGA, slow but steady ambulation Exercises Standing: Hamstring curls, Heel/toe raises, Marching, Mini squats Standing Reps: 15 NuStep Minutes: 15 NuStep Workload: 4 Treatments transfers, ambulation, functional strengthening Assessment Current Status: Fair Progress improving ambulation and transfers, patient needs occasional rest breaks due to fatigue PT Short Term Goals Short Term Goals Time Frame: Jun 08, 2018 Gait (FIM): 4 Gait Distance Comment: 150' Gait Level of Assist: 4 Gait Assistive Device: FWW PT Energy Systems Laboratory Director Goals Energy Systems Laboratory Director Goals PT Energy Systems Laboratory Director Goals Time Frame: Jun 22, 2018 Transfers (B,C,W/C) (FIM): 5 Sit to Lying (QC): 4 Lying-Sitting on Side/Bed(QC): 4 Sit to Stand (QC): 4 Rollin Roll Left to Right (QC): 4 Chair/Erj-wi-Kgann Xfer(QC): 4 Car Transfer (QC): 4 Gait (FIM): 5 Distance: 200' Walk 10 feet (QC): 4 Walk 10ft-Uneven Surface(QC): 4 Walk 50ft with 2 Turns (QC): 4 Walk 150 ft (QC): 4 Gait Level of Assist: 5 Gait Assistive Device: FWW Stairs (FIM): 1 # of Steps: 1 1 Step (curb) (QC): 4 Stairs Level Of Assist: 4 PT Plan Problem List Problem List: Activity Tolerance, Functional Strength, Safety, Balance, Gait, Transfer, Bed Mobility Treatment/Plan Treatment Plan: Continue Plan of Care Treatment Plan: Bed Mobility, Education, Functional Activity Abdulkadir, Functional Strength, Group Therapy, Gait, Safety, Therapeutic Exercise, Transfers Treatment Duration: Jun 22, 2018 Frequency: At least 5 of 7 days/Wk (IRF) Estimated Hrs Per Day: 1.5 hours per day Patient and/or Family Agrees t: Yes Safety Risks/Education Patient Education: Gait Training, Transfer Techniques, Correct Positioning, Safety Issues Teaching Recipient: Patient Teaching Methods: Handout, Discussion Response to Teaching: Reinforcement Needed Time/GCodes Time In: 0900 Time Out: 1000 Total Billed Treatment Time: 60 Total Billed Treatment 1 visit GT 15' FA 15' EX 30' GREGORIA TREVIÑO PT Jun 02, 2018 09:58
--- NOTE | 2018-06-02 11:53 | Consultation-Hospitalist ---
URBAN ENG DO 06/02/18 1153: HPI History of Present Illness: HPI/Chief Complaint CC: Debility HPI: This is a 78yoWM clinic patient of Dr Ramsey who has a h/o melanoma who was admitted to [facility] due to debility and living along in need of strengthening. I reviewed the meds and hx. Patient reports he is having BM+ and denies any pain. Source: patient, RN/MD Exam Limitations: no limitations Date Seen 06/02/18 Attending Physician Jostin Montes MD PCP Damian Ramsey MD Referring Physician Date of Admission Jun 01, 2018 at 09:45 Home Medications & Allergies Home Medications Reviewed patient Home Medication Reconciliation performed by pharmacy medication reconciliations lawn and garden technician and/or nursing. Patients Allergies have been reviewed. Allergies Allergies Coded Allergies No Known Drug Allergies (Unverified11/09/17) Past Xenekgg-Hrucep-Zzvonz Hx Past Med/Social Hx: Reviewed Nursing Past Med/Soc Hx, Reviewed and Corrections made Patient Social History Marrital Status: single Employed/Student: retired (33 years at [employer]) Alcohol Use: Denies Use Recreational Drug Use: No Smoking Status: Former Smoker Former Smoker, Quit: May 04, 1977 Type Used: Cigarettes 2nd Hand Smoke Exposure: No Physical Abuse Screen: No Sexual Abuse: No Recent Foreign Travel: No Contact w/other who traveled: No Recent Hopitalizations: Yes ([address] [place] [address]) Recent Infectious Disease Expo: No Immunizations Up To Date Tetanus Booster (TDap): Unknown Date of Pneumonia Vaccine: Apr 19, 2016 Date of Influenza Vaccine: Mar 24, 2018 Seasonal Allergies Seasonal Allergies: Yes Past Medical History Surgeries: Prostatectomy Currently Using CPAP: No Currently Using BIPAP: No Cardiac: Hypertension Reproductive: No Sexually Transmitted Disease: No HIV/AIDS: No Genitourinary: Prostate Problems Gastrointestinal: Chronic Constipation Musculoskeletal: Degenerate Disk Disease, Arthritis HEENT: Cataract Loss of Vision: Denies Hearing Impairment: Denies Cancer: Bladder, Prostate, Melanoma Did You Recieve Any Treatments: Yes What Type of Treatment Did You: Chemotherapy, Radiation, Surgical Intervention History of Blood Disorders: No Adverse Reaction to Blood Nguyen: No (N/A) Family History No Pertinent Family Hx Review of Systems Constitutional: see HPI, weakness EENTM: no symptoms reported Respiratory: no symptoms reported Cardiovascular: no symptoms reported Gastrointestinal: no symptoms reported Musculoskeletal: no symptoms reported Skin: no symptoms reported Psychiatric/Neurological: No Symptoms Reported All Other Systems Reviewed Negative Unless Noted: Yes Physical Exam Physical Exam Vital Signs Vital Signs - First Documented 06/01/18 09:40 Temp 98.6 Pulse 62 Resp 18 B/P (MAP) 108/63 (78) Pulse Ox 93 O2 Delivery Room Air Capillary Refill : Height, Weight, BMI Height: 5'11.00" Weight: 175lbs. 0.0oz. [id number]; 24.4 BMI Method:Stated General Appearance: No Apparent Distress, WD/WN, Chronically ill, Thin Eyes: Bilateral Eye Normal Inspection, Bilateral Eye PERRL HEENT: PERRL/EOMI, Normal ENT Inspection, Pharynx Normal Neck: Full Range of Motion, Normal Inspection, Non Tender, Supple, Carotid Bruit Respiratory: Chest Non Tender, Lungs Clear, Normal Breath Sounds, No Accessory Muscle Use, No Respiratory Distress Cardiovascular: Regular Rate, Rhythm, No Edema, No Gallop, No JVD, No Murmur, Normal Peripheral Pulses Gastrointestinal: Normal Bowel Sounds, No Organomegaly, No Pulsatile Mass, Non Tender, Soft Back: Normal Inspection, No CVA Tenderness, No Vertebral Tenderness Extremity: Normal Capillary Refill, Normal Inspection, Normal Range of Motion, Non Tender, No Calf Tenderness, No Pedal Edema Neurologic/Psychiatric: Alert, Oriented x3, No Motor/Sensory Deficits, Normal Mood/Affect Skin: Normal Color, Warm/Dry Lymphatic: No Adenopathy Results Results/Procedures Labs Laboratory Tests 06/02/18 11:50 Patient resulted labs reviewed. Assessment/Plan Assessment and Plan Assess & Plan/Chief Complaint Assessment: Debility HTN Melanoma Chemotherapy treatment Plan: Monitor for pain Fall risk PT/OT Diagnosis/Problems Diagnosis/Problems (1) Debility Status: Acute (2) Right leg weakness Status: Acute (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 (4) Hypertension Status: Chronic Qualifiers: Hypertension type: essential hypertension Qualified Codes: I10 - Essential (primary) hypertension Clinical Quality Measures DVT/VTE Risk/Contraindication: Risk Factor Score Per Nursin RFS Level Per Nursing on Admit: 4+=Very High JERRY DOYLE MED STUDENT 06/02/18 1204: HPI History of Present Illness: HPI/Chief Complaint CC: Debility HPI: The patient is a 78 year old male who was admitted to inpatient rehabilitation for general weakness and debility. Patient states that he has been having trouble getting around at home and having frequent falls. He is currently receiving immunotherapy treatment for melanoma. Source: patient Exam Limitations: no limitations Home Medications & Allergies Home Medications Active Scripts Medications Dose Route/Sig Max Daily Dose Days Date Category Dose Instructions Furosemide 40 Mg Tablet 40 Mg PO DAILY 06/01/18 Reported Bystolic (Nebivolol HCl) 5 Mg Tablet 5 Mg PO DAILY 06/01/18 Reported Potassium Chloride 10 Meq Capsule.er 10 Meq PO DAILY 06/01/18 Reported Levothyroxine Sodium 75 Mcg Tablet 75 Mcg PO HS 06/01/18 Reported Fish Oil 1,200 mg Fish Oil (Fish Oil/Dha/Epa) 1 Each Capsule 2,400 Mg PO DAILY 03/20/18 Reported TAKES 2 (1200MG) CAPSULES Aspirin EC (Aspirin) 81 Mg Tablet.dr 81 Mg PO DAILY 03/20/18 Reported Celecoxib 200 Mg Capsule 200 Mg PO DAILY 03/20/18 Reported Allergy Relief (Cetirizine HCl) 10 Mg Tablet 10 Mg PO DAILY 03/20/18 Reported Colace (Docusate Sodium) 100 Mg Capsule 100 Mg PO DAILY 05/04/17 Reported Amlodipine Besylate 10 Mg Tablet 10 Mg PO DAILY 05/04/17 Reported Lisinopril 20 Mg Tablet 20 Mg PO DAILY 05/04/17 Reported Past Oirvcib-Zrepxq-Zrrvmw Hx Patient Social History Alcohol Use: Denies Use Recreational Drug Use: No Seasonal Allergies Seasonal Allergies: Yes Past Medical History Cardiac: Hypertension Genitourinary: Prostate Problems Gastrointestinal: Chronic Constipation Musculoskeletal: Degenerate Disk Disease, Arthritis HEENT: Cataract Cancer: Bladder, Prostate, Melanoma What Type of Treatment Did You: Chemotherapy, Radiation, Surgical Intervention Review of Systems Constitutional: weakness EENTM: no symptoms reported Respiratory: no symptoms reported Cardiovascular: no symptoms reported Gastrointestinal: no symptoms reported Musculoskeletal: no symptoms reported Skin: pruritus, rash Physical Exam Physical Exam General Appearance: No Apparent Distress, WD/WN Respiratory: Chest Non Tender, Lungs Clear, Normal Breath Sounds, No Accessory Muscle Use, No Respiratory Distress Cardiovascular: Regular Rate, Rhythm, No Edema, No Gallop, No JVD, No Murmur Extremity: Pedal Edema Neurologic/Psychiatric: Alert, Oriented x3, No Motor/Sensory Deficits, Normal Mood/Affect Skin: Normal Color, Warm/Dry, Rash Assessment/Plan Assessment and Plan Assess & Plan/Chief Complaint Assessment: 1) Generalized weakness 2) Debility 3) Melanoma Plan: 1) Inpatient rehabilitation 2) Continue cancer therapy URBAN ENG DO Jun 02, 2018 11:53 JERRY DOYLE MED STUDENT Jun 02, 2018 12:04
[2018-06-02 11:58] LABS: BASOPHILS # (AUTO) 0.1 10^3/uL (0.0-0.1); BASOPHILS % (AUTO) 1 % (0-10); EOSINOPHILS # (AUTO) 1.7 10^3/uL (0.0-0.3); EOSINOPHILS % (AUTO) 27 % (0-10); HEMATOCRIT 34 % (40-54); HEMOGLOBIN 11.1 G/DL (13.3-17.7); LYMPHOCYTES % (AUTO) 33 % (12-44); MEAN CORPUSCULAR HEMOGLOBIN 28 PG (25-34); MEAN CORPUSCULAR HGB CONC 33 G/DL (32-36); MEAN CORPUSCULAR VOLUME 86 FL (80-99); MEAN PLATELET VOLUME 9.5 FL (7.4-10.4); MONOCYTES # (AUTO) 0.4 X 10^3 (0.0-1.0); MONOCYTES % (AUTO) 7 % (0-12); NEUTROPHILS % (AUTO) 32 % (42-75); PLATELET COUNT 310 10^3/uL (130-400); RED BLOOD COUNT 3.97 10^6/uL (4.35-5.85); RED CELL DISTRIBUTION WIDTH 14.4 % (10.0-14.5); WHITE BLOOD COUNT 6.1 10^3/uL (4.3-11.0)
[2018-06-02 12:21] LABS: ALANINE AMINOTRANSFERASE 17 U/L (0-55); ALBUMIN 3.8 GM/DL (3.2-4.5); ALKALINE PHOSPHATASE 56 U/L (40-136); BILIRUBIN,TOTAL 0.8 MG/DL (0.1-1.0); BUN/CREATININE RATIO 22; CALCIUM 9.8 MG/DL (8.5-10.1); CARBON DIOXIDE 23 MMOL/L (21-32); CHLORIDE 104 MMOL/L (98-107); CREATININE SERUM 0.72 MG/DL (0.60-1.30); GFR ESTIMATED > 60; GLUCOSE 97 MG/DL (70-105); POTASSIUM 3.7 MMOL/L (3.6-5.0); SODIUM 138 MMOL/L (135-145); TOTAL PROTEIN 6.9 GM/DL (6.4-8.2)
--- NOTE | 2018-06-02 12:55 | Occupational Ther Daily Note ---
OT Current Status-Daily Note Subjective Pt seen in room, up in recliner, agreeable to OT. No pain mentioned. Appearance Alert, cooperative Mental Status/Objective Therapy Code Descriptions/Definitions Functional [place] Measure: 0=Not Assessed/NA 4=Minimal Assistance 1=Total Assistance 5=Supervision or Setup 2=Maximal Assistance 6=Modified [place] 3=Moderate Assistance 7=Complete [place] ADL-Treatment All ADLs took longer than usual. He needed min assist to get up from recliner the first time and struggled but was able to get up all other times with SBA. He walked to bathroom and transferred into shower and on/off shower bench with SBA, using grab bars to pull up with some difficulty. He was able to wash and dry all parts except back with supervision for safety, using long handled sponge. He walked back to recliner and was able to dress all parts with supervision, SBA when standing, setup, using long shoe horn, sock aid,television cameraman, taking extra time. Pt educ in use of dressing stick for taking socks off. Pt left up in recliner, all needs met. Therapy Code Descriptions/Definitions Functional [place] Measure: 0=Not Assessed/NA 4=Minimal Assistance 1=Total Assistance 5=Supervision or Setup 2=Maximal Assistance 6=Modified [place] 3=Moderate Assistance 7=Complete [place] Therapy Quality Codes: 6 Independent with activity with or without an assistive device 5 Patient requires set up or clean up by helper. Patient completes activity by themselves 4 Supervision or touching assist (CGA). [place] provide cues , steadying assist 3 The helper provides less than half the effort to complete the activity 2 The helper provides more than half the effort to complete the activity 1 Dependent. The helper does all the effort to complete an activity 7 Patient refused to complete or attempt activity 9 The patient did not perform the activity before the current illness or injury 88 Not attempted due to Medical conditions or safety concerns Bathing (FIM): 5 (Washed and dried all parts, supervision, setup. Shower bench , grab bars, hand held shower, long handled sponge) Shower/Bathe Self (QC): 4 Upper Body (FIM): 5 (Doffed and donned t shirt with setup, supervision for standing. Stood to put shirt on and had LOB backwards when shirt was over his eyes. He self-corrected but sat to complete donning shirt) Upper Body Dressing (QC): 4 Lower Body Dressing (FIM): 5 (SBA when standing to pull pants up. Used dressing stick, television cameraman, sock aid, long shoe horn. Setup) Lower Body Dressing (QC): 4 (SBA) On/Off Footwear (QC): 5 (setup) Transfers (B, C, W/C) (FIM): 4 Shower Transfer(FIM): 5 (SBA) Education OT Patient Education: Modified ADL techniques, Progress toward Goal/Update tx plan, Purpose of tx/functional activities, Safety issues, Use of adapted equipment Teaching Recipient: Patient Teaching Methods: Discussion Response to Teaching: Verbalize Understanding, Return Demonstration, Reinforcement Needed OT Short Term Goals Short Term Goals Time Frame: Jun 08, 2018 Toilet/Commode Transfer(FIM): 5 (SBA) Additional Short Term Goals: 1-Demonstrate ADL Tasks, 2-Verbalize Understanding , 3-ImproveStrength/Abdulkadir 1=Demonstrate adherence to instructed precautions during ADL tasks. 2=Patient will verbalize/demonstrate understanding of assistive devices/ modifications for ADL. 3=Patient will improve strength/tolerance for activity to enable patient to perform ADL's. OT Chcf Goals Qa Intern Goals Time Frame: Jun 22, 2018 Eating (FIM): 7 Eating (QC): 6 Groomin Oral Hygiene (QC): 6 Bathing(FIM): 6 Shower/Bathe Self (QC): 6 Upper Body Dressing(FIM): 6 Upper Body Dressing (QC): 6 Lower Body Dressing(FIM): 6 Lower Body Dressing (QC): 6 On/Off Footwear (QC): 6 Toileting(FIM): 6 Toileting Hygiene (QC): 6 Toilet/Commode Transfer(FIM): 6 Toilet/Commode Transfer (QC): 6 Shower Transfer(FIM): 6 Comprehension(FIM): 6 Expression (FIM): 7 Social Interaction(FIM): 7 Problem Solving(FIM): 7 Memory(FIM): 7 Additional Goals: 1-Demonstrate ADL Tasks, 2-Verbalize Understanding, 3- ImproveStrength/Abdulkadir 1=Demonstrate adherence to instructed precautions during ADL tasks. 2=Patient will verbalize/demonstrate understanding of assistive devices/ modifications for ADL. 3=Patient will improve strength/tolerance for activity to enable patient to perform ADL's. OT Education/Plan Problem List/Assessment Pt would benefit from skilled OT to increase his independence in basic self care to allow him to safely return home Discharge Recommendations Plan/Recommendations: Continue POC Treatment Plan/Plan of Care Patient would benefit from OT for education, treatment and training to promote independence in ADL's, mobility, safety and/or upper extremity function for ADL' s. Plan of Care: ADL Retraining, Functional Mobility, Group Exercise/Act as Ind ( education, exercise, socialization, functional activities, activiity toleance), UE Funct Exercise/Act, UE Neuromus Re-Ed/Coord, OTHER (energy conservation education/practce) Treatment Duration: Jun 22, 2018 Frequency: At least 5 of 7 days/Wk (IRF) Estimated Hrs Per Day: 1.5 hours per day Agreement: Yes Rehab Potential: Good Time/GCodes Start Time: 10:30 Stop Time: 12:12 Total Time Billed (hr/min): 102 Billed Treatment Time visit, 102 minutes ADL KAWN CASILLAS OT Jun 02, 2018 12:55
--- NOTE | 2018-06-02 13:57 | Physical Therapy Daily Note ---
PT Daily Note-Current Subjective Patient in recliner pre tx, agrees to PT, no complaints of pain. Appearance Patient in recliner post tx with nurse call, phone, tray, all needs met. Mental Status Patient Orientation: Person, Place, Situation Transfers Therapy Code Descriptions/Definitions Functional [place] Measure: 0=Not Assessed/NA 4=Minimal Assistance 1=Total Assistance 5=Supervision or Setup 2=Maximal Assistance 6=Modified [place] 3=Moderate Assistance 7=Complete [place] Therapy Quality Codes: 6 Independent with activity with or without an assistive device 5 Patient requires set up or clean up by helper. Patient completes activity by themselves 4 Supervision or touching assist (CGA). [place] provide cues , steadying assist 3 The helper provides less than half the effort to complete the activity 2 The helper provides more than half the effort to complete the activity 1 Dependent. The helper does all the effort to complete an activity 7 Patient refused to complete or attempt activity 9 The patient did not perform the activity before the current illness or injury 88 Not attempted due to Medical conditions or safety concerns Transfers (B, C, W/C) (FIM): 5 Sit to/from Stand: 5 Bed to/from Chair: 5 Gait Training Gait (FIM): 2 Distance: 120'x2 Gait Level of Assist: 5 Gait Persons Needed: 1 Gait Assistive Device: FWW Slow but steady ambulation. Exercises NuStep Minutes: 15 NuStep Workload: 4 Treatments transfers, ambulation, functional strengthening Assessment Current Status: Fair Progress slowly improving strength and endurance PT Short Term Goals Short Term Goals Time Frame: Jun 08, 2018 Gait (FIM): 4 Gait Distance Comment: 150' Gait Level of Assist: 4 Gait Assistive Device: FWW PT Traffic Control Flagger Goals Senior Living Goals PT Senior Living Goals Time Frame: Jun 22, 2018 Transfers (B,C,W/C) (FIM): 5 Sit to Lying (QC): 4 Lying-Sitting on Side/Bed(QC): 4 Sit to Stand (QC): 4 Rollin Roll Left to Right (QC): 4 Chair/Eou-gb-Cqqak Xfer(QC): 4 Car Transfer (QC): 4 Gait (FIM): 5 Distance: 200' Walk 10 feet (QC): 4 Walk 10ft-Uneven Surface(QC): 4 Walk 50ft with 2 Turns (QC): 4 Walk 150 ft (QC): 4 Gait Level of Assist: 5 Gait Assistive Device: FWW Stairs (FIM): 1 # of Steps: 1 1 Step (curb) (QC): 4 Stairs Level Of Assist: 4 PT Plan Problem List Problem List: Activity Tolerance, Functional Strength, Safety, Balance, Gait, Transfer, Bed Mobility, ROM Treatment/Plan Treatment Plan: Continue Plan of Care Treatment Plan: Bed Mobility, Education, Functional Activity Abdulkadir, Functional Strength, Group Therapy, Gait, Safety, Therapeutic Exercise, Transfers Treatment Duration: Jun 22, 2018 Frequency: At least 5 of 7 days/Wk (IRF) Estimated Hrs Per Day: 1.5 hours per day Patient and/or Family Agrees t: Yes Safety Risks/Education Patient Education: Gait Training, Transfer Techniques, Correct Positioning, Safety Issues Teaching Recipient: Patient Teaching Methods: Demonstration, Discussion Response to Teaching: Reinforcement Needed Time/GCodes Time In: 1330 Time Out: 1400 Total Billed Treatment Time: 30 Total Billed Treatment 1 visit GT 15' EX 15' GREGORIA TREVIÑO PT Jun 02, 2018 13:57
--- NOTE | 2018-06-02 14:52 | Occupational Ther Daily Note ---
OT Current Status-Daily Note Subjective Pt seen in room, up in recliner, finishing lunch. No pain mentioned. Mental Status/Objective Therapy Code Descriptions/Definitions Functional [place] Measure: 0=Not Assessed/NA 4=Minimal Assistance 1=Total Assistance 5=Supervision or Setup 2=Maximal Assistance 6=Modified [place] 3=Moderate Assistance 7=Complete [place] ADL-Treatment Sit to stand with SBA, FWW from recliner, with a little difficulty. He walked to the bathroom and stood SBA, FWW at sink to brush teeth. No LOB. Toilet transfer on/off BSC over toilet with SBA but struggling a little. Managed clothing and hygiene with SBA. Pt walked back to recliner and was left up in recliner, all needs met. Therapy Code Descriptions/Definitions Functional [place] Measure: 0=Not Assessed/NA 4=Minimal Assistance 1=Total Assistance 5=Supervision or Setup 2=Maximal Assistance 6=Modified [place] 3=Moderate Assistance 7=Complete [place] Therapy Quality Codes: 6 Independent with activity with or without an assistive device 5 Patient requires set up or clean up by helper. Patient completes activity by themselves 4 Supervision or touching assist (CGA). [place] provide cues , steadying assist 3 The helper provides less than half the effort to complete the activity 2 The helper provides more than half the effort to complete the activity 1 Dependent. The helper does all the effort to complete an activity 7 Patient refused to complete or attempt activity 9 The patient did not perform the activity before the current illness or injury 88 Not attempted due to Medical conditions or safety concerns Grooming (FIM): 5 (SBA, at sink) Oral Hygiene (QC): 4 (SBA) Toileting (FIM): 5 (SBA, managing clothing and hygiene. BSC) Toileting Hygiene (QC): 4 Toilet/Commode Transfer (FIM): 5 (SBA, struggling a little, BSC over toilet) Toilet Transfer (QC): 4 Education OT Patient Education: Progress toward Goal/Update tx plan, Purpose of tx/ functional activities, Safety issues Teaching Recipient: Patient Teaching Methods: Discussion Response to Teaching: Verbalize Understanding, Return Demonstration, Reinforcement Needed OT Short Term Goals Short Term Goals Time Frame: Jun 08, 2018 Toilet/Commode Transfer(FIM): 5 (SBA) Additional Short Term Goals: 1-Demonstrate ADL Tasks, 2-Verbalize Understanding , 3-ImproveStrength/Abdulkadir 1=Demonstrate adherence to instructed precautions during ADL tasks. 2=Patient will verbalize/demonstrate understanding of assistive devices/ modifications for ADL. 3=Patient will improve strength/tolerance for activity to enable patient to perform ADL's. OT Wind Turbine Erector Goals Wind Turbine Erector Goals Time Frame: Jun 22, 2018 Eating (FIM): 7 Eating (QC): 6 Groomin Oral Hygiene (QC): 6 Bathing(FIM): 6 Shower/Bathe Self (QC): 6 Upper Body Dressing(FIM): 6 Upper Body Dressing (QC): 6 Lower Body Dressing(FIM): 6 Lower Body Dressing (QC): 6 On/Off Footwear (QC): 6 Toileting(FIM): 6 Toileting Hygiene (QC): 6 Toilet/Commode Transfer(FIM): 6 Toilet/Commode Transfer (QC): 6 Shower Transfer(FIM): 6 Comprehension(FIM): 6 Expression (FIM): 7 Social Interaction(FIM): 7 Problem Solving(FIM): 7 Memory(FIM): 7 Additional Goals: 1-Demonstrate ADL Tasks, 2-Verbalize Understanding, 3- ImproveStrength/Abdulkadir 1=Demonstrate adherence to instructed precautions during ADL tasks. 2=Patient will verbalize/demonstrate understanding of assistive devices/ modifications for ADL. 3=Patient will improve strength/tolerance for activity to enable patient to perform ADL's. OT Education/Plan Problem List/Assessment Pt would benefit from skilled OT to increase his independence in basic self care to allow him to safely return home Discharge Recommendations Plan/Recommendations: Continue POC Treatment Plan/Plan of Care Patient would benefit from OT for education, treatment and training to promote independence in ADL's, mobility, safety and/or upper extremity function for ADL' s. Plan of Care: ADL Retraining, Functional Mobility, Group Exercise/Act as Ind ( education, exercise, socialization, functional activities, activiity toleance), UE Funct Exercise/Act, UE Neuromus Re-Ed/Coord, OTHER (energy conservation education/practce) Treatment Duration: Jun 22, 2018 Frequency: At least 5 of 7 days/Wk (IRF) Estimated Hrs Per Day: 1.5 hours per day Agreement: Yes Rehab Potential: Good Time/GCodes Start Time: 13:05 Stop Time: 13:25 Total Time Billed (hr/min): 20 Billed Treatment Time visit, 20 minutes KWAN CONSTANTINO OT Jun 02, 2018 14:51
[2018-06-02 16:50] VITALS: BP 113/64
[2018-06-03 05:15] VITALS: BP 107/62
[2018-06-03] MEDS: LEVOTHYROXINE 88 MCG (LEVOTHORID) TAB PO SCH (06:38)
[2018-06-03] MEDS: OMEGA 3 (FISH OIL) 1000 MG CAP PO SCH ×2 (06:38→16:11)
[2018-06-03] MEDS: KCL 10 MEQ TAB (MICRO K) PO SCH (06:38)
[2018-06-03] MEDS: ASPIRIN E.C. 81 MG (ECOTRIN) TAB PO SCH (09:27)
[2018-06-03] MEDS: FUROSEMIDE 40 MG (LASIX) TAB PO SCH (09:27)
[2018-06-03] MEDS: CELECOXIB 100 MG (CeleBREX) CAP PO SCH (09:27)
[2018-06-03 09:31] VITALS: BP 123/67
[2018-06-03] MEDS: NEBIVOLOL 5 MG TAB (BYSTOLIC) PO SCH (09:35)
[2018-06-03] MEDS: amLODIPine 10 MG (NORVASC) TAB PO SCH (09:35)
[2018-06-03] MEDS: lisINopril 40 MG (PRINIVIL) TABLET PO SCH (09:35)
[2018-06-03] MEDS: DOCUSATE SODIUM 100 MG (COLACE) CAP PO SCH (09:36)
--- NOTE | 2018-06-03 11:25 | Physical Therapy Daily Note ---
PT Daily Note-Current Subjective Pt. up in chair finishing breakfast, agrees to PT but states "it's too early for this." Pt. denies pain. Mental Status Patient Orientation: Normal For Age Transfers Therapy Code Descriptions/Definitions Functional [place] Measure: 0=Not Assessed/NA 4=Minimal Assistance 1=Total Assistance 5=Supervision or Setup 2=Maximal Assistance 6=Modified [place] 3=Moderate Assistance 7=Complete [place] Therapy Quality Codes: 6 Independent with activity with or without an assistive device 5 Patient requires set up or clean up by helper. Patient completes activity by themselves 4 Supervision or touching assist (CGA). [place] provide cues , steadying assist 3 The helper provides less than half the effort to complete the activity 2 The helper provides more than half the effort to complete the activity 1 Dependent. The helper does all the effort to complete an activity 7 Patient refused to complete or attempt activity 9 The patient did not perform the activity before the current illness or injury 88 Not attempted due to Medical conditions or safety concerns Transfers (B, C, W/C) (FIM): 5 Sit to/from Stand: 5 toilet transfer: SBA; pt. is mod (I) with pericare Gait Training Does the Patient Walk?: Yes Gait (FIM): 2 Distance (FIM): 3=858-92 ft Distance: 2 x 100 ft Gait Level of Assist: 5 Gait Persons Needed: 1 Gait Assistive Device: FWW kyphotic gait posture but steady balance Exercises NuStep Minutes: 10 NuStep Workload: 4 Treatments toileting, gait, exercise Assessment Current Status: Good Progress Pt. has difficulty lifting LE's onto Nustep requiring max A but does well with gait and transfers. Pt. returned to bedside chair post session with call light and all needs met. PT Short Term Goals Short Term Goals Time Frame: Jun 08, 2018 Gait (FIM): 4 Gait Distance Comment: 150' Gait Level of Assist: 4 Gait Assistive Device: FWW PT Longterm Goals Longterm Goals PT Legal Practice Manager Goals Time Frame: Jun 22, 2018 Transfers (B,C,W/C) (FIM): 5 Sit to Lying (QC): 4 Lying-Sitting on Side/Bed(QC): 4 Sit to Stand (QC): 4 Rollin Roll Left to Right (QC): 4 Chair/Phz-fe-Peibv Xfer(QC): 4 Car Transfer (QC): 4 Gait (FIM): 5 Distance: 200' Walk 10 feet (QC): 4 Walk 10ft-Uneven Surface(QC): 4 Walk 50ft with 2 Turns (QC): 4 Walk 150 ft (QC): 4 Gait Level of Assist: 5 Gait Assistive Device: FWW Stairs (FIM): 1 # of Steps: 1 1 Step (curb) (QC): 4 Stairs Level Of Assist: 4 PT Plan Treatment/Plan Treatment Plan: Continue Plan of Care Treatment Plan: Bed Mobility, Education, Functional Activity Abdulkadir, Functional Strength, Group Therapy, Gait, Safety, Therapeutic Exercise, Transfers Treatment Duration: Jun 22, 2018 Frequency: At least 5 of 7 days/Wk (IRF) Estimated Hrs Per Day: 1.5 hours per day Patient and/or Family Agrees t: Yes Time/GCodes Time In: 830 Time Out: 0900 Total Billed Treatment Time: 30 Total Billed Treatment 1, FA 20', Ex 10' СВЕТЛАНА BOWLES PT Jun 03, 2018 11:25
[2018-06-03 14:12] VITALS: BP 99/60
[2018-06-03 17:30] VITALS: BP 106/51
[2018-06-04 05:11] VITALS: BP 115/64
[2018-06-04] MEDS: OMEGA 3 (FISH OIL) 1000 MG CAP PO SCH ×2 (06:35→16:22)
[2018-06-04] MEDS: LEVOTHYROXINE 88 MCG (LEVOTHORID) TAB PO SCH (06:35)
[2018-06-04] MEDS: KCL 10 MEQ TAB (MICRO K) PO SCH (06:35)
[2018-06-04] MEDS: NEBIVOLOL 5 MG TAB (BYSTOLIC) PO SCH (08:52)
[2018-06-04] MEDS: lisINopril 40 MG (PRINIVIL) TABLET PO SCH (08:52)
[2018-06-04] MEDS: DOCUSATE SODIUM 100 MG (COLACE) CAP PO SCH (08:52)
[2018-06-04] MEDS: ASPIRIN E.C. 81 MG (ECOTRIN) TAB PO SCH (08:52)
[2018-06-04] MEDS: FUROSEMIDE 40 MG (LASIX) TAB PO SCH (08:52)
[2018-06-04] MEDS: CELECOXIB 100 MG (CeleBREX) CAP PO SCH (08:52)
[2018-06-04] MEDS: ENOXAPARIN 40 MG/0.4 ML (LOVENOX) SYR SC SCH (12:09)
[2018-06-04 17:35] VITALS: BP 110/63
[2018-06-05 05:05] VITALS: BP 126/68
[2018-06-05] MEDS: LEVOTHYROXINE 88 MCG (LEVOTHORID) TAB PO SCH (06:10)
[2018-06-05] MEDS: KCL 10 MEQ TAB (MICRO K) PO SCH (06:10)
[2018-06-05] MEDS: OMEGA 3 (FISH OIL) 1000 MG CAP PO SCH ×2 (06:10→16:18)
[2018-06-05 08:10] VITALS: BP 124/65
[2018-06-05] MEDS: DOCUSATE SODIUM 100 MG (COLACE) CAP PO SCH (08:14)
[2018-06-05] MEDS: FUROSEMIDE 40 MG (LASIX) TAB PO SCH (08:14)
[2018-06-05] MEDS: NEBIVOLOL 5 MG TAB (BYSTOLIC) PO SCH (08:14)
[2018-06-05] MEDS: ASPIRIN E.C. 81 MG (ECOTRIN) TAB PO SCH (08:15)
[2018-06-05] MEDS: CELECOXIB 100 MG (CeleBREX) CAP PO SCH (08:15)
[2018-06-05] MEDS: lisINopril 40 MG (PRINIVIL) TABLET PO SCH (08:15)
--- NOTE | 2018-06-05 09:47 | Occupational Ther Daily Note ---
OT Current Status-Daily Note Subjective Pt alert, lying in bed. Pt was trying to sit up on EOB, requested assist. Pt agrees to therapy. No c/o pain at this time. Mental Status/Objective Patient Orientation: Person, Place, Time, Situation Therapy Code Descriptions/Definitions Functional [place] Measure: 0=Not Assessed/NA 4=Minimal Assistance 1=Total Assistance 5=Supervision or Setup 2=Maximal Assistance 6=Modified [place] 3=Moderate Assistance 7=Complete [place] ADL-Treatment Therapy Code Descriptions/Definitions Functional [place] Measure: 0=Not Assessed/NA 4=Minimal Assistance 1=Total Assistance 5=Supervision or Setup 2=Maximal Assistance 6=Modified [place] 3=Moderate Assistance 7=Complete [place] Therapy Quality Codes: 6 Independent with activity with or without an assistive device 5 Patient requires set up or clean up by helper. Patient completes activity by themselves 4 Supervision or touching assist (CGA). [place] provide cues , steadying assist 3 The helper provides less than half the effort to complete the activity 2 The helper provides more than half the effort to complete the activity 1 Dependent. The helper does all the effort to complete an activity 7 Patient refused to complete or attempt activity 9 The patient did not perform the activity before the current illness or injury 88 Not attempted due to Medical conditions or safety concerns Eating (FIM): 7 (Pt able to open packages/containers then uses regular utensils to eat.) Eating (QC): 6 Grooming (FIM): 6 (Washed face and hands sitting on shower bench. Combed hair sitting in recliner.) Bathing (FIM): 4 (Using long handle sponge, hand held shower, grabbar and shower bench complete washing body parts. Assist to dry lower legs/feet.) Bathing Location: L Arm, R Arm, L Upper Leg, R Upper Leg, L Lower Leg ( including foot), R Lower Leg (including foot), Chest, Abdomen, Buttocks, Perineal Area Shower/Bathe Self (QC): 3 Upper Body (FIM): 5 (After set up, pt able to don/doff clothing by self.) Upper Body Dressing (QC): 5 Lower Body Dressing (FIM): 4 (Pt using AE to don lower body clothing. Assistance needed to guide over feet then pt able to pull up legs and hike over hips with CGA using FWW for stability. Doffed socks with dressing stick.) Lower Body Dressing (QC): 3 On/Off Footwear (QC): 4 (Set up and guidance of sock aide onto foot.) Toileting (FIM): 5 (Using elevated seat, grabbars and FWW pt able to complete with SBA.) Toileting Hygiene (QC): 4 Transfers (B, C, W/C) (FIM): 4 (Min A for sit to stand from low surface.) Toilet/Commode Transfer (FIM): 5 (Using elevated seat, grabbars and FWW pt able to complete with SBA.) Toilet Transfer (QC): 4 Shower Transfer(FIM): 4 (Using grabbars, shower bench and FWW pt able to transfer with min A for sit to stand.) Pt takes increased time to complete tasks due to decreased activity tolerance and slow movements. After therapy, pt sitting in recliner eating breakfast with call light/phone in reach. All needs met in room. OT Short Term Goals Short Term Goals Time Frame: Jun 08, 2018 Toilet/Commode Transfer(FIM): 5 (SBA) Additional Short Term Goals: 1-Demonstrate ADL Tasks, 2-Verbalize Understanding , 3-ImproveStrength/Abdulkadir 1=Demonstrate adherence to instructed precautions during ADL tasks. 2=Patient will verbalize/demonstrate understanding of assistive devices/ modifications for ADL. 3=Patient will improve strength/tolerance for activity to enable patient to perform ADL's. OT Res Counselor Goals Res Counselor Goals Time Frame: Jun 22, 2018 Eating (FIM): 7 Eating (QC): 6 Groomin Oral Hygiene (QC): 6 Bathing(FIM): 6 Shower/Bathe Self (QC): 6 Upper Body Dressing(FIM): 6 Upper Body Dressing (QC): 6 Lower Body Dressing(FIM): 6 Lower Body Dressing (QC): 6 On/Off Footwear (QC): 6 Toileting(FIM): 6 Toileting Hygiene (QC): 6 Toilet/Commode Transfer(FIM): 6 Toilet/Commode Transfer (QC): 6 Shower Transfer(FIM): 6 Comprehension(FIM): 6 Expression (FIM): 7 Social Interaction(FIM): 7 Problem Solving(FIM): 7 Memory(FIM): 7 Additional Goals: 1-Demonstrate ADL Tasks, 2-Verbalize Understanding, 3- ImproveStrength/Abdulkadir 1=Demonstrate adherence to instructed precautions during ADL tasks. 2=Patient will verbalize/demonstrate understanding of assistive devices/ modifications for ADL. 3=Patient will improve strength/tolerance for activity to enable patient to perform ADL's. OT Education/Plan Problem List/Assessment Pt would benefit from skilled OT to increase his independence in basic self care to allow him to safely return home Discharge Recommendations Plan/Recommendations: Continue POC Treatment Plan/Plan of Care Patient would benefit from OT for education, treatment and training to promote independence in ADL's, mobility, safety and/or upper extremity function for ADL' s. Plan of Care: ADL Retraining, Functional Mobility, Group Exercise/Act as Ind ( education, exercise, socialization, functional activities, activiity toleance), UE Funct Exercise/Act, UE Neuromus Re-Ed/Coord, OTHER (energy conservation education/practce) Treatment Duration: Jun 22, 2018 Frequency: At least 5 of 7 days/Wk (IRF) Estimated Hrs Per Day: 1.5 hours per day Agreement: Yes Rehab Potential: Good Time/GCodes Start Time: 08:45 Stop Time: 10:00 Total Time Billed (hr/min): 75 Billed Treatment Time 1 visit-ADL 5 (75 min) KRUPA WIE Jun 05, 2018 09:47
--- NOTE | 2018-06-05 10:56 | Physical Therapy Daily Note ---
PT Daily Note-Current Subjective Pt reports no new complaints. Pain Numeric Pain Scale: 0-No Pain Comment: mm are starting to ache by end of therapy session, but not really pain Appearance At beginning of session, pt sitting up in recliner awake and agreeable to work with PT At end of session pt sitting up in recliner with 2 pillows behind back for comfort, call light phone and bedside table within reach, all needs met at this time Mental Status Patient Orientation: Person, Place, Time, Eyes Open, Situation Transfers Therapy Code Descriptions/Definitions Functional [place] Measure: 0=Not Assessed/NA 4=Minimal Assistance 1=Total Assistance 5=Supervision or Setup 2=Maximal Assistance 6=Modified [place] 3=Moderate Assistance 7=Complete [place] Therapy Quality Codes: 6 Independent with activity with or without an assistive device 5 Patient requires set up or clean up by helper. Patient completes activity by themselves 4 Supervision or touching assist (CGA). [place] provide cues , steadying assist 3 The helper provides less than half the effort to complete the activity 2 The helper provides more than half the effort to complete the activity 1 Dependent. The helper does all the effort to complete an activity 7 Patient refused to complete or attempt activity 9 The patient did not perform the activity before the current illness or injury 88 Not attempted due to Medical conditions or safety concerns Transfers (B, C, W/C) (FIM): 5 Supine to/from Sit: 5 Sit to/from Stand: 5 Sit to Stand (QC): 5 Requires some effort at times to stand from low surface but able to with 1-3 attempts. Gait Training Does the Patient Walk?: Yes Gait (FIM): 5 Distance (FIM): 3=150 ft Distance: 90, 180, 270 Walk 10 feet (QC): 5 Walk 50 ft with 2 Turns(QC): 5 Walk 150 ft (QC): 5 Gait Level of Assist: 5 Gait Persons Needed: 1 Gait Assistive Device: FWW slow steady gait, noted RLE weakness > LLE, decreased step height and length, kyphotic posture Exercises Seated Therapy Exercises: Ankle pumps, Long arc quads, Hip flexion, Hip abd/add Seated Reps: 10 (Noted RLE weaker than LLE) max assist with LE's onto NuStep NuStep Minutes: 15 NuStep Workload: 4 Treatments transfer and gait training, ther ex Assessment Current Status: Good Progress increasing gait distance PT Short Term Goals Short Term Goals Time Frame: Jun 08, 2018 Gait (FIM): 4 Gait Distance Comment: 150' Gait Level of Assist: 4 Gait Assistive Device: FWW PT [facility] Goals Unit Technician Goals PT Unit Technician Goals Time Frame: Jun 22, 2018 Transfers (B,C,W/C) (FIM): 5 Sit to Lying (QC): 4 Lying-Sitting on Side/Bed(QC): 4 Sit to Stand (QC): 4 Rollin Roll Left to Right (QC): 4 Chair/Fnk-xw-Rthqx Xfer(QC): 4 Car Transfer (QC): 4 Gait (FIM): 5 Distance: 200' Walk 10 feet (QC): 4 Walk 10ft-Uneven Surface(QC): 4 Walk 50ft with 2 Turns (QC): 4 Walk 150 ft (QC): 4 Gait Level of Assist: 5 Gait Assistive Device: FWW Stairs (FIM): 1 # of Steps: 1 1 Step (curb) (QC): 4 Stairs Level Of Assist: 4 PT Plan Problem List Problem List: Activity Tolerance, Functional Strength, Safety, Gait, Transfer Treatment/Plan Treatment Plan: Continue Plan of Care Treatment Plan: Bed Mobility, Education, Functional Activity Abdulkadir, Functional Strength, Group Therapy, Gait, Safety, Therapeutic Exercise, Transfers Treatment Duration: Jun 22, 2018 Frequency: At least 5 of 7 days/Wk (IRF) Estimated Hrs Per Day: 1.5 hours per day Patient and/or Family Agrees t: Yes Safety Risks/Education Patient Education: Gait Training, Transfer Techniques, Safety Issues Teaching Recipient: Patient Teaching Methods: Discussion Response to Teaching: Verbalize Understanding, Return Demonstration, Reinforcement Needed Time/GCodes Time In: 1005 Time Out: 1105 Total Billed Treatment Time: 60 Total Billed Treatment 1 visit GT x2 30 in EX x2 30 min SCOTTY KHAN POMPOM MAKER Jun 05, 2018 10:56
[2018-06-05] MEDS: ENOXAPARIN 40 MG/0.4 ML (LOVENOX) SYR SC SCH (12:58)
--- NOTE | 2018-06-05 13:56 | Occupational Ther Daily Note ---
OT Current Status-Daily Note Subjective Pt alert, sitting in recliner. Pt agrees to therapy. No c/o pain at this time. Mental Status/Objective Patient Orientation: Person, Place, Time, Situation Therapy Code Descriptions/Definitions Functional [place] Measure: 0=Not Assessed/NA 4=Minimal Assistance 1=Total Assistance 5=Supervision or Setup 2=Maximal Assistance 6=Modified [place] 3=Moderate Assistance 7=Complete [place] ADL-Treatment Therapy Code Descriptions/Definitions Functional [place] Measure: 0=Not Assessed/NA 4=Minimal Assistance 1=Total Assistance 5=Supervision or Setup 2=Maximal Assistance 6=Modified [place] 3=Moderate Assistance 7=Complete [place] Therapy Quality Codes: 6 Independent with activity with or without an assistive device 5 Patient requires set up or clean up by helper. Patient completes activity by themselves 4 Supervision or touching assist (CGA). [place] provide cues , steadying assist 3 The helper provides less than half the effort to complete the activity 2 The helper provides more than half the effort to complete the activity 1 Dependent. The helper does all the effort to complete an activity 7 Patient refused to complete or attempt activity 9 The patient did not perform the activity before the current illness or injury 88 Not attempted due to Medical conditions or safety concerns Other Treatment Pt ambulated using FWW with CGA to therapy gym. Pt completed arm bike 10 min at 15 friend resistance to increase UE strength and activity tolerance. Pt took increased time to complete tasks due to decreased activity tolerance and slow movements. PT took over care of pt in therapy gym. All needs met in room. OT Short Term Goals Short Term Goals Time Frame: Jun 08, 2018 Toilet/Commode Transfer(FIM): 5 (SBA) Additional Short Term Goals: 1-Demonstrate ADL Tasks, 2-Verbalize Understanding , 3-ImproveStrength/Abdulkadir 1=Demonstrate adherence to instructed precautions during ADL tasks. 2=Patient will verbalize/demonstrate understanding of assistive devices/ modifications for ADL. 3=Patient will improve strength/tolerance for activity to enable patient to perform ADL's. OT Senior Living Goals Senior Living Goals Time Frame: Jun 22, 2018 Eating (FIM): 7 Eating (QC): 6 Groomin Oral Hygiene (QC): 6 Bathing(FIM): 6 Shower/Bathe Self (QC): 6 Upper Body Dressing(FIM): 6 Upper Body Dressing (QC): 6 Lower Body Dressing(FIM): 6 Lower Body Dressing (QC): 6 On/Off Footwear (QC): 6 Toileting(FIM): 6 Toileting Hygiene (QC): 6 Toilet/Commode Transfer(FIM): 6 Toilet/Commode Transfer (QC): 6 Shower Transfer(FIM): 6 Comprehension(FIM): 6 Expression (FIM): 7 Social Interaction(FIM): 7 Problem Solving(FIM): 7 Memory(FIM): 7 Additional Goals: 1-Demonstrate ADL Tasks, 2-Verbalize Understanding, 3- ImproveStrength/Abdulkadir 1=Demonstrate adherence to instructed precautions during ADL tasks. 2=Patient will verbalize/demonstrate understanding of assistive devices/ modifications for ADL. 3=Patient will improve strength/tolerance for activity to enable patient to perform ADL's. OT Education/Plan Problem List/Assessment Pt would benefit from skilled OT to increase his independence in basic self care to allow him to safely return home Discharge Recommendations Plan/Recommendations: Continue POC Treatment Plan/Plan of Care Patient would benefit from OT for education, treatment and training to promote independence in ADL's, mobility, safety and/or upper extremity function for ADL' s. Plan of Care: ADL Retraining, Functional Mobility, Group Exercise/Act as Ind ( education, exercise, socialization, functional activities, activiity toleance), UE Funct Exercise/Act, UE Neuromus Re-Ed/Coord, OTHER (energy conservation education/practce) Treatment Duration: Jun 22, 2018 Frequency: At least 5 of 7 days/Wk (IRF) Estimated Hrs Per Day: 1.5 hours per day Agreement: Yes Rehab Potential: Good Time/GCodes Start Time: 13:05 Stop Time: 13:30 Total Time Billed (hr/min): 25 Billed Treatment Time 1 visit-EX 2 (25 min) KRUPA WEI Jun 05, 2018 13:56
--- NOTE | 2018-06-05 14:09 | Physical Therapy Daily Note ---
PT Daily Note-Current Subjective pt reports his bones are worn out and he just can't get warm. Pain Numeric Pain Scale: 0-No Pain Appearance At beginning of PT session, pt sitting in therapy gym with OT At end of PT therapy session, pt sitting up in recliner with table in front of him, phone and nurse call button within reach, warm blanket wrapped around shoulders and back. All needs met by end of session. Transfers Therapy Code Descriptions/Definitions Functional [place] Measure: 0=Not Assessed/NA 4=Minimal Assistance 1=Total Assistance 5=Supervision or Setup 2=Maximal Assistance 6=Modified [place] 3=Moderate Assistance 7=Complete [place] Therapy Quality Codes: 6 Independent with activity with or without an assistive device 5 Patient requires set up or clean up by helper. Patient completes activity by themselves 4 Supervision or touching assist (CGA). [place] provide cues , steadying assist 3 The helper provides less than half the effort to complete the activity 2 The helper provides more than half the effort to complete the activity 1 Dependent. The helper does all the effort to complete an activity 7 Patient refused to complete or attempt activity 9 The patient did not perform the activity before the current illness or injury 88 Not attempted due to Medical conditions or safety concerns Transfers (B, C, W/C) (FIM): 4 Scootin Sit to/from Stand: 4 Sit to Stand (QC): 3 Pt requiring min assist of 1 x2 episodes to stand from chair this afternoon due to increased fatigue Gait Training Does the Patient Walk?: Yes Gait (FIM): 2 Distance (FIM): 9=613-32 ft Distance: 100, 70 Walk 10 feet (QC): 4 Walk 50 ft with 2 Turns(QC): 4 Gait Level of Assist: 5 Gait Persons Needed: 1 Gait Assistive Device: FWW decreased speed with gait this pm due to increased fatigue Exercises Standing: Heel/toe raises, Marching, Mini squats Standing Reps: 10 standing exercises with bilat UE support on // bars, encouragement to increase hip and knee flexion malaika with marching Treatments 1 visit FA x1 15 min GT x1 15 min Assessment Current Status: Fair Progress continues to fatigue easily PT Short Term Goals Short Term Goals Time Frame: Jun 08, 2018 Gait (FIM): 4 Gait Distance Comment: 150' Gait Level of Assist: 4 Gait Assistive Device: FWW PT Package Collector Goals Package Collector Goals PT [facility] Goals Time Frame: Jun 22, 2018 Transfers (B,C,W/C) (FIM): 5 Sit to Lying (QC): 4 Lying-Sitting on Side/Bed(QC): 4 Sit to Stand (QC): 4 Rollin Roll Left to Right (QC): 4 Chair/Njf-gy-Rquck Xfer(QC): 4 Car Transfer (QC): 4 Gait (FIM): 5 Distance: 200' Walk 10 feet (QC): 4 Walk 10ft-Uneven Surface(QC): 4 Walk 50ft with 2 Turns (QC): 4 Walk 150 ft (QC): 4 Gait Level of Assist: 5 Gait Assistive Device: FWW Stairs (FIM): 1 # of Steps: 1 1 Step (curb) (QC): 4 Stairs Level Of Assist: 4 PT Plan Problem List Problem List: Activity Tolerance, Functional Strength, Balance, Gait, Transfer Treatment/Plan Treatment Plan: Continue Plan of Care Treatment Plan: Bed Mobility, Education, Functional Activity Abdulkadir, Functional Strength, Group Therapy, Gait, Safety, Therapeutic Exercise, Transfers Treatment Duration: Jun 22, 2018 Frequency: At least 5 of 7 days/Wk (IRF) Estimated Hrs Per Day: 1.5 hours per day Patient and/or Family Agrees t: Yes Safety Risks/Education Patient Education: Gait Training, Transfer Techniques, Safety Issues Teaching Recipient: Patient Teaching Methods: Discussion Response to Teaching: Verbalize Understanding, Return Demonstration Time/GCodes Time In: 1330 Time Out: 1400 Total Billed Treatment Time: 30 Total Billed Treatment 1 visit FA x1 15 min GT x1 15 min SCOTTY KHAN PTA Jun 05, 2018 14:09
[2018-06-05 15:38] VITALS: BP 92/53
[2018-06-05 18:22] VITALS: BP 126/71
--- NOTE | 2018-06-05 20:59 | PM & R (SOAP) Progress Note ---
Subjective This was a face to face visit with the patient. Date Seen by Provider: Jun 05, 2018 Time Seen by Provider: 20:15 Subjective/Events-last exam Patient was seen in his room this evening Patient Mod assist for transfers Patient Min assist for gait Objective Physician Exam Last Set of Vital Signs Vital Signs Date Time Temp Pulse Resp B/P (MAP) Pulse Ox O2 Delivery O2 Flow Rate FiO2 06/05/18 18:22 54 126/71 (89) 06/05/18 15:38 96.2 16 94 Room Air Capillary Refill : I&O Intake and Output 06/05/18 00:00 Intake Total 1055 ml Output Total 525 ml Balance 530 ml Intake Oral 1055 ml Output Urine Total 525 ml # Voids 4 # Bowel Movements 2 General: Alert, Oriented X3, Cooperative, No Acute Distress HEENT: Atraumatic, PERRLA, EOMI, Mucous Memb Moist/[place] Neck: Supple, No JVD Lungs: Clear to Auscultation Heart: Regular Rate Abdomen: Normal Bowel Sounds, Soft, No Tenderness, Other (Plus edema) Neuro: Other (Sensation diminished from knees down to light touch Strength 2/5 at hips left knee flex and ext 3/5 Rt knee flex and ext 2/5) Psych/Mental Status: Mental Status NL Assessment/Plan Assessment and Plan General debil as a result of CA receiving Chemo Peripheral neuropathy associated with peripheral edema HTN controlled with med CAD Lumbar spondylosis SSS Plan Continue PT/OT Team Conference 06-07-18 Co-Morbidities that are continuing to impact the rehab process: (include details ) DANNA LAWS MD Jun 05, 2018 20:59
--- NOTE | 2018-06-05 21:03 | Individualized Plan of Care ---
Individualized Plan of Care Rehab Nursing IPOC Order Admission Date Jun 01, 2018 at 09:45 Current Orders Orders Pt Evaluate/Treat Request (06/01/18 08:44) Request Ot Evaluate & Treat (06/01/18 08:44) Request For Cognitive Services (06/01/18 08:44) Ambulate 08,12,20 (06/01/18 10:24) Sequential Compression Device 08,20 (06/01/18 10:24) Dvt/Vte Risk - Notifiy Physici 08 (06/01/18 10:24) Request Ot Evaluate & Treat (06/01/18 10:24) Vital Signs: Routine (Order) 08,16,00 (06/01/18 10:54) Sequential Compression Device 08,20 (06/01/18 10:54) Risk Management Professional-Inpt Rehab Con (06/01/18 10:54) Rehab Nursing Orders-Ipoc (06/01/18 10:54) Turn And Reposition Q2HR (06/01/18 10:54) Intake & Output 06,14,22 (06/01/18 10:54) Precautions (Aru) (06/01/18 10:54) Weekly Weight (Lbs) WEEK (06/01/18 10:54) Admission Order(Inpt,Obs,Sdc) (06/01/18 10:56) Code/Resuscitation (06/01/18 10:56) Initiate Admission Nursing Pro .admission (06/01/18 10:56) Levothyroxine Tablet (Synthroid Tablet) (06/02/18 06:30) Nebivolol Tablet (Bystolic Tablet) (06/02/18 09:00) Furosemide Tablet (Lasix Tablet) (06/02/18 09:00) Potassium Chloride (Tablet) (Klor Con Ta (06/02/18 07:00) [place] 3 Capsule (Fish Oil Capsule) (06/01/18 17:00) Aspirin Enteric Coated Tablet (Ecotrin T (06/02/18 09:00) Docusate Sodium Capsule (Colace Capsule) (06/02/18 09:00) Lisinopril Tablet (Zestril Tablet) (06/02/18 09:00) Celecoxib Capsule (Celebrex Capsule) (06/02/18 09:00) Amlodipine Tablet (Norvasc Tablet) (06/02/18 09:00) General/Regular (06/01/18 Lunch) Patient Visit (06/01/18 ) Pt Eval Moderate Complexity (06/01/18 ) Exercise Therap, Ea 15 Min (06/01/18 ) Gait Training, Ea 15 Min (06/01/18 ) Patient Visit (06/01/18 ) Exercise Therap, Ea 15 Min (06/01/18 ) Gait Training, Ea 15 Min (06/01/18 ) Patient Visit (06/01/18 ) Speech Sound Lang Comp (06/01/18 ) Consult Physician (06/01/18 20:41) Cbc With Automated Diff (06/02/18 08:01) Comprehensive Metabolic Panel (06/02/18 08:01) Thyroid Stimulating Hormone (06/02/18 08:01) Levothyroxine Tablet (Synthroid Tablet) (06/03/18 06:30) Patient Visit (06/02/18 ) Exercise Therap, Ea 15 Min (06/02/18 ) Gait Training, Ea 15 Min (06/02/18 ) Functional Activities, Ea 15 (06/02/18 ) Patient Visit (06/03/18 ) Functional Activities, Ea 15 (06/03/18 ) Exercise Therap, Ea 15 Min (06/03/18 ) Enoxaparin Injection (Lovenox Injection) (06/04/18 12:00) Patient Visit (06/05/18 ) Exercise Therap, Ea 15 Min (06/05/18 ) Gait Training, Ea 15 Min (06/05/18 ) Functional Activities, Ea 15 (06/05/18 ) Rehab Nursing Orders: Ongoing Assess. of Cognitive Status, Ongoing Assess. of Function Status, Disease Management & Educaiton, DVT Prophylaxis, Fall Prevention, Fluid/Electrolyte/Nutrition Mgmt, Infection Prevention, Medication Management & Education, Management of Risks & Complications, Management of Skin Intergrity, Nutrition Management, Pain Management, Patient/Family Support PT IPOC Problem List: Activity Tolerance, Functional Strength, Balance, Gait, Transfer Treatment Plan: Continue Plan of Care Bed Mobility, Education, Functional Activity Abdulkadir, Functional Strength, Group Therapy, Gait, Safety, Therapeutic Exercise, Transfers Treatment Duration: Jun 22, 2018 Frequency: At least 5 of 7 days/Wk (IRF) Estimated Hrs Per Day: 1.5 hours per day OT IPOC Problems: Decreased Activ Tolerance, Decreased UE Strength, Dependent Transfers , Impaired Bed Mobility, Impaired Self-Care Skills OT Treatment, Training and Edu: Yes OT Problems Pt would benefit from skilled OT to increase his independence in basic self care to allow him to safely return home Plan of Care: ADL Retraining, Functional Mobility, Group Exercise/Act as Ind ( education, exercise, socialization, functional activities, activiity toleance), UE Funct Exercise/Act, UE Neuromus Re-Ed/Coord, OTHER (energy conservation education/practce) Treatment Duration: Jun 22, 2018 Frequency: At least 5 of 7 days/Wk (IRF) Estimated Hrs Per Day: 1.[address] IPOC Speech Therapy Treatment Plan: Continue Plan of Care Treatment Duration: Jun 01, 2018 Frequency: 1 time per week Estimated Hrs Per Day: .25 hour per day Risk Management Professional/Case Mgmt Risk Management Professional/Case Managemen: Discharge Planning, Patient/Family Counseling Dietitian/Modular Home Crew Member Dietitian/Modular Home Crew Member to monitor nutritional status and make changes and/or recommendations as needed and work with speech pathology on dietary upgrades as the occur. Physician IPOC Medical Issues being managed closely and that require the 24 hour availability of a physician: Peripheral neuropathy associated with Edema HTN CAD Lumbar spondylosis SSS IGC code 16 Etiologic DX Weakness Medical Issues: DVT Prophylaxis, Falls Precautions, Fluid/Electrolyte/ Nutrition Balance, Infection Protection, Pain Management, Other (List) (as per above) Brief Synthesis of Preadmission Screen, Post-Admission Evaluation, and Therapy Evaluations: 78 yo male who has had a decline in Functional [place] due to chronic illness referred to [facility] for ongoing care and therapies Medical Prognosis: good Anticipated Length of Stay: 12-14-18 return to [facility] or better Anticipated d/c Destination: Home with [facility] and spouse DANNA LAWS MD Jun 05, 2018 21:03
[2018-06-06 05:03] VITALS: BP 127/66
[2018-06-06] MEDS: KCL 10 MEQ TAB (MICRO K) PO SCH (06:07)
[2018-06-06] MEDS: OMEGA 3 (FISH OIL) 1000 MG CAP PO SCH ×2 (06:07→17:21)
[2018-06-06] MEDS: LEVOTHYROXINE 88 MCG (LEVOTHORID) TAB PO SCH (06:08)
[2018-06-06 08:38] VITALS: BP 122/69
[2018-06-06] MEDS: ASPIRIN E.C. 81 MG (ECOTRIN) TAB PO SCH (08:39)
[2018-06-06] MEDS: lisINopril 40 MG (PRINIVIL) TABLET PO SCH (08:40)
[2018-06-06] MEDS: DOCUSATE SODIUM 100 MG (COLACE) CAP PO SCH (08:40)
[2018-06-06] MEDS: FUROSEMIDE 40 MG (LASIX) TAB PO SCH (08:40)
[2018-06-06] MEDS: NEBIVOLOL 5 MG TAB (BYSTOLIC) PO SCH (08:40)
[2018-06-06] MEDS: CELECOXIB 100 MG (CeleBREX) CAP PO SCH (08:40)
--- NOTE | 2018-06-06 10:51 | Occupational Ther Daily Note ---
OT Current Status-Daily Note Subjective Pt seen in room, up in recliner, agreeable to OT. No pain mentioned. Appearance Alert, cooperative Mental Status/Objective Therapy Code Descriptions/Definitions Functional [place] Measure: 0=Not Assessed/NA 4=Minimal Assistance 1=Total Assistance 5=Supervision or Setup 2=Maximal Assistance 6=Modified [place] 3=Moderate Assistance 7=Complete [place] ADL-Treatment Pt declined showering or changing clothes since he showered yesterday. He got up from recliner with SBA but "got stuck" midway and took a couple trials to get up. Walked with SBA, FWW to gym, with cues to get closer to walker at times. Able to get into chair with arms, with cue for walker placement. Had difficulty lifting R foot for chair to be scooted to table. Pt completed 12 minutes bilat UE exercise on arm bike set at 15-20W resistance, with breaks only to get a drink. Also completed nuts and bolts activity with 1# weight on each wrist. Pt needed to modify activity due to decr bilat shoulder flex. He struggled again to get up from chair with arms but was able to do it. He walked SBA, FWW back to his room and stood at toilet to urinate, managing clothing, leaning forward to support himself, no LOB. Pt returne to recliner, cue for walker placement. Pt left up in chair, all needs met. Therapy Code Descriptions/Definitions Functional [place] Measure: 0=Not Assessed/NA 4=Minimal Assistance 1=Total Assistance 5=Supervision or Setup 2=Maximal Assistance 6=Modified [place] 3=Moderate Assistance 7=Complete [place] Therapy Quality Codes: 6 Independent with activity with or without an assistive device 5 Patient requires set up or clean up by helper. Patient completes activity by themselves 4 Supervision or touching assist (CGA). [place] provide cues , steadying assist 3 The helper provides less than half the effort to complete the activity 2 The helper provides more than half the effort to complete the activity 1 Dependent. The helper does all the effort to complete an activity 7 Patient refused to complete or attempt activity 9 The patient did not perform the activity before the current illness or injury 88 Not attempted due to Medical conditions or safety concerns Toileting (FIM): 5 Education OT Patient Education: Progress toward Goal/Update tx plan, Purpose of tx/ functional activities, Safety issues, Transfer techniques Teaching Recipient: Patient Teaching Methods: Discussion Response to Teaching: Verbalize Understanding, Return Demonstration, Reinforcement Needed OT Short Term Goals Short Term Goals Time Frame: Jun 08, 2018 Toilet/Commode Transfer(FIM): 5 (SBA) Additional Short Term Goals: 1-Demonstrate ADL Tasks, 2-Verbalize Understanding , 3-ImproveStrength/Abdulkadir 1=Demonstrate adherence to instructed precautions during ADL tasks. 2=Patient will verbalize/demonstrate understanding of assistive devices/ modifications for ADL. 3=Patient will improve strength/tolerance for activity to enable patient to perform ADL's. OT Weight Control Lecturer Goals Weight Control Lecturer Goals Time Frame: Jun 22, 2018 Eating (FIM): 7 Eating (QC): 6 Groomin Oral Hygiene (QC): 6 Bathing(FIM): 6 Shower/Bathe Self (QC): 6 Upper Body Dressing(FIM): 6 Upper Body Dressing (QC): 6 Lower Body Dressing(FIM): 6 Lower Body Dressing (QC): 6 On/Off Footwear (QC): 6 Toileting(FIM): 6 Toileting Hygiene (QC): 6 Toilet/Commode Transfer(FIM): 6 Toilet/Commode Transfer (QC): 6 Shower Transfer(FIM): 6 Comprehension(FIM): 6 Expression (FIM): 7 Social Interaction(FIM): 7 Problem Solving(FIM): 7 Memory(FIM): 7 Additional Goals: 1-Demonstrate ADL Tasks, 2-Verbalize Understanding, 3- ImproveStrength/Abdulkadir 1=Demonstrate adherence to instructed precautions during ADL tasks. 2=Patient will verbalize/demonstrate understanding of assistive devices/ modifications for ADL. 3=Patient will improve strength/tolerance for activity to enable patient to perform ADL's. OT Education/Plan Problem List/Assessment Pt would benefit from skilled OT to increase his independence in basic self care to allow him to safely return home Discharge Recommendations Plan/Recommendations: Continue POC Treatment Plan/Plan of Care Patient would benefit from OT for education, treatment and training to promote independence in ADL's, mobility, safety and/or upper extremity function for ADL' s. Plan of Care: ADL Retraining, Functional Mobility, Group Exercise/Act as Ind ( education, exercise, socialization, functional activities, activiity toleance), UE Funct Exercise/Act, UE Neuromus Re-Ed/Coord, OTHER (energy conservation education/practce) Treatment Duration: Jun 22, 2018 Frequency: At least 5 of 7 days/Wk (IRF) Estimated Hrs Per Day: 1.5 hours per day Agreement: Yes Rehab Potential: Good Time/GCodes Start Time: 09:00 Stop Time: 10:00 Total Time Billed (hr/min): 60 Billed Treatment Time visit, 55 minutes exercise, 5 minutes ADL KWAN CASILLAS OT Jun 06, 2018 10:51
--- NOTE | 2018-06-06 11:23 | PM & R (SOAP) Progress Note ---
Subjective This was a face to face visit with the patient. Date Seen by Provider: Jun 04, 2018 Time Seen by Provider: 18:05 Subjective/Events-last exam Patient was seen in his room this evening Patient Min to mod assist for transfers.Fatigues easily Date Identified: Jun 04, 2018 Time Identified: 18:00 Medication Intervention: Lovenox sub cut ordered for dvt prophylaxis Review of Systems Neurological: Weakness Objective Physician Exam Last Set of Vital Signs Vital Signs Date Time Temp Pulse Resp B/P (MAP) Pulse Ox O2 Delivery O2 Flow Rate FiO2 06/06/18 08:40 Room Air 06/06/18 08:38 60 122/69 (86) 06/06/18 05:03 99.4 18 97 Capillary Refill : I&O Intake and Output 06/06/18 00:00 Intake Total 1900 ml Output Total 550 ml Balance 1350 ml Intake Oral 1900 ml Output Urine Total 550 ml # Voids 4 # Bowel Movements 2 General: Alert, Oriented X3, Cooperative, No Acute Distress HEENT: Atraumatic, PERRLA, EOMI, Mucous Memb Moist/[place] Neck: Supple, No JVD Lungs: Clear to Auscultation Heart: Regular Rate Abdomen: Normal Bowel Sounds, Soft, No Tenderness, Other (Plus edema) Neuro: Other (Sensation diminished from knees down to light touch Strength 2/5 at hips left knee flex and ext 3/5 Rt knee flex and ext 2/5) Psych/Mental Status: Mental Status NL Assessment/Plan Assessment and Plan General debil as a result of multiple chronic illnesses including CA receiving Immunotherapy Peripheral neuropathy associated with peripheral edema HTN controlled with meds CAD Lumbar spondylosis SSS DVT prophylaxis lovenox subcut Plan Continue PT/OT Team Conference 06-07-18 This note completed tardy due to EMR access issues due to new access icon Co-Morbidities that are continuing to impact the rehab process: (include details ) DANNA LAWS MD Jun 06, 2018 11:23
--- NOTE | 2018-06-06 11:28 | Physical Therapy Daily Note ---
PT Daily Note-Current Subjective Pt. tearfully states " I was kirstin down at home and had to come back here again " Pt. states he feels like he may have to go somewhere to get help after he leaves here. States he cant remember where his late was . Comments that he is so weak and that he feels exercising makes it worse not better. Pain Numeric Pain Scale: 0-No Pain Appearance thinner than when he was last seen/treated by this UNDER TRIMMER at prior admission, frail , head down, appears depressed Mental Status Patient Orientation: Person, Place, Time, Situation Transfers Therapy Code Descriptions/Definitions Functional [place] Measure: 0=Not Assessed/NA 4=Minimal Assistance 1=Total Assistance 5=Supervision or Setup 2=Maximal Assistance 6=Modified [place] 3=Moderate Assistance 7=Complete [place] Therapy Quality Codes: 6 Independent with activity with or without an assistive device 5 Patient requires set up or clean up by helper. Patient completes activity by themselves 4 Supervision or touching assist (CGA). [place] provide cues , steadying assist 3 The helper provides less than half the effort to complete the activity 2 The helper provides more than half the effort to complete the activity 1 Dependent. The helper does all the effort to complete an activity 7 Patient refused to complete or attempt activity 9 The patient did not perform the activity before the current illness or injury 88 Not attempted due to Medical conditions or safety concerns Transfers (B, C, W/C) (FIM): 3 Scootin Rollin Supine to/from Sit: 3 Sit to/from Stand: 4 rolling and sup to sit required assist for LEs Gait Training Does the Patient Walk?: Yes Gait (FIM): 5 Distance (FIM): 3=150 ft (160x2) Gait Level of Assist: 5 Gait Persons Needed: 1 Gait Assistive Device: FWW slow, head down, flexed at trunk Exercises Supine Ex: Bridging, Ankle pumps, Rolling, Heel Slides (assist), Short Arc Quads, Straight leg raise (asist), Hip abd/add (assist) Supine Reps: 15 Seated Therapy Exercises: Ankle pumps, Sit to stand, Long arc quads, Hip flexion, Hip abd/add Seated Reps: 12 NuStep Minutes: 15 NuStep Workload: 3 Assessment Current Status: Fair Progress struggling with all mobility PT Short Term Goals Short Term Goals Time Frame: Jun 08, 2018 Gait (FIM): 4 Gait Distance Comment: 150' Gait Level of Assist: 4 Gait Assistive Device: FWW PT Chcf Goals Hr Intern Goals PT Chcf Goals Time Frame: Jun 22, 2018 Transfers (B,C,W/C) (FIM): 5 Sit to Lying (QC): 4 Lying-Sitting on Side/Bed(QC): 4 Sit to Stand (QC): 4 Rollin Roll Left to Right (QC): 4 Chair/Qct-du-Bczxa Xfer(QC): 4 Car Transfer (QC): 4 Gait (FIM): 5 Distance: 200' Walk 10 feet (QC): 4 Walk 10ft-Uneven Surface(QC): 4 Walk 50ft with 2 Turns (QC): 4 Walk 150 ft (QC): 4 Gait Level of Assist: 5 Gait Assistive Device: FWW Stairs (FIM): 1 # of Steps: 1 1 Step (curb) (QC): 4 Stairs Level Of Assist: 4 PT Plan Treatment/Plan Treatment Plan: Continue Plan of Care Treatment Plan: Bed Mobility, Education, Functional Activity Abdulkadir, Functional Strength, Group Therapy, Gait, Safety, Therapeutic Exercise, Transfers Treatment Duration: Jun 22, 2018 Frequency: At least 5 of 7 days/Wk (IRF) Estimated Hrs Per Day: 1.5 hours per day Patient and/or Family Agrees t: Yes Safety Risks/Education Patient Education: Gait Training, Transfer Techniques, Correct Positioning, Safety Issues Teaching Recipient: Patient Teaching Methods: Demonstration, Discussion Response to Teaching: Verbalize Understanding, Return Demonstration, Reinforcement Needed Time/GCodes Time In: 1000 Time Out: 1130 Total Billed Treatment Time: 90 Total Billed Treatment 1,GT25m,EX35m,FA30m G Codes Necessary: NEIL Do UNDER TRIMMER Jun 06, 2018 11:28
--- NOTE | 2018-06-06 12:19 | PM & R (SOAP) Progress Note ---
Subjective This was a face to face visit with the patient. Date Seen by Provider: Jun 06, 2018 Time Seen by Provider: 11:55 Subjective/Events-last exam Patient was seen in his room this AM Patient Min to mod assist for transfers Review of Systems Neurological: Weakness Objective Physician Exam Last Set of Vital Signs Vital Signs Date Time Temp Pulse Resp B/P (MAP) Pulse Ox O2 Delivery O2 Flow Rate FiO2 06/06/18 08:40 Room Air 06/06/18 08:38 60 122/69 (86) 06/06/18 05:03 99.4 18 97 Capillary Refill : I&O Intake and Output 06/06/18 00:00 Intake Total 1900 ml Output Total 550 ml Balance 1350 ml Intake Oral 1900 ml Output Urine Total 550 ml # Voids 4 # Bowel Movements 2 General: Alert, Oriented X3, Cooperative, No Acute Distress HEENT: Atraumatic, PERRLA, EOMI, Mucous Memb Moist/[place] Neck: Supple, No JVD Lungs: Clear to Auscultation Heart: Regular Rate Abdomen: Normal Bowel Sounds, Soft, No Tenderness, Other (Plus edema) Neuro: Other (Sensation diminished from knees down to light touch Strength 2/5 at hips left knee flex and ext 3/5 Rt knee flex and ext 2/5) Psych/Mental Status: Mental Status NL Assessment/Plan Assessment and Plan general debil as a result of CA receiving chemo Peripheral neuropathy associated with peripheral edema Peripheral edema improving HTN controlled with med Lumbar spondylosis SSS Plan Continue Pt/OT Team Conference tomorrow Co-Morbidities that are continuing to impact the rehab process: (include details ) DANNA LAWS MD Jun 06, 2018 12:19
[2018-06-06] MEDS: ENOXAPARIN 40 MG/0.4 ML (LOVENOX) SYR SC SCH (12:30)
--- NOTE | 2018-06-06 13:46 | Occupational Ther Daily Note ---
OT Current Status-Daily Note Subjective Pt seen in room, up in recliner, agreeable to OT. Needs to toilet. Mental Status/Objective Therapy Code Descriptions/Definitions Functional [place] Measure: 0=Not Assessed/NA 4=Minimal Assistance 1=Total Assistance 5=Supervision or Setup 2=Maximal Assistance 6=Modified [place] 3=Moderate Assistance 7=Complete [place] ADL-Treatment Pt struggled to get up from recliner with additional cushion in seat. Walked to bathroom with SBA, FWW and stood at toilet to urinate, managing clothing, with no LOB, balancing with arm on the wall or toilet. Walked to sink to wash hands, SBA, Fww. Pt set up his own lunch while OT and pt discussed discharge options, in preparation for team meeting tomorrow. He is interested in assisted living "but I don't know where to find one". Pt walked with SBA, FWW, with cues to get closer to walker, to commons area and sat in chair with arms. He completed 10 reps several different exercises with exercise bar, pt education on the exercises to do. He struggled again getting out of chair with arms and got stuck at midpoint. He walked back to his room and was left up in recliner, all needs met. SW informed of assisted living discussion. Therapy Code Descriptions/Definitions Functional [place] Measure: 0=Not Assessed/NA 4=Minimal Assistance 1=Total Assistance 5=Supervision or Setup 2=Maximal Assistance 6=Modified [place] 3=Moderate Assistance 7=Complete [place] Therapy Quality Codes: 6 Independent with activity with or without an assistive device 5 Patient requires set up or clean up by helper. Patient completes activity by themselves 4 Supervision or touching assist (CGA). [place] provide cues , steadying assist 3 The helper provides less than half the effort to complete the activity 2 The helper provides more than half the effort to complete the activity 1 Dependent. The helper does all the effort to complete an activity 7 Patient refused to complete or attempt activity 9 The patient did not perform the activity before the current illness or injury 88 Not attempted due to Medical conditions or safety concerns Toileting (FIM): 5 (SBA, standing at toilet) Education OT Patient Education: Progress toward Goal/Update tx plan, Purpose of tx/ functional activities, Safety issues, Transfer techniques Teaching Recipient: Patient Teaching Methods: Discussion Response to Teaching: Verbalize Understanding, Return Demonstration, Reinforcement Needed OT Short Term Goals Short Term Goals Time Frame: Jun 08, 2018 Toilet/Commode Transfer(FIM): 5 (SBA) Additional Short Term Goals: 1-Demonstrate ADL Tasks, 2-Verbalize Understanding , 3-ImproveStrength/Abdulkadir 1=Demonstrate adherence to instructed precautions during ADL tasks. 2=Patient will verbalize/demonstrate understanding of assistive devices/ modifications for ADL. 3=Patient will improve strength/tolerance for activity to enable patient to perform ADL's. OT Supervisor [place] Department Goals Custodial Goals Time Frame: Jun 22, 2018 Eating (FIM): 7 Eating (QC): 6 Groomin Oral Hygiene (QC): 6 Bathing(FIM): 6 Shower/Bathe Self (QC): 6 Upper Body Dressing(FIM): 6 Upper Body Dressing (QC): 6 Lower Body Dressing(FIM): 6 Lower Body Dressing (QC): 6 On/Off Footwear (QC): 6 Toileting(FIM): 6 Toileting Hygiene (QC): 6 Toilet/Commode Transfer(FIM): 6 Toilet/Commode Transfer (QC): 6 Shower Transfer(FIM): 6 Comprehension(FIM): 6 Expression (FIM): 7 Social Interaction(FIM): 7 Problem Solving(FIM): 7 Memory(FIM): 7 Additional Goals: 1-Demonstrate ADL Tasks, 2-Verbalize Understanding, 3- ImproveStrength/Abdulkadir 1=Demonstrate adherence to instructed precautions during ADL tasks. 2=Patient will verbalize/demonstrate understanding of assistive devices/ modifications for ADL. 3=Patient will improve strength/tolerance for activity to enable patient to perform ADL's. OT Education/Plan Problem List/Assessment Pt would benefit from skilled OT to increase his independence in basic self care to allow him to safely return home Discharge Recommendations Plan/Recommendations: Continue POC Treatment Plan/Plan of Care Patient would benefit from OT for education, treatment and training to promote independence in ADL's, mobility, safety and/or upper extremity function for ADL' s. Plan of Care: ADL Retraining, Functional Mobility, Group Exercise/Act as Ind ( education, exercise, socialization, functional activities, activiity toleance), UE Funct Exercise/Act, UE Neuromus Re-Ed/Coord, OTHER (energy conservation education/practce) Treatment Duration: Jun 22, 2018 Frequency: At least 5 of 7 days/Wk (IRF) Estimated Hrs Per Day: 1.5 hours per day Agreement: Yes Rehab Potential: Good Time/GCodes Start Time: 12:55 Stop Time: 13:30 Total Time Billed (hr/min): 35 Billed Treatment Time visit, 15 minutes ADL, 20 minutes exercise KWAN CASILLAS OT Jun 06, 2018 13:46
[2018-06-06 17:19] VITALS: BP 134/76
[2018-06-07] MEDS: KCL 10 MEQ TAB (MICRO K) PO SCH (05:59)
[2018-06-07] MEDS: LEVOTHYROXINE 88 MCG (LEVOTHORID) TAB PO SCH (05:59)
[2018-06-07] MEDS: OMEGA 3 (FISH OIL) 1000 MG CAP PO SCH ×2 (06:00→17:04)
[2018-06-07 06:03] VITALS: BP 147/69
--- NOTE | 2018-06-07 08:29 | PM & R (SOAP) Progress Note ---
Subjective This was a face to face visit with the patient. Date Seen by Provider: Jun 07, 2018 Time Seen by Provider: 08:00 Subjective/Events-last exam Patient was seen in his room this AM Patient mod assist for transfers Objective Physician Exam Last Set of Vital Signs Vital Signs Date Time Temp Pulse Resp B/P (MAP) Pulse Ox O2 Delivery O2 Flow Rate FiO2 06/07/18 06:03 99.2 69 18 147/69 (95) 96 Room Air Capillary Refill : I&O Intake and Output 06/07/18 00:00 Intake Total 890 ml Output Total 650 ml Balance 240 ml Intake Oral 890 ml Output Urine Total 650 ml # Voids 4 General: Alert, Oriented X3, Cooperative, No Acute Distress HEENT: Atraumatic, PERRLA, EOMI, Mucous Memb Moist/[place] Neck: Supple, No JVD Lungs: Clear to Auscultation Heart: Regular Rate Abdomen: Normal Bowel Sounds, Soft, No Tenderness, Other (Plus edema) Neuro: Other (Sensation diminished from knees down to light touch Strength 2/5 at hips left knee flex and ext 3/5 Rt knee flex and ext 2/5) Psych/Mental Status: Mental Status NL Assessment/Plan Assessment and Plan General debil as a result of CA receiving chemo Peripheral neuropathy Peripheral edema improving HTN controlled with med Lumbar spondylosis SSS Plan Continue PT/OT Team Conference later today -see report for full functional update and POC and ELOS Co-Morbidities that are continuing to impact the rehab process: (include details ) DANNA LAWS MD Jun 07, 2018 08:29
[2018-06-07] MEDS: lisINopril 40 MG (PRINIVIL) TABLET PO SCH (08:34)
[2018-06-07] MEDS: NEBIVOLOL 5 MG TAB (BYSTOLIC) PO SCH (08:34)
[2018-06-07] MEDS: CELECOXIB 100 MG (CeleBREX) CAP PO SCH (08:34)
[2018-06-07] MEDS: FUROSEMIDE 40 MG (LASIX) TAB PO SCH (08:34)
[2018-06-07] MEDS: ASPIRIN E.C. 81 MG (ECOTRIN) TAB PO SCH (08:35)
[2018-06-07] MEDS: DOCUSATE SODIUM 100 MG (COLACE) CAP PO SCH (08:35)
--- NOTE | 2018-06-07 09:19 | Occupational Ther Daily Note ---
OT Current Status-Daily Note Subjective Pt in bathroom already in shower. Pt agrees to therapy. No c/o pain. Pt talking about people eating and making a lot of noise this morning around the [place] register. Reoriented pt to rehab. During treatment, pt c/o being tired and laid his head down on the table. BP taken 83/51, notified nrsg. Took pt back to room and laid down in bed. BP 134/70 in supine. Pt stated that he hadn 't had anything to eat today. Ordered food for pt. Mental Status/Objective Patient Orientation: Person, Time, Situation Therapy Code Descriptions/Definitions Functional [place] Measure: 0=Not Assessed/NA 4=Minimal Assistance 1=Total Assistance 5=Supervision or Setup 2=Maximal Assistance 6=Modified [place] 3=Moderate Assistance 7=Complete [place] ADL-Treatment Pt had transferred from toilet to shower by self, did not wait for assistance. Pt completed own shower using long handle sponge, shower bench, hand held shower and grabbars. Pt dried self a little then wanted to air dry the rest of the way. [facility]. After set up, pt was able to don/doff upper body clothing by self. Pt donned/doffed lower body clothing using AE, SBA when standing to hike own pants. Donned/doffed footwear by self. Pt took increased time to complete all tasks due to decreased activity tolerance and slow movements. Declined oral care or shaving. Therapy Code Descriptions/Definitions Functional [place] Measure: 0=Not Assessed/NA 4=Minimal Assistance 1=Total Assistance 5=Supervision or Setup 2=Maximal Assistance 6=Modified [place] 3=Moderate Assistance 7=Complete [place] Therapy Quality Codes: 6 Independent with activity with or without an assistive device 5 Patient requires set up or clean up by helper. Patient completes activity by themselves 4 Supervision or touching assist (CGA). [place] provide cues , steadying assist 3 The helper provides less than half the effort to complete the activity 2 The helper provides more than half the effort to complete the activity 1 Dependent. The helper does all the effort to complete an activity 7 Patient refused to complete or attempt activity 9 The patient did not perform the activity before the current illness or injury 88 Not attempted due to Medical conditions or safety concerns Eating (FIM): 7 (Pt able to open containers/packages by self then use regular utensils to eat with.) Eating (QC): 6 Bathing (FIM): 6 (Safety concerns) Bathing Location: L Arm, R Arm, L Upper Leg, R Upper Leg, L Lower Leg ( including foot), R Lower Leg (including foot), Chest, Abdomen, Buttocks, Perineal Area Shower/Bathe Self (QC): 6 Upper Body (FIM): 5 Upper Body Dressing (QC): 5 Lower Body Dressing (FIM): 5 Lower Body Dressing (QC): 4 On/Off Footwear (QC): 6 Toileting (FIM): 6 (Using grabbar and elevated seat, pt able to complete.) Toileting Hygiene (QC): 6 Toilet/Commode Transfer (FIM): 6 (Using grabbar and elevated seat, pt able to complete. Safety concerns.) Toilet Transfer (QC): 6 Shower Transfer(FIM): 4 (Pt transferred into shower by self then due to lower shower bench required min A due to LOB backward for sit to stand.) Other Treatment Pt ambulated to gym with SBA using FWW. Arm bike completed 10 min at 15 friend resistance with multiple recovery breaks. Pt then laid his head down and c/o of being very tired. Took BP and reported to nrsg. After therapy, pt lying in bed with call light/phone in reach. All needs met. OT Short Term Goals Short Term Goals Time Frame: Jun 08, 2018 Toilet/Commode Transfer(FIM): 5 (SBA) Additional Short Term Goals: 1-Demonstrate ADL Tasks, 2-Verbalize Understanding , 3-ImproveStrength/Abdulkadir 1=Demonstrate adherence to instructed precautions during ADL tasks. 2=Patient will verbalize/demonstrate understanding of assistive devices/ modifications for ADL. 3=Patient will improve strength/tolerance for activity to enable patient to perform ADL's. OT Director Nursing Service Goals Director Nursing Service Goals Time Frame: Jun 22, 2018 Eating (FIM): 7 Eating (QC): 6 Groomin Oral Hygiene (QC): 6 Bathing(FIM): 6 Shower/Bathe Self (QC): 6 Upper Body Dressing(FIM): 6 Upper Body Dressing (QC): 6 Lower Body Dressing(FIM): 6 Lower Body Dressing (QC): 6 On/Off Footwear (QC): 6 Toileting(FIM): 6 Toileting Hygiene (QC): 6 Toilet/Commode Transfer(FIM): 6 Toilet/Commode Transfer (QC): 6 Shower Transfer(FIM): 6 Comprehension(FIM): 6 Expression (FIM): 7 Social Interaction(FIM): 7 Problem Solving(FIM): 7 Memory(FIM): 7 Additional Goals: 1-Demonstrate ADL Tasks, 2-Verbalize Understanding, 3- ImproveStrength/Abdulkadir 1=Demonstrate adherence to instructed precautions during ADL tasks. 2=Patient will verbalize/demonstrate understanding of assistive devices/ modifications for ADL. 3=Patient will improve strength/tolerance for activity to enable patient to perform ADL's. OT Education/Plan Problem List/Assessment Pt would benefit from skilled OT to increase his independence in basic self care to allow him to safely return home Discharge Recommendations Plan/Recommendations: Continue POC Treatment Plan/Plan of Care Patient would benefit from OT for education, treatment and training to promote independence in ADL's, mobility, safety and/or upper extremity function for ADL' s. Plan of Care: ADL Retraining, Functional Mobility, Group Exercise/Act as Ind ( education, exercise, socialization, functional activities, activiity toleance), UE Funct Exercise/Act, UE Neuromus Re-Ed/Coord, OTHER (energy conservation education/practce) Treatment Duration: Jun 22, 2018 Frequency: At least 5 of 7 days/Wk (IRF) Estimated Hrs Per Day: 1.5 hours per day Agreement: Yes Rehab Potential: Good Time/GCodes Start Time: 09:00 Stop Time: 10:40 Total Time Billed (hr/min): 100 Billed Treatment Time 1 visit-ADL 6 (90 min) EX 1 (10 min) KRUPA WEI Jun 07, 2018 09:19
[2018-06-07 10:40] VITALS: BP 134/70
--- NOTE | 2018-06-07 11:59 | Physical Therapy Daily Note ---
PT Daily Note-Current Subjective Pt. up in recliner states he has had a rough morning, doesnt think he can work, "I passed out and I dont think any body knew it." " down there and again here in the room" . Pain Numeric Pain Scale: 0-No Pain Appearance groggy, wet jeans and under pants with urine Mental Status Patient Orientation: Listless Transfers Therapy Code Descriptions/Definitions Functional [place] Measure: 0=Not Assessed/NA 4=Minimal Assistance 1=Total Assistance 5=Supervision or Setup 2=Maximal Assistance 6=Modified [place] 3=Moderate Assistance 7=Complete [place] Therapy Quality Codes: 6 Independent with activity with or without an assistive device 5 Patient requires set up or clean up by helper. Patient completes activity by themselves 4 Supervision or touching assist (CGA). [place] provide cues , steadying assist 3 The helper provides less than half the effort to complete the activity 2 The helper provides more than half the effort to complete the activity 1 Dependent. The helper does all the effort to complete an activity 7 Patient refused to complete or attempt activity 9 The patient did not perform the activity before the current illness or injury 88 Not attempted due to Medical conditions or safety concerns Transfers (B, C, W/C) (FIM): 3 Scootin Rollin Supine to/from Sit: 3 Sit to/from Stand: 4 assist to roll in bed, assist with LEs in out bed x 3 TRF trials, sit to stand requires elevated seat height as well as min assist Gait Training Does the Patient Walk?: Yes Gait (FIM): 2 Distance (FIM): 2=174-23 ft (50ft,20ft) Gait Level of Assist: 4 Gait Persons Needed: 1 Gait Assistive Device: FWW in out bathroom , head down, shuffled feet, poor awareness Exercises Seated Therapy Exercises: Ankle pumps, Sit to stand, Long arc quads, Hip flexion Seated Reps: 10 Assessment Current Status: Fair Progress OT states pt. had an episode of hypotension and was not aware, groggy , was taken back to his room and then seemed to sleep. sup: 151/71, HR 61, O2 sats 97 %, resp 16 sittin/66, HR70, standin/67, HR 65 PT Short Term Goals Short Term Goals Time Frame: Jun 08, 2018 Gait (FIM): 4 Gait Distance Comment: 150' Gait Level of Assist: 4 Gait Assistive Device: FWW PT Care Home Goals Care Home Goals PT Color Print Inspector Goals Time Frame: Jun 22, 2018 Transfers (B,C,W/C) (FIM): 5 Sit to Lying (QC): 4 Lying-Sitting on Side/Bed(QC): 4 Sit to Stand (QC): 4 Rollin Roll Left to Right (QC): 4 Chair/Uqr-wa-Qpalr Xfer(QC): 4 Car Transfer (QC): 4 Gait (FIM): 5 Distance: 200' Walk 10 feet (QC): 4 Walk 10ft-Uneven Surface(QC): 4 Walk 50ft with 2 Turns (QC): 4 Walk 150 ft (QC): 4 Gait Level of Assist: 5 Gait Assistive Device: FWW Stairs (FIM): 1 # of Steps: 1 1 Step (curb) (QC): 4 Stairs Level Of Assist: 4 PT Plan Treatment/Plan Treatment Plan: Continue Plan of Care Treatment Plan: Bed Mobility, Education, Functional Activity Abdulkadir, Functional Strength, Group Therapy, Gait, Safety, Therapeutic Exercise, Transfers Treatment Duration: Jun 22, 2018 Frequency: At least 5 of 7 days/Wk (IRF) Estimated Hrs Per Day: 1.5 hours per day Patient and/or Family Agrees t: Yes Safety Risks/Education Patient Education: Gait Training, Transfer Techniques, Correct Positioning, Disease Process, Safety Issues Teaching Recipient: Patient Teaching Methods: Demonstration, Discussion Response to Teaching: Verbalize Understanding, Return Demonstration, Reinforcement Needed Time/GCodes Time In: 1100 Time Out: 1200 Total Billed Treatment Time: 60 Total Billed Treatment 1,EX20,FA40 G Codes Necessary: NEIL Do COMPOSITION INSTRUCTOR Jun 07, 2018 11:59
[2018-06-07 12:00] VITALS: BP 126/63
[2018-06-07] MEDS: ENOXAPARIN 40 MG/0.4 ML (LOVENOX) SYR SC SCH (12:31)
--- NOTE | 2018-06-07 14:40 | Physical Therapy Daily Note ---
PT Daily Note-Current Subjective Pt. states he feels much better this afternoon and is willing to do his Rx but also states he feels he should pursue looking in to FT care of some sort after his DC. Pt. then mentioned his cancer marie and had some tears. Pain Numeric Pain Scale: 0-No Pain Mental Status Patient Orientation: Person, Place, Time, Situation Transfers Therapy Code Descriptions/Definitions Functional [place] Measure: 0=Not Assessed/NA 4=Minimal Assistance 1=Total Assistance 5=Supervision or Setup 2=Maximal Assistance 6=Modified [place] 3=Moderate Assistance 7=Complete [place] Therapy Quality Codes: 6 Independent with activity with or without an assistive device 5 Patient requires set up or clean up by helper. Patient completes activity by themselves 4 Supervision or touching assist (CGA). [place] provide cues , steadying assist 3 The helper provides less than half the effort to complete the activity 2 The helper provides more than half the effort to complete the activity 1 Dependent. The helper does all the effort to complete an activity 7 Patient refused to complete or attempt activity 9 The patient did not perform the activity before the current illness or injury 88 Not attempted due to Medical conditions or safety concerns all sit to stand CGA, sup to sit mod assist LEs Gait Training Gait (FIM): 4 Distance (FIM): 3=150 ft (160x2) Gait Level of Assist: 4 Gait Persons Needed: 1 Gait Assistive Device: FWW instruction for head up and position in FWW Exercises NuStep Minutes: 11 NuStep Workload: 3 Assessment Current Status: Fair Progress at risk for falls, dependent for safety PT Short Term Goals Short Term Goals Time Frame: Jun 08, 2018 Gait (FIM): 4 Gait Distance Comment: 150' Gait Level of Assist: 4 Gait Assistive Device: FWW PT Flat Cutter Goals Flat Cutter Goals PT Flat Cutter Goals Time Frame: Jun 22, 2018 Transfers (B,C,W/C) (FIM): 5 Sit to Lying (QC): 4 Lying-Sitting on Side/Bed(QC): 4 Sit to Stand (QC): 4 Rollin Roll Left to Right (QC): 4 Chair/Egd-vo-Smvaq Xfer(QC): 4 Car Transfer (QC): 4 Gait (FIM): 5 Distance: 200' Walk 10 feet (QC): 4 Walk 10ft-Uneven Surface(QC): 4 Walk 50ft with 2 Turns (QC): 4 Walk 150 ft (QC): 4 Gait Level of Assist: 5 Gait Assistive Device: FWW Stairs (FIM): 1 # of Steps: 1 1 Step (curb) (QC): 4 Stairs Level Of Assist: 4 PT Plan Treatment/Plan Treatment Plan: Continue Plan of Care Treatment Plan: Bed Mobility, Education, Functional Activity Abdulkadir, Functional Strength, Group Therapy, Gait, Safety, Therapeutic Exercise, Transfers Treatment Duration: Jun 22, 2018 Frequency: At least 5 of 7 days/Wk (IRF) Estimated Hrs Per Day: 1.5 hours per day Patient and/or Family Agrees t: Yes Safety Risks/Education Patient Education: Gait Training, Transfer Techniques, Correct Positioning, Disease Process, Safety Issues Teaching Recipient: Patient Teaching Methods: Demonstration Response to Teaching: Verbalize Understanding, Return Demonstration, Reinforcement Needed Time/GCodes Time In: 1405 Time Out: 1435 Total Billed Treatment Time: 30 Total Billed Treatment 1,EX12,GT18 G Codes Necessary: NEIL Do DIRT SHOVELER Jun 07, 2018 14:40
--- NOTE | 2018-06-07 16:11 | Consultation-Cardiology ---
HPI-Cardiology Cardiology Consultation Date of Consultation 06/07/18 Date of Admission Time Seen by Provider: 16:09 Indication: Labile HTN HPI Patient is a 78 y/o male with history of CAD, labile HTN. Currently in IRF for generalized weakness. Had episode of hypotension with dizziness this morning while receiving physical therapy. Now improved. Patient states he had not had breakfast this morning before PT. Denies any CP, dyspnea, dizziness or lightheadedness. No other complaints at this time. Home Medications & Allergies Allergies: Coded Allergies: No Known Drug Allergies (Unverified , 11/09/17) Home Medication List Reviewed: Yes [id number] Hx Patient Social History Marital Status: single Employed/Student: retired (33 years at [employer]) Alcohol Use: Denies Use Recreational Drug Use: No Smoking Status: Former Smoker Former smoker/When Quit: Oct 20, 1966 Type Used: Cigarettes 2nd Hand Smoke Exposure: No Recent Foreign Travel: No Recent Infectious Disease Expo: No Recent Hopitalizations: Yes ([employer]) Physical Abuse Screen: No Sexual Abuse: No Immunizations Up To Date Tetanus Booster (TDap): Unknown Date of Pneumonia Vaccine: Apr 19, 2016 Date of Influenza Vaccine: Mar 24, 2018 Family Medical History Significant Family History: No Pertinent Family Hx Review of Systems Constitutional: No chills, No diaphoresis, No fever, No malaise; weakness EENTM: No ear pain, No vision loss, No epistaxis, No nose congestion Respiratory: No cough, No dyspnea on exertion Cardiovascular: No chest pain, No edema, No palpitations Gastrointestinal: No abdominal pain, No constipation Genitourinary: No frequency, No hematuria Musculoskeletal: No back pain Skin: No change in color, No lesions, No rash Psychiatric/Neurological: Denies Numbness ECG Impression ECG Initial ECG Rhythm: S.Ruddy Physical Exam Vital Signs Vital Signs - First Documented 06/01/18 09:40 Temp 98.6 Pulse 62 Resp 18 B/P (MAP) 108/63 (78) Pulse Ox 93 O2 Delivery Room Air Capillary Refill : Height, Weight, BMI Height: 5'11.00" Weight: 181lbs. 4.8oz. 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 Receiving physical therapy Labile hypertension- patient has history of resistant HTN, labile blood pressure. Had hypotensive episode x 1 this morning while receiving physical therapy. Improved. I will decrease lisinopril, continue to monitor blood pressure, we'll consider cutting down the beta blockers if needed Bradycardia secondary to medication, has history of underlying sinus node dysfunction that was worsening with medication, his baseline heart rate is between 40 and 50. Patient has been asymptomatic with this heart rate as an outpatient. I will consider decreasing the beta redd if needed. 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 Medical therapy was recommended. Continue to monitor Renal ultrasound was done in November 2016 showing normal bilateral kidneys with no significance disease in the renal arteries, continue to monitor Melanoma stage III D, status post excision from the left arm and left axillary dissection, received immunotherapy, no radiation, followed by Dr. King Lipid profile was done in November 2017 showing total cholesterol 177, HDL 48, LDL 115, triglyceride 80, continue to monitor. Osteoarthritis, maintained on Celebrex which could be affecting negatively the blood pressure Extensive surgical history, in November 2015 underwent repair of bowel due to complication of hernia surgery and removal of infected mesh surgery. History of laminectomy, neck surgery for spinal stenosis, radical prostatectomy , carpal tunnel surgery. Mild bilateral carotid stenosis, ultrasound was done in December 2017, continue to monitor. Thank you for allowing us to participate in the management of Mr. Burgess. This is Rox Morales PA-C, as a scribe for Dr. Blas. This is Dr. Blas, I have seen and evaluated the patient with Rox, has been complaining of generalized weakness and loss of energy. Denied any chest pain. No palpitation, has labile blood pressure. Had a hypotensive episode this morning. On examination lungs were clear to auscultation bilaterally, heart is slightly bradycardic. I will decrease his lisinopril to 10 mg daily and monitor his blood pressure tolerance and response, we can cut down his beta blockers if needed. I did review the operative note and agree with the current scribed note, made few modifications using Italic Font Clinical Quality Measures DVT/VTE Risk/Contraindication: Risk Factor Score Per Nursin RFS Level Per Nursing on Admit: 4+=Very High ROX HOLLIS Jun 07, 2018 4:11 pm TIERRA BLAS MD Jun 07, 2018 5:30 pm
[2018-06-07 17:10] VITALS: BP 137/67
[2018-06-08 06:00] VITALS: BP 153/72
[2018-06-08] MEDS: KCL 10 MEQ TAB (MICRO K) PO SCH (06:26)
[2018-06-08] MEDS: LEVOTHYROXINE 88 MCG (LEVOTHORID) TAB PO SCH (06:26)
[2018-06-08] MEDS: OMEGA 3 (FISH OIL) 1000 MG CAP PO SCH ×2 (06:26→16:41)
--- NOTE | 2018-06-08 09:16 | Occupational Ther Daily Note ---
OT Current Status-Daily Note Subjective Pt dozing in bed, woke easily. Pt c/o pain in back though stated it has decreased since taking pain medications. Pt agrees to therapy. Mental Status/Objective Patient Orientation: Person, Place, Time, Situation Therapy Code Descriptions/Definitions Functional [place] Measure: 0=Not Assessed/NA 4=Minimal Assistance 1=Total Assistance 5=Supervision or Setup 2=Maximal Assistance 6=Modified [place] 3=Moderate Assistance 7=Complete [place] Attachments: IV ADL-Treatment Supine <-->sit, mod I. Ambulated to bathroom and stood to urinate, independent. Transferred to shower, mod I with grabbars and shower bench. Mod I for shower using long handle sponge, hand held shower, grabbar and shower bench. Pt is able to wash under stomach by self. Pt sat on EOB to don lower body clothing. Unable to don socks due to increase edema, assist to complete. Went to discuss with nrsg and CHELSEA hose were recommended. Attempted to don CHELSEA hose would not fit due to increased swelling. Wrapped each lower leg with 2 NOREEN wraps and elevated LE's above heart. Pt takes increased time to complete tasks due to increase SOA and decreased activity tolerance. After therapy, pt lying in bed with call light/phone in reach. Nrsg present in room. Therapy Code Descriptions/Definitions Functional [place] Measure: 0=Not Assessed/NA 4=Minimal Assistance 1=Total Assistance 5=Supervision or Setup 2=Maximal Assistance 6=Modified [place] 3=Moderate Assistance 7=Complete [place] Therapy Quality Codes: 6 Independent with activity with or without an assistive device 5 Patient requires set up or clean up by helper. Patient completes activity by themselves 4 Supervision or touching assist (CGA). [place] provide cues , steadying assist 3 The helper provides less than half the effort to complete the activity 2 The helper provides more than half the effort to complete the activity 1 Dependent. The helper does all the effort to complete an activity 7 Patient refused to complete or attempt activity 9 The patient did not perform the activity before the current illness or injury 88 Not attempted due to Medical conditions or safety concerns Bathing (FIM): 6 Bathing Location: L Arm, R Arm, L Upper Leg, R Upper Leg, L Lower Leg ( including foot), R Lower Leg (including foot), Chest, Abdomen, Buttocks, Perineal Area Shower/Bathe Self (QC): 6 Toilet/Commode Transfer (FIM): 6 Toilet Transfer (QC): 6 Shower Transfer(FIM): 6 OT Short Term Goals Short Term Goals Time Frame: Jun 08, 2018 Toilet/Commode Transfer(FIM): 5 (SBA) Additional Short Term Goals: 1-Demonstrate ADL Tasks, 2-Verbalize Understanding , 3-ImproveStrength/Abdulkadir 1=Demonstrate adherence to instructed precautions during ADL tasks. 2=Patient will verbalize/demonstrate understanding of assistive devices/ modifications for ADL. 3=Patient will improve strength/tolerance for activity to enable patient to perform ADL's. OT Fpc Goals Fpc Goals Time Frame: Jun 22, 2018 Eating (FIM): 7 Eating (QC): 6 Groomin Oral Hygiene (QC): 6 Bathing(FIM): 6 Shower/Bathe Self (QC): 6 Upper Body Dressing(FIM): 6 Upper Body Dressing (QC): 6 Lower Body Dressing(FIM): 6 Lower Body Dressing (QC): 6 On/Off Footwear (QC): 6 Toileting(FIM): 6 Toileting Hygiene (QC): 6 Toilet/Commode Transfer(FIM): 6 Toilet/Commode Transfer (QC): 6 Shower Transfer(FIM): 6 Comprehension(FIM): 6 Expression (FIM): 7 Social Interaction(FIM): 7 Problem Solving(FIM): 7 Memory(FIM): 7 Additional Goals: 1-Demonstrate ADL Tasks, 2-Verbalize Understanding, 3- ImproveStrength/Abdulkadir 1=Demonstrate adherence to instructed precautions during ADL tasks. 2=Patient will verbalize/demonstrate understanding of assistive devices/ modifications for ADL. 3=Patient will improve strength/tolerance for activity to enable patient to perform ADL's. OT Education/Plan Problem List/Assessment Pt would benefit from skilled OT to increase his independence in basic self care to allow him to safely return home Discharge Recommendations Plan/Recommendations: Continue POC Treatment Plan/Plan of Care Patient would benefit from OT for education, treatment and training to promote independence in ADL's, mobility, safety and/or upper extremity function for ADL' s. Plan of Care: ADL Retraining, Functional Mobility, Group Exercise/Act as Ind ( education, exercise, socialization, functional activities, activiity toleance), UE Funct Exercise/Act, UE Neuromus Re-Ed/Coord, OTHER (energy conservation education/practce) Treatment Duration: Jun 22, 2018 Frequency: At least 5 of 7 days/Wk (IRF) Estimated Hrs Per Day: 1.5 hours per day Agreement: Yes Rehab Potential: Good Time/GCodes Start Time: 08:00 Stop Time: 09:00 Total Time Billed (hr/min): 60 Billed Treatment Time 1 visit-ADL 4 (60 min) KRUPA WEI Jun 08, 2018 09:16
[2018-06-08 09:20] VITALS: BP 155/65
[2018-06-08] MEDS: FUROSEMIDE 40 MG (LASIX) TAB PO SCH (09:20)
[2018-06-08] MEDS: CELECOXIB 100 MG (CeleBREX) CAP PO SCH (09:21)
[2018-06-08] MEDS: lisINopril 10 MG (PRINIVIL) TABLET PO SCH (09:21)
[2018-06-08] MEDS: ASPIRIN E.C. 81 MG (ECOTRIN) TAB PO SCH (09:21)
[2018-06-08] MEDS: NEBIVOLOL 5 MG TAB (BYSTOLIC) PO SCH (09:21)
[2018-06-08] MEDS: DOCUSATE SODIUM 100 MG (COLACE) CAP PO SCH (09:22)
--- NOTE | 2018-06-08 09:51 | Physical Therapy Daily Note ---
PT Daily Note-Current Subjective Pt reports no new c/o's Pain Comment: generalized all over, no rating given Appearance Pt supine in bed asleep upon arrival, easily aroused but with some confusion of where he was, how he got there and how long he'd been there. Confusion cleared within 5-10 minutes. At end of session, pt R side lying in bed, radiology present, call light within reach. Transfers Therapy Code Descriptions/Definitions Functional [place] Measure: 0=Not Assessed/NA 4=Minimal Assistance 1=Total Assistance 5=Supervision or Setup 2=Maximal Assistance 6=Modified [place] 3=Moderate Assistance 7=Complete [place] Therapy Quality Codes: 6 Independent with activity with or without an assistive device 5 Patient requires set up or clean up by helper. Patient completes activity by themselves 4 Supervision or touching assist (CGA). [place] provide cues , steadying assist 3 The helper provides less than half the effort to complete the activity 2 The helper provides more than half the effort to complete the activity 1 Dependent. The helper does all the effort to complete an activity 7 Patient refused to complete or attempt activity 9 The patient did not perform the activity before the current illness or injury 88 Not attempted due to Medical conditions or safety concerns Transfers (B, C, W/C) (FIM): 4 Scootin Rollin Roll Left to Right (QC): 5 Supine to/from Sit: 4 Sit to/from Stand: 4 Sit to Lying (QC): 4 Sit to Stand (QC): 4 CGA to SBA with sit to/from stand transfers from elevated recliner chair and elevated bed. Min assist required sit to from stand from low level bed and with supine to and from sit with bilat LE's. Today, pt stating that he can't do it even before trying. Encouragement given but pt still required physical assist Weight Bearing Right Lower Extremity: Right Full Weight Bearing Left Lower Extremity: Left Full Weight Bearing Gait Training Does the Patient Walk?: Yes Gait (FIM): 5 Distance (FIM): 3=150 ft Distance: 120,250,115 Walk 10 feet (QC): 5 Walk 50 ft with 2 Turns(QC): 5 Walk 150 ft (QC): 5 Gait Level of Assist: 5 Gait Persons Needed: 1 Gait Assistive Device: FWW SBA during gait for endurance, decreased step length and height, shuffling at times, kyphotic posture with fwd head, verb inst and encouragement to improve posture CGA to SBA working on increasing step length and height, pt improved gait quality with instruction and encouragement, but reinstruction required several times Exercises Seated Therapy Exercises: Ankle pumps, Sit to stand, Long arc quads, Hip flexion, Hip abd/add Seated Reps: 10 Standing: Marching, Sit to Stand (x10 elevated seat recliner, x5 lowest level EOB), Unilateral stance, Weight shifts Standing Reps: 10 mod to max assist with LE's on and off NuStep pedals NuStep Minutes: 11 NuStep Workload: 4 Treatments transfer and gait training, exercises Assessment Current Status: Fair Progress pt is self limiting at times, mod encouragement required PT Short Term Goals Short Term Goals Time Frame: Jun 08, 2018 Gait (FIM): 4 Gait Distance Comment: 150' Gait Level of Assist: 4 Gait Assistive Device: FWW PT Care Home Goals Care Home Goals PT 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 Shop Supervisor Goals Time Frame: Jun 22, 2018 Transfers (B,C,W/C) (FIM): 5 Sit to Lying (QC): 4 Lying-Sitting on Side/Bed(QC): 4 Sit to Stand (QC): 4 Rollin Roll Left to Right (QC): 4 Chair/Elg-ju-Lrqem Xfer(QC): 4 Car Transfer (QC): 4 Gait (FIM): 5 Distance: 200' Walk 10 feet (QC): 4 Walk 10ft-Uneven Surface(QC): 4 Walk 50ft with 2 Turns (QC): 4 Walk 150 ft (QC): 4 Gait Level of Assist: 5 Gait Assistive Device: FWW Stairs (FIM): 1 # of Steps: 1 1 Step (curb) (QC): 4 Stairs Level Of Assist: 4 PT Plan Problem List Problem List: Activity Tolerance, Functional Strength, Safety, Balance, Gait, Transfer, Bed Mobility, ROM Treatment/Plan Treatment Plan: Continue Plan of Care Treatment Plan: Bed Mobility, Education, Functional Activity Abdulkadir, Functional Strength, Group Therapy, Gait, Safety, Therapeutic Exercise, Transfers Treatment Duration: Jun 22, 2018 Frequency: At least 5 of 7 days/Wk (IRF) Estimated Hrs Per Day: 1.5 hours per day Patient and/or Family Agrees t: Yes Safety Risks/Education Patient Education: Gait Training, Transfer Techniques, Safety Issues Teaching Recipient: Patient Teaching Methods: Demonstration, Discussion Response to Teaching: Verbalize Understanding, Return Demonstration, Reinforcement Needed continues to require re instruction for safety and hand placement during transitions at times Time/GCodes Time In: 755 Time Out: 855 Total Billed Treatment Time: 60 Total Billed Treatment 1 visit GT 15 min EX 15 min FA 30 min SCOTTY KHAN PTA Jun 08, 2018 09:51
--- NOTE | 2018-06-08 11:08 | Cardiology Progress Note ---
Subjective Date Seen by Provider: Jun 08, 2018 Time Seen by Provider: 11:06 Subjective/Events-last exam Patient receiving physical therapy, no new complaints. Denies any further episode of dizziness. BP is well controlled. Objective-Cardiology Exam Last Set of Vital Signs Vital Signs 06/08/18 06/08/18 06:00 09:00 Temp 99.1 Pulse 73 Resp 18 B/P (MAP) 153/72 (99) Pulse Ox 92 O2 Delivery Room Air Capillary Refill : I&O Intake and Output 06/08/18 00:00 Intake Total 1290 ml Output Total 900 ml Balance 390 ml Intake Oral 1290 ml Output Urine Total 900 ml # Voids 3 # Bowel Movements 1 General: Alert, Oriented X3, Cooperative, No Acute Distress HEENT: Atraumatic, PERRLA, EOMI, Mucous Memb Moist/[place] Neck: Supple, No JVD Lungs: Clear to Auscultation Heart: Regular Rate Abdomen: Normal Bowel Sounds, Soft, No Tenderness, Other (Plus edema) Neuro: Other (Sensation diminished from knees down to light touch Strength 2/5 at hips left knee flex and ext 3/5 Rt knee flex and ext 2/5) Psych/Mental Status: Mental Status NL A/P-Cardiology Admission Diagnosis Labile HTN generalized weakness CAD Assessment/Plan Generalized weakness and loss of energy. Receiving physical therapy Labile hypertension- patient has history of resistant HTN, labile blood pressure. Had hypotensive episode x 1 yesterday, improved, continue to monitor. Patient is wearing CHELSEA hose. Bradycardia secondary to medication, has history of underlying sinus node dysfunction that was worsening with medication, his baseline heart rate is between 40 and 50. Patient has been asymptomatic with this heart rate as an outpatient. Consider decreasing beta redd if needed. 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 Medical therapy was recommended. Continue to monitor Renal ultrasound was done in November 2016 showing normal bilateral kidneys with no significance disease in the renal arteries, continue to monitor Melanoma stage III D, status post excision from the left arm and left axillary dissection, received immunotherapy, no radiation, followed by Dr. King Lipid profile was done in November 2017 showing total cholesterol 177, HDL 48, LDL 115, triglyceride 80, continue to monitor. Osteoarthritis, maintained on Celebrex which could be affecting negatively the blood pressure Extensive surgical history, in November 2015 underwent repair of bowel due to complication of hernia surgery and removal of infected mesh surgery. History of laminectomy, neck surgery for spinal stenosis, radical prostatectomy , carpal tunnel surgery. Mild bilateral carotid stenosis, ultrasound was done in December 2017, continue to monitor. Clinical Quality Measures DVT/VTE Risk/Contraindication: Risk Factor Score Per Nursin RFS Level Per Nursing on Admit: 4+=Very High SKYLA HOLLIS Jun 08, 2018 11:08
--- NOTE | 2018-06-08 11:31 | Cardiology Progress Note ---
Subjective Date Seen by Provider: Jun 08, 2018 Time Seen by Provider: 11:30 Subjective/Events-last exam Patient is sitting in a chair, feeling well. Denied any chest pain or shortness of breath Review of Systems General: No Chills, No Night Sweats, No Fatigue, No Malaise, No Appetite, No Other HEENT: No Head Aches, No Visual Changes, No Eye Pain, No Ear Pain, No Dysphasia , No Sinus Congestion, No Post Nasal Drip, No Sore Throat, No Other Pulmonary: No Dyspnea, No Cough, No Pleuritic Chest Pain, No Other Cardiovascular: No: Chest Pain, Palpitations, Orthopnea, Paroxysmal Noc. Dyspnea, Edema, Lt Headedness, Other Objective-Cardiology Exam Last Set of Vital Signs Vital Signs 06/08/18 06/08/18 06:00 09:00 Temp 99.1 Pulse 73 Resp 18 B/P (MAP) 153/72 (99) Pulse Ox 92 O2 Delivery Room Air Capillary Refill : I&O Intake and Output 06/08/18 00:00 Intake Total 1290 ml Output Total 900 ml Balance 390 ml Intake Oral 1290 ml Output Urine Total 900 ml # Voids 3 # Bowel Movements 1 General: Alert, Oriented X3, Cooperative, No Acute Distress HEENT: Atraumatic, PERRLA, EOMI, Mucous Memb Moist/[place] Neck: Supple, No JVD Lungs: Clear to Auscultation Heart: Regular Rate Abdomen: Normal Bowel Sounds, Soft, No Tenderness, Other (Plus edema) Extremities: No Clubbing, No Cyanosis Neuro: Normal Speech, Other (Sensation diminished from knees down to light touch Strength 2/5 at hips left knee flex and ext 3/5 Rt knee flex and ext 2/5) Psych/Mental Status: Mental Status NL A/P-Cardiology Admission Diagnosis Labile HTN generalized weakness CAD Assessment/Plan Generalized weakness and loss of energy. Receiving physical therapy and improving Labile hypertension- patient has history of resistant HTN, labile blood pressure. Had hypotensive episode x 1 yesterday, improved, continue to monitor. Patient is wearing CHELSEA hose. Bradycardia secondary to medication, has history of underlying sinus node dysfunction that was worsening with medication, his baseline heart rate is between 40 and 50. Patient has been asymptomatic with this heart rate as an outpatient. Consider decreasing beta redd if needed. 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 Medical therapy was recommended. Continue to monitor Renal ultrasound was done in November 2016 showing normal bilateral kidneys with no significance disease in the renal arteries, continue to monitor Melanoma stage III D, status post excision from the left arm and left axillary dissection, received immunotherapy, no radiation, followed by Dr. King Lipid profile was done in November 2017 showing total cholesterol 177, HDL 48, LDL 115, triglyceride 80, continue to monitor. Osteoarthritis, maintained on Celebrex which could be affecting negatively the blood pressure Extensive surgical history, in November 2015 underwent repair of bowel due to complication of hernia surgery and removal of infected mesh surgery. History of laminectomy, neck surgery for spinal stenosis, radical prostatectomy , carpal tunnel surgery. Mild bilateral carotid stenosis, ultrasound was done in December 2017, continue to monitor. Clinical Quality Measures DVT/VTE Risk/Contraindication: Risk Factor Score Per Nursin RFS Level Per Nursing on Admit: 4+=Very High TIERRA MARIN MD Jun 08, 2018 11:31
--- NOTE | 2018-06-08 11:32 | Occupational Ther Daily Note ---
OT Current Status-Daily Note Subjective Pt seen in room, up in bed, agreeable to OT. No pain mentioned Appearance Alert, cooperative, confused Mental Status/Objective Therapy Code Descriptions/Definitions Functional [place] Measure: 0=Not Assessed/NA 4=Minimal Assistance 1=Total Assistance 5=Supervision or Setup 2=Maximal Assistance 6=Modified [place] 3=Moderate Assistance 7=Complete [place] ADL-Treatment Pt declined shower since he had one yesterday.Struggled a little moving supine to sit EOB. No dizziness or lightheadedness. Now has CHELSEA hose on. Some assist to rub on lotion due to itchiness and dry skin (R hand has fingers with flexion contractures). Able to doff gown and put on t shirt with setup. Able to put shoes on with difficulty lifting feet manually to put into shoes, then used emergency operator to finish getting them on. Able to tie them slowly. Pt needed to toilet and required several trials to get up out of bed to walk with FWW to bathroom. He had Depends on and wasn't able to problem-solve how to manage pants and brief to stand at the toilet to urinate. Required help to pull pants down over hips and back up over bottom. He expressed surprise at his personal care items at the sink and said, "It looks like they brought them down last night." He also thought that he had worked on an activity last night but therapy wasn't here. Pt washed hands at sink with SBA, FWW. Therapy Code Descriptions/Definitions Functional [place] Measure: 0=Not Assessed/NA 4=Minimal Assistance 1=Total Assistance 5=Supervision or Setup 2=Maximal Assistance 6=Modified [place] 3=Moderate Assistance 7=Complete [place] Therapy Quality Codes: 6 Independent with activity with or without an assistive device 5 Patient requires set up or clean up by helper. Patient completes activity by themselves 4 Supervision or touching assist (CGA). [place] provide cues , steadying assist 3 The helper provides less than half the effort to complete the activity 2 The helper provides more than half the effort to complete the activity 1 Dependent. The helper does all the effort to complete an activity 7 Patient refused to complete or attempt activity 9 The patient did not perform the activity before the current illness or injury 88 Not attempted due to Medical conditions or safety concerns Grooming (FIM): 5 (SBA) Toileting (FIM): 2 (Help with pants up and pants down) Other Treatment Pt walked slowly to gym, cues to get closer to walker. He completed nuts and bolts activity with 1# weight on each arm, modifying it due to decreased shoulder movement. To help strengthen arms for ADLs and transfers. He required several trials to get back up from chair with arm and then walked back to room, close SBA for safety. Pt got into recliner and was left up in chair, chair alarm on, all needs met, ordering lunch. Education OT Patient Education: Exercise program, Modified ADL techniques, Progress toward Goal/Update tx plan, Purpose of tx/functional activities, Safety issues, Transfer techniques Teaching Recipient: Patient Teaching Methods: Demonstration, Discussion Response to Teaching: Verbalize Understanding, Return Demonstration, Reinforcement Needed OT Short Term Goals Short Term Goals Time Frame: Jun 08, 2018 Toilet/Commode Transfer(FIM): 5 (SBA) Additional Short Term Goals: 1-Demonstrate ADL Tasks, 2-Verbalize Understanding , 3-ImproveStrength/Abdulkadir 1=Demonstrate adherence to instructed precautions during ADL tasks. 2=Patient will verbalize/demonstrate understanding of assistive devices/ modifications for ADL. 3=Patient will improve strength/tolerance for activity to enable patient to perform ADL's. OT Assisted Goals Direct Support Professional Goals Time Frame: Jun 22, 2018 Eating (FIM): 7 Eating (QC): 6 Groomin Oral Hygiene (QC): 6 Bathing(FIM): 6 Shower/Bathe Self (QC): 6 Upper Body Dressing(FIM): 6 Upper Body Dressing (QC): 6 Lower Body Dressing(FIM): 6 Lower Body Dressing (QC): 6 On/Off Footwear (QC): 6 Toileting(FIM): 6 Toileting Hygiene (QC): 6 Toilet/Commode Transfer(FIM): 6 Toilet/Commode Transfer (QC): 6 Shower Transfer(FIM): 6 Comprehension(FIM): 6 Expression (FIM): 7 Social Interaction(FIM): 7 Problem Solving(FIM): 7 Memory(FIM): 7 Additional Goals: 1-Demonstrate ADL Tasks, 2-Verbalize Understanding, 3- ImproveStrength/Abdulkadir 1=Demonstrate adherence to instructed precautions during ADL tasks. 2=Patient will verbalize/demonstrate understanding of assistive devices/ modifications for ADL. 3=Patient will improve strength/tolerance for activity to enable patient to perform ADL's. OT Education/Plan Problem List/Assessment Pt would benefit from skilled OT to increase his independence in basic self care to allow him to safely return home Discharge Recommendations Plan/Recommendations: Continue POC Treatment Plan/Plan of Care Patient would benefit from OT for education, treatment and training to promote independence in ADL's, mobility, safety and/or upper extremity function for ADL' s. Plan of Care: ADL Retraining, Functional Mobility, Group Exercise/Act as Ind ( education, exercise, socialization, functional activities, activiity toleance), UE Funct Exercise/Act, UE Neuromus Re-Ed/Coord, OTHER (energy conservation education/practce) Treatment Duration: Jun 22, 2018 Frequency: At least 5 of 7 days/Wk (IRF) Estimated Hrs Per Day: 1.5 hours per day Agreement: Yes Rehab Potential: Good Time/GCodes Start Time: 10:00 Stop Time: 11:00 Total Time Billed (hr/min): 60 Billed Treatment Time visit, 35 minutes ADL, 25 minutes exercise KWAN CASILLAS OT Jun 08, 2018 11:32
[2018-06-08] MEDS: ENOXAPARIN 40 MG/0.4 ML (LOVENOX) SYR SC SCH (12:09)
--- NOTE | 2018-06-08 13:47 | PM & R (SOAP) Progress Note ---
Subjective This was a face to face visit with the patient. Date Seen by Provider: Jun 08, 2018 Time Seen by Provider: 11:45 Subjective/Events-last exam Patient was seen in his room this AM No further hypotensive episodes with adjustment in meds and with GILDARDO hose ordered lisinopril decreased in dose Appreciate cardiology note and orders.Patient min assist for transfers Date Identified: Jun 08, 2018 Time Identified: 11:45 Medication Intervention: Lisinopril decreased Review of Systems Neurological: Weakness, Confusion Objective Physician Exam Last Set of Vital Signs Vital Signs Date Time Temp Pulse Resp B/P (MAP) Pulse Ox O2 Delivery O2 Flow Rate FiO2 06/08/18 09:00 Room Air 06/08/18 06:00 99.1 73 18 153/72 (99) 92 Capillary Refill : I&O Intake and Output 06/08/18 00:00 Intake Total 1290 ml Output Total 900 ml Balance 390 ml Intake Oral 1290 ml Output Urine Total 900 ml # Voids 3 # Bowel Movements 1 General: Alert, Oriented X3, Cooperative, No Acute Distress HEENT: Atraumatic, PERRLA, EOMI, Mucous Memb Moist/[place] Neck: Supple, No JVD Lungs: Clear to Auscultation Heart: Regular Rate Abdomen: Normal Bowel Sounds, Soft, No Tenderness, Other (Plus edema) Extremities: No Clubbing, No Cyanosis Neuro: Normal Speech, Other (Sensation diminished from knees down to light touch Strength 2/5 at hips left knee flex and ext 3/5 Rt knee flex and ext 2/5) Psych/Mental Status: Mental Status NL Assessment/Plan Assessment and Plan general debil as a result of CA receiving chemo Peripheral neuropathy Peripheral edema HTN with episode of hypotension improved with adjustment in meds and Gildardo Hose Lumbar spondylosis SSS Plan Continue PT/OT Monitor for any further episodes of hypotension F/U with Cardiology prn Team Conference held yesterday-see report for full functional update and POC and ELOS Co-Morbidities that are continuing to impact the rehab process: (include details ) DANNA LAWS MD Jun 08, 2018 13:47
--- NOTE | 2018-06-08 14:29 | Therapy Group Daily Note ---
Therapy Daily Group Note Patient Education Topic Other List Below (memory) Exercises LE Seated Exercise, UE Exercise Other/Notes Pt ambulated with CGA using W gym <-->room for OT group. Group consisted of introductions (name, place living, reason for being in ARU), socialization, ARU description, LE/UE seated exercises, memory education/strategies and memory activities. Pt required prompts to introduce self. Throughout group pt would make sarcastic remarks to participate in group, had difficulty following flow of group without prompts. Pt able to complete UE/LE seated exercises by self. Pt listened to peers then remark at a statement, but did not initiate conversations or answers to question. Pt listened and attempted to complete tasks. After therapy, pt sitting in recliner with call light/phone in reach. All needs met in room. Start Time: 13:00 Stop Time: 14:10 Total Billed Treatment Time: 70 Total Billed Treatment 1-GRP KRUPA WEI Jun 08, 2018 14:29
--- NOTE | 2018-06-08 15:30 | Progress Note-Hospitalist ---
Subjective HPI/CC On Admission Date Seen by Provider: Jun 08, 2018 Time Seen by Provider: 15:27 CC: Debility HPI: This is a 78yoWM clinic patient of Dr Ramsey who has a h/o melanoma who was admitted to IRF due to debility and living along in need of strengthening. I reviewed the meds and hx. Patient reports he is having BM+ and denies any pain. Subjective/Events-last exam Pt reports doing well. No complaints at this time. Objective Exam Vital Signs Vital Signs Date Time Temp Pulse Resp B/P (MAP) Pulse Ox O2 Delivery O2 Flow Rate FiO2 06/08/18 09:00 Room Air 06/08/18 06:00 99.1 73 18 153/72 (99) 92 Capillary Refill : General Appearance: No Apparent Distress, WD/WN Respiratory: Lungs Clear, No Respiratory Distress Cardiovascular: Regular Rate, Rhythm, No Murmur Neurologic/Psychiatric: Alert, Oriented x3 Results/Procedures Lab Patient resulted labs reviewed. Assessment/Plan Assessment and Plan Assess & Plan/Chief Complaint General Debility Diagnosis/Problems Diagnosis/Problems (1) Debility Status: Acute Assessment & Plan: PT/OT Management per primary (2) Hypertension Status: Chronic Assessment & Plan: BP well controlled History of labile BP so will trend Qualifiers: Hypertension type: essential hypertension Qualified Codes: I10 - Essential (primary) hypertension (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 Assessment & Plan: history of melanoma Follows with Dr King Clinical Quality Measures DVT/VTE Risk/Contraindication: Risk Factor Score Per Nursin RFS Level Per Nursing on Admit: 4+=Very High MATEO ANDERSON MD Jun 08, 2018 15:30
[2018-06-08 15:39] VITALS: BP 105/65
[2018-06-09 05:27] VITALS: BP 156/73
[2018-06-09] MEDS: KCL 10 MEQ TAB (MICRO K) PO SCH (06:25)
[2018-06-09] MEDS: LEVOTHYROXINE 88 MCG (LEVOTHORID) TAB PO SCH (06:25)
[2018-06-09] MEDS: OMEGA 3 (FISH OIL) 1000 MG CAP PO SCH ×2 (06:25→16:24)
--- NOTE | 2018-06-09 07:59 | Occupational Ther Daily Note ---
OT Current Status-Daily Note Subjective Pt alert, sitting in recliner. Pt agrees to therapy. No c/o pain at this time. Mental Status/Objective Patient Orientation: Person, Place, Time, Situation Therapy Code Descriptions/Definitions Functional [place] Measure: 0=Not Assessed/NA 4=Minimal Assistance 1=Total Assistance 5=Supervision or Setup 2=Maximal Assistance 6=Modified [place] 3=Moderate Assistance 7=Complete [place] ADL-Treatment Therapy Code Descriptions/Definitions Functional [place] Measure: 0=Not Assessed/NA 4=Minimal Assistance 1=Total Assistance 5=Supervision or Setup 2=Maximal Assistance 6=Modified [place] 3=Moderate Assistance 7=Complete [place] Therapy Quality Codes: 6 Independent with activity with or without an assistive device 5 Patient requires set up or clean up by helper. Patient completes activity by themselves 4 Supervision or touching assist (CGA). [place] provide cues , steadying assist 3 The helper provides less than half the effort to complete the activity 2 The helper provides more than half the effort to complete the activity 1 Dependent. The helper does all the effort to complete an activity 7 Patient refused to complete or attempt activity 9 The patient did not perform the activity before the current illness or injury 88 Not attempted due to Medical conditions or safety concerns Eating (FIM): 7 (Pt able to open containers/packages then use regular utensils to eat.) Eating (QC): 6 Bathing (FIM): 5 (SBA for drying. Mod I for bathing using grabbars, long handle sponge, hand held shower and shower bench pt able to complete bathing.) Bathing Location: L Arm, R Arm, L Upper Leg, R Upper Leg, L Lower Leg ( including foot), R Lower Leg (including foot), Chest, Abdomen, Buttocks, Perineal Area Shower/Bathe Self (QC): 4 Upper Body (FIM): 5 (Set up. Pt completes dressing by self.) Upper Body Dressing (QC): 5 Lower Body Dressing (FIM): 5 (Set up, SBA to hike pants over hips. Pt completes dressing by self using AE.) Lower Body Dressing (QC): 4 On/Off Footwear (QC): 6 Toileting (FIM): 6 (Using grabbars and elevated seat, pt is able to complete.) Toileting Hygiene (QC): 6 Toilet/Commode Transfer (FIM): 6 (Using grabbars and elevated seat, pt is able to complete.) Toilet Transfer (QC): 6 Shower Transfer(FIM): 6 (Using grabbars, shower bench and FWW pt able to complete. Safety concerns.) After therapy, pt sitting in recliner with call light/phone in reach. All needs met in room. OT Short Term Goals Short Term Goals Time Frame: Jun 08, 2018 Toilet/Commode Transfer(FIM): 5 (SBA) Additional Short Term Goals: 1-Demonstrate ADL Tasks, 2-Verbalize Understanding , 3-ImproveStrength/Abdulkadir 1=Demonstrate adherence to instructed precautions during ADL tasks. 2=Patient will verbalize/demonstrate understanding of assistive devices/ modifications for ADL. 3=Patient will improve strength/tolerance for activity to enable patient to perform ADL's. OT Instructor Kindergarten Goals Senior Care Goals Time Frame: Jun 22, 2018 Eating (FIM): 7 Eating (QC): 6 Groomin Oral Hygiene (QC): 6 Bathing(FIM): 6 Shower/Bathe Self (QC): 6 Upper Body Dressing(FIM): 6 Upper Body Dressing (QC): 6 Lower Body Dressing(FIM): 6 Lower Body Dressing (QC): 6 On/Off Footwear (QC): 6 Toileting(FIM): 6 Toileting Hygiene (QC): 6 Toilet/Commode Transfer(FIM): 6 Toilet/Commode Transfer (QC): 6 Shower Transfer(FIM): 6 Comprehension(FIM): 6 Expression (FIM): 7 Social Interaction(FIM): 7 Problem Solving(FIM): 7 Memory(FIM): 7 Additional Goals: 1-Demonstrate ADL Tasks, 2-Verbalize Understanding, 3- ImproveStrength/Abdulkadir 1=Demonstrate adherence to instructed precautions during ADL tasks. 2=Patient will verbalize/demonstrate understanding of assistive devices/ modifications for ADL. 3=Patient will improve strength/tolerance for activity to enable patient to perform ADL's. OT Education/Plan Problem List/Assessment Pt would benefit from skilled OT to increase his independence in basic self care to allow him to safely return home Discharge Recommendations Plan/Recommendations: Continue POC Treatment Plan/Plan of Care Patient would benefit from OT for education, treatment and training to promote independence in ADL's, mobility, safety and/or upper extremity function for ADL' s. Plan of Care: ADL Retraining, Functional Mobility, Group Exercise/Act as Ind ( education, exercise, socialization, functional activities, activiity toleance), UE Funct Exercise/Act, UE Neuromus Re-Ed/Coord, OTHER (energy conservation education/practce) Treatment Duration: Jun 22, 2018 Frequency: At least 5 of 7 days/Wk (IRF) Estimated Hrs Per Day: 1.5 hours per day Agreement: Yes Rehab Potential: Good Time/GCodes Start Time: 07:00 Stop Time: 08:00 Total Time Billed (hr/min): 60 Billed Treatment Time 1 visit-ADL 4 (60 min) KRUPA WEI Jun 09, 2018 07:59
[2018-06-09] MEDS: CELECOXIB 100 MG (CeleBREX) CAP PO SCH (08:57)
[2018-06-09] MEDS: NEBIVOLOL 5 MG TAB (BYSTOLIC) PO SCH (08:57)
[2018-06-09] MEDS: lisINopril 10 MG (PRINIVIL) TABLET PO SCH (08:57)
[2018-06-09] MEDS: ASPIRIN E.C. 81 MG (ECOTRIN) TAB PO SCH (08:57)
[2018-06-09] MEDS: FUROSEMIDE 40 MG (LASIX) TAB PO SCH (08:57)
[2018-06-09] MEDS: DOCUSATE SODIUM 100 MG (COLACE) CAP PO SCH (08:57)
--- NOTE | 2018-06-09 10:02 | Cardiology Progress Note ---
Subjective Date Seen by Provider: Jun 09, 2018 Time Seen by Provider: 10:00 Subjective/Events-last exam Patient is in bed feeling better, no new complaint Review of Systems General: No Chills, No Night Sweats, No Fatigue, No Malaise, No Appetite, No Other HEENT: No Head Aches, No Visual Changes, No Eye Pain, No Ear Pain, No Dysphasia , No Sinus Congestion, No Post Nasal Drip, No Sore Throat, No Other Pulmonary: No Dyspnea, No Cough, No Pleuritic Chest Pain, No Other Cardiovascular: No: Chest Pain, Palpitations, Orthopnea, Paroxysmal Noc. Dyspnea, Edema, Lt Headedness, Other Objective-Cardiology Exam Last Set of Vital Signs Vital Signs 06/09/18 06/09/18 05:27 09:00 Temp 97.8 Pulse 70 Resp 18 B/P (MAP) 156/73 (100) Pulse Ox 94 O2 Delivery Room Air Capillary Refill : I&O Intake and Output 06/09/18 00:00 Intake Total 1160 ml Output Total 100 ml Balance 1060 ml Intake Oral 1160 ml Output Urine Total 100 ml # Voids 3 General: Alert, Oriented X3, Cooperative, No Acute Distress HEENT: Atraumatic, PERRLA, EOMI, Mucous Memb Moist/[place] Neck: Supple, No JVD Lungs: Clear to Auscultation Heart: Regular Rate, Normal S1, Normal S2 Abdomen: Normal Bowel Sounds, Soft, No Tenderness, Other (Plus edema) Extremities: No Clubbing, No Cyanosis Skin: No Rashes, No Breakdown Neuro: Normal Speech, Other (Sensation diminished from knees down to light touch Strength 2/5 at hips left knee flex and ext 3/5 Rt knee flex and ext 2/5) Psych/Mental Status: Mental Status NL A/P-Cardiology Admission Diagnosis Labile HTN generalized weakness CAD Assessment/Plan Generalized weakness and loss of energy. Receiving physical therapy and improving Labile hypertension- patient has history of resistant HTN, labile blood pressure , continue to monitor. Patient is wearing CHELSEA hose. Bradycardia secondary to medication, has history of underlying sinus node dysfunction that was worsening with medication, his baseline heart rate is between 40 and 50. Patient has been asymptomatic with this heart rate as an outpatient. Consider decreasing beta redd if needed. 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 Medical therapy was recommended. Continue to monitor Renal ultrasound was done in November 2016 showing normal bilateral kidneys with no significance disease in the renal arteries, continue to monitor Melanoma stage III D, status post excision from the left arm and left axillary dissection, received immunotherapy, no radiation, followed by Dr. King Lipid profile was done in November 2017 showing total cholesterol 177, HDL 48, LDL 115, triglyceride 80, continue to monitor. Osteoarthritis, maintained on Celebrex which could be affecting negatively the blood pressure Extensive surgical history, in November 2015 underwent repair of bowel due to complication of hernia surgery and removal of infected mesh surgery. History of laminectomy, neck surgery for spinal stenosis, radical prostatectomy , carpal tunnel surgery. Mild bilateral carotid stenosis, ultrasound was done in December 2017, continue to monitor. Clinical Quality Measures DVT/VTE Risk/Contraindication: Risk Factor Score Per Nursin RFS Level Per Nursing on Admit: 4+=Very High TIERRA MARIN MD Jun 09, 2018 10:02
--- NOTE | 2018-06-09 11:58 | Physical Therapy Daily Note ---
PT Daily Note-Current Subjective Pt. up in recliner, states he may need to try to urinate before going to gym. Pain Numeric Pain Scale: 0-No Pain Transfers Therapy Code Descriptions/Definitions Functional Boyd Measure: 0=Not Assessed/NA 4=Minimal Assistance 1=Total Assistance 5=Supervision or Setup 2=Maximal Assistance 6=Modified [place] 3=Moderate Assistance 7=Complete [place] Therapy Quality Codes: 6 Independent with activity with or without an assistive device 5 Patient requires set up or clean up by helper. Patient completes activity by themselves 4 Supervision or touching assist (CGA). [place] provide cues , steadying assist 3 The helper provides less than half the effort to complete the activity 2 The helper provides more than half the effort to complete the activity 1 Dependent. The helper does all the effort to complete an activity 7 Patient refused to complete or attempt activity 9 The patient did not perform the activity before the current illness or injury 88 Not attempted due to Medical conditions or safety concerns Transfers (B, C, W/C) (FIM): 4 Scootin Rollin Supine to/from Sit: 4 Sit to/from Stand: 4 on off Nustep requires mod assist LEs, pt. with poor strength and control LEs Weight Bearing Right Lower Extremity: Right Full Weight Bearing Left Lower Extremity: Left Full Weight Bearing Gait Training Does the Patient Walk?: Yes Gait (FIM): 4 Distance (FIM): 3=150 ft (160x2,30) Gait Level of Assist: 4 Gait Persons Needed: 1 Gait Assistive Device: FWW flexed at trunk, poor LE control Stair Training declines trial of stairs Exercises Seated Therapy Exercises: Ankle pumps, Sit to stand, Long arc quads, Hip abd/ add Seated Reps: 12 NuStep Minutes: 12 NuStep Workload: 4 Treatments toileted 1st attemtping to stand to urinate, then realizing after attempting it that he needs assist and is safer to sit Assessment Current Status: Fair Progress dependent for all mobility PT Short Term Goals Short Term Goals Time Frame: Jun 08, 2018 Gait (FIM): 4 Gait Distance Comment: 150' Gait Level of Assist: 4 Gait Assistive Device: FWW PT Senior Living Goals Processing Associate Goals PT Processing Associate Goals Time Frame: Jun 22, 2018 Transfers (B,C,W/C) (FIM): 5 Sit to Lying (QC): 4 Lying-Sitting on Side/Bed(QC): 4 Sit to Stand (QC): 4 Rollin Roll Left to Right (QC): 4 Chair/Kgj-vv-Zbcao Xfer(QC): 4 Car Transfer (QC): 4 Gait (FIM): 5 Distance: 200' Walk 10 feet (QC): 4 Walk 10ft-Uneven Surface(QC): 4 Walk 50ft with 2 Turns (QC): 4 Walk 150 ft (QC): 4 Gait Level of Assist: 5 Gait Assistive Device: FWW Stairs (FIM): 1 # of Steps: 1 1 Step (curb) (QC): 4 Stairs Level Of Assist: 4 PT Plan Treatment/Plan Treatment Plan: Continue Plan of Care Treatment Plan: Bed Mobility, Education, Functional Activity Abdulkadir, Functional Strength, Group Therapy, Gait, Safety, Therapeutic Exercise, Transfers Treatment Duration: Jun 22, 2018 Frequency: At least 5 of 7 days/Wk (IRF) Estimated Hrs Per Day: 1.5 hours per day Patient and/or Family Agrees t: Yes Safety Risks/Education Patient Education: Gait Training, Transfer Techniques, Correct Positioning, Disease Process, Safety Issues Teaching Recipient: Patient Teaching Methods: Demonstration, Discussion Response to Teaching: Verbalize Understanding, Return Demonstration, Reinforcement Needed Time/GCodes Time In: 1100 Time Out: 1200 Total Billed Treatment Time: 60 Total Billed Treatment 1,GT15m,FA10m,EX35m G Codes Necessary: NEIL Do BRICK SIDING APPLICATOR Jun 09, 2018 11:58
[2018-06-09] MEDS: ENOXAPARIN 40 MG/0.4 ML (LOVENOX) SYR SC SCH (13:09)
--- NOTE | 2018-06-09 14:42 | Therapy Group Daily Note ---
Therapy Daily Group Note Patient Education Topic Other List Below (rehab orientation and benefits of exercise) Exercises LE Seated Exercise, UE Exercise Other/Notes Pt. participated in group PT OT session this date. Pt. required min assist ambulating to and from with FWW. Pt. slow and flexed at trunk with head down. Pts. introduced selves and socialized utilizing a pair of jumbo foam dice . Pts. laughed and shared fun life events. Pts. lead the exercise group by reading from written illustrated cards with others following the example. Pt. to room after Rx, up in recliner with call chiang at hand. Start Time: 13:00 Stop Time: 14:20 Total Billed Treatment Time: 80 Total Billed Treatment 1,GRP NEIL SWIFT PHOTOGRAMMETRIC COMPILATION SPECIALIST Jun 09, 2018 14:42
[2018-06-09 18:00] VITALS: BP 134/78
[2018-06-10 05:46] VITALS: BP 156/65
[2018-06-10] MEDS: LEVOTHYROXINE 88 MCG (LEVOTHORID) TAB PO SCH (05:49)
[2018-06-10] MEDS: KCL 10 MEQ TAB (MICRO K) PO SCH (05:49)
[2018-06-10] MEDS: OMEGA 3 (FISH OIL) 1000 MG CAP PO SCH ×2 (05:49→17:00)
--- NOTE | 2018-06-10 07:54 | PM & R (SOAP) Progress Note ---
Subjective This was a face to face visit with the patient. Date Seen by Provider: Jun 10, 2018 Time Seen by Provider: 07:45 Subjective/Events-last exam Patient was seen in his room this AM Patient Min assist for transfers.No further hypotensive episodes with adjustment in meds by cardiology Objective Physician Exam Last Set of Vital Signs Vital Signs Date Time Temp Pulse Resp B/P (MAP) Pulse Ox O2 Delivery O2 Flow Rate FiO2 06/10/18 05:46 99.0 77 20 156/65 (95) 93 Room Air Capillary Refill : I&O Intake and Output 06/10/18 00:00 Intake Total 1540 ml Balance 1540 ml Intake Oral 1540 ml # Voids 6 # Bowel Movements 2 General: Alert, Oriented X3, Cooperative, No Acute Distress HEENT: Atraumatic, PERRLA, EOMI, Mucous Memb Moist/[place] Neck: Supple, No JVD Lungs: Clear to Auscultation Heart: Regular Rate, Normal S1, Normal S2 Abdomen: Normal Bowel Sounds, Soft, No Tenderness, Other (Plus edema) Extremities: No Clubbing, No Cyanosis Skin: No Rashes, No Breakdown Neuro: Normal Speech, Other (Sensation diminished from knees down to light touch Strength 2/5 at hips left knee flex and ext 3/5 Rt knee flex and ext 2/5) Psych/Mental Status: Mental Status NL Assessment/Plan Assessment and Plan General debil HTN with episode of hypotension improved with adjustment on meds Peripheral neuropathy Peripheral edema Lumbar spondylosis SSS Plan continue Pt/OT Reconference next week F/U with Cardiology prn Co-Morbidities that are continuing to impact the rehab process: (include details ) DANNA LAWS MD Jun 10, 2018 07:54
[2018-06-10] MEDS: ASPIRIN E.C. 81 MG (ECOTRIN) TAB PO SCH (08:15)
[2018-06-10] MEDS: lisINopril 10 MG (PRINIVIL) TABLET PO SCH (08:15)
[2018-06-10] MEDS: NEBIVOLOL 5 MG TAB (BYSTOLIC) PO SCH (08:15)
[2018-06-10] MEDS: FUROSEMIDE 40 MG (LASIX) TAB PO SCH (08:15)
[2018-06-10] MEDS: CELECOXIB 100 MG (CeleBREX) CAP PO SCH (08:15)
[2018-06-10] MEDS: DOCUSATE SODIUM 100 MG (COLACE) CAP PO SCH (08:15)
--- NOTE | 2018-06-10 10:43 | Physical Therapy Daily Note ---
PT Daily Note-Current Subjective Pt. states he had a f=good breakfast and is ready to move around. Pain Location: No Pain Reported Mental Status Patient Orientation: Person, Place Transfers Therapy Code Descriptions/Definitions Functional [place] Measure: 0=Not Assessed/NA 4=Minimal Assistance 1=Total Assistance 5=Supervision or Setup 2=Maximal Assistance 6=Modified [place] 3=Moderate Assistance 7=Complete [place] Therapy Quality Codes: 6 Independent with activity with or without an assistive device 5 Patient requires set up or clean up by helper. Patient completes activity by themselves 4 Supervision or touching assist (CGA). [place] provide cues , steadying assist 3 The helper provides less than half the effort to complete the activity 2 The helper provides more than half the effort to complete the activity 1 Dependent. The helper does all the effort to complete an activity 7 Patient refused to complete or attempt activity 9 The patient did not perform the activity before the current illness or injury 88 Not attempted due to Medical conditions or safety concerns Transfers (B, C, W/C) (FIM): 4 Scootin Sit to/from Stand: 4 Weight Bearing Right Lower Extremity: Right Full Weight Bearing Left Lower Extremity: Left Full Weight Bearing Gait Training Does the Patient Walk?: Yes Gait (FIM): 4 Distance (FIM): 3=150 ft (175x2) Gait Level of Assist: 4 Gait Persons Needed: 1 Gait Assistive Device: FWW CGA , slow, flexed trunk, poor proprioception, at risk for falls Exercises NuStep Minutes: 10 NuStep Workload: 4 Neuromuscular Nustep for LE UE coordination and LE strength Assessment Current Status: Good Progress PT Short Term Goals Short Term Goals Time Frame: Jun 08, 2018 Gait (FIM): 4 Gait Distance Comment: 150' Gait Level of Assist: 4 Gait Assistive Device: FWW PT Multimedia Educational Specialist Goals Multimedia Educational Specialist Goals PT Multimedia Educational Specialist Goals Time Frame: Jun 22, 2018 Transfers (B,C,W/C) (FIM): 5 Sit to Lying (QC): 4 Lying-Sitting on Side/Bed(QC): 4 Sit to Stand (QC): 4 Rollin Roll Left to Right (QC): 4 Chair/Amt-ga-Jextn Xfer(QC): 4 Car Transfer (QC): 4 Gait (FIM): 5 Distance: 200' Walk 10 feet (QC): 4 Walk 10ft-Uneven Surface(QC): 4 Walk 50ft with 2 Turns (QC): 4 Walk 150 ft (QC): 4 Gait Level of Assist: 5 Gait Assistive Device: FWW Stairs (FIM): 1 # of Steps: 1 1 Step (curb) (QC): 4 Stairs Level Of Assist: 4 PT Plan Treatment/Plan Treatment Plan: Continue Plan of Care Treatment Plan: Bed Mobility, Education, Functional Activity Abdulkadir, Functional Strength, Group Therapy, Gait, Safety, Therapeutic Exercise, Transfers Treatment Duration: Jun 22, 2018 Frequency: At least 5 of 7 days/Wk (IRF) Estimated Hrs Per Day: 1.5 hours per day Patient and/or Family Agrees t: Yes Safety Risks/Education Patient Education: Gait Training, Transfer Techniques, Correct Positioning, Disease Process, Safety Issues Teaching Recipient: Patient Teaching Methods: Demonstration, Discussion Response to Teaching: Verbalize Understanding, Return Demonstration, Reinforcement Needed Time/GCodes Time In: 925 Time Out: 950 Total Billed Treatment Time: 25 Total Billed Treatment 1,GT 15, EX10 G Codes Necessary: NEIL Do UTILITY LOCATOR Jun 10, 2018 10:43
[2018-06-10] MEDS: ENOXAPARIN 40 MG/0.4 ML (LOVENOX) SYR SC SCH (11:19)
[2018-06-10 16:58] VITALS: BP 135/65
[2018-06-11 05:19] VITALS: BP 167/76
[2018-06-11] MEDS: LEVOTHYROXINE 88 MCG (LEVOTHORID) TAB PO SCH (05:23)
[2018-06-11] MEDS: KCL 10 MEQ TAB (MICRO K) PO SCH (05:23)
[2018-06-11] MEDS: OMEGA 3 (FISH OIL) 1000 MG CAP PO SCH ×2 (05:24→16:35)
[2018-06-11 09:04] VITALS: BP 134/65
[2018-06-11] MEDS: DOCUSATE SODIUM 100 MG (COLACE) CAP PO SCH (09:05)
[2018-06-11] MEDS: ASPIRIN E.C. 81 MG (ECOTRIN) TAB PO SCH (09:05)
[2018-06-11] MEDS: NEBIVOLOL 5 MG TAB (BYSTOLIC) PO SCH (09:05)
[2018-06-11] MEDS: CELECOXIB 100 MG (CeleBREX) CAP PO SCH (09:05)
[2018-06-11] MEDS: FUROSEMIDE 40 MG (LASIX) TAB PO SCH (09:05)
[2018-06-11] MEDS: lisINopril 10 MG (PRINIVIL) TABLET PO SCH (09:05)
[2018-06-11] MEDS: ENOXAPARIN 40 MG/0.4 ML (LOVENOX) SYR SC SCH (11:50)
[2018-06-11 15:40] VITALS: BP 124/65
[2018-06-12 05:07] VITALS: BP 160/76
[2018-06-12] MEDS: LEVOTHYROXINE 88 MCG (LEVOTHORID) TAB PO SCH (06:03)
[2018-06-12] MEDS: KCL 10 MEQ TAB (MICRO K) PO SCH (06:03)
[2018-06-12] MEDS: OMEGA 3 (FISH OIL) 1000 MG CAP PO SCH ×2 (06:03→16:07)
--- NOTE | 2018-06-12 07:46 | Occupational Ther Daily Note ---
OT Current Status-Daily Note Subjective Pt alert, sitting in recliner. Pt stated that he was in a hotel, when asked the name he didn't know and said that it was behind everything. When asked if he knew the name he couldn't say then when AGUIAR stated that he was in the hospital he said "yeah that where". No c/o pain only itching from rash on back. Nrsg stated ivory linens have been provided. Mental Status/Objective Patient Orientation: Person, Time, Situation Therapy Code Descriptions/Definitions Functional [place] Measure: 0=Not Assessed/NA 4=Minimal Assistance 1=Total Assistance 5=Supervision or Setup 2=Maximal Assistance 6=Modified [place] 3=Moderate Assistance 7=Complete [place] ADL-Treatment Therapy Code Descriptions/Definitions Functional [place] Measure: 0=Not Assessed/NA 4=Minimal Assistance 1=Total Assistance 5=Supervision or Setup 2=Maximal Assistance 6=Modified [place] 3=Moderate Assistance 7=Complete [place] Therapy Quality Codes: 6 Independent with activity with or without an assistive device 5 Patient requires set up or clean up by helper. Patient completes activity by themselves 4 Supervision or touching assist (CGA). [place] provide cues , steadying assist 3 The helper provides less than half the effort to complete the activity 2 The helper provides more than half the effort to complete the activity 1 Dependent. The helper does all the effort to complete an activity 7 Patient refused to complete or attempt activity 9 The patient did not perform the activity before the current illness or injury 88 Not attempted due to Medical conditions or safety concerns Eating (FIM): 7 (Pt able to open containers/packages then use regular utensils to eat.) Eating (QC): 6 Grooming (FIM): 6 (Sitting at sink, pt able to complete.) Oral Hygiene (QC): 6 Bathing (FIM): 5 (Using grabbars, hand held shower, long handle sponge and shower bench. SBA in standing to dry buttocks.) Bathing Location: L Arm, R Arm, L Upper Leg, R Upper Leg, L Lower Leg ( including foot), R Lower Leg (including foot), Chest, Abdomen, Buttocks, Perineal Area Shower/Bathe Self (QC): 4 Upper Body (FIM): 5 (Pt asked for AGUIAR to get clothing. Pt able to don/doff clothing by self.) Upper Body Dressing (QC): 5 Lower Body Dressing (FIM): 4 (Pt asked AGUIAR to gather clothing. Then asked for AGUIAR to put on pants and socks. AGUIAR encouraged pt to don/doff by himself. Using AE pt able to don/doff pants and doff socks. Assist to don CHELSEA hose. Pt attempted to don shoes with AE, assist needed to don and tie shoes. Pt appears to be getting weaker and more assist needed for dressing lower body.) Lower Body Dressing (QC): 3 On/Off Footwear (QC): 3 Toileting (FIM): 6 (Using elevated seat, grabbars and FWW pt able to complete.) Toileting Hygiene (QC): 6 Toilet/Commode Transfer (FIM): 6 (Using elevated seat, grabbars and FWW pt able to complete.) Toilet Transfer (QC): 6 Shower Transfer(FIM): 4 (Using grabbars, shower bench and FWW pt able to transfer into shower by self. Min A to stand from shower bench to transfer out of shower.) Pt takes increased time to complete tasks due to decreased activity tolerance and decreased mobility. After therapy, pt sitting in recliner with call light/ phone in reach. All needs met in room. OT Short Term Goals Short Term Goals Time Frame: Jun 08, 2018 Toilet/Commode Transfer(FIM): 5 (SBA) Additional Short Term Goals: 1-Demonstrate ADL Tasks, 2-Verbalize Understanding , 3-ImproveStrength/Abdulkadir 1=Demonstrate adherence to instructed precautions during ADL tasks. 2=Patient will verbalize/demonstrate understanding of assistive devices/ modifications for ADL. 3=Patient will improve strength/tolerance for activity to enable patient to perform ADL's. OT Drawing In Machine Tender Goals Usp Goals Time Frame: Jun 22, 2018 Eating (FIM): 7 Eating (QC): 6 Groomin Oral Hygiene (QC): 6 Bathing(FIM): 6 Shower/Bathe Self (QC): 6 Upper Body Dressing(FIM): 6 Upper Body Dressing (QC): 6 Lower Body Dressing(FIM): 6 Lower Body Dressing (QC): 6 On/Off Footwear (QC): 6 Toileting(FIM): 6 Toileting Hygiene (QC): 6 Toilet/Commode Transfer(FIM): 6 Toilet/Commode Transfer (QC): 6 Shower Transfer(FIM): 6 Comprehension(FIM): 6 Expression (FIM): 7 Social Interaction(FIM): 7 Problem Solving(FIM): 7 Memory(FIM): 7 Additional Goals: 1-Demonstrate ADL Tasks, 2-Verbalize Understanding, 3- ImproveStrength/Abdulkadir 1=Demonstrate adherence to instructed precautions during ADL tasks. 2=Patient will verbalize/demonstrate understanding of assistive devices/ modifications for ADL. 3=Patient will improve strength/tolerance for activity to enable patient to perform ADL's. OT Education/Plan Problem List/Assessment Pt would benefit from skilled OT to increase his independence in basic self care to allow him to safely return home Discharge Recommendations Plan/Recommendations: Continue POC Treatment Plan/Plan of Care Patient would benefit from OT for education, treatment and training to promote independence in ADL's, mobility, safety and/or upper extremity function for ADL' s. Plan of Care: ADL Retraining, Functional Mobility, Group Exercise/Act as Ind ( education, exercise, socialization, functional activities, activiity toleance), UE Funct Exercise/Act, UE Neuromus Re-Ed/Coord, OTHER (energy conservation education/practce) Treatment Duration: Jun 22, 2018 Frequency: At least 5 of 7 days/Wk (IRF) Estimated Hrs Per Day: 1.5 hours per day Agreement: Yes Rehab Potential: Good Time/GCodes Start Time: 07:00 Stop Time: 08:30 Total Time Billed (hr/min): 90 Billed Treatment Time 1 visit-ADL 6 (90 min) KRUPA WEI Jun 12, 2018 07:45
[2018-06-12 08:14] VITALS: BP 132/69
[2018-06-12] MEDS: ASPIRIN E.C. 81 MG (ECOTRIN) TAB PO SCH (08:14)
[2018-06-12] MEDS: FUROSEMIDE 40 MG (LASIX) TAB PO SCH (08:14)
[2018-06-12] MEDS: NEBIVOLOL 5 MG TAB (BYSTOLIC) PO SCH (08:14)
[2018-06-12] MEDS: CELECOXIB 100 MG (CeleBREX) CAP PO SCH (08:14)
[2018-06-12] MEDS: lisINopril 10 MG (PRINIVIL) TABLET PO SCH (08:14)
[2018-06-12] MEDS: DOCUSATE SODIUM 100 MG (COLACE) CAP PO SCH (08:14)
--- NOTE | 2018-06-12 08:30 | Cardiology Progress Note ---
Subjective Date Seen by Provider: Jun 12, 2018 Time Seen by Provider: 08:20 Subjective/Events-last exam Patient is in room, no new complaint. Denies any further dizziness or lightheadedness. Review of Systems General: No Night Sweats, No Fatigue, No Malaise HEENT: No Visual Changes, No Dysphasia Pulmonary: No Dyspnea, No Cough Cardiovascular: No: Chest Pain, Palpitations, Edema Gastrointestinal: No: Nausea, Vomiting, Diarrhea, Constipation Genitourinary: No Dysuria, No Frequency Musculoskeletal: No: neck pain, back pain Neurological: Weakness; No: Numbness, Change in speech, Confusion Objective-Cardiology Exam Last Set of Vital Signs Vital Signs 06/12/18 06/12/18 05:07 08:14 Temp 99.4 Pulse 67 Resp 16 B/P (MAP) 132/69 (90) Pulse Ox 97 O2 Delivery Room Air Capillary Refill : I&O Intake and Output 06/12/18 00:00 Intake Total 1000 ml Balance 1000 ml Intake Oral 1000 ml # Voids 7 # Bowel Movements 1 General: Alert, Oriented X3, Cooperative, No Acute Distress HEENT: Atraumatic, PERRLA, EOMI, Mucous Memb Moist/[place] Neck: Supple, No JVD Lungs: Clear to Auscultation Heart: Regular Rate, Normal S1, Normal S2 Abdomen: Normal Bowel Sounds, Soft, No Tenderness Extremities: No Clubbing, No Cyanosis Skin: No Rashes, No Breakdown Neuro: Normal Speech, Other (Sensation diminished from knees down to light touch Strength 2/5 at hips left knee flex and ext 3/5 Rt knee flex and ext 2/5) Psych/Mental Status: Mental Status NL A/P-Cardiology Admission Diagnosis Labile HTN generalized weakness CAD Assessment/Plan Generalized weakness and loss of energy. Receiving physical therapy Labile hypertension- patient has history of resistant HTN, labile blood pressure , continue to monitor. Patient is wearing CHELSEA hose. Bradycardia secondary to medication, has history of underlying sinus node dysfunction that was worsening with medication, his baseline heart rate is between 40 and 50. Patient has been asymptomatic with this heart rate as an outpatient. Consider decreasing beta redd if needed. 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 Medical therapy was recommended. Continue to monitor Renal ultrasound was done in November 2016 showing normal bilateral kidneys with no significance disease in the renal arteries, continue to monitor Melanoma stage III D, status post excision from the left arm and left axillary dissection, received immunotherapy, no radiation, followed by Dr. King Lipid profile was done in November 2017 showing total cholesterol 177, HDL 48, LDL 115, triglyceride 80, continue to monitor. Osteoarthritis, maintained on Celebrex which could be affecting negatively the blood pressure Extensive surgical history, in November 2015 underwent repair of bowel due to complication of hernia surgery and removal of infected mesh surgery. History of laminectomy, neck surgery for spinal stenosis, radical prostatectomy , carpal tunnel surgery. Mild bilateral carotid stenosis, ultrasound was done in December 2017, continue to monitor. Clinical Quality Measures DVT/VTE Risk/Contraindication: Risk Factor Score Per Nursin RFS Level Per Nursing on Admit: 4+=Very High SKYLA HOLLIS Jun 12, 2018 08:30
--- NOTE | 2018-06-12 10:26 | Cardiology Progress Note ---
Subjective Date Seen by Provider: Jun 12, 2018 Time Seen by Provider: 10:25 Subjective/Events-last exam Patient is in bed, feeling better, no new complaint, still having generalized fatigue Review of Systems General: No Chills, No Night Sweats; Fatigue; No Malaise, No Appetite, No Other HEENT: No Head Aches, No Visual Changes, No Eye Pain, No Ear Pain, No Dysphasia , No Sinus Congestion, No Post Nasal Drip, No Sore Throat, No Other Pulmonary: No Dyspnea, No Cough, No Pleuritic Chest Pain, No Other Cardiovascular: Edema; No: Chest Pain, Palpitations, Orthopnea, Paroxysmal Noc. Dyspnea, Lt Headedness, Other Objective-Cardiology Exam Last Set of Vital Signs Vital Signs 06/12/18 06/12/18 06/12/18 05:07 08:14 09:37 Temp 99.4 Pulse 67 Resp 16 B/P (MAP) 132/69 (90) Pulse Ox 97 O2 Delivery Room Air Capillary Refill : I&O Intake and Output 06/12/18 00:00 Intake Total 1000 ml Balance 1000 ml Intake Oral 1000 ml # Voids 7 # Bowel Movements 1 General: Alert, Oriented X3, Cooperative, No Acute Distress HEENT: Atraumatic, PERRLA, EOMI, Mucous Memb Moist/[place] Neck: Supple, No JVD Lungs: Clear to Auscultation Heart: Regular Rate, Normal S1, Normal S2 Abdomen: Normal Bowel Sounds, Soft, No Tenderness Extremities: No Clubbing, No Cyanosis Skin: No Rashes, No Breakdown Neuro: Normal Speech, Other (Sensation diminished from knees down to light touch Strength 2/5 at hips left knee flex and ext 3/5 Rt knee flex and ext 2/5) Psych/Mental Status: Mental Status NL A/P-Cardiology Admission Diagnosis Labile HTN generalized weakness CAD Assessment/Plan Generalized weakness and loss of energy. Receiving physical therapy Labile hypertension- patient has history of resistant HTN, labile blood pressure , continue to monitor. Patient is wearing CHELSEA hose. Bradycardia secondary to medication, has history of underlying sinus node dysfunction that was worsening with medication, his baseline heart rate is between 40 and 50. Patient has been asymptomatic with this heart rate as an outpatient. Consider decreasing beta redd if needed. 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 Medical therapy was recommended. Continue to monitor Renal ultrasound was done in November 2016 showing normal bilateral kidneys with no significance disease in the renal arteries, continue to monitor Melanoma stage III D, status post excision from the left arm and left axillary dissection, received immunotherapy, no radiation, followed by Dr. King Lipid profile was done in November 2017 showing total cholesterol 177, HDL 48, LDL 115, triglyceride 80, continue to monitor. Osteoarthritis, maintained on Celebrex which could be affecting negatively the blood pressure Extensive surgical history, in November 2015 underwent repair of bowel due to complication of hernia surgery and removal of infected mesh surgery. History of laminectomy, neck surgery for spinal stenosis, radical prostatectomy , carpal tunnel surgery. Mild bilateral carotid stenosis, ultrasound was done in December 2017, continue to monitor. Clinical Quality Measures DVT/VTE Risk/Contraindication: Risk Factor Score Per Nursin RFS Level Per Nursing on Admit: 4+=Very High TIERRA MARIN MD Jun 12, 2018 10:26
[2018-06-12] MEDS: ENOXAPARIN 40 MG/0.4 ML (LOVENOX) SYR SC SCH (11:55)
--- NOTE | 2018-06-12 11:59 | Physical Therapy Daily Note ---
PT Daily Note-Current Subjective Pt. states he is not sure what he will do at [place]. And states he is not sure exactly what they will do about his cancer at this point. Also comments on how weak his legs are Pain Numeric Pain Scale: 0-No Pain Mental Status Patient Orientation: Person, Place, Time, Situation Transfers Therapy Code Descriptions/Definitions Functional [place] Measure: 0=Not Assessed/NA 4=Minimal Assistance 1=Total Assistance 5=Supervision or Setup 2=Maximal Assistance 6=Modified [place] 3=Moderate Assistance 7=Complete [place] Therapy Quality Codes: 6 Independent with activity with or without an assistive device 5 Patient requires set up or clean up by helper. Patient completes activity by themselves 4 Supervision or touching assist (CGA). [place] provide cues , steadying assist 3 The helper provides less than half the effort to complete the activity 2 The helper provides more than half the effort to complete the activity 1 Dependent. The helper does all the effort to complete an activity 7 Patient refused to complete or attempt activity 9 The patient did not perform the activity before the current illness or injury 88 Not attempted due to Medical conditions or safety concerns Transfers (B, C, W/C) (FIM): 3 Scootin Rollin Roll Left to Right (QC): 4 Sit to/from Stand: 4 Sit to Stand (QC): 4 Chair/Yzp-qr-Ahfcj Xfer(QC): 4 Bed to/from Chair: 4 Car Transfer (QC): 3 (mod to max assist to get bilat LEs in out car) dependent for safe TRFs Weight Bearing Right Lower Extremity: Right Full Weight Bearing Left Lower Extremity: Left Full Weight Bearing Gait Training Does the Patient Walk?: Yes Gait (FIM): 4 Distance (FIM): 3=150 ft (160x2) Walk 10 feet (QC): 4 Walk 50 ft with 2 Turns(QC): 4 Walk 150 ft (QC): 4 Walking 10ft/uneven surface-QC: 4 Gait Level of Assist: 4 Gait Persons Needed: 1 Gait Assistive Device: FWW trunk flexed over FWW heavy weight bearing on FWW Stair Training Stairs (FIM): 1 #of Steps: 1 1 Step (curb) (QC): 1 Stairs: Pattern: Step to Level of Assist: 2 max assist up down 1 step, very unsafe, hip flexors very weak Balance Special Test Comments unsafe to trial Exercises Seated Therapy Exercises: Sit to stand, Long arc quads Seated Reps: 5 NuStep Minutes: 10 NuStep Workload: 3 Assessment Current Status: Fair Progress dependent for safety, hip flexor weakness and LE control poor PT Short Term Goals Short Term Goals Time Frame: Jun 08, 2018 Gait (FIM): 4 Gait Distance Comment: 150' Gait Level of Assist: 4 Gait Assistive Device: FWW PT Senior Care Goals Supervisor Cd Area Goals PT Senior Care Goals Time Frame: Jun 22, 2018 Transfers (B,C,W/C) (FIM): 5 Sit to Lying (QC): 4 Lying-Sitting on Side/Bed(QC): 4 Sit to Stand (QC): 4 Rollin Roll Left to Right (QC): 4 Chair/Ufw-bb-Zxoaa Xfer(QC): 4 Car Transfer (QC): 4 Gait (FIM): 5 Distance: 200' Walk 10 feet (QC): 4 Walk 10ft-Uneven Surface(QC): 4 Walk 50ft with 2 Turns (QC): 4 Walk 150 ft (QC): 4 Gait Level of Assist: 5 Gait Assistive Device: FWW Stairs (FIM): 1 # of Steps: 1 1 Step (curb) (QC): 4 Stairs Level Of Assist: 4 PT Plan Treatment/Plan Treatment Plan: Continue Plan of Care Treatment Plan: Bed Mobility, Education, Functional Activity Abdulkadir, Functional Strength, Group Therapy, Gait, Safety, Therapeutic Exercise, Transfers Treatment Duration: Jun 22, 2018 Frequency: At least 5 of 7 days/Wk (IRF) Estimated Hrs Per Day: 1.5 hours per day Patient and/or Family Agrees t: Yes Safety Risks/Education Patient Education: Gait Training, Transfer Techniques, Steps, Correct Positioning, Disease Process, Safety Issues Teaching Recipient: Patient Teaching Methods: Demonstration, Discussion Response to Teaching: Verbalize Understanding, Unable to Return Demonstration, Unable to Comprehend, Reinforcement Needed Time/GCodes Time In: 1100 Time Out: 1200 Total Billed Treatment Time: 60 Total Billed Treatment 1,GT20m,FA25m,EX15m G Codes Necessary: NEIL oD CAR BODY INSPECTOR Jun 12, 2018 11:59
--- NOTE | 2018-06-12 13:29 | Physical Therapy Daily Note ---
PT Daily Note-Current Subjective Pt. agrees to Rx. States he needs to go to bathroom for BM 1st Pain Numeric Pain Scale: 0-No Pain Transfers Therapy Code Descriptions/Definitions Functional [place] Measure: 0=Not Assessed/NA 4=Minimal Assistance 1=Total Assistance 5=Supervision or Setup 2=Maximal Assistance 6=Modified [place] 3=Moderate Assistance 7=Complete [place] Therapy Quality Codes: 6 Independent with activity with or without an assistive device 5 Patient requires set up or clean up by helper. Patient completes activity by themselves 4 Supervision or touching assist (CGA). [place] provide cues , steadying assist 3 The helper provides less than half the effort to complete the activity 2 The helper provides more than half the effort to complete the activity 1 Dependent. The helper does all the effort to complete an activity 7 Patient refused to complete or attempt activity 9 The patient did not perform the activity before the current illness or injury 88 Not attempted due to Medical conditions or safety concerns Supine to/from Sit: 4 Sit to/from Stand: 4 Sit to Lying (QC): 3 needs assist for LEs in out bed. sit to stand from lower surfaces require assist Weight Bearing Right Lower Extremity: Right Full Weight Bearing Left Lower Extremity: Left Full Weight Bearing Gait Training Gait Assistive Device: FWW gait 150 x 2 to gym and back to room, CGA, heavy wt bearing on FWW Treatments toileted with min assist as pt. had min LOB attempting to button and buckle pants indep. Assessment Current Status: Fair Progress dependent for safe mobility, LEs very weak PT Short Term Goals Short Term Goals Time Frame: Jun 08, 2018 Gait (FIM): 4 Gait Distance Comment: 150' Gait Level of Assist: 4 Gait Assistive Device: FWW PT Mcc Goals Mcc Goals PT Hospital Receptionist Goals Time Frame: Jun 22, 2018 Transfers (B,C,W/C) (FIM): 5 Sit to Lying (QC): 4 Lying-Sitting on Side/Bed(QC): 4 Sit to Stand (QC): 4 Rollin Roll Left to Right (QC): 4 Chair/Fnt-to-Aczio Xfer(QC): 4 Car Transfer (QC): 4 Gait (FIM): 5 Distance: 200' Walk 10 feet (QC): 4 Walk 10ft-Uneven Surface(QC): 4 Walk 50ft with 2 Turns (QC): 4 Walk 150 ft (QC): 4 Gait Level of Assist: 5 Gait Assistive Device: FWW Stairs (FIM): 1 # of Steps: 1 1 Step (curb) (QC): 4 Stairs Level Of Assist: 4 PT Plan Treatment/Plan Treatment Plan: Continue Plan of Care Treatment Plan: Bed Mobility, Education, Functional Activity Abdulkadir, Functional Strength, Group Therapy, Gait, Safety, Therapeutic Exercise, Transfers Treatment Duration: Jun 22, 2018 Frequency: At least 5 of 7 days/Wk (IRF) Estimated Hrs Per Day: 1.5 hours per day Patient and/or Family Agrees t: Yes Safety Risks/Education Patient Education: Gait Training, Transfer Techniques, Correct Positioning, Disease Process, Safety Issues Teaching Recipient: Patient Teaching Methods: Demonstration, Discussion Response to Teaching: Verbalize Understanding, Return Demonstration (attempts) , Reinforcement Needed Time/GCodes Time In: 1300 Time Out: 1330 Total Billed Treatment Time: 30 Total Billed Treatment 1,FA20m,GT10m G Codes Necessary: NEIL Do BELT MACHINE OPERATOR Jun 12, 2018 13:29
[2018-06-12 17:12] LABS: BASOPHILS # (AUTO) 0.1 10^3/uL (0.0-0.1); BASOPHILS % (AUTO) 1 % (0-10); EOSINOPHILS # (AUTO) 2.5 10^3/uL (0.0-0.3); EOSINOPHILS % (AUTO) 38 % (0-10); HEMATOCRIT 32 % (40-54); HEMOGLOBIN 10.5 G/DL (13.3-17.7); LYMPHOCYTES # (AUTO) 2.1 X 10^3 (1.0-4.0); LYMPHOCYTES % (AUTO) 32 % (12-44); MEAN CORPUSCULAR HEMOGLOBIN 28 PG (25-34); MEAN CORPUSCULAR HGB CONC 32 G/DL (32-36); MEAN CORPUSCULAR VOLUME 86 FL (80-99); MEAN PLATELET VOLUME 9.5 FL (7.4-10.4); MONOCYTES # (AUTO) 0.4 X 10^3 (0.0-1.0); MONOCYTES % (AUTO) 7 % (0-12); NEUTROPHILS # (AUTO) 1.4 X 10^3 (1.8-7.8); NEUTROPHILS % (AUTO) 22 % (42-75); PLATELET COUNT 296 10^3/uL (130-400); RED BLOOD COUNT 3.78 10^6/uL (4.35-5.85); RED CELL DISTRIBUTION WIDTH 14.6 % (10.0-14.5); WHITE BLOOD COUNT 6.5 10^3/uL (4.3-11.0)
[2018-06-12 17:17] VITALS: BP 123/61
[2018-06-12 17:30] LABS: ALANINE AMINOTRANSFERASE 24 U/L (0-55); ALBUMIN 3.6 GM/DL (3.2-4.5); ALKALINE PHOSPHATASE 57 U/L (40-136); BILIRUBIN,TOTAL 0.5 MG/DL (0.1-1.0); BUN/CREATININE RATIO 23; CALCIUM 9.5 MG/DL (8.5-10.1); CARBON DIOXIDE 27 MMOL/L (21-32); CHLORIDE 105 MMOL/L (98-107); CREATININE SERUM 0.78 MG/DL (0.60-1.30); GFR ESTIMATED > 60; GLUCOSE 90 MG/DL (70-105); POTASSIUM 3.7 MMOL/L (3.6-5.0); SODIUM 141 MMOL/L (135-145); TOTAL PROTEIN 6.5 GM/DL (6.4-8.2)
[2018-06-12 17:38] LABS: BAND NEUTROPHILS 0 %; LYMPHOCYTES % (MANUAL) 22 %; NEUTROPHILS % (MANUAL) 26 %
[2018-06-12 17:39] LABS: BASOPHILS % (MANUAL) 1 %; EOSINOPHILS % (MANUAL) 44 %; MONOCYTES % (MANUAL) 7 %; RBC MORPH NORMAL
--- NOTE | 2018-06-12 18:50 | PM & R (SOAP) Progress Note ---
Subjective This was a face to face visit with the patient. Date Seen by Provider: Jun 12, 2018 Time Seen by Provider: 18:20 Subjective/Events-last exam Patient was seen in his room this evening Patient min to mod assist for transfers.SW contacted me earlier today Patient set for discharge to snu tomorrow for ongoing care and therapies Current labs and Notes reviewed.Appreciate Cardiology note Date Identified: Jun 12, 2018 Time Identified: 18:40 Medication Intervention: Transfer meds reviewed Review of Systems Neurological: Weakness Objective Physician Exam Last Set of Vital Signs Vital Signs Date Time Temp Pulse Resp B/P (MAP) Pulse Ox O2 Delivery O2 Flow Rate FiO2 06/12/18 17:17 97.7 57 22 123/61 (81) 98 Room Air Capillary Refill : I&O Intake and Output 06/11/18 23:59 Intake Total 1000 ml Balance 1000 ml Intake Oral 1000 ml # Voids 7 # Bowel Movements 1 General: Alert, Oriented X3, Cooperative, No Acute Distress HEENT: Atraumatic, PERRLA, EOMI, Mucous Memb Moist/[place] Neck: Supple, No JVD Lungs: Clear to Auscultation Heart: Regular Rate, Normal S1, Normal S2 Abdomen: Normal Bowel Sounds, Soft, No Tenderness Extremities: No Clubbing, No Cyanosis Skin: No Rashes, No Breakdown Neuro: Normal Speech, Other (Sensation diminished from knees down to light touch Strength 2/5 at hips left knee flex and ext 3/5 Rt knee flex and ext 2/5) Psych/Mental Status: Mental Status NL Results Lab Data Laboratory Tests 06/12/18 17:00: White Blood Count 6.5, Red Blood Count 3.78L, Hemoglobin 10.5L, Hematocrit 32L, Mean Corpuscular Volume 86, Mean Corpuscular Hemoglobin 28, Mean Corpuscular Hemoglobin Concent 32, Red Cell Distribution Width 14.6H, Platelet Count 296, Mean Platelet Volume 9.5, Neutrophils (%) (Auto) 22L, Lymphocytes (%) (Auto) 32 , Monocytes (%) (Auto) 7, Eosinophils (%) (Auto) 38H, Basophils (%) (Auto) 1, Neutrophils # (Auto) 1.4L, Lymphocytes # (Auto) 2.1, Monocytes # (Auto) 0.4, Eosinophils # (Auto) 2.5H, Basophils # (Auto) 0.1, Neutrophils % (Manual) 26, Lymphocytes % (Manual) 22, Monocytes % (Manual) 7, Eosinophils % (Manual) 44, Basophils % (Manual) 1, Band Neutrophils 0, Blood Morphology Comment NORMAL, Sodium Level 141, Potassium Level 3.7, Chloride Level 105, Carbon Dioxide Level 27, Anion Gap 9, Blood Urea Nitrogen 18, Creatinine 0.78, Estimat Glomerular Filtration Rate > 60, BUN/Creatinine Ratio 23, Glucose Level 90, Calcium Level 9.5, Corrected Calcium 9.8, Total Bilirubin 0.5, Aspartate Amino Transf (AST/ SGOT) 41H, Alanine Aminotransferase (ALT/SGPT) 24, Alkaline Phosphatase 57, Total Protein 6.5, Albumin 3.6 Assessment/Plan Assessment and Plan General debil as a result of CA receiving Chemo Peripheral Neuropathy Peripheral edema improved with [place] hose HTN with episode of hypotension improved with [place] hose and adjustment in meds Lumbar spondylosis SSS Plan Discharge to SNU tomorrow for ongoing care and therapies F/U with PCP or NH Physician See Orders Co-Morbidities that are continuing to impact the rehab process: (include details ) DANNA LAWS MD Jun 12, 2018 18:50
[2018-06-12] MEDS ORDERED: LISI10TA2 PO (18:54)
[2018-06-12] MEDS ORDERED: LEVO88TA54 PO (18:54)
[2018-06-13] MEDS: KCL 10 MEQ TAB (MICRO K) PO SCH (05:55)
[2018-06-13] MEDS: LEVOTHYROXINE 88 MCG (LEVOTHORID) TAB PO SCH (05:55)
[2018-06-13] MEDS: OMEGA 3 (FISH OIL) 1000 MG CAP PO SCH (05:55)
[2018-06-13 05:58] VITALS: BP 163/75
--- NOTE | 2018-06-13 08:11 | Cardiology Progress Note ---
Subjective Date Seen by Provider: Jun 13, 2018 Time Seen by Provider: 08:10 Subjective/Events-last exam Patient is complaining of fatigue, more confused today Review of Systems General: No Chills, No Night Sweats; Fatigue, Malaise; No Appetite, No Other HEENT: No Head Aches, No Visual Changes, No Eye Pain, No Ear Pain, No Dysphasia , No Sinus Congestion, No Post Nasal Drip, No Sore Throat, No Other Pulmonary: No Dyspnea, No Cough, No Pleuritic Chest Pain, No Other Cardiovascular: No: Chest Pain, Palpitations, Orthopnea, Paroxysmal Noc. Dyspnea, Edema, Lt Headedness, Other Objective-Cardiology Exam Last Set of Vital Signs Vital Signs 06/13/18 05:58 Temp 99.3 Pulse 79 Resp 18 B/P (MAP) 163/75 (104) Pulse Ox 96 O2 Delivery Room Air Capillary Refill : I&O Intake and Output 06/13/18 00:00 Intake Total 1394 ml Balance 1394 ml Intake Oral 1394 ml # Voids 6 # Bowel Movements 4 General: Alert, Oriented X3, Cooperative, No Acute Distress HEENT: Atraumatic, PERRLA, EOMI, Mucous Memb Moist/[place] Neck: Supple, No JVD Lungs: Clear to Auscultation Heart: Regular Rate, Normal S1, Normal S2 Abdomen: Normal Bowel Sounds, Soft, No Tenderness Extremities: No Clubbing, No Cyanosis Skin: No Rashes, No Breakdown Neuro: Normal Speech, Other (Sensation diminished from knees down to light touch Strength 2/5 at hips left knee flex and ext 3/5 Rt knee flex and ext 2/5) Psych/Mental Status: Mental Status NL Results Lab Laboratory Tests 06/12/18 17:00 A/P-Cardiology Admission Diagnosis Labile HTN generalized weakness CAD Assessment/Plan Generalized weakness and loss of energy. Receiving physical therapy, slightly worse today Labile hypertension- patient has history of resistant HTN, labile blood pressure , continue to monitor. Patient is wearing [place]HEL[place] hose. Bradycardia secondary to medication, has history of underlying sinus node dysfunction that was worsening with medication, his baseline heart rate is between 40 and 50. Patient has been asymptomatic with this heart rate as an outpatient. Consider decreasing beta redd if needed. 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 Medical therapy was recommended. Continue to monitor Renal ultrasound was done in November 2016 showing normal bilateral kidneys with no significance disease in the renal arteries, continue to monitor Melanoma stage III D, status post excision from the left arm and left axillary dissection, received immunotherapy, no radiation, followed by Dr. King Lipid profile was done in November 2017 showing total cholesterol 177, HDL 48, LDL 115, triglyceride 80, continue to monitor. Osteoarthritis, maintained on Celebrex which could be affecting negatively the blood pressure Extensive surgical history, in November 2015 underwent repair of bowel due to complication of hernia surgery and removal of infected mesh surgery. History of laminectomy, neck surgery for spinal stenosis, radical prostatectomy , carpal tunnel surgery. Mild bilateral carotid stenosis, ultrasound was done in December 2017, continue to monitor. Clinical Quality Measures DVT/VTE Risk/Contraindication: Risk Factor Score Per Nursin RFS Level Per Nursing on Admit: 4+=Very High TIERRA MARIN MD Jun 13, 2018 08:11
--- NOTE | 2018-06-13 08:41 | PM & R (SOAP) Progress Note ---
Subjective This was a face to face visit with the patient. Date Seen by Provider: Jun 13, 2018 Time Seen by Provider: 07:45 Subjective/Events-last exam Patient was seen in his room this AM Discharge all set for today to SNU Date Identified: Jun 13, 2018 Time Identified: 07:45 Medication Intervention: Discharge meds reviewed Objective Physician Exam Last Set of Vital Signs Vital Signs Date Time Temp Pulse Resp B/P (MAP) Pulse Ox O2 Delivery O2 Flow Rate FiO2 06/13/18 05:58 99.3 79 18 163/75 (104) 96 Room Air Capillary Refill : I&O Intake and Output 06/13/18 00:00 Intake Total 1394 ml Balance 1394 ml Intake Oral 1394 ml # Voids 6 # Bowel Movements 4 General: Alert, Oriented X3, Cooperative, No Acute Distress HEENT: Atraumatic, PERRLA, EOMI, Mucous Memb Moist/[place] Neck: Supple, No JVD Lungs: Clear to Auscultation Heart: Regular Rate, Normal S1, Normal S2 Abdomen: Normal Bowel Sounds, Soft, No Tenderness Extremities: No Clubbing, No Cyanosis Skin: No Rashes, No Breakdown Neuro: Normal Speech, Other (Sensation diminished from knees down to light touch Strength 2/5 at hips left knee flex and ext 3/5 Rt knee flex and ext 2/5) Psych/Mental Status: Mental Status NL Results Lab Data Laboratory Tests 06/12/18 17:00: White Blood Count 6.5, Red Blood Count 3.78L, Hemoglobin 10.5L, Hematocrit 32L, Mean Corpuscular Volume 86, Mean Corpuscular Hemoglobin 28, Mean Corpuscular Hemoglobin Concent 32, Red Cell Distribution Width 14.6H, Platelet Count 296, Mean Platelet Volume 9.5, Neutrophils (%) (Auto) 22L, Lymphocytes (%) (Auto) 32 , Monocytes (%) (Auto) 7, Eosinophils (%) (Auto) 38H, Basophils (%) (Auto) 1, Neutrophils # (Auto) 1.4L, Lymphocytes # (Auto) 2.1, Monocytes # (Auto) 0.4, Eosinophils # (Auto) 2.5H, Basophils # (Auto) 0.1, Neutrophils % (Manual) 26, Lymphocytes % (Manual) 22, Monocytes % (Manual) 7, Eosinophils % (Manual) 44, Basophils % (Manual) 1, Band Neutrophils 0, Blood Morphology Comment NORMAL, Sodium Level 141, Potassium Level 3.7, Chloride Level 105, Carbon Dioxide Level 27, Anion Gap 9, Blood Urea Nitrogen 18, Creatinine 0.78, Estimat Glomerular Filtration Rate > 60, BUN/Creatinine Ratio 23, Glucose Level 90, Calcium Level 9.5, Corrected Calcium 9.8, Total Bilirubin 0.5, Aspartate Amino Transf (AST/ SGOT) 41H, Alanine Aminotransferase (ALT/SGPT) 24, Alkaline Phosphatase 57, Total Protein 6.5, Albumin 3.6 Assessment/Plan Assessment and Plan Discharge today to SNU for ongoing care and therapies See orders F/U with PCP Co-Morbidities that are continuing to impact the rehab process: (include details ) DANNA LAWS MD Jun 13, 2018 08:41
--- NOTE | 2018-06-13 08:48 | Therapy Team Discharge Summary ---
Therapy Discharge Summary Discharge Recommendations Date of Discharge 06/13/18 Therapy D/C Recommendations: Home w/ Family Support, Occupational Therapy Home Care Physical Therapy This patient admitted to ARU from home due to decreased ability to care for himself at home and needing more and more assist from family. Prior to the recent decline, he had been mod indep in his home with a FWW. Upon admit to this unit, he was mod assist with transfers, walked 50 ft with FWW with min assist and refused to attempt stairs. Treatment has focused on functional strength, balance, transfers, gait and sequencing tasks to work to allow him to safely return home. However, his progress has been limited and he seems to have a bit more confusion. He is currently min assist with transfers and gait and and only able to go up/down 1 step with max assist. He has not met goals at this time. He is to discharge to LTC this date due to limited functional gains at this time. However, it is felt that with more extended therapy services his mobility may improve, therefore recommend continued skilled intervention. DC from ARU at this time. Occupational Therapy Decreased Activ Tolerance, Decreased UE Strength, Dependent Transfers, Impaired Bed Mobility, Impaired Self-Care Skills PT Unit Operator Goals Unit Operator Goals PT Unit Operator Goals Time Frame: Jun 22, 2018 Transfers (B,C,W/C) (FIM): 5 (unmet) Roll Left to Right (QC): 4 Sit to Lying (QC): 4 Lying-Sitting on Side/Bed(QC): 4 Sit to Stand (QC): 4 Chair/Vty-eo-Wvzvb Xfer(QC): 4 Car Transfer (QC): 4 Gait (FIM): 5 (unmet-scored 4) Distance: 200' Walk 10 feet (QC): 4 Walk 10ft-Uneven Surface(QC): 4 Walk 50ft with 2 Turns (QC): 4 Walk 150 ft (QC): 4 Gait Level of Assist: 5 Gait Assistive Device: FWW Stairs (FIM): 1 (met) # of Steps: 1 1 Step (curb) (QC): 4 Stairs Level Of Assist: 4 Limited functional progress due to cognitive decline. Pt to discharge to LTC OT Unit Operator Goals Unit Operator Goals Time Frame: Jun 22, 2018 Eating (FIM): 7 Eating (QC): 6 Oral Hygiene (QC): 6 Grooming(FIM): 6 Bathing(FIM): 6 Shower/Bathe Self (QC): 6 Upper Body Dressing(FIM): 6 Upper Body Dressing (QC): 6 Lower Body Dressing(FIM): 6 Lower Body Dressing (QC): 6 On/Off Footwear (QC): 6 Toileting(FIM): 6 Toileting Hygiene (QC): 6 Toilet/Commode Transfer(FIM): 6 Toilet/Commode Transfer (QC): 6 Shower Transfer(FIM): 6 Comprehension(FIM): 6 Expression (FIM): 7 Social Interaction(FIM): 7 Problem Solving(FIM): 7 Memory(FIM): 7 Additional Goals: 1-Demonstrate ADL Tasks, 2-Verbalize Understanding, 3- ImproveStrength/Abdulkadir 1=Demonstrate adherence to instructed precautions during ADL tasks. 2=Patient will verbalize/demonstrate understanding of assistive devices/ modifications for ADL. 3=Patient will improve strength/tolerance for activity to enable patient to perform ADL's. Speech Unit Operator Goals [facility] Goals Patient will be able to return home safely following his rehab. Comprehension: 6 Expression: 7 Social Interaction: 7 Problem Solvin Memory: 7 KRUPA ACKERMAN PT Jun 13, 2018 08:48
--- NOTE | 2018-06-13 09:14 | Therapy Team Discharge Summary ---
Therapy Discharge Summary Discharge Recommendations Date of Discharge June 13, 2018 Therapy D/C Recommendations: Retirement (TCU/NH) (OT) Occupational Therapy Pt was seen for skilled OT to increase his independence in basic self care after frequent fall at home and treatment for cancer. On admission he was independent with eating, needed supervision for grooming, bathing, upper body dressing, SBA for lower body dressing, toileting and shower transfer and CGA for toilet transfers. He declined physically and also had periods of confusion. By discharge he was still independent with eating, modified independent with grooming, setup for upper body dressing, SBA for bathing, min assist lower body dressing, min/CGA assist shower transfer. He toileted mod I but had other periods of needing help to get off BSC over toilet. He used dressing sick, ornamental metal worker helper, sock aid, long shoe horn, long handled sponge, FWW, BSC over toilet. Chair alarm was used for safety. See tx plan for goals met. DC to SNF for continued OT. Decreased Activ Tolerance, Decreased UE Strength, Dependent Transfers, Impaired Bed Mobility, Impaired Self-Care Skills PT Wild Life Photographer Goals [facility] Goals PT [facility] Goals Time Frame: Jun 22, 2018 Transfers (B,C,W/C) (FIM): 5 (unmet) Roll Left to Right (QC): 4 Sit to Lying (QC): 4 Lying-Sitting on Side/Bed(QC): 4 Sit to Stand (QC): 4 Chair/Uci-xx-Ooifb Xfer(QC): 4 Car Transfer (QC): 4 Gait (FIM): 5 (unmet-scored 4) Distance: 200' Walk 10 feet (QC): 4 Walk 10ft-Uneven Surface(QC): 4 Walk 50ft with 2 Turns (QC): 4 Walk 150 ft (QC): 4 Gait Level of Assist: 5 Gait Assistive Device: FWW Stairs (FIM): 1 (met) # of Steps: 1 1 Step (curb) (QC): 4 Stairs Level Of Assist: 4 OT [facility] Goals Wild Life Photographer Goals Time Frame: Jun 22, 2018 Eating (FIM): 7 (met) Eating (QC): 6 (met) Oral Hygiene (QC): 6 (met) Grooming(FIM): 6 (met) Bathing(FIM): 6 (not met) Shower/Bathe Self (QC): 6 (not met) Upper Body Dressing(FIM): 6 (not met) Upper Body Dressing (QC): 6 (not met) Lower Body Dressing(FIM): 6 (not met) Lower Body Dressing (QC): 6 (not met) On/Off Footwear (QC): 6 (not met) Toileting(FIM): 6 (met) Toileting Hygiene (QC): 6 (met) Toilet/Commode Transfer(FIM): 6 (met) Toilet/Commode Transfer (QC): 6 (met) Shower Transfer(FIM): 6 (not met) Comprehension(FIM): 6 Expression (FIM): 7 Social Interaction(FIM): 7 Problem Solving(FIM): 7 Memory(FIM): 7 Additional Goals: 1-Demonstrate ADL Tasks, 2-Verbalize Understanding, 3- ImproveStrength/Abdulkadir 1=Demonstrate adherence to instructed precautions during ADL tasks. 2=Patient will verbalize/demonstrate understanding of assistive devices/ modifications for ADL. 3=Patient will improve strength/tolerance for activity to enable patient to perform ADL's. Speech Wild Life Photographer Goals [facility] Goals Patient will be able to return home safely following his rehab. Comprehension: 6 Expression: 7 Social Interaction: 7 Problem Solvin Memory: 7 KWAN CASILLAS OT Jun 13, 2018 09:14
[2018-06-13] MEDS: FUROSEMIDE 40 MG (LASIX) TAB PO SCH (09:39)
[2018-06-13] MEDS: CELECOXIB 100 MG (CeleBREX) CAP PO SCH (09:39)
[2018-06-13] MEDS: ASPIRIN E.C. 81 MG (ECOTRIN) TAB PO SCH (09:39)
[2018-06-13] MEDS: lisINopril 10 MG (PRINIVIL) TABLET PO SCH (09:39)
[2018-06-13] MEDS: NEBIVOLOL 5 MG TAB (BYSTOLIC) PO SCH (09:39)
[2018-06-13] MEDS: DOCUSATE SODIUM 100 MG (COLACE) CAP PO SCH (09:39)
[2018-06-13] MEDS: ENOXAPARIN 40 MG/0.4 ML (LOVENOX) SYR SC SCH (13:53)
== END 2018-06-13 14:00 | DRG 948 ==
PROVIDERS: ADMIT Physical Medicine & Rehabilitation; ATTEND Physical Medicine & Rehabilitation
DX: R53.1 Weakness (principal); R29.6 Repeated falls; G62.9 Polyneuropathy, unspecified; R60.0 Localized edema; I10 Essential (primary) hypertension; C43.62 Malignant melanoma of left upper limb, including shoulder; I25.10 Atherosclerotic heart disease of native coronary artery without angina pectoris; I49.5 Sick sinus syndrome; I95.2 Hypotension due to drugs; I25.41 Coronary artery aneurysm; K59.09 Other constipation; M47.816 Spondylosis without myelopathy or radiculopathy, lumbar region; R21 Rash and other nonspecific skin eruption; M19.90 Unspecified osteoarthritis, unspecified site; I65.23 Occlusion and stenosis of bilateral carotid arteries; Z87.891 Personal history of nicotine dependence; Z85.46 Personal history of malignant neoplasm of prostate
CPT/HCPCS: 36415; 80053; 84443; 85007; 85025; 85027; 93005; 93306

== ENCOUNTER 2018-06-14 13:15 | Outpatient (RCR) | payer MEDICARE, OTHER ==
[2018-04-06 10:26] LABS: BASOPHILS # (AUTO) 0.1 10^3/uL (0.0-0.1); BASOPHILS % (AUTO) 1 % (0-10); EOSINOPHILS % (AUTO) 0 % (0-10); HEMATOCRIT 33 % (40-54); HEMOGLOBIN 11.1 G/DL (13.3-17.7); LYMPHOCYTES # (AUTO) 1.9 X 10^3 (1.0-4.0); LYMPHOCYTES % (AUTO) 33 % (12-44); MEAN CORPUSCULAR HEMOGLOBIN 30 PG (25-34); MEAN CORPUSCULAR HGB CONC 33 G/DL (32-36); MEAN CORPUSCULAR VOLUME 89 FL (80-99); MEAN PLATELET VOLUME 9.5 FL (7.4-10.4); MONOCYTES # (AUTO) 0.5 X 10^3 (0.0-1.0); MONOCYTES % (AUTO) 8 % (0-12); NEUTROPHILS # (AUTO) 3.3 X 10^3 (1.8-7.8); NEUTROPHILS % (AUTO) 58 % (42-75); PLATELET COUNT 254 10^3/uL (130-400); RED BLOOD COUNT 3.75 10^6/uL (4.35-5.85); RED CELL DISTRIBUTION WIDTH 15.4 % (10.0-14.5); WHITE BLOOD COUNT 5.7 10^3/uL (4.3-11.0)
[2018-04-06 10:43] LABS: ALANINE AMINOTRANSFERASE 21 U/L (0-55); ALBUMIN 3.7 GM/DL (3.2-4.5); ALKALINE PHOSPHATASE 50 U/L (40-136); BUN/CREATININE RATIO 26; CALCIUM 9.1 MG/DL (8.5-10.1); CARBON DIOXIDE 25 MMOL/L (21-32); CHLORIDE 106 MMOL/L (98-107); GFR ESTIMATED > 60; GLUCOSE 124 MG/DL (70-105); POTASSIUM 3.9 MMOL/L (3.6-5.0); SODIUM 138 MMOL/L (135-145); TOTAL PROTEIN 6.7 GM/DL (6.4-8.2)
[2018-05-01 09:30] LABS: BASOPHILS % (AUTO) 1 % (0-10); EOSINOPHILS # (AUTO) 0.7 10^3/uL (0.0-0.3); EOSINOPHILS % (AUTO) 12 % (0-10); HEMATOCRIT 32 % (40-54); HEMOGLOBIN 10.5 G/DL (13.3-17.7); LYMPHOCYTES # (AUTO) 1.9 X 10^3 (1.0-4.0); LYMPHOCYTES % (AUTO) 35 % (12-44); MEAN CORPUSCULAR HEMOGLOBIN 28 PG (25-34); MEAN CORPUSCULAR HGB CONC 33 G/DL (32-36); MEAN CORPUSCULAR VOLUME 87 FL (80-99); MEAN PLATELET VOLUME 9.3 FL (7.4-10.4); MONOCYTES # (AUTO) 0.5 X 10^3 (0.0-1.0); MONOCYTES % (AUTO) 9 % (0-12); NEUTROPHILS # (AUTO) 2.4 X 10^3 (1.8-7.8); NEUTROPHILS % (AUTO) 43 % (42-75); PLATELET COUNT 268 10^3/uL (130-400); RED BLOOD COUNT 3.71 10^6/uL (4.35-5.85); RED CELL DISTRIBUTION WIDTH 14.3 % (10.0-14.5); WHITE BLOOD COUNT 5.6 10^3/uL (4.3-11.0)
[2018-05-01 09:46] LABS: ALANINE AMINOTRANSFERASE 19 U/L (0-55); ALBUMIN 3.5 GM/DL (3.2-4.5); ALKALINE PHOSPHATASE 52 U/L (40-136); BILIRUBIN,TOTAL 0.8 MG/DL (0.1-1.0); BUN/CREATININE RATIO 21; CALCIUM 9.2 MG/DL (8.5-10.1); CARBON DIOXIDE 26 MMOL/L (21-32); CHLORIDE 107 MMOL/L (98-107); CREATININE SERUM 0.73 MG/DL (0.60-1.30); GFR ESTIMATED > 60; GLUCOSE 117 MG/DL (70-105); POTASSIUM 3.4 MMOL/L (3.6-5.0); SODIUM 138 MMOL/L (135-145); TOTAL PROTEIN 6.1 GM/DL (6.4-8.2)
[~2018-06-14] VITALS: Ht 175.3 cm; Wt 84.4 kg
[~2018-06-14 13:15] MED LIST changes: +LEVO75TA6 PO; +LEVO88TA54 PO; +LISI10TA2 PO; +NIVOLUMAB 200 MG, NIVOLUMAB 40 MG in NS (IVPB) CANCER CENTER 50 ML IV SCH; +NIVOLUMAB 240 MG in NS (IVPB) CANCER CENTER 50 ML IV SCH; +NS IV 500 ML (CANCER CENTER) 500 ML IV SCH; +POTA10CA43 PO
[2018-06-14 13:41] LABS: BASOPHILS # (AUTO) 0.1 10^3/uL (0.0-0.1); BASOPHILS % (AUTO) 1 % (0-10); EOSINOPHILS # (AUTO) 2.4 10^3/uL (0.0-0.3); EOSINOPHILS % (AUTO) 36 % (0-10); HEMATOCRIT 32 % (40-54); HEMOGLOBIN 10.4 G/DL (13.3-17.7); LYMPHOCYTES % (AUTO) 30 % (12-44); MEAN CORPUSCULAR HEMOGLOBIN 28 PG (25-34); MEAN CORPUSCULAR HGB CONC 32 G/DL (32-36); MEAN CORPUSCULAR VOLUME 86 FL (80-99); MEAN PLATELET VOLUME 9.8 FL (7.4-10.4); MONOCYTES # (AUTO) 0.5 X 10^3 (0.0-1.0); MONOCYTES % (AUTO) 7 % (0-12); NEUTROPHILS # (AUTO) 1.8 X 10^3 (1.8-7.8); NEUTROPHILS % (AUTO) 26 % (42-75); PLATELET COUNT 295 10^3/uL (130-400); RED BLOOD COUNT 3.74 10^6/uL (4.35-5.85); RED CELL DISTRIBUTION WIDTH 14.8 % (10.0-14.5); WHITE BLOOD COUNT 6.8 10^3/uL (4.3-11.0)
[2018-06-14 13:59] LABS: ALANINE AMINOTRANSFERASE 26 U/L (0-55); ALBUMIN 3.5 GM/DL (3.2-4.5); ALKALINE PHOSPHATASE 53 U/L (40-136); BILIRUBIN,TOTAL 0.6 MG/DL (0.1-1.0); BUN/CREATININE RATIO 22; CALCIUM 9.2 MG/DL (8.5-10.1); CARBON DIOXIDE 26 MMOL/L (21-32); CHLORIDE 106 MMOL/L (98-107); CREATININE SERUM 0.83 MG/DL (0.60-1.30); GFR ESTIMATED > 60; GLUCOSE 99 MG/DL (70-105); POTASSIUM 3.5 MMOL/L (3.6-5.0); SODIUM 141 MMOL/L (135-145); TOTAL PROTEIN 6.4 GM/DL (6.4-8.2)
[2018-06-20] MEDS ORDERED: ONDA4TAB11 SL (06:21)
[2018-06-20] MEDS ORDERED: CEPH-507 PO (06:21)
[2018-06-22] MEDS ORDERED: ONDA4TAB11 PO (09:46)
[2018-06-22] MEDS ORDERED: LEVO88TA54 PO (09:46)
[2018-06-22] MEDS ORDERED: POTA10TA10 PO (09:46)
[2018-06-22] MEDS ORDERED: LISI10TA2 PO (09:46)
[2018-06-22] MEDS ORDERED: ACET325T38 PO (09:46)
[2018-06-22] MEDS ORDERED: NEBI5TAB8 PO (09:46)
[2018-06-22] MEDS ORDERED: CEPH-507 PO (09:54)
== END 2018-06-24 | disposition home or self-care (01) ==
LOC: ONC 13:15
PROVIDERS: ATTEND Internal Medicine Hematology & Oncology
DX: Z51.11 Encounter for antineoplastic chemotherapy (principal); C43.62 Malignant melanoma of left upper limb, including shoulder; D47.2 Monoclonal gammopathy; I25.10 Atherosclerotic heart disease of native coronary artery without angina pectoris; I10 Essential (primary) hypertension; I49.5 Sick sinus syndrome; M19.91 Primary osteoarthritis, unspecified site; Z79.899 Other long term (current) drug therapy; Z79.82 Long term (current) use of aspirin; Z87.891 Personal history of nicotine dependence
CPT/HCPCS: 36415; 36591; 80053; 84443; 85025; 96413; 99213

== ENCOUNTER 2018-06-20 03:34 | Emergency (ER) | payer MEDICARE, OTHER ==
[~2018-06-20] VITALS: Ht 175.3 cm; Wt 79.9 kg
[~2018-06-20 03:34] MED LIST changes: -NIVOLUMAB 200 MG, NIVOLUMAB 40 MG in NS (IVPB) CANCER CENTER 50 ML IV SCH; -NIVOLUMAB 240 MG in NS (IVPB) CANCER CENTER 50 ML IV SCH; -NS IV 500 ML (CANCER CENTER) 500 ML IV SCH
[2018-06-20 03:39] VITALS: BP 157/86
--- OUTSIDE RECORDS SUMMARY | 2018-06-20 03:43 | XMS REPORT | Continuity of Care Document ---
Author Author [facility] Organization [facility] Address Unknown Phone Unavailable Allergies Active Description Code Type Severity Reaction Onset Reported/Identified Relationship to Patient Clinical Status Yes NKANo Known Allergies NKA Miscellaneous Allergy Mild N/A 03/12/2006 Yes No Known Drug Allergies [id number] Drug Allergy Unknown N/A 11/09/2017 Medications There is no data. Problems Date Dx Coded Attending Type Code Diagnosis Diagnosed By AURE JONES MD, Ot 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, I AURE JONES MD, Ot 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 GAMMOPATHY AURE JONES MD, Ot I10 ESSENTIAL (PRIMARY) HYPERTENSION AURE JONES MD, Ot I25.10 ATHSCL HEART DISEASE OF [place] CORONARY AURE JONES MD, Ot I49.5 SICK SINUS SYNDROME AURE JONES MD Ot M19.91 PRIMARY OSTEOARTHRITIS, UNSPECIFIED SITE AURE JONES MD Ot Z51.11 ENCOUNTER FOR ANTINEOPLASTIC CHEMOTHERAP AURE JONES MD Ot Z79.82 MCC (CURRENT) USE OF ASPIRIN AURE JONES MD Ot Z79.899 OTHER MCC (CURRENT) DRUG THERAPY AURE JONES MD Ot Z87.891 PERSONAL HISTORY OF NICOTINE DEPENDENCE 06/02/1649 AURE JONES MD, Ot 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, I 06/02/1649 AURE JONES MD, Ot 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 GAMMOPATHY 06/02/1649 AURE JONES MD Ot I10 ESSENTIAL (PRIMARY) HYPERTENSION 06/02/1649 AURE JONES MD Ot I25.10 ATHSCL HEART DISEASE OF [place] CORONARY 06/02/1649 AURE JONES MD Ot I49.5 SICK SINUS SYNDROME 06/02/1649 AURE JONES MD, Ot M19.91 PRIMARY OSTEOARTHRITIS, UNSPECIFIED SITE 06/02/1649 AURE JONES MD Ot Z79.82 MCC (CURRENT) USE OF ASPIRIN 06/02/1649 AURE JONES MD Ot Z79.899 OTHER MCC (CURRENT) DRUG THERAPY 06/02/1649 AURE JONES MD [...] KATELYNN Ashwin Ot V58.69 08/28/2014 JOSUE JIMENEZ, KATEYLNN Ashwin Ot 273.1 08/28/2014 JOSUE JIMENEZ, KATELYNN [...] JOSUE JIMENEZ, KATELYNN Christopher Ot Z79.899 OTHER MCC (CURRENT) DRUG THERAPY 09/24/2015 JOSUE JIMENEZ, KATELYNN [...] INGUINAL HERNIA, W/O OBST OR GANGR, 10/17/2015 JOYTHI NEWELL MD Ot K40.90 UNIL INGUINAL HERNIA, [...] JOSUE JIMENEZ, KATELYNN Christopher Ot Z79.899 OTHER COMPLIANCE MGR (CURRENT) DRUG THERAPY 10/22/2015 DANNA LAWS MD [...] 10/24/2015 KATELYNN SALAS MD Ot Z79.899 OTHER COMPLIANCE MGR (CURRENT) DRUG THERAPY 10/25/2015 DANNA LAWS MD Ot E87.6 HYPOKALEMIA 10/25/2015 DANNA LAWS MD Ot I10 ESSENTIAL (PRIMARY) HYPERTENSION 10/25/2015 DANNA LAWS MD Ot J18.9 PNEUMONIA, UNSPECIFIED ORGANISM 10/25/2015 DANNA LAWS MD E Ot 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 RADICULOPA 10/25/2015 DANNA LAWS MD E Ot R33.9 RETENTION [...] JOSUE JIMENEZ KATELYNN Ashwin Ot Z79.899 OTHER COMPLIANCE MGR (CURRENT) DRUG THERAPY 12/10/2015 FRANCISCO LUNA MD Ot N39.0 URINARY TRACT INFECTION, SITE NOT SPECIF 12/23/2015 KATELYNN SALAS MD Ot 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 GAMMOPATHY 12/23/2015 KATELYNN SALAS MD Ot I10 ESSENTIAL (PRIMARY) HYPERTENSION 12/23/2015 KATELYNN SALAS MD Ot M12.9 ARTHROPATHY, UNSPECIFIED 12/23/2015 KATELYNN SALAS MD Ot M51.9 UNSP THORACIC, THORACOLUM AND LUMBOSACR 12/23/2015 KATELYNN SALAS MD Ot Z79.899 OTHER MCC (CURRENT) DRUG THERAPY 03/24/2016 AURE JONES MD, Ot 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 GAMMOPATHY 03/24/2016 AURE JONES MD Ot I10 ESSENTIAL (PRIMARY) HYPERTENSION 03/24/2016 AURE JONES MD Ot M12.9 ARTHROPATHY, UNSPECIFIED 03/24/2016 AURE JONES MD Ot M51.9 UNSP THORACIC, THORACOLUM AND LUMBOSACR 03/24/2016 AURE JONES MD Ot Z79.899 OTHER MCC (CURRENT) DRUG THERAPY 06/10/2016 Ot 356.9 IDIO [...] 06/10/2016 AURE JONES MD Ot Z79.899 OTHER MCC (CURRENT) DRUG THERAPY 06/10/2016 TERRY HENRY MD, Ot I10 ESSENTIAL (PRIMARY) HYPERTENSION 06/10/2016 TERYR HENRY MD Ot J06.9 ACUTE UPPER RESPIRATORY INFECTION, UNSPE 06/10/2016 TERRY HENRY MD Ot R07.89 OTHER CHEST PAIN 06/10/2016 TERRY HENRY MD, Ot Z79.899 OTHER MCC (CURRENT) DRUG THERAPY 06/11/2016 TERRY HENRY MD, Ot I10 ESSENTIAL (PRIMARY) HYPERTENSION 06/11/2016 TERRY EHNRY MD Ot J06.9 ACUTE UPPER RESPIRATORY INFECTION, UNSPE 06/11/2016 TERRY HENRY MD Ot R07.89 OTHER CHEST PAIN 06/11/2016 TERRY HENRY MD, Ot Z79.899 OTHER MCC (CURRENT) DRUG THERAPY 11/11/2016 TIERRA MARIN MD [...] 11/22/2016 AURE JONES MD Ot Z79.899 OTHER COMPLIANCE MGR (CURRENT) DRUG THERAPY 11/22/2016 TIERRA MARIN MD [...] 04/26/2017 AURE JONES MD Ot Z79.899 OTHER MCC (CURRENT) DRUG THERAPY 04/26/2017 TIERRA MARIN MD [...] MD Ot I25.10 ATHSCL HEART DISEASE OF [place] CORONARY 05/04/2017 TIERRA MARIN MD Ot I49.5 SICK SINUS SYNDROME 05/04/2017 TIERRA MARIN MD Ot 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[place] 05/04/2017 TIERRA MARIN MD Ot M19.91 PRIMARY OSTEOARTHRITIS, UNSPECIFIED SITE 05/04/2017 TIERRA MARIN MD Ot R60.0 LOCALIZED EDEMA 05/04/2017 TIERRA MARIN MD Ot Z79.899 OTHER MCC (CURRENT) DRUG THERAPY 05/18/2017 TIERRA MARIN MD [...] 09/22/2017 AURE JONES MD Ot Z79.899 OTHER MCC (CURRENT) DRUG THERAPY 09/28/2017 AURE JONES MD Ot 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, I 09/28/2017 AURE JONES MD, Ot 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 GAMMOPATHY 09/28/2017 AURE JONES MD Ot I10 ESSENTIAL (PRIMARY) HYPERTENSION 09/28/2017 AURE JONES MD Ot I25.10 ATHSCL HEART DISEASE OF [place] CORONARY 09/28/2017 AURE JONES MD Ot I49.5 SICK SINUS SYNDROME 09/28/2017 AURE JONES MD Ot M19.91 PRIMARY OSTEOARTHRITIS, UNSPECIFIED SITE 09/28/2017 AURE JONES MD Ot Z79.82 MCC (CURRENT) USE OF ASPIRIN 09/28/2017 AURE JONES MD Ot Z79.899 OTHER COMPLIANCE MGR (CURRENT) DRUG THERAPY 09/28/2017 AURE JONES MD [...] MD Ot I25.10 ATHSCL HEART DISEASE OF [place] CORONARY 09/30/2017 AURE JONES MD Ot I49.5 SICK SINUS SYNDROME 09/30/2017 AURE JONES MD Ot M19.91 PRIMARY OSTEOARTHRITIS, UNSPECIFIED SITE 09/30/2017 AURE JONES MD Ot Z79.82 COMPLIANCE MGR (CURRENT) USE OF ASPIRIN 09/30/2017 AURE JONES MD Ot Z79.899 OTHER COMPLIANCE MGR (CURRENT) DRUG THERAPY 09/30/2017 AURE JONES MD [...] HYPERTENSION 10/07/2017 KIKI ROWE MD Ot Z79.82 COMPLIANCE MGR (CURRENT) USE OF ASPIRIN 10/07/2017 KIKI ROWE MD Ot Z79.899 OTHER MCC (CURRENT) DRUG THERAPY 10/07/2017 KIKI ROWE MD Ot Z87.891 PERSONAL HISTORY OF NICOTINE DEPENDENCE 10/11/2017 KIKI ROWE MD Ot 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, I 10/11/2017 KIKI ROWE MD Ot 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 10/11/2017 KIKI ROWE MD Ot I10 ESSENTIAL (PRIMARY) HYPERTENSION 10/11/2017 KIKI ROWE MD Ot Z79.82 MCC (CURRENT) USE OF ASPIRIN 10/11/2017 KIKI ROWE MD Ot Z79.899 OTHER MCC (CURRENT) DRUG THERAPY 10/11/2017 KIKI ROWE MD Ot Z87.891 PERSONAL HISTORY OF NICOTINE DEPENDENCE 10/11/2017 KIKI ROWE MD Ot 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, I 10/11/2017 KIKI ROWE MD Ot 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 10/11/2017 KIKI ROWE MD Ot I10 ESSENTIAL (PRIMARY) HYPERTENSION 10/11/2017 KIKI ROWE MD Ot Z79.82 MCC (CURRENT) USE OF ASPIRIN 10/11/2017 KIKI ROWE MD Ot Z79.899 OTHER COMPLIANCE MGR (CURRENT) DRUG THERAPY 10/11/2017 KIKI ROWE MD Ot Z87.891 PERSONAL HISTORY OF NICOTINE DEPENDENCE 10/12/2017 KIKI ROWE MD, Ot 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, I 10/12/2017 KIKI ROWE MD, Ot 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 10/12/2017 KIKI ROWE MD, Ot I10 ESSENTIAL (PRIMARY) HYPERTENSION 10/12/2017 KIKI ROWE MD, Ot Z79.82 COMPLIANCE MGR (CURRENT) USE OF ASPIRIN 10/12/2017 KIKI ROWE MD, Ot Z79.899 OTHER COMPLIANCE MGR (CURRENT) DRUG THERAPY 10/12/2017 KIKI ROWE MD, Ot Z87.891 PERSONAL HISTORY OF NICOTINE DEPENDENCE 10/12/2017 JREEMY JIMENEZ, FRANCISCO Christopher Ot N39.0 URINARY TRACT INFECTION, SITE NOT SPECIF 10/12/2017 AURE JONES MD, Ot 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, I 10/12/2017 AURE JONES MD Ot 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 GAMMOPATHY 10/12/2017 AURE JONES MD Ot I10 ESSENTIAL (PRIMARY) HYPERTENSION 10/12/2017 AURE JONES MD Ot I25.10 ATHSCL HEART DISEASE OF [place] CORONARY 10/12/2017 AURE JONES MD Ot I49.5 SICK SINUS SYNDROME 10/12/2017 AURE JONES MD Ot M19.91 PRIMARY OSTEOARTHRITIS, UNSPECIFIED SITE 10/12/2017 AURE JONES MD Ot Z79.82 COMPLIANCE MGR (CURRENT) USE OF ASPIRIN 10/12/2017 AURE JONES MD Ot Z79.899 OTHER MCC (CURRENT) DRUG THERAPY 10/12/2017 AURE JONES MD [...] HYPERTENSION 10/13/2017 KIKI ROWE MD, Ot Z79.82 COMPLIANCE MGR (CURRENT) USE OF ASPIRIN 10/13/2017 KIKI ROWE MD, Ot Z79.899 OTHER MCC (CURRENT) DRUG THERAPY 10/13/2017 KIKI ROWE MD, Ot Z87.891 PERSONAL HISTORY OF NICOTINE DEPENDENCE 10/16/2017 KIKI ROWE MD, Ot 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, I 10/16/2017 KIKI ROWE MD Ot 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 10/16/2017 KIKI ROWE MD Ot I10 ESSENTIAL (PRIMARY) HYPERTENSION 10/16/2017 KIKI ROWE MD Ot Z79.82 COMPLIANCE MGR (CURRENT) USE OF ASPIRIN 10/16/2017 KIKI ROWE MD Ot Z79.899 OTHER MCC (CURRENT) DRUG THERAPY 10/16/2017 KIKI ROWE MD, Ot Z87.891 PERSONAL HISTORY OF NICOTINE DEPENDENCE 10/19/2017 KIKI ROWE MD, Ot 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, I 10/19/2017 KIKI ROWE MD Ot 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 10/19/2017 KIKI ROWE MD, Ot 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, I 10/19/2017 IKKI ROWE MD Ot C79.9 SECONDARY MALIGNANT NEOPLASM [...] MD Ot I25.10 ATHSCL HEART DISEASE OF [place] CORONARY 10/24/2017 KIKI ROWE MD Ot K57.30 DVRTCLOS OF LG INT W/O PERFORATION OR AB 10/24/2017 KIKI ROWE MD Ot Z79.82 COMPLIANCE MGR (CURRENT) USE OF ASPIRIN 10/24/2017 KIKI ROWE MD Ot Z79.899 OTHER MCC (CURRENT) DRUG THERAPY 10/24/2017 KIKI ROWE MD [...] MD Ot I25.10 ATHSCL HEART DISEASE OF [place] CORONARY 10/26/2017 KIKI ROWE MD Ot K57.30 DVRTCLOS OF LG INT W/O PERFORATION OR AB 10/26/2017 KIKI ROWE MD Ot Z79.82 COMPLIANCE MGR (CURRENT) USE OF ASPIRIN 10/26/2017 KIKI ROWE MD Ot Z79.899 OTHER COMPLIANCE MGR (CURRENT) DRUG THERAPY 10/26/2017 KIKI ROWE MD Ot Z87.891 PERSONAL HISTORY OF NICOTINE DEPENDENCE 10/26/2017 KIKI ROWE MD Ot 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, I 10/26/2017 KIKI ROWE MD Ot I25.10 ATHSCL HEART DISEASE OF [place] CORONARY 10/26/2017 KIKI ROWE MD Ot K57.30 DVRTCLOS OF LG INT W/O PERFORATION OR AB 10/26/2017 KIKI ROWE MD Ot Z79.82 MCC (CURRENT) USE OF ASPIRIN 10/26/2017 KIKI ROWE MD Ot Z79.899 OTHER COMPLIANCE MGR (CURRENT) DRUG THERAPY 10/26/2017 KIKI ROWE MD, Ot Z87.891 PERSONAL HISTORY OF NICOTINE DEPENDENCE 10/26/2017 AURE JONES MD, Ot 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, I 10/26/2017 AURE JONES MD Ot 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 GAMMOPATHY 10/26/2017 AURE JONES MD Ot I10 ESSENTIAL (PRIMARY) HYPERTENSION 10/26/2017 AURE JONES MD Ot I25.10 ATHSCL HEART DISEASE OF [place] CORONARY 10/26/2017 AURE JONES MD Ot I49.5 SICK SINUS SYNDROME 10/26/2017 AURE JONES MD, Ot M19.91 PRIMARY OSTEOARTHRITIS, UNSPECIFIED SITE 10/26/2017 AURE JONES MD, Ot Z79.82 MCC (CURRENT) USE OF ASPIRIN 10/26/2017 AURE JONES MD, Ot Z79.899 OTHER MCC (CURRENT) DRUG THERAPY 10/26/2017 AURE JONES MD, Ot Z87.891 PERSONAL HISTORY OF NICOTINE DEPENDENCE 10/27/2017 KIKI ROWE MD, Ot E04.1 NONTOXIC SINGLE THYROID NODULE 10/30/2017 KIKI ROWE MD, Ot 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, I 10/30/2017 KIKI ROWE MD, Ot I25.10 ATHSCL HEART DISEASE OF [place] CORONARY 10/30/2017 KIKI ROWE MD, Ot K57.30 DVRTCLOS OF LG INT W/O PERFORATION OR AB 10/30/2017 KIKI ROWE MD, Ot Z79.82 MCC (CURRENT) USE OF ASPIRIN 10/30/2017 KIKI ROWE MD, Ot Z79.899 OTHER COMPLIANCE MGR (CURRENT) DRUG THERAPY 10/30/2017 KIKI ROWE MD, [...] MD Ot I25.10 ATHSCL HEART DISEASE OF [place] CORONARY 11/03/2017 AURE JONES MD Ot I49.5 SICK SINUS SYNDROME 11/03/2017 AURE JONES MD Ot M19.91 PRIMARY OSTEOARTHRITIS, UNSPECIFIED SITE 11/03/2017 AURE JONES MD Ot Z79.82 COMPLIANCE MGR (CURRENT) USE OF ASPIRIN 11/03/2017 AURE JONES MD Ot Z79.899 OTHER MCC (CURRENT) DRUG THERAPY 11/03/2017 AURE JONES MD Ot Z87.891 PERSONAL HISTORY OF NICOTINE DEPENDENCE 11/03/2017 AURE JONES MD Ot 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, I 11/03/2017 AURE JONES MD Ot 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 GAMMOPATHY 11/03/2017 AURE JONES MD Ot I10 ESSENTIAL (PRIMARY) HYPERTENSION 11/03/2017 AURE JONES MD Ot I25.10 ATHSCL HEART DISEASE OF [place] CORONARY 11/03/2017 AURE JONES MD Ot I49.5 SICK SINUS SYNDROME 11/03/2017 AURE JONES MD Ot M19.91 PRIMARY OSTEOARTHRITIS, UNSPECIFIED SITE 11/03/2017 AURE JONES MD Ot Z79.82 MCC (CURRENT) USE OF ASPIRIN 11/03/2017 AURE JONES MD Ot Z79.899 OTHER COMPLIANCE MGR (CURRENT) DRUG THERAPY 11/03/2017 AURE JONES MD Ot Z87.891 PERSONAL HISTORY OF NICOTINE DEPENDENCE 11/04/2017 AURE JONES MD Ot 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, I 11/04/2017 AURE JONES MD Ot 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 GAMMOPATHY 11/04/2017 AURE JONES MD Ot I10 ESSENTIAL (PRIMARY) HYPERTENSION 11/04/2017 AURE JONES MD Ot I25.10 ATHSCL HEART DISEASE OF [place] CORONARY 11/04/2017 AURE JONES MD Ot I49.5 SICK SINUS SYNDROME 11/04/2017 AURE JONES MD Ot M19.91 PRIMARY OSTEOARTHRITIS, UNSPECIFIED SITE 11/04/2017 AURE JONES MD Ot Z79.82 COMPLIANCE MGR (CURRENT) USE OF ASPIRIN 11/04/2017 AURE JONES MD Ot Z79.899 OTHER COMPLIANCE MGR (CURRENT) DRUG THERAPY 11/04/2017 AURE JONES MD [...] MD Ot I25.10 ATHSCL HEART DISEASE OF [place] CORONARY 11/08/2017 AURE JONES MD Ot I49.5 SICK SINUS SYNDROME 11/08/2017 AURE JONES MD Ot M19.91 PRIMARY OSTEOARTHRITIS, UNSPECIFIED SITE 11/08/2017 AURE JONES MD Ot Z79.82 MCC (CURRENT) USE OF ASPIRIN 11/08/2017 AURE JONES MD Ot Z79.899 OTHER COMPLIANCE MGR (CURRENT) DRUG THERAPY 11/08/2017 AURE JONES MD [...] MD Ot I25.10 ATHSCL HEART DISEASE OF [place] CORONARY 11/11/2017 KIKI ROWE MD Ot Z79.82 MCC (CURRENT) USE OF ASPIRIN 11/11/2017 KIKI ROWE MD Ot Z79.899 OTHER MCC (CURRENT) DRUG THERAPY 11/11/2017 KIKI ROWE MD Ot Z87.891 PERSONAL HISTORY OF NICOTINE DEPENDENCE 11/15/2017 KIKI ROWE MD Ot 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, I 11/15/2017 KIKI ROWE MD Ot 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 11/15/2017 KIKI ROWE MD Ot I10 ESSENTIAL (PRIMARY) HYPERTENSION 11/15/2017 KIKI ROWE MD Ot I25.10 ATHSCL HEART DISEASE OF [place] CORONARY 11/15/2017 KIKI ROWE MD Ot Z79.82 MCC (CURRENT) USE OF ASPIRIN 11/15/2017 KIKI ROWE MD Ot Z79.899 OTHER COMPLIANCE MGR (CURRENT) DRUG THERAPY 11/15/2017 KIKI ROWE MD [...] MD Ot I25.10 ATHSCL HEART DISEASE OF [place] CORONARY 11/22/2017 KIKI ROWE MD Ot Z79.82 COMPLIANCE MGR (CURRENT) USE OF ASPIRIN 11/22/2017 KIKI ROWE MD Ot Z79.899 OTHER COMPLIANCE MGR (CURRENT) DRUG THERAPY 11/22/2017 KIKI ROWE MD, [...] MD Ot I25.10 ATHSCL HEART DISEASE OF [place] CORONARY 11/23/2017 AURE JONES MD Ot I49.5 SICK SINUS SYNDROME 11/23/2017 AURE JONES MD Ot M19.91 PRIMARY OSTEOARTHRITIS, UNSPECIFIED SITE 11/23/2017 AURE JONES MD Ot Z79.82 MCC (CURRENT) USE OF ASPIRIN 11/23/2017 AURE JONES MD Ot Z79.899 OTHER COMPLIANCE MGR (CURRENT) DRUG THERAPY 11/23/2017 AURE JONES MD [...] MD Ot I25.10 ATHSCL HEART DISEASE OF [place] CORONARY 12/12/2017 AURE JONES MD Ot I49.5 SICK SINUS SYNDROME 12/12/2017 AURE JONES MD Ot M19.91 PRIMARY OSTEOARTHRITIS, UNSPECIFIED SITE 12/12/2017 AURE JONES MD Ot Z79.82 MCC (CURRENT) USE OF ASPIRIN 12/12/2017 AURE JONES MD Ot Z79.899 OTHER MCC (CURRENT) DRUG THERAPY 12/12/2017 AURE JONES MD Ot Z87.891 PERSONAL HISTORY OF NICOTINE DEPENDENCE 12/21/2017 KIKI ROWE MD Ot 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, I 12/21/2017 KIKI ROWE MD Ot 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 12/21/2017 KIKI ROWE MD Ot I10 ESSENTIAL (PRIMARY) HYPERTENSION 12/21/2017 KIKI ROWE MD Ot I25.10 ATHSCL HEART DISEASE OF [place] CORONARY 12/21/2017 KIKI ROWE MD Ot Z79.82 COMPLIANCE MGR (CURRENT) USE OF ASPIRIN 12/21/2017 KIKI ROWE MD Ot Z79.899 OTHER MCC (CURRENT) DRUG THERAPY 12/21/2017 KIKI ROWE MD Ot Z87.891 PERSONAL HISTORY OF NICOTINE DEPENDENCE 12/23/2017 AURE JONES MD Ot 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, I 12/23/2017 AURE JONES MD Ot 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 GAMMOPATHY 12/23/2017 AURE JONES MD Ot I10 ESSENTIAL (PRIMARY) HYPERTENSION 12/23/2017 AURE JONES MD Ot I25.10 ATHSCL HEART DISEASE OF [place] CORONARY 12/23/2017 AURE JONES MD Ot I49.5 SICK SINUS SYNDROME 12/23/2017 AURE JONES MD Ot M19.91 PRIMARY OSTEOARTHRITIS, UNSPECIFIED SITE 12/23/2017 AURE JONES MD Ot Z79.82 COMPLIANCE MGR (CURRENT) USE OF ASPIRIN 12/23/2017 AURE JONES MD Ot Z79.899 OTHER MCC (CURRENT) DRUG THERAPY 12/23/2017 AURE JONES MD Ot Z87.891 PERSONAL HISTORY OF NICOTINE DEPENDENCE 01/05/2018 AURE JONES MD Ot 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, I 01/05/2018 AURE JONES MD Ot 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 GAMMOPATHY 01/05/2018 AURE JONES MD Ot I10 ESSENTIAL (PRIMARY) HYPERTENSION 01/05/2018 AURE JONES MD Ot I25.10 ATHSCL HEART DISEASE OF [place] CORONARY 01/05/2018 AURE JONES MD Ot I49.5 SICK SINUS SYNDROME 01/05/2018 AURE JONES MD Ot M19.91 PRIMARY OSTEOARTHRITIS, UNSPECIFIED SITE 01/05/2018 AURE JONES MD Ot Z79.82 COMPLIANCE MGR (CURRENT) USE OF ASPIRIN 01/05/2018 AURE JONES MD Ot Z79.899 OTHER COMPLIANCE MGR (CURRENT) DRUG THERAPY 01/05/2018 AURE JONES MD Ot Z87.891 PERSONAL HISTORY OF NICOTINE DEPENDENCE 01/05/2018 AURE JONES MD Ot 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, I 01/05/2018 AURE JONES MD Ot 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 GAMMOPATHY 01/05/2018 AURE JONES MD Ot I10 ESSENTIAL (PRIMARY) HYPERTENSION 01/05/2018 AURE JONES MD Ot I25.10 ATHSCL HEART DISEASE OF [place] CORONARY 01/05/2018 AURE JONES MD Ot I49.5 SICK SINUS SYNDROME 01/05/2018 AURE JONES MD Ot M19.91 PRIMARY OSTEOARTHRITIS, UNSPECIFIED SITE 01/05/2018 AURE JONES MD Ot Z79.82 COMPLIANCE MGR (CURRENT) USE OF ASPIRIN 01/05/2018 AURE JONES MD Ot Z79.899 OTHER MCC (CURRENT) DRUG THERAPY 01/05/2018 AURE JONES MD Ot Z87.891 PERSONAL HISTORY OF NICOTINE DEPENDENCE 01/19/2018 AURE JONES MD Ot 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, I 01/19/2018 AURE JONES MD Ot 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 GAMMOPATHY 01/19/2018 AURE JONES MD Ot I10 ESSENTIAL (PRIMARY) HYPERTENSION 01/19/2018 AURE JONES MD Ot I25.10 ATHSCL HEART DISEASE OF [place] CORONARY 01/19/2018 AURE JONES MD Ot I49.5 SICK SINUS SYNDROME 01/19/2018 AURE JONES MD Ot M19.91 PRIMARY OSTEOARTHRITIS, UNSPECIFIED SITE 01/19/2018 AURE JONES MD Ot Z79.82 MCC (CURRENT) USE OF ASPIRIN 01/19/2018 AURE JONES MD Ot Z79.899 OTHER MCC (CURRENT) DRUG THERAPY 01/19/2018 AURE JONES MD Ot Z87.891 PERSONAL HISTORY OF NICOTINE DEPENDENCE 02/05/2018 AURE JONES MD Ot 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, I 02/05/2018 AURE JONES MD Ot 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 GAMMOPATHY 02/05/2018 AURE JONES MD Ot I10 ESSENTIAL (PRIMARY) HYPERTENSION 02/05/2018 JACE JONES MDNER Ot I25.10 ATHSCL HEART DISEASE OF [place] CORONARY 02/05/2018 AURE JONES MD Ot I49.5 SICK SINUS SYNDROME 02/05/2018 AURE JONES MD Ot M19.91 PRIMARY OSTEOARTHRITIS, UNSPECIFIED SITE 02/05/2018 AURE JONES MD Ot Z51.11 ENCOUNTER FOR ANTINEOPLASTIC CHEMOTHERAP 02/05/2018 AURE JONES MD Ot Z79.82 COMPLIANCE MGR (CURRENT) USE OF ASPIRIN 02/05/2018 AURE JONES MD Ot Z79.899 OTHER COMPLIANCE MGR (CURRENT) DRUG THERAPY 02/05/2018 AURE JONES MD Ot Z87.891 PERSONAL HISTORY OF NICOTINE DEPENDENCE 02/17/2018 AURE JONES MD Ot 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, I 02/17/2018 AURE JONES MD Ot 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 GAMMOPATHY 02/17/2018 AURE JONES MD Ot I10 ESSENTIAL (PRIMARY) HYPERTENSION 02/17/2018 AURE JONES MD Ot I25.10 ATHSCL HEART DISEASE OF [place] CORONARY 02/17/2018 AURE JONES MD Ot I49.5 SICK SINUS SYNDROME 02/17/2018 AURE JONES MD Ot M19.91 PRIMARY OSTEOARTHRITIS, UNSPECIFIED SITE 02/17/2018 AURE JONES MD Ot Z79.82 COMPLIANCE MGR (CURRENT) USE OF ASPIRIN 02/17/2018 AURE JONES MD Ot Z79.899 OTHER COMPLIANCE MGR (CURRENT) DRUG THERAPY 02/17/2018 AURE JONES MD Ot Z87.891 PERSONAL HISTORY OF NICOTINE DEPENDENCE 03/02/2018 AURE JONES MD Ot 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, I 03/02/2018 AURE JONES MD Ot 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 GAMMOPATHY 03/02/2018 AURE JONES MD Ot I10 ESSENTIAL (PRIMARY) HYPERTENSION 03/02/2018 AURE JONES MD Ot I25.10 ATHSCL HEART DISEASE OF [place] CORONARY 03/02/2018 AURE JONES MD Ot I49.5 SICK SINUS SYNDROME 03/02/2018 AURE JONES MD Ot M19.91 PRIMARY OSTEOARTHRITIS, UNSPECIFIED SITE 03/02/2018 AURE JONES MD Ot Z51.11 ENCOUNTER FOR ANTINEOPLASTIC CHEMOTHERAP 03/02/2018 AURE JONES MD Ot Z79.82 MCC (CURRENT) USE OF ASPIRIN 03/02/2018 AURE JONES MD Ot Z79.899 OTHER COMPLIANCE MGR (CURRENT) DRUG THERAPY 03/02/2018 AURE JONES MD [...] 03/20/2018 MARCI SHARP MD Ot Z79.899 OTHER M[facility] (CURRENT) DRUG THERAPY 03/20/2018 MARCI SHARP MD [...] 03/23/2018 MARCI SHARP MD Ot Z79.899 OTHER COMPLIANCE MGR (CURRENT) DRUG THERAPY 03/23/2018 MARCI SHARP MD [...] 03/23/2018 MARCI SHARP MD, Ot Z79.899 OTHER COMPLIANCE MGR (CURRENT) DRUG THERAPY 03/23/2018 MARCI SHARP MD [...] MD Ot I25.10 ATHSCL HEART DISEASE OF [place] CORONARY 03/28/2018 AURE JONES MD Ot I49.5 SICK SINUS SYNDROME 03/28/2018 AURE JONES MD Ot M19.91 PRIMARY OSTEOARTHRITIS, UNSPECIFIED SITE 03/28/2018 AURE JONES MD Ot Z51.11 ENCOUNTER FOR ANTINEOPLASTIC CHEMOTHERAP 03/28/2018 AURE JONES MD Ot Z79.82 COMPLIANCE MGR (CURRENT) USE OF ASPIRIN 03/28/2018 AURE JONES MD Ot Z79.899 OTHER MCC (CURRENT) DRUG THERAPY 03/28/2018 AURE JONES MD Ot Z87.891 PERSONAL HISTORY OF NICOTINE DEPENDENCE 04/05/2018 DANNA LAWS MD Ot 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 04/05/2018 DANNA LAWS MD Ot D64.9 ANEMIA, UNSPECIFIED 04/05/2018 DANNA LAWS MD Ot I10 ESSENTIAL (PRIMARY) HYPERTENSION 04/05/2018 DANNA LAWS MD Ot I25.10 ATHSCL HEART DISEASE OF [place] CORONARY 04/05/2018 DANNA LAWS MD Ot I49.5 SICK SINUS SYNDROME 04/05/2018 DANNA LAWS MD Ot 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[place] 04/05/2018 DANNA LAWS MD Ot I77.6 ARTERITIS, UNSPECIFIED 04/05/2018 [...] MD, Ot I25.10 ATHSCL HEART DISEASE OF [place] CORONARY 04/06/2018 AURE JONES MD Ot I49.5 SICK SINUS SYNDROME 04/06/2018 AURE JONES MD Ot M19.91 PRIMARY OSTEOARTHRITIS, UNSPECIFIED SITE 04/06/2018 AURE JONES MD Ot Z51.11 ENCOUNTER FOR ANTINEOPLASTIC CHEMOTHERAP 04/06/2018 AURE JONES MD Ot Z79.82 MCC (CURRENT) USE OF ASPIRIN 04/06/2018 AURE JONES MD Ot Z79.899 OTHER COMPLIANCE MGR (CURRENT) DRUG THERAPY 04/06/2018 AURE JONES MD, [...] MD, Ot I25.10 ATHSCL HEART DISEASE OF [place] CORONARY 05/19/2018 AJ CUBA MD Ot I49.5 SICK SINUS SYNDROME 05/19/2018 AJ CUBA MD, Ot M19.91 PRIMARY OSTEOARTHRITIS, UNSPECIFIED SITE 05/19/2018 AJ CUBA MD, Ot Z79.82 MCC (CURRENT) USE OF ASPIRIN 05/19/2018 AJ CUBA MD, Ot Z79.899 OTHER COMPLIANCE MGR (CURRENT) DRUG THERAPY 05/19/2018 AJ CUBA MD, [...] Ot Z98.890 OTHER SPECIFIED POSTPROCEDURAL STATES 05/19/2018 REJI CHONG APRN Ot I10 ESSENTIAL (PRIMARY) HYPERTENSION 05/19/2018 REJI CHONG APRN Ot R53.1 WEAKNESS 05/19/2018 REJI CHONG APRN Ot Z79.82 COMPLIANCE MGR (CURRENT) USE OF ASPIRIN 05/19/2018 REJI CHONG APRN Ot Z85.46 PERSONAL HISTORY OF MALIGNANT NEOPLASM O 05/19/2018 REJI CHONG APRN Ot Z85.51 PERSONAL HISTORY OF MALIGNANT NEOPLASM O 05/19/2018 REJI CHONG APRN Ot Z85.820 PERSONAL HISTORY OF MALIGNANT MELANOMA O 05/19/2018 REJI CHONG APRN Ot Z87.19 PERSONAL HISTORY OF OTHER DISEASES OF TH 05/19/2018 REJI CHONG APRN Ot Z87.891 PERSONAL HISTORY OF NICOTINE DEPENDENCE 05/19/2018 REJI CHONG APRN Ot 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 ORGAN( 05/19/2018 REJI CHONG APRN Ot Z92.21 PERSONAL HISTORY OF ANTINEOPLASTIC CHEMO 05/19/2018 REJI CHONG APRN Ot Z98.1 ARTHRODESIS STATUS 05/19/2018 REJI CHONG APRN Ot Z98.890 OTHER SPECIFIED POSTPROCEDURAL STATES 05/22/2018 REJI CHONG APRN Ot I10 ESSENTIAL (PRIMARY) HYPERTENSION 05/22/2018 REJI CHONG APRN Ot R53.1 WEAKNESS 05/22/2018 REJI CHONG APRN Ot Z79.82 MCC (CURRENT) USE OF ASPIRIN 05/22/2018 REJI CHONG APRN Ot Z85.46 PERSONAL HISTORY OF MALIGNANT NEOPLASM O 05/22/2018 REJI CHONG APRN Ot Z85.51 PERSONAL HISTORY OF MALIGNANT NEOPLASM O 05/22/2018 REJI CHONG APRN Ot Z85.820 PERSONAL HISTORY OF MALIGNANT MELANOMA O 05/22/2018 REJI CHONG APRN Ot Z87.19 PERSONAL HISTORY OF OTHER DISEASES OF TH 05/22/2018 REJI CHONG APRN Ot Z87.891 PERSONAL HISTORY OF NICOTINE DEPENDENCE 05/22/2018 REJI CHONG APRN Ot 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 ORGAN( 05/22/2018 REJI CHONG APRN Ot Z92.21 PERSONAL HISTORY OF ANTINEOPLASTIC CHEMO 05/22/2018 REJI CHONG APRN Ot Z98.1 ARTHRODESIS STATUS 05/22/2018 REJI CHONG APRN Ot Z98.890 OTHER SPECIFIED POSTPROCEDURAL STATES 05/23/2018 AJ CUBA MD, Ot 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 MELANOMA OF SKIN, UNSPECIFIED 05/23/2018 AJ CUBA MD, Ot J90 PLEURAL EFFUSION, NOT ELSEWHERE CLASSIFI 05/24/2018 LASHONDA LUTHER MACHINE PRECISION ENGRAVER Ot R10.31 RIGHT LOWER QUADRANT PAIN 05/24/2018 LASHONDA LUTHER MACHINE PRECISION ENGRAVER Ot Z98.890 OTHER SPECIFIED POSTPROCEDURAL STATES 05/29/2018 AJ CUBA MD, Ot 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, I 05/29/2018 AJ CUBA MD, Ot 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 GAMMOPATHY 05/29/2018 AJ CUBA MD, Ot I10 ESSENTIAL (PRIMARY) HYPERTENSION 05/29/2018 AJ CUBA MD Ot I25.10 ATHSCL HEART DISEASE OF [place] CORONARY 05/29/2018 AJ CUBA MD Ot I49.5 SICK SINUS SYNDROME 05/29/2018 AJ CUBA MD Ot M19.91 PRIMARY OSTEOARTHRITIS, UNSPECIFIED SITE 05/29/2018 AJ CUBA MD Ot Z79.82 MCC (CURRENT) USE OF ASPIRIN 05/29/2018 AJ CUBA MD, Ot Z79.899 OTHER COMPLIANCE MGR (CURRENT) DRUG THERAPY 05/29/2018 AJ CUBA MD, Ot Z87.891 PERSONAL HISTORY OF NICOTINE DEPENDENCE 05/31/2018 AJ CUBA MD, Ot 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, I 05/31/2018 AJ CUBA MD, Ot 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 GAMMOPATHY 05/31/2018 AJ CUBA MD Ot I10 ESSENTIAL (PRIMARY) HYPERTENSION 05/31/2018 AJ CUBA MD Ot I25.10 ATHSCL HEART DISEASE OF [place] CORONARY 05/31/2018 AJ CUBA MD Ot I49.5 SICK SINUS SYNDROME 05/31/2018 AJ CUBA MD Ot M19.91 PRIMARY OSTEOARTHRITIS, UNSPECIFIED SITE 05/31/2018 AJ CUBA MD Ot Z79.82 COMPLIANCE MGR (CURRENT) USE OF ASPIRIN 05/31/2018 AJ CUBA MD Ot Z79.899 OTHER COMPLIANCE MGR (CURRENT) DRUG THERAPY 05/31/2018 AJ CUBA MD Ot Z87.891 PERSONAL HISTORY OF NICOTINE DEPENDENCE 05/31/2018 AJ CUBA MD, Ot 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, I 05/31/2018 AJ CUBA MD Ot 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 GAMMOPATHY 05/31/2018 AJ CUBA MD Ot I10 ESSENTIAL (PRIMARY) HYPERTENSION 05/31/2018 AJ CUBA MD Ot I25.10 ATHSCL HEART DISEASE OF [place] CORONARY 05/31/2018 AJ CUBA MD Ot I49.5 SICK SINUS SYNDROME 05/31/2018 AJ CUBA MD Ot M19.91 PRIMARY OSTEOARTHRITIS, UNSPECIFIED SITE 05/31/2018 AJ CUBA MD Ot Z79.82 COMPLIANCE MGR (CURRENT) USE OF ASPIRIN 05/31/2018 AJ CUBA MD Ot Z79.899 OTHER COMPLIANCE MGR (CURRENT) DRUG THERAPY 05/31/2018 AJ CUBA MD Ot Z87.891 PERSONAL HISTORY OF NICOTINE DEPENDENCE 06/09/2018 LASHONDA LUTHER APRN Ot R10.31 RIGHT LOWER QUADRANT PAIN 06/09/2018 LASHONDA LUTHER MACHINE PRECISION ENGRAVER Ot Z98.890 OTHER SPECIFIED POSTPROCEDURAL STATES 06/13/2018 DANNA LAWS MD Ot 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, I 06/13/2018 DANNA LAWS MD Ot G62.9 POLYNEUROPATHY, UNSPECIFIED 06/13/2018 DANNA LAWS MD E Ot I10 ESSENTIAL (PRIMARY) HYPERTENSION 06/13/2018 DANNA LAWS MD E Ot I25.10 ATHSCL HEART DISEASE OF [place] CORONARY 06/13/2018 DANNA LAWS MD Ot I25.41 CORONARY ARTERY ANEURYSM 06/13/2018 DANNA LAWS MD Ot I49.5 SICK SINUS SYNDROME 06/13/2018 DANNA LAWS MD Ot 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 06/13/2018 DANNA LAWS MD Ot I95.2 HYPOTENSION DUE TO DRUGS 06/13/2018 DANNA LAWS MD Ot K59.09 OTHER CONSTIPATION 06/13/2018 DANNA LAWS MD Ot M19.90 UNSPECIFIED OSTEOARTHRITIS, UNSPECIFIED 06/13/2018 DANNA LAWS MD Ot 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 RADICULOPA 06/13/2018 DANNA LAWS MD Ot R21 RASH AND OTHER NONSPECIFIC SKIN ERUPTION 06/13/2018 DANNA LAWS MD Ot R29.6 REPEATED FALLS 06/13/2018 DANNA LAWS MD Ot R53.1 WEAKNESS 06/13/2018 DANNA LAWS MD Ot R60.0 LOCALIZED EDEMA 06/13/2018 DANNA LAWS MD Ot Z85.46 PERSONAL HISTORY OF MALIGNANT NEOPLASM O 06/13/2018 DANNA LAWS MD Ot Z87.891 PERSONAL HISTORY OF NICOTINE DEPENDENCE 06/15/2018 AJ CUBA MD Ot 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 MELANOMA OF SKIN, UNSPECIFIED 06/15/2018 AJ CUBA MD Ot J90 PLEURAL EFFUSION, NOT ELSEWHERE CLASSIFI 06/16/2018 LASHONDA LUTHER APRN Ot R10.31 RIGHT LOWER QUADRANT PAIN 06/16/2018 LASHONDA LUTHER APRN Ot Z98.890 OTHER SPECIFIED [...] INFLUENZA A AND B ANTIGENS BY IA NR Complete urinalysis with reflex to culture - 06/10/16 07:07 Urine color determination YELLOW NR Urine clarity determination CLEAR NR Urine pH measurement by test strip 6.5 [...] indirect bilirubin measurement (mass/volume) 0.5 mg/ dL [facility] Lipid 1996 panel - 05/04/17 11:24 [...] rickettsii IgG antibody assay (units/volume) < <1:16 [place] spotted fever panel < <1:10 Francisella tularensis [...] blood basophil count (count/volume) 0.1 10*3/uL 0.0-0.1 Complete blood count (CBC) with automated white blood cell (WBC) differential - 05/19/18 15:40 Blood leukocytes automated count (number/volume) 5.6 10*3/uL 4.3-11.0 Blood erythrocytes automated count (number/volume) 3.59 10*6/uL 4.35-5.85 Venous blood hemoglobin measurement (mass/volume) 10.2 g/dL 13.3-17.7 Blood hematocrit (volume fraction) 31 % 40-54 Automated erythrocyte mean corpuscular volume 86 [foz_us] 80-99 Automated erythrocyte mean corpuscular hemoglobin (mass per erythrocyte) 28 pg 25-34 Automated erythrocyte mean corpuscular hemoglobin concentration measurement ( mass/volume) 33 g/dL 32-36 Automated erythrocyte distribution width ratio 13.9 % 10.0-14.5 Automated blood platelet count (count/volume) 278 10*3/uL 130-400 Automated blood platelet mean volume measurement 9.5 [foz_us] 7.4-10.4 Automated blood neutrophils/100 leukocytes 42 % 42-75 Automated blood lymphocytes/100 leukocytes 29 % 12-44 Blood monocytes/100 leukocytes 8 % 0-12 Automated blood eosinophils/100 leukocytes 20 % 0-10 Automated blood basophils/100 leukocytes 1 % 0-10 Blood neutrophils automated count (number/volume) 2.4 10*3 1.8-7.8 Blood lymphocytes automated count (number/volume) 1.6 10*3 1.0-4.0 Blood monocytes automated count (number/volume) 0.5 10*3 0.0-1.0 Automated eosinophil count 1.1 10*3/uL 0.0-0.3 Automated blood basophil count (count/volume) 0.1 10*3/uL 0.0-0.1 Comprehensive metabolic panel - 05/19/18 15:40 Serum or plasma sodium measurement (moles/volume) 137 mmol/L 135-145 Serum or plasma potassium measurement (moles/volume) 3.4 mmol/L 3.6-5.0 Serum or plasma chloride measurement (moles/volume) 104 mmol/L 98-107 Carbon dioxide 25 mmol/L 21-32 Serum or plasma anion gap determination (moles/volume) 8 mmol/L 5-14 Serum or plasma urea nitrogen measurement (mass/volume) 13 mg/dL 7-18 Serum or plasma creatinine measurement (mass/volume) 0.62 mg/dL 0.60-1.30 Serum or plasma urea nitrogen/creatinine mass ratio 21 NRG Serum or plasma creatinine measurement with calculation of estimated glomerular filtration rate > NRG Serum or plasma glucose measurement (mass/volume) 81 mg/dL 70-105 Serum or plasma calcium measurement (mass/volume) 9.3 mg/dL 8.5-10.1 Serum or plasma total bilirubin measurement (mass/volume) 0.8 mg/dL 0.1-1.0 Serum or plasma alkaline phosphatase measurement (enzymatic activity/volume) 51 U/L 40-136 Serum or plasma aspartate aminotransferase measurement (enzymatic activity/ volume) 28 U/L 5-34 Serum or plasma alanine aminotransferase measurement (enzymatic activity/volume ) 16 U/L 0-55 Serum or plasma protein measurement (mass/volume) 6.1 g/dL 6.4-8.2 Serum or plasma albumin measurement (mass/volume) 3.4 g/dL 3.2-4.5 CALCIUM CORRECTED 9.8 mg/dL 8.5-10.1 Blood manual differential performed detection - 05/19/18 15:40 Blood monocytes/100 leukocytes 3 % NRG Manual blood segmented neutrophils/100 leukocytes 46 % NRG Blood band neutrophils/100 leukocytes 0 % NRG Manual blood lymphocytes/100 leukocytes 33 % NRG Manual eosinophils/100 leukocytes in nose 18 % NRG Manual blood basophils/100 leukocytes 0 % NRG Blood erythrocyte morphology finding identification NORMAL NRG Serum or plasma troponin i.cardiac measurement (mass/volume) - 05/19/18 15:40 Serum or plasma troponin i.cardiac measurement (mass/volume) < ng/ mL <0.30 Serum or plasma lithium measurement (moles/volume) - 05/19/18 15:40 BNP level 149.5 pg/mL <100.0 Complete urinalysis with reflex to culture - 05/19/18 16:30 Urine color determination YELLOW NRG Urine clarity determination CLEAR NRG Urine pH measurement by test strip 5 5-9 Specific gravity of urine by test strip 1.020 1.016- 1.022 Urine protein assay by test strip, semi-quantitative NEGATIVE NEGATIVE Urine glucose detection by automated test strip NEGATIVE NEGATIVE Erythrocytes detection in urine sediment by light microscopy NEGATIVE NEGATIVE Urine ketones detection by automated test strip 1+ NEGATIVE Urine nitrite detection by test strip [...] urine sediment by light microscopy NEGATIVE NRG Crystals detection in urine sediment by light microscopy NONE NRG Casts detection in urine sediment by light microscopy NONE NRG Mucus detection in urine sediment by light microscopy SMALL NRG Complete urinalysis with reflex to culture NO NRG Complete blood count (CBC) with automated white blood cell (WBC) differential - 06/02/18 11:50 Blood leukocytes automated count (number/volume) 6.1 10*3/uL 4.3-11.0 Blood erythrocytes automated count (number/volume) 3.97 10*6/uL 4.35-5.85 Venous blood hemoglobin measurement (mass/volume) 11.1 g/dL 13.3-17.7 Blood hematocrit (volume fraction) 34 % 40-54 Automated erythrocyte mean corpuscular volume 86 [foz_us] 80-99 Automated erythrocyte mean corpuscular hemoglobin (mass per erythrocyte) 28 pg 25-34 Automated erythrocyte mean corpuscular hemoglobin concentration measurement ( mass/volume) 33 g/dL 32-36 Automated erythrocyte distribution width ratio 14.4 % 10.0-14.5 Automated blood platelet count (count/volume) 310 10*3/uL 130-400 Automated blood platelet mean volume measurement 9.5 [foz_us] 7.4-10.4 Automated blood neutrophils/100 leukocytes 32 % 42-75 Automated blood lymphocytes/100 leukocytes 33 % 12-44 Blood monocytes/100 leukocytes 7 % 0-12 Automated blood eosinophils/100 leukocytes 27 % 0-10 Automated blood basophils/100 leukocytes 1 % 0-10 Blood neutrophils automated count (number/volume) 2.0 10*3 1.8-7.8 Blood lymphocytes automated count (number/volume) 2.0 10*3 1.0-4.0 Blood monocytes automated count (number/volume) 0.4 10*3 0.0-1.0 Automated eosinophil count 1.7 10*3/uL 0.0-0.3 Automated blood basophil count (count/volume) 0.1 10*3/uL 0.0-0.1 Comprehensive metabolic panel - 06/02/18 11:50 Serum or plasma sodium measurement (moles/volume) 138 mmol/L 135-145 Serum or plasma potassium measurement (moles/volume) 3.7 mmol/L 3.6-5.0 Serum or plasma chloride measurement (moles/volume) 104 mmol/L 98-107 Carbon dioxide 23 mmol/L 21-32 Serum or plasma anion gap determination (moles/volume) 11 mmol/L 5-14 Serum or plasma urea nitrogen measurement (mass/volume) 16 mg/dL 7-18 Serum or plasma creatinine measurement (mass/volume) 0.72 mg/dL 0.60-1.30 Serum or plasma urea nitrogen/creatinine mass ratio 22 NRG Serum or plasma creatinine measurement with calculation of estimated glomerular filtration rate > NRG Serum or plasma glucose measurement (mass/volume) 97 mg/dL 70-105 Serum or plasma calcium measurement (mass/volume) 9.8 mg/dL 8.5-10.1 Serum or plasma total bilirubin measurement (mass/volume) 0.8 mg/dL 0.1-1.0 Serum or plasma alkaline phosphatase measurement (enzymatic activity/volume) 56 U/L 40-136 Serum or plasma aspartate aminotransferase measurement (enzymatic activity/ volume) 33 U/L 5-34 Serum or plasma alanine aminotransferase measurement (enzymatic activity/volume ) 17 U/L 0-55 Serum or plasma protein measurement (mass/volume) 6.9 g/dL 6.4-8.2 Serum or plasma albumin measurement (mass/volume) 3.8 g/dL 3.2-4.5 CALCIUM CORRECTED 10.0 mg/dL 8.5-10.1 THYROID STIMULATING HORMONE - 06/02/18 11:50 THYROID STIMULATING HORMONE 6.94 u[iU]/mL 0.35-4.94 Complete blood count (CBC) with automated white blood cell (WBC) differential - 06/12/18 17:00 Blood leukocytes automated count (number/volume) 6.5 10*3/uL 4.3-11.0 Blood erythrocytes automated count (number/volume) 3.78 10*6/uL 4.35-5.85 Venous blood hemoglobin measurement (mass/volume) 10.5 g/dL 13.3-17.7 Blood hematocrit (volume fraction) 32 % 40-54 Automated erythrocyte mean corpuscular volume 86 [foz_us] 80-99 Automated erythrocyte mean corpuscular hemoglobin (mass per erythrocyte) 28 pg 25-34 Automated erythrocyte mean corpuscular hemoglobin concentration measurement ( mass/volume) 32 g/dL 32-36 Automated erythrocyte distribution width ratio 14.6 % 10.0-14.5 Automated blood platelet count (count/volume) 296 10*3/uL 130-400 Automated blood platelet mean volume measurement 9.5 [foz_us] 7.4-10.4 Automated blood neutrophils/100 leukocytes 22 % 42-75 Automated blood lymphocytes/100 leukocytes 32 % 12-44 Blood monocytes/100 leukocytes 7 % 0-12 Automated blood eosinophils/100 leukocytes 38 % 0-10 Automated blood basophils/100 leukocytes 1 % 0-10 Blood neutrophils automated count (number/volume) 1.4 10*3 1.8-7.8 Blood lymphocytes automated count (number/volume) 2.1 10*3 1.0-4.0 Blood monocytes automated count (number/volume) 0.4 10*3 0.0-1.0 Automated eosinophil count 2.5 10*3/uL 0.0-0.3 Automated blood basophil count (count/volume) 0.1 10*3/uL 0.0-0.1 Comprehensive metabolic panel - 06/12/18 17:00 Serum or plasma sodium measurement (moles/volume) 141 mmol/L 135-145 Serum or plasma potassium measurement (moles/volume) 3.7 mmol/L 3.6-5.0 Serum or plasma chloride measurement (moles/volume) 105 mmol/L 98-107 Carbon dioxide 27 mmol/L 21-32 Serum or plasma anion gap determination (moles/volume) 9 mmol/L 5-14 Serum or plasma urea nitrogen measurement (mass/volume) 18 mg/dL 7-18 Serum or plasma creatinine measurement (mass/volume) 0.78 mg/dL 0.60-1.30 Serum or plasma urea nitrogen/creatinine mass ratio 23 NRG Serum or plasma creatinine measurement with calculation of estimated glomerular filtration rate > NRG Serum or plasma glucose measurement (mass/volume) 90 mg/dL 70-105 Serum or plasma calcium measurement (mass/volume) 9.5 mg/dL 8.5-10.1 Serum or plasma total bilirubin measurement (mass/volume) 0.5 mg/dL 0.1-1.0 Serum or plasma alkaline phosphatase measurement (enzymatic activity/volume) 57 U/L 40-136 Serum or plasma aspartate aminotransferase measurement (enzymatic activity/ volume) 41 U/L 5-34 Serum or plasma alanine aminotransferase measurement (enzymatic activity/volume ) 24 U/L 0-55 Serum or plasma protein measurement (mass/volume) 6.5 g/dL 6.4-8.2 Serum or plasma albumin measurement (mass/volume) 3.6 g/dL 3.2-4.5 CALCIUM CORRECTED 9.8 mg/dL 8.5-10.1 Blood manual differential performed detection - 06/12/18 17:00 Blood monocytes/100 leukocytes 7 % NRG Manual blood segmented neutrophils/100 leukocytes 26 % NRG Blood band neutrophils/100 leukocytes 0 % NRG Manual blood lymphocytes/100 leukocytes 22 % NRG Manual eosinophils/100 leukocytes in nose 44 % NRG Manual blood basophils/100 leukocytes 1 % NRG Blood erythrocyte morphology finding identification NORMAL NRG Encounters ACCT No. Visit Date/Time Discharge Status Pt. Type Provider Facility Loc./Unit Complaint [id number] 06/14/2018 13:15:00 06/14/2018 23:59:59 CLS Outpatient AJ CUBA MD [facility] ONC [id number] 06/01/2018 09:45:00 06/13/2018 14:00:00 DIS Inpatient DANNA LAWS MD E [facility] IRF GENERAL DEBILITY [id number] 05/22/2018 09:27:00 05/22/2018 23:59:59 CLS Outpatient AJ CUBA MD [facility] RAD MARÍA MELANOMA LVL 4 [id number] 05/19/2018 14:13:00 05/19/2018 18:55:00 DIS Emergency REJI CHONG APRN [facility] ER WEAK [id number] 05/18/2018 14:26:00 05/18/2018 23:59:59 CLS Outpatient LASHONDA LUTHER APRN [facility] RAD PAIN R LOWER ABD TO GROIN,PREVIOUS HERNIA SURGERY [id number] 04/25/2018 09:21:00 04/25/2018 23:59:59 CLS Outpatient AJ CUBA MD [facility] RAD HISTORY OF PNEUMONIA [id number] 03/16/2018 12:40:00 04/06/2018 09:56:00 DIS Outpatient AURE JONES MD [facility] ONC [id number] 03/23/2018 10:15:00 04/05/2018 11:15:00 DIS Inpatient EUSEBIA JIMENEZ, DANNA Rodgers [facility] IRF DEBILITY, STENOSIS, RLE WEAKNESS [id number] 03/19/2018 00:10:00 03/23/2018 10:38:00 DIS Inpatient ARON JIMENEZ, MARCI An [facility] 4TH PNEUMONIA,HEMATURIA [id number] 01/19/2018 13:49:00 01/19/2018 23:59:59 CLS Outpatient AURE JONES MD [facility] ONC [id number] 11/11/2017 06:43:00 11/11/2017 13:15:00 DIS Outpatient KIKI ROWE MD [facility] CARD MELANOMA [id number] 11/09/2017 08:06:00 11/09/2017 23:59:59 CLS Outpatient SKYLA RUTH [facility] LAB I10 E78.2 [id number] 11/09/2017 05:39:00 11/09/2017 10:52:00 DIS Outpatient KIKI ROWE MD [facility] PREOP MELANOMA [id number] 11/02/2017 10:49:00 11/03/2017 16:50:00 DIS Outpatient AURE JONES MD [facility] ONC [id number] 10/31/2017 07:42:00 10/31/2017 23:59:59 CLS Outpatient AURE JONES MD [facility] RAD R93.2 ABN PET SCAN OF LIVER [id number] 10/29/2017 07:31:00 10/29/2017 23:59:59 CLS Outpatient AURE JONES MD [facility] RAD R93.2 ABN PET SCAN OF LIVER [id number] 10/28/2017 07:15:00 10/28/2017 23:59:59 CLS Outpatient AURE JONES MD [facility] RAD R93.2 ABN PET SCAN OF LIVER [id number] 10/24/2017 11:07:00 10/24/2017 16:57:00 DIS Outpatient KIKI ROWE MD [facility] ENDO PERSONAL HX MELANOMA /ABNORMAL PET SCAN/SCREENING [id number] 10/21/2017 09:45:00 10/21/2017 09:57:00 DIS Outpatient KIKI ROWE MD [facility] PREOP COLONOSCOPY [id number] 10/19/2017 11:50:00 10/19/2017 23:59:59 CLS Preadmit AURE JONES MD [facility] RAD R29.91 ABN LEG FINDING [id number] 10/18/2017 08:25:00 10/18/2017 23:59:59 CLS Outpatient KIKI ROWE MD [facility] RAD MELANOMA LT FOREARM METASTATIC LYMPH NODULES [id number] 10/07/2017 07:18:00 10/07/2017 15:37:00 DIS Outpatient KIKI ROWE MD [facility] SDC MELANOMA LEFT FOREARM [id number] 10/06/2017 07:47:00 10/06/2017 23:59:59 CLS Outpatient KIKI ROWE MD [facility] RAD NODED NODULE LT THYROID [id number] 10/05/2017 05:33:00 10/05/2017 12:49:00 DIS Outpatient KIKI ROWE MD [facility] PREOP MELANOMA LEFT FOREARM [id number] 09/30/2017 07:46:00 09/30/2017 23:59:59 CLS Outpatient AURE JONES MD [facility] RAD MELANOMA [id number] 05/04/2017 11:21:00 05/04/2017 19:28:00 DIS Outpatient TIERRA MARIN MD [facility] CATH ABN STRESS TEST, HTN [id number] 04/27/2017 06:53:00 04/27/2017 23:59:59 CLS Outpatient TIERRA MARIN MD [facility] CARD HYPERTENSIVE DISORDER I10 [id number] 11/24/2016 07:33:00 11/24/2016 23:59:59 CLS Outpatient TIERRA MARIN MD [facility] CARD I10 HYPERTENSIVE DISORDER [id number] 11/16/2016 07:22:00 11/16/2016 23:59:59 CLS Outpatient TIERRA MARIN MD [facility] RAD I10 HYPERTENSIVE DISORDER [id number] 06/10/2016 06:01:00 06/10/2016 08:55:00 DIS Emergency TERRY HENRY MD [facility] ER CP [id number] 10/01/2015 10:45:00 12/23/2015 00:01:00 DIS Outpatient KATELYNN SALAS MD [facility] ONC [id number] 11/10/2015 10:12:00 11/10/2015 23:59:59 CLS Outpatient FRANCISCO LUNA MD [facility] HH POSSIBLE UTI [id number] 10/21/2015 13:20:00 10/28/2015 12:38:00 DIS Inpatient DANNA LAWS MD [facility] IRF IRF [id number] 10/17/2015 22:34:00 10/21/2015 13:28:00 DIS Inpatient JYOTHI NEWELL MD [facility] 4TH RLL PNEUMONIA [id number] 10/16/2015 08:08:00 10/16/2015 14:30:00 DIS Outpatient JYOTHI NEWELL MD [facility] SDC RIGHT INGUINAL HERNIA [id number] 04/16/2015 10:38:00 07/08/2015 00:01:00 DIS Outpatient KATELYNN SALAS MD [facility] ONC [id number] 10/16/2014 10:44:00 10/22/2014 00:01:00 DIS Outpatient KATELYNN SALAS MD [facility] ONC [id number] 01/07/2014 12:54:00 03/24/2014 00:01:00 DIS Outpatient KATELYNN SALAS MD [facility] ONC [id number] 07/09/2013 13:25:00 09/30/2013 00:01:00 DIS Outpatient KATELYNN SALAS MD [facility] ONC [id number] 01/22/2013 13:57:00 04/10/2013 00:01:00 DIS Outpatient KATELYNN SALAS MD [facility] ONC [id number] 02/13/2013 16:16:00 02/13/2013 23:59:59 CLS Outpatient [id number] 05/10/2018 09:51:00 Document Registration [id number] 07/13/2012 11:35:00 Document Registration [id number] 03/14/2012 09:09:00 Document Registration [id number] 01/19/2012 09:59:00 Document Registration [id number] 01/12/2012 09:51:00 Document Registration [id number] 07/20/2011 13:00:00 Document Registration [id number] 07/20/2011 10:39:00 Document Registration [id number] 04/20/2011 12:55:00 Document Registration [id number] 04/06/2011 14:07:00 Document Registration [id number] 12/08/2010 12:28:00 Document Registration [id number] 12/07/2010 12:41:00 Document Registration [id number] 08/26/2010 08:33:00 Document Registration [id number] 12/16/2009 17:38:00 Document Registration [id number] 04/09/2015 10:56:12 ACT Document Registration
[2018-06-20] MEDS ORDERED: ACETAMINOPHEN 500 MG TAB (TYLENOL) PO ONE (03:45)
[2018-06-20 03:50] LABS: BASOPHILS % (AUTO) 1 % (0-10); EOSINOPHILS # (AUTO) 3.2 10^3/uL (0.0-0.3); EOSINOPHILS % (AUTO) 38 % (0-10); HEMATOCRIT 32 % (40-54); HEMOGLOBIN 10.5 G/DL (13.3-17.7); LYMPHOCYTES # (AUTO) 2.2 X 10^3 (1.0-4.0); LYMPHOCYTES % (AUTO) 25 % (12-44); MEAN CORPUSCULAR HEMOGLOBIN 28 PG (25-34); MEAN CORPUSCULAR HGB CONC 32 G/DL (32-36); MEAN CORPUSCULAR VOLUME 86 FL (80-99); MEAN PLATELET VOLUME 9.5 FL (7.4-10.4); MONOCYTES # (AUTO) 0.4 X 10^3 (0.0-1.0); MONOCYTES % (AUTO) 5 % (0-12); NEUTROPHILS # (AUTO) 2.7 X 10^3 (1.8-7.8); NEUTROPHILS % (AUTO) 32 % (42-75); PLATELET COUNT 308 10^3/uL (130-400); RED BLOOD COUNT 3.78 10^6/uL (4.35-5.85); RED CELL DISTRIBUTION WIDTH 14.7 % (10.0-14.5); WHITE BLOOD COUNT 8.5 10^3/uL (4.3-11.0)
[2018-06-20 03:59] LABS: INR 1.2 (0.8-1.4)
[2018-06-20 04:06] LABS: ALANINE AMINOTRANSFERASE 18 U/L (0-55); ALBUMIN 3.5 GM/DL (3.2-4.5); ALKALINE PHOSPHATASE 66 U/L (40-136); BILIRUBIN,TOTAL 0.6 MG/DL (0.1-1.0); BUN/CREATININE RATIO 25; CALCIUM 9.3 MG/DL (8.5-10.1); CARBON DIOXIDE 28 MMOL/L (21-32); CHLORIDE 106 MMOL/L (98-107); CREATININE SERUM 0.73 MG/DL (0.60-1.30); GFR ESTIMATED > 60; GLUCOSE 95 MG/DL (70-105); POTASSIUM 3.7 MMOL/L (3.6-5.0); SODIUM 144 MMOL/L (135-145); TOTAL PROTEIN 6.4 GM/DL (6.4-8.2)
[2018-06-20 05:06] LABS: BILIRUBIN,URINE NEGATIVE (NEGATIVE); CLARITY,URINE CLEAR; COLOR,URINE YELLOW; GLUCOSE, URINE (UA) NEGATIVE (NEGATIVE); KETONES,URINE NEGATIVE (NEGATIVE); LEUKOCYTE ESTERASE ,URINE 3+ (NEGATIVE); NITRITE,URINE POSITIVE (NEGATIVE); PH,URINE 9 (5-9); PROTEIN,URINE 2+ (NEGATIVE); UROBILINOGEN,URINE NORMAL (NORMAL)
[2018-06-20 05:20] LABS: BACTERIA,URINE LARGE /HPF
[2018-06-20] MEDS ORDERED: cefTRIAXone FOR IV USE 1,000 MG in NS (IVPB) 50 ML IV ONE (05:45)
[2018-06-20] MEDS ORDERED: ONDANSETRON 4 MG/2 ML (SDV) Z0FRAN IVP ONE (05:45)
--- NOTE | 2018-06-20 06:17 | ED General ---
General Chief Complaint: Trauma-Non Activation Stated Complaint: FALL Nursing Triage Note: Pt was found at via [facility] on the ground after checking on pt 10 minutes prior during room check and pt was in bed. Pt was found crawling on the ground. Pt is more confused than normal. Pt does not have any pain or have any injuries. Pt does have a fever. Nursing Sepsis Screen: No Definite Risk Source of Information: Patient Exam Limitations: No Limitations History of Present Illness Date Seen by Provider: Jun 20, 2018 Time Seen by Provider: 03:33 Initial Comments This 78-year-old gentleman [facility] rolling out of bed and being found to be more confused than usual. He reportedly was crawling on the floor when staff found him. He denies any pain or injury of any kind. He does seem somewhat disoriented. He has found to have a mildly elevated temperature of 100.1. Location Injury Occurred: Pt denies any injuries or pain Allergies and Home Medications Allergies Coded Allergies: No Known Drug Allergies (Unverified , 11/09/17) Home Medications Aspirin 81 Mg Tablet.dr, 81 MG PO DAILY, (Reported) Celecoxib 200 Mg Capsule, 200 MG PO DAILY, (Reported) Cephalexin 500 Mg Capsule, 500 MG PO TID Prescribed by: JERRY DAVILA on 06/20/18620 Cetirizine HCl 10 Mg Tablet, 10 MG PO DAILY, (Reported) Docusate Sodium 100 Mg Capsule, 100 MG PO DAILY, (Reported) Fish Oil/Dha/Epa 1 Each Capsule, 2,400 MG PO DAILY, (Reported) TAKES 2 (1200MG) CAPSULES Furosemide 40 Mg Tablet, 40 MG PO DAILY, (Reported) Levothyroxine Sodium 88 Mcg Tablet, 88 MCG PO DAILY@0630 Prescribed by: DANNA LAWS on 06/12/181853 Lisinopril 10 Mg Tablet, 10 MG PO DAILY Prescribed by: DANNA LAWS on 06/12/181853 Nebivolol HCl 5 Mg Tablet, 5 MG PO DAILY, (Reported) Ondansetron 4 Mg Tab.rapdis, 4 MG SL Q4H Prescribed by: JERRY DAVILA on 06/20/18620 Potassium Chloride 10 Meq Capsule.er, 10 MEQ PO DAILY, (Reported) Patient Home Medication List Home Medication List Reviewed: Yes Review of Systems Review of Systems Constitutional: see HPI EENTM: no symptoms reported Respiratory: no symptoms reported Cardiovascular: no symptoms reported Gastrointestinal: no symptoms reported Genitourinary: no symptoms reported Musculoskeletal: no symptoms reported Skin: no symptoms reported Psychiatric/Neurological: See HPI Hematologic/Lymphatic: No Symptoms Reported Past Qabalcj-Pqfrrb-Rzhkxg Hx Patient Social History Alcohol Use: Denies Use Recreational Drug Use: No Smoking Status: Never a Smoker Type Used: Cigarettes Former Smoker, Quit: May 04, 1977 2nd Hand Smoke Exposure: No Recent Foreign Travel: No Contact w/Someone Who Travel: No Recent Infectious Disease Expo: No Recent Hopitalizations: Yes (4TH MEDICAL) Physical Abuse: No Sexual Abuse: No Mistreated: No Fear: No Immunizations Up To Date Tetanus Booster (TDap): Unknown Date of Pneumonia Vaccine: Apr 19, 2016 Date of Influenza Vaccine: Mar 24, 2018 Seasonal Allergies Seasonal Allergies: Yes Past Medical History Surgeries: Yes (inguinal hernia, LAMINECTOMY, rotor cuff, SKIN LESION OFF ELBOW) Prostatectomy Respiratory: No Currently Using CPAP: No Currently Using BIPAP: No Cardiac: Yes Hypertension Neurological: Yes Dementia Reproductive Disorders: No Sexually Transmitted Disease: No HIV/AIDS: No Genitourinary: Yes Prostate Problems Gastrointestinal: Yes Chronic Constipation Musculoskeletal: Yes Degenerate Disk Disease, Arthritis Endocrine: Yes HEENT: Yes Cataract Loss of Vision: Denies Hearing Impairment: Denies Cancer: Yes Bladder, Prostate, Melanoma Did You Recieve Any Treatments: Yes What Type of Treatment Did You: Chemotherapy, Radiation, Surgical Intervention Psychosocial: No Integumentary: No Blood Disorders: No Adverse Reaction/Blood Tranf: No (N/A) Family Medical History No Pertinent Family Hx Physical Exam Vital Signs Vital Signs - First Documented Capillary Refill : Less Than 3 Seconds Height, Weight, BMI Height: 5'9.00" Weight: 176lbs. 4.0oz. 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 Norm as Tested, Other (Mild confusion) Skin: Normal Color, Warm/Dry Focused Exam Lactate Level 06/20/18 03:39: Lactic Acid Level 1.01 Lactic Acid Level Progress/Results/Core Measures Suspected Sepsis Recent Fever Within 48 Hours: Yes Infection Criteria Present: Suspected New Infection New/Unexplained Altered Menta: Yes Sepsis Screen: No Definite Risk SIRS Temperature:100.1 Pulse: 81 Respiratory Rate: 20 Laboratory Tests 06/20/18 03:39: White Blood Count 8.5 Blood Pressure 157 /86 Mean: 109 06/20/18 03:39: Lactic Acid Level 1.01 Laboratory Tests 06/20/18 03:39: Creatinine 0.73, INR Comment 1.2, Platelet Count 308, Total Bilirubin 0.6 Results/Orders Lab Results Laboratory Tests Test 06/20/18 03:39 06/20/18 04:57 Range/Units White Blood Count 8.5 4.3-11.0 10^3/uL Red Blood Count 3.78 L 4.35-5.85 10^6/uL Hemoglobin 10.5 L 13.3-17.7 G/DL Hematocrit 32 L 40-54 % Mean Corpuscular Volume 86 80-99 FL Mean Corpuscular Hemoglobin 28 25-34 PG Mean Corpuscular Hemoglobin Concent 32 32-36 G/DL Red Cell Distribution Width 14.7 H 10.0-14.5 % Platelet Count 308 130-400 10^3/uL Mean Platelet Volume 9.5 7.4-10.4 FL Neutrophils (%) (Auto) 32 L 42-75 % Lymphocytes (%) (Auto) 25 12-44 % Monocytes (%) (Auto) 5 0-12 % Eosinophils (%) (Auto) 38 H 0-10 % Basophils (%) (Auto) 1 0-10 % Neutrophils # (Auto) 2.7 1.8-7.8 X 10^3 Lymphocytes # (Auto) 2.2 1.0-4.0 X 10^3 Monocytes # (Auto) 0.4 0.0-1.0 X 10^3 Eosinophils # (Auto) 3.2 H 0.0-0.3 10^3/uL Basophils # (Auto) 0.0 0.0-0.1 10^3/uL Prothrombin Time 15.0 H 12.2-14.7 SEC INR Comment 1.2 0.8-1.4 Activated Partial Thromboplast Time 37 H 24-35 SEC Sodium Level 144 135-145 MMOL/L Potassium Level 3.7 3.6-5.0 MMOL/L Chloride Level 106 98-107 MMOL/L Carbon Dioxide Level 28 21-32 MMOL/L Anion Gap 10 5-14 MMOL/L Blood Urea Nitrogen 18 7-18 MG/DL Creatinine 0.73 0.60-1.30 MG/DL Estimat Glomerular Filtration Rate > 60 BUN/Creatinine Ratio 25 Glucose Level 95 70-105 MG/DL Lactic Acid Level 1.01 0.50-2.00 MMOL/L Calcium Level 9.3 8.5-10.1 MG/DL Corrected Calcium 9.7 8.5-10.1 MG/DL Total Bilirubin 0.6 0.1-1.0 MG/DL Aspartate Amino Transf (AST/SGOT) 30 5-34 U/L Alanine Aminotransferase (ALT/SGPT) 18 0-55 U/L Alkaline Phosphatase 66 40-136 U/L Total Protein 6.4 6.4-8.2 GM/DL Albumin 3.5 3.2-4.5 GM/DL Urine Color YELLOW Urine Clarity CLEAR Urine pH 9 5-9 Urine Specific [place] 1.015 L 1.016-1.022 Urine Protein 2+ H NEGATIVE Urine Glucose (UA) NEGATIVE NEGATIVE Urine Ketones NEGATIVE NEGATIVE Urine Nitrite POSITIVE H NEGATIVE Urine Bilirubin NEGATIVE NEGATIVE Urine Urobilinogen NORMAL NORMAL MG/DL Urine Leukocyte Esterase 3+ H NEGATIVE Urine RBC (Auto) 2+ H NEGATIVE Urine RBC NONE /HPF Urine WBC 10-25 H /HPF Urine Crystals NONE /LPF Urine Bacteria LARGE H /HPF Urine Casts NONE /LPF Urine Mucus SMALL H /LPF Urine Culture Indicated NO Micro Results Microbiology 06/20/18 Blood Culture - Preliminary, Resulted No growth 06/20/18 Blood Culture - Preliminary, Resulted No growth 06/20/18 Influenza Types A,B Antigen (ANABELL) - Final, Complete 06/20/18 Urine Culture - Preliminary, Resulted Proteus species My Orders Orders - JERRY MCDANIEL MD Cbc With Automated Diff (06/20/18 03:43) Comprehensive Metabolic Panel (06/20/18 03:43) Blood Culture (06/20/18 03:43) Urinalysis (06/20/18 03:43) Urine Culture (06/20/18 03:43) Protime With Inr (06/20/18 03:43) Partial Thromboplastin Time (06/20/18 03:43) Chest 1 View, Ap/Pa Only (06/20/18 03:43) Saline Lock/Iv-Start (06/20/18 03:43) Saline Lock/Iv-Start (06/20/18 03:43) Vital Signs Adult Sepsis Patie Q15M (06/20/18 03:43) O2 (06/20/18 03:43) Remove Rings In Anticipation O (06/20/18 03:43) Lactic Acid Analyzer (06/20/18 03:43) Influenza A And B Antigens (06/20/18 03:43) Acetaminophen Tablet (Tylenol Tablet) (06/20/18 03:45) Ceftriaxone For Iv Use (Rocephin For I (06/20/18 05:45) Ondansetron Injection (Zofran Injectio (06/20/18 05:45) Medications Given in ED Vital Signs/I&O Capillary Refill : Less Than 3 Seconds Blood Pressure Mean: 109 Progress Note : Progress Note Septic workup was pursued because of change in mental status and borderline elevated temperature. Patient was given Tylenol for elevated temperature. Initial workup was unremarkable. Patient initially could not produce a urine specimen. Catheterization was attempted by catheter could not be passed. Patient does have history of prostate problems. However, patient became nauseated and retched, he then produced urine. Patient was treated with Zofran. Urinary tract infection was found and Rocephin was administered. Patient did not meet septic criteria and [facility] Diagnostic Imaging Diagonstic Imaging: Xray Plain Films/CT/US/NM/MRI: chest Comments Chest x-ray viewed by me. Report available. No acute abnormalities appreciated. Departure Impression Primary Impression: Urinary tract infection Qualified Codes: N39.0 - Urinary tract infection, site not specified Additional Impressions: Altered mental status Qualified Codes: R41.82 - Altered mental status, unspecified Fall from bed Qualified Codes: W06.XXXA - Fall from bed, initial encounter Nausea Disposition: HOME, SELF-CARE Condition: Improved Departure-Patient Inst. Decision time for Depature: 06:00 Referrals: RADHA BERNAL MD (PCP/Family) Primary Care Physician Patient Instructions: Urinary Tract Infections in Adults Add. Discharge Instructions: Drink plenty of clear liquids. Complete your antibiotics as prescribed. Follow-up with Dr. Bernal's as soon as possible. Call today for an appointment time. Return to care if symptoms worsen. All discharge instructions reviewed with patient and/or family. Voiced understanding. Scripts Ondansetron (Ondansetron Odt) 4 Mg Tab.rapdis 4 MG SL Q4H, #10 TAB Prov: JERRY MCDANIEL MD 06/20/18 Cephalexin (Keflex) 500 Mg Capsule 500 MG PO TID, #20 CAP Prov: JERYR MCDANIEL MD 06/20/18 Copy Copies To 1: RADHA BERNAL MD, JOSHUA T MD Jun 20, 2018 06:17
[2018-06-20] MEDS ORDERED: ONDA4TAB11 SL (06:21)
[2018-06-20] MEDS ORDERED: CEPH-507 PO (06:21)
[2018-06-20 06:27] VITALS: BP 125/64
--- NOTE | 2018-06-20 08:00 | Diagnostic Imaging Report ---
INDICATION: Sepsis. Compared 05/19/2018 FINDINGS: Perihilar infiltrates or congestion on prior resolved. The heart size within normal limits. No infiltrate, edema, pneumonia, effusion or pneumothorax. IMPRESSION: No acute finding at today's study. Dictated by: Dictated on workstation # [id number]
== END 2018-06-20 07:08 | disposition home or self-care (01) ==
LOC: EDUNIT# 03:34 → ER 03:35
DX: Z04.3 Encounter for examination and observation following other accident (principal); N39.0 Urinary tract infection, site not specified; R41.82 Altered mental status, unspecified; I10 Essential (primary) hypertension; F03.90 Unspecified dementia, unspecified severity, without behavioral disturbance, psychotic disturbance, mood disturbance, and anxiety; Z85.828 Personal history of other malignant neoplasm of skin; Z92.21 Personal history of antineoplastic chemotherapy; Z85.46 Personal history of malignant neoplasm of prostate; Z85.51 Personal history of malignant neoplasm of bladder; Z98.1 Arthrodesis status; Z90.79 Acquired absence of other genital organ(s); Z98.890 Other specified postprocedural states; Z87.19 Personal history of other diseases of the digestive system; Z87.891 Personal history of nicotine dependence; Z79.82 Long term (current) use of aspirin; W06.XXXA Fall from bed, initial encounter
CPT/HCPCS: 36415; 51702; 71045; 80053; 81000; 83605; 85025; 85610; 85730; 87040; 87077; 87088; 87186; 87804

== ENCOUNTER 2018-06-21 13:46 | Inpatient (IN) | payer MEDICARE, OTHER ==
[~2018-06-21] VITALS: Ht 175.3 cm; Wt 82.6 kg
[2018-06-21] VITALS (11 sets, daily range): BP systolic 92–148; BP diastolic 43–90
[~2018-06-21 13:46] MED LIST changes: +CEPH-507 PO; +ONDA4TAB11 SL
[2018-06-21] MEDS ORDERED: NS IV 1000 ML 1,000 ML ONE (14:05)
[2018-06-21] MEDS ORDERED: NS IV ONE ×2 (14:15→17:30)
--- NOTE | 2018-06-21 14:17 | ED General ---
General Chief Complaint: Altered Mental Status Stated Complaint: POSS FALL;UTI Source of Information: Patient Exam Limitations: Physical Impairments History of Present Illness Date Seen by Provider: Jun 21, 2018 Time Seen by Provider: 14:00 Initial Comments Seen at triage for reported worsening mental status. Seen yesterday after fall and found to have urinary tract infection. Initiated on antibiotics and discharged back to [facility]. Today he arrives very weak. On initial triage , patient had rapid heart rate with blood pressure in the 60s systolic. Brought right back to the emergency department bed and full evaluation initiated rapidly. Patient is mumbling some but appears to be confused. Ajgvymrz-vt-uol bedside. She just states that is worse today. History limited by clinical condition. Timing/Duration: 24 Hours, Getting Worse Severity: Severe Associated Systoms: No Fever/Chills, No Shortness of Air; Weakness Allergies and Home Medications Allergies Coded Allergies: No Known Drug Allergies (Unverified , 11/09/17) Home Medications Aspirin 81 Mg Tablet.dr, 81 MG PO DAILY, (Reported) Celecoxib 200 Mg Capsule, 200 MG PO DAILY, (Reported) Cephalexin 500 Mg Capsule, 500 MG PO TID Prescribed by: JERRY DAVILA on 06/20/18620 Cetirizine HCl 10 Mg Tablet, 10 MG PO DAILY, (Reported) Docusate Sodium 100 Mg Capsule, 100 MG PO DAILY, (Reported) Fish Oil/Dha/Epa 1 Each Capsule, 2,400 MG PO DAILY, (Reported) TAKES 2 (1200MG) CAPSULES Furosemide 40 Mg Tablet, 40 MG PO DAILY, (Reported) Levothyroxine Sodium 88 Mcg Tablet, 88 MCG PO DAILY@0630 Prescribed by: DANNA LAWS on 06/12/181853 Lisinopril 10 Mg Tablet, 10 MG PO DAILY Prescribed by: DANNA LAWS on 06/12/181853 Nebivolol HCl 5 Mg Tablet, 5 MG PO DAILY, (Reported) Ondansetron 4 Mg Tab.rapdis, 4 MG SL Q4H Prescribed by: JERRY DAVILA on 06/20/18620 Potassium Chloride 10 Meq Capsule.er, 10 MEQ PO DAILY, (Reported) Patient Home Medication List Home Medication List Reviewed: Yes Review of Systems Review of Systems Constitutional: see HPI; No fever Gastrointestinal: see HPI Genitourinary: see HPI Unable to complete review of systems due to clinical condition Past Wjfnvvv-Uzokde-Vulznm Hx Past Med/Social Hx: Reviewed Nursing Past Med/Soc Hx Patient Social History Smoking Status: Former Smoker Type Used: Cigarettes Former Smoker, Quit: May 04, 1977 2nd Hand Smoke Exposure: No Recent Hopitalizations: Yes (4TH MEDICAL) Immunizations Up To Date Tetanus Booster (TDap): Unknown Date of Pneumonia Vaccine: Apr 19, 2016 Date of Influenza Vaccine: Mar 24, 2018 Seasonal Allergies Seasonal Allergies: Yes Past Medical History Surgeries: Yes (inguinal hernia, LAMINECTOMY, rotor cuff, SKIN LESION OFF ELBOW) Prostatectomy Respiratory: No Currently Using CPAP: No Currently Using BIPAP: No Cardiac: Yes Hypertension Neurological: No Reproductive Disorders: No Sexually Transmitted Disease: No HIV/AIDS: No Genitourinary: Yes Prostate Problems Gastrointestinal: Yes Chronic Constipation Musculoskeletal: Yes Degenerate Disk Disease, Arthritis Endocrine: Yes HEENT: Yes Cataract Loss of Vision: Denies Hearing Impairment: Denies Cancer: Yes Bladder, Prostate, Melanoma Did You Recieve Any Treatments: Yes What Type of Treatment Did You: Chemotherapy, Radiation, Surgical Intervention Psychosocial: No Integumentary: No Blood Disorders: No Adverse Reaction/Blood Tranf: No (N/A) Family Medical History Reviewed Nursing Family Hx No Pertinent Family Hx Physical Exam-Suspected Sepsis Physical Exam Vital Signs Vital Signs - First Documented Capillary Refill : Height, Weight, BMI Height: 5'9.00" Weight: 176lbs. 4.0oz. 79.931527ll; 24.4 BMI Method:Stated General Appearance: No Apparent Distress, Chronically ill HEENT: PERRL/EOMI, TMs Normal, Pharynx Normal Neck: Non Tender, Supple Respiratory: Lungs Clear, Normal Breath Sounds Cardiovascular: Regular Rate, Rhythm, No Murmur Gastrointestinal: Non Tender, Soft Back: Normal Inspection, No CVA Tenderness, No Vertebral Tenderness Extremity: Normal Capillary Refill, Normal Range of Motion, Non Tender Neurologic/Psychiatric: No Normal Mood/Affect; Other (multiples and follows simple commands but otherwise does not respond to answers.) Reflexes: 1+ Knee (R), 1+ Knee (L), 1+ Ankle (R), 1+ Ankle (L) Skin: normal color; No diaphoresis, No ulcerations Focused Exam Lactate Level 06/21/18 14:13: Lactic Acid Level 1.10 Lactic Acid Level Laboratory Tests Test 06/21/18 14:13 Lactic Acid Level 1.10 MMOL/L (0.50-2.00) Progress/Results/Core Measures Suspected Sepsis SIRS Temperature: Pulse: Respiratory Rate: Laboratory Tests 06/21/18 14:13: White Blood Count 11.1H Blood Pressure / Mean: 06/21/18 14:13: Lactic Acid Level 1.10 Laboratory Tests 06/21/18 14:13: Creatinine 1.00, INR Comment 1.3, Platelet Count 283, Total Bilirubin 0.7 Results/Orders Lab Results Laboratory Tests Test 06/21/18 14:13 06/21/18 14:39 Range/Units White Blood Count 11.1 H 4.3-11.0 10^3/uL Red Blood Count 3.67 L 4.35-5.85 10^6/uL Hemoglobin 10.1 L 13.3-17.7 G/DL Hematocrit 32 L 40-54 % Mean Corpuscular Volume 88 80-99 FL Mean Corpuscular Hemoglobin 28 25-34 PG Mean Corpuscular Hemoglobin Concent 32 32-36 G/DL Red Cell Distribution Width 14.8 H 10.0-14.5 % Platelet Count 283 130-400 10^3/uL Mean Platelet Volume 10.0 7.4-10.4 FL Neutrophils (%) (Auto) 46 42-75 % Lymphocytes (%) (Auto) 23 12-44 % Monocytes (%) (Auto) 6 0-12 % Eosinophils (%) (Auto) 25 H 0-10 % Basophils (%) (Auto) 1 0-10 % Neutrophils # (Auto) 5.1 1.8-7.8 X 10^3 Lymphocytes # (Auto) 2.5 1.0-4.0 X 10^3 Monocytes # (Auto) 0.7 0.0-1.0 X 10^3 Eosinophils # (Auto) 2.7 H 0.0-0.3 10^3/uL Basophils # (Auto) 0.1 0.0-0.1 10^3/uL Neutrophils % (Manual) 51 % Lymphocytes % (Manual) 23 % Monocytes % (Manual) 2 % Eosinophils % (Manual) 17 % Basophils % (Manual) 0 % Band Neutrophils 0 % Reactive Lymphocytes 7 % Clumped Platelets SLIGHT Poikilocytosis SLIGHT Anisocytosis SLIGHT Elliptocytes SLIGHT Acanthocytes SLIGHT Prothrombin Time 15.9 H 12.2-14.7 SEC INR Comment 1.3 0.8-1.4 Activated Partial Thromboplast Time 58 H 24-35 SEC Sodium Level 141 135-145 MMOL/L Potassium Level 3.5 L 3.6-5.0 MMOL/L Chloride Level 105 98-107 MMOL/L Carbon Dioxide Level 28 21-32 MMOL/L Anion Gap 8 5-14 MMOL/L Blood Urea Nitrogen 21 H 7-18 MG/DL Creatinine 1.00 0.60-1.30 MG/DL Estimat Glomerular Filtration Rate > 60 BUN/Creatinine Ratio 21 Glucose Level 95 70-105 MG/DL Lactic Acid Level 1.10 0.50-2.00 MMOL/L Calcium Level 9.1 8.5-10.1 MG/DL Corrected Calcium 9.7 8.5-10.1 MG/DL Total Bilirubin 0.7 0.1-1.0 MG/DL Aspartate Amino Transf (AST/SGOT) 27 5-34 U/L Alanine Aminotransferase (ALT/SGPT) 19 0-55 U/L Alkaline Phosphatase 58 40-136 U/L Total Protein 6.0 L 6.4-8.2 GM/DL Albumin 3.3 3.2-4.5 GM/DL Urine Color YELLOW Urine Clarity CLEAR Urine pH 6 5-9 Urine Specific [place] 1.015 L 1.016-1.022 Urine Protein 2+ H NEGATIVE Urine Glucose (UA) NEGATIVE NEGATIVE Urine Ketones NEGATIVE NEGATIVE Urine Nitrite POSITIVE H NEGATIVE Urine Bilirubin NEGATIVE NEGATIVE Urine Urobilinogen NORMAL NORMAL MG/DL Urine Leukocyte Esterase 3+ H NEGATIVE Urine RBC (Auto) 3+ H NEGATIVE Urine RBC 2-5 H /HPF Urine WBC >100 H /HPF Urine Squamous Epithelial Cells RARE /HPF Urine Renal Epithelial Cells NONE /HPF Urine Crystals NONE /LPF Urine Bacteria FEW H /HPF Urine Casts PRESENT /LPF Urine Hyaline Casts 25-50 H /LPF Urine Mucus NEGATIVE /LPF Urine Culture Indicated My Orders Orders - TERRY HENRY MD Ns Iv 1000 Ml (Sodium Chloride 0.9%) (06/21/18 14:05) Cbc With Automated Diff (06/21/18 14:09) Comprehensive Metabolic Panel (06/21/18 14:09) Blood Culture (06/21/18 14:09) Sputum Culture (06/21/18 14:09) Urinalysis (06/21/18 14:09) Urine Culture (06/21/18 14:09) Protime With Inr (06/21/18 14:09) Partial Thromboplastin Time (06/21/18 14:09) Chest 1 View, Ap/Pa Only (06/21/18 14:09) Saline Lock/Iv-Start (06/21/18 14:09) Saline Lock/Iv-Start (06/21/18 14:09) Vital Signs Adult Sepsis Patie Q15M (06/21/18 14:09) O2 (06/21/18 14:09) Remove Rings In Anticipation O (06/21/18 14:09) Lactic Acid Analyzer (06/21/18 14:09) Ns Iv 1000 Ml (Sodium Chloride 0.9%) (06/21/18 14:15) Ekg Tracing (06/21/18 14:10) Manual Differential (06/21/18 14:13) Ct Head Wo (06/21/18 14:24) Piperacillin Sodium/Tazobactam (Zosyn Vi (06/21/18 15:15) Medications Given in ED Current Medications Medications Dose Ordered Sig/Cliff Route Start Time Stop Time Status Last Admin Dose Admin Piperacillin Sod/ Tazobactam Sod 4.5 gm/Sodium Chloride 100 ml @ 200 mls/hr ONCE ONCE IV 06/21/18 15:15 06/21/18 15:44 DC 06/21/18 15:59 200 MLS/HR Sodium Chloride 2,398.38 ml @ 2,398.38 mls/hr ONCE ONCE IV 06/21/18 14:15 06/21/18 17:24 DC 06/21/18 14:09 2,398.38 MLS/HR Vital Signs/I&O 06/21/18 06/21/18 06/21/18 14:02 14:02 17:00 Temp 98.0 Pulse 72 81 Resp 11 10 B/P (MAP) 90/64 (73) 92/55 (67) Pulse Ox 92 95 98 O2 Delivery Nasal Cannula Nasal Cannula Nasal Cannula O2 Flow Rate 2.00 4.00 2.00 Capillary Refill : Progress Note : Progress Note Seen and evaluated. Sepsis protocol initiated. Patient will require 30 mL/kg IV fluid as he is known urinary tract infection and now is hypotensive with altered mental status indicating septic shock. Patient does have port catheter. This will be accessed. Second IV site will be obtained as well. Monitor patient. We will get CT head as patient stabilizes as well. 1630: Fluid bolus nearly complete. Patient doing much better with blood pressure 115/ 56 with O2 sat 97 percent on room air and heart rate of 80. I attest a focused exam at this time. Dr. Yi in room evaluating as well. I did discuss the case with and she accepts patient for admission to the ICU. There are concerns as septic shock given his initial blood pressures. We do know that he has urinary tract infection. Patient did receive Zosyn 4.5 g IV earlier at 1530. I did discuss findings and concerns with the patient and family. He is doing much better and is answering questions. Family members agree with admission and plan. Palliative care consult to be placed. ECG Initial ECG Impression Date: Jun 21, 2018 Initial ECG Impression Time: 14:03 Initial ECG Rate: 71 Initial ECG Rhythm: Normal Sinus Comment Sinus rhythm with first-degree AV block. Left anterior fascicular block. Left axis deviation. Similar to previous of 06/07/18. Listed as atrial fibrillation previously but does have artifact. This would appear to be sinus with some underlying artifact. Interpreted by me. Diagnostic Imaging Diagonstic Imaging: Xray Plain Films/CT/US/NM/MRI: chest Comments [facility] [place], [place] NAME: SELINA CARNES [facility] REC#: [id number] PT STATUS: REG ER : 1940 PHYSICIAN: TERRY HENRY MD ADMIT DATE: 06/21/18/ER Draft Date of Exam:06/21/18 CHEST 1 VIEW, AP/PA ONLY Indication: Altered mental status, history of fall Frontal chest obtained at 241 hours p.m. and compared with yesterday The heart is mildly enlarged. Port-A-Cath is unchanged. There is no focal infiltrate or pneumothorax or pleural fluid. There are postop changes in the lower cervical spine. IMPRESSION: Cardiomegaly. No focal infiltrate or pneumothorax or pleural fluid. Dictated on workstation # [id number] Dict: 06/21/18 1453 Trans: 06/21/18 1456 [facility] [id number] Interpreted by: HERNANDEZ ENGLISH MD Electronically signed by: Departure Communication (Admissions) Time/Spoke to Admitting Phy: 16:30 Impression Primary Impression: Septic shock Additional Impression: UTI (urinary tract infection) Qualified Codes: N30.00 - Acute cystitis without hematuria Disposition: ADMITTED INPATIENT Condition: Critical Admissions Decision to Admit Reason: Admit from ER (General) Decision to Admit/Date: Jun 21, 2018 Time/Decision to Admit Time: 16:30 Departure-Patient Inst. Decision time for Depature: 16:30 Referrals: RADHA BERNAL MD (PCP/Family) Primary Care Physician TERRY HENRY MD Jun 21, 2018 14:16
--- OUTSIDE RECORDS SUMMARY | 2018-06-21 14:17 | XMS REPORT | Continuity of Care Document ---
Author Author [facility] Organization [facility] Address Unknown Phone Unavailable Allergies Active Description Code Type Severity Reaction Onset Reported/Identified Relationship to Patient Clinical Status Yes NKANo Known Allergies NKA Miscellaneous Allergy Mild N/A 03/12/2006 Yes No Known Drug Allergies [id number] Drug Allergy Unknown N/A 11/09/2017 Medications There is no data. Problems Date Dx Coded Attending Type Code Diagnosis Diagnosed By AURE JONES MD, Ot 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, I AURE JONES MD, Ot 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 GAMMOPATHY AURE JONES MD, Ot I10 ESSENTIAL (PRIMARY) HYPERTENSION AURE JONES MD, Ot I25.10 ATHSCL HEART DISEASE OF [place] CORONARY AURE JONES MD, Ot I49.5 SICK SINUS SYNDROME AURE JONES MD Ot M19.91 PRIMARY OSTEOARTHRITIS, UNSPECIFIED SITE AURE JONES MD Ot Z51.11 ENCOUNTER FOR ANTINEOPLASTIC CHEMOTHERAP AURE JONES MD Ot Z79.82 [facility] (CURRENT) USE OF ASPIRIN AURE JONES MD Ot Z79.899 OTHER [facility] (CURRENT) DRUG THERAPY AURE JONES MD Ot Z87.891 PERSONAL HISTORY OF NICOTINE DEPENDENCE 06/02/1649 AURE JONES MD, Ot 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, I 06/02/1649 ARUE JONES MD, Ot 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 GAMMOPATHY 06/02/1649 AURE JONES MD Ot I10 ESSENTIAL (PRIMARY) HYPERTENSION 06/02/1649 AURE JONES MD Ot I25.10 ATHSCL HEART DISEASE OF [place] CORONARY 06/02/1649 AURE JONES MD Ot I49.5 SICK SINUS SYNDROME 06/02/1649 AURE JONES MD, Ot M19.91 PRIMARY OSTEOARTHRITIS, UNSPECIFIED SITE 06/02/1649 AURE JONES MD Ot Z79.82 [facility] (CURRENT) USE OF ASPIRIN 06/02/1649 AURE JONES MD Ot Z79.899 OTHER [facility] (CURRENT) DRUG THERAPY 06/02/1649 AURE JONES MD [...] OTH MED,LT,CURRENT USE 09/30/2013 JOSUE JIMENEZ, KATELYNN Chirstopher Ot 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 09/30/2013 JOSUE JIMENEZ, [...] JOSUE JIMENEZ, KATELYNN Christopher Ot Z79.899 OTHER [facility] (CURRENT) DRUG THERAPY 09/24/2015 JOSUE JIMENEZ, KATELYNN [...] JOSUE JIMENEZ, KATELYNN Christopher Ot Z79.899 OTHER ARRT TECHNOLOGIST (CURRENT) DRUG THERAPY 10/22/2015 DANNA LAWS MD [...] 10/24/2015 KATELYNN SALAS MD Ot Z79.899 OTHER ARRT TECHNOLOGIST (CURRENT) DRUG THERAPY 10/25/2015 DANNA LAWS MD [...] LAWS MD Ot E87.6 HYPOKALEMIA 10/26/2015 DANNA LASW MD E Ot I10 ESSENTIAL (PRIMARY) HYPERTENSION [...] JOSUE JIMENEZ KATELYNN Ashwin Ot Z79.899 OTHER ARRT TECHNOLOGIST (CURRENT) DRUG THERAPY 12/10/2015 FRANCISCO LUNA MD Ot N39.0 URINARY TRACT INFECTION, SITE NOT SPECIF 12/23/2015 KATELYNN SALAS MD Ot 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 GAMMOPATHY 12/23/2015 KTAELYNN SALAS MD Ot I10 ESSENTIAL (PRIMARY) HYPERTENSION 12/23/2015 KATELYNN SALAS MD Ot M12.9 ARTHROPATHY, UNSPECIFIED 12/23/2015 KATELYNN SALAS MD Ot M51.9 UNSP THORACIC, THORACOLUM AND LUMBOSACR 12/23/2015 KATELYNN SALAS MD Ot Z79.899 OTHER [facility] (CURRENT) DRUG THERAPY 03/24/2016 AURE JONES MD, Ot 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 GAMMOPATHY 03/24/2016 AURE JONES MD Ot I10 ESSENTIAL (PRIMARY) HYPERTENSION 03/24/2016 AURE JONES MD Ot M12.9 ARTHROPATHY, UNSPECIFIED 03/24/2016 AURE JONES MD Ot M51.9 UNSP THORACIC, THORACOLUM AND LUMBOSACR 03/24/2016 AURE JONES MD Ot Z79.899 OTHER [facility] (CURRENT) DRUG THERAPY 06/10/2016 Ot 356.9 IDIO [...] 06/10/2016 AURE JONES MD Ot Z79.899 OTHER [facility] (CURRENT) DRUG THERAPY 06/10/2016 TERRY HENRY MD, Ot I10 ESSENTIAL (PRIMARY) HYPERTENSION 06/10/2016 TERRY HENRY MD Ot J06.9 ACUTE UPPER RESPIRATORY INFECTION, UNSPE 06/10/2016 TERRY HENRY MD Ot R07.89 OTHER CHEST PAIN 06/10/2016 TERRY HENRY MD, Ot Z79.899 OTHER [facility] (CURRENT) DRUG THERAPY 06/11/2016 TERRY HENRY MD, Ot I10 ESSENTIAL (PRIMARY) HYPERTENSION 06/11/2016 TERRY HENRY MD Ot J06.9 ACUTE UPPER RESPIRATORY INFECTION, UNSPE 06/11/2016 TERRY HENRY MD Ot R07.89 OTHER CHEST PAIN 06/11/2016 TERRY HENRY MD, Ot Z79.899 OTHER [facility] (CURRENT) DRUG THERAPY 11/11/2016 TIERRA MARIN MD [...] 11/22/2016 AURE JONES MD Ot Z79.899 OTHER ARRT TECHNOLOGIST (CURRENT) DRUG THERAPY 11/22/2016 TIERRA MARIN MD Ot G89.29 OTHER CHRONIC PAIN 11/22/2016 TIERRA MAIRN MD Ot I10 ESSENTIAL (PRIMARY) HYPERTENSION 11/22/2016 [...] 04/26/2017 AURE JONES MD Ot Z79.899 OTHER [facility] (CURRENT) DRUG THERAPY 04/26/2017 TIERRA MARIN MD [...] MD Ot I25.10 ATHSCL HEART DISEASE OF [place] CORONARY 05/04/2017 TIERRA MARIN MD Ot I49.5 SICK SINUS SYNDROME 05/04/2017 TIERRA MARIN MD Ot 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[place] 05/04/2017 TIERRA MARIN MD Ot M19.91 PRIMARY OSTEOARTHRITIS, UNSPECIFIED SITE 05/04/2017 TIERRA MARIN MD Ot R60.0 LOCALIZED EDEMA 05/04/2017 TIERRA MARIN MD Ot Z79.899 OTHER [facility] (CURRENT) DRUG THERAPY 05/18/2017 TIERRA MARIN MD [...] 09/22/2017 AURE JONES MD Ot Z79.899 OTHER [facility] (CURRENT) DRUG THERAPY 09/28/2017 AURE JONES MD Ot 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, I 09/28/2017 AURE JONES MD, Ot 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 GAMMOPATHY 09/28/2017 AURE JONES MD Ot I10 ESSENTIAL (PRIMARY) HYPERTENSION 09/28/2017 AURE JONES MD Ot I25.10 ATHSCL HEART DISEASE OF [place] CORONARY 09/28/2017 AURE JONES MD Ot I49.5 SICK SINUS SYNDROME 09/28/2017 AURE JONES MD Ot M19.91 PRIMARY OSTEOARTHRITIS, UNSPECIFIED SITE 09/28/2017 AURE JONES MD Ot Z79.82 [facility] (CURRENT) USE OF ASPIRIN 09/28/2017 AURE JONES MD Ot Z79.899 OTHER ARRT TECHNOLOGIST (CURRENT) DRUG THERAPY 09/28/2017 AURE JONES MD [...] MD Ot I25.10 ATHSCL HEART DISEASE OF [place] CORONARY 09/30/2017 AURE JONES MD Ot I49.5 SICK SINUS SYNDROME 09/30/2017 AURE JONES MD Ot M19.91 PRIMARY OSTEOARTHRITIS, UNSPECIFIED SITE 09/30/2017 AURE JONES MD Ot Z79.82 ARRT TECHNOLOGIST (CURRENT) USE OF ASPIRIN 09/30/2017 AURE JONES MD Ot Z79.899 OTHER ARRT TECHNOLOGIST (CURRENT) DRUG THERAPY 09/30/2017 AURE JONES MD [...] HYPERTENSION 10/07/2017 KIKI ROWE MD Ot Z79.82 ARRT TECHNOLOGIST (CURRENT) USE OF ASPIRIN 10/07/2017 KIKI ROWE MD Ot Z79.899 OTHER [facility] (CURRENT) DRUG THERAPY 10/07/2017 KIKI ROWE MD Ot Z87.891 PERSONAL HISTORY OF NICOTINE DEPENDENCE 10/11/2017 KIKI ROWE MD Ot 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, I 10/11/2017 KIKI ROWE MD Ot 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 10/11/2017 KIKI ROWE MD Ot I10 ESSENTIAL (PRIMARY) HYPERTENSION 10/11/2017 KIKI ROWE MD Ot Z79.82 [facility] (CURRENT) USE OF ASPIRIN 10/11/2017 KIKI ROWE MD Ot Z79.899 OTHER [facility] (CURRENT) DRUG THERAPY 10/11/2017 KIKI ROWE MD Ot Z87.891 PERSONAL HISTORY OF NICOTINE DEPENDENCE 10/11/2017 KIKI ROWE MD Ot 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, I 10/11/2017 KIKI ROWE MD Ot 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 10/11/2017 KIKI ROWE MD Ot I10 ESSENTIAL (PRIMARY) HYPERTENSION 10/11/2017 KIKI ROWE MD Ot Z79.82 [facility] (CURRENT) USE OF ASPIRIN 10/11/2017 KIKI ROWE MD Ot Z79.899 OTHER ARRT TECHNOLOGIST (CURRENT) DRUG THERAPY 10/11/2017 KIKI ROWE MD Ot Z87.891 PERSONAL HISTORY OF NICOTINE DEPENDENCE 10/12/2017 KIKI ROWE MD, Ot 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, I 10/12/2017 KIKI ROWE MD, Ot 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 10/12/2017 KIKI ROWE MD, Ot I10 ESSENTIAL (PRIMARY) HYPERTENSION 10/12/2017 KIKI ROWE MD, Ot Z79.82 ARRT TECHNOLOGIST (CURRENT) USE OF ASPIRIN 10/12/2017 KIKI ROWE MD, Ot Z79.899 OTHER ARRT TECHNOLOGIST (CURRENT) DRUG THERAPY 10/12/2017 KIKI ROWE MD, [...] MD Ot I25.10 ATHSCL HEART DISEASE OF [place] CORONARY 10/12/2017 AURE JONES MD Ot I49.5 SICK SINUS SYNDROME 10/12/2017 AURE JONES MD Ot M19.91 PRIMARY OSTEOARTHRITIS, UNSPECIFIED SITE 10/12/2017 AURE JONES MD Ot Z79.82 ARRT TECHNOLOGIST (CURRENT) USE OF ASPIRIN 10/12/2017 AURE JONES MD Ot Z79.899 OTHER [facility] (CURRENT) DRUG THERAPY 10/12/2017 AURE JONES MD [...] HYPERTENSION 10/13/2017 KIKI ROWE MD, Ot Z79.82 ARRT TECHNOLOGIST (CURRENT) USE OF ASPIRIN 10/13/2017 KIKI ROWE MD, Ot Z79.899 OTHER [facility] (CURRENT) DRUG THERAPY 10/13/2017 KIKI ROWE MD, Ot Z87.891 PERSONAL HISTORY OF NICOTINE DEPENDENCE 10/16/2017 KIKI ROWE MD, Ot 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, I 10/16/2017 KIKI ROWE MD Ot 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 10/16/2017 KIKI ROWE MD Ot I10 ESSENTIAL (PRIMARY) HYPERTENSION 10/16/2017 KIKI ROWE MD Ot Z79.82 ARRT TECHNOLOGIST (CURRENT) USE OF ASPIRIN 10/16/2017 KIKI ROWE MD Ot Z79.899 OTHER [facility] (CURRENT) DRUG THERAPY 10/16/2017 KIKI ROWE MD, [...] MD Ot I25.10 ATHSCL HEART DISEASE OF [place] CORONARY 10/24/2017 KIKI ROWE MD Ot K57.30 DVRTCLOS OF LG INT W/O PERFORATION OR AB 10/24/2017 KIKI ROWE MD Ot Z79.82 ARRT TECHNOLOGIST (CURRENT) USE OF ASPIRIN 10/24/2017 KIKI ROWE MD Ot Z79.899 OTHER [facility] (CURRENT) DRUG THERAPY 10/24/2017 KIKI ROWE MD [...] MD Ot I25.10 ATHSCL HEART DISEASE OF [place] CORONARY 10/26/2017 KIKI ROWE MD Ot K57.30 DVRTCLOS OF LG INT W/O PERFORATION OR AB 10/26/2017 KIKI ROWE MD Ot Z79.82 ARRT TECHNOLOGIST (CURRENT) USE OF ASPIRIN 10/26/2017 KIKI ROWE MD Ot Z79.899 OTHER ARRT TECHNOLOGIST (CURRENT) DRUG THERAPY 10/26/2017 KIKI ROWE MD Ot Z87.891 PERSONAL HISTORY OF NICOTINE DEPENDENCE 10/26/2017 KIKI ROWE MD Ot 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, I 10/26/2017 KIKI ROWE MD Ot I25.10 ATHSCL HEART DISEASE OF [place] CORONARY 10/26/2017 KIKI ROWE MD Ot K57.30 DVRTCLOS OF LG INT W/O PERFORATION OR AB 10/26/2017 KIKI ROWE MD Ot Z79.82 [facility] (CURRENT) USE OF ASPIRIN 10/26/2017 KIKI ROWE MD Ot Z79.899 OTHER ARRT TECHNOLOGIST (CURRENT) DRUG THERAPY 10/26/2017 KIKI ROWE MD, Ot Z87.891 PERSONAL HISTORY OF NICOTINE DEPENDENCE 10/26/2017 AURE JONES MD, Ot 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, I 10/26/2017 AURE JONES MD Ot 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 GAMMOPATHY 10/26/2017 AURE JONES MD Ot I10 ESSENTIAL (PRIMARY) HYPERTENSION 10/26/2017 AURE JONES MD Ot I25.10 ATHSCL HEART DISEASE OF [place] CORONARY 10/26/2017 AURE JONES MD Ot I49.5 SICK SINUS SYNDROME 10/26/2017 AURE JONES MD, Ot M19.91 PRIMARY OSTEOARTHRITIS, UNSPECIFIED SITE 10/26/2017 AURE JONES MD, Ot Z79.82 [facility] (CURRENT) USE OF ASPIRIN 10/26/2017 AURE JONES MD, Ot Z79.899 OTHER [facility] (CURRENT) DRUG THERAPY 10/26/2017 AURE JONES MD, Ot Z87.891 PERSONAL HISTORY OF NICOTINE DEPENDENCE 10/27/2017 KIKI ROWE MD, Ot E04.1 NONTOXIC SINGLE THYROID NODULE 10/30/2017 KIKI ROWE MD, Ot 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, I 10/30/2017 KIKI ROWE MD, Ot I25.10 ATHSCL HEART DISEASE OF [place] CORONARY 10/30/2017 KIKI ROWE MD, Ot K57.30 DVRTCLOS OF LG INT W/O PERFORATION OR AB 10/30/2017 KIKI ROWE MD, Ot Z79.82 [facility] (CURRENT) USE OF ASPIRIN 10/30/2017 KIKI ROWE MD, Ot Z79.899 OTHER ARRT TECHNOLOGIST (CURRENT) DRUG THERAPY 10/30/2017 KIKI ROWE MD, [...] MD Ot I25.10 ATHSCL HEART DISEASE OF [place] CORONARY 11/03/2017 AURE JONES MD Ot I49.5 SICK SINUS SYNDROME 11/03/2017 AURE JONES MD Ot M19.91 PRIMARY OSTEOARTHRITIS, UNSPECIFIED SITE 11/03/2017 AURE JONES MD Ot Z79.82 ARRT TECHNOLOGIST (CURRENT) USE OF ASPIRIN 11/03/2017 AURE JONES MD Ot Z79.899 OTHER [facility] (CURRENT) DRUG THERAPY 11/03/2017 AURE JONES MD Ot Z87.891 PERSONAL HISTORY OF NICOTINE DEPENDENCE 11/03/2017 AURE JONES MD Ot 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, I 11/03/2017 AURE JONES MD Ot 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 GAMMOPATHY 11/03/2017 AURE JONES MD Ot I10 ESSENTIAL (PRIMARY) HYPERTENSION 11/03/2017 AURE JONES MD Ot I25.10 ATHSCL HEART DISEASE OF [place] CORONARY 11/03/2017 AURE JONES MD Ot I49.5 SICK SINUS SYNDROME 11/03/2017 UARE JONES MD Ot M19.91 PRIMARY OSTEOARTHRITIS, UNSPECIFIED SITE 11/03/2017 AURE JONES MD Ot Z79.82 [facility] (CURRENT) USE OF ASPIRIN 11/03/2017 AURE JONES MD Ot Z79.899 OTHER ARRT TECHNOLOGIST (CURRENT) DRUG THERAPY 11/03/2017 AURE JONES MD Ot Z87.891 PERSONAL HISTORY OF NICOTINE DEPENDENCE 11/04/2017 AURE JONES MD Ot 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, I 11/04/2017 AURE JONES MD Ot 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 GAMMOPATHY 11/04/2017 AURE JONES MD Ot I10 ESSENTIAL (PRIMARY) HYPERTENSION 11/04/2017 AURE JONES MD Ot I25.10 ATHSCL HEART DISEASE OF [place] CORONARY 11/04/2017 AURE JONES MD Ot I49.5 SICK SINUS SYNDROME 11/04/2017 AURE JONES MD Ot M19.91 PRIMARY OSTEOARTHRITIS, UNSPECIFIED SITE 11/04/2017 AURE JONES MD Ot Z79.82 ARRT TECHNOLOGIST (CURRENT) USE OF ASPIRIN 11/04/2017 AURE JONES MD Ot Z79.899 OTHER ARRT TECHNOLOGIST (CURRENT) DRUG THERAPY 11/04/2017 AURE JONES MD Ot Z87.891 PERSONAL HISTORY OF NICOTINE DEPENDENCE 11/06/2017 AURE JONES MD Ot Z85.820 PERSONAL HISTORY OF MALIGNANT MELANOMA O 11/08/2017 AURE JONES MD Ot 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, I 11/08/2017 AURE JONES MD Ot 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 GAMMOPATHY 11/08/2017 ARUE JONES MD Ot I10 ESSENTIAL (PRIMARY) HYPERTENSION 11/08/2017 AURE JONES MD Ot I25.10 ATHSCL HEART DISEASE OF [place] CORONARY 11/08/2017 AURE JONES MD Ot I49.5 SICK SINUS SYNDROME 11/08/2017 AURE JONES MD Ot M19.91 PRIMARY OSTEOARTHRITIS, UNSPECIFIED SITE 11/08/2017 AURE JONES MD Ot Z79.82 [facility] (CURRENT) USE OF ASPIRIN 11/08/2017 AURE JONES MD Ot Z79.899 OTHER ARRT TECHNOLOGIST (CURRENT) DRUG THERAPY 11/08/2017 AURE JONES MD [...] MD Ot I25.10 ATHSCL HEART DISEASE OF [place] CORONARY 11/11/2017 KIKI ROWE MD Ot Z79.82 [facility] (CURRENT) USE OF ASPIRIN 11/11/2017 KIKI ROWE MD Ot Z79.899 OTHER [facility] (CURRENT) DRUG THERAPY 11/11/2017 KIKI ROWE MD Ot Z87.891 PERSONAL HISTORY OF NICOTINE DEPENDENCE 11/15/2017 KIKI ROWE MD Ot 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, I 11/15/2017 KIKI ROWE MD Ot 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 11/15/2017 KIKI ROWE MD Ot I10 ESSENTIAL (PRIMARY) HYPERTENSION 11/15/2017 KIKI ROWE MD Ot I25.10 ATHSCL HEART DISEASE OF [place] CORONARY 11/15/2017 KIKI ROWE MD Ot Z79.82 [facility] (CURRENT) USE OF ASPIRIN 11/15/2017 KIKI ROWE MD Ot Z79.899 OTHER ARRT TECHNOLOGIST (CURRENT) DRUG THERAPY 11/15/2017 KIKI ROWE MD [...] MD Ot I25.10 ATHSCL HEART DISEASE OF [place] CORONARY 11/22/2017 KIKI ROWE MD Ot Z79.82 ARRT TECHNOLOGIST (CURRENT) USE OF ASPIRIN 11/22/2017 KIKI ROWE MD Ot Z79.899 OTHER ARRT TECHNOLOGIST (CURRENT) DRUG THERAPY 11/22/2017 KIKI ROWE MD, [...] MD Ot I25.10 ATHSCL HEART DISEASE OF [place] CORONARY 11/23/2017 AURE JONES MD Ot I49.5 SICK SINUS SYNDROME 11/23/2017 AURE JONES MD Ot M19.91 PRIMARY OSTEOARTHRITIS, UNSPECIFIED SITE 11/23/2017 AURE JONES MD Ot Z79.82 [facility] (CURRENT) USE OF ASPIRIN 11/23/2017 AURE JONES MD Ot Z79.899 OTHER ARRT TECHNOLOGIST (CURRENT) DRUG THERAPY 11/23/2017 AURE JONES MD [...] MD Ot I25.10 ATHSCL HEART DISEASE OF [place] CORONARY 12/12/2017 AURE JONES MD Ot I49.5 SICK SINUS SYNDROME 12/12/2017 AURE JONES MD Ot M19.91 PRIMARY OSTEOARTHRITIS, UNSPECIFIED SITE 12/12/2017 AURE JONES MD Ot Z79.82 [facility] (CURRENT) USE OF ASPIRIN 12/12/2017 AURE JONES MD Ot Z79.899 OTHER [facility] (CURRENT) DRUG THERAPY 12/12/2017 AURE JONES MD Ot Z87.891 PERSONAL HISTORY OF NICOTINE DEPENDENCE 12/21/2017 KIKI ROWE MD Ot 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, I 12/21/2017 KIKI ROWE MD Ot 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 12/21/2017 KIKI ROWE MD Ot I10 ESSENTIAL (PRIMARY) HYPERTENSION 12/21/2017 KIKI ROWE MD Ot I25.10 ATHSCL HEART DISEASE OF [place] CORONARY 12/21/2017 KIKI ROWE MD Ot Z79.82 ARRT TECHNOLOGIST (CURRENT) USE OF ASPIRIN 12/21/2017 KIKI ROWE MD Ot Z79.899 OTHER [facility] (CURRENT) DRUG THERAPY 12/21/2017 KIKI ROWE MD Ot Z87.891 PERSONAL HISTORY OF NICOTINE DEPENDENCE 12/23/2017 AURE JONES MD Ot 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, I 12/23/2017 AURE JONES MD Ot 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 GAMMOPATHY 12/23/2017 AURE JONES MD Ot I10 ESSENTIAL (PRIMARY) HYPERTENSION 12/23/2017 AURE JONES MD Ot I25.10 ATHSCL HEART DISEASE OF [place] CORONARY 12/23/2017 AURE JONES MD Ot I49.5 SICK SINUS SYNDROME 12/23/2017 AURE JONES MD Ot M19.91 PRIMARY OSTEOARTHRITIS, UNSPECIFIED SITE 12/23/2017 AURE OJNES MD Ot Z79.82 ARRT TECHNOLOGIST (CURRENT) USE OF ASPIRIN 12/23/2017 AURE JONES MD Ot Z79.899 OTHER [facility] (CURRENT) DRUG THERAPY 12/23/2017 AURE JONES MD Ot Z87.891 PERSONAL HISTORY OF NICOTINE DEPENDENCE 01/05/2018 AURE JONES MD Ot 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, I 01/05/2018 AURE JONES MD Ot 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 GAMMOPATHY 01/05/2018 AURE JONES MD Ot I10 ESSENTIAL (PRIMARY) HYPERTENSION 01/05/2018 AURE JONES MD Ot I25.10 ATHSCL HEART DISEASE OF [place] CORONARY 01/05/2018 AURE JONES MD Ot I49.5 SICK SINUS SYNDROME 01/05/2018 AURE JONES MD Ot M19.91 PRIMARY OSTEOARTHRITIS, UNSPECIFIED SITE 01/05/2018 AURE JONES MD Ot Z79.82 ARRT TECHNOLOGIST (CURRENT) USE OF ASPIRIN 01/05/2018 AURE JONES MD Ot Z79.899 OTHER ARRT TECHNOLOGIST (CURRENT) DRUG THERAPY 01/05/2018 AURE JONES MD Ot Z87.891 PERSONAL HISTORY OF NICOTINE DEPENDENCE 01/05/2018 AURE JONES MD Ot 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, I 01/05/2018 AURE JONES MD Ot 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 GAMMOPATHY 01/05/2018 AURE JONES MD Ot I10 ESSENTIAL (PRIMARY) HYPERTENSION 01/05/2018 AURE JONES MD Ot I25.10 ATHSCL HEART DISEASE OF [place] CORONARY 01/05/2018 AURE JONES MD Ot I49.5 SICK SINUS SYNDROME 01/05/2018 AURE JONES MD Ot M19.91 PRIMARY OSTEOARTHRITIS, UNSPECIFIED SITE 01/05/2018 AURE JONES MD Ot Z79.82 ARRT TECHNOLOGIST (CURRENT) USE OF ASPIRIN 01/05/2018 AURE JONES MD Ot Z79.899 OTHER [facility] (CURRENT) DRUG THERAPY 01/05/2018 AURE JONES MD Ot Z87.891 PERSONAL HISTORY OF NICOTINE DEPENDENCE 01/19/2018 AURE JONES MD Ot 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, I 01/19/2018 AURE JONES MD Ot 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 GAMMOPATHY 01/19/2018 AURE JONES MD Ot I10 ESSENTIAL (PRIMARY) HYPERTENSION 01/19/2018 AURE JONES MD Ot I25.10 ATHSCL HEART DISEASE OF [place] CORONARY 01/19/2018 AURE JONES MD Ot I49.5 SICK SINUS SYNDROME 01/19/2018 AURE JONES MD Ot M19.91 PRIMARY OSTEOARTHRITIS, UNSPECIFIED SITE 01/19/2018 AURE JONES MD Ot Z79.82 [facility] (CURRENT) USE OF ASPIRIN 01/19/2018 AURE JONES MD Ot Z79.899 OTHER [facility] (CURRENT) DRUG THERAPY 01/19/2018 AURE JONES MD Ot Z87.891 PERSONAL HISTORY OF NICOTINE DEPENDENCE 02/05/2018 AURE JONES MD Ot 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, I 02/05/2018 AURE JONES MD Ot 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 GAMMOPATHY 02/05/2018 AURE JONES MD Ot I10 ESSENTIAL (PRIMARY) HYPERTENSION 02/05/2018 JACE JONES MDNER Ot I25.10 ATHSCL HEART DISEASE OF [place] CORONARY 02/05/2018 AURE JONES MD Ot I49.5 SICK SINUS SYNDROME 02/05/2018 AURE JONES MD Ot M19.91 PRIMARY OSTEOARTHRITIS, UNSPECIFIED SITE 02/05/2018 AURE JONES MD Ot Z51.11 ENCOUNTER FOR ANTINEOPLASTIC CHEMOTHERAP 02/05/2018 AURE JONES MD Ot Z79.82 ARRT TECHNOLOGIST (CURRENT) USE OF ASPIRIN 02/05/2018 AURE JONES MD Ot Z79.899 OTHER ARRT TECHNOLOGIST (CURRENT) DRUG THERAPY 02/05/2018 AURE JONES MD Ot Z87.891 PERSONAL HISTORY OF NICOTINE DEPENDENCE 02/17/2018 AURE JONES MD Ot 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, I 02/17/2018 AURE JONES MD Ot 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 GAMMOPATHY 02/17/2018 AURE JONES MD Ot I10 ESSENTIAL (PRIMARY) HYPERTENSION 02/17/2018 AURE JONES MD Ot I25.10 ATHSCL HEART DISEASE OF [place] CORONARY 02/17/2018 AURE JONES MD Ot I49.5 SICK SINUS SYNDROME 02/17/2018 AURE JONES MD Ot M19.91 PRIMARY OSTEOARTHRITIS, UNSPECIFIED SITE 02/17/2018 AURE JONES MD Ot Z79.82 ARRT TECHNOLOGIST (CURRENT) USE OF ASPIRIN 02/17/2018 AURE JONES MD Ot Z79.899 OTHER ARRT TECHNOLOGIST (CURRENT) DRUG THERAPY 02/17/2018 AURE JONES MD Ot Z87.891 PERSONAL HISTORY OF NICOTINE DEPENDENCE 03/02/2018 AURE JONES MD Ot 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, I 03/02/2018 AURE JONES MD Ot 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 GAMMOPATHY 03/02/2018 AURE JONES MD Ot I10 ESSENTIAL (PRIMARY) HYPERTENSION 03/02/2018 AURE JONES MD Ot I25.10 ATHSCL HEART DISEASE OF [place] CORONARY 03/02/2018 AURE JONES MD Ot I49.5 SICK SINUS SYNDROME 03/02/2018 AURE JONES MD Ot M19.91 PRIMARY OSTEOARTHRITIS, UNSPECIFIED SITE 03/02/2018 AURE JONES MD Ot Z51.11 ENCOUNTER FOR ANTINEOPLASTIC CHEMOTHERAP 03/02/2018 AURE JONES MD Ot Z79.82 [facility] (CURRENT) USE OF ASPIRIN 03/02/2018 AURE JONES MD Ot Z79.899 OTHER ARRT TECHNOLOGIST (CURRENT) DRUG THERAPY 03/02/2018 AURE JONES MD [...] 03/20/2018 MARCI SHARP MD Ot Z79.899 OTHER [facility] (CURRENT) DRUG THERAPY 03/20/2018 MARCI SHARP MD [...] 03/23/2018 MARCI SHARP MD Ot Z79.899 OTHER ARRT TECHNOLOGIST (CURRENT) DRUG THERAPY 03/23/2018 MARCI SHARP MD [...] Ot I10 ESSENTIAL (PRIMARY) HYPERTENSION 03/23/2018 MARCI SHRAP MD Ot J18.9 PNEUMONIA, UNSPECIFIED ORGANISM 03/23/2018 [...] 03/23/2018 MARCI SHARP MD, Ot Z79.899 OTHER ARRT TECHNOLOGIST (CURRENT) DRUG THERAPY 03/23/2018 MARCI SHARP MD [...] MD Ot I25.10 ATHSCL HEART DISEASE OF [place] CORONARY 03/28/2018 AURE JONES MD Ot I49.5 SICK SINUS SYNDROME 03/28/2018 AURE JONES MD Ot M19.91 PRIMARY OSTEOARTHRITIS, UNSPECIFIED SITE 03/28/2018 AURE JONES MD Ot Z51.11 ENCOUNTER FOR ANTINEOPLASTIC CHEMOTHERAP 03/28/2018 AURE JONES MD Ot 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.82 ARRT TECHNOLOGIST (CURRENT) USE OF ASPIRIN 03/28/2018 AURE JONES MD Ot Z79.899 OTHER [facility] (CURRENT) DRUG THERAPY 03/28/2018 AURE JONES MD Ot Z87.891 PERSONAL HISTORY OF NICOTINE DEPENDENCE 04/05/2018 DANNA LAWS MD Ot 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 04/05/2018 DANNA LAWS MD Ot D64.9 ANEMIA, UNSPECIFIED 04/05/2018 DANNA LAWS MD Ot I10 ESSENTIAL (PRIMARY) HYPERTENSION 04/05/2018 DANNA LAWS MD Ot I25.10 ATHSCL HEART DISEASE OF [place] CORONARY 04/05/2018 DANNA LAWS MD Ot I49.5 [...] MD, Ot I25.10 ATHSCL HEART DISEASE OF [place] CORONARY 04/06/2018 AURE JONES MD Ot I49.5 SICK SINUS SYNDROME 04/06/2018 AURE JONES MD Ot M19.91 PRIMARY OSTEOARTHRITIS, UNSPECIFIED SITE 04/06/2018 AURE JONES MD Ot Z51.11 ENCOUNTER FOR ANTINEOPLASTIC CHEMOTHERAP 04/06/2018 AURE JONES MD Ot Z79.82 [facility] (CURRENT) USE OF ASPIRIN 04/06/2018 AURE JONES MD Ot Z79.899 OTHER ARRT TECHNOLOGIST (CURRENT) DRUG THERAPY 04/06/2018 AURE JONES MD, [...] MD, Ot I25.10 ATHSCL HEART DISEASE OF [place] CORONARY 05/19/2018 AJ CUBA MD Ot I49.5 SICK SINUS SYNDROME 05/19/2018 AJ CUBA MD, Ot M19.91 PRIMARY OSTEOARTHRITIS, UNSPECIFIED SITE 05/19/2018 AJ CUBA MD, Ot Z79.82 [facility] (CURRENT) USE OF ASPIRIN 05/19/2018 AJ CUBA MD, Ot Z79.899 OTHER ARRT TECHNOLOGIST (CURRENT) DRUG THERAPY 05/19/2018 AJ CUBA MD, [...] WEAKNESS 05/19/2018 REJI CHONG APRN Ot Z79.82 ARRT TECHNOLOGIST (CURRENT) USE OF ASPIRIN 05/19/2018 REJI CHONG [...] WEAKNESS 05/22/2018 REJI CHONG APRN Ot Z79.82 [facility] (CURRENT) USE OF ASPIRIN 05/22/2018 REJI CHONG [...] EFFUSION, NOT ELSEWHERE CLASSIFI 05/24/2018 LASHONDA LUTHER FUEL TECHNICIAN Ot R10.31 RIGHT LOWER QUADRANT PAIN 05/24/2018 LASHONDA LUTHER FUEL TECHNICIAN Ot Z98.890 OTHER SPECIFIED POSTPROCEDURAL STATES 05/29/2018 AJ CUBA MD, Ot 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, I 05/29/2018 AJ CUBA MD, Ot 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 GAMMOPATHY 05/29/2018 AJ CUBA MD, Ot I10 ESSENTIAL (PRIMARY) HYPERTENSION 05/29/2018 AJ CUBA MD Ot I25.10 ATHSCL HEART DISEASE OF [place] CORONARY 05/29/2018 AJ CUBA MD Ot I49.5 SICK SINUS SYNDROME 05/29/2018 AJ CUBA MD Ot M19.91 PRIMARY OSTEOARTHRITIS, UNSPECIFIED SITE 05/29/2018 AJ CUBA MD Ot Z79.82 [facility] (CURRENT) USE OF ASPIRIN 05/29/2018 AJ CUBA MD, Ot Z79.899 OTHER ARRT TECHNOLOGIST (CURRENT) DRUG THERAPY 05/29/2018 AJ CUBA MD, Ot Z87.891 PERSONAL HISTORY OF NICOTINE DEPENDENCE 05/31/2018 AJ CUBA MD, Ot 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, I 05/31/2018 AJ CUBA MD, Ot 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 GAMMOPATHY 05/31/2018 AJ CUBA MD Ot I10 ESSENTIAL (PRIMARY) HYPERTENSION 05/31/2018 AJ CUBA MD Ot I25.10 ATHSCL HEART DISEASE OF [place] CORONARY 05/31/2018 AJ CUBA MD Ot I49.5 SICK SINUS SYNDROME 05/31/2018 AJ CUBA MD Ot M19.91 PRIMARY OSTEOARTHRITIS, UNSPECIFIED SITE 05/31/2018 AJ CUBA MD Ot Z79.82 ARRT TECHNOLOGIST (CURRENT) USE OF ASPIRIN 05/31/2018 AJ CUBA MD Ot Z79.899 OTHER ARRT TECHNOLOGIST (CURRENT) DRUG THERAPY 05/31/2018 AJ CUBA MD Ot Z87.891 PERSONAL HISTORY OF NICOTINE DEPENDENCE 05/31/2018 AJ CUBA MD, Ot 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, I 05/31/2018 AJ CUBA MD Ot 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 GAMMOPATHY 05/31/2018 AJ CUBA MD Ot I10 ESSENTIAL (PRIMARY) HYPERTENSION 05/31/2018 AJ CUBA MD Ot I25.10 ATHSCL HEART DISEASE OF [place] CORONARY 05/31/2018 AJ CUBA MD Ot I49.5 SICK SINUS SYNDROME 05/31/2018 AJ CUBA MD Ot M19.91 PRIMARY OSTEOARTHRITIS, UNSPECIFIED SITE 05/31/2018 AJ CUBA MD Ot Z79.82 ARRT TECHNOLOGIST (CURRENT) USE OF ASPIRIN 05/31/2018 AJ CUBA MD Ot Z79.899 OTHER ARRT TECHNOLOGIST (CURRENT) DRUG THERAPY 05/31/2018 AJ CUBA MD Ot Z87.891 PERSONAL HISTORY OF NICOTINE DEPENDENCE 06/09/2018 LASHONDA LUTHER APRN Ot R10.31 RIGHT LOWER QUADRANT PAIN 06/09/2018 LASHONDA LUTHER FUEL TECHNICIAN Ot Z98.890 OTHER SPECIFIED POSTPROCEDURAL STATES 06/13/2018 DANNA LAWS MD Ot 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, I 06/13/2018 DANNA ALWS MD Ot G62.9 POLYNEUROPATHY, UNSPECIFIED 06/13/2018 DANNA LAWS MD E Ot I10 ESSENTIAL (PRIMARY) HYPERTENSION 06/13/2018 DANNA LAWS MD E Ot I25.10 ATHSCL HEART DISEASE OF [place] CORONARY 06/13/2018 DANNA LAWS MD Ot I25.41 [...] R10.31 RIGHT LOWER QUADRANT PAIN 06/16/2018 LASHONDA LUHTER APRN Ot Z98.890 OTHER SPECIFIED POSTPROCEDURAL STATES [...] indirect bilirubin measurement (mass/volume) 0.5 mg/ dL [facility] Lipid 1996 panel - 05/04/17 11:24 Serum [...] rickettsii IgG antibody assay (units/volume) < <1:16 Hazen spotted fever panel < <1:10 Francisella tularensis [...] Status Pt. Type Provider Facility Loc./Unit Complaint [id number] 06/14/2018 13:15:00 06/14/2018 23:59:59 CLS Outpatient AJ CUBA MD Via [facility] ONC [id number] 06/01/2018 09:45:00 06/13/2018 14:00:00 DIS Inpatient DANNA LAWS MD E [facility] IRF GENERAL DEBILITY [id number] 05/22/2018 09:27:00 05/22/2018 23:59:59 CLS Outpatient AJ CUBA MD [facility] RAD MARÍA MELANOMA LVL 4 [id number] 05/19/2018 14:13:00 05/19/2018 18:55:00 DIS Emergency REJI CHONG APRN [facility] ER WEAK [id number] 05/18/2018 14:26:00 05/18/2018 23:59:59 CLS Outpatient LASHONDA LUTHER APRN [facility] RAD PAIN R LOWER ABD TO GROIN,PREVIOUS HERNIA SURGERY [id number] 04/25/2018 09:21:00 04/25/2018 23:59:59 CLS Outpatient AJ CUBA MD [facility] RAD HISTORY OF PNEUMONIA [id number] 03/16/2018 12:40:00 04/06/2018 09:56:00 DIS Outpatient AURE JONES MD [facility] ONC [id number] 03/23/2018 10:15:00 04/05/2018 11:15:00 DIS Inpatient EUSEBIA JIMENEZ, DANNA Rodgers [facility] IRF DEBILITY, STENOSIS, RLE WEAKNESS [id number] 03/19/2018 00:10:00 03/23/2018 10:38:00 DIS Inpatient ARON JIMENEZ, MARCI An [facility] 4TH PNEUMONIA,HEMATURIA [id number] 01/19/2018 13:49:00 01/19/2018 23:59:59 CLS Outpatient AURE JONES MD [facility] ONC [id number] 11/11/2017 06:43:00 11/11/2017 13:15:00 DIS Outpatient KIKI ROWE MD [facility] CARD MELANOMA [id number] 11/09/2017 08:06:00 11/09/2017 23:59:59 CLS Outpatient SKYLA RUTH [facility] LAB I10 E78.2 [id number] 11/09/2017 05:39:00 11/09/2017 10:52:00 DIS Outpatient KIKI ROWE MD [facility] PREOP MELANOMA [id number] 11/02/2017 10:49:00 11/03/2017 16:50:00 DIS Outpatient AURE JONES MD [facility] ONC [id number] 10/31/2017 07:42:00 10/31/2017 23:59:59 CLS Outpatient AURE JONES MD [facility] RAD R93.2 ABN PET SCAN OF LIVER [id number] 10/29/2017 07:31:00 10/29/2017 23:59:59 CLS Outpatient AURE JONES MD [facility] RAD R93.2 ABN PET SCAN OF LIVER [id number] 10/28/2017 07:15:00 10/28/2017 23:59:59 CLS Outpatient AURE JONES MD [facility] RAD R93.2 ABN PET SCAN OF LIVER [id number] 10/24/2017 11:07:00 10/24/2017 16:57:00 DIS Outpatient KIKI ROWE MD [facility] ENDO PERSONAL HX MELANOMA /ABNORMAL PET SCAN/SCREENING [id number] 10/21/2017 09:45:00 10/21/2017 09:57:00 DIS Outpatient KIKI ROWE MD [facility] PREOP COLONOSCOPY [id number] 10/19/2017 11:50:00 10/19/2017 23:59:59 CLS Preadmit AURE JONES MD [facility] RAD R29.91 ABN LEG FINDING [id number] 10/18/2017 08:25:00 10/18/2017 23:59:59 CLS Outpatient KIKI ROWE MD [facility] RAD MELANOMA LT FOREARM METASTATIC LYMPH NODULES [id number] 10/07/2017 07:18:00 10/07/2017 15:37:00 DIS Outpatient KIKI ROWE MD [facility] SDC MELANOMA LEFT FOREARM [id number] 10/06/2017 07:47:00 10/06/2017 23:59:59 CLS Outpatient KIKI ROWE MD [facility] RAD NODED NODULE LT THYROID [id number] 10/05/2017 05:33:00 10/05/2017 12:49:00 DIS Outpatient KIKI ROWE MD [facility] PREOP MELANOMA LEFT FOREARM [id number] 09/30/2017 07:46:00 09/30/2017 23:59:59 CLS Outpatient AURE JONES MD [facility] RAD MELANOMA [id number] 05/04/2017 11:21:00 05/04/2017 19:28:00 DIS Outpatient TIERRA MARIN MD [facility] CATH ABN STRESS TEST, HTN [id number] 04/27/2017 06:53:00 04/27/2017 23:59:59 CLS Outpatient TIERRA MARIN MD [facility] CARD HYPERTENSIVE DISORDER I10 [id number] 11/24/2016 07:33:00 11/24/2016 23:59:59 CLS Outpatient TIERRA MARIN MD [facility] CARD I10 HYPERTENSIVE DISORDER [id number] 11/16/2016 07:22:00 11/16/2016 23:59:59 CLS Outpatient TIERRA MARIN MD [facility] RAD I10 HYPERTENSIVE DISORDER [id number] 06/10/2016 06:01:00 06/10/2016 08:55:00 DIS Emergency TERRY HENRY MD [facility] ER CP [id number] 10/01/2015 10:45:00 12/23/2015 00:01:00 DIS Outpatient KATELYNN SALAS MD [facility] ONC [id number] 11/10/2015 10:12:00 11/10/2015 23:59:59 CLS Outpatient FRANCISCO LUNA MD [facility] HH POSSIBLE UTI [id number] 10/21/2015 13:20:00 10/28/2015 12:38:00 DIS Inpatient DANNA LAWS MD [facility] IRF IRF [id number] 10/17/2015 22:34:00 10/21/2015 13:28:00 DIS Inpatient JYOTHI NEWELL MD [facility] 4TH RLL PNEUMONIA [id number] 10/16/2015 08:08:00 10/16/2015 14:30:00 DIS Outpatient JYOTHI NEWELL MD [facility] SDC RIGHT INGUINAL HERNIA [id number] 04/16/2015 10:38:00 07/08/2015 00:01:00 DIS Outpatient KATELYNN SALAS MD [facility] ONC [id number] 10/16/2014 10:44:00 10/22/2014 00:01:00 DIS Outpatient KATELYNN SALAS MD [facility] ONC [id number] 01/07/2014 12:54:00 03/24/2014 00:01:00 DIS Outpatient KATELYNN SALAS MD [facility] ONC [id number] 07/09/2013 13:25:00 09/30/2013 00:01:00 DIS Outpatient KATELYNN SALAS MD [facility] ONC [id number] 01/22/2013 13:57:00 04/10/2013 00:01:00 DIS Outpatient KATELYNN SALAS MD [facility] ONC [id number] 02/13/2013 16:16:00 02/13/2013 23:59:59 CLS Outpatient [id number] 05/10/2018 09:51:00 Document Registration [id number] 07/13/2012 11:35:00 Document Registration [id number] 03/14/2012 09:09:00 Document Registration [id number] 01/19/2012 09:59:00 Document Registration [id number] 01/12/2012 09:51:00 Document Registration [id number] 07/20/2011 13:00:00 Document Registration [id number] 07/20/2011 10:39:00 Document Registration [id number] 04/20/2011 12:55:00 Document Registration [id number] 04/06/2011 14:07:00 Document Registration [id number] 12/08/2010 12:28:00 Document Registration [id number] 12/07/2010 12:41:00 Document Registration [id number] 08/26/2010 08:33:00 Document Registration [id number] 12/16/2009 17:38:00 Document Registration [id number] 04/09/2015 10:56:12 ACT Document Registration
[2018-06-21 14:24] LABS: BASOPHILS # (AUTO) 0.1 10^3/uL (0.0-0.1); BASOPHILS % (AUTO) 1 % (0-10); EOSINOPHILS # (AUTO) 2.7 10^3/uL (0.0-0.3); EOSINOPHILS % (AUTO) 25 % (0-10); HEMATOCRIT 32 % (40-54); HEMOGLOBIN 10.1 G/DL (13.3-17.7); LYMPHOCYTES # (AUTO) 2.5 X 10^3 (1.0-4.0); LYMPHOCYTES % (AUTO) 23 % (12-44); MEAN CORPUSCULAR HEMOGLOBIN 28 PG (25-34); MEAN CORPUSCULAR HGB CONC 32 G/DL (32-36); MEAN CORPUSCULAR VOLUME 88 FL (80-99); MONOCYTES # (AUTO) 0.7 X 10^3 (0.0-1.0); MONOCYTES % (AUTO) 6 % (0-12); NEUTROPHILS # (AUTO) 5.1 X 10^3 (1.8-7.8); NEUTROPHILS % (AUTO) 46 % (42-75); PLATELET COUNT 283 10^3/uL (130-400); RED BLOOD COUNT 3.67 10^6/uL (4.35-5.85); RED CELL DISTRIBUTION WIDTH 14.8 % (10.0-14.5); WHITE BLOOD COUNT 11.1 10^3/uL (4.3-11.0)
[2018-06-21 14:39] LABS: INR 1.3 (0.8-1.4); PROTHROMBIN TIME PATIENT 15.9 SEC (12.2-14.7)
[2018-06-21 14:42] LABS: ALANINE AMINOTRANSFERASE 19 U/L (0-55); ALBUMIN 3.3 GM/DL (3.2-4.5); ALKALINE PHOSPHATASE 58 U/L (40-136); BILIRUBIN,TOTAL 0.7 MG/DL (0.1-1.0); BUN/CREATININE RATIO 21; CALCIUM 9.1 MG/DL (8.5-10.1); CARBON DIOXIDE 28 MMOL/L (21-32); CHLORIDE 105 MMOL/L (98-107); GFR ESTIMATED > 60; GLUCOSE 95 MG/DL (70-105); POTASSIUM 3.5 MMOL/L (3.6-5.0); SODIUM 141 MMOL/L (135-145)
[2018-06-21 14:45] LABS: BILIRUBIN,URINE NEGATIVE (NEGATIVE); CLARITY,URINE CLEAR; COLOR,URINE YELLOW; GLUCOSE, URINE (UA) NEGATIVE (NEGATIVE); KETONES,URINE NEGATIVE (NEGATIVE); LEUKOCYTE ESTERASE ,URINE 3+ (NEGATIVE); NITRITE,URINE POSITIVE (NEGATIVE); PH,URINE 6 (5-9); PROTEIN,URINE 2+ (NEGATIVE); UROBILINOGEN,URINE NORMAL (NORMAL)
[2018-06-21 14:49] LABS: BAND NEUTROPHILS 0 %; EOSINOPHILS % (MANUAL) 17 %; LYMPHOCYTES % (MANUAL) 23 %; MONOCYTES % (MANUAL) 2 %; NEUTROPHILS % (MANUAL) 51 %
[2018-06-21 14:50] LABS: ACANTHOCYTES SLIGHT; ANISOCYTOSIS SLIGHT; BASOPHILS % (MANUAL) 0 %; ELLIPT/OVALOCYTES SLIGHT; PLATELET CLUMPS SLIGHT; POIKILOCYTOSIS SLIGHT; REACTIVE LYMPHOCYTES 7 %
--- NOTE | 2018-06-21 14:56 | Diagnostic Imaging Report ---
Indication: Altered mental status, history of fall Frontal chest obtained at 241 hours p.m. and compared with yesterday The heart is mildly enlarged. Port-A-Cath is unchanged. There is no focal infiltrate or pneumothorax or pleural fluid. There are postop changes in the lower cervical spine. IMPRESSION: Cardiomegaly. No focal infiltrate or pneumothorax or pleural fluid. Dictated by: Dictated on workstation # [id number]
[2018-06-21 15:13] LABS: BACTERIA,URINE FEW /HPF; SQUAMOUS EPITHELIAL CELL,UR RARE /HPF; WBC,URINE >100 /HPF
[2018-06-21 15:14] LABS: HYALINE CASTS, URINE 25-50 /LPF
[2018-06-21] MEDS ORDERED: PIPERACILLIN SODIUM/TAZOBACTAM 4.5 GM in NS (IVPB) 100 ML IV ONE (15:15)
--- NOTE | 2018-06-21 16:43 | Diagnostic Imaging Report ---
INDICATION: Altered mental status and fall. TECHNIQUE: Noncontrast brain CT is performed. FINDINGS: There are mild diffuse atrophic changes. There are patchy low-density changes in the deep white matter compatible with chronic ischemic change of mild severity. There is no acute hemorrhage or subdural or epidural collection. Ventricles are normal in size. There is no calvarial fracture identified. IMPRESSION: Mild atrophic change and chronic change in deep white matter. No acute hemorrhage or mass effect or calvarial fracture. Dictated by: Dictated on workstation # [id number]
--- NOTE | 2018-06-21 16:46 | History & Physical-Hospitalist ---
History of Present Illness HPI/Chief Complaint Pt is a 78yoCM known to me from previous admissions who presented to the ER due to altered mental status. He is unable to provide me any history at this time. He was seen in the ER yesterday and diagnosed with a UTI. he was given Rocephin in the ER and DC with oral antibiotics. This morning he was found on the ground at his retirement crawling around and they believed him to have fallen. He was sent to the ER for CT Head due to the potential fall and confusion. On arrival to the ER he was found to be very hypotensive with SBP in the 70s. He was found to have severe sepsis secondary to UTI and hypotension and is being admitted to the ICU for further management. Source: patient Date Seen 06/21/18 Time Seen by a Provider: 16:41 Attending Physician PCP Damian Ramsey MD Referring Physician Date of Admission Home Medications & Allergies Home Medications Reviewed patient Home Medication Reconciliation performed by pharmacy medication reconciliations calibration technician and/or nursing. Patients Allergies have been reviewed. Allergies Allergies Coded Allergies No Known Drug Allergies (Unverified11/09/17) Past Nszzxcb-Irbitn-Rddpao Hx Past Med/Social Hx: Reviewed Nursing Past Med/Soc Hx Patient Social History Alcohol Use: Denies Use Recreational Drug Use: No Smoking Status: Former Smoker Former Smoker, Quit: May 04, 1977 Type Used: Cigarettes 2nd Hand Smoke Exposure: No Recent Foreign Travel: No Contact w/other who traveled: No Recent Hopitalizations: Yes ([facility]) Recent Infectious Disease Expo: No Immunizations Up To Date Tetanus Booster (TDap): Unknown Date of Pneumonia Vaccine: Apr 19, 2016 Date of Influenza Vaccine: Mar 24, 2018 Seasonal Allergies Seasonal Allergies: Yes Past Medical History Surgeries: Orthopedic, Prostatectomy port Currently Using CPAP: No Currently Using BIPAP: No Cardiac: Hypertension Reproductive: No Sexually Transmitted Disease: No HIV/AIDS: No Genitourinary: Prostate Problems Gastrointestinal: Chronic Constipation Musculoskeletal: Degenerate Disk Disease, Arthritis HEENT: Cataract Loss of Vision: Denies Hearing Impairment: Denies Cancer: Bladder, Prostate, Melanoma Did You Recieve Any Treatments: Yes What Type of Treatment Did You: Chemotherapy, Radiation, Surgical Intervention History of Blood Disorders: No Adverse Reaction to Blood Nguyen: No (N/A) Family History Reviewed Nursing Family Hx No Pertinent Family Hx Review of Systems ROS-Unable to Obtain: due to confusion Constitutional: see HPI Physical Exam Physical Exam Vital Signs Vital Signs - First Documented Capillary Refill : Less Than 3 Seconds Height, Weight, BMI Height: 5'9.00" Weight: 176lbs. 4.0oz. 79.069041wc; 24.4 BMI Method:Stated General Appearance: Chronically ill, Other (ill appearing) HEENT: PERRL/EOMI, Moist Mucous Membranes Neck: Non Tender, Supple Respiratory: Lungs Clear, No Respiratory Distress Cardiovascular: Regular Rate, Rhythm, No Murmur Gastrointestinal: Normal Bowel Sounds, Non Tender, Soft Genital/Rectal: Other (melo in place) Extremity: Normal Capillary Refill, No Calf Tenderness, Pedal Edema Neurologic/Psychiatric: Alert, Disoriented Skin: Normal Color, Warm/Dry Results Results/Procedures Labs Laboratory Tests 06/21/18 14:13 Patient resulted labs reviewed. Imaging: Reviewed Imaging Report Assessment/Plan Admission Diagnosis Severe Sepsis Admission Status: Inpatient Order (span 2 midnights) Reason for Inpatient Admission: ICU level care, high volume lfuid resuscitation, failed outpaitnet management Diagnosis/Problems Diagnosis/Problems (1) Severe sepsis Status: Acute Assessment & Plan: Source: UTI Hypotensive on arrival- responsive to fluids currently Lactic acid normal Cultures ordered in ER Continue on Zosyn UA from yesterday growing Proteus Await sensitivities Palliative care consult placed (2) UTI (urinary tract infection) Status: Acute Assessment & Plan: Proteus from culture yesterday Continue Zosyn Qualifiers: Urinary tract infection type: acute cystitis Hematuria presence: without hematuria Qualified Codes: N30.00 - Acute cystitis without hematuria (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
[2018-06-21] MEDS: NOREPINEPHRINE 4 MG in NS (IVPB) 250 ML IV SCH (17:22)
[2018-06-21] MEDS ORDERED: ONDANSETRON 4 MG/2 ML (SDV) Z0FRAN IV PRN (17:30)
[2018-06-21] MEDS ORDERED: CATHETER FLUSH 10 ML SYR IV PRN (17:30)
[2018-06-21] MEDS: NS IV 1000 ML 1,000 ML IV SCH ×2 (17:31→22:22)
[2018-06-21] MEDS ORDERED: RT-ALBUTEROL SULF 2.5 MG/3 ML PRE-MIX VIAL INH PRN (17:45)
[2018-06-21] MEDS: PIPERACILLIN/TAZO 4.5 GM/NS 100 ML IV SCH ×2 (22:22)
[2018-06-22] VITALS (15 sets, daily range): BP systolic 88–123; BP diastolic 50–92
[2018-06-22] MEDS ORDERED: NS IV 1000 ML 1,000 ML IV SCH (02:33)
[2018-06-22 05:11] LABS: BASOPHILS % (AUTO) 0 % (0-10); EOSINOPHILS # (AUTO) 1.1 10^3/uL (0.0-0.3); EOSINOPHILS % (AUTO) 10 % (0-10); HEMATOCRIT 33 % (40-54); HEMOGLOBIN 10.4 G/DL (13.3-17.7); LYMPHOCYTES # (AUTO) 2.6 X 10^3 (1.0-4.0); LYMPHOCYTES % (AUTO) 24 % (12-44); MEAN CORPUSCULAR HEMOGLOBIN 28 PG (25-34); MEAN CORPUSCULAR HGB CONC 32 G/DL (32-36); MEAN CORPUSCULAR VOLUME 88 FL (80-99); MEAN PLATELET VOLUME 10.1 FL (7.4-10.4); MONOCYTES # (AUTO) 0.7 X 10^3 (0.0-1.0); MONOCYTES % (AUTO) 6 % (0-12); NEUTROPHILS # (AUTO) 6.4 X 10^3 (1.8-7.8); NEUTROPHILS % (AUTO) 60 % (42-75); PLATELET COUNT 245 10^3/uL (130-400); RED BLOOD COUNT 3.76 10^6/uL (4.35-5.85); WHITE BLOOD COUNT 10.7 10^3/uL (4.3-11.0)
[2018-06-22 05:30] LABS: BUN/CREATININE RATIO 22; CALCIUM 8.3 MG/DL (8.5-10.1); CARBON DIOXIDE 18 MMOL/L (21-32); CHLORIDE 110 MMOL/L (98-107); CREATININE SERUM 0.85 MG/DL (0.60-1.30); GFR ESTIMATED > 60; MAGNESIUM 1.5 MG/DL (1.8-2.4); PHOSPHORUS 3.7 MG/DL (2.3-4.7); POTASSIUM 3.6 MMOL/L (3.6-5.0); SODIUM 143 MMOL/L (135-145)
[2018-06-22 05:41] LABS: GLUCOSE 50 MG/DL (70-105)
[2018-06-22] MEDS ORDERED: DEXTROSE 50% 50 ML (IMS) SYR ONE (05:46)
[2018-06-22] MEDS ORDERED: POTASSIUM CL 10MEQ/50ML IVPB 50 ML IV SCH (06:00)
[2018-06-22] MEDS ORDERED: MAGNESIUM 1 GM/100 ML IVPB 100 ML IV SCH (06:00)
[2018-06-22] MEDS ORDERED: KCL 20 MEQ TAB (K-DUR) PO SCH (06:00)
[2018-06-22] MEDS: PIPERACILLIN/TAZO 4.5 GM/NS 100 ML IV SCH ×4 (06:48→14:04)
[2018-06-22] MEDS: POTASSIUM CL 10MEQ/50ML IVPB 50 ML IV SCH ×2 (06:49→07:47)
[2018-06-22] MEDS: MAGNESIUM 1 GM/100 ML IVPB 100 ML IV SCH ×2 (06:49→07:47)
[2018-06-22] MEDS: NOREPINEPHRINE 4 MG in NS (IVPB) 250 ML IV SCH ×2 (06:49→12:42)
--- NOTE | 2018-06-22 07:50 | Diagnostic Imaging Report ---
INDICATION: Dyspnea. TECHNIQUE: Single frontal view of the chest. COMPARISON: 06/21/2018 FINDINGS: Lung volumes are normal. There is central vascular congestion which is increased since the prior exam. There is mild cardiomegaly which appears stable. The right Port-A-Cath tip projects over the low SVC. Surgical clips are seen at the left axilla. Cervical spine fusion hardware is noted. There is increasing airspace opacity in the right lung apex. No pleural effusion or pneumothorax is seen. Degenerative changes are seen in the shoulders bilaterally. IMPRESSION: 1. Stable mild cardiomegaly with increasing central vascular congestion. 2. Increased airspace opacity in the right lung apex, may be due to developing infiltrate. Dictated by: Dictated on workstation # [id number]
--- NOTE | 2018-06-22 08:16 | Progress Note-Hospitalist ---
Subjective HPI/CC On Admission Date Seen by Provider: Jun 22, 2018 Time Seen by Provider: 08:09 Pt is a 78yoCM known to me from previous admissions who presented to the ER due to altered mental status. He is unable to provide me any history at this time. He was seen in the ER yesterday and diagnosed with a UTI. he was given Rocephin in the ER and DC with oral antibiotics. This morning he was [facility] crawling around and they believed him to have fallen. He was sent to the ER for CT Head due to the potential fall and confusion. On arrival to the ER he was found to be very hypotensive with SBP in the 70s. He was found to have severe sepsis secondary to UTI and hypotension and is being admitted to the ICU for further management. Subjective/Events-last exam Pt remains confused and mumbling. Daughter in law at bedside. Discussed minimal improvement since yesterday. Focused Exam Lactate Level 06/21/18 14:13: Lactic Acid Level 1.10 Objective Exam Vital Signs Vital Signs Date Time Temp Pulse Resp B/P (MAP) Pulse Ox O2 Delivery O2 Flow Rate FiO2 06/22/18 15:00 70 23 110/64 (79) 100 Nasal Cannula 3.00 06/22/18 12:00 100.9 Capillary Refill : Less Than 3 Seconds General Appearance: Chronically ill, Other (ill appearing) Respiratory: Lungs Clear, No Respiratory Distress Cardiovascular: Regular Rate, Rhythm, No Murmur Gastrointestinal: Normal Bowel Sounds, Non Tender, Soft Neurologic/Psychiatric: Alert, Disoriented Results/Procedures Lab Laboratory Tests 06/22/18 05:00 Patient resulted labs reviewed. Imaging: Reviewed Imaging Report Assessment/Plan Assessment and Plan Assess & Plan/Chief Complaint Severe Sepsis Diagnosis/Problems Diagnosis/Problems (1) Severe sepsis Status: Acute Assessment & Plan: Source: UTI Hypotensive on arrival- responsive to fluids currently Lactic acid normal Cultures ordered in ER- pending Continue on Zosyn UA from 06/20 growing Proteus Await sensitivities Palliative care consult placed (2) UTI (urinary tract infection) Status: Acute Assessment & Plan: Proteus from culture 06/20 Continue Zosyn Qualifiers: Urinary tract infection type: acute cystitis Hematuria presence: without hematuria Qualified Codes: N30.00 - Acute cystitis without hematuria (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 Assessment & Plan: On Opdivo Follows with Dr Seymour Called to consult but Dr Seymour out of town Agrees with plan discontinuing chemo and palliative care though (4) Hypertension Status: Chronic Assessment & Plan: Hold home meds for hypotension Qualifiers: Hypertension type: essential hypertension Qualified Codes: I10 - Essential (primary) hypertension (5) Unwitnessed fall Assessment & Plan: Concern for fall from prison Ct head negative PT/OT (6) Altered mental status Assessment & Plan: Confused, mostly mumbles Unable to communicate at this time Qualifiers: Altered mental status type: transient alteration of awareness Qualified Codes: R40.4 - Transient alteration of awareness (7) Counseling regarding end of life decision making Status: Acute Assessment & Plan: Discussed with daughter in law that given minimal improvement since yesterday likely would not benefit from CPR or Code Blue should heart stop Son who is DPOA not currently available as he is at work Will return to meet with son and daughter in law this afternoon to discuss goals of care as patient does not currently have capacity Returned to room at 1530 to discuss care plan with family with Palliative Care RN Plan to transition to comfort measures as has gotten worsen on aggressive treatment for sepsis Comfort care order set placed Clinical Quality Measures End of Life/Advance Care Plan: Advance Care discuss with: patient, family member (s) End of Life Care: Comfort Measures, Pallative Care Plan: initiate discussion, clarifying prognosis, identified end-of-life goals, developed treatment plan Time spent on discussion(mins): 20 DVT/VTE Risk/Contraindication: Risk Factor Score Per Nursin RFS Level Per Nursing on Admit: 4+=Very High MATEO ANDERSON MD Jun 22, 2018 08:16
[2018-06-22] MEDS: D5 NS 1000 ML IV SOLUTION 1,000 ML IV SCH ×2 (08:20→14:04)
[2018-06-22] MEDS ORDERED: ONDA4TAB11 PO (09:46)
[2018-06-22] MEDS ORDERED: NEBI5TAB8 PO (09:46)
[2018-06-22] MEDS ORDERED: ACET325T38 PO (09:46)
[2018-06-22] MEDS ORDERED: POTA10TA10 PO (09:46)
[2018-06-22] MEDS ORDERED: LISI10TA2 PO (09:46)
[2018-06-22] MEDS ORDERED: LEVO88TA54 PO (09:46)
[2018-06-22] MEDS ORDERED: CEPH-507 PO (09:54)
[2018-06-22] MEDS ORDERED: ACETAMINOPHEN 500 MG TAB (TYLENOL) PO PRN (11:00)
[2018-06-22] MEDS ORDERED: NS IV 1000 ML 1,000 ML ONE (12:08)
[2018-06-22] MEDS ORDERED: NS IV 1000 ML 1,000 ML IV ONE (12:15)
[2018-06-22] MEDS ORDERED: NS (IVPB) 250 ML ONE (12:33)
[2018-06-22] MEDS ORDERED: NOREPINEPHRINE 4 MG/4 ML (LEVOPHED) AMP IV ONE (12:33)
[2018-06-22] MEDS ORDERED: ONDANSETRON 4 MG/2 ML (SDV) Z0FRAN IVP PRN (16:00)
[2018-06-22] MEDS ORDERED: BISACODYL 10 MG SUPP (DULCOLAX) PR PRN (16:00)
[2018-06-22] MEDS ORDERED: GLYCOPYRROLATE 0.2 MG/ML (ROBINUL) 2 ML VIAL IV PRN (16:00)
[2018-06-22] MEDS ORDERED: PROMETHAZINE INJ 25 MG/ML (PHENERGAN) AMP IVP PRN (16:00)
[2018-06-22] MEDS ORDERED: ACETAMINOPHEN 650 MG SUPP (TYLENOL) PR PRN (16:00)
[2018-06-22] MEDS ORDERED: SALIVA STIMULANT MOUTH SPRAY (BIOTENE) 1.5 OZ MM PRN (16:00)
[2018-06-22] MEDS ORDERED: ARTIFICAL TEARS 0.4 ML UNIT DOSE (REFRESH PLUS) OU PRN (16:00)
[2018-06-22] MEDS: morphine INJ 4 MG/ML 1 ML (VIAL/SYRINGE) IV PRN (21:01)
[2018-06-23] MEDS: LORazepam INJ 2 MG/ML (ATIVAN) VIAL IVP PRN ×4 (08:16→20:47)
[2018-06-23] MEDS: morphine INJ 4 MG/ML 1 ML (VIAL/SYRINGE) IV PRN ×2 (08:23→22:50)
--- NOTE | 2018-06-23 10:56 | Progress Note-Hospitalist ---
Subjective HPI/CC On Admission Date Seen by Provider: Jun 23, 2018 Time Seen by Provider: 10:52 Pt is a 78yoCM known to me from previous admissions who presented to the ER due to altered mental status. He is unable to provide me any history at this time. He was seen in the ER yesterday and diagnosed with a UTI. he was given Rocephin in the ER and DC with oral antibiotics. This morning he was found on the ground at his retirement crawling around and they believed him to have fallen. He was sent to the ER for CT Head due to the potential fall and confusion. On arrival to the ER he was found to be very hypotensive with SBP in the 70s. He was found to have severe sepsis secondary to UTI and hypotension and is being admitted to the ICU for further management. Subjective/Events-last exam Pt resting comfortably. Focused Exam Lactate Level 06/21/18 14:13: Lactic Acid Level 1.10 Objective Exam Vital Signs Vital Signs Date Time Temp Pulse Resp B/P (MAP) Pulse Ox O2 Delivery O2 Flow Rate FiO2 06/23/18 08:05 Nasal Cannula 1.00 06/22/18 15:00 70 23 110/64 (79) 100 06/22/18 12:00 100.9 Capillary Refill : Less Than 3 Seconds General Appearance: No Apparent Distress, Chronically ill Respiratory: Lungs Clear, No Respiratory Distress Cardiovascular: Regular Rate, Rhythm, No Murmur Gastrointestinal: Normal Bowel Sounds, Soft Results/Procedures Lab Patient resulted labs reviewed. Imaging: Reviewed Imaging Report Assessment/Plan Assessment and Plan Assess & Plan/Chief Complaint Septic Shock Diagnosis/Problems Diagnosis/Problems (1) Need for comfort care Assessment & Plan: Placed on comfort care measures Continue Morphine and Ativan prn Palliative care consulted, appreciate recs (2) Counseling regarding end of life decision making Status: Acute (3) Severe sepsis Status: Acute Assessment & Plan: transitioned to comfort measures (4) UTI (urinary tract infection) Status: Acute Qualifiers: Urinary tract infection type: acute cystitis Hematuria presence: without hematuria Qualified Codes: N30.00 - Acute cystitis without hematuria (5) 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
[2018-06-24] MEDS: LORazepam INJ 2 MG/ML (ATIVAN) VIAL IVP PRN ×2 (00:27→05:34)
[2018-06-24] MEDS: morphine INJ 4 MG/ML 1 ML (VIAL/SYRINGE) IV PRN ×2 (03:43→05:53)
--- NOTE | 2018-06-24 11:30 | Discharge Summary-Hospitalist ---
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 He is unable to provide me any history at this time. He was seen in the ER yesterday and diagnosed with a UTI. he was given Rocephin in the ER and DC with oral antibiotics. This morning he was found on the ground at his detention crawling around and they believed him to have fallen. He was sent to the ER for CT Head due to the potential fall and confusion. On arrival to the ER he was found to be very hypotensive with SBP in the 70s. He was found to have severe sepsis secondary to UTI and hypotension and is being admitted to the ICU for further management. Hospital course patient's cultures were negative however this is likely due to the fact that he had been on antibiotic therapy. He never did recover from his infection DO NOT RESUSCITATE status was continued apparently due to previous wishes. Comfort care was initiated after discussion with family and the patient was transferred to the floor were he quietly with family members present. Labs (last 24 hrs) Microbiology 06/21/18 Blood Culture - Preliminary, Resulted No growth 06/21/18 Urine Culture - Final, Complete NO GROWTH Patient resulted labs reviewed. Imaging: Reviewed Imaging Report Discussion & Recommendations Discharge Planning: <30 minutes discharge planning Discharge Home Medications: Active Scripts Active Reported Keflex (Cephalexin) 500 Mg Capsule 500 Mg PO TID END DATE 06-27-18 Tylenol (Acetaminophen) 325 Mg Tablet 650 Mg PO Q4H PRN Ondansetron Odt (Ondansetron) 4 Mg Tab.rapdis 4 Mg PO Q4H PRN Bystolic (Nebivolol HCl) 5 Mg Tablet 5 Mg PO DAILY Lisinopril 10 Mg Tablet 10 Mg PO DAILY Levothyroxine Sodium 88 Mcg Tablet 88 Mcg PO DAILY Potassium Chloride 10 Meq Tablet.er 10 Meq PO DAILY Furosemide 40 Mg Tablet 40 Mg PO DAILY Fish Oil 1,200 mg Fish Oil (Fish Oil/Dha/Epa) 1 Each Capsule 2,400 Mg PO DAILY TAKES 2 (1200MG) CAPSULES Aspirin EC (Aspirin) 81 Mg Tablet.dr 81 Mg PO DAILY Celecoxib 200 Mg Capsule 200 Mg PO DAILY Allergy Relief (Cetirizine HCl) 10 Mg Tablet 10 Mg PO DAILY Colace (Docusate Sodium) 100 Mg Capsule 100 Mg PO DAILY Condition at discharge Instructions to patient/family Please see electronic discharge instructions given to patient. Clinical Quality Measures DVT/VTE Risk/Contraindication: Risk Factor Score Per Nursin RFS Level Per Nursing on Admit: 4+=Very High Copy Copies To 1: RADHA BERNAL MD Problem Qualifiers (1) UTI (urinary tract infection): Urinary tract infection type: acute cystitis Hematuria presence: without hematuria Qualified Codes: N30.00 - Acute cystitis without hematuria (2) Hypertension: Hypertension type: essential hypertension Qualified Codes: I10 - Essential ( primary) hypertension (3) Altered mental status: Altered mental status type: transient alteration of awareness Qualified Codes : R40.4 - Transient alteration of awareness AMIE WALLS MD Jun 24, 2018 11:29
== END 2018-06-24 12:45 | disposition expired | DRG 871 ==
LOC: EDUNIT# 13:46 → ER 13:47 → ICU 16:20 → 4TH 06-22 17:44
PROVIDERS: ADMIT Family Medicine; ATTEND Family Medicine
DX: A41.9 Sepsis, unspecified organism (principal); R65.21 Severe sepsis with septic shock; N30.00 Acute cystitis without hematuria; B96.4 Proteus (mirabilis) (morganii) as the cause of diseases classified elsewhere; C43.62 Malignant melanoma of left upper limb, including shoulder; J30.2 Other seasonal allergic rhinitis; R40.4 Transient alteration of awareness; Z66 Do not resuscitate; Z51.5 Encounter for palliative care; I10 Essential (primary) hypertension; K59.09 Other constipation; M19.91 Primary osteoarthritis, unspecified site; I44.0 Atrioventricular block, first degree; I44.4 Left anterior fascicular block; Z85.46 Personal history of malignant neoplasm of prostate; Z85.51 Personal history of malignant neoplasm of bladder; Z79.899 Other long term (current) drug therapy; Z92.3 Personal history of irradiation; Z90.79 Acquired absence of other genital organ(s); W19.XXXA Unspecified fall, initial encounter; Y92.129 Unspecified place in nursing home as the place of occurrence of the external cause
CPT/HCPCS: 36415; 51702; 70450; 71045; 80048; 80053; 81000; 82962; 83605; 83735; 84100; 85007; 85025; 85027; 85610; 85730; 87040; 87088; 93005; 96361; 96365; 99291